=== PATIENT | male | born 1940 | race Caucasian/White ===

== ENCOUNTER 2022-03-22 07:47 | Emergency (ER) | payer OTHER ==
--- OUTSIDE RECORDS SUMMARY | 2022-03-22 07:51 | XMS REPORT | Continuity of Care Document ---
:1940 Author Organization [facility] t Address [address] [place] [address] Care Team Providers Name Role Phone Sandra Tiwari Attending Clinician Unavailable Payers Payer Name Policy Type Policy Number Effective Date Expiration Date Brice stahl [employer] MEDICARE 53 [id number] 2021 Common S pirit 00:00:00 - [facility] Problems Condition Condition Condition Status Onset Resolution Last Treating Co mments Source Name Details Category Date Date Treatment Clinician Date [id number] Gastroesop Problem Active Co mmon hageal Spirit reflux - [facility] disease without 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 2 [facility] [place] [id number] Mixed Problem Active Common hyperlipid Spirit emia - [facility] [id number] Essential Problem Active Comm on (primary) Spirit hypertensi - [facility] on [facility] [id number] [place] [id number] prostatic Spirit hyperplasi - [facility] a with lower [facility] urinary Medical tract Center symptoms Hyperglyce Type 2 Problem Active Commo n be due to diabetes Spir it type 2 mellitus - [facility] diabetes with mellitus hyperglyce [facility], Medical without Center long-term current use of insulin Allergies, Adverse Reactions, Alerts This patient has no known allergies or adverse reactions. Social History Social Habit Start Date Stop Date Quantity Comments Source History of Tobacco Use Co mmon Spirit - [facility] Sex Assigned At Com mon [facility] Smoking Status Start Date Stop Date Source Never Smoker Common [facility] Medications Ordered Filled Start Stop Current Ordering Indication Dosage Frequency Signature Comments Components Source Medication Medication Date Date Medication? Clinician (SIG) Name Name Blood Blood No QD Blood Glucose Glucose 7-22 Glucose Test - Test - 00:00: Test - Blood Blood No QD Blood Glucose Glucose 7-22 Glucose Test - Test - 00:00: Test - Blood Blood No QD Blood Glucose Glucose 7-22 Glucose Test - Test - 00:00: Test - Blood Blood No QD Blood Glucose Glucose 7-22 Glucose Test - Test - 00:00: Test Albuterol Albuterol No 1{puff_ 6xD Albuterol Sulfate HFA Sulfate HFA 3-01 as_need Sulfate 108 (90 108 (90 00:00: ed} HFA 108 Base) Base) 00 (90 Base) MCG/ACT MCG/ACT MCG/ACT Albuterol Albuterol No 1{puff_ 6xD Albuterol Sulfate HFA Sulfate HFA as_need Sulfate 108 (90 108 (90 ed} HFA 108 Base) Base) (90 Base) MCG/ACT MCG/ACT MCG/ACT Fluorouraci Fluorouraci No 1{appli BID Fluorourac l 5 % l 5 % cation} il 5 % Simvastatin Simvastatin No Simvastati 40 MG 40 MG n 40 MG Metoprolol Metoprolol No Metoprolol Tartrate 50 Tartrate 50 Tartrate MG MG 50 MG Lisinopril Lisinopril No QD Lisinopril 5 MG 5 MG 5 MG Terazosin Terazosin No Terazosin HCl 10 MG HCl 10 MG HCl 10 MG Lisinopril Lisinopril No Lisinopril 5 MG 5 MG 5 MG Pantoprazol Pantoprazol No 1{table QD Pantoprazo e Sodium 40 e Sodium 40 t} le Sodium MG MG 40 MG metFORMIN metFORMIN No BID metFORMIN HCl 1000 MG HCl 1000 MG HCl 1000 MG glipiZIDE glipiZIDE No QD glipiZIDE 10 MG 10 MG 10 MG Albuterol Albuterol No 1{puff_ 6xD Albuterol Sulfate HFA Sulfate HFA as_need Sulfate 108 (90 108 (90 ed} HFA 108 Base) Base) (90 Base) MCG/ACT MCG/ACT MCG/ACT Fluorouraci Fluorouraci No 1{appli BID Fluorourac l 5 % l 5 % cation} il 5 % Simvastatin Simvastatin No Simvastati 40 MG 40 MG n 40 MG Metoprolol Metoprolol No Metoprolol Tartrate 50 Tartrate 50 Tartrate MG MG 50 MG Lisinopril Lisinopril No QD Lisinopril 5 MG 5 MG 5 MG Terazosin Terazosin No Terazosin HCl 10 MG HCl 10 MG HCl 10 MG Lisinopril Lisinopril No Lisinopril 5 MG 5 MG 5 MG Pantoprazol Pantoprazol No 1{table QD Pantoprazo e Sodium 40 e Sodium 40 t} le Sodium MG MG 40 MG glipiZIDE glipiZIDE No QD glipiZIDE 10 MG 10 MG 10 MG Fluorouraci Fluorouraci No 1{appli BID Fluorourac l 5 % l 5 % cation} il 5 % Terazosin Terazosin No Terazosin HCl 10 MG HCl 10 MG HCl 10 MG Albuterol Albuterol No 1{puff_ 6xD Albuterol Sulfate HFA Sulfate HFA as_need Sulfate 108 (90 108 (90 ed} HFA 108 Base) Base) (90 Base) MCG/ACT MCG/ACT MCG/ACT Lisinopril Lisinopril No QD Lisinopril 5 MG 5 MG 5 MG Metoprolol Metoprolol No Metoprolol Tartrate 50 Tartrate 50 Tartrate MG MG 50 MG metFORMIN metFORMIN No BID metFORMIN HCl 1000 MG HCl 1000 MG HCl 1000 MG Lisinopril Lisinopril No Lisinopril 5 MG 5 MG 5 MG Simvastatin Simvastatin No Simvastati 40 MG 40 MG n 40 MG Pantoprazol Pantoprazol No 1{table QD Pantoprazo e Sodium 40 e Sodium 40 t} le Sodium MG MG 40 MG glipiZIDE glipiZIDE No QD glipiZIDE 10 MG 10 MG 10 MG Fluorouraci Fluorouraci No 1{appli BID Fluorourac l 5 % l 5 % cation} il 5 % Terazosin Terazosin No Terazosin HCl 10 MG HCl 10 MG HCl 10 MG Albuterol Albuterol No 1{puff_ 6xD Albuterol Sulfate HFA Sulfate HFA as_need Sulfate 108 (90 108 (90 ed} HFA 108 Base) Base) (90 Base) MCG/ACT MCG/ACT MCG/ACT Lisinopril Lisinopril No QD Lisinopril 5 MG 5 MG 5 MG Metoprolol Metoprolol No Metoprolol Tartrate 50 Tartrate 50 Tartrate MG MG 50 MG metFORMIN metFORMIN No BID metFORMIN HCl 1000 MG HCl 1000 MG HCl 1000 MG Lisinopril Lisinopril No Lisinopril 5 MG 5 MG 5 MG Simvastatin Simvastatin No Simvastati 40 MG 40 MG n 40 MG Pantoprazol Pantoprazol No 1{table QD Pantoprazo e Sodium 40 e Sodium 40 t} le Sodium MG MG 40 MG Terazosin Terazosin No 1{capsu QD Terazosin HCl 10 MG HCl 10 MG le_at_b HCl 10 MG edtime} Simvastatin Simvastatin No 1{table QD Simvastati 40 MG 40 MG t_in_th n 40 MG e_eveni ng} Metoprolol Metoprolol No 1{table BID Metoprolol Tartrate 50 Tartrate 50 t_with_ Tartrate MG MG food} 50 MG glipiZIDE glipiZIDE No BID glipiZIDE 10 MG 10 MG 10 MG Lisinopril Lisinopril No Lisinopril 5 MG 5 MG 5 MG Pantoprazol Pantoprazol No 1{table QD Pantoprazo e Sodium 40 e Sodium 40 t} le Sodium MG MG 40 MG Metformin Metformin No 1{table BID Metformin HCl 1000 MG HCl 1000 MG t_with_ HCl 1000 meals} MG Metoprolol Metoprolol No Metoprolol Tartrate 50 Tartrate 50 Tartrate MG MG 50 MG Lisinopril Lisinopril No Lisinopril 5 MG 5 MG 5 MG Terazosin Terazosin No 1{capsu QD Terazosin HCl 10 MG HCl 10 MG le_at_b HCl 10 MG edtime} glipiZIDE glipiZIDE No glipiZIDE 10 MG 10 MG 10 MG Lisinopril Lisinopril No Lisinopril 5 MG 5 MG 5 MG Simvastatin Simvastatin No Simvastati 40 MG 40 MG n 40 MG metFORMIN metFORMIN No metFORMIN HCl 1000 MG HCl 1000 MG HCl 1000 MG Albuterol Albuterol No 1{puff_ 6xD Albuterol Sulfate HFA Sulfate HFA as_need Sulfate 108 (90 108 (90 ed} HFA 108 Base) Base) (90 Base) MCG/ACT MCG/ACT MCG/ACT Pantoprazol Pantoprazol No 1{table QD Pantoprazo e Sodium 40 e Sodium 40 t} le Sodium MG MG 40 MG Trulicity Trulicity No Trulicity 0.75 0.75 0.75 MG/0.5ML MG/0.5ML MG/0.5ML metFORMIN metFORMIN No BID metFORMIN HCl 1000 MG HCl 1000 MG HCl 1000 MG glipiZIDE glipiZIDE No QD glipiZIDE 10 MG 10 MG 10 MG Trulicity Trulicity 2021- No Trulicity 0.75 0.75 05-30 0.75 MG/0.5ML MG/0.5ML 00:00 MG/0.5ML :00 Vital Signs Vital Name Observation Time Observation Value Comments Source height 2021-11-23 14:30:00 70 [in_i] [facility] weight 2021-11-23 14:30:00 179.9 [lb_av] [facility] temperature 2021-11-23 14:30:00 97.1 [degF] [facility] bmi 2021-11-23 14:30:00 25.81 kg/m2 [facility] blood pressure 2021-11-23 14:30:00 138 mm[Hg] Common [facility] - systolic [facility] blood pressure 2021-11-23 14:30:00 76 mm[Hg] Common [facility] - diastolic [facility] height 2021-11-19 15:20:00 70 [in_i] [facility] weight 2021-11-19 15:20:00 178 [lb_av] [facility] temperature 2021-11-19 15:20:00 97.8 [degF] [facility] bmi 2021-11-19 15:20:00 25.54 kg/m2 [facility] oximetry 2021-11-19 15:20:00 96 % [facility] respiratory rate 2021-11-19 15:20:00 16 /min Comm on [facility] blood pressure 2021-11-19 15:20:00 128 mm[Hg] Common [facility] - systolic [facility] blood pressure 2021-11-19 15:20:00 72 mm[Hg] Common [facility] - diastolic [facility] height 2021-11-19 15:40:00 70 [in_i] [facility] weight 2021-11-19 15:40:00 178 [lb_av] Common S [facility] temperature 2021-11-19 15:40:00 97.8 [degF] Common [facility] bmi 2021-11-19 15:40:00 25.54 kg/m2 [facility] oximetry 2021-11-19 15:40:00 96 % [facility] respiratory rate 2021-11-19 15:40:00 16 /min Comm on [facility] blood pressure 2021-11-19 15:40:00 128 mm[Hg] Common [facility] - systolic [facility] blood pressure 2021-11-19 15:40:00 72 mm[Hg] Common [facility] - diastolic [facility] height 2021-06-29 14:40:00 70 [in_i] Common [facility] weight 2021-06-29 14:40:00 180.2 [lb_av] Common [facility] temperature 2021-06-29 14:40:00 98.2 [degF] Common S [facility] bmi 2021-06-29 14:40:00 25.85 kg/m2 Common S [facility] oximetry 2021-06-29 14:40:00 98 % Common [facility] respiratory rate 2021-06-29 14:40:00 16 /min Comm on [facility] blood pressure 2021-06-29 14:40:00 139 mm[Hg] Common [facility] - systolic [facility] blood pressure 2021-06-29 14:40:00 64 mm[Hg] Common [facility] - diastolic [facility] Procedures This patient has no known procedures. Encounters Start End Encounter Admission Attending Care Care Encounter Source Date/Time Date/Time Type Type Clinicians Facility Department ID 2022-01-13 Outpatient Tiwari, STABRANLC STLMLC [id number] Common 08:03:01 Sandra [facility] 2021-11-17 Outpatient Tiwari, STLMLC STLMLC [id number] Common 10:30:02 Sandra [facility] 2021-10-20 Outpatient Tiwari, STABRANLC STLMLC [id number] Common 13:40:02 Sandra [facility] 2021-10-15 Outpatient Tiwari, STABRANLC STLMLC [id number] Common 14:04:03 Sandra [facility] 2021-10-14 Outpatient Tiwari, STLMLC STLMLC [id number] Common 10:30:01 Sandra [facility] 2021-10-06 Outpatient Tiwari, STABRANLC STLMLC [id number] Common 09:59:03 Sandra [facility] 2021-07-01 Outpatient Tiwari, STABRANLC STLMLC [id number] Common 08:41:04 Sandra [facility] 2021-06-29 Outpatient Tiwari, STABRANLC STLMLC [id number] Common 14:19:02 Sandra [facility] 2021-12-22 2021-12-22 (TEL) STLMLC STLMLC [id number] Co mmon 00:00:00 00:00:00 [facility] 2021-11-23 2021-11-23 OFFICE STLMLC STLMLC [id number] Co mmon 00:00:00 00:00:00 VISIT [facility] PT LEVEL 3 [facility] 2021-11-19 2021-11-19 (MCR WELL) STLMLC STLMLC [id number] Common 00:00:00 00:00:00 Medicare [facility]iri t [facility] - [facility] 2021-11-19 2021-11-19 OFFICE STLMLC STLMLC [id number] Co mmon 00:00:00 00:00:00 VISIT Bobo PUENTE PT - CHI LEVEL 4 [facility] 2021-10-18 2021-10-18 (TEL) STLMLC STLMLC [id number] Co mmon 00:00:00 00:00:00 Spirit - [facility] 2021-06-29 2021-06-29 OFFICE STLC STLMLC [id number] Co mmon 00:00:00 00:00:00 VISIT Bobo PUENTE PT - CHI LEVEL 4 [facility] Results Test Description Test Time Test Comments Results Result Comments Source HEMOGLOBIN A1C 2021-06-29 00:00:00 Test Item Value Reference Range Interpretation Comme nts A1C (test code = 4548-4) 7.8
[2022-03-22 08:25] LABS: Absolute Lymphocytes (CBC) 1.2 K/uL (0.7-4.9); Hematocrit 37.1 % (39.6-49.0); Lymphocytes % 13.9 % (15.3-44.8); MCV 91.4 fL (80-100); MPV 7.7 fL (7.6-11.3); RBC Red Blood Cell Count 4.06 M/uL (4.33-5.43)
[2022-03-22 08:46] LABS: Potassium 4.1 mmol/L (3.5-5.1); Troponin High Sensitivity 18.9 pg/mL (<58.9)
[2022-03-22] MEDS ORDERED: TETANUS & DIPHTHERIA TOX,ADULT 0.5 ML VIAL ONE (08:49)
--- NOTE | 2022-03-22 09:11 | RAD REPORT ---
EXAM DESCRIPTION: RAD - Knee Left 3 View - 03/22/2022 8:38 am CLINICAL HISTORY: Left knee pain FINDINGS: No acute fracture or dislocation is seen. Oval bony/ calcific density posterior knee may represent a loose body
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
[2022-03-22 10:30] VITALS: TEMP 97.5; O2SAT 100
[2022-03-22 10:33] VITALS: BP 174/64
--- NOTE | 2022-03-23 11:37 | EKG ---
Test Date: 2022-03-22 Test Time: 08:27:19 Fire Protection Specialist: JOSÉ MEASUREMENT RESULTS: Intervals: Rate: 72 KS: 136 QRSD: 98 QT: 388 QTc: 424 [place]: P: 257 KS: 136 QRS: 16 T: -42 INTERPRETIVE STATEMENTS: Unusual P axis and short KS, probable junctional rhythm Cannot rule out Inferior infarct, age undetermined Abnormal ECG Compared to ECG 03/10/2015 07:42:24 Sinus bradycardia no longer present Myocardial infarct finding still present Electronically Signed On 03-23-22 11:34:43 DRAIN TILER by Woody Judd
== END 2022-03-22 10:21 | disposition home or self-care (01) ==
LOC: ER 07:47
DX: S00.511A Abrasion of lip, initial encounter (principal); M25.562 Pain in left knee; V49.9XXA Car occupant (driver) (passenger) injured in unspecified traffic accident, initial encounter; Z23 Encounter for immunization; I10 Essential (primary) hypertension; E11.9 Type 2 diabetes mellitus without complications
CPT/HCPCS: 85025; 80048; 36415; 86900; 86850; 86901; 84484; 70450; 72125; 71260; 74177; 73562; 90714; Q9967; 93005

== ENCOUNTER 2023-02-02 05:32 | Emergency (ER) | payer OTHER ==
--- OUTSIDE RECORDS SUMMARY | 2023-02-02 05:35 | XMS REPORT | Continuity of Care Document ---
:1940 Author Organization [facility] t Address [address] [place] [address] Care Team Providers Name Role Phone Sandra Tiwari Attending Clinician Unavailable Payers Payer Name Policy Type Policy Number Effective Date Expiration Date Brice stahl [employer] MEDICARE 53 [id number] 2021 Common S pirit 00:00:00 - [facility] Problems Condition Condition Condition Status Onset Resolution Last Treating Co mments Source Name Details Category Date Date Treatment Clinician Date [id number] Gastroesop Problem Active Co mmon hageal Spirit reflux - [facility] disease without [facility] [id number] Stage 3a Problem Active Comm on chronic Spirit kidney - [facility] disease [facility] [id number] Diabetic Problem Active 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 Spirit y - [facility] associated St with type [facility] 2 diabetes [facility] mellitus [place] [id number] Mixed Problem Active Common hyperlipid Spirit emia - [facility] [id number] Essential Problem Active Comm on (primary) Spirit hypertensi - [facility] on [facility] [id number] [place] [id number] prostatic Spirit hyperplasi - [facility] a with lower [facility] urinary Medical tract Center symptoms Hyperglyce Type 2 Problem Active Commo n be due to diabetes Spir it type 2 mellitus - [facility] diabetes with mellitus hyperglyce [place] s [facility], Medical without Center long-term current use of insulin Allergies, Adverse Reactions, Alerts This patient has no known allergies or adverse reactions. Social History Social Habit Start Date Stop Date Quantity Comments Source History of Tobacco Use Co mmon [facility] - [facility] Sex Assigned At Com [facility] Smoking Status Start Date Stop Date Source Never Smoker Common [facility] Medications Ordered Filled Start Stop Current [...] Base) 00 (90 Base) MCG/ACT MCG/ACT MCG/ACT metFORMIN metFORMIN No BID metFORMIN HCl 1000 [...] Tartrate 50 Tartrate MG MG 50 [facility]opril No QD Lisinopril 5 MG 5 [...] Trulicity 0.75 0.75 0.75 MG/0.5ML MG/0.5ML MG/0.5ML Trulicity Trulicity 2021- No Trulicity 0.75 0.75 05-30 0.75 MG/0.5ML MG/0.5ML 00:00 MG/0.5ML :00 Vital Signs Vital Name Observation Time Observation Value Comments Source height 2021-11-23 14:30:00 70 [in_i] [facility] weight 2021-11-23 14:30:00 179.9 [lb_av] [facility] temperature 2021-11-23 14:30:00 97.1 [degF] [facility] bmi 2021-11-23 14:30:00 25.81 kg/m2 [facility] blood pressure 2021-11-23 14:30:00 138 mm[Hg] Common [facility] - systolic [facility] blood pressure 2021-11-23 14:30:00 76 mm[Hg] Common Spirit - diastolic [facility] height 2021-11-19 15:20:00 70 [in_i] [facility] weight 2021-11-19 15:20:00 178 [lb_av] [facility] temperature 2021-11-19 15:20:00 97.8 [degF] [facility] bmi 2021-11-19 15:20:00 25.54 kg/m2 [facility] oximetry 2021-11-19 15:20:00 96 % [facility] respiratory rate 2021-11-19 15:20:00 16 /min Comm [facility] blood pressure 2021-11-19 15:20:00 128 mm[Hg] Common [facility] - systolic [facility] blood pressure 2021-11-19 15:20:00 72 mm[Hg] Common [facility] - diastolic [facility] height 2021-11-19 15:40:00 70 [in_i] [facility] weight 2021-11-19 15:40:00 178 [lb_av] Common S [facility] temperature 2021-11-19 15:40:00 97.8 [degF] Common [facility] bmi 2021-11-19 15:40:00 25.54 kg/m2 [facility] oximetry 2021-11-19 15:40:00 96 % [facility] respiratory rate 2021-11-19 15:40:00 16 /min Comm on [facility] blood pressure 2021-11-19 15:40:00 128 mm[Hg] Common [facility] - systolic [facility] blood pressure 2021-11-19 15:40:00 72 mm[Hg] Common [facility] - diastolic [facility] height 2021-06-29 14:40:00 70 [in_i] Common [facility] weight 2021-06-29 14:40:00 180.2 [lb_av] Common [facility] temperature 2021-06-29 14:40:00 98.2 [degF] Common S [facility] bmi 2021-06-29 14:40:00 25.85 kg/m2 Common S [facility] oximetry 2021-06-29 14:40:00 98 % Common [facility] respiratory rate 2021-06-29 14:40:00 16 /min Comm on [facility] blood pressure 2021-06-29 14:40:00 139 mm[Hg] Common [facility] - systolic [facility] blood pressure 2021-06-29 14:40:00 64 mm[Hg] Common [facility] - diastolic [facility] Procedures This patient has no known procedures. Encounters Start End Encounter Admission Attending Care Care Encounter Source Date/Time Date/Time Type Type Clinicians Facility Department ID 2022-09-09 Outpatient Tiwari, STABRANLC STLMLC [id number] Common 10:34:01 [facility] 2022-06-06 Outpatient Tiwari, STABRANLC STLMLC [id number] Common 08:22:01 [facility] 2022-01-13 Outpatient Tiwari, STABRANLC STLMLC [id number] Common 08:03:01 [facility] 2021-11-17 Outpatient Tiwari, STABRANLC STLC [id number] Common 10:30:02 [facility] 2021-10-20 Outpatient Tiwari, STLMLC STLC [id number] Common 13:40:02 [facility] 2021-10-15 Outpatient Tiwari, STABRANLC STLMLC [id number] Common 14:04:03 [facility] 2021-10-14 Outpatient Tiwari, STABRANLC STLMLC [id number] Common 10:30:01 [facility] 2021-10-06 Outpatient Tiwari, STLMLC STLMLC [id number] Common 09:59:03 [facility] 2021-07-01 Outpatient Tiwari, STLMLC STLMLC [id number] Common 08:41:04 [facility] 2021-06-29 Outpatient Tiwari, STABRANLC STLMLC [id number] Common 14:19:02 [facility] 2021-12-22 2021-12-22 (TEL) STLC STLMLC [id number] Co mmon 00:00:00 00:00:00 Spirit - [facility] 2021-11-23 2021-11-23 OFFICE STLMLC STLMLC [id number] Co mmon 00:00:00 00:00:00 VISIT NEW Spir it PT LEVEL 3 - [facility] 2021-11-19 2021-11-19 (MCR WELL) STLMLC STLMLC [id number] Common 00:00:00 00:00:00 Medicare Spiri t Wellness - [facility] 2021-11-19 2021-11-19 OFFICE STLMLC STLMLC [id number] Co mmon 00:00:00 00:00:00 VISIT [facility] PT - CHI LEVEL 4 [facility] 2021-10-18 2021-10-18 (TEL) STLMLC STLMLC [id number] Co mmon 00:00:00 00:00:00 Spirit [facility] 2021-06-29 2021-06-29 OFFICE STLMLC STLMLC [id number] Co mmon 00:00:00 00:00:00 VISIT [facility] PT - CHI LEVEL 4 [facility] Results Test Description Test Time Test Comments Results Result Comments Source HEMOGLOBIN A1C 2021-06-29 00:00:00 Test Item Value Reference Range Interpretation Comme nts A1C (test code = 4548-4) 7.8
[2023-02-02] MEDS ORDERED: CODEINE 30MG/APAP 300MG TAB ONE (06:34)
[2023-02-02] MEDS ORDERED: IBUPROFEN 400 MG TAB ONE (06:35)
[2023-02-02] MEDS ORDERED: CEFTRIAXONE 1000 MG/VIAL ONE (06:35)
--- NOTE | 2023-02-02 07:57 | ER ---
Nurse's Notes [facility] Name: Bon Das Age: 82 yrs Sex: Male : 1940 Arrival Date: 02/02/2023 Time: 05:32 Bed 8 Private MD: Diagnosis: Other specified viral diseases;Acute COVID-19, acute pharyngitis Presentation: 02/02 05:47 Chief complaint: Patient states: SORE THROAT x2 DAYS. Coronavirus screen: headache, bp sore throat. Ebola Screen: No symptoms or risks identified at this time. Initial Sepsis Screen: Does the patient meet any 2 criteria? No. Patient's initial sepsis screen is negative. Does the patient have a suspected source of infection? No. Patient's initial sepsis screen is negative. Risk Assessment: Do you want to hurt yourself or someone else? Patient reports no desire to harm self or others. Onset of symptoms is unknown. 05:47 Method Of Arrival: Ambulatory bp 05:47 Acuity: JOSE CRUZ 3 bp Triage Assessment: 05:48 General: Appears in no apparent distress. Behavior is calm, cooperative, appropriate bp for age. Pain: Complains of pain in neck. Respiratory: Reports shortness of breath CHRONIC Onset: The symptoms/episode began/occurred yesterday, the patient reports symptoms have resolved. Historical: - Allergies: 05:48 No Known Allergies; bp - Home Meds: 05:48 glipizide 10 mg Oral tab [Active]; hydrochlorothiazide 25 mg Oral tab [Active]; bp lisinopril 5 mg Oral tab [Active]; metformin 1 Oral tab 1 tab 2 times per day [Active]; metoprolol tartrate 50 mg Oral tab [Active]; simvastatin 40 mg Oral tab [Active]; - PMHx: 05:48 diabetes mellitus; Hypertensive disorder; bp - PSHx: 05:48 Bipass; bp - Immunization history:: Adult Immunizations up to date. - Social history:: Smoking status: Patient denies any tobacco usage or history of. - Family history:: not pertinent. Screenin:[facility] ED Fall Risk Assessment (Adult) History of falling in the last 3 months, ph including since admission No falls in past 3 months (0 pts) Score/Fall Risk Level 0 - 2 = Low Risk Oriented to surroundings, Maintained a safe environment, Provided non-skid footwear. Abuse screen: Denies threats or abuse. Denies injuries from another. Nutritional screening: No deficits noted. Tuberculosis screening: No symptoms or risk factors identified. Assessment: 08:35 Reassessment: Patient appears in no apparent distress at this time. Patient and/or ph family updated on plan of care and expected duration. Pain level reassessed. Patient is alert, oriented x 3, equal unlabored respirations, skin warm/dry/pink. Vital Signs: 05:47 BP 181 / 80; Pulse 112; Resp 20; Temp 97.8; Pulse Ox 100% ; Weight 72.57 kg; bp 08:31 BP 155 / 70; Pulse 95; Resp 18; Pulse Ox 98% on R/A; ph ED Course: 05:36 Patient arrived in ED. ag3 05:45 Gerry Bundy MD is Attending Physician. sp4 05:47 Hardeep Torres, RN is Primary Nurse. bp 05:48 Triage completed. bp 05:48 Arm band placed on. bp 08:31 Patient has correct armband on for positive identification. Pulse ox on. NIBP on. ph 08:36 No provider procedures requiring assistance completed. Patient did not have IV access ph during this emergency room visit. Administered Medications: 05:46 CANCELLED (Duplicate Order): influenza virus vaccine ped0.25 ml IM once; Provide the sp4 Vaccine Information Statement (VIS). 06:10 Drug: Rocephin (cefTRIAXone) IM 1 grams IM once Route: IM; Site: right gluteus; bp 06:15 Drug: Acetaminophen-Codeine PO (300 mg-30 mg) 2 tabs PO once; RASS on ADMIN: Combtv4, bp Very Agttd3, Agttd2, Rstlss1, AlertClm0, Drwsy-1, Lt Sdtn-2, Mod Sdtn-3, Dp Sdtn-4, UnArsble-5 Route: PO; 06:15 Drug: Ibuprofen PO 400 mg PO once Route: PO; bp Medication: 08:31 VIS not applicable for this client. ph Outcome: 07:56 Discharge ordered by . sp4 08:36 Discharged to home ambulatory, with significant other, ph 08:36 Condition: good 08:36 Discharge instructions given to patient, significant other, Instructed on discharge instructions, follow up and referral plans. medication usage, Demonstrated understanding of instructions, follow-up care, medications, Prescriptions given X 3, 08:36 Patient left the ED. ph Signatures: Adeola Davis RN RN ph Hardeep Torres RN RN bp Vandana Cortez ag3 Gerry Bundy MD MD sp4 Corrections: (The following items were deleted from the chart) 05:59 05:47 BP 181 / 80; Pulse 112bpm; Resp 20bpm; Pulse Ox 100%; Temp 97.8F; bp bp
--- NOTE | 2023-02-02 07:57 | EDPHYS ---
Physician Documentation [facility] Name: Bon Das Age: 82 yrs Sex: Male : 1940 Arrival Date: 02/02/2023 Time: 05:32 Bed 8 Private MD: ED Physician Gerry Bundy HPI: 02/02 05:46 This 82 yrs old Male presents to ER via Unassigned with complaints of Cold sp4 Symptoms, Breathing Difficulty. 05:47 PMH - Allergies: 08:04 No Known Allergies Home Meds: 08:04 metoprolol tartrate 50 mg sp4 oral tab; glipizide 10 mg oral tab; metformin 1,000 mg oral tab; hydrochlorothiazide 25 mg oral tab; simvastatin 40 mg oral tab; lisinopril 5 mg oral PMHx: 08:04 Hypertensive disorder; Diabetes mellitus; PSHx: CABG . 05:57 82-year-old male with history diabetes hypertensive disorder and prostate hypertrophy sp4 presents with acute onset off sore throat cough and runny nose starting on Monday 2 days ago. Patient reports pain with swallowing denied any fever chills or body aches. . Historical: - Allergies: 05:48 No Known Allergies; bp - Home Meds: 05:48 glipizide 10 mg Oral tab [Active]; hydrochlorothiazide 25 mg Oral tab [Active]; bp lisinopril 5 mg Oral tab [Active]; metformin 1 Oral tab 1 tab 2 times per day [Active]; metoprolol tartrate 50 mg Oral tab [Active]; simvastatin 40 mg Oral tab [Active]; - PMHx: 05:48 diabetes mellitus; Hypertensive disorder; bp - PSHx: 05:48 [place]; bp - Immunization history:: Adult Immunizations up to date. - Social history:: Smoking status: Patient denies any tobacco usage or history of. - Family history:: not pertinent. ROS: 05:57 Constitutional: Negative for fever, chills, and weight loss, ENT: Positive sore throat, sp4 pain on swallowing, runny nose 05:57 All other systems are negative, Exam: 05:57 Constitutional: This is a well developed, well nourished patient who is awake, alert, sp4 and in no acute distress. Head/Face: Normocephalic, atraumatic. Eyes: Pupils equal round and reactive to light, extra-ocular motions intact. Lids and lashes normal. Conjunctiva and sclera are not injected. Cornea within normal limits. Periorbital areas with no swelling, redness, or edema. ENT: Nares patent. No nasal discharge, no septal abnormalities noted. Tympanic membranes are normal and external auditory canals are clear. Oropharynx with bilateral redness and irritation without exudates, no tonsillar enlargement. Neck: Trachea midline, no thyromegaly or masses palpated, and no cervical lymphadenopathy. Supple, full range of motion without nuchal rigidity, or vertebral point tenderness. Chest/axilla: Normal chest wall appearance and motion. Nontender with no deformity. No lesions are appreciated. Cardiovascular: Regular rate and rhythm with a normal S1 and S2. No gallops, murmurs, or rubs. Normal PMI, no JVD. No pulse deficits. Respiratory: Lungs have equal breath sounds bilaterally, clear to auscultation and percussion. No rales, rhonchi or wheezes noted. No increased work of breathing, no retractions or nasal flaring. Abdomen/GI: Soft, non-tender, with normal bowel sounds. No distension or tympany. No guarding or rebound. No evidence of tenderness throughout. Back: No spinal tenderness. No costovertebral tenderness. Skin: Warm, dry with normal turgor. Normal color with no rashes, no lesions, and no evidence of cellulitis. MS/ Extremity: Pulses equal, no cyanosis. Neurovascular intact. Full, normal range of motion. Neuro: Awake and alert, GCS 15, oriented to person, place, time, and situation. Cranial nerves II-XII grossly intact. Motor strength 5/5 in all extremities. Sensory grossly intact. Psych: Awake, alert, with orientation to person, place and time. Behavior, mood, and affect are within normal limits Vital Signs: 05:47 BP 181 / 80; Pulse 112; Resp 20; Temp 97.8; Pulse Ox 100% ; Weight 72.57 kg; bp 08:31 BP 155 / 70; Pulse 95; Resp 18; Pulse Ox 98% on R/A; ph MDM: 05:49 Patient medically screened. sp4 06:39 Differential diagnosis: Anxiety Reaction Bronchitis reactive airway disease. Antibiotic sp4 administration: Administered Rocephin IM. Data reviewed: vital signs, nurses notes, old medical records, lab test result(s), Flu: negative. ED course: Influenza is negative. Will treat bacterial pharyngitis. Patient stable for discharge home.. 07:54 ED course: Patient positive for COVID-19. Will prescribe p.o. Paxlovid also as needed sp4 Tylenol 3 and Zithromax for the next 5 days. 02/02 05:51 Order name: Strep bp 02/02 05:45 Order name: COVID-19 SARS RT PCR; Complete Time: 07:58 sp4 02/02 05:46 Order name: Influenza Screen (a \T\ B); Complete Time: 06:37 sp4 02/02 06:20 Order name: Throat Culture EDMS Administered Medications: 05:46 CANCELLED (Duplicate Order): influenza virus vaccine ped0.25 ml IM once; Provide the sp4 Vaccine Information Statement (VIS). 06:10 Drug: Rocephin (cefTRIAXone) IM 1 grams IM once Route: IM; Site: right gluteus; bp 06:15 Drug: Acetaminophen-Codeine PO (300 mg-30 mg) 2 tabs PO once; RASS on ADMIN: Combtv4, bp Very Agttd3, Agttd2, Rstlss1, AlertClm0, Drwsy-1, Lt Sdtn-2, Mod Sdtn-3, Dp Sdtn-4, UnArsble-5 Route: PO; 06:15 Drug: Ibuprofen PO 400 mg PO once Route: PO; bp Disposition Summary: 02/02/23 07:56 Discharge Ordered Notes: Location: Home sp4 Problem: new sp4 Symptoms: have improved sp4 Condition: Stable sp4 Diagnosis - Other specified viral diseases sp4 - Acute COVID-19, acute pharyngitis sp4 Followup: sp4 - With: Private Physician - When: 5 - 6 days - Reason: Recheck today's complaints Discharge Instructions: - Discharge Summary Sheet sp4 - Pharyngitis, [id number] sp4 Forms: - Medication Reconciliation Form sp4 - Thank You Letter sp4 - Antibiotic Education sp4 - Prescription Opioid Use sp4 - Patient Portal Instructions sp4 - Leadership Thank You Letter sp4 Prescriptions: - acetaminophen-codeine 300-30 mg Oral tablet - take 1 tablet ORAL route every 8 hours PRN pain or sore throat; 20 tablet; sp4 Refills: 0, Product Selection Permitted - Paxlovid 300 mg (150 mg x 2)-100 mg Oral Tablet, Dose Pack - take 1 dose pack ORAL route as directed on dose pack take TWO 150 mg tablets of sp4 nirmatrelvir with ONE 100 mg tablet of ritonavir twice daily for 5 days; 1 Pack; Refills: 0, Product Selection Permitted - Zithromax Z-Scott 250 mg Oral Tablet - take 1 tablet ORAL route as directed for 5 days Day 1 - take two (2) tablets sp4 one time. Day 2, 3, 4 , 5 take one (1) tablet once daily.; 6 tablet; Refills: 0, Product Selection Permitted Signatures: Dispatcher [employer] Hardeep Madrigal, RN Gerry Locke MD MD sp4 Corrections: (The following items were deleted from the chart) 05:46 05:45 Influenza Virus Vaccine Ped IM 0.25 ml IM once; Provide the Vaccine Information sp4 Statement (VIS). ordered. sp4
[2023-02-02 09:07] VITALS: TEMP 97.8
[2023-02-02 09:09] VITALS: BP 155/70; O2SAT 98
== END 2023-02-02 08:36 | disposition home or self-care (01) ==
LOC: ER 05:32
DX: U07.1 COVID-19 (principal); E11.9 Type 2 diabetes mellitus without complications; I10 Essential (primary) hypertension
CPT/HCPCS: 87070; 87081; 87635; 87804 ×2; 96372; 99284; J0696

== ENCOUNTER 2023-02-02 22:24 | Inpatient (IN) | payer OTHER ==
--- OUTSIDE RECORDS SUMMARY | 2023-02-02 22:27 | XMS REPORT | Continuity of Care Document ---
:1940 Author Organization [facility] t Address [address] [place] [address] Care Team Providers Name Role Phone TiwariSandra griffith Attending Clinician Unavailable Payers Payer Name Policy Type Policy Number Effective Date Expiration Date Brice stahl [employer] 53 [id number] 2021 Common S pirit 00:00:[address] [facility] Problems Condition Condition Condition Status Onset Resolution Last Treating Co mments Source Name Details Category Date Date Treatment Clinician Date [id number] Gastroesop Problem Active Co mmon hageal [facility] reflux - [facility] disease without [facility] [id number] Stage 3a Problem Active Comm on chronic Spirit kidney - [facility] disease 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 2 [facility] [place] [id number] Mixed Problem Active Common hyperlipid Spirit emia - [facility] [id number] Essential Problem Active Comm on (primary) Spirit hypertensi - [facility] on 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 Social History Social Habit Start Date Stop Date Quantity Comments Source History of Tobacco Use Co mmon [facility] Sex Assigned At Com silvia [facility] Smoking Status Start Date Stop Date Source Never Smoker Common [facility] Medications Ordered Filled Start Stop Current Ordering [...] Test - Test - 00:00: Test - 00 Blood Blood No QD Blood Glucose Glucose 7-22 Glucose Test - Test - 00:00: Test - 00 Albuterol Albuterol No 1{puff_ 6xD Albuterol Sulfate [...] 0.75 0.75 MG/0.5ML MG/0.5ML MG/0.5ML Trulicity Trulicity No Trulicity 0.75 0.75 05-30 0.75 MG/0.5ML MG/0.5ML 00:00 MG/0.5ML :00 Vital Signs Vital Name Observation Time Observation Value Comments Source height 2021-11-23 14:30:00 70 [in_i] [facility] weight 2021-11-23 14:30:00 179.9 [lb_av] [facility] [place] temperature 2021-11-23 14:30:00 97.1 [degF] [facility] bmi 2021-11-23 14:30:00 25.81 kg/m2 [facility] blood pressure 2021-11-23 14:30:00 138 mm[Hg] [facility] - systolic [facility] blood pressure 2021-11-23 14:30:00 76 mm[Hg] [facility] - diastolic [facility] height 2021-11-19 15:20:00 70 [in_i] [facility] weight 2021-11-19 15:20:00 178 [lb_av] [facility] temperature 2021-11-19 15:20:00 97.8 [degF] [facility] bmi 2021-11-19 15:20:00 25.54 kg/m2 [facility] oximetry 2021-11-19 15:20:00 96 % Common [facility] respiratory rate 2021-11-19 15:20:00 16 /min Comm on [facility] blood pressure 2021-11-19 15:20:00 128 mm[Hg] Common [facility] - systolic [facility] blood pressure 2021-11-19 15:20:00 72 mm[Hg] Common [facility] - diastolic [facility] height 2021-11-19 15:40:00 70 [in_i] Common [facility] weight 2021-11-19 15:40:00 178 [lb_av] Common [facility] temperature 2021-11-19 15:40:00 97.8 [degF] Common [facility] bmi 2021-11-19 15:40:00 25.54 kg/m2 [facility] oximetry 2021-11-19 15:40:00 96 % Common [facility] respiratory rate 2021-11-19 15:40:00 16 /min Comm on [facility] blood pressure 2021-11-19 15:40:00 128 mm[Hg] Common [facility] - systolic [facility] blood pressure 2021-11-19 15:40:00 72 mm[Hg] Common [facility] - diastolic [facility] height 2021-06-29 14:40:00 70 [in_i] Common [facility] weight 2021-06-29 14:40:00 180.2 [lb_av] Common [facility] temperature 2021-06-29 14:40:00 98.2 [degF] Common [facility] bmi 2021-06-29 14:40:00 25.85 kg/m2 Common [facility] oximetry 2021-06-29 14:40:00 98 % [facility] respiratory rate 2021-06-29 14:40:00 16 /min Comm on [facility] blood pressure 2021-06-29 14:40:00 139 mm[Hg] Common [facility] - systolic [facility] blood pressure 2021-06-29 14:40:00 64 mm[Hg] Common [facility] - diastolic [facility] Procedures This patient has no known procedures. Encounters Start End Encounter Admission Attending Care Care Encounter Source Date/Time Date/Time Type Type Clinicians Facility Department ID 2022-09-09 Outpatient Tiwari, STLMLC STLMLC [id number] Common 10:34:01 Sandra [facility] 2022-06-06 Outpatient Tiwari, STLMLC STLMLC [id number] Common 08:22:01 Sandra [facility] 2022-01-13 Outpatient Tiwari, STLMLC STLMLC [id number] Common 08:03:01 Sandra [facility] 2021-11-17 Outpatient Tiwari, STLMLC STLMLC [id number] Common 10:30:02 Sandra [facility] 2021-10-20 Outpatient Tiwari, STLMLC STLMLC [id number] Common 13:40:02 Sandra [facility] 2021-10-15 Outpatient Tiwari, STLMLC STLMLC [id number] Common 14:04:03 Sandra [facility] 2021-10-14 Outpatient Tiwari, STLMLC STLMLC [id number] Common 10:30:01 Sandra [facility] 2021-10-06 Outpatient Tiwari, STLMLC STLMLC [id number] Common 09:59:03 Sandra [facility] 2021-07-01 Outpatient Tiwari, STLMLC STLMLC [id number] Common 08:41:04 Sandra [facility] 2021-06-29 Outpatient Tiwari, STLMLC STLMLC [id number] Common 14:19:02 Sandra [facility] 2021-12-22 2021-12-22 (TEL) STLMLC STLMLC [id number] Co mmon 00:00:00 00:00:00 Spirit - [facility] 2021-11-23 2021-11-23 OFFICE STLMLC STLMLC [id number] Co mmon 00:00:00 00:00:00 VISIT NEW Spir it PT LEVEL 3 - [facility] 2021-11-19 2021-11-19 (MCR WELL) STLMLC STLMLC [id number] Common 00:00:00 00:00:00 Medicare Spiri t Wellness - [facility] 2021-11-19 2021-11-19 OFFICE STLMLC STLMLC [id number] Co mmon 00:00:00 00:00:00 VISIT Spirit ESTAB PT - [facility] LEVEL [facility] 2021-10-18 2021-10-18 (TEL) STLMLC STLMLC [id number] Co mmon 00:00:00 00:00:00 Spirit - [facility] 2021-06-29 2021-06-29 OFFICE STLMLC STLMLC [id number] Co mmon 00:00:00 00:00:00 VISIT Spirit [facility] PT - [facility] L[facility] Results Test Description Test Time Test Comments Results Result Comments Source HEMOGLOBIN A1C 2021-06-29 00:00:00 Test Item Value Reference Range Interpretation Comme nts A1C (test code = 4548-4) 7.8
[2023-02-02 23:04] LABS: Absolute Lymphocytes (CBC) 0.3 K/uL (0.7-4.9); Lymphocytes % 3.9 % (15.3-44.8); MCV 91.4 fL (80-100); MPV 8.1 fL (7.6-11.3); Platelets 166 thou/uL (152-406); RBC Red Blood Cell Count 4.04 M/uL (4.33-5.43)
[2023-02-02 23:12] LABS: Protime INR 1.21
[2023-02-02] MEDS ORDERED: CODEINE 30MG/APAP 300MG TAB ONE (23:14)
[2023-02-02] MEDS ORDERED: METOCLOPRAMIDE 5 MG TAB ONE (23:14)
[2023-02-02] MEDS ORDERED: IBUPROFEN 400 MG TAB ONE (23:14)
[2023-02-02] MEDS ORDERED: NA CHLORIDE 0.9% 1,000 ML ONE (23:15)
[2023-02-02 23:29] LABS: Bilirubin Direct 0.2 mg/dL (0-0.2); Bilirubin Indirect, Calculated 0.4 mg/dL (0.2-0.8); Bilirubin Total 0.6 mg/dL (0.2-1.0); Potassium 4.3 mEq/L (3.5-5.1); Protein, Total 6.7 g/dL (6.4-8.2); Troponin High Sensitivity 56.2 pg/mL (<58.9)
[2023-02-02 23:32] LABS: Magnesium 0.8 mg/dL (1.6-2.4)
[2023-02-02] MEDS ORDERED: dexAMETHasone 10 MG/ML VIAL ONE (23:43)
[2023-02-02] MEDS ORDERED: MORPHINE 4 MG/ML SYR ONE (23:43)
[2023-02-02] MEDS ORDERED: ONDANSETRON 4 MG/2 ML VIAL ONE (23:44)
[2023-02-03] MEDS ORDERED: Magnesium Sulfate 2gm IVPB 2 G/50 ML BAG IV ONE (00:23)
--- NOTE | 2023-02-03 01:29 | EDPHYS ---
Physician Documentation [facility] Name: Bon Das Age: 82 yrs Sex: Male : 1940 Arrival Date: 02/02/2023 Time: 22:24 Bed 13 Private MD: ED Physician Gerry Bundy HPI: 02/02 22:30 This 82 yrs old Male presents to ER via Unassigned with complaints of COVID+, sp4 Difficulty Swallowing, Fever. 02/03 01:17 82-year-old male presents to the emergency department with complaint of difficulty sp4 swallowing, fever, feeling badly and also having COVID-positive status. Patient was diagnosed with COVID yesterday in the emergency department when he presented with a sore throat. Patient was managed and felt improved and was released home with Paxlovid p.o., Tylenol with codeine and some ibuprofen. Patient has returned now complaining of worsening throat pain pain difficulty swallowing and also fever. Patient was tachycardic on arrival at 130 bpm.. Historical: - Allergies: 02/02 22:40 No Known Allergies; cm10 - PMHx: 22:40 diabetes mellitus; Hypertensive disorder; cm10 - PSHx: 22:40 Bipass; cm10 - Immunization history:: Adult Immunizations up to date. - Social history:: Smoking status: Patient denies any tobacco usage or history of. - Family history:: not pertinent. ROS: 02/03 01:17 Constitutional: Positive fever, chills, generalized weakness, body aches pain on sp4 swallowing, cough and overall feeling unwell All other systems are negative, Exam: 01:17 Constitutional: This is a well developed, well nourished patient who is awake, alert, sp4 uncomfortable appearing elderly male who is tachycardic, nontoxic-appearing Head/Face: Normocephalic, atraumatic. Eyes: Pupils equal round and reactive to light, extra-ocular motions intact. Lids and lashes normal. Conjunctiva and sclera are not injected. Cornea within normal limits. Periorbital areas with no swelling, redness, or edema. ENT: Nares patent. No nasal discharge, no septal abnormalities noted. Tympanic membranes are normal and external auditory canals are clear. Bilateral posterior pharyngeal erythema, no significant swelling, no tonsillar enlargement, no exudates, significant pharyngitis without exudative tonsillitis Neck: Trachea midline, no thyromegaly or masses palpated, and no cervical lymphadenopathy. Supple, full range of motion without nuchal rigidity, or vertebral point tenderness. Chest/axilla: Normal chest wall appearance and motion. Nontender with no deformity. No lesions are appreciated. Cardiovascular: Regular tachycardia. no gallops, murmurs, or rubs. Normal PMI, no JVD. No pulse deficits. Respiratory: Lungs have equal breath sounds bilaterally, clear to auscultation and percussion. No rales, rhonchi or wheezes noted. No increased work of breathing, no retractions or nasal flaring. Abdomen/GI: Soft, non-tender, with normal bowel sounds. No distension or tympany. No guarding or rebound. No evidence of tenderness throughout. Back: No spinal tenderness. No costovertebral tenderness. Skin: Warm, dry with normal turgor. Normal color with no rashes, no lesions, and no evidence of cellulitis. MS/ Extremity: Pulses equal, no cyanosis. Neurovascular intact. Full, normal range of motion. Neuro: Awake and alert, GCS 15, oriented to person, place, time, and situation. Cranial nerves II-XII grossly intact. Motor strength 5/5 in all extremities. Sensory grossly intact. Psych: Awake, alert, with orientation to person, place and time. Behavior, mood, and affect are within normal limits 01:17 ECG was reviewed by the Attending Physician. EKG time 2241, there is sinus tachycardia sp4 at a rate of 130. There are ED is for no ST elevation or depression, no ectopy, there is signs of left ventricular hypertrophy Vital Signs: 02/02 22:37 BP 150 / 68; Pulse 141; Resp 28 S; Temp 99.6; Pulse Ox 98% on R/A; Weight 80.74 kg (R); cm10 Height 5 ft. 9 in. (R); 23:21 BP 136 / 62; Pulse 120; Resp 19 S; Pulse Ox 97% on R/A; ha1 23:35 BP 132 / 58; Pulse 118; Resp 17 S; Temp 98.9(O); Pulse Ox 96% on R/A; ha1 02/03 00:00 BP 115 / 54; Pulse 119; Resp 16 S; Pulse Ox 96% on R/A; ha1 00:30 BP 108 / 55; Pulse 109; Resp 16 S; Pulse Ox 98% on 2 lpm NC; ha1 01:00 BP 121 / 63; Pulse 110; Resp 16 S; Pulse Ox 98% on 2 lpm NC; ha1 01:30 BP 111 / 62; Pulse 100; Resp 16; Pulse Ox 98% on 2 lpm NC; ha1 02/02 22:37 Body Mass Index 26.29 (80.74 kg, 175.26 cm) cm10 MDM: 02/02 22:31 Patient medically screened. sp4 02/03 01:17 ED course: chest X ray - COMPARISON: Prior radiographs are not available for comparison sp4 FINDINGS: CHEST: Cardiac silhouette at the upper limits of normal. Status post median sternotomy. Pleural plaques bilaterally, larger on the right. Decreased lung volumes. No evidence of airspace consolidation or pleural effusions. Limited evaluation with patient in apical lordotic positioning. Follow-up PA and lateral radiographs would be helpful when clinically feasible. IMPRESSION: 1. Pleural plaques bilaterally, larger on the right. 2. Decreased lung volumes. No evidence of airspace consolidation or pleural effusions. 3. Limited evaluation with patient in apical lordotic positioning. Follow-up PA and lateral radiographs would be helpful when clinically feasible. . 01:26 Differential diagnosis: Allergic rhinitis, apthous stomatitis, bronchitis, influenza, sp4 joe's angina, retropharyngeal abcess. Data reviewed: vital signs, nurses notes, old medical records, lab test result(s), EKG, radiologic studies, plain films. Consideration of Admission/Observation Patient was admitted/placed on observation. Escalation of care including admission/observation considered. Management of patient was discussed with the following: Primary Care Provider: Dr. Saldivar. ED course: Patient presents for the second time in 2 days secondary to worsening sore throat, fever, generalized weakness, feeling unwell, COVID-positive status. Patient warrants admission at this time for pain control, IV dexamethasone was given for presumed moderate to severe pharyngitis, will also cover with Rocephin and Zithromax IV, will order Paxlovid for inpatient administration also hydrocodone as needed every 4 hours for sore throat fever and discomfort. Patient additionally may benefit from low-dose ibuprofen 200 mg every 6 hours for sore throat and fever. Patient will benefit from sliding scale insulin for diabetes management. At this time patient is hemodynamically stable for admission to regular floor without telemetry . . 02/02 22:30 Order name: Basic Metabolic Panel; Complete Time: 00:02 sp4 02/02 22:30 Order name: CBC with Diff; Complete Time: 23:21 sp4 02/02 22:30 Order name: LFT's; Complete Time: 00:02 sp4 02/02 22:30 Order name: Magnesium; Complete Time: 00:02 sp4 02/02 22:30 Order name: NT PRO-BNP; Complete Time: 00:02 sp4 02/02 22:30 Order name: PT-INR; Complete Time: 23:21 sp4 02/02 22:30 Order name: Troponin HS; Complete Time: 00:02 4 02/02 22:31 Order name: CRP; Complete Time: 00:02 4 02/03 01:25 Order name: Blood Culture Adult (2) 4 02/02 22:30 Order name: XRAY Chest (1 view) 4 02/03 01:24 Order name: CT Chest Wo Con sp4 02/02 22:30 Order name: EKG; Complete Time: 22:31 4 02/02 22:30 Order name: Cardiac monitoring; Complete Time: 22:45 4 02/02 22:30 Order name: EKG - Nurse/Tech; Complete Time: 22:44 4 02/02 22:30 Order name: IV Saline Lock; Complete Time: 22:57 4 02/02 22:30 Order name: Labs collected and sent; Complete Time: 22:57 4 02/02 22:30 Order name: O2 Per Protocol; Complete Time: 22:57 4 02/02 22:30 Order name: O2 Sat Monitoring; Complete Time: 22:57 4 EC:17 Rate is 130 beats/min. Rhythm is regular, Sinus tachycardia. MN interval is normal. QRS sp4 interval is normal. QT interval is normal. No ST changes noted. Clinical impression: Sinus tachycardia. Interpreted by me. Administered Medications: 02/02 23:00 Drug: Acetaminophen-Codeine PO (300 mg-30 mg) 2 tabs PO once; RASS on ADMIN: Combtv4, ha1 Very Agttd3, Agttd2, Rstlss1, AlertClm0, Drwsy-1, Lt Sdtn-2, Mod Sdtn-3, Dp Sdtn-4, UnArsble-5 Route: PO; 23:30 Follow up: Response: No adverse reaction; Pain is decreased; RASS: Alert and Calm (0) 1 23:00 Drug: MetoCLOPramide PO 10 mg PO once Route: PO; ha1 23:42 Follow up: Response: No adverse reaction 23:00 Drug: NS 0.9% IV 1000 ml IV at 125 ml/hr continuous Route: IV; Rate: 125 ml/hr; Site: [facility] right antecubital; 23:41 Follow up: Response: No adverse reaction; IV Status: Infusion continued 23:00 Drug: Ibuprofen PO 400 mg PO once Route: PO; ha 23:41 Follow up: Response: No adverse reaction; Temperature is decreased 23:30 Drug: Ondansetron IVP 4 mg IVP once; over 2 minutes Route: IVP; Site: right antecubital;[facility] 02/03 00:00 Follow up: Response: No adverse reaction [facility] 02/02 23:32 Drug: morphine IVP or IV 4 mg IVP once over 4 mins Route: IVP; Infused Over: 4 mins; [facility] Site: right antecubital; 02/03 00:00 Follow up: Response: No adverse reaction; Pain is decreased; RASS: Alert and Calm (0) [facility] 02/02 23:36 Drug: Dexamethasone IVP 10 mg IVP once; (not to exceed 40 mg) Route: IVP; Site: right [facility] antecubital; 02/03 00:00 Follow up: Response: No adverse reaction 1 00:14 Drug: Magnesium Sulfate IVPB 2 grams IVPB once over 2 hrs Route: IVPB; Infused Over: 2 ha1 hrs; Site: right antecubital; 02:00 Follow up: Response: No adverse reaction; IV Status: Completed infusion; IV Intake: [id number] 02:27 Drug: Rocephin - Rocephin (cefTRIAXone) IVPB 1 grams IVPB once over 30 mins; (mix in 50 ha1 mL NS) Route: IVPB; Infused Over: 30 mins; Site: right antecubital; 02:39 Follow up: Response: No adverse reaction; IV Status: Completed infusion; IV Intake: [id number] 02:27 Drug: Zithromax IVPB 500 mg IVPB once over 1 hrs; mix in 250 mL NS Route: IVPB; Infused ha1 Over: 1 hrs; Site: left antecubital; 02:50 Follow up: Response: No adverse reaction; IV Status: Infusion continued ha1 Disposition Summary: 02/03/23 01:29 Hospitalization Ordered Notes: Hospitalization Status: Inpatient Admission sp4 Provider: Ajay Saldivar sp4 Condition: Stable sp4 Problem: new sp4 Symptoms: have improved sp4 Bed/Room Type: Standard sp4 Location: Intensive Care Unit(02/03/23 01:54) bp Room Assignment: -(02/03/23 01:54) bp Diagnosis - Viral infection, unspecified sp4 - Acute COVID-19, throat pain, dyne aphasia, hyponatremia, hyperglycemia, sp4 hypomagnesemia, generalized weakness, sinus tachycardia , and volume depletion Forms: - Medication Reconciliation Form sp4 - SBAR form sp4 - Leadership Thank You Letter sp4 Signatures: Dispatcher [employer] EDHardeep Francisco RN RN bp Hanna Elliott RN RN ha1 Gerry Bundy MD MD sp4 Padmini Ring RN RN cm10 Corrections: (The following items were deleted from the chart) 01:54 01:29 Telemetry/MedSurg (Inpatient) sp4 bp 01:54 01:29 sp4 bp
--- NOTE | 2023-02-03 01:29 | ER ---
Nurse's Notes [facility] Name: Bno Das Age: 82 yrs Sex: Male : 1940 Arrival Date: 02/02/2023 Time: 22:24 Bed 13 Private MD: Diagnosis: Viral infection, unspecified;Acute COVID-19, throat pain, dyne aphasia, hyponatremia, hyperglycemia, hypomagnesemia, generalized weakness, sinus tachycardia , and volume depletion Presentation: 02/02 22:37 Chief complaint: Patient states: unable to swallow onset today. Pt was diagnosed with cm10 COVID today and was given paxlovid and z-pack. Pt also reports shortness of breath. Coronavirus screen: Vaccine status: Patient reports receiving the 2nd dose of the covid vaccine. Patient reports having had a previously documented Covid positive illness. February 02, 2023 Client denies travel out of the [place] in the last 14 days. Ebola Screen: Patient denies travel to an Ebola-affected area in the 21 days before illness onset. No symptoms or risks identified at this time. Initial Sepsis Screen: Does the patient meet any 2 criteria? RR > 20 per min. HR > 90 bpm. Does the patient have a suspected source of infection?. Risk Assessment: Do you want to hurt yourself or someone else? Patient reports no desire to harm self or others. Onset of symptoms was February 02, 2023. 22:37 Method Of Arrival: Wheelchair cm10 22:37 Acuity: JOSE CRUZ 2 cm10 Historical: - Allergies: 22:40 No Known Allergies; cm10 - PMHx: 22:40 diabetes mellitus; Hypertensive disorder; cm10 - PSHx: 22:40 Bipass; cm10 - Immunization history:: Adult Immunizations up to date. - Social history:: Smoking status: Patient denies any tobacco usage or history of. - Family history:: not pertinent. Screenin:30 [facility] ED Fall Risk Assessment (Adult) History of falling in the last 3 months, ha1 including since admission No falls in past 3 months (0 pts) Confusion or Disorientation No (0 pts) Intoxicated or Sedated No (0 pts) Impaired Gait No (0 pts) Mobility Assist Device Used Yes (1 pt) Altered Elimination No (0 pt) Score/Fall Risk Level 0 - 2 = Low Risk Oriented to surroundings, Maintained a safe environment, Educated pt \T\ family on fall prevention, incl call for assistance when getting out of bed, Hourly rounding (assess needs \T\ fall precautionary measures) done. 23:21 Abuse screen: Denies threats or abuse. Denies injuries from another. Nutritional ha1 screening: No deficits noted. Tuberculosis screening: No symptoms or risk factors identified. Assessment: 22:30 General: Appears uncomfortable, Behavior is calm, cooperative. Pain: Complains of pain ha1 in throat Pain does not radiate. Pain currently is 10 out of 10 on a pain scale. Quality of pain is described as burning, sharp. Neuro: Level of Consciousness is awake, alert, obeys commands, Oriented to person, place, time, situation. Cardiovascular: Patient's skin is warm and dry. Respiratory: Airway is patent Respiratory effort is even, unlabored, Respiratory pattern is regular, symmetrical. GI: Abdomen is round non-distended, Reports nausea. Musculoskeletal: Circulation, motion, and sensation intact. Range of motion: intact in all extremities. 23:26 Reassessment: CELL# [phone]. ha1 23:30 Reassessment: Patient and/or family updated on plan of care and expected duration. Pain ha1 level reassessed. Patient is alert, oriented x 3, equal unlabored respirations, skin warm/dry/pink. PAIN 5/10 Patient states symptoms have improved. 02/03 00:30 Reassessment: EYES CLOSED. Respiratory: Airway is patent Respiratory effort is even, ha1 unlabored, Respiratory pattern is regular, symmetrical. Vital Signs: 02/02 22:37 BP 150 / 68; Pulse 141; Resp 28 S; Temp 99.6; Pulse Ox 98% on R/A; Weight 80.74 kg (R); cm10 Height 5 ft. 9 in. (R); 23:21 BP 136 / 62; Pulse 120; Resp 19 S; Pulse Ox 97% on R/A; ha1 23:35 BP 132 / 58; Pulse 118; Resp 17 S; Temp 98.9(O); Pulse Ox 96% on R/A; ha1 02/03 00:00 BP 115 / 54; Pulse 119; Resp 16 S; Pulse Ox 96% on R/A; ha1 00:30 BP 108 / 55; Pulse 109; Resp 16 S; Pulse Ox 98% on 2 lpm NC; ha1 01:00 BP 121 / 63; Pulse 110; Resp 16 S; Pulse Ox 98% on 2 lpm NC; ha1 01:30 BP 111 / 62; Pulse 100; Resp 16; Pulse Ox 98% on 2 lpm NC; ha1 02/02 22:37 Body Mass Index 26.29 (80.74 kg, 175.26 cm) cm10 ED Course: 02/02 22:28 Patient arrived in ED. [id number] 22:30 Gerry Bundy MD is Attending Physician. sp4 22:30 Patient has correct armband on for positive identification. Bed in low position. Call ha1 light in reach. Side rails up X 1. Adult w/ patient. 22:39 Triage completed. cm10 22:40 Arm band placed on Patient placed in an exam room, on a stretcher, on youth nutritional monitor, cm10 on pulse oximetry. EKG completed in triage. Results shown to MD. 22:43 Hanna Elliott RN is Primary Nurse. ha1 22:50 Inserted saline lock: 22 gauge in right antecubital area, using aseptic technique. ha1 Blood collected. 02/03 00:32 XRAY Chest (1 view) In Process Unspecified. EDMS 01:28 Ajay Saldivar MD is Hospitalizing Provider. sp4 01:53 CT Chest Wo Con In Process Unspecified. EDMS 02:25 Inserted saline lock: 22 gauge in left antecubital area, using aseptic technique. Blood ha1 collected. 02:27 Blood Culture Adult (2) Sent. ha1 02:35 Provided Education on: NEED FOR ADMIT. ha1 02:50 No provider procedures requiring assistance completed. ha1 02:50 Patient admitted, IV remains in place. ha1 Administered Medications: 02/02 23:00 Drug: Acetaminophen-Codeine PO (300 mg-30 mg) 2 tabs PO once; RASS on ADMIN: Combtv4, ha1 Very Agttd3, Agttd2, Rstlss1, AlertClm0, Drwsy-1, Lt Sdtn-2, Mod Sdtn-3, Dp Sdtn-4, UnArsble-5 Route: PO; 23:30 Follow up: Response: No adverse reaction; Pain is decreased; RASS: Alert and Calm (0) ha1 23:00 Drug: MetoCLOPramide PO 10 mg PO once Route: PO; 1 23:42 Follow up: Response: No adverse reaction ha 23:00 Drug: NS 0.9% IV 1000 ml IV at 125 ml/hr continuous Route: IV; Rate: 125 ml/hr; Site: [facility] right antecubital; 23:41 Follow up: Response: No adverse reaction; IV Status: Infusion continued 23:00 Drug: Ibuprofen PO 400 mg PO once Route: PO; ha1 23:41 Follow up: Response: No adverse reaction; Temperature is decreased 1 23:30 Drug: Ondansetron IVP 4 mg IVP once; over 2 minutes Route: IVP; Site: right antecubital;[facility] 02/03 00:00 Follow up: Response: No adverse reaction [facility] 02/02 23:32 Drug: morphine IVP or IV 4 mg IVP once over 4 mins Route: IVP; Infused Over: 4 mins; [facility] Site: right antecubital; 02/03 00:00 Follow up: Response: No adverse reaction; Pain is decreased; RASS: Alert and Calm (0) [facility] 02/02 23:36 Drug: Dexamethasone IVP 10 mg IVP once; (not to exceed 40 mg) Route: IVP; Site: right [facility] antecubital; 02/03 00:00 Follow up: Response: No adverse reaction 1 00:14 Drug: Magnesium Sulfate IVPB 2 grams IVPB once over 2 hrs Route: IVPB; Infused Over: 2 ha1 hrs; Site: right antecubital; 02:00 Follow up: Response: No adverse reaction; IV Status: Completed infusion; IV Intake: [id number] 02:27 Drug: Rocephin - Rocephin (cefTRIAXone) IVPB 1 grams IVPB once over 30 mins; (mix in 50 ha1 mL NS) Route: IVPB; Infused Over: 30 mins; Site: right antecubital; 02:39 Follow up: Response: No adverse reaction; IV Status: Completed infusion; IV Intake: [id number] 02:27 Drug: Zithromax IVPB 500 mg IVPB once over 1 hrs; mix in 250 mL NS Route: IVPB; Infused ha1 Over: 1 hrs; Site: left antecubital; 02:50 Follow up: Response: No adverse reaction; IV Status: Infusion continued ha1 Medication: 02/02 23:24 VIS not applicable for this client. ha1 Intake: 02/03 02:00 IV: 50ml; Total: 50ml. ha1 02:39 IV: 50ml; Total: 100ml. ha1 Outcome: 01:29 Decision to Hospitalize by Provider. sp4 02:50 Admitted to ICU accompanied by tech, via wheelchair, room 8, with chart, Other PT. ha1 GOING TO ICU OVERFLOW. Report called to SARIKA CASTILLO 02:50 Condition: stable 02:50 Discharge instructions given to patient, Instructed on the need for admit, Demonstrated understanding of instructions, 02:54 Patient left the ED. ha1 Signatures: Dispatcher [employer] EDMS Colleen [id number] Hanna Elliott, RN RN ha1 Gerry Bundy MD MD sp4 Padmini Ring RN RN cm10 Corrections: (The following items were deleted from the chart) 02/02 22:40 22:37 Chief complaint: Patient states: unable to swallow onset today. Pt was diagnosed cm10 with COVID today and was given paxlovid. Pt also reports shortness of breath. cm10
[2023-02-03] MEDS ORDERED: HYDROCODONE/APAP 10/325 TAB PO PRN (01:37)
[2023-02-03] MEDS ORDERED: MORPHINE 2 MG/ML SYR IV PRN (01:37)
[2023-02-03] MEDS ORDERED: CEFTRIAXONE 1000 MG/VIAL ONE (02:23)
[2023-02-03] MEDS ORDERED: NA CHLORIDE 0.9% 250 ML ONE (02:24)
[2023-02-03] MEDS ORDERED: AZITHROMYCIN 500 MG INJ IVPB ONE (02:24)
[2023-02-03] MEDS ORDERED: NA CHLORIDE 0.9% 50 ML ONE (02:24)
[2023-02-03 03:22] VITALS: BMI 23.2
[2023-02-03] MEDS ORDERED: ACETAMINOPHEN 325 MG TABLET PO PRN (05:46)
[2023-02-03] MEDS ORDERED: NA CHLORIDE 0.9% 1,000 ML IV SCH ×2 (05:46→08:06)
[2023-02-03] MEDS ORDERED: ALBUTEROL 2.5 MG/3 ML NEB SOL NEB PRN (05:46)
[2023-02-03] MEDS ORDERED: ZOLPIDEM TARTRATE 5 MG TABLET PO PRN (05:46)
[2023-02-03] MEDS ORDERED: ONDANSETRON 4 MG/2 ML VIAL IV PRN (05:46)
[2023-02-03] MEDS ORDERED: INFLUENZA VACCINE (for 6+ mo) 0.5 ML DOSE IMVAC ONE (08:00)
[2023-02-03 08:09] LABS: Albumin 2.8 g/dL (3.4-5.0); Bilirubin Total 0.3 mg/dL (0.2-1.0); Magnesium 1.8 mg/dL (1.6-2.4); Potassium 4.9 mEq/L (3.5-5.1); Protein, Total 6.4 g/dL (6.4-8.2)
[2023-02-03] MEDS: INSULIN REGULAR (HUMAN) 100 UNIT/ML SQ SCH ×4 (08:29→21:44)
[2023-02-03] MEDS: BUDESONIDE 0.5 MG/2 ML NEB NEB SCH ×3 (09:08→20:00)
[2023-02-03] MEDS: dexAMETHasone 4 MG TAB PO SCH ×2 (09:24→21:19)
[2023-02-03] MEDS: NIRMATRELVIR/RITONAVIR TABLET PO SCH ×2 (09:24→21:21)
--- NOTE | 2023-02-03 12:21 | EKG ---
Test Date: 2023-02-02 Test Time: 22:41:37 Residential Installer: MEHDI MEASUREMENT RESULTS: Intervals: Rate: 130 WA: 192 QRSD: 88 QT: 290 QTc: 426 [place]: P: WA: 192 QRS: 42 T: 40 INTERPRETIVE STATEMENTS: Sinus tachycardia Cannot rule out Anterior infarct, age undetermined T wave abnormality, consider inferior ischemia Abnormal ECG Compared to ECG 03/22/2022 08:27:19 T-wave abnormality now present Possible ischemia now present Myocardial infarct finding still present Electronically Signed On 02-03-23 12:20:04 CDT by Danny Knowles
[2023-02-03] MEDS ORDERED: PHENOL 1.4% ORAL SPRAY 180ML MM PRN (13:22)
--- NOTE | 2023-02-03 14:45 | RAD REPORT ---
EXAM DESCRIPTION: CT - Thorax Wo Kali - 02/03/2023 6:03 am CLINICAL HISTORY: COVID pneumonia TECHNIQUE: Axial computed tomography images of the chest without intravenous contrast. Sagittal an d coronal reformatted images were created and reviewed. This CT exam was performed using one or mor e of the following dose reduction techniques: automated exposure control, adjustment of the mA and/ or kV according to patient size, and/or use of iterative reconstruction technique. COMPARISON: CT Chest dated 03/22/2022 FINDINGS: Lungs: Layering debris within the right mainstem bronchus. Right middle lobe mucus plu gging. Right lower lobe peribronchial thickening. Patchy right middle lobe opacities. Right low er lobe patchy and tree-in-bud opacities and consolidative changes. Pleural space: Bilateral calcified pleural plaques. Trace bilateral pleural effusions. No pneum othorax. Heart: The heart is mildly to moderately enlarged. Coronary artery calcification. No significan t pericardial effusion. Mediastinum: Small hiatal hernia. Bones/joints: Prior median sternotomy. Multilevel spondylosis. Remote left anterolateral 7th ri b fracture. No dislocation. Soft tissues: Unremarkable. Vasculature: Moderate atherosclerotic disease. Lymph nodes: Unremarkable. No enlarged lymph nodes. Liver: Hepatic parenchymal calcifications compatible with remote granulomatous organism exposure. Pancreas: Punctate pancreatic parenchymal calcifications compatible with chronic pancreatitis. IMPRESSION: 1. Right lower lobe and to a lesser extent right middle lobe infiltrates with endobron chial involvement. Right sided mucus plugging most pronounced in the right middle lobe. Aspiratio n not excluded. 2. Other findings as above. Electronically signed by: Pearl Avila MD 02/03/2023 2:36 AM CDT Due to temporary technical issues with the PACS/Fluency reporting system, reports are being signed by the in house radiologists without review as a courtesy to insure prompt reporting. The interpreting radiologist is fully responsible for the content of the report.
--- NOTE | 2023-02-03 14:55 | RAD REPORT ---
EXAM DESCRIPTION: RAD - Chest Single View - 02/03/2023 12:30 am CLINICAL HISTORY: CHEST PAIN TECHNIQUE: AP chest COMPARISON: Prior radiographs are not available for comparison FINDINGS: CHEST: Cardiac silhouette at the upper limits of normal. Status post median sternotomy. Pleural plaques bilaterally, larger on the right. Decreased lung volumes. No evidence of airspace consolidation or pleural effusions. Limited evaluation with patient in apical lordotic positioning. Follow-up PA and lateral radiographs would be helpful when clinically feasible. IMPRESSION: 1. Pleural plaques bilaterally, larger on the right. 2. Decreased lung volumes. No evidence of airspace consolidation or pleural effusions. 3. Limited evaluation with patient in apical lordotic positioning. Follow-up PA and lateral radiogr aphs would be helpful when clinically feasible. Electronically signed by: Gee Whittington MD 02/03/2023 1:07 AM CDT Due to temporary technical issues with the PACS/Fluency reporting system, reports are being signed by the in house radiologists without review as a courtesy to insure prompt reporting. The interpreting radiologist is fully responsible for the content of the report.
[2023-02-03] MEDS: METFORMIN HCL 500 MG TAB PO SCH (16:44)
[2023-02-03] MEDS ORDERED: GLIPIZIDE S.A. 5 MG TAB PO SCH (17:00)
--- NOTE | 2023-02-03 17:02 | P.HP ---
Certification for Inpatient Patient admitted to: Inpatient With expected LOS: >2 Midnights Practitioner: I am a practitioner with admitting privileges, knowledge of patient current condition, hospital course, and medical plan of care. Services: Services provided to patient in accordance with Admission requirements found in Title 42 Section 412.3 of the Code of Federal Regulations Patient History Date of Service: 02/03/23 Reason for admission: FEELS POORLY WITH COVID History of Present Illness: MR. MENDOSA WAS DIAGNOSED WITH COVID A DAY AGO, SENT HOME WITH PAXLOVID AND CAME BACK HE COULD NOT SWALLOW ANYTHING AND HAS A VERY PAINFUL THROAT. HE HAS COVID PNEUMONIA BUT NO SHORTNESS OF BREATH. Allergies No Known Allergies Allergy (Verified 02/03/23 03:17) Home medications list reviewed: Yes Home Medications: Losartan Potassium 50 mg PO DAILY 03/10/15 Metformin HCl [Glucophage] 1,000 mg PO BID 03/10/15 Metoprolol Succinate [Toprol Xl] 50 mg PO DAILY 03/10/15 Simvastatin 40 mg PO DAILY 03/10/15 Terazosin HCl [Hytrin*] 10 mg PO BEDTIME 03/10/15 Glimepiride 4 mg PO DAILY 02/03/23 - Past Medical/Surgical History Has patient received pneumonia vaccine in the past: Yes Diabetic: No -: htn -: niddm -: bph -: high cholesterol -: chest pain -: heart blockage -: right kidney surg - repair - Family History Father -: Cancer Mother -: Diabetes, Stroke - Social History Smoking Status: Never smoker Alcohol use: Yes CD- Drugs: No Caffeine use: Yes Place of Residence: Home Review of Systems 10-point ROS is otherwise unremarkable General: Weakness, Malaise Physical Examination - Vital Signs Temperature: 97.6 F Blood Pressure: 150/74 Pulse: 102 Respirations: 22 Pulse Ox (%): 94 - Physical Exam General: Mild distress HEENT: Atraumatic, PERRLA, Mucous membr. moist/pink, EOMI, Sclerae nonicteric Neck: Supple, 2+ carotid pulse no bruit, No LAD, Without JVD or thyroid abnormality Respiratory: Diminished, Crackles/rales (BASAL.) Cardiovascular: Regular rate/rhythm, Normal S1 S2 Gastrointestinal: Normal bowel sounds, No tenderness Musculoskeletal: No tenderness Integumentary: No rashes Neurological: Normal gait, Normal speech, Normal strength at 5/5 x4 extr, Normal tone, Normal affect Lymphatics: No axilla or inguinal lymphadenopathy - Studies Laboratory Data (last 24 hrs) 02/02/23 02/02/23 02/02/23 22:52 22:52 22:50 WBC 8.30 Hgb 13.1 L Hct 37.0 L Plt Count 166 PT 13.3 H INR 1.21 Sodium 128 L Potassium 4.3 BUN 19 H Creatinine 1.41 H Glucose 247 H Magnesium 0.8 L* Total Bilirubin 0.6 AST 11 L ALT 16 Alkaline Phosphatase 76 Assessment and Plan - Problems (Diagnosis) (1) Pneumonia due to COVID-19 virus Current Visit: Yes Status: Acute Plan: PAXLOIVID RESUMED ORAL STEROIDS BY DR. KAL CAZARES BUDESONIDE. PROGNOSIS GUARDED MAY GO HOME IN AM IF HE IS STRONG ENOUGH. (2) Diabetes Current Visit: Yes Status: Chronic Plan: ADD LANTUS FOR NOW GLUCOSE IS HIGH BEC OF STEROIDS. - Advance Directives Does patient have a Living Will: Yes Does patient have a Durable POA for Healthcare: Yes
[2023-02-03] MEDS ORDERED: FUROSEMIDE 20 MG/ 2ML VIAL IV ONE (17:44)
[2023-02-03] MEDS: ENOXAPARIN 40 MG/0.4 ML SQ SCH (18:07)
[2023-02-03] MEDS: TERAZOSIN HCL 5 MG CAP PO SCH (21:19)
[2023-02-03] MEDS: ATORVASTATIN 20 MG TAB PO SCH (21:19)
[2023-02-04 03:36] LABS: Magnesium 1.7 mg/dL (1.6-2.4); Potassium 4.8 mEq/L (3.5-5.1)
[2023-02-04] MEDS ORDERED: MAGNESIUM SULFATE 1 gm IVPB 1 GM/100 ML BAG IV ONE (05:03)
[2023-02-04] MEDS: BUDESONIDE 0.5 MG/2 ML NEB NEB SCH ×2 (08:50→20:00)
[2023-02-04] MEDS ORDERED: ISOSORBIDE MONO SR 60 MG TAB PO SCH (09:00)
[2023-02-04] MEDS ORDERED: HOME MED 1 EA UNK (Simvastatin [Simvastatin] 40 MG Tablet) PO SCH (09:00)
[2023-02-04] MEDS ORDERED: METOPROLOL SUCCINATE 200 MG PO SCH (09:00)
[2023-02-04] MEDS ORDERED: HOME MED 1 EA UNK (Glimepiride [Glimepiride] 4 MG Tablet) PO SCH (09:00)
[2023-02-04] MEDS: NIRMATRELVIR/RITONAVIR TABLET PO SCH ×2 (09:08→20:32)
[2023-02-04] MEDS: dexAMETHasone 4 MG TAB PO SCH (09:09)
[2023-02-04] MEDS: LOSARTAN POTASSIUM 50 MG TABLET PO SCH (09:09)
[2023-02-04] MEDS: METOPROLOL XL 50 MG TAB PO SCH (09:10)
[2023-02-04] MEDS: METFORMIN HCL 500 MG TAB PO SCH ×2 (09:10→16:56)
[2023-02-04] MEDS: GLIMEPIRIDE 2 MG TABLET PO SCH (09:10)
[2023-02-04] MEDS: INSULIN REGULAR (HUMAN) 100 UNIT/ML SQ SCH ×4 (09:11→20:33)
[2023-02-04] MEDS: INSULIN GLARGINE 100 UNIT/ML SQ SCH (09:11)
--- NOTE | 2023-02-04 10:00 | P.CNS ---
Date of Consult: 02/03/23 Reason for Consult: Coronavirus infection Chief Complaint: FEELS POORLY WITH COVID History of Present Illness: Patient is 82 years of age mated to the hospital complaining of difficulty swallowing and a fever this started on Monday just feeling bad and was di scharged home on Paxlovid Tylenol codeine came back again ending of throat pain and fever Allergies No Known Allergies Allergy (Verified 02/03/23 03:17) Home Medications: Losartan Potassium 50 mg PO DAILY 03/10/15 Metformin HCl [Glucophage] 1,000 mg PO BID 03/10/15 Metoprolol Succinate [Toprol Xl] 50 mg PO DAILY 03/10/15 Simvastatin 40 mg PO DAILY 03/10/15 Terazosin HCl [Hytrin*] 10 mg PO BEDTIME 03/10/15 Glimepiride 4 mg PO DAILY 02/03/23 - Past Medical/Surgical History Diabetic: No -: htn -: niddm -: bph -: high cholesterol -: chest pain -: heart blockage -: right kidney surg - repair - Family History Father Medical History: Cancer Mother Medical History: Diabetes, Stroke - Social History Smoking Status: Unknown if ever smoked Alcohol use: Yes CD- Drugs: No Caffeine use: Yes Place of Residence: Home Review of Systems General: Fever, Weakness Respiratory: Cough Physical Examination Temp Pulse Resp BP Pulse Ox 97.8 F 100 H 18 108/58 L 95 02/04/23 05:26 02/04/23 05:26 02/04/23 05:26 02/04/23 05:26 02/04/23 05:26 General: Alert, Oriented x3 Respiratory: Clear to auscultation bilaterally Cardiovascular: No edema, Normal S1 S2 Gastrointestinal: Normal bowel sounds, Soft and benign - Problems (1) Right lower lobe pneumonia Current Visit: Yes Status: Acute Plan: Patient is 82 years of age tested positive for coronavirus admitted with a sore throat difficulty swallowing presumed right lower lobe pneumonia positive for coronavirus infection 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 Ct RLL Pneumonia Qualifiers: Aspiration pneumonia type: unspecified (2) Renal failure Current Visit: Yes Status: Acute Plan: possible acute. IV fluids/ UA
[2023-02-04] MEDS ORDERED: CEFTRIAXONE 1,000 MG in NA CHLORIDE 0.9% 50 ML IVPB SCH (11:00)
[2023-02-04] MEDS ORDERED: NACHLORIDE 0.45% 1,000 ML IV SCH (11:00)
[2023-02-04] MEDS ORDERED: ALBUTEROL 2.5 MG/3 ML NEB SOL NEB PRN (12:00)
[2023-02-04] MEDS: MAGIC MOUTHWASH 180 ML BTL PO PRN ×2 (12:04→18:27)
--- NOTE | 2023-02-04 14:50 | P.PN ---
Subjective Date of Service: 02/04/23 Chief Complaint: SORE THROAT Subjective: Improving NAVJOT HAS ODYNOPHAGIA. HE HAS NO CHEST PAIN OR DYSPNEA. HE IS COVID POS AND HAS LOBAR PNEUMONIA ALSO Review of Systems 10-point ROS is otherwise unremarkable Physical Examination - Vital Signs Temperature: 97.5 F Blood Pressure: 118/77 Pulse: 88 Respirations: 22 Pulse Ox (%): 99 - Physical Exam General: Oriented x3, Mild distress HEENT: Atraumatic, PERRLA, EOMI Neck: Supple, JVD not distended Respiratory: Clear to auscultation bilaterally, Normal air movement Cardiovascular: Regular rate/rhythm, Normal S1 S2 Gastrointestinal: Normal bowel sounds, No tenderness Musculoskeletal: No tenderness Integumentary: No rashes Neurological: Normal speech, Normal tone, Normal affect Lymphatics: No axilla or inguinal lymphadenopathy - Studies Medications List Reviewed: Yes Assessment And Plan - Current Problems (Diagnosis) (1) Pneumonia due to COVID-19 virus Current Visit: Yes Status: Acute Plan: PAXLOIVID RESUMED ORAL STEROIDS BY DR. BOWDEN NEBS BUDESONIDE. PROGNOSIS GUARDED MAY GO HOME IN AM IF HE IS STRONG ENOUGH. (2) Diabetes Current Visit: Yes Status: Chronic Plan: ADD LANTUS FOR NOW GLUCOSE IS HIGH BEC OF STEROIDS. (3) Bacterial pneumonia Current Visit: Yes Status: Acute Plan: HE MAY HAVE SUPERADDED INFECTION. ADD LEVAQUIN CHECK PROCALCITONIN
[2023-02-04] MEDS: NACHLORIDE 0.45% 1,000 ML IV SCH (14:59)
[2023-02-04] MEDS: ENOXAPARIN 40 MG/0.4 ML SQ SCH (16:55)
[2023-02-04] MEDS: Levofloxacin500mg IV 500 MG/100 ML BAG IV SCH (16:55)
[2023-02-04] MEDS: ATORVASTATIN 20 MG TAB PO SCH (20:33)
[2023-02-04] MEDS: TERAZOSIN HCL 5 MG CAP PO SCH (20:33)
[2023-02-05 03:09] LABS: Absolute Lymphocytes (CBC) 0.5 K/uL (0.7-4.9); Hematocrit 32.4 % (39.6-49.0); Lymphocytes % 6.7 % (15.3-44.8); MCV 90.9 fL (80-100); MPV 8.3 fL (7.6-11.3); Platelets 176 thou/uL (152-406); RBC Red Blood Cell Count 3.56 M/uL (4.33-5.43)
[2023-02-05 03:22] LABS: Potassium 4.8 mEq/L (3.5-5.1)
[2023-02-05] MEDS: INSULIN REGULAR (HUMAN) 100 UNIT/ML SQ SCH ×3 (07:30→16:30)
[2023-02-05] MEDS: GLIMEPIRIDE 2 MG TABLET PO SCH (07:54)
[2023-02-05] MEDS: LOSARTAN POTASSIUM 50 MG TABLET PO SCH (07:54)
[2023-02-05] MEDS: INSULIN GLARGINE 100 UNIT/ML SQ SCH (07:54)
[2023-02-05] MEDS: METOPROLOL XL 50 MG TAB PO SCH (07:54)
[2023-02-05] MEDS: METFORMIN HCL 500 MG TAB PO SCH ×2 (07:54→16:47)
[2023-02-05] MEDS: BUDESONIDE 0.5 MG/2 ML NEB NEB SCH (08:50)
[2023-02-05] MEDS: NACHLORIDE 0.45% 1,000 ML IV SCH (08:58)
[2023-02-05] MEDS: NIRMATRELVIR/RITONAVIR TABLET PO SCH (08:58)
[2023-02-05 09:45] VITALS: O2SAT 92
[2023-02-05] MEDS: Levofloxacin500mg IV 500 MG/100 ML BAG IV SCH (13:57)
[2023-02-05 16:20] VITALS: BP 117/61; TEMP 97.2
[2023-02-05] MEDS: ENOXAPARIN 40 MG/0.4 ML SQ SCH (16:48)
--- NOTE | 2023-02-05 21:18 | P.PN ---
Subjective Date of Service: 02/05/23 Chief Complaint: SORE THROAT Subjective: Improving NAVJOT HAS ODYNOPHAGIA. HE HAS NO CHEST PAIN OR DYSPNEA. HE IS COVID POS AND HAS LOBAR PNEUMONIA ALSO NAVJOT HAS DONE VERY WELL WITH MMW, ORAL LEVAQUIN AND HE IS ABLE TO GO HOME. HE HAS COURSE OF PAXLOVID AT HOME. Physical Examination - Vital Signs Temperature: 97.2 F Blood Pressure: 117/61 Pulse: 85 Respirations: 16 Pulse Ox (%): 92 - Studies Medications List Reviewed: Yes Assessment And Plan - Current Problems (Diagnosis) (1) Pneumonia due to COVID-19 virus Status: Acute Plan: PAXLOIVID RESUMED ORAL STEROIDS BY DR. KAL CAZARES BUDESONIDE. PROGNOSIS GUARDED MAY GO HOME IN AM IF HE IS STRONG ENOUGH. (2) Diabetes Status: Chronic Plan: ADD LANTUS FOR NOW GLUCOSE IS HIGH BEC OF STEROIDS. (3) Bacterial pneumonia Status: Acute Plan: HE MAY HAVE SUPERADDED INFECTION. ADD LEVAQUIN CHECK PROCALCITONIN
== END 2023-02-05 18:01 | disposition home or self-care (01) | DRG 177 ==
LOC: ER 22:24 → 3RD-ICU 02-03 02:16 → 2ND 02-03 21:52
PROVIDERS: ADMIT Internal Medicine; ATTEND Internal Medicine
DX: U07.1 COVID-19 (principal); J12.82 Pneumonia due to coronavirus disease 2019; J15.9 Unspecified bacterial pneumonia; E87.1 Hypo-osmolality and hyponatremia; N17.9 Acute kidney failure, unspecified; E83.42 Hypomagnesemia; E86.9 Volume depletion, unspecified; I10 Essential (primary) hypertension; E11.9 Type 2 diabetes mellitus without complications; E78.00 Pure hypercholesterolemia, unspecified; N40.0 Benign prostatic hyperplasia without lower urinary tract symptoms; R13.10 Dysphagia, unspecified; Z23 Encounter for immunization; Z95.1 Presence of aortocoronary bypass graft; Z79.84 Long term (current) use of oral hypoglycemic drugs; Z79.899 Other long term (current) drug therapy
CPT/HCPCS: 36415; 71045; 71250; 80048; 80053; 80076; 82947; 83735; 83880; 84145; 84484; 85025; 85610; 86140; 87040; 87070; 87081; 87635; 87804; 90471; 93005; 96372; 99284; 99285; J0696; J1100; J1650; J1815; J1940; J2405; J3475; J7030; J7050; J7626; J8540; Q2035

== ENCOUNTER 2023-07-28 21:27 | Emergency (ER) | payer OTHER ==
--- OUTSIDE RECORDS SUMMARY | 2023-07-28 21:30 | XMS REPORT | Continuity of Care Document ---
Author Name Unknown Address [address] [place] [address] [facility] thconnect Address 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 Phone Ajay Saldivar Attending Clinician Unavailable Sandra Tiwari Attending Clinician Unavailable Payers Payer Name Policy Type Policy Number Effective Date Expirati on Date Source [employer] MEDICARE 53 [id number] 2021 00:00:00 [facility] Problems Condition Name Condition Details Condition Category Status Onset Date Resolution Date Last Treatment Date Treating Clinician Comments Source [id number] Gastroesop hageal reflux disease without esophagiti s Problem Active [facility] [id number] Stage 3a chronic kidney disease Problem Active [facility] [id number] 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 Problem Active [facility] [id number] Mixed hyperlipid emia Problem Active [facility] [id number] Essential (primary) hypertensi on Problem Active [facility] [id number] Benign prostatic hyperplasi a with lower urinary tract symptoms Problem Active [facility] Hyperglyce be due to type 2 diabetes mellitus Type 2 diabetes mellitus with hyperglyce be, without long-term current use of insulin Problem Active [facility] Social History Social Habit Start Date Stop Date Quantity Comments Source History of Tobacco Use [facility] Sex Assigned At [facility] Smoking Status Start Date Stop Date Source Never Smoker [facility] Medications Ordered Medication Name Filled Medication Name Start Date Stop Date Current Medication? Ordering Clinician Indication Dosage Frequency Signature (SIG) Comments Components Source Bupivicaine [place] Bupivicaine [place] 5- 00:00: 00 No 5mL [facility] Kenalog (Triamcinol one) Kenalog (Triamcinol one) 5- 00:00: 00 No 1mL [facility] Blood Glucose Test - Blood Glucose Test - - 00:00: 00 No QD Blood Glucose Test - Blood Glucose Test - Blood Glucose Test - 0 - 00:00: 00 No QD Blood Glucose Test - Blood Glucose Test - Blood Glucose Test - 11-19 00:00: 00 No QD Blood Glucose Test - Blood Glucose Test - Blood Glucose Test - 11-19 00:00: 00 No QD Blood Glucose Test - Albuterol Sulfate HFA 108 (90 Base) MCG/ACT Albuterol Sulfate HFA 108 (90 Base) MCG/ACT 3- 00:00: 00 No 1{puff_ as_need ed} 6xD Albuterol Sulfate HFA 108 (90 Base) MCG/ACT metFORMIN HCl 1000 MG metFORMIN HCl 1000 MG No BID metFORMIN HCl 1000 MG Terazosin HCl 10 MG Terazosin HCl 10 MG No Terazosin HCl 10 MG Albuterol Sulfate HFA 108 (90 Base) MCG/ACT Albuterol Sulfate HFA 108 (90 Base) MCG/ACT No 1{puff_ as_need ed} 6xD Albuterol Sulfate HFA 108 (90 Base) MCG/ACT Simvastatin 40 MG Simvastatin 40 MG No Simvastati n 40 MG Losartan Potassium 50 MG Losartan Potassium 50 MG No 1{table t} QD Losartan Potassium 50 MG Lisinopril 5 MG Lisinopril 5 MG No Lisinopril 5 MG Terazosin HCl 10 MG Terazosin HCl 10 MG No 1{capsu le_at_b edtime} QD Terazosin HCl 10 MG Simvastatin 40 MG Simvastatin 40 MG No 1{table t_in_th e_eveni ng} QD Simvastati n 40 MG Metoprolol Tartrate 50 MG Metoprolol Tartrate 50 MG No 1{table t_with_ food} BID Metoprolol Tartrate 50 MG glipiZIDE 10 MG glipiZIDE 10 MG No BID glipiZIDE 10 MG Lisinopril 5 MG Lisinopril 5 MG No Lisinopril 5 MG Pantoprazol e Sodium 40 MG Pantoprazol e Sodium 40 MG No 1{table t} QD Pantoprazo le Sodium 40 MG Metformin HCl 1000 MG Metformin HCl 1000 MG No 1{table t_with_ meals} BID Metformin HCl 1000 MG Metoprolol Tartrate 50 MG Metoprolol Tartrate 50 MG No Metoprolol Tartrate 50 MG Lisinopril 5 MG Lisinopril 5 MG No Lisinopril 5 MG Terazosin HCl 10 MG Terazosin HCl 10 MG No 1{capsu le_at_b edtime} QD Terazosin HCl 10 MG glipiZIDE 10 MG glipiZIDE 10 MG No glipiZIDE 10 MG Lisinopril 5 MG Lisinopril 5 MG No Lisinopril 5 MG Simvastatin 40 MG Simvastatin 40 MG No Simvastati n 40 MG metFORMIN HCl 1000 MG metFORMIN HCl 1000 MG No metFORMIN HCl 1000 MG Albuterol Sulfate HFA 108 (90 Base) MCG/ACT Albuterol Sulfate HFA 108 (90 Base) MCG/ACT No 1{puff_ as_need ed} 6xD Albuterol Sulfate HFA 108 (90 Base) MCG/ACT Pantoprazol e Sodium 40 MG Pantoprazol e Sodium 40 MG No 1{table t} QD Pantoprazo le Sodium 40 MG Trulicity 0.75 MG/0.5ML Trulicity 0.75 MG/0.5ML No Trulicity 0.75 MG/0.5ML metFORMIN HCl 1000 MG metFORMIN HCl 1000 MG No BID metFORMIN HCl 1000 MG glipiZIDE 10 MG glipiZIDE 10 MG No QD glipiZIDE 10 MG Albuterol Sulfate HFA 108 (90 Base) MCG/ACT Albuterol Sulfate HFA 108 (90 Base) MCG/ACT No 1{puff_ as_need ed} 6xD Albuterol Sulfate HFA 108 (90 Base) MCG/ACT Fluorouraci l 5 % Fluorouraci l 5 % No 1{appli cation} BID Fluorourac il 5 % Simvastatin 40 MG Simvastatin 40 MG No Simvastati n 40 MG Metoprolol Tartrate 50 MG Metoprolol Tartrate 50 MG No Metoprolol Tartrate 50 MG Lisinopril 5 MG Lisinopril 5 MG No QD Lisinopril 5 MG Terazosin HCl 10 MG Terazosin HCl 10 MG No Terazosin HCl 10 MG Lisinopril 5 MG Lisinopril 5 MG No Lisinopril 5 MG Pantoprazol e Sodium 40 MG Pantoprazol e Sodium 40 MG No 1{table t} QD Pantoprazo le Sodium 40 MG metFORMIN HCl 1000 MG metFORMIN HCl 1000 MG No BID metFORMIN HCl 1000 MG glipiZIDE 10 MG glipiZIDE 10 MG No QD glipiZIDE 10 MG Albuterol Sulfate HFA 108 (90 Base) MCG/ACT Albuterol Sulfate HFA 108 (90 Base) MCG/ACT No 1{puff_ as_need ed} 6xD Albuterol Sulfate HFA 108 (90 Base) MCG/ACT Fluorouraci l 5 % Fluorouraci l 5 % No 1{appli cation} BID Fluorourac il 5 % Simvastatin 40 MG Simvastatin 40 MG No Simvastati n 40 MG Metoprolol Tartrate 50 MG Metoprolol Tartrate 50 MG No Metoprolol Tartrate 50 MG Lisinopril 5 MG Lisinopril 5 MG No QD Lisinopril 5 MG Terazosin HCl 10 MG Terazosin HCl 10 MG No Terazosin HCl 10 MG Lisinopril 5 MG Lisinopril 5 MG No Lisinopril 5 MG Pantoprazol e Sodium 40 MG Pantoprazol e Sodium 40 MG No 1{table t} QD Pantoprazo le Sodium 40 MG glipiZIDE 10 MG glipiZIDE 10 MG No QD glipiZIDE 10 MG Fluorouraci l 5 % Fluorouraci l 5 % No 1{appli cation} BID Fluorourac il 5 % Terazosin HCl 10 MG Terazosin HCl 10 MG No Terazosin HCl 10 MG Albuterol Sulfate HFA 108 (90 Base) MCG/ACT Albuterol Sulfate HFA 108 (90 Base) MCG/ACT No 1{puff_ as_need ed} 6xD Albuterol Sulfate HFA 108 (90 Base) MCG/ACT Lisinopril 5 MG Lisinopril 5 MG No QD Lisinopril 5 MG Metoprolol Tartrate 50 MG Metoprolol Tartrate 50 MG No Metoprolol Tartrate 50 MG metFORMIN HCl 1000 MG metFORMIN HCl 1000 MG No BID metFORMIN HCl 1000 MG Lisinopril 5 MG Lisinopril 5 MG No Lisinopril 5 MG Simvastatin 40 MG Simvastatin 40 MG No Simvastati n 40 MG Pantoprazol e Sodium 40 MG Pantoprazol e Sodium 40 MG No 1{table t} QD Pantoprazo le Sodium 40 MG glipiZIDE 10 MG glipiZIDE 10 MG No QD glipiZIDE 10 MG Fluorouraci l 5 % Fluorouraci l 5 % No 1{appli cation} BID Fluorourac il 5 % Terazosin HCl 10 MG Terazosin HCl 10 MG No Terazosin HCl 10 MG Albuterol Sulfate HFA 108 (90 Base) MCG/ACT Albuterol Sulfate HFA 108 (90 Base) MCG/ACT No 1{puff_ as_need ed} 6xD Albuterol Sulfate HFA 108 (90 Base) MCG/ACT Lisinopril 5 MG Lisinopril 5 MG No QD Lisinopril 5 MG Metoprolol Tartrate 50 MG Metoprolol Tartrate 50 MG No Metoprolol Tartrate 50 MG metFORMIN HCl 1000 MG metFORMIN HCl 1000 MG No BID metFORMIN HCl 1000 MG Lisinopril 5 MG Lisinopril 5 MG No Lisinopril 5 MG Simvastatin 40 MG Simvastatin 40 MG No Simvastati n 40 MG Pantoprazol e Sodium 40 MG Pantoprazol e Sodium 40 MG No 1{table t} QD Pantoprazo le Sodium 40 MG Pantoprazol e Sodium 40 MG Pantoprazol e Sodium 40 MG No 1{table t} QD Pantoprazo le Sodium 40 MG Metoprolol Succinate Metoprolol Succinate No Metoprolol Succinate Simvastatin 40 MG Simvastatin 40 MG No Simvastati n 40 MG Lisinopril 5 MG Lisinopril 5 MG No QD Lisinopril 5 MG Metoprolol Tartrate 50 MG Metoprolol Tartrate 50 MG No Metoprolol Tartrate 50 MG Celecoxib Celecoxib No Celecoxib Fluorouraci l 5 % Fluorouraci l 5 % No 1{appli cation} BID Fluorourac il 5 % Metoprolol Tartrate 50 MG Metoprolol Tartrate 50 MG No Metoprolol Tartrate 50 MG Glimepiride 4 MG Glimepiride 4 MG No 1{table t_with_ breakfa st_or_t he_firs t_main_ meal_of _the_da y} QD Glimepirid e 4 MG glipiZIDE 10 MG glipiZIDE 10 MG No QD glipiZIDE 10 MG Terazosin HCl 10 MG Terazosin HCl 10 MG No Terazosin HCl 10 MG Blood Glucose Test - Blood Glucose Test - No QD Blood Glucose Test - Trulicity 0.75 MG/0.5ML Trulicity 0.75 MG/0.5ML 09-27 00:00 :00 No Trulicity 0.75 MG/0.5ML Vital Signs Vital Name Observation Time Observation Value Comments S ource height 2021-11-23 14:30:00 70 [in_i] Commo n [facility] weight 2021-11-23 14:30:00 179.9 [lb_av] Co mmon [facility] temperature 2021-11-23 14:30:00 97.1 [degF] Com [facility] bmi 2021-11-23 14:30:00 25.81 kg/m2 Comm on [facility] blood pressure systolic 2021-11-23 14:30:00 138 mm[Hg] Common [facility] blood pressure diastolic 2021-11-23 14:30:00 76 mm[Hg] Common [facility] height 2021-11-19 15:20:00 70 [in_i] Commo n [facility] weight 2021-11-19 15:20:00 178 [lb_av] Comm on [facility] temperature 2021-11-19 15:20:00 97.8 [degF] Com [facility] bmi 2021-11-19 15:20:00 25.54 kg/m2 Comm on [facility] oximetry 2021-11-19 15:20:00 96 % Commo n [facility] respiratory rate 2021-11-19 15:20:00 16 /min Common [facility] blood pressure systolic 2021-11-19 15:20:00 128 mm[Hg] [facility] blood pressure diastolic 2021-11-19 15:20:00 72 mm[facility]Hg[facility] height 2021-11-19 15:40:00 70 [in_i] Commo n [facility] weight 2021-11-19 15:40:00 178 [lb_av] Comm on [facility] temperature 2021-11-19 15:40:00 97.8 [degF] Com mon [facility] bmi 2021-11-19 15:40:00 25.54 kg/m2 Comm on [facility] oximetry 2021-11-19 15:40:00 96 % Commo n [facility] respiratory rate 2021-11-19 15:40:00 16 /min [facility] blood pressure systolic 2021-11-19 15:40:00 128 mm[Hg] [facility] blood pressure diastolic 2021-11-19 15:40:00 72 mm[Hg] [facility] height 2021-06-29 14:40:00 70 [in_i] Commo n [facility] weight 2021-06-29 14:40:00 180.2 [lb_av] Co mmon [facility] temperature 2021-06-29 14:40:00 98.2 [degF] Com mon [facility] bmi 2021-06-29 14:40:00 25.85 kg/m2 Comm on [facility] oximetry 2021-06-29 14:40:00 98 % Commo n [facility] respiratory rate 2021-06-29 14:40:00 16 /min [facility] blood pressure systolic 2021-06-29 14:40:00 139 mm[Hg] [facility] blood pressure diastolic 2021-06-29 14:40:00 64 mm[Hg] [facility] Encounters Start Date/Time End Date/Time Encounter Type Admission Type Attending [facility] Facility Care Department Encounter ID Source 2023-02-22 09:25:00 Outpatient Ajay Saldivar [facility] [id number] [facility] 2022-09-09 10:34:01 Outpatient Sandra Tiwari [facility] [id number] [facility] 2022-06-06 08:22:01 Outpatient Sandra Tiwari [facility] [id number] [facility] 2022-01-13 08:03:01 Outpatient TiwariMarco A josephi [facility] [id number] [facility] 2021-11-17 10:30:02 Outpatient Sandra Tiwari [facility] [id number] [facility] 2021-10-20 13:40:02 Outpatient Marco A Tiwarii [facility] [id number] [facility] 2021-10-15 14:04:03 Outpatient TiwariMarco A griffithi [facility] [id number] [facility] 2021-10-14 10:30:01 Outpatient Sandra Tiwari [facility] [id number] [facility] 2021-10-06 09:59:03 Outpatient TiwariMarco Ai [facility] [id number] [facility] 2021-07-01 08:41:04 Outpatient TiwariMarco Ai [facility] [id number] [facility] 2021-06-29 14:19:02 Outpatient TiwariSandra [facility] [id number] [facility] 2022-08-26 00:00:00 2022-08-26 00:00:00 (TEL) [facility] [id number] [facility] 2021-12-22 00:00:00 2021-12-22 00:00:00 (TEL) [facility] [id number] [facility] 2021-11-23 00:00:00 2021-11-23 00:00:00 OFFICE VISIT NEW PT LEVEL 3 [facility] [id number] [facility] 2021-11-19 00:00:00 2021-11-19 00:00:00 (YAN ENG) Medicare Wellness [facility] [id number] [facility] 2021-11-19 00:00:00 2021-11-19 00:00:00 OFFICE VISIT ESTAB PT LEVEL 4 [facility] [id number] [facility] 2021-10-18 00:00:00 2021-10-18 00:00:00 (TEL) [facility] [id number] [facility] 2021-06-29 00:00:00 2021-06-29 00:00:00 OFFICE VISIT ESTAB PT LEVEL 4 [facility] [id number] [facility] Results Test Description Test Time Test Comments Results Result Co mments Source
[2023-07-28] MEDS ORDERED: ONDANSETRON 4 MG/2 ML VIAL ONE (21:44)
[2023-07-28] MEDS ORDERED: MORPHINE 4 MG/ML SYR ONE (21:45)
[2023-07-28] MEDS ORDERED: TENECTEPLASE 50 MG/10 ML VIAL IV ONE (21:45)
--- NOTE | 2023-07-28 21:51 | ER ---
Nurse's Notes [facility] Name: Bon Das Age: 82 yrs Sex: Male : 1940 Arrival Date: 07/28/2023 Time: 21:27 Bed 5 Private MD: Diagnosis: ST elevation (STEMI) myocardial infarction involving other sites Presentation: 07/27 21:35 Chief complaint: Patient states: substernal burning chest pain of 9,onset 1 hour BRIM ROUNDER pf1 while sitting in a chair. 21:35 Coronavirus screen: Vaccine status: Client denies travel out of the [place] in the last 14 pf1 days. At this time, the client does not indicate any symptoms associated with coronavirus-19. Ebola Screen: Patient negative for fever greater than or equal to 101.5 degrees Fahrenheit, and additional compatible Ebola Virus Disease symptoms. Initial Sepsis Screen: Does the patient meet any 2 criteria? HR > 90 bpm. No. Patient's initial sepsis screen is negative. Does the patient have a suspected source of infection? No. Patient's initial sepsis screen is negative. Risk Assessment: Do you want to hurt yourself or someone else? Patient reports no desire to harm self or others. Onset of symptoms was July 28, 2023. 21:35 Method Of Arrival: Wheelchair pf1 21:35 Acuity: JOSE CRUZ 2 pf1 Triage Assessment: 21:35 General: Appears uncomfortable, Behavior is calm, cooperative. Pain: Complains of pain rv in chest. Neuro: Level of Consciousness is awake, alert, obeys commands, Oriented to person, place, time, situation. Cardiovascular: Capillary refill < 3 seconds Patient's skin is warm and dry. Chest pain radiates neck. Respiratory: Airway is patent Respiratory effort is even, unlabored. GI: No signs and/or symptoms were reported involving the gastrointestinal system. : No signs and/or symptoms were reported regarding the genitourinary system. Derm: Skin is intact. 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 - Social history:: Smoking status: Patient denies any tobacco usage or history of. Screenin:35 [facility] ED Fall Risk Assessment (Adult) History of falling in the last 3 months, rv including since admission No falls in past 3 months (0 pts) Score/Fall Risk Level 0 - 2 = Low Risk Oriented to surroundings, Maintained a safe environment, Educated pt \T\ family on fall prevention, incl call for assistance when getting out of bed, Assessed \T\ reinforced patient's understanding of fall precautions. 21:35 Abuse screen: Denies threats or abuse. Denies injuries from another. Nutritional rv screening: No deficits noted. Tuberculosis screening: No symptoms or risk factors identified. Assessment: 22:30 Reassessment: [facility]. rv Vital Signs: 21:35 BP 157 / 76; Pulse 105; Resp 19; Temp 98.8; Pulse Ox 99% on R/A; Weight 79.38 kg; pf1 Height 5 ft. 9 in. ; Pain 9/10; 21:43 Weight 79.83 kg; rv 21:35 Body Mass Index 25.84 (79.83 kg, 175.26 cm) pf1 21:35 Pain Scale: Adult pf1 ED Course: 21:35 Patient arrived in ED. pf1 21:35 Jose Sena MD is Attending Physician. rt 21:35 No provider procedures requiring assistance completed. rv 21:35 Arm band placed on right wrist. rv 21:35 Patient has correct armband on for positive identification. Client placed on continuous rv cardiac and pulse oximetry monitoring. NIBP monitoring applied. shelter monitor on. 21:41 Contacted [facility] [place] to initiate transfer. ty 21:48 Basic Metabolic Panel Sent. cm10 21:48 CBC with Diff Sent. cm10 21:48 LFT's Sent. cm10 21:48 Magnesium Sent. cm10 21:48 PT-INR Sent. cm10 21:48 Troponin HS Sent. cm10 21:49 Initial lab(s) drawn, by la, sent to lab. Inserted saline lock: 18 gauge in right cm10 forearm, using aseptic technique. Blood collected. 21:49 Inserted saline lock: 20 gauge in left forearm, using aseptic technique. cm10 21:51 Triage completed. pf1 21:55 Init[address] Transfer with [facility] for patient transfer. ty 21:58 XRAY Chest (1 view) In Process Unspecified. EDMS 22:12 Patient acceptance to [facility]. ty 22:34 Patient transferred, IV remains in place. rv Administered Medications: 21:50 Drug: morphine IVP or IV 4 mg IVP once over 4 mins Route: IVP; Infused Over: 4 mins; rv Site: right forearm; 22:37 Follow up: Response: No adverse reaction; Marked relief of symptoms cm10 21:50 Drug: Ondansetron IVP 4 mg IVP once; over 2 minutes Route: IVP; Site: right forearm; rv 22:37 Follow up: Response: No adverse reaction; Marked relief of symptoms cm10 21:50 Drug: Tenecteplase IV 45 mg IV at calculated rate once {Co-Signature: cm10 (ke Ring RN).} Route: IV; Rate: calculated rate; Site: right forearm; 22:36 Follow up: Response: No adverse reaction; IV Status: Completed infusion cm10 22:12 Drug: Heparin ([place]-Bolus No thrombolytic) - HEParin IVP 60 units/kg IVP once; Max 5000 cm10 units {Co-Signature: ke (Babatunde Jones RN).} Route: IVP; Site: right femoral; 22:36 Follow up: Response: Medication administered at discharge. cm10 22:13 Drug: Clopidogrel PO 75 mg PO once Route: PO; rv 22:36 Follow up: Response: Medication administered at discharge. cm10 22:13 Drug: Heparin ([place] Drip) 12 units/kg/[place] - ([place] [address] units, D5W IV 500 ml) IV at cm10 calculated rate Per protocol; Max initial rate 1000 units/hr {Co-Signature: ke (Babatunde Jones RN).} Route: IV; Rate: calculated rate; Site: right forearm; 22:36 Follow up: IV Status: Infusion continued upon transfer cm10 22:25 Drug: Magnesium Sulfate IVPB 2 grams IVPB once over 2 hrs Route: IVPB; Infused Over: 2 cm10 hrs; Site: right forearm; 22:34 Follow up: IV Status: Infusion continued upon transfer rv Medication: 22:34 VIS not applicable for this client. rv Outcome: 21:51 ER care complete, transfer ordered by . rt 22:34 Transferred by helicopter to [facility], Transfer form completed. rv X-rays sent w/ patient. 22:34 Condition: stable 22:34 Instructed on the need for transfer, 22:37 Patient left the ED. rv Signatures: Dispatcher [employer] Babatunde Cedeno, SARIKA RN rv Jose Sena MD MD rt Bailey De La Garza RN RN pf1 Padmini Ring RN RN cm10 Saad Cardoso Clarissa RN cm10 Babatunde Jones RN rv Corrections: (The following items were deleted from the chart) :33 21:35 PSHx: Bipass; rv rv
--- NOTE | 2023-07-28 21:51 | EDPHYS ---
Physician Documentation [facility] Name: Bon Das Age: 82 yrs Sex: Male : 1940 Arrival Date: 07/28/2023 Time: 21:27 Bed 5 Private MD: ED Physician Jose Sena HPI: 07/27 21:47 This 82 yrs old Male presents to ER via Unassigned with complaints of chest pain. rt 21:47 Patient presents to the ED with a sudden onset of chest pain at rest for about 1 hour rt prior to arrival. Radiates to the jaw, left arm. Similar in character to when he had a triple bypass surgery was 10 years ago. Denies other acute complaints this time, symptoms are severe in severity, no other aggravating relieving factors.. 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 - Social history:: Smoking status: Patient denies any tobacco usage or history of. ROS: 21:47 Constitutional: Negative for fever, chills, and weight loss, Respiratory: Negative for rt shortness of breath, cough, wheezing, and pleuritic chest pain, Abdomen/GI: Negative for abdominal pain, nausea, vomiting, diarrhea, and constipation, MS/Extremity: Negative for injury and deformity, Skin: Negative for injury, rash, and discoloration, Neuro: Negative for headache, weakness, numbness, tingling, and seizure, Psych: Negative for depression, anxiety, suicide ideation, homicidal ideation, and hallucinations, 21:47 Cardiovascular: Positive for chest pain, Negative for edema, Exam: 21:47 Constitutional: This is a well developed, well nourished patient who is awake, alert, rt and in no acute distress. Head/Face: Normocephalic, atraumatic. Chest/axilla: Normal chest wall appearance and motion. Nontender with no deformity. No lesions are appreciated. Respiratory: Lungs have equal breath sounds bilaterally, clear to auscultation and percussion. No rales, rhonchi or wheezes noted. No increased work of breathing, no retractions or nasal flaring. Abdomen/GI: Soft, non-tender, with normal bowel sounds. No distension or tympany. No guarding or rebound. No evidence of tenderness throughout. Skin: Warm, dry with normal turgor. Normal color with no rashes, no lesions, and no evidence of cellulitis. MS/ Extremity: Pulses equal, no cyanosis. Neurovascular intact. Full, normal range of motion. Neuro: Awake and alert, GCS 15, oriented to person, place, time, and situation. Cranial nerves II-XII grossly intact. Motor strength 5/5 in all extremities. Sensory grossly intact. Cerebellar exam normal. Normal gait. 21:47 Constitutional: The patient appears alert, in obvious distress, 21:49 ECG was reviewed by the Attending Physician. rt 21:49 ECG was reviewed by the Attending Physician. rt Vital Signs: 21:35 BP 157 / 76; Pulse 105; Resp 19; Temp 98.8; Pulse Ox 99% on R/A; Weight 79.38 kg; pf1 Height 5 ft. 9 in. ; Pain 9/10; 21:43 Weight 79.83 kg; rv 21:35 Body Mass Index 25.84 (79.83 kg, 175.26 cm) pf1 21:35 Pain Scale: Adult pf1 MDM: 21:35 Patient medically screened. rt 07/28 03:32 Differential Diagnosis STEMI. Data reviewed: vital signs, nurses notes, lab test rt result(s), EKG, radiologic studies. Consideration of Admission/Observation Patient requires transfer for cardiac catheterization. Management of patient was discussed with the following: Media Relations Associate: Discussed with accepting warehouse engineer. I considered the following discharge prescriptions or medication management in the emergency department Medications were administered in the Emergency Department. See MAR. Independent interpretation of the following test(s) in the Emergency Department X-Ray: My interpretation is No consolidation seen on interpretation of x-ray images. Care significantly affected by the following chronic conditions: Coronary artery disease. Counseling: I had a detailed discussion with the patient and/or guardian regarding the historical points, exam findings, and any diagnostic results supporting the discharge/admit diagnosis, lab results, radiology results, the need to transfer to another facility. Response to treatment: the patient's symptoms have mildly improved after treatment. 07/27 21:42 Order name: Basic Metabolic Panel; Complete Time: 22:33 rt 07/27 21:42 Order name: CBC with Diff; Complete Time: 22:06 rt 07/27 21:42 Order name: LFT's; Complete Time: :33 rt 07/27 21:42 Order name: Magnesium; Complete Time: : rt 07/27 21:42 Order name: PT-INR; Complete Time: 22: rt 07/27 21:42 Order name: Troponin HS; Complete Time: 22:33 rt 07/27 21:42 Order name: XRAY Chest (1 view); Complete Time: : rt 07/27 21:42 Order name: EKG; Complete Time: 21:43 rt 07/27 21:42 Order name: Cardiac monitoring; Complete Time: :48 rt 07/27 21:42 Order name: EKG - Nurse/Tech; Complete Time: :48 rt 07/27 21:42 Order name: IV Saline Lock; Complete Time: :48 rt 07/27 21:42 Order name: Labs collected and sent; Complete Time: :48 rt 07/27 21:42 Order name: O2 Per Protocol; Complete Time: :48 rt 07/27 21:42 Order name: O2 Sat Monitoring; Complete Time: 21:48 rt EC/29 21:49 Rate is 101 beats/min. Rhythm is regular, Sinus tachycardia with No ectopy. QRS [place] is rt Normal. [place] interval is normal. QRS interval is normal. QT interval is normal. No Q waves. ST Segment is elevated in leads III, aVF. Clinical impression: Inferior [place] - acute. 21:49 Rate is 104 beats/min. Rhythm is regular, Sinus tachycardia with No ectopy. QRS [place] is rt Normal. [place] interval is normal. QRS interval is normal. QT interval is normal. No Q waves. ST Segment is elevated in leads III, aVF. Administered Medications: 21:50 Drug: morphine IVP or IV 4 mg IVP once over 4 mins Route: IVP; Infused Over: 4 mins; rv Site: right forearm; 22:37 Follow up: Response: No adverse reaction; Marked relief of symptoms cm10 21:50 Drug: Ondansetron IVP 4 mg IVP once; over 2 minutes Route: IVP; Site: right forearm; rv 22:37 Follow up: Response: No adverse reaction; Marked relief of symptoms cm10 21:50 Drug: Tenecteplase IV 45 mg IV at calculated rate once {Co-Signature: cm10 (ke Ring RN).} Route: IV; Rate: calculated rate; Site: right forearm; 22:36 Follow up: Response: No adverse reaction; IV Status: Completed infusion cm10 22:12 Drug: Heparin ([place]-Bolus No thrombolytic) - HEParin IVP 60 units/kg IVP once; Max 5000 cm10 units {Co-Signature: rv (Babatunde Jones RN).} Route: IVP; Site: right femoral; 22:36 Follow up: Response: Medication administered at discharge. cm10 22:13 Drug: Clopidogrel PO 75 mg PO once Route: PO; rv 22:36 Follow up: Response: Medication administered at discharge. cm10 22:13 Drug: Heparin ([place] Drip) 12 units/kg/[place] - ([place] [address] units, D5W IV 500 ml) IV at cm10 calculated rate Per protocol; Max initial rate 1000 units/hr {Co-Signature: rv (Babatunde Jones RN).} Route: IV; Rate: calculated rate; Site: right forearm; 22:36 Follow up: IV Status: Infusion continued upon transfer cm10 22:25 Drug: Magnesium Sulfate IVPB 2 grams IVPB once over 2 hrs Route: IVPB; Infused Over: 2 cm10 hrs; Site: right forearm; 22:34 Follow up: IV Status: Infusion continued upon transfer rv Disposition Summary: 07/28/23 21:51 Transfer Ordered Notes: Transfer Location: [facility] rt Reason: Higher level of care rt Condition: Critical rt Problem: new rt Symptoms: are unchanged rt Accepting Physician: (07/28/23 22:37) rv Diagnosis - ST elevation (STEMI) myocardial infarction involving other sites rt Forms: - Medication Reconciliation Form rt - SBAR form rt Critical care time excluding procedures: 07/28 03:32 Critical care time: Bedside Care: 30 minutes, Consultation: 10 minutes. Total time: 40 rt minutes Signatures: Dispatcher [employer] Shantelle Azul, JONAS-C PRODUCE TEAM LEAD-Babatunde Almaguer, RN RN rv Jose Sena MD MD rt Padmini Ring RN RN cm10 Padmini Ring RN 10 Babatunde Jones RN rv Corrections: (The following items were deleted from the chart) 07/27 21:43 21:43 BASIC METABOLIC PANEL+C.LAB.BRZ ordered. EDMS EDMS 21:43 21:43 CBC+H.LAB.BRZ ordered. EDMS EDMS : 21:43 HEPATIC FUNCTION+C.LAB.BRZ ordered. EDMS EDMS :43 21:43 MAGNESIUM+C.LAB.BRZ ordered. EDMS EDMS :43 21:43 PROTIME (+INR)+COAG.LAB.BRZ ordered. EDMS EDMS :43 21:43 Troponin High Sensitivity+C.LAB.BRZ ordered. EDMS EDMS 22:33 21:35 PSHx: Bipass; rv rv 22:37 21:51 rt rv
[2023-07-28 21:52] LABS: Absolute Basophils 0.1 K/uL (0-0.5); Absolute Eosinophils 0.2 K/uL (0-0.5); Absolute Lymphocytes (CBC) 1.1 K/uL (0.7-4.9); Absolute Monocytes 0.6 K/uL (0.1-1.3); Absolute Neutrophil 6.9 K/uL (1.8-8.0); Basophils % 0.7 % (0-1.3); Eosinophils % 2.6 % (0-4.4); Hematocrit 34.7 % (39.6-49.0); Lymphocytes % 12.2 % (15.3-44.8); MCH 31.6 pg (27.0-35.0); MCHC 34.7 g/dL (32.0-36.0); MCV 91.1 fL (80-100); MPV 7.6 fL (7.6-11.3); Monocytes % 6.6 % (3.3-12.3); Neutrophils % 77.9 % (41.7-73.7); Nucleated Red Blood Cells % 0.1 % (0-0); Platelets 193 thou/uL (152-406); Red Cell Distribution Width 14.5 % (12.1-15.2)
[2023-07-28 22:02] LABS: PT Prothrombin Time 11.9 SECONDS (9.5-12.5); Protime INR 1.08
--- NOTE | 2023-07-28 22:04 | RAD REPORT ---
EXAM DESCRIPTION: RAD - Chest Single View - 07/28/2023 9:57 pm CLINICAL HISTORY: CHEST PAIN Chest pain. COMPARISON: <Comparisons> FINDINGS: Portable technique limits examination quality. Mild bilateral pulmonary opacities are present, superimposed on chronic changes. This suggests mild p ulmonary edema. The heart is moderately enlarged. Sternotomy wires are present. IMPRESSION: Mild CHF suspected superimposed on chronic changes.
[2023-07-28] MEDS ORDERED: CLOPIDOGREL 75 MG TABLET ONE (22:09)
[2023-07-28] MEDS ORDERED: HEPARIN/D5W 25,000 UNIT/500 ML BAG IV ONE (22:09)
[2023-07-28] MEDS ORDERED: HEPARIN 5000 UNIT/ML 1 ML VIAL ONE (22:10)
[2023-07-28 22:21] LABS: Albumin 3.6 g/dL (3.4-5.0); Albumin/Globulin Ratio 1.2 (1.1-1.8); Anion Gap 14.4 mEq/L (5.0-15.0); Bilirubin Direct 0.1 mg/dL (0-0.2); Bilirubin Indirect, Calculated 0.3 mg/dL (0.2-0.8); Bilirubin Total 0.4 mg/dL (0.2-1.0); Potassium 4.4 mEq/L (3.5-5.1); Protein, Total 6.6 g/dL (6.4-8.2); Troponin High Sensitivity 44.5 pg/mL (<58.9)
[2023-07-28] MEDS ORDERED: Magnesium Sulfate 2gm IVPB 2 G/50 ML BAG IV ONE (22:23)
[2023-07-28 22:46] VITALS: BP 157/76; TEMP 98.8; O2SAT 99
--- NOTE | 2023-07-31 13:46 | EKG ---
Test Date: 2023-07-28 Test Time: 20:37:35 Keg Inspector: PERLA MEASUREMENT RESULTS: Intervals: Rate: 104 WA: 202 QRSD: 108 QT: 344 QTc: 452 [place]: P: 67 WA: 202 QRS: 43 T: 61 INTERPRETIVE STATEMENTS: Sinus tachycardia Inferior injury pattern ACUTE AL Consider right ventricular involvement in acute inferior infarct Abnormal ECG Compared to ECG 07/28/2023 20:32:46 Accelerated junctional rhythm no longer present Myocardial infarct finding still present Electronically Signed On 07-31-23 13:38:14 CDT by Danny Knowles
--- NOTE | 2023-07-31 13:46 | EKG ---
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
== END 2023-07-28 22:37 | disposition short-term general hospital (02) ==
LOC: ER 21:27
DX: I21.29 ST elevation (STEMI) myocardial infarction involving other sites (principal); I10 Essential (primary) hypertension; Z95.1 Presence of aortocoronary bypass graft
CPT/HCPCS: 92977; 85025; 80048; 36415; 83735; 85610; 80076; 84484; 71045; 99285; J1644 ×2; J3101; J3475; J2405; 93005

== ENCOUNTER 2023-12-18 00:36 | Emergency (ER) | payer OTHER ==
[2023-12-18 01:43] LABS: Specific Gravity 1.013 (1.005-1.030); Sqamous Epithelial None Seen /HPF (None Seen); Urine Bacteria None Seen /HPF (<20); Urine Bilirubin NEGATIVE (Negative); Urine Blood 2+ (Negative); Urine Clarity Extremely Turbid (Clear); Urine Color Light-Orange (Yellow); Urine Culture Reflex Order REFLEXED; Urine Glucose 4+ (Over) (Negative); Urine Ketones NEGATIVE (Negative); Urine Microscopic Reflex YN ORDER UMIC; Urine Nitrite NEGATIVE (Negative); Urine Protein 2+ (Negative); Urine Urobilinogen Normal (Normal); Urine WBC >50 /HPF (<5)
[2023-12-18 01:44] LABS: Urine WBC Clump Moderate /HPF (None Seen)
--- NOTE | 2023-12-18 01:54 | ER ---
Nurse's Notes [facility] Name: Bon Das Age: 83 yrs Sex: Male : 1940 Arrival Date: 12/18/2023 Time: 00:36 Bed 19 Private MD: Diagnosis: Mechanical complication of urinary (indwelling) catheter;UTI/ Urinary tract infection, site not specified Presentation: 12/17 01:00 Chief complaint: Patient states: I have not urinated since 6 pm. Coronavirus screen: At jb4 this time, the client does not indicate any symptoms associated with coronavirus-19. Ebola Screen: No symptoms or risks identified at this time. Initial Sepsis Screen: Does the patient meet any 2 criteria? No. Patient's initial sepsis screen is negative. Does the patient have a suspected source of infection? No. Patient's initial sepsis screen is negative. Risk Assessment: Do you want to hurt yourself or someone else? Patient reports no desire to harm self or others. Onset of symptoms was December 18, 2023. Transition of care: patient was not received from another setting of care. 01:00 Method Of Arrival: Ambulatory jb4 01:00 Acuity: JOSE CRUZ 3 jb4 Historical: - Allergies: 01:02 No Known Allergies; jb4 - PMHx: 01:02 diabetes mellitus; Hypertensive disorder; Myocardial infarction; june 2023; jb4 - PSHx: 01:02 cardiac stents; Coronary artery bypass graft; jb4 - Immunization history:: Adult Immunizations up to date. - Infectious Disease History:: Denies. - Social history:: Smoking status: Patient denies any tobacco usage or history of. Screenin:[address] [facility] ED Fall Risk Assessment (Adult) History of falling in the last 3 months, pc2 including since admission No falls in past 3 months (0 pts) Confusion or Disorientation No (0 pts) Intoxicated or Sedated No (0 pts) Impaired Gait No (0 pts) Mobility Assist Device Used No (0 pt) Altered Elimination Yes (1 pt) Score/Fall Risk Level 0 - 2 = Low Risk Oriented to surroundings, Maintained a safe environment, Hourly rounding (assess needs \T\ fall precautionary measures) done. Abuse screen: Denies threats or abuse. Denies injuries from another. Nutritional screening: No deficits noted. Tuberculosis screening: No symptoms or risk factors identified. Assessment: 01:20 General: Appears in no apparent distress. uncomfortable, well groomed, Behavior is pc2 calm, cooperative, appropriate for age. Pain: Complains of pain in suprapubic Pain currently is 10 out of 10 on a pain scale. Neuro: Louis Agitation-Sedation Scale (RASS): 0 - Alert and Calm Level of Consciousness is awake, alert, obeys commands, Oriented to person, place, time, situation. Cardiovascular: Patient's skin is warm and dry. Respiratory: Airway is patent Respiratory effort is even, unlabored, Respiratory pattern is regular, symmetrical. GI: Abdomen is flat, non-distended. : Schreiber in place small amount of urine noted to leg bag. pt reports he hasn't emptied it in a few hours because it's not draining much. Bladder is distended Reports inability to void, since yesterday evening. 01:20 EENT: No signs and/or symptoms were reported regarding the EENT system. Derm: No signs pc2 and/or symptoms reported regarding the dermatologic system. Musculoskeletal: No signs and/or symptoms reported regarding the musculoskeletal system. 02:00 Reassessment: Patient appears in no apparent distress at this time. Patient is alert, pc2 oriented x 3, equal unlabored respirations, skin warm/dry/pink. Patient states feeling better. Patient states symptoms have improved. Vital Signs: 01:00 BP 163 / 79; Pulse 90; Resp 16; Temp 98.7(O); Pulse Ox 100% on R/A; Weight 69.85 kg jb4 (R); Height 5 ft. 9 in. ; Pain 8/10; 02:05 BP 132 / 76; Pulse 83; Resp 18; Pulse Ox 100% on R/A; pc2 01:00 Body Mass Index 22.74 (69.85 kg, 175.26 cm) jb4 01:00 Pain Scale: Adult jb4 ED Course: 00:37 Patient arrived in ED. jj6 00:39 Alberto Garcia MD is Attending Physician. rn 01:02 Triage completed. jb4 01:02 Arm band placed on right wrist. jb4 01:11 Julia Mcmahon, RN is Primary Nurse. pc2 01:18 Schreiber cath removed intact, balloon deflated. pc2 01:20 Bed in low position. Call light in reach. Side rails up X2. pc2 01:20 Schreiber cath inserted, using sterile technique, 16 Fr., by fl, balloon inflated, to pc2 gravity drainage, urine specimen collected. 01:25 Urinalysis w/ reflexes Sent. pc2 01:56 Urine Culture Sent. pc2 02:11 No provider procedures requiring assistance completed. pc2 02:16 Provided Education on: Catheter care, medication usage. pc2 02:17 Patient did not have IV access during this emergency room visit. pc2 Administered Medications: No medications were administered Medication: 02:12 VIS not applicable for this client. pc2 Output: 01:30 Urine: 800ml (Schreiber); Total: 800ml. pc2 Outcome: 01:54 Discharge ordered by . rn 02:17 Discharged to home ambulatory, pc2 02:17 Condition: stable 02:17 Discharge instructions given to patient, Instructed on discharge instructions, follow up and referral plans. medication usage, Demonstrated understanding of instructions, follow-up care, medications, Prescriptions given X 1, 02:18 Patient left the ED. pc2 Signatures: Alberto Garcia MD MD rn Bryson, James RN RN jb4 Colleen Connell6 Julia Mcmahon, RN RN pc2
--- NOTE | 2023-12-18 01:54 | EDPHYS ---
Physician Documentation [facility] Name: Bon Das Age: 83 yrs Sex: Male : 1940 Arrival Date: 12/18/2023 Time: 00:36 Bed 19 Private MD: ED Physician Alberto Garcia HPI: 12/17 00:49 This 83 yrs old Male presents to ER via Ambulatory with complaints of Problem rn With Urinary Catheter, Urinary Retention. 00:49 83-year-old male with past medical history of BPH, PR presents to the emergency rn department complaining of Schreiber catheter problem with urinary retention. The patient states that he has an indwelling Schreiber catheter originally placed in July due to prostate problems causing urinary retention but has not had any urine output through the catheter for the past 4 to 5 hours and is now experiencing 8/10 suprapubic pain. He denies passage of any blood or clots through the catheter. Patient reports the catheter was last changed 2 weeks ago in this emergency department due to fecal impaction he had at that time that is since resolved. Patient also states that he has been experiencing mild upper respiratory symptoms since yesterday but denies taking any [id number] medications for these symptoms... Historical: - Allergies: 01:02 No Known Allergies; jb4 - PMHx: 01:02 diabetes mellitus; Hypertensive disorder; Myocardial infarction; june 2023; jb4 - PSHx: 01:02 cardiac stents; Coronary artery bypass graft; jb4 - Immunization history:: Adult Immunizations up to date. - Infectious Disease History:: Denies. - Social history:: Smoking status: Patient denies any tobacco usage or history of. ROS: 01:05 Constitutional: Negative for fever, chills, and weight loss, Cardiovascular: Negative rn for chest pain, palpitations, and edema, Respiratory: Negative for shortness of breath, cough, wheezing, and pleuritic chest pain, Abdomen/GI: Negative for nausea, vomiting, diarrhea, and constipation, 01:05 Abdomen/GI: Negative for abdominal pain, nausea, vomiting, diarrhea, and constipation, 01:05 ENT: Positive for rhinorrhea, sore throat, 01:05 : Positive for difficulty urinating, 01:05 : Positive for pelvic pain, 01:05 : Negative for hematuria, burning with urination, bladder incontinence, 01:05 All other systems are negative, Exam: 01:21 Constitutional: This is a well developed, well nourished patient who is awake, alert, rn appears uncomfortable Cardiovascular: Regular rate and rhythm. No pulse deficits. Abdomen/GI: soft, ,mild suprapubic tenderness Neuro: Awake and alert, GCS 15 Vital Signs: 01:00 BP 163 / 79; Pulse 90; Resp 16; Temp 98.7(O); Pulse Ox 100% on R/A; Weight 69.85 kg jb4 (R); Height 5 ft. 9 in. ; Pain 8/10; 02:05 BP 132 / 76; Pulse 83; Resp 18; Pulse Ox 100% on R/A; pc2 01:00 Body Mass Index 22.74 (69.85 kg, 175.26 cm) jb4 01:00 Pain Scale: Adult jb4 MDM: 00:39 Patient medically screened. rn 01:54 Differential diagnosis: UTI, urinary retention, Schreiber catheter problem. Data reviewed: rn vital signs, nurses notes, lab test result(s), and as a result, I will discharge patient. Counseling: I had a detailed discussion with the patient and/or guardian regarding the historical points, exam findings, and any diagnostic results supporting the discharge/admit diagnosis, lab results, the need for outpatient follow up, to return to the emergency department if symptoms worsen or persist or if there are any questions or concerns that arise at home. Special discussion: I discussed with the patient/guardian in detail that at this point there is no indication for admission to the hospital. It is understood, however, that if the symptoms persist or worsen the patient needs to return immediately for re-evaluation. 12/17 01:00 Order name: Urinalysis w/ reflexes; Complete Time: 01:45 rn 12/17 01:47 Order name: Urine Culture EDMS 12/17 02:17 Order name: Schreiber Leg Bag; Complete Time: 02:18 pc2 12/17 02:18 Order name: Schreiber; Complete Time: 02:18 pc2 Administered Medications: No medications were administered Disposition Summary: 12/18/23 01:54 Discharge Ordered Notes: Location: Home rn Problem: new rn Symptoms: have improved rn Condition: Stable rn Diagnosis - Mechanical complication of urinary (indwelling) catheter rn - UTI/ Urinary tract infection, site not specified rn Followup: rn - With: Private Physician - When: As needed - Reason: Recheck today's complaints, Re-evaluation by your physician Discharge Instructions: - Discharge Summary Sheet rn - Indwelling Urinary Catheter Care, Adult rn - Urinary Tract Infection, Adult rn Forms: - Medication Reconciliation Form rn - Antibiotic government instructor - Prescription Opioid Use rn - Patient Portal Instructions rn - Leadership Thank You Letter rn Prescriptions: - Cipro 500 mg Oral Tablet - take 1 tablet ORAL route every 12 hours for 7 days; 14 tablet; Refills: 0, rn Product Selection Permitted Signatures: Dispatcher [employer] EDNV Alberto Garcia MD MD rn Bryson, James RN RN jb4 Julia Mcmahon, RN RN pc2 Corrections: (The following items were deleted from the chart) 01:01 01:01 Urinalysis+U.LAB.BRZ ordered. [facility] EDMS 01:56 00:57 Bladder Scanner ordered. rn pc2
[2023-12-18 02:39] VITALS: TEMP 98.7; O2SAT 100
[2023-12-18 02:41] VITALS: BP 132/76
== END 2023-12-18 02:18 | disposition home or self-care (01) ==
LOC: ER 00:36
PROC: 0T2BX0Z Change Drainage Device in Bladder, External Approach (ICD-10-PCS; principal; 2023-12-18)
DX: T83.098A Other mechanical complication of other urinary catheter, initial encounter (principal); N39.0 Urinary tract infection, site not specified
CPT/HCPCS: 81001; 87086; 87088

== ENCOUNTER 2024-01-03 07:19 | Emergency (ER) | payer OTHER ==
[2024-01-03 08:17] LABS: Specific Gravity 1.009 (1.005-1.030); Sqamous Epithelial None Seen /HPF (None Seen); Urine Bacteria None Seen /HPF (<20); Urine Bilirubin NEGATIVE (Negative); Urine Blood 2+ (Negative); Urine Clarity Extremely Turbid (Clear); Urine Color Light-Orange (Yellow); Urine Culture Reflex Order REFLEXED; Urine Glucose 4+ (Negative); Urine Ketones NEGATIVE (Negative); Urine Microscopic Reflex YN ORDER UMIC; Urine Mucus Slight /HPF (None Seen); Urine Nitrite NEGATIVE (Negative); Urine Protein 2+ (Negative); Urine RBC >50 /HPF (None Seen); Urine Urobilinogen Normal (Normal); Urine WBC >50 /HPF (<5); Urine WBC Clump Many /HPF (None Seen); Urine pH 6.5 (5.0-7.0)
--- NOTE | 2024-01-03 09:23 | ER ---
Nurse's Notes [facility] Name: Bon Das Age: 83 yrs Sex: Male : 1940 Arrival Date: 01/03/2024 Time: 07:19 Bed 4 Private MD: Diagnosis: Urinary Retention;Other mechanical complication of other urinary catheter, initial encounter;UTI/ Urinary tract infection, site not specified Presentation: 01/02 07:32 Chief complaint: Patient states: Pt states catheter stopped draining last night and is dd2 painful now. Coronavirus screen: At this time, the client does not indicate any symptoms associated with coronavirus-19. Ebola Screen: No symptoms or risks identified at this time. Initial Sepsis Screen: Does the patient meet any 2 criteria? No. Patient's initial sepsis screen is negative. Does the patient have a suspected source of infection? No. Patient's initial sepsis screen is negative. Risk Assessment: Do you want to hurt yourself or someone else? Patient reports no desire to harm self or others. Onset of symptoms was January 02, 2024. 07:32 Method Of Arrival: Ambulatory dd2 07:32 Acuity: JOSE CRUZ 3 dd2 Triage Assessment: 07:32 General: Appears uncomfortable, Behavior is calm, cooperative, appropriate for age. dd2 Pain: Complains of pain in groin and suprapubic area Pain currently is 7 out of 10 on a pain scale. EENT: No deficits noted. No signs and/or symptoms were reported regarding the EENT system. Neuro: Level of Consciousness is awake, alert, obeys commands, Oriented to person, place, time, situation, Appropriate for age. Cardiovascular: Denies chest pain, Patient's skin is warm and dry. Respiratory: No deficits noted. Airway is patent. GI: No deficits noted. No signs and/or symptoms were reported involving the gastrointestinal system. : Floyd in place Reports inability to void, pain in suprapubic area. Derm: Wound noted left ear Wound is scabbed wound to lt ear. Musculoskeletal: No deficits noted. No signs and/or symptoms reported regarding the musculoskeletal system. Historical: - Allergies: 07:25 No Known Allergies; ll1 - PMHx: 07:25 diabetes mellitus; Hypertensive disorder; Myocardial infarction; june 2023; ll1 - PSHx: 07:25 cardiac stents; Coronary artery bypass graft; ll1 - Immunization history:: Adult Immunizations up to date. - Infectious Disease History:: Denies. - Social history:: Smoking status: Patient denies any tobacco usage or history of. Screenin:38 [facility] ED Fall Risk Assessment (Adult) History of falling in the last 3 months, dd2 including since admission No falls in past 3 months (0 pts) Confusion or Disorientation No (0 pts) Intoxicated or Sedated No (0 pts) Impaired Gait No (0 pts) Mobility Assist Device Used No (0 pt) Altered Elimination No (0 pt) Score/Fall Risk Level 0 - 2 = Low Risk Oriented to surroundings, Maintained a safe environment, Hourly rounding (assess needs \T\ fall precautionary measures) done. Abuse screen: Denies threats or abuse. Nutritional screening: No deficits noted. Tuberculosis screening: No symptoms or risk factors identified. Assessment: 07:38 Reassessment: Jenn triage for full assessment. dd2 09:40 Reassessment: 950 cc urine drained from floyd leg bag. Patient states feeling better. dd2 Vital Signs: 07:32 BP 159 / 100; Pulse 96; Resp 16; Temp 97.7; Pulse Ox 99% ; Weight 71.67 kg; Height 5 dd2 ft. 9 in. ; 08:03 BP 122 / 72; Pulse 85; Resp 16; Pulse Ox 100% ; dd2 09:40 BP 125 / 60; Pulse 74; Resp 15; Pulse Ox 99% ; dd2 07:32 Body Mass Index 23.33 (71.67 kg, 175.26 cm) dd2 ED Course: 07:22 Patient arrived in ED. im 07:25 Arm band placed on Patient placed in an exam room, on a stretcher. ll1 07:26 KAYE ENGLISH, RN is Primary Nurse. dd2 07:28 Britton Hemphill DO is Attending Physician. ms3 07:33 Triage completed. dd2 07:38 Patient has correct armband on for positive identification. Bed in low position. Call dd2 light in reach. Side rails up X 1. Provided Education on: Call light, procedures, labs. Client placed on continuous cardiac and pulse oximetry monitoring. NIBP monitoring applied. Door closed. Warm blanket given. 07:38 No provider procedures requiring assistance completed. dd2 08:02 Urinalysis w/ reflexes Sent. dd2 08:02 Urine collected: Floyd catheter specimen, cloudy. Floyd cath inserted, using sterile dd2 technique, 16 Fr., by me, balloon inflated, to gravity drainage, urine specimen collected. 09:40 Patient did not have IV access during this emergency room visit. dd2 Administered Medications: No medications were administered Medication: 07:38 VIS not applicable for this client. dd2 Outcome: :23 Discharge ordered by . ms3 09:40 Discharged to home ambulatory, dd2 :40 Condition: stable :40 Discharge instructions given to patient, Instructed on discharge instructions, follow up and referral plans. medication usage, Demonstrated understanding of instructions, follow-up care, medications, Prescriptions given X 1, :42 Patient left the ED. dd2 Signatures: Abeba Leigh, RN RN ll1 Britton Hemphill DO DO ms3 Dominique Elam DIANA, RN RN dd2 Corrections: (The following items were deleted from the chart) :40 08:02 Flyod cath inserted, using sterile technique, 16 Fr., by me, balloon inflated, to dd2 gravity drainage, urine specimen collected. dd2
--- NOTE | 2024-01-03 09:23 | EDPHYS ---
Physician Documentation [facility] Name: Bon Das Age: 83 yrs Sex: Male : 1940 Arrival Date: 01/03/2024 Time: 07:19 Bed 4 Private MD: ED Physician Britton Hemphill HPI: 01/02 09:37 This 83 yrs old Male presents to ER via Ambulatory with complaints of Problem With ms3 Urinary Catheter. 09:37 83-year-old male with past medical history of diabetes, hypertension, myocardial ms3 infarction presents to the emergency department for urinary retention after Schreiber catheter stopped draining last night. Patient denies fevers, chills. Patient endorses suprapubic pressure.. Historical: - Allergies: 07:25 No Known Allergies; ll1 - PMHx: 07:25 diabetes mellitus; Hypertensive disorder; Myocardial infarction; june 2023; ll1 - PSHx: 07:25 cardiac stents; Coronary artery bypass graft; ll1 - Immunization history:: Adult Immunizations up to date. - Infectious Disease History:: Denies. - Social history:: Smoking status: Patient denies any tobacco usage or history of. ROS: 09:37 Constitutional: Negative for fever, and chills. Cardiovascular: Negative for chest ms3 pain, and palpitations. Respiratory: Negative for shortness of breath, cough, wheezing, and pleuritic chest pain, 09:37 Abdomen/GI: Negative for abdominal pain, nausea, vomiting, diarrhea, and constipation, 09:37 : Positive for Urinary retention, Exam: 09:37 Constitutional: This is a well developed, well nourished patient who is awake, alert, ms3 and in no acute distress. Cardiovascular: Regular rate and rhythm with a normal S1 and S2. No gallops, murmurs, or rubs. Normal PMI, no JVD. No pulse deficits. Respiratory: Lungs have equal breath sounds bilaterally, clear to auscultation and percussion. No rales, rhonchi or wheezes noted. No increased work of breathing, no retractions or nasal flaring. MS/ Extremity: Pulses equal, no cyanosis. Neurovascular intact. Full, normal range of motion. 09:37 Abdomen/GI: Inspection: abdomen appears normal, Bowel sounds: normal, Palpation: mild abdominal tenderness, in the suprapubic area, Vital Signs: 07:32 BP 159 / 100; Pulse 96; Resp 16; Temp 97.7; Pulse Ox 99% ; Weight 71.67 kg; Height 5 dd2 ft. 9 in. ; 08:03 BP 122 / 72; Pulse 85; Resp 16; Pulse Ox 100% ; dd2 09:40 BP 125 / 60; Pulse 74; Resp 15; Pulse Ox 99% ; dd2 07:32 Body Mass Index 23.33 (71.67 kg, 175.26 cm) dd2 MDM: 07:39 Patient medically screened. ms3 09:37 Differential diagnosis: UTI, urinary retention, Schreiber catheter problem. Data reviewed: ms3 vital signs, nurses notes, lab test result(s), and as a result, I will discharge patient. I considered the following discharge prescriptions or medication management in the emergency department Antibiotics prescribed. Care significantly affected by the following chronic conditions: Diabetes, Hypertension. Counseling: I had a detailed discussion with the patient and/or guardian regarding the historical points, exam findings, and any diagnostic results supporting the discharge/admit diagnosis, lab results, the need for outpatient follow up, to return to the emergency department if symptoms worsen or persist or if there are any questions or concerns that arise at home. Special discussion: I discussed with the patient/guardian in detail that at this point there is no indication for admission to the hospital. It is understood, however, that if the symptoms persist or worsen the patient needs to return immediately for re-evaluation. ED course: Patient urinary catheter exchanged with relief of patient's symptoms. Patient given Vantin 200 mg p.o. twice daily x 10 days prescription. Patient follow-up with primary care physician in 2 to 3 days. Patient understands and agrees with plan. All questions were answered. Return precautions discussed include worsening symptoms, or any other concerns. 01/02 07:40 Order name: Urinalysis w/ reflexes; Complete Time: 08:34 ms3 01/02 08:33 Order name: Urine Culture EDMS 01/02 07:40 Order name: Schreiber Leg Bag; Complete Time: 08:02 ms3 01/02 07:40 Order name: Schreiber; Complete Time: 08:02 ms3 Administered Medications: No medications were administered Disposition Summary: 01/03/24 09:23 Discharge Ordered Notes: Location: Home ms3 Condition: Stable ms3 Diagnosis - Urinary Retention ms3 - Other mechanical complication of other urinary catheter, initial encounter ms3 - UTI/ Urinary tract infection, site not specified ms3 Followup: ms3 - With: Private Physician - When: 2 - 3 days - Reason: Recheck today's complaints Discharge Instructions: - Discharge Summary Sheet ms3 - Urinary Tract Infection, Adult, [id number] ms3 Forms: - Medication Reconciliation Form ms3 - Antibiotic Education ms3 - Prescription Opioid Use ms3 - Patient Portal Instructions ms3 - Leadership Thank You Letter ms3 Prescriptions: - cefpodoxime 200 mg Oral tablet - take 1 tablet ORAL route every 12 hours with food; 20 tablet; Refills: 0, ms3 Product Selection Permitted Signatures: Dispatcher [employer] EDAbeba Kaur, RN RN ll1 Britton Hemphill DO DO ms3 KAYE ENGLISH RN RN dd2
[2024-01-03 09:54] VITALS: TEMP 97.7
[2024-01-03 09:58] VITALS: BP 125/60; O2SAT 99
== END 2024-01-03 09:42 | disposition home or self-care (01) ==
LOC: ER 07:19
DX: R33.9 Retention of urine, unspecified (principal); T83.098A Other mechanical complication of other urinary catheter, initial encounter; N39.0 Urinary tract infection, site not specified
CPT/HCPCS: 51702; 81001; 87086; 87088; 99284

== ENCOUNTER 2024-01-14 13:17 | Emergency (ER) | payer OTHER ==
--- NOTE | 2024-01-14 14:00 | EDPHYS ---
Physician Documentation [facility] Name: Bon Das Age: 83 yrs Sex: Male : 1940 Arrival Date: 01/14/2024 Time: 13:17 Bed 5 Private MD: ED Physician Alberto Garcia HPI: 01/13 13:38 This 83 yrs old Male presents to ER via Ambulatory with complaints of Urinary Problem. rn 13:38 The patient presents with a Schreiber catheter problem, is not draining. Onset: The rn symptoms/episode began/occurred today. Modifying factors: The symptoms are alleviated by nothing, the symptoms are aggravated by nothing. Severity of symptoms: At their worst the symptoms were moderate, in the emergency department the symptoms are unchanged. The patient has experienced similar episodes in the past. Patient reports thinks his Schreiber catheter is clogged again. Took his last dose of antibiotics today. Denies fever or chills. Does not feel sick. Denies bleeding. States this has happened multiple times and feels he needs his Schreiber catheter changed. No drainage of urine since the last few hours.. Historical: - Allergies: 13:26 No Known Allergies; hb - PMHx: 13:26 diabetes mellitus; Hypertensive disorder; Myocardial infarction; june 2023; hb - PSHx: 13:26 cardiac stents; Coronary artery bypass graft; hb - Immunization history:: Adult Immunizations up to date. - Infectious Disease History:: Denies. - Family history:: not pertinent. - Social history:: Smoking status: Patient denies any tobacco usage or history of. - Hospitalizations: : No recent hospitalization is reported. ROS: 13:38 Constitutional: Negative for fever, chills, and weight loss, Abdomen/GI: Positive for rn suprapubic pressure : Negative for injury, bleeding, discharge, and swelling, Exam: 13:38 Constitutional: This is a well developed, well nourished patient who is awake, alert, rn and in no acute distress. Abdomen/GI: Soft, no peritoneal signs, mild tenderness suprapubic region Male : Small amount of urine in leg bag with sediment. No hematuria. No purulence. Vital Signs: 13:24 BP 136 / 76; Pulse 66; Resp 16; Temp 97.4(TE); Pulse Ox 100% on R/A; Pain 6/10; hb 14:15 BP 109 / 55; Pulse 87; Resp 15; Pulse Ox 100% ; bp 13:24 Pain Scale: Adult hb MDM: 13:26 Patient medically screened. rn 13:58 Differential diagnosis: Schreiber catheter problem. Data reviewed: vital signs, nurses rn notes, and as a result, I will discharge patient. Counseling: I had a detailed discussion with the patient and/or guardian regarding the historical points, exam findings, and any diagnostic results supporting the discharge/admit diagnosis, the need for outpatient follow up, to return to the emergency department if symptoms worsen or persist or if there are any questions or concerns that arise at home. Response to treatment: the patient's symptoms have resolved after treatment, the patient's condition has returned to base line, the patient is now symptom free, and as a result, I will discharge patient. Special discussion: I discussed with the patient/guardian in detail that at this point there is no indication for admission to the hospital. It is understood, however, that if the symptoms persist or worsen the patient needs to return immediately for re-evaluation. Based on the history and exam findings, there is no indication for further emergent testing or inpatient evaluation. I discussed with the patient/guardian the need to see the urologist for further evaluation of the symptoms. ED course: Pain resolved after replacement of Schreiber catheter. Clear nonbloody urine obtained. Patient denies any pain and feels much better. Will discharge home with follow-up with his urologist Dr. Galan. Patient just finished last dose of antibiotics today and is afebrile without signs of infection so urine not repeated.. 01/13 13:30 Order name: Abdoul; Complete Time: 13:37 rn Administered Medications: No medications were administered Disposition Summary: 01/14/24 13:59 Discharge Ordered Notes: Location: Home rn Problem: new rn Symptoms: have improved rn Condition: Stable rn Diagnosis - Mechanical complication of urinary (indwelling) catheter rn Followup: rn - With: Akin Galan MD - When: As needed - Reason: Recheck today's complaints, Re-evaluation by your physician Discharge Instructions: - Discharge Summary Sheet rn - Indwelling Urinary Catheter Care, Adult rn Forms: - Medication Reconciliation Form rn - Antibiotic emergency department rn - Prescription Opioid Use rn - Patient Portal Instructions rn - Leadership Thank You Letter rn Signatures: Alberto Garcia MD MD rn Baxter, Heather, SARIKA RN hb Hardeep Torres, SARIKA RN bp
--- NOTE | 2024-01-14 14:00 | ER ---
Nurse's Notes [facility] Name: Bon Das Age: 83 yrs Sex: Male : 1940 Arrival Date: 01/14/2024 Time: 13:17 Bed 5 Private MD: Diagnosis: Mechanical complication of urinary (indwelling) catheter Presentation: 01/13 13:24 Chief complaint: Catheter not draining urine since 1000 today. Coronavirus screen: At hb this time, the client does not indicate any symptoms associated with coronavirus-19. Ebola Screen: No symptoms or risks identified at this time. Initial Sepsis Screen: Does the patient meet any 2 criteria? No. Patient's initial sepsis screen is negative. Does the patient have a suspected source of infection? No. Patient's initial sepsis screen is negative. Risk Assessment: Do you want to hurt yourself or someone else? Patient reports no desire to harm self or others. Onset of symptoms was January 14, 2024. 13:24 Method Of Arrival: Ambulatory hb 13:24 Acuity: JOSE CRUZ 4 hb Triage Assessment: 13:28 General: Appears uncomfortable, Behavior is calm, cooperative, appropriate for age. bp Pain: Complains of pain in pelvis. : Perry in place Reports inability to void. Historical: - Allergies: 13:26 No Known Allergies; hb - PMHx: 13:26 diabetes mellitus; Hypertensive disorder; Myocardial infarction; june 2023; hb - PSHx: 13:26 cardiac stents; Coronary artery bypass graft; hb - Immunization history:: Adult Immunizations up to date. - Infectious Disease History:: Denies. - Family history:: not pertinent. - Social history:: Smoking status: Patient denies any tobacco usage or history of. - Hospitalizations: : No recent hospitalization is reported. Screenin:29 [facility] ED Fall Risk Assessment (Adult) History of falling in the last 3 months, bp including since admission No falls in past 3 months (0 pts) Confusion or Disorientation No (0 pts) Intoxicated or Sedated No (0 pts) Impaired Gait No (0 pts) Mobility Assist Device Used No (0 pt) Altered Elimination No (0 pt) Score/Fall Risk Level 0 - 2 = Low Risk. Abuse screen: Denies threats or abuse. Denies injuries from another. Nutritional screening: No deficits noted. Tuberculosis screening: No symptoms or risk factors identified. Assessment: 13:29 General: Appears uncomfortable, Behavior is calm, cooperative, appropriate for age. bp Pain: Complains of pain in pelvis. Neuro: No deficits noted. Cardiovascular: No deficits noted. Respiratory: No deficits noted. GI: No signs and/or symptoms were reported involving the gastrointestinal system. : Perry in place Reports inability to void. EENT: No deficits noted. Vital Signs: 13:24 BP 136 / 76; Pulse 66; Resp 16; Temp 97.4(TE); Pulse Ox 100% on R/A; Pain 6/10; hb 14:15 BP 109 / 55; Pulse 87; Resp 15; Pulse Ox 100% ; bp 13:24 Pain Scale: Adult hb ED Course: 13:19 Patient arrived in ED. im 13:26 Alberto Garcia MD is Attending Physician. rn 13:26 Triage completed. hb 13:27 Arm band placed on. hb 13:28 Hardeep Torres, RN is Primary Nurse. bp 13:29 Patient has correct armband on for positive identification. bp 13:37 Perry cath inserted, using sterile technique, 16 Fr., by or, balloon inflated, to bp gravity drainage, other REPLACED OLD 16FR PERRY. 13:59 Akin Galan MD is Referral Physician. rn 14:15 No provider procedures requiring assistance completed. Patient did not have IV access bp during this emergency room visit. 14:16 Provided Education on: N/A. bp Administered Medications: No medications were administered Medication: 13:29 VIS not applicable for this client. bp Outcome: 13:59 Discharge ordered by . rn 14:15 Discharged to home ambulatory, bp 14:15 Condition: stable 14:15 Discharge instructions given to patient, Instructed on discharge instructions, follow up and referral plans. Demonstrated understanding of instructions, follow-up care, 14:16 Patient left the ED. bp Signatures: Alberto Garcia MD MD rn Baxter, Heather, RN RN Hardeep Torres, SARIKA RN Dominique Dale im
[2024-01-14 14:22] VITALS: TEMP 97.4; O2SAT 100
[2024-01-14 14:23] VITALS: BP 109/55
== END 2024-01-14 14:16 | disposition home or self-care (01) ==
LOC: ER 13:17
DX: T83.098A Other mechanical complication of other urinary catheter, initial encounter (principal)
CPT/HCPCS: 51702; 99284

== ENCOUNTER 2024-06-22 11:07 | Emergency (ER) | payer OTHER ==
[2024-06-22] MEDS ORDERED: HYDROCODONE/APAP 7.5/325 MG TAB ONE (12:11)
--- NOTE | 2024-06-22 13:33 | RAD REPORT ---
EXAMINATION:Lower Extremity Artery Uni Ltd CLINICAL INDICATION: Male, 83 years old. [facility] MAIN right PAIN Bed Name: 17 TECHNIQUE: Arterial duplex ultrasound was performed of the Right lower extremity with real-time, colo r-flow, and spectral wave Doppler evaluation. COMPARISON: No prior exam. FINDINGS: Moderate calcified plaque throughout the evaluated arterial system. Biphasic waveforms are seen thro ughout the evaluated Right lower extremity arterial system, to the level of the popliteal artery. Monophasic waveforms seen along the posterior tibial and dorsalis pedis artery. No other suspicious f indings. IMPRESSION: Moderate peripheral vascular disease as above.
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
--- NOTE | 2024-06-22 13:40 | RAD REPORT ---
EXAMINATION: US RIGHT LOWER EXTREMITY VENOUS DOPPLER CLINICAL INDICATION: [facility] MAIN right lower leg PAIN Bed Name: 17 Y TECHNIQUE: Complete bilateral duplex sonography of the RIGHT lower extremity veins was performed. The examination included compression for vein patency, color Doppler imaging and flow augmentation in response to distal compression of the distal external iliac, common femoral, femoral, popliteal, tibi al, and great and small saphenous veins. COMPARISON: No prior exam. FINDINGS: Duplex sonography testing of the veins of the RIGHT lower extremity was performed. Color flow imaging shows all veins to be compressible with [id number] color filling. Pulsatile and phasic flow is present within all lower extremity deep and superficial veins examined. IMPRESSION: No evidence of deep venous thrombosis.
--- NOTE | 2024-06-22 13:52 | EDPHYS ---
Physician Documentation [facility] Name: Bon Das Age: 83 yrs Sex: Male : 1940 Arrival Date: 06/22/2024 Time: 11:07 Bed 17 Private MD: ED Physician Terry Wells HPI: 06/22 14:18 This 83 yrs old Male presents to ER via Wheelchair with complaints of Foot Pain. kb 14:18 Pt is an 83 year old male who presents for pain to right foot. States he has had pain kb for a couple of weeks. Home health nurse came to do a dressing change today and pt complained of pain so she called Dr Vera who recommended coming to the ER for evaluation. states "Dr Taylor is going to meet us here." Pt was seen by Dr Vera on Monday for this foot and has a follow up on Monday this week. . Historical: - Allergies: 11: No Known Allergies; ap3 - PMHx: 11: diabetes mellitus; Hypertensive disorder; Myocardial infarction; june 2023; ap3 - PSHx: 11: cardiac stents; Coronary artery bypass graft; ap3 - Immunization history:: Client reports receiving the 2nd dose of the Covid vaccine, Flu vaccine is not up to date. - Infectious Disease History:: Denies. - Social history:: Smoking status: Patient denies any tobacco usage or history of. ROS: 12:20 Constitutional: As per HPI kb Exam: 14:17 Constitutional: This is a well developed, well nourished patient who is awake, alert, kb and in no acute distress. Head/Face: Normocephalic, atraumatic. ENT: Moist Mucous membranes Cardiovascular: Regular rate Respiratory: Respirations even and unlabored. No increased work of breathing. Talking in full sentences Abdomen/GI: Soft, non-tender. No distention MS/ Extremity: Pulses equal, no cyanosis. Neurovascular intact. Full, normal range of motion. Neuro: Awake and alert, GCS 15, oriented to person, place, time, and situation. 14:17 Skin: wound between forth and fifth digits on right foot with mild erythema to midfoot. No swelling, warmth, drainage. Vital Signs: 11:20 BP 115 / 94; Pulse 103; Resp 18; Temp 98.3; Pulse Ox 100% ; Weight 64.86 kg; Height 5 ap3 ft. 9 in. ; Pain 8/10; 12:18 BP 128 / 85; Pulse 59; Resp 20; Pulse Ox 99% on R/A; kj2 13:00 BP 120 / 59; Pulse 75; Resp 18; Pulse Ox 100% on R/A; kj2 13:57 BP 117 / 53; Pulse 79; Resp 18; Pulse Ox 100% on R/A; kj2 11:20 Body Mass Index 21.12 (64.86 kg, 175.26 cm) ap3 11:20 Pain Scale: Adult ap3 MDM: 11:10 Medical Screening Exam initiated kb 12:19 Data reviewed: vital signs, nurses notes. Management of patient was discussed with the kb following: Jd Edwards: Dr Vera consulted. wants US arterial and venous completed if possible. Pictures of foot sent to Dr Vera for comparison from his office. . Historians other than the Patient: Spouse/Significant Other: . 14:23 Differential diagnosis: wound infection, celluliitis neuropathy. Consideration of kb Admission/Observation Escalation of care including admission/observation considered. admission considered but pt reports erythema to foot is the same as it has been since October, is afebrile, vitals wnl. . Test considered but Not performed: Labs: cbc, cmp, blood cultures, lactate considered but pt is afebrile, no changes in pain, erythema or wound recently, VSS. . Counseling: I had a detailed discussion with the patient and/or guardian regarding the historical points, exam findings, and any diagnostic results supporting the discharge/admit diagnosis, radiology results, the need for outpatient follow up, a general surgeon, to return to the emergency department if symptoms worsen or persist or if there are any questions or concerns that arise at home. ED course: Pt is already on antibiotics and will keep follow up appt with Dr Vera for this week. 06/22 12:12 Order name: Foot Right 3 View XRAY; Complete Time: 13:42 kb 06/22 12:17 Order name: US LE Artery Uni Ltd; Complete Time: 13:37 kb 06/22 12:17 Order name: Extremity Venous Unilateral Ltd; Complete Time: 13:42 kb Administered Medications: 12:18 Drug: Hydrocodone-Acetaminophen PO (7.5 mg-325 mg) 1 tabs PO once Route: PO; kj2 14:00 Follow up: Response: No adverse reaction kj2 Disposition Summary: 06/22/24 13:51 Discharge Ordered Notes: Location: Home kb Condition: Stable kb Diagnosis - Pain in right foot - diabetic wound kb - Peripheral vascular disease, unspecified kb Followup: kb - With: Emergency Department - When: As needed - Reason: Worsening of condition Followup: kb - With: Private Physician - When: 2 - 3 days - Reason: Recheck today's complaints, Continuance of care, Re-evaluation by your physician Discharge Instructions: - Discharge Summary Sheet kb - Peripheral Vascular Disease, [id number] kb - Wound Care, Adult kb Forms: - Medication Reconciliation Form kb - Antibiotic Education kb - Prescription Opioid Use kb - Patient Portal Instructions kb - Leadership Thank You Letter kb Addendum: 06/24/2024 12:41 Co-signature as Attending Physician, Terry Wells MD I agree with the assessment and c cason plan of care. Signatures: Dispatcher [employer] EDMO Shantelle Araujo, CEMENT HANDLER-C CEMENT HANDLER-Ckb Terry Wells MD MD cha Prokisch, Amanda, RN RN ap3 Jammie Ledbetter, RN RN kj2 Corrections: (The following items were deleted from the chart) 06/22 12:17 12:17 Extremity Venous Uni Ltd+[email or web address] ordered. [facility] 14:26 12:19 Management of patient was discussed with the following: Jd Edwards: Dr Chuy matthews consulted. wants US arterial and venous completed. kb
--- NOTE | 2024-06-22 13:52 | ER ---
Nurse's Notes [facility] Name: Bon Das Age: 83 yrs Sex: Male : 1940 Arrival Date: 06/22/2024 Time: 11:07 Bed 17 Private MD: Diagnosis: Pain in right foot-diabetic wound;Peripheral vascular disease, unspecified Presentation: 06/22 11:20 Chief complaint: Patient states: he was sent by his home health nurse to "meet Dr. Taylor ap3 to have his right foot looked at because it's painful. Every time they treat it, it hurts." reports the patient isn't sleeping well due to the pain. Coronavirus screen: At this time, the client does not indicate any symptoms associated with coronavirus-19. Ebola Screen: No symptoms or risks identified at this time. Initial Sepsis Screen: Does the patient meet any 2 criteria? HR > 90 bpm. Does the patient have a suspected source of infection? No. Patient's initial sepsis screen is negative. Risk Assessment: Do you want to hurt yourself or someone else? Patient reports no desire to harm self or others. Onset of symptoms is unknown. 11:20 Method Of Arrival: Wheelchair ap3 11:20 Acuity: JOSE CRUZ 3 ap3 Triage Assessment: 11:23 General: Appears in no apparent distress. Behavior is calm, cooperative, appropriate ap3 for age. Pain: Complains of pain in right foot Pain currently is 8 out of 10 on a pain scale. Pain began gradually. Neuro: Level of Consciousness is awake, alert, obeys commands, Oriented to person, place, time, situation, Speech is normal. Cardiovascular: Patient's skin is warm and dry. Respiratory: Airway is patent Respiratory effort is even, unlabored, Respiratory pattern is regular, symmetrical. Derm: Wound noted right foot Other: dressed wound. Historical: - Allergies: 11: No Known Allergies; ap3 - PMHx: 11: diabetes mellitus; Hypertensive disorder; Myocardial infarction; june 2023; ap3 - PSHx: : cardiac stents; Coronary artery bypass graft; ap3 - Immunization history:: Client reports receiving the 2nd dose of the Covid vaccine, Flu vaccine is not up to date. - Infectious Disease History:: Denies. - Social history:: Smoking status: Patient denies any tobacco usage or history of. Screenin:24 Abuse screen: Denies threats or abuse. Nutritional screening: No deficits noted. ap3 Tuberculosis screening: No symptoms or risk factors identified. 12:12 [facility] ED Fall Risk Assessment (Adult) History of falling in the last 3 months, kj2 including since admission No falls in past 3 months (0 pts) Confusion or Disorientation No (0 pts) Intoxicated or Sedated No (0 pts) Impaired Gait No (0 pts) Mobility Assist Device Used Altered Elimination No (0 pt) Score/Fall Risk Level 0 - 2 = Low Risk Oriented to surroundings. Assessment: 12:00 General: Appears in no apparent distress. Behavior is calm, cooperative. Pain: kj2 Complains of pain in right foot Pain currently is 8 out of 10 on a pain scale. Neuro: Level of Consciousness is awake, alert, obeys commands, Oriented to person, place, time, situation. Cardiovascular: Patient's skin is warm and dry. Respiratory: Airway is patent Respiratory effort is even, unlabored. GI: Abdomen is flat. : No signs and/or symptoms were reported regarding the genitourinary system. 13:00 Reassessment: Patient appears in no apparent distress at this time. Patient and/or kj2 family updated on plan of care and expected duration. Pain level reassessed. Patient is alert, oriented x 3, equal unlabored respirations, skin warm/dry/pink. 13:56 Reassessment: Patient appears in no apparent distress at this time. Patient and/or kj2 family updated on plan of care and expected duration. Pain level reassessed. Patient is alert, oriented x 3, equal unlabored respirations, skin warm/dry/pink. Vital Signs: 11:20 BP 115 / 94; Pulse 103; Resp 18; Temp 98.3; Pulse Ox 100% ; Weight 64.86 kg; Height 5 ap3 ft. 9 in. ; Pain 8/10; 12:18 BP 128 / 85; Pulse 59; Resp 20; Pulse Ox 99% on R/A; kj2 13:00 BP 120 / 59; Pulse 75; Resp 18; Pulse Ox 100% on R/A; kj2 13:57 BP 117 / 53; Pulse 79; Resp 18; Pulse Ox 100% on R/A; kj2 11:20 Body Mass Index 21.12 (64.86 kg, 175.26 cm) ap3 11:20 Pain Scale: Adult ap3 ED Course: 11:10 Patient arrived in ED. mr 11:10 Shantelle Araujo FNP-C [facility]. kb 11:10 Terry Wells MD is Attending Physician. kb 11:22 Triage completed. ap3 11:24 Arm band placed on left wrist. ap3 12:10 Jammie Ledbetter, RN is Primary Nurse. kj2 12:13 Patient has correct armband on for positive identification. Bed in low position. Call kj2 light in reach. Side rails up X 1. Provided Education on: call light. 12:13 No provider procedures requiring assistance completed. kj2 13:02 US LE Artery Uni Ltd In Process Unspecified. EDMS 13:02 US Extremity Venous Unilateral Ltd In Process Unspecified. EDMS 13:20 Foot Right 3 View XRAY In Process Unspecified. EDMS 14:00 Patient did not have IV access during this emergency room visit. kj2 Administered Medications: 12:18 Drug: Hydrocodone-Acetaminophen PO (7.5 mg-325 mg) 1 tabs PO once Route: PO; kj2 14:00 Follow up: Response: No adverse reaction kj2 Medication: 12:13 VIS not applicable for this client. kj2 Outcome: 13:51 Discharge ordered by . kb 14:00 Discharged to home with family, kj2 14:00 Condition: stable 14:00 Discharge instructions given to patient, Instructed on discharge instructions, follow up and referral plans. Demonstrated understanding of 14:12 Patient left the ED. kj2 Signatures: Dispatcher [employer] EDMS Shantelle Araujo FNP-C FNP-Ambreen Billings, Reg Reg mr Justine Ferguson, RN RN ap3 Jammie Ledbetter, SARIKA RN kj2
[2024-06-22 17:15] VITALS: TEMP 98.3
[2024-06-22 17:18] VITALS: O2SAT 100
[2024-06-22 17:20] VITALS: BP 117/53
== END 2024-06-22 14:12 | disposition home or self-care (01) ==
LOC: ER 11:07
DX: E11.51 Type 2 diabetes mellitus with diabetic peripheral angiopathy without gangrene (principal); E11.621 Type 2 diabetes mellitus with foot ulcer; Z95.1 Presence of aortocoronary bypass graft; Z95.818 Presence of other cardiac implants and grafts
CPT/HCPCS: 93926; 93971; 99283

== ENCOUNTER 2024-07-26 10:35 | Inpatient (IN) | payer OTHER ==
[2024-07-26 11:40] LABS: Absolute Eosinophils 0.2 K/uL (0-0.5); Absolute Lymphocytes (CBC) 2.1 K/uL (0.7-4.9); Absolute Monocytes 0.8 K/uL (0.1-1.3); Absolute Neutrophil 10.9 K/uL (1.8-8.0); Basophils % 0.3 % (0-1.3); Eosinophils % 1.2 % (0-4.4); Hematocrit 31.1 % (39.6-49.0); Hemoglobin 10.4 g/dL (13.6-17.9); Lymphocytes % 14.7 % (15.3-44.8); MCH 32.5 pg (27.0-35.0); MCHC 33.3 g/dL (32.0-36.0); MCV 97.5 fL (80-100); MPV 6.8 fL (7.6-11.3); Monocytes % 5.8 % (3.3-12.3); Nucleated Red Blood Cells % 0.1 % (0-0); Platelets 444 thou/uL (152-406); RBC Red Blood Cell Count 3.19 M/uL (4.33-5.43); Red Cell Distribution Width 14.9 % (12.1-15.2)
[2024-07-26 11:59] LABS: PTT, Activated Partial Thromb 31.1 SECONDS (27.2-37.4); Protime INR 1.15
[2024-07-26] MEDS ORDERED: NA CHLORIDE 0.9% 1,000 ML ONE (12:50)
[2024-07-26] MEDS ORDERED: NA CHLORIDE 0.9% 100 ML ONE (12:50)
[2024-07-26] MEDS ORDERED: PIPERACIL/TAZO 3.375 GM VIAL IV ONE (12:50)
[2024-07-26 13:04] LABS: Albumin 3.1 g/dL (3.4-5.0); Albumin/Globulin Ratio 0.7 (1.1-1.8); Bilirubin Total 0.3 mg/dL (0.2-1.0); Globulin 4.4 g/dL (2.3-3.5); Protein, Total 7.5 g/dL (6.4-8.2)
[2024-07-26] MEDS ORDERED: MORPHINE 2 MG/ML SYR ONE (14:02)
--- NOTE | 2024-07-26 14:06 | ER ---
Nurse's Notes [facility] Name: Bon Das Age: 83 yrs Sex: Male : 1940 Arrival Date: 07/26/2024 Time: 10:35 Bed 7 Private MD: Diagnosis: Gangrene of the foot, UTI, early sepsis, hypoglycemia Presentation: 07/26 11:17 Chief complaint: PCP Dr Mcdowell sent reporting low BP 100/54, episodes of low blood jl7 sugar, being treated for UTI, will send urine culture results. Scheduled for right toe amputation on Monday. Coronavirus screen: At this time, the client does not indicate any symptoms associated with coronavirus-19. Ebola Screen: No symptoms or risks identified at this time. Risk Assessment: Do you want to hurt yourself or someone else? Patient reports no desire to harm self or others. Onset of symptoms is unknown. 11:17 Method Of Arrival: Wheelchair jl7 11:17 Acuity: JOSE CRUZ 2 jl7 Triage Assessment: 11:20 General: Appears in no apparent distress. uncomfortable, Behavior is calm, cooperative, jl7 appropriate for age. Pain: Complains of pain in right foot Pain currently is 5 out of 10 on a pain scale. Neuro: Level of Consciousness is awake, alert, obeys commands, Oriented to person, place, time, situation. Historical: - Allergies: 11:20 No Known Allergies; jl7 - PMHx: 11:20 diabetes mellitus; Hypertensive disorder; Myocardial infarction; june 2023; jl7 - PSHx: 11:20 cardiac stents; Coronary artery bypass graft; jl7 - Immunization history:: Adult Immunizations unknown. - Social history:: Smoking status: Patient denies any tobacco usage or history of. Screenin:16 [facility] ED Fall Risk Assessment (Adult) History of falling in the last 3 months, jb4 including since admission No falls in past 3 months (0 pts) Confusion or Disorientation No (0 pts) Intoxicated or Sedated No (0 pts) Impaired Gait Yes (1 pt) Mobility Assist Device Used Yes (1 pt) Altered Elimination Yes (1 pt) Score/Fall Risk Level 3 or more points = High Risk Oriented to surroundings, Maintained a safe environment. Abuse screen: Denies threats or abuse. Nutritional screening: No deficits noted. Tuberculosis screening: No symptoms or risk factors identified. Assessment: 12:00 Reassessment: Patient appears in no apparent distress at this time. Patient and/or jb4 family updated on plan of care and expected duration. Pain level reassessed. Patient is alert, oriented x 3, equal unlabored respirations, skin warm/dry/pink. 13:01 Reassessment: Patient appears in no apparent distress at this time. Patient and/or hb family updated on plan of care and expected duration. Pain level reassessed. Patient is alert, oriented x 3, equal unlabored respirations, skin warm/dry/pink. 14:00 Reassessment: Patient appears in no apparent distress at this time. Patient and/or jb4 family updated on plan of care and expected duration. Pain level reassessed. Patient is alert, oriented x 3, equal unlabored respirations, skin warm/dry/pink. 15:00 Reassessment: Patient appears in no apparent distress at this time. Patient and/or jb4 family updated on plan of care and expected duration. Pain level reassessed. Patient is alert, oriented x 3, equal unlabored respirations, skin warm/dry/pink. 16:00 Reassessment: Patient appears in no apparent distress at this time. Patient and/or jb4 family updated on plan of care and expected duration. Pain level reassessed. Patient is alert, oriented x 3, equal unlabored respirations, skin warm/dry/pink. 17:00 Reassessment: Patient appears in no apparent distress at this time. Patient and/or jb4 family updated on plan of care and expected duration. Pain level reassessed. Patient is alert, oriented x 3, equal unlabored respirations, skin warm/dry/pink. 18:00 Reassessment: Patient appears in no apparent distress at this time. Patient and/or jb4 family updated on plan of care and expected duration. Pain level reassessed. Patient is alert, oriented x 3, equal unlabored respirations, skin warm/dry/pink. Vital Signs: 11:17 BP 128 / 68; Pulse 99; Resp 18; Pulse Ox 100% ; Weight 64 kg; Height 5 ft. 9 in. ; Pain jl7 5/10; 13:00 BP 131 / 59; Pulse 104; Resp 21; Pulse Ox 98% on R/A; hb 14:15 BP 98 / 64; Pulse 105; Resp 19; Pulse Ox 99% on R/A; jb4 15:45 BP 127 / 53; Pulse 98; Resp 22; Pulse Ox 95% on R/A; jb4 17:45 BP 114 / 57; Pulse 90; Resp 20; Pulse Ox 97% on R/A; jb4 18:30 BP 120 / 50; Pulse 100; Resp 20; Pulse Ox 99% on R/A; jb4 11:17 Body Mass Index 20.84 (64.00 kg, 175.26 cm) jl7 11:17 Pain Scale: Adult jl7 ED Course: 10:37 Patient arrived in ED. cj3 10:38 Miranda Peralta MD is Attending Physician. sp3 11:20 Triage completed. jl7 11:20 Arm band placed on right wrist. jl7 11:21 Initial lab(s) drawn, by me, sent to lab. Inserted saline lock: 20 gauge in right ap3 antecubital area, using aseptic technique. Blood collected. Flushed with 10 mL NS. 12:03 EKG done, by ED staff, reviewed by Miranda Peralta MD. ap3 14:04 Emily Knutson MD is Hospitalizing Provider. sp3 16:14 Bon Ruiz RN is Primary Nurse. jb4 19:16 Patient has correct armband on for positive identification. Bed in low position. Call jb4 light in reach. Side rails up X 1. Provided Education on: need for admit. 19:16 No provider procedures requiring assistance completed. Patient admitted, IV remains in jb4 place. Administered Medications: 13:00 Drug: NS 0.9% IV 1000 ml IV at 1 bolus Per protocol; to be given as a bolus over 60 hb minutes Route: IV; Rate: 1 bolus; Site: right forearm; 13:00 Drug: Piperacillin-Tazobactam IVPB 3.375 grams IVPB once over 60 mins; (mix in NS 100 hb mL) Route: IVPB; Infused Over: 60 mins; Site: right forearm; 14:00 Follow up: Response: No adverse reaction; IV Status: Completed infusion; IV Intake: jb4 100ml 14:07 Drug: morphine IVP or IV 2 mg IVP once over 4 mins Route: IVP; Infused Over: 4 mins; jb4 Site: right antecubital; 14:30 Follow up: Response: No adverse reaction; Marked relief of symptoms; Pain is decreased jb4 Point of Care Testing: Blood Glucose: 12:54 Blood Glucose: 98 mg/dL; hb Ranges: Intake: 14:00 IV: 100ml; Total: 100ml. jb4 Outcome: 14:05 Decision to Hospitalize by Provider. sp3 19:16 Discharged to home ambulatory, jb4 19:16 Condition: stable 19:16 Discharge instructions given to patient, Instructed on the need for admit, Demonstrated understanding of instructions, 19:18 Patient left the ED. jb4 Signatures: Nancy Cline RN RN Bon Ruiz RN RN jb4 Ashley Jennings RN RN jl7 Justine Ferguson RN RN ap3 Miranda Peralta MD MD sp3 Purnima Estrada 3
--- NOTE | 2024-07-26 14:06 | EDPHYS ---
Physician Documentation [facility] Name: Bon Das Age: 83 yrs Sex: Male : 1940 Arrival Date: 07/26/2024 Time: 10:35 Bed 7 Private MD: ED Physician Miranda Peralta HPI: 07/26 12:24 This 83 yrs old Male presents to ER via Wheelchair with complaints of Low Blood Sugar, sp3 High Heart Rate, Low Blood Pressure. 12:24 83-year-old male history of diabetes and hypertension and prior [place] presents from Dr. junior [facility]'s office PCP for hypoglycemia, hypotension and ongoing UTI as well as gangrene of the right foot from peripheral vascular disease slated for amputation next week. Due to patient having resistant hypoglycemia for several days with no changes in medications and hypotension/tachycardia in the office today along with generalized weakness, patient is sent here for IV antibiotics and admission. Patient denies fever, headache, neck pain, chest pain, shortness of breath, syncope, vomiting or diarrhea, rash, bleeding or any other signs or symptoms on ROS at this time.. Historical: - Allergies: 11:20 No Known Allergies; jl7 - PMHx: 11:20 diabetes mellitus; Hypertensive disorder; Myocardial infarction; june 2023; jl7 - PSHx: 11:20 cardiac stents; Coronary artery bypass graft; jl7 - Immunization history:: Adult Immunizations unknown. - Social history:: Smoking status: Patient denies any tobacco usage or history of. ROS: 12:26 Eyes: Negative for injury, pain, redness, and discharge, Neck: Negative for injury, sp3 pain, and swelling, Respiratory: Negative for shortness of breath, cough, wheezing, and pleuritic chest pain, Abdomen/GI: Negative for abdominal pain, nausea, vomiting, diarrhea, and constipation, Back: Negative for injury and pain, Neuro: Negative for headache, weakness, numbness, tingling, and seizure, Allergy/Immunology: Negative for hives, rash, and allergies, Hematologic/Lymphatic: Negative for swollen nodes, abnormal bleeding, and unusual bruising, 12:26 All other systems are negative, Exam: 12:28 Constitutional: This is a well developed, well nourished patient who is awake, alert, sp3 and in no acute distress. Head/Face: Normocephalic, atraumatic. Eyes: Pupils equal round and reactive to light, extra-ocular motions intact. Lids and lashes normal. Conjunctiva and sclera are non-icteric and not injected. Cornea within normal limits. Periorbital areas with no swelling, redness, or edema. Neck: Trachea midline, no thyromegaly or masses palpated, and no cervical lymphadenopathy. Supple, full range of motion without nuchal rigidity, or vertebral point tenderness. No Meningismus. Chest/axilla: Normal chest wall appearance and motion. Nontender with no deformity. No lesions are appreciated. Cardiovascular: Regular rate and rhythm with a normal S1 and S2. No gallops, murmurs, or rubs. Normal PMI, no JVD. No pulse deficits. Respiratory: Lungs have equal breath sounds bilaterally, clear to auscultation and percussion. No rales, rhonchi or wheezes noted. No increased work of breathing, no retractions or nasal flaring. Abdomen/GI: Soft, non-tender, with normal bowel sounds. No distension or tympany. No guarding or rebound. No evidence of tenderness throughout. Back: No spinal tenderness. No costovertebral tenderness. Full range of motion. Neuro: Awake and alert, GCS 15, oriented to person, place, time, and situation. Cranial nerves II-XII grossly intact. Motor strength 5/5 in all extremities. Sensory grossly intact. Cerebellar exam normal. Normal gait. Psych: Awake, alert, with orientation to person, place and time. Behavior, mood, and affect are within normal limits. 12:28 ECG was reviewed by the Attending Physician. EKG demonstrates normal sinus rhythm at 97 bpm with normal intervals, normal QRS, normal axis, normal ST/T-segment's without evidence of acute ischemia. Vital Signs: 11:17 BP 128 / 68; Pulse 99; Resp 18; Pulse Ox 100% ; Weight 64 kg; Height 5 ft. 9 in. ; Pain jl7 5/10; 13:00 BP 131 / 59; Pulse 104; Resp 21; Pulse Ox 98% on R/A; hb 14:15 BP 98 / 64; Pulse 105; Resp 19; Pulse Ox 99% on R/A; jb4 15:45 BP 127 / 53; Pulse 98; Resp 22; Pulse Ox 95% on R/A; jb4 17:45 BP 114 / 57; Pulse 90; Resp 20; Pulse Ox 97% on R/A; jb4 18:30 BP 120 / 50; Pulse 100; Resp 20; Pulse Ox 99% on R/A; jb4 11:17 Body Mass Index 20.84 (64.00 kg, 175.26 cm) 7 11:17 Pain Scale: Adult jl7 MDM: 11:06 Medical Screening Exam initiated sp3 12:31 Data reviewed: vital signs, nurses notes, lab test result(s), EKG, radiologic studies. sp3 ED course: 83-year-old male PMH above now with hyperglycemia 48 in the ER and was immediately given orange juice. Vital signs here are normal however patient was tachycardic at 118 at PCP office. Right foot not undressed which is area of gangrene which is known. Will go ahead and change out Schreiber indwelling secondary to it being and since March. Antibiotics also started. Patient will be admitted for observation and continue antibiotics with further intervention as indicated.. 07/26 11:15 Order name: Blood Culture Adult (2) sp3 07/26 11:15 Order name: CBC with Diff; Complete Time: 13:47 sp3 07/26 11:15 Order name: CMP; Complete Time: 13:47 sp3 07/26 11:15 Order name: Lactate w/ 2H reflex if indic.; Complete Time: 13:47 sp3 07/26 11:15 Order name: Protime (+inr); Complete Time: 13:47 sp3 07/26 11:15 Order name: Ptt, Activated; Complete Time: 13:47 sp3 07/26 11:15 Order name: Urinalysis w/ reflexes sp3 07/26 11:15 Order name: Troponin High Sensitivity; Complete Time: 13:47 sp3 07/26 11:23 Order name: Glucose, Ancillary Testing; Complete Time: 13:47 EDMS 07/26 12:54 Order name: Glucose, Ancillary Testing; Complete Time: 13:47 EDMS 07/26 16:14 Order name: Urinalysis w/ reflexes EDMS 07/26 16:14 Order name: CBC with Automated Diff EDMS 07/26 16:14 Order name: CBC with Automated Diff EDMS 07/26 16:14 Order name: Comprehensive Metabolic Panel EDMS 07/26 16:14 Order name: Comprehensive Metabolic Panel EDMS 07/26 16:14 Order name: Blood Culture [facility] 07/26 17:14 Order name: Glucose, Ancillary Testing [facility] 07/26 16:14 Order name: CONS Physician Consult [facility] 07/26 11:15 Order name: Accucheck; Complete Time: 11:21 sp3 07/26 11:15 Order name: Cardiac monitoring; Complete Time: 11: sp3 07/26 11:15 Order name: EKG - Nurse/Tech; Complete Time: 12: 3 07/26 11:15 Order name: IV Saline Lock - Large Bore; Complete Time: 11: sp3 07/26 11:15 Order name: Labs collected and sent; Complete Time: 11:38 3 07/26 11:15 Order name: O2 Per Protocol; Complete Time: : sp3 07/26 11:15 Order name: O2 Sat Monitoring; Complete Time: 11: sp3 07/26 11:15 Order name: Vital Signs; Complete Time: : 3 07/26 11:15 Order name: Abdoul: Change current to new; Complete Time: : 3 07/26 11:15 Order name: PO challenge; Complete Time: 12:02 sp3 Administered Medications: 13:00 Drug: NS 0.9% IV 1000 ml IV at 1 bolus Per protocol; to be given as a bolus over 60 hb minutes Route: IV; Rate: 1 bolus; Site: right forearm; 13:00 Drug: Piperacillin-Tazobactam IVPB 3.375 grams IVPB once over 60 mins; (mix in NS 100 hb mL) Route: IVPB; Infused Over: 60 mins; Site: right forearm; 14:00 Follow up: Response: No adverse reaction; IV Status: Completed infusion; IV Intake: jb4 100ml 14:07 Drug: morphine IVP or IV 2 mg IVP once over 4 mins Route: IVP; Infused Over: 4 mins; jb4 Site: right antecubital; 14:30 Follow up: Response: No adverse reaction; Marked relief of symptoms; Pain is decreased jb4 Point of Care Testing: Blood Glucose: 12:54 Blood Glucose: 98 mg/dL; hb Ranges: Critical Glucose Levels:Adult <50 mg/dl or >400 mg/dl <40 mg/dl or >180 mg/dl Disposition Summary: 07/26/24 14:05 Hospitalization Ordered Notes: Hospitalization Status: Inpatient Admission sp3 Provider: Emily Knutson sp3 Location: Telemetry/MedSurg (observation) sp3 Condition: Stable sp3 Problem: an acute exacerbation sp3 Symptoms: have worsened sp3 Bed/Room Type: Standard sp3 Room Assignment: 231(07/26/24 17:46) ty Diagnosis - Gangrene of the foot, UTI, early sepsis, hypoglycemia sp3 Forms: - Medication Reconciliation Form sp3 - SBAR form sp3 - Leadership Thank You Letter sp3 Signatures: Dispatcher [employer] EDMS Nancy Cline, RN RN hb Bon Ruiz, RN RN jb4 Ashley Jennings RN RN jl7 Miranda Peralta MD MD sp3 Saad Cardoso ty Corrections: (The following items were deleted from the chart) 11:16 11:16 BLOOD CULTURE*+BA.LAB.BRZ ordered. EDMS EDMS 11:16 11:16 CBC+H.LAB.BRZ ordered. EDMS EDMS 11:16 11:16 COMPREHENSIVE METABOLIC PANEL+C.LAB.BRZ ordered. EDMS EDMS 11:16 11:16 LACTATE+C.LAB.BRZ ordered. EDMS EDMS 11:16 11:16 PROTIME (+INR)+COAG.LAB.BRZ ordered. EDMS EDMS 11:16 11:16 PTT, ACTIVATED+COAG.LAB.BRZ ordered. EDMS EDMS 11:16 11:16 Urinalysis+U.LAB.BRZ ordered. EDMS EDMS 11:16 11:16 Troponin High Sensitivity+C.LAB.BRZ ordered. EDMS EDMS 17:46 14:05 sp3 ty
--- NOTE | 2024-07-26 16:00 | P.HP ---
Certification for Inpatient Patient admitted to: Inpatient With expected LOS: >2 Midnights Practitioner: I am a practitioner with admitting privileges, knowledge of patient current condition, hospital course, and medical plan of care. Services: Services provided to patient in accordance with Admission requirements found in Title 42 Section 412.3 of the Code of Federal Regulations Patient History Date of Service: 07/26/24 Reason for admission: sepsis, diabetic foot infection History of Present Illness: 83-year-old male with history of diabetes, diabetic foot infection gangrene of right foot, peripheral vascular disease scheduled for amputation of toe next week. Presented to ER from PCP office for hypoglycemia hypotension and concern for UTI. On arrival patient was noted to be tachycardic. Also hypoglycemia. He reports not feeling well. He states he had generalized weakness. He denies any recent fevers, chest pain, cough or shortness of breath. Allergies No Known Allergies Allergy (Verified 02/03/23 03:17) Home Medications: Losartan Potassium 50 mg PO DAILY 03/10/15 Metformin HCl [Glucophage] 1,000 mg PO BID 03/10/15 Metoprolol Succinate [Toprol Xl] 50 mg PO DAILY 03/10/15 Simvastatin 40 mg PO DAILY 03/10/15 Terazosin HCl [Hytrin*] 10 mg PO BEDTIME 03/10/15 Glimepiride 4 mg PO DAILY 02/03/23 Magic Mouthwash [Magic Mouthwash*] 15 ml PO QIDP PRN #120 ml 02/05/23 levoFLOXacin [Levaquin] 500 mg PO DAILY #10 tab 02/05/23 - Past Medical/Surgical History Diabetic: No -: htn -: niddm -: bph -: high cholesterol -: chest pain -: heart blockage -: right kidney surg - repair - Family History Father -: Cancer Mother -: Diabetes, Stroke - Social History Alcohol use: Yes CD- Drugs: No Caffeine use: Yes Review of Systems 10-point ROS is otherwise unremarkable General: Weakness, Malaise Physical Examination - Physical Exam General: Disheveled HEENT: Other (left ear previous resection) Respiratory: Clear to auscultation bilaterally, Normal air movement Cardiovascular: Other (tachycardic) Gastrointestinal: Soft and benign, Non-distended Musculoskeletal: Other (right foot covered ) Neurological: Normal speech - Studies Laboratory Data (last 24 hrs) 07/26/24 07/26/24 07/26/24 11:29 11:29 11:29 WBC 14.00 H Hgb 10.4 L Hct 31.1 L Plt Count 444 H PT 13.0 INR 1.15 APTT 31.1 Sodium 132 L Potassium 5.0 BUN 60 H Creatinine 2.36 H Glucose 50 L* Total Bilirubin 0.3 AST 16 ALT 23 Alkaline Phosphatase 147 H Assessment and Plan - Problems (Diagnosis) (1) Foot infection Current Visit: Yes Status: Acute (2) Hypoglycemia Current Visit: Yes Status: Acute (3) Renal failure Current Visit: No Status: Acute (4) Diabetes Current Visit: No Status: Chronic - Plan 83-year-old male presents from PCP office for complaint of not feeling well tachycardia hypotension and low blood sugar. Sepsis Right foot infection/gangrene NIDDM reported UTI PVD Plan: 1. admit to med surg with telemetry 2. IVF, Ceftiaxone 3. surgery consult 4. Hold oral hypoglycemics 5. followup cultures 6. lssi, fsbs - Advance Directives Does patient have a Living Will: No Does patient have a Durable POA for Healthcare: No
[2024-07-26] MEDS ORDERED: GLUCAGON 1 MG/VIAL IM PRN (16:13)
[2024-07-26] MEDS: INSULIN REGULAR (HUMAN) 100 UNIT/ML SQ SCH (16:30)
[2024-07-26] MEDS: NA CHLORIDE 0.9% 1,000 ML IV SCH (17:00)
[2024-07-26] MEDS ORDERED: D5 0.45 NS 1,000 ML IV ONE (17:14)
[2024-07-26 17:25] LABS: Specific Gravity 1.014 (1.005-1.030); Sqamous Epithelial None Seen /HPF (None Seen); Urine Bacteria None Seen /HPF (<20); Urine Bilirubin NEGATIVE (Negative); Urine Blood 3+ (OVER) (Negative); Urine Clarity Extremely Turbid (Clear); Urine Color Light-Orange (Yellow); Urine Crystals Unidentified Few /HPF (None Seen); Urine Culture Reflex Order REFLEXED; Urine Glucose 4+ (Negative); Urine Ketones NEGATIVE (Negative); Urine Microscopic Reflex YN ORDER UMIC; Urine Nitrite NEGATIVE (Negative); Urine Protein 1+ (Negative); Urine RBC >50 /HPF (None Seen); Urine Urobilinogen Normal (Normal); Urine WBC >50 /HPF (<5); Urine WBC Clump Moderate /HPF (None Seen); Urine Yeast (Budding) Moderate /HPF (None Seen); Urine pH 5.5 (5.0-7.0)
[2024-07-26] MEDS: D5 0.45 NS 1,000 ML IV SCH (17:37)
[2024-07-26] MEDS: HYDROMORPHONE HCL 1 MG/ML INJ IV ONE (21:15)
[2024-07-26 22:55] VITALS: BMI 20.8
[2024-07-27] MEDS: HYDROMORPHONE HCL 1 MG/ML INJ IV ONE (04:50)
[2024-07-27 07:25] LABS: Absolute Basophils 0.1 K/uL (0-0.5); Absolute Eosinophils 0.2 K/uL (0-0.5); Absolute Lymphocytes (CBC) 1.6 K/uL (0.7-4.9); Absolute Monocytes 0.6 K/uL (0.1-1.3); Absolute Neutrophil 7.1 K/uL (1.8-8.0); Basophils % 0.8 % (0-1.3); Eosinophils % 1.9 % (0-4.4); Hematocrit 26.6 % (39.6-49.0); Hemoglobin 8.9 g/dL (13.6-17.9); Lymphocytes % 16.4 % (15.3-44.8); MCH 32.7 pg (27.0-35.0); MCHC 33.3 g/dL (32.0-36.0); MCV 98.1 fL (80-100); MPV 6.4 fL (7.6-11.3); Monocytes % 6.2 % (3.3-12.3); Neutrophils % 74.7 % (41.7-73.7); Platelets 324 thou/uL (152-406); RBC Red Blood Cell Count 2.71 M/uL (4.33-5.43); Red Cell Distribution Width 14.7 % (12.1-15.2)
[2024-07-27] MEDS: D10W 125 ML IV PRN (07:39)
[2024-07-27 07:41] LABS: Albumin 2.7 g/dL (3.4-5.0); Albumin/Globulin Ratio 0.8 (1.1-1.8); Anion Gap 9.8 mEq/L (5.0-15.0); Bilirubin Total 0.3 mg/dL (0.2-1.0); Globulin 3.6 g/dL (2.3-3.5); Potassium 4.8 mEq/L (3.5-5.1); Protein, Total 6.3 g/dL (6.4-8.2)
[2024-07-27] MEDS: CEFTRIAXONE 1,000 MG in NA CHLORIDE 0.9% 50 ML IVPB SCH (08:10)
[2024-07-27] MEDS: ENOXAPARIN 30 MG/0.3 ML SQ SCH (08:11)
[2024-07-27] MEDS: CEFEPIME 1 GM in NA CHLORIDE 0.9% 100 ML IV SCH (09:09)
[2024-07-27] MEDS: D5 0.45 NS 1,000 ML IV SCH (09:10)
[2024-07-27] MEDS: VANCOMYCIN 1 GM in NA CHLORIDE 0.9% 250 ML IVPB SCH (10:33)
--- NOTE | 2024-07-27 13:11 | CON ---
Date of Consultation: 07/27/2024 Brief History Of Present Illness: The patient is an 83-year-old man, known to me from an outpatient scenario whereby he has had a chronic wound of his right foot with dry gangrenous changes to the four th toe and infection of the webspace, which was treated as an outpatient; however, he had significant peripheral arterial disease and as such, he was sent to an endovascular specialist to attempt revasc ularization of this prior to any surgical intervention. He had unsuccessful ability to re-perfuse th is area and as such, the gangrenous changes continued to progress and get worse in that toe area. As such, I deemed him appropriate for operative intervention. He was scheduled for surgery for amputat ion of this toe and debridement of the area this week. However, he noted that he started developing hypoglycemia and felt weak and tired. As such, there was some concern for urinary tract infection an d hypotension was noted as well. He came to the emergency room with the above-stated issues. He had some tachycardia and hypoglycemia, which was noted in his primary medical doctor's office, which was the nidus for sending him to the emergency room for formal evaluation. He responded well to treatme nt in the emergency room with normalization of his blood pressure, resolution of his tachycardia with IV hydration, and he was noted to have a significant urinary tract infection. He has improved at th is point and is ready to discuss surgical intervention after his medical comorbid conditions are ruma ged and optimized in preparation for surgery. Past Medical History: Diabetes, diabetic foot infection, gangrenous changes to the right foot, perip heral vascular disease/peripheral arterial disease, BPH, high cholesterol, history of chest pain, cor onary artery disease. Past Surgical History: Includes kidney surgery of uncertain etiology. Allergies: NO KNOWN DRUG ALLERGIES. Home Medications: Include losartan, metformin, Toprol, simvastatin, Hytrin, , Magic Mouthw khadijah, Levaquin on several occasions. Family History: Significant for cancer in his father. Diabetes and stroke in his mother. Social History: He drinks alcohol only socially. Denies recreational drug use. Review of Systems: Ten-point review of systems other than above, denies. Physical Examination: General: At the time of my examination, he is awake, alert, and oriented. Psychiatric: He is appropriate, conversive. HEENT: He is normocephalic. Sclerae icteric. Mucous moist. Oropharynx clear. Neck: Supple without JVD. Chest: Normal to expansion and excursion. Cardiovascular: Regular rate and rhythm. Pulmonary: Clear to auscultation bilaterally. Abdomen: Soft. Extremities: Focused examination of the extremities shows a right fourth toe dry gangrene. There is no cellulitis or other changes in the area. There is a small wound in the area, which is open and d ry as well in the webspace. No other acute skin changes are appreciated. Laboratory Data: He had a laboratory exam, which revealed a white blood cell count of 14.0, hemoglob in 10.4, hematocrit of 31.1, platelet count was 444 on admission. PT 13.0, INR 1.15, PTT is 31.1. S odium 132, potassium 5.0, chloride 105, carbon dioxide 19, BUN 60, creatinine was 2.3, glucose was 50 on admission. Lactic acid was 1.0. Total bilirubin 0.3. AST 16, ALT 23, alkaline phosphatase 147. Urinalysis showed approximately 500 leukocyte esterase, greater than 50 red blood cells, white bloo d cells greater than 50, moderate white blood cell clumps, 3+ blood, 4+ glucose. The clarity was ext remely turbid with a light orange appearance. Yeast was moderate with budding noted as well in the u rinalysis. Assessment And Plan: This is an 83-year-old male who comes in with multiple medical issues, includin g a significant urinary tract infection, hypoglycemia, dehydration, and a dry gangrene of the right f ourth toe. 1. Continue medical management. 2. IV fluid hydration and medical management as above, medical comorbid conditions with antibiotics, resolution/management of hypoglycemia. 3. I have explained the risks, benefits, and alternatives of amputation of the fourth toe and debride ment of this foot wound including, but not limited to, bleeding, infection, damage to surrounding tis sues, need for further operation and procedures. The patient displayed understanding of the above stated plan and agreed to proceed as indicated. JAS/JAMIEL Voice ID: [id number] Report ID: [id number]
--- NOTE | 2024-07-27 13:12 | P.PN ---
Subjective Date of Service: 07/27/24 Chief Complaint: sepsis, diabetic foot infection Subjective: No chest pain or shortness of breath. No nausea or vomiting. No abdominal pain. No obvious bleeding. Looks comfortable in the bed. Complaining of mild foot pain. Objective: General appearance: Alert and comfortable CVS: Normal S1 and S2 Lungs: Clear to auscultation bilaterally Abdomen: Soft, bowel sounds present, no tenderness Extremities: No lower extremity edema. Right foot has dressing. Physical Examination - Vital Signs Temperature: 97.8 F Blood Pressure: 114/58 Pulse: 93 Respirations: 16 Pulse Ox (%): 98 - Studies Laboratory Data (last 24 hrs) 07/26/24 11:29 Sodium 132 L Potassium 5.0 BUN 60 H Creatinine 2.36 H Glucose 50 L* Total Bilirubin 0.3 AST 16 ALT 23 Alkaline Phosphatase 147 H Assessment And Plan - Plan 83-year-old male presents from PCP office for complaint of not feeling well tachycardia hypotension and low blood sugar. 1. Sepsis with Right foot infection/gangrene: Broad-spectrum antibiotics, blood pressure is still soft, will give a liter bolus, continue maintenance fluids. -Discussed with surgical team, plan for intervention next week. 2. DM 2: Monitor sugars closely, continue D5 fluids due to hypoglycemia. 3. UTI: Continue antibiotics, follow-up on cultures. 4. PVD: Continue Plavix and statin 5. Chronic anemia: Monitor closely. 6. CHANELLE on CKD 3B: Monitor closely with hydration. Plan discussed with the patient and surgical attending.
[2024-07-27] MEDS: CLOPIDOGREL 75 MG TABLET PO SCH (13:43)
[2024-07-27] MEDS: NA CHLORIDE 0.9% 1,000 ML IV ONE (13:44)
[2024-07-27] MEDS: ATORVASTATIN 40 MG TAB PO SCH (20:45)
[2024-07-28 07:22] LABS: Absolute Eosinophils 0.2 K/uL (0-0.5); Absolute Lymphocytes (CBC) 1.3 K/uL (0.7-4.9); Absolute Monocytes 0.6 K/uL (0.1-1.3); Absolute Neutrophil 6.3 K/uL (1.8-8.0); Basophils % 0.6 % (0-1.3); Eosinophils % 2.8 % (0-4.4); Hematocrit 26.4 % (39.6-49.0); Lymphocytes % 15.5 % (15.3-44.8); MCH 32.8 pg (27.0-35.0); MCHC 33.9 g/dL (32.0-36.0); MCV 96.9 fL (80-100); MPV 6.7 fL (7.6-11.3); Monocytes % 7.3 % (3.3-12.3); Neutrophils % 73.8 % (41.7-73.7); Platelets 255 thou/uL (152-406); RBC Red Blood Cell Count 2.73 M/uL (4.33-5.43); Red Cell Distribution Width 14.6 % (12.1-15.2)
[2024-07-28 07:30] LABS: Anion Gap 8.9 mEq/L (5.0-15.0); Potassium 4.9 mEq/L (3.5-5.1)
--- NOTE | 2024-07-28 12:13 | P.PN ---
Subjective Date of Service: 07/28/24 Chief Complaint: sepsis, diabetic foot infection Subjective: No chest pain or shortness of breath. No nausea or vomiting. No abdominal pain. No obvious bleeding. Looks comfortable in the bed. Complaining of mild foot pain. Objective: General appearance: Alert and comfortable CVS: Normal S1 and S2 Lungs: Clear to auscultation bilaterally Abdomen: Soft, bowel sounds present, no tenderness Extremities: No lower extremity edema. Right foot has dressing. Physical Examination - Vital Signs Temperature: 97.4 F Blood Pressure: 127/63 Pulse: 99 Respirations: 18 Pulse Ox (%): 99 Assessment And Plan - Plan 83-year-old male presents from PCP office for complaint of not feeling well tachycardia hypotension and low blood sugar. Found to have foot infection, started on antibiotics, surgery was consulted, plan for intervention tomorrow or day after tomorrow. 1. Sepsis with Right foot infection/gangrene: on Broad-spectrum antibiotics, vitals better today, continue fluids and antibiotics -Discussed with surgical team, plan for intervention next week. 2. DM 2: Monitor sugars closely, continue D5 fluids due to hypoglycemia. 3. UTI: Continue antibiotics, follow-up on cultures. 4. PVD: Continue Plavix and statin 5. Chronic anemia: Monitor closely. 6. CHANELLE on CKD 3B: improing, monitor closely with hydration. Plan discussed with the patient and answered all questions
[2024-07-28] MEDS: METOPROLOL XL 25 MG TAB PO SCH (12:48)
[2024-07-28] MEDS: SACUBITRIL/VALSARTAN 24/26 MG TAB PO SCH (20:47)
[2024-07-29] MEDS: ACETAMINOPHEN 500 MG TAB PO PRN (02:05)
[2024-07-29 04:50] LABS: Absolute Basophils 0.1 K/uL (0-0.5); Absolute Eosinophils 0.3 K/uL (0-0.5); Absolute Lymphocytes (CBC) 1.6 K/uL (0.7-4.9); Absolute Monocytes 0.7 K/uL (0.1-1.3); Absolute Neutrophil 6.9 K/uL (1.8-8.0); Hemoglobin 9.2 g/dL (13.6-17.9); Lymphocytes % 16.4 % (15.3-44.8); MCH 32.2 pg (27.0-35.0); MCHC 32.9 g/dL (32.0-36.0); MCV 97.7 fL (80-100); MPV 6.5 fL (7.6-11.3); Neutrophils % 72.6 % (41.7-73.7); Platelets 244 thou/uL (152-406); RBC Red Blood Cell Count 2.87 M/uL (4.33-5.43); Red Cell Distribution Width 14.5 % (12.1-15.2)
[2024-07-29 05:04] LABS: Anion Gap 9.5 mEq/L (5.0-15.0); Potassium 5.5 mEq/L (3.5-5.1)
--- NOTE | 2024-07-29 11:29 | EKG ---
Test Date: 2024-07-26 Test Time: 11:57:07 Foaming Machine Operator: ALP MEASUREMENT RESULTS: Intervals: Rate: 97 CA: 194 QRSD: 88 QT: 338 QTc: 429 Mclean: P: 83 CA: 194 QRS: 26 T: 63 INTERPRETIVE STATEMENTS: Normal sinus rhythm Normal ECG Compared to ECG 11/16/2023 12:20:14 No significant changes Electronically Signed On 07-29-24 11:22:14 CDT by Jewel Barnes
[2024-07-29] MEDS: NA CHLORIDE 0.9% 1,000 ML ONE (13:53)
[2024-07-29] MEDS: LIDOCAINE HCL/EPINEPHRINE 20 ML MDV ONE (15:02)
--- NOTE | 2024-07-29 15:07 | CON ---
History Of Present Illness: This is an 83-year-old male. I was consulted to evaluate the patient fo r right foot infection and gangrene, urinary tract infection. The patient is admitted for evaluation of gangrenous changes to his right fourth toe. Has significant past medical history of diabetes hank litus. Currently on IV antibiotics, vancomycin and cefepime. The patient denies any headache, nause a, vomiting, chest pain, abdominal pain, constipation, or diarrhea. Past Medical History: As per HPI. Social History: Nonsmoker, nondrinker. Family History: Noncontributory. Medications: Vancomycin and cefepime. See MARs for other medications. Allergies: NO KNOWN DRUG ALLERGIES. Review of Systems: A 10-point review was performed. Physical Examination: General: This is an 83-year-old male, lying in bed, not in any acute cardiopulmonary distress. Vital Signs: Temperature 97, pulse 93, respirations 16, blood pressure 103/90. HEENT: Unremarkable. Neck: Supple. Lungs: Basal crackles. Heart: S1, S2. Regular. Abdomen: Soft, nontender. Bowel sounds present. Extremities: Right foot with fourth toe gangrenous changes. Laboratory Data: Shows WBC 9.5, down from 14; hemoglobin 9.2; platelets 244. Chemistry shows BUN of 32, creatinine 1.2. Blood sugar is 173. Assessment And Plan: This is an 83-year-old male with a significant history of diabetes mellitus, co leandra in with right foot fourth toe gangrenous changes and urosepsis. The patient is currently on van comycin and cefepime, doing well. We will continue current treatment. He is going to get surgical a mputation of fourth toe. Wound care per surgical team. Continue antibiotics for 7 days. Can be swi tched to oral on discharge. Manage sugar to keep fasting blood sugar between 100 to 150 and A1c between 6 and 7. Continue wound care and supportive care and monitor signs of infection with WBC and fever trends. Thank you Dr. Wilkinson for consult. NF/MODL Voice ID: [id number] Report ID: [id number]
[2024-07-29] MEDS ORDERED: ONDANSETRON 4 MG/2 ML VIAL ONE (15:15)
[2024-07-29] MEDS ORDERED: FENTANYL CITR 100 MCG/2 ML ONE (15:16)
[2024-07-29] MEDS ORDERED: propofoL 200 MG/20 ML VIAL IV ONE (15:16)
--- NOTE | 2024-07-29 16:03 | P.OP ---
Preoperative diagnosis: Dry Gangrene of 4th Toe of RIGHT Foot Postoperative diagnosis: Dry Gangrene of 4th Toe of RIGHT Foot Primary procedure: Amputation of 4th Toe of RIGHT Foot Anesthesia: GETA + Local Estimated blood loss: <1cc Specimen: 4th toe of LEFT foot to MT joint Findings: Dry Gangrene of 4th Toe of RIGHT Foot Complications: None Transferred to: Recovery Room Condition: Good
[2024-07-29] MEDS: D5W 1,000 ML with NA BICARB 8.4% 100 MEQ IV SCH (17:30)
[2024-07-29] MEDS: CEFEPIME 1 GM in NA CHLORIDE 0.9% 100 ML IV SCH (20:25)
[2024-07-29] MEDS: HYDROCODONE/APAP 5/325 MG TAB PO PRN (20:40)
--- NOTE | 2024-07-29 20:57 | OP ---
Date of Procedure: 07/29/2024 Surgeon: Brandon Vera MD, Preoperative Diagnosis: Dry gangrene of the fourth toe of the right foot. Postoperative Diagnosis: Dry gangrene of the fourth toe of the right foot. Procedure Performed: Amputation of the fourth toe of the right foot to the metatarsophalangeal joint . Anesthesia: General endotracheal plus local with 1% lidocaine. Estimated Blood Loss: Less than 1 cc. Specimens: Fourth toe of the foot to the metatarsophalangeal joint. Findings: Dry gangrene of fourth toe of the right foot. Complications: None. Disposition: The patient transferred to recovery room in good condition. Procedure In Detail: After informed consent was obtained, patient was brought to the operating room, prepped and draped in the usual sterile fashion. After adequate anesthesia was achieved, I anesthe tized an area around the fourth toe of the right foot down to subcutaneous tissues using a 15 blade d own to circumferentially dissecting out an area of abnormal tissue with the ischemic changes includin g dry gangrenous changes to the fourth toe. This was taken down into the subcutaneous tissue plane. There was minimal bleeding from the area. Electrocautery was used to dissect down to the plane to t he metatarsophalangeal joint. This was removed with combination of electrocautery and sharp dissecti on ultimately sending the specimen off for pathologic examination. At this point, the area was copio usly irrigated, partially reapproximated using 2-0 nylon suture and I packed the medial aspect near t he fifth digit where there was an opening with iodoform packing of 0.25 inch size. A sterile dressin g was placed over top. The patient tolerated the procedure without incident or complication and titus sferred to PACU in good condition. All counts were correct at the end of the case. TK/MODL Voice ID: [id number] Report ID: [id number]
[2024-07-30 05:36] LABS: Absolute Basophils 0.1 K/uL (0-0.5); Absolute Eosinophils 0.3 K/uL (0-0.5); Absolute Lymphocytes (CBC) 1.4 K/uL (0.7-4.9); Absolute Monocytes 0.8 K/uL (0.1-1.3); Absolute Neutrophil 5.1 K/uL (1.8-8.0); Basophils % 0.7 % (0-1.3); Eosinophils % 4.5 % (0-4.4); Hemoglobin 8.5 g/dL (13.6-17.9); Lymphocytes % 18.5 % (15.3-44.8); MCH 32.9 pg (27.0-35.0); MCHC 34.2 g/dL (32.0-36.0); MCV 96.1 fL (80-100); Monocytes % 10.3 % (3.3-12.3); Platelets 218 thou/uL (152-406); Red Cell Distribution Width 14.1 % (12.1-15.2)
[2024-07-30 05:45] LABS: Anion Gap 7.5 mEq/L (5.0-15.0); Potassium 4.5 mEq/L (3.5-5.1)
[2024-07-30] MEDS: ENOXAPARIN 40 MG/0.4 ML SQ SCH (09:18)
--- NOTE | 2024-07-30 12:28 | PN ---
Subjective: The patient lying in bed. No new acute event. Chart reviewed. Objective: Vital Signs: Reviewed. Lungs: Basal crackles. Heart: S1, S2. Regular. Abdomen: Soft, nontender. Bowel sounds present. Extremities: No edema. Status post surgical amputation of fourth toe. The patient is doing well. Assessment And Plan: Diabetes mellitus. Urosepsis. Consider stopping vancomycin and cefepime and switching patient to p.o. Levaquin for 5 more days. Wo und care per surgical team. We will follow the patient as needed. NF/MODL Voice ID: [id number] Report ID: [id number]
[2024-07-30] MEDS: levoFLOXacin 750 MG TAB PO SCH (17:05)
[2024-07-31 04:54] LABS: Absolute Basophils 0.1 K/uL (0-0.5); Absolute Eosinophils 0.3 K/uL (0-0.5); Absolute Lymphocytes (CBC) 1.3 K/uL (0.7-4.9); Absolute Monocytes 0.7 K/uL (0.1-1.3); Absolute Neutrophil 6.4 K/uL (1.8-8.0); Basophils % 0.6 % (0-1.3); Eosinophils % 3.9 % (0-4.4); Hematocrit 26.1 % (39.6-49.0); Hemoglobin 8.9 g/dL (13.6-17.9); Lymphocytes % 15.2 % (15.3-44.8); MCH 32.9 pg (27.0-35.0); MCV 96.6 fL (80-100); MPV 7.1 fL (7.6-11.3); Monocytes % 7.6 % (3.3-12.3); Neutrophils % 72.7 % (41.7-73.7); Platelets 228 thou/uL (152-406); Red Cell Distribution Width 14.1 % (12.1-15.2)
[2024-07-31 05:01] LABS: Anion Gap 11.6 mEq/L (5.0-15.0); Potassium 4.6 mEq/L (3.5-5.1)
[2024-07-31 12:15] VITALS: O2SAT 100
[2024-07-31 12:49] VITALS: BP 126/57; TEMP 98.1
--- NOTE | 2024-07-31 19:29 | P.PN ---
Date of Service: 07/31/24 Subjective: The patient lying in bed. No new acute event. denied any concern. Chart reviewed. Objective: Vital Signs: Reviewed. Temp Pulse Resp BP Pulse Ox 98.1 F 88 20 126/57 L 100 07/31/24 12:00 07/31/24 12:00 07/31/24 12:00 07/31/24 12:00 07/31/24 12:00 Neuro: aox 3 Lungs: Basal crackles. Heart: S1, S2. Regular. Abdomen: Soft, nontender. Bowel sounds present. Extremities: No edema. Status post surgical amputation of fourth toe. labs: wbc 8.7,platelet 228, bun 30, creatinine 1.42 07/27/24 blood culture negative Assessment And Plan: . Urosepsis. Consider stopping vancomycin and cefepime and switching patient to p.o. Levaquin for 5 more days. Wound care per surgical team. We will follow the patient as needed. Diabetes mellitus case round and in agreement with Dr ferrara
--- NOTE | 2024-08-08 13:01 | P.PN ---
Date of Service: 07/29/24 Subjective patient with what appears to be osteomyelitis; continue with IV antibiotics and pain control. Surgical debridement. Physical Examination - Physical Exam Vitals: Reviewed General: Disheveled HEENT: Other (left ear previous resection) Respiratory: Clear to auscultation bilaterally, Normal air movement Cardiovascular: Other (tachycardic) Gastrointestinal: Soft and benign, Non-distended Musculoskeletal: Other (right foot covered ) Neurological: Normal speech Assessment and Plan - Problems (Diagnosis) (1) Foot infection Current Visit: Yes Status: Acute (2) Hypoglycemia Current Visit: Yes Status: Acute (3) Renal failure Current Visit: No Status: Acute (4) Diabetes Current Visit: No Status: Chronic - Plan 1. Right foot infection; diabetic foot ulcer with possible osteomyelitis 2. Type 2 diabetes 3. Diabetic nephropathy 4. Chronic kidney disease 5. Hypoglycemia Plan: 1. admit to med surg with telemetry 2. IVF, Ceftiaxone 3. surgery consult appreciated 4. Hold oral hypoglycemics 5. followup cultures 6. SSI, fsbs - Advance Directives Does patient have a Living Will: No Does patient have a Durable POA for Healthcare: No
--- NOTE | 2024-08-08 13:04 | P.PN ---
Date of Service: 07/30/24 Subjective Patient no evidence for infection on imaging for surgery. Will recommend oral antibiotics. Patient to be followed by General surgery as an outpatient or home health helping. Physical Examination - Physical Exam Vitals: Reviewed General: Disheveled HEENT: Other (left ear previous resection) Respiratory: Clear to auscultation bilaterally, Normal air movement Cardiovascular: regular rate and rhythm with no murmurs Gastrointestinal: Soft and benign, Non-distended Musculoskeletal: diabetic foot wound with dressing intact Neurological: No focal deficits Assessment and Plan - Problems (Diagnosis) (1) Foot infection Current Visit: Yes Status: Acute (2) Hypoglycemia Current Visit: Yes Status: Acute (3) Renal failure Current Visit: No Status: Acute (4) Diabetes Current Visit: No Status: Chronic - Plan 1. Right foot infection; diabetic foot ulcer 2. Type 2 diabetes 3. Diabetic nephropathy 4. Chronic kidney disease 5. Hypoglycemia Plan: 1. needed IV antibiotics 2. continue with wound care 3. surgery consult appreciated 4. Hold oral hypoglycemics 5. followup cultures 6. SSI, fsbs - Advance Directives Does patient have a Living Will: No Does patient have a Durable POA for Healthcare: No
--- NOTE | 2024-08-08 13:05 | P.DS ---
Discharge Date: 07/31/24 Disposition: ROUTINE DISCHARGE Discharge Condition: GOOD Reason for Admission: sepsis, diabetic foot infection Brief History of Present Illness: 83-year-old male with history of diabetes, diabetic foot infection gangrene of right foot, peripheral vascular disease scheduled for amputation of toe next week. Presented to ER from PCP office for hypoglycemia hypotension and concern for UTI. On arrival patient was noted to be tachycardic. Also hypoglycemia. He reports not feeling well. He states he had generalized weakness. He denies any recent fevers, chest pain, cough or shortness of breath. Hospital Course: patient was treated with antibiotics and clinically doing well. Patient was treated surgical debridement and amputation. At this time, patient is stable for discharge with outpatient follow-up. Vital Signs/Physical Exam: Temp Pulse Resp BP Pulse Ox 98.1 F 88 20 126/57 L 100 07/31/24 12:00 07/31/24 12:00 07/31/24 12:00 07/31/24 12:00 07/31/24 12:00 General: Alert, In no apparent distress, Oriented x3 Laboratory Data at Discharge: WBC 8.70 thou/uL (4.3-10.9) 07/31/24 04:20 Hgb 8.9 g/dL (13.6-17.9) L 07/31/24 04:20 Hct 26.1 % (39.6-49.0) L 07/31/24 04:20 Plt Count 228 thou/uL (152-406) 07/31/24 04:20 PT 13.0 SECONDS (10-13.0) 07/26/24 11:29 INR 1.15 07/26/24 11:29 APTT 31.1 SECONDS (27.2-37.4) 07/26/24 11:29 Sodium 135 mEq/L (136-145) L 07/31/24 04:20 Potassium 4.6 mEq/L (3.5-5.1) 07/31/24 04:20 BUN 30 mg/dL (7-18) H 07/31/24 04:20 Creatinine 1.42 mg/dL (0.70-1.30) H 07/31/24 04:20 Glucose 124 mg/dL (74-106) H 07/31/24 04:20 Total Bilirubin 0.3 mg/dL (0.2-1.0) 07/27/24 07:05 AST 17 U/L (15-37) 07/27/24 07:05 ALT 18 U/L (16-61) 07/27/24 07:05 Alkaline Phosphatase 116 U/L (45-117) D 07/27/24 07:05 Home Medications: Glimepiride 4 mg PO DAILY 02/03/23 Ascorbic Acid [Vitamin C] 100 mg PO SEECOM 07/27/24 Atorvastatin Calcium [Lipitor] 80 mg PO BEDTIME 07/27/24 Clopidogrel Bisulfate [Plavix] 75 mg PO DAILY 07/27/24 Empagliflozin [Jardiance] 25 mg PO DAILY 07/27/24 Evolocumab [Repatha Sureclick] 140 mg SQ SEECOM 07/27/24 Ferrous Sulfate [Ferrous Sulfate*] 325 mg PO SEECOM 07/27/24 Finasteride 5 mg PO DAILY 07/27/24 Furosemide 20 mg PO DAILY 07/27/24 Insulin Aspart [Novolog Flexpen] 20 unit SQ BEDTIME 07/27/24 Insulin Degludec [Tresiba Flextouch U-200] 0 units SQ SEECOM 07/27/24 Insulin Glargine,Hum.rec.anlog [Toujeo Max Solostar] 0 units SQ SEECOM 07/27/24 Ipratropium Freedom 2 spray NS BID 07/27/24 Metoprolol Succinate [Toprol Xl] 25 mg PO DAILY 07/27/24 Nitroglycerin 0.4 mg SL 1X 07/27/24 Ondansetron [Ondansetron Odt] 8 mg PO Q8HP PRN 07/27/24 Sacubitril/Valsartan [Entresto 24 mg-26 mg Tablet] 1 each PO BID 07/27/24 Spironolactone [Aldactone*] 1 tab PO DAILY 07/27/24 Torsemide 5 mg PO DAILY 07/27/24 Hydrocodone 5/APAP 325 [[place] 5/325*] 1 tab PO Q6H PRN #30 tab 07/31/24 levoFLOXacin [Levaquin*] 750 mg PO Q48H #14 tab 07/31/24 New Medications: levoFLOXacin [Levaquin*] 750 mg PO Q48H #14 tab Hydrocodone 5/APAP 325 [[place] 5/325*] 1 tab PO Q6H PRN #30 tab PRN Reason: Pain Scale 5-7 (Moderate) Physician Discharge Instructions: -DC IV and DC home -Follow-up with PCP in 1 to 2 weeks -Please call Dr. Wilkinson at [phone] if any questions regarding hospital stay -Please call nursing station at [phone] if any nursing or medication questions -Return to the emergency room if symptoms worsen Diet: AHA Activity: Non-weight bearing (right foot) Followup: Leatha Mcdowell MD [Primary Care Provider] - 1-2 Weeks Brandon Vera MD [ACTIVE - CAN ADMIT] - 1-2 Weeks Time spent managing pt's care (in minutes): 35
== END 2024-07-31 15:00 | disposition home or self-care (01) | DRG 854 ==
LOC: ER 10:35 → ERHOLD 16:08 → 2ND 18:54
PROVIDERS: ADMIT Hospitalist; ATTEND Hospitalist
PROC: 0T9B70Z Drainage of Bladder with Drainage Device, Via Natural or Artificial Opening (ICD-10-PCS; 2024-07-29)
PROC: 0Y6X0Z0 Detachment at Right 5th Toe, Complete, Open Approach (ICD-10-PCS; principal; 2024-07-29 16:15)
DX: A41.9 Sepsis, unspecified organism (principal); E11.52 Type 2 diabetes mellitus with diabetic peripheral angiopathy with gangrene; N39.0 Urinary tract infection, site not specified; N17.9 Acute kidney failure, unspecified; M86.171 Other acute osteomyelitis, right ankle and foot; I12.9 Hypertensive chronic kidney disease with stage 1 through stage 4 chronic kidney disease, or unspecified chronic kidney disease; N18.32 Chronic kidney disease, stage 3b; E11.22 Type 2 diabetes mellitus with diabetic chronic kidney disease; E11.69 Type 2 diabetes mellitus with other specified complication; E11.65 Type 2 diabetes mellitus with hyperglycemia; E11.649 Type 2 diabetes mellitus with hypoglycemia without coma; E11.621 Type 2 diabetes mellitus with foot ulcer; L97.519 Non-pressure chronic ulcer of other part of right foot with unspecified severity; E86.0 Dehydration; I25.2 Old myocardial infarction; Z95.1 Presence of aortocoronary bypass graft; Z95.5 Presence of coronary angioplasty implant and graft; Z79.84 Long term (current) use of oral hypoglycemic drugs; Z79.899 Other long term (current) drug therapy
CPT/HCPCS: 36415; 80048; 80053; 80202; 81001; 82947; 83605; 84484; 85025; 85610; 85730; 87040; 87086; 87088; 88305; 93005; 96365; 96375; 99284; J0692; J0696; J1171; J1650; J1815; J2270; J2405; J2543; J2704; J3010; J3370; J7030; J7050; J7799

== ENCOUNTER 2024-09-03 10:03 | Day surgery (SDC) | payer OTHER ==
[2024-09-02 09:13] LABS: Absolute Basophils 0.1 K/uL (0-0.5); Absolute Eosinophils 0.3 K/uL (0-0.5); Absolute Lymphocytes (CBC) 1.6 K/uL (0.7-4.9); Absolute Monocytes 0.8 K/uL (0.1-1.3); Absolute Neutrophil 10.9 K/uL (1.8-8.0); Basophils % 0.4 % (0-1.3); Hematocrit 32.1 % (39.6-49.0); Hemoglobin 10.6 g/dL (13.6-17.9); Lymphocytes % 11.7 % (15.3-44.8); MCH 31.2 pg (27.0-35.0); MCV 94.5 fL (80-100); MPV 6.7 fL (7.6-11.3); Monocytes % 5.6 % (3.3-12.3); Neutrophils % 80.3 % (41.7-73.7); Platelets 344 thou/uL (152-406); RBC Red Blood Cell Count 3.39 M/uL (4.33-5.43)
[2024-09-02 09:31] LABS: PTT, Activated Partial Thromb 29.7 SECONDS (27.2-37.4); Protime INR 1.15
[2024-09-02 09:55] LABS: Anion Gap 12.7 mEq/L (5.0-15.0); Potassium 5.7 mEq/L (3.5-5.1)
[2024-09-03 10:32] LABS: Absolute Basophils 0.1 K/uL (0-0.5); Absolute Eosinophils 0.2 K/uL (0-0.5); Absolute Lymphocytes (CBC) 1.4 K/uL (0.7-4.9); Absolute Monocytes 0.8 K/uL (0.1-1.3); Absolute Neutrophil 12.7 K/uL (1.8-8.0); Basophils % 0.4 % (0-1.3); Hemoglobin 10.6 g/dL (13.6-17.9); Lymphocytes % 9.4 % (15.3-44.8); MCH 31.4 pg (27.0-35.0); MCHC 33.2 g/dL (32.0-36.0); MCV 94.5 fL (80-100); MPV 6.8 fL (7.6-11.3); Monocytes % 5.5 % (3.3-12.3); Neutrophils % 83.7 % (41.7-73.7); Platelets 319 thou/uL (152-406); RBC Red Blood Cell Count 3.38 M/uL (4.33-5.43); Red Cell Distribution Width 13.9 % (12.1-15.2)
[2024-09-03] MEDS ORDERED: DEXTROSE 10%-WATER 500 ML IV ONE (10:43)
[2024-09-03] MEDS ORDERED: CEFAZOLIN SODIUM 2 GM/VIAL ONE (11:19)
[2024-09-03 11:36] LABS: Potassium 5.4 mEq/L (3.5-5.1)
[2024-09-03 11:40] LABS: Anion Gap 12.4 mEq/L (5.0-15.0)
[2024-09-03] MEDS: NA CHLORIDE 0.9% 1,000 ML ONE (11:59)
[2024-09-03] MEDS ORDERED: ONDANSETRON 4 MG/2 ML VIAL ONE (12:00)
[2024-09-03] MEDS ORDERED: FENTANYL CITR 100 MCG/2 ML ONE (12:00)
[2024-09-03] MEDS ORDERED: propofoL 200 MG/20 ML VIAL IV ONE (12:00)
[2024-09-03] MEDS ORDERED: LIDOCAINE 2% MPF 5 ML VIAL ONE (12:00)
[2024-09-03] MEDS ORDERED: EPHEDRINE SULF 50 MG/ML VIAL ONE (12:08)
[2024-09-03] MEDS: LIDOCAINE HCL/EPINEPHRINE 20 ML MDV ONE (12:33)
--- NOTE | 2024-09-03 13:08 | P.OP ---
Preoperative diagnosis: RIGHT Foot Osteomyelitis Postoperative diagnosis: RIGHT Foot Osteomyelitis Primary procedure: Ray amputation /partial ray of RIGHT 3rd-5th rays Anesthesia: GETA + Local Estimated blood loss: <2cc Specimen: Rays 3-5 Findings: Ischemia and gangrene to 3rd-5th toes of RIGHT Foot Complications: None Transferred to: Recovery Room Condition: Good
[2024-09-03] MEDS: HYDROCODONE/APAP 10/325 TAB ONE (14:32)
--- NOTE | 2024-09-03 14:48 | OP ---
Date of Procedure: 09/03/2024 Surgeon: Brandon Vera MD, Postoperative Diagnosis: Right foot osteomyelitis. Postoperative Diagnosis: Right foot osteomyelitis. Procedure Performed: Ray amputation/partial ray amputation of the rays 3rd through 5 of the right fo ot. Anesthesia: General endotracheal plus local with 1% lidocaine with epinephrine. Estimated Blood Loss: 2 cc. Specimens: Rays 3 through 5. Findings: Ischemic changes and gangrenous changes of the 3rd and 5th toes of the right foot. Complications: None. Disposition: The patient was transferred to recovery room in good condition. Procedure In Detail: After informed consent was obtained, patient was brought to the operating room, prepped and draped in the usual sterile fashion after adequate anesthesia was achieved. I demarcate d an area following the better vascularized area of the foot circumferentially around the rays 3 thro ugh 5 including all ischemic tissue using a marking pen. I then followed this demarcation area using a 15 blade circumferentially around and used the electrocautery to dissect down to the rays of the d igits 3 through 5. I then proceeded to separate these tissues using combination of blunt dissection and electrocautery. The bones were ultimately exposed at the metatarsals, at this point. I ultimate ly swept back all periosteal tissue using a periosteal elevator circumferentially around the bones us ing a bone saw and then I these in orientation consistent with a step-down approach from me dial to lateral. I then beveled the edges of the bony structures after the tissue using e lectrocautery. All tendinous connections were cleared back proximally. All nonviable tissue was jordin rided using a combination of sharp dissection and electrocautery. After the beveled edges were appre ciated, they were irrigated copiously. Minimal hemostasis was required throughout the procedure. I then proceeded to irrigate the area once again and all nonviable tissue was resected clean, at this p oint, and left with good viable appearing tissue. I then proceeded to close the defect using 2-0 nyl on in an interrupted fashion, leaving the most medial aspect open to allow for drainage and that ther e would be too much tension on this area, and as such, I left it partially open. I packed with a kian rile dressing and additional sterile gauze and dressings were applied. The patient tolerated the pro cedure well without incident or complication, transferred to PACU in good condition. All counts were correct at the end of the case. JAS/RADHA Voice ID: [id number] Report ID: [id number]
[2024-09-03] MEDS ORDERED: HYDROMORPHONE HCL 0.5 MG/0.5 ML INJ ONE (15:24)
[2024-09-03 16:24] VITALS: BP 110/49; TEMP 97; O2SAT 97
== END 2024-09-03 16:05 | disposition home or self-care (01) ==
LOC: OR 10:03
PROVIDERS: ATTEND Surgery
PROC: 0Y6M0ZC Detachment at Right Foot, Partial 3rd Ray, Open Approach (ICD-10-PCS; 2024-09-03)
PROC: 0Y6M0ZD Detachment at Right Foot, Partial 4th Ray, Open Approach (ICD-10-PCS; 2024-09-03)
PROC: 0Y6M0ZB Detachment at Right Foot, Partial 2nd Ray, Open Approach (ICD-10-PCS; principal; 2024-09-03 12:00)
DX: M86.8X7 Other osteomyelitis, ankle and foot (principal); I73.9 Peripheral vascular disease, unspecified
CPT/HCPCS: 85025 ×2; 80048 ×2; 36415 ×2; 85610; 82947 ×3; 88305; 88311; 85730; 28805; J2704; J2003; J3010; J1171; J2405; J7030

== ENCOUNTER 2024-12-05 14:52 | Inpatient (IN) | payer OTHER ==
--- OUTSIDE RECORDS SUMMARY | 2024-12-05 15:15 | XMS REPORT | Continuity of Care Document ---
Author Name Unknown Address [address] [facility] [place] [address] [facility] Address [address] [facility] [place] [address] Care Team Providers Care Application Assistant Name Role Phone MICHAEL MCKEON Primary Care Physician Abigail Leatha Buckley Attending Clinician Unavailable KAYLA MORFIN Attending Clinician Ajay Hawkins Attending Clinician Unavailable Sandra Tiwari Attending Clinician Unavailable BERONICA BUENO Attending Clinician Unavailable Yuko Beauchamp Attending Clinician Unavailable Al-Saadi, Mahmoud Attending Clinician Unavailabl e Chileeanndouglas MACHOCHARU Beronica Attending Clinician Doctor Unassigned, [place] Attending Clinician U xochitlailAUDRA Ceballos Attending Clinician Unavailable AUDRA GOLDSTEIN Attending Clinician Unavailable Fabian Debby Rodriguez Attending Clinician Unavail able Joaquin BAUM, Dannielle Morocho Attending Clinician Unavailabl JOSEFA Roberson Attending Clinician Unavailable Gavino GERBER, Josefa Attending Clinician Unavailab Catherine Winchester MD Attending Clinician [phone] Payam GERBER, Antonio Kapoor Attending Clinician + Te GERBER, Luisa Sandoval Attending Clinician [phone] Giselle Morrison MD Attending Clinician [phone] GISELLE MORRISON Attending Clinician Unavailabl e FROME_AI Attending Clinician Unavailable NARAYAЮЛИЯ_A Attending Clinician Unavailable INDU DORMAN Attending Clinician Unavailable MOHSEN ALARCON Attending Clinician Unavailable CATHERINE MADRIGAL Admitting Clinician Unavailable JOSEFA MANCIA Admitting Clinician Unavailable Yuko Beauchamp Admitting Clinician Unavailable UNDEFINED Admitting Clinician Unavailable Eduardo Mishra Admitting Clinician Unavailabl Leatha Biswas Admitting Clinician Unavailable FROME_AI Admitting Clinician Unavailable NARAYANAN_A Admitting Clinician Unavailable Payers Payer Name Policy Type Policy Number Effective Date Expirati on Date Source [employer] MEDICARE ADV [id number] 2023 00:00:00 [employer] GOLD PLS O [id number] 2023 00:00:00 [facility] O 15 [id number] 2023 00:00:00 [employer] - GOLD PLUS (MEDICARE REPLACEMENT HMO) [id number] [employer]ARE 53 [id number] 2021 00:00:00 [facility] Problems Condition Name Condition Details Condition Category Status Onset Date Resolution Date Last Treatment Date Treating Clinician Comments Source Mild dehydratio n Mild Dehydratio n Problem Active 11-18 00:00: 00 [facility] Urinary tract infectious disease Urinary Tract Infectious Disease Problem Active 11-18 00:00: 00 [facility] Anemia of chronic disease Anemia of Chronic Disease Problem Active 11-14 00:00: 00 [facility] Senile purpura Senile Purpura Problem Active 11-14 00:00: 00 [facility] Hypertensi ve heart and chronic kidney disease Hypertensi ve Heart and Chronic Kidney Disease Problem Active 11-14 00:00: 00 [facility] Coronary atheroscle rosis Coronary Atheroscle rosis Problem Active 11-14 00:00: 00 [facility] Pyuria Pyuria Problem Active 11-14 00:00: 00 [facility] Chronic kidney disease stage 3A Chronic Kidney Disease Stage 3a Problem Active 11-14 00:00: 00 [facility] Surgical wound finding Surgical Wound Finding Problem Active 11-14 00:00: 00 [facility] 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 Polyneurop athy Due to Type 2 Diabetes Mellitus Problem Active 11-14 00:00: 00 [facility] 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 Problem Active 11-14 00:00: 00 [facility] Acute posthemorr hagic anemia Acute Posthemorr hagic Anemia Problem Active 11-06 00:00: 00 [facility] Hypercoagu lability state Hypercoagu lability State Problem Active 11-06 00:00: 00 [facility] Gastroesop hageal reflux disease without esophagiti s Gastroesop hageal Reflux Disease without Esophagiti s Problem Active 11-06 00:00: 00 [facility] Benign prostatic hyperplasi a with outflow obstructio n Benign Prostatic Hyperplasi a with Outflow Obstructio n Problem Active 11-06 00:00: 00 [facility] Type 2 diabetes mellitus with peripheral angiopathy Type 2 Diabetes Mellitus with Peripheral Angiopathy Problem Active 11-06 00:00: 00 [facility] Hyperlipid emia Hyperlipid emia Problem Active 11-06 00:00: 00 [facility] 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 Problem Active 11-06 00:00: 00 [facility] BPH (benign prostatic hyperplasi a) BPH (benign prostatic hyperplasi a) Disease Active 2023-05 00:00: 00 [facility] Gastroesop hageal reflux disease without esophagiti s Gastroesop hageal reflux disease without esophagiti s Disease Active 2023-05 00:00: 00 [facility] 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 Disease Active 2023-05 00:00: 00 [facility] 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 Disease Active 2023-05 00:00: 00 [facility] Osteoarthr itis of hip, unspecifie d laterality , unspecifie d osteoarthr itis type Osteoarthr itis of hip, unspecifie d laterality , unspecifie d osteoarthr itis type Disease Active 2023-05 00:00: 00 [facility] Paroxysmal atrial fibrillati on Paroxysmal atrial fibrillati on Disease Active 2023-05 00:00: 00 [facility] CAD, multiple vessel CAD, multiple vessel Disease Active 2023-05 00:00: 00 [facility] Stage 3a chronic kidney disease Stage 3a chronic kidney disease Disease Active 2023-05 00:00: 00 [facility] Dyslipidem ia Dyslipidem ia Disease Active 2023-05 00:00: 00 [facility] 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 Disease Active 11-09 00:00: 00 [facility] Type 2 diabetes mellitus, with long-term current use of insulin Type 2 diabetes mellitus, with long-term current use of insulin Disease Active 11-09 00:00: [address] [facility] [address] elevation myocardial infarction (STEMI), unspecifie d artery ST elevation myocardial infarction (STEMI), unspecifie d artery Disease Recurre nce 3-29 00:00: 00 [facility] 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 Entered By: Brittnee Malone PA-C;Sign ed By: Brittnee Malone PA-C [facility] Primary hypertensi on Primary hypertensi on Disease Active 05-01 00:00: 00 [facility] Cast removal Cast removal Problem [facility] Encounter for Schreiber catheter replacemen t Encounter for Schreiber catheter replacemen t Problem [facility] [id number] Acute urinary retention Problem [facility] [id number] Other obstructiv e and reflux uropathy Problem [facility] [id number] Chronic cystitis Problem [facility] Detrusor instabilit y Detrusor instabilit y Problem [facility] [id number] 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 Problem Active [facility] [id number] Mixed hyperlipid emia Problem Active [facility] [id number] Benign prostatic hyperplasi a with lower urinary tract symptoms Problem Active [facility] Hyperglyce be due to type 2 diabetes mellitus Type 2 diabetes mellitus with hyperglyce be, without long-term current use of insulin Problem Active [facility] Allergies, Adverse Reactions, Alerts Allergy Name Allergy Type Status Severity Reaction(s) Onset Date Inactive Date Treating Clinician Comments Source codeine DA Active ND ITCHING 10 00:00: 00 [facility] codeine DA Active U ITCHING 3-04 00:00: 00 [facility] NO KNOWN ALLERGIE S Allergy Active [facility] NO KNOWN ALLERGIE S Drug Class Active [facility] Social History Social Habit Start Date Stop Date Quantity Comments Source Sexual orientation C [facility] History of Tobacco Use [facility] Tobacco use and exposure 2023-11-10 00:00:00 2023-11-10 00:00:00 Smokeless tobacco non-user [facility] Alcohol Comment 2023-11-10 00:00:00 2023-11-10 00:00:00 every now and than [facility] Alcoholic beverage intake 2023-07-31 00:00:00 2023-07-31 00:00:00 Ex-drinker (finding) [facility] History of Social function 2023-07-28 00:00:00 2023-07-28 00:00:00 [facility] Sex 2015-03-11 15:59:41 2015-03-11 15:59:41 Male (finding) [facility] Sex assigned at 1940 00:00:00 1940 00:00:00 [facility] Smoking Status Start Date Stop Date Source Never Smoker [facility] Tobacco smoking consumption unknown [facility] Medications Ordered Medication Name Filled Medication Name Start Date Stop Date Current Medication? Ordering Clinician Indication Dosage Frequency Signature (SIG) Comments Components Source Cephalexin 500 MG Cephalexin 500 MG 06-17 00:00: 00 No 1{capsu le} TID Cephalexin 500 MG Fluconazole 100 MG Fluconazole 100 MG 06-17 00:00: 00 No Fluconazol e 100 MG semaglutide (OZEMPIC) 0.25 mg or 0.5 mg (2 mg/3 mL) PnIj 2023-05 00:00: 00 08-07 04:59 :00 No [id number] inject 0.25 mg under the skin weekly for 4 weeks, THEN 0.5 mg weekly for the remainder. [facility] blood sugar diagnostic strip 2023-05 00:00: 00 Yes [id number] Use as directed. Check blood sugar three to four times daily for diagnosis E11.65. [facility] Lancets (ACCU-CHEK SOFTCLIX LANCETS) Misc 2023-05 00:00: 00 Yes [id number] Use as directed. Check blood sugar three to four times daily for diagnosis E11.65. [facility] insulin degludec (TRESIBA FLEXTOUCH U-200) 200 unit/mL (3 mL) In 2023-05 00:00: 00 Yes [id number] 20U inject 20 Units under the skin at bedtime. For Tresiba: take HALF dose if blood glucose 80 - 120 mg/dL, HOLD if less than 80. [facility] spironolact one 25 mg tablet 11-09 14:52: 39 Yes 25mg Take 1 tablet by mouth in the morning. [facility] aspirin 81 mg chewable tablet 11-09 14:50: 41 Yes 81mg Take 1 tablet by mouth in the morning. [facility] glimepiride 4 mg tablet 11-09 14:50: 41 Yes 4mg Take 1 tablet by mouth daily with breakfast. [facility] sacubitriL- valsartan (ENTRESTO) 49-51 mg tablet 11-09 00:00: 00 Yes Take by mouth. [facility] blood sugar diagnostic strip 11-09 00:00: 00 04-19 00:00 :00 No [id number] Use as directed. Check blood sugar three to four times daily for diagnosis E11.65. [facility] Lancets (ACCU-CHEK SOFTCLIX LANCETS) [facility] 11-09 00:00: 00 04-19 00:00 :00 No [id number] Use as directed. Check blood sugar three to four times daily for diagnosis E11.65. [facility] semaglutide (OZEMPIC) 0.25 mg or 0.5 mg (2 mg/3 mL) PnIj 11-09 00:00: 00 02-16 04:59 :00 No [id number] inject 0.25 mg under the skin weekly for 28 days, THEN 0.5 mg weekly thereafter [facility] FIASP FLEXTOUCH U-100 INSULIN 100 unit/mL (3 mL) InPn 08-23 00:00: 00 04-19 00:00 :00 No 20U inject 20 Units under the skin in the morning. [facility] Finasteride 5 MG Finasteride 5 MG 08-22 00:00: 00 No 1{table t} QD Finasterid e 5 MG empaglifloz in (JARDIANCE) 10 mg tablet 08-04 00:00: 00 09-03 23:59 :00 No 10mg QD Take 1 tablet (10 mg total) by mouth daily for 30 days. [facility] eplerenone (INSPRA) 25 MG tablet 08-04 00:00: 00 08-03 00:00 :00 No 25mg QD Take 1 tablet (25 mg total) by mouth daily for 30 days Bedside delivery. Patient is going home today.. [facility] glipiZIDE (GLUCOTROL) 10 MG tablet 08-03 15:43: 41 Yes type 2 diabetes mellitus 10mg Take 1 tablet (10 mg total) by mouth 2 (two) times daily before meals. [facility] nitroglycer in (NITROSTAT) 0.4 MG SL tablet 08-03 15:43: [address] 1 tablet (0.4 mg total) under the tongue every 5 (five) minutes as needed for Chest pain Put 1 pill under tongue every 5min as needed for chest pain.No more than 3 doses in 15min.Call 911 if pain is unrelieved 5min after 1st dose . [facility] aspirin 81 MG EC tablet 08-03 15:43: 41 Yes 81mg QD Take 1 tablet (81 mg total) by mouth daily. [facility] glimepiride (AMARYL) 4 MG tablet 08-03 15:43: 41 Yes 4mg Take 1 tablet (4 mg total) by mouth every morning before breakfast. [facility] losartan (COZAAR) 100 MG tablet 08-03 11:54: 53 08-03 00:00 :00 No hypertensio n 50mg QD Take 0.5 tablets (50 mg total) by mouth daily. [facility] metFORMIN (GLUCOPHAGE ) 1000 MG tablet 08-03 11:54: 53 08-03 00:00 :00 No type 2 diabetes mellitus 1000mg Take 1 tablet (1,000 mg total) by mouth 2 (two) times daily with breakfast and dinner. [facility] simvastatin (ZOCOR) 40 MG tablet 08-03 11:54: 53 08-03 00:00 :00 No hypercholes terolemia 40mg QD Take 1 tablet (40 mg total) by mouth nightly. [facility] terazosin (HYTRIN) 5 MG capsule 08-03 11:54: 53 08-03 00:00 :00 No hypertensio n 10mg QD Take 2 capsules (10 mg total) by mouth nightly. [facility] celecoxib (CeleBREX) 200 MG capsule 08-03 11:54: 53 08-03 00:00 :00 No 200mg QD Take 1 capsule (200 mg total) by mouth daily Look-ali ke/Sound-a like medication With food. [facility] metoprolol tartrate (LOPRESSOR) 50 MG tablet 08-03 11:54: 53 08-03 00:00 :00 No 50mg QD Take 1 tablet (50 mg total) by mouth daily. [facility] spironolact one (ALDACTONE) 25 MG tablet 08-03 00:00: 00 08-03 23:59 :00 No 25mg QD Take 1 tablet (25 mg total) by mouth daily. [facility] torsemide (DEMADEX) 5 MG tablet 08-03 00:00: 00 08-03 23:59 :00 No 5mg Take 1 tablet (5 mg total) by mouth daily as needed. [facility] sacubitriL- valsartan (ENTRESTO) 24-26 mg tablet 08-03 00:00: 00 09-02 23:59 :00 No 1{tbl} Q.5D Take 1 tablet by mouth 2 (two) times daily for 30 days. [facility] Bupivicaine Clutier Bupivicaine Clutier 09-08 00:00: 00 No 5mL [facility] Kenalog (Triamcinol one) Kenalog (Triamcinol one) 09-08 00:00: 00 No 1mL [facility] acetaminoph en-codeine (TYLENOL #3) 300-30 mg per tablet 2014-05 00:00: 00 08-03 00:00 :00 No 1{tbl} Take 1-2 tablets by mouth every 4 (four) hours as needed. [facility] Jardiance 25 mg tablet Jardiance 25 mg tablet No Jardiance 25 mg tablet [facility] metoprolol succinate ER 25 mg tablet,exte nded release 24 hr TAKE ONE (1) TABLET(S) BY MOUTH DAILY. metoprolol succinate ER 25 mg tablet,exte nded release 24 hr TAKE ONE (1) TABLET(S) BY MOUTH DAILY. No metoprolol succinate ER 25 mg tablet,ext ended release 24 hr TAKE ONE (1) TABLET(S) BY MOUTH DAILY. [facility] Novolin N NPH U-100 Insulin per sliding scale. Novolin N NPH U-100 Insulin per sliding scale. No Novolin N NPH U-100 Insulin per sliding scale. [facility] pantoprazol e 40 mg tablet,renetta yed release Take 1 tablet twice a day by oral route. pantoprazol e 40 mg tablet,renetta yed release Take 1 tablet twice a day by oral route. No 1 BID pantoprazo le 40 mg tablet,del ayed release Take 1 tablet twice a day by oral route. [facility] tramadol 50 mg tablet Take 1 tablet every 6 hours by oral route as needed for 14 days. tramadol 50 mg tablet Take 1 tablet every 6 hours by oral route as needed for 14 days. No 1 Q6H tramadol 50 mg tablet Take 1 tablet every 6 hours by oral route as needed for 14 days. [facility] Terazosin HCl 10 MG Terazosin HCl 10 MG No Terazosin HCl 10 MG Aspir-81 Aspir-81 No 1{caps u le} QD Aspir-81 Glimepiride 4 MG Glimepiride 4 MG No 1{table t_with_ breakfa st_or_t he_firs t_main_ meal_of _the_da y} QD Glimepirid e 4 MG Torsemide 5 MG Torsemide 5 MG No 1{table t} QD Torsemide 5 MG Jardiance 10 MG Jardiance 10 MG No 1{table t} QD Jardiance 10 MG Atorvastati n Calcium 80 MG Atorvastati n Calcium 80 MG No 1{table t} QD Atorvastat in Calcium 80 MG Entresto 24-26 MG Entresto 24-26 MG No 1{table t} BID Entresto 24-26 MG Spironolact one 25 MG Spironolact one 25 MG No 1{table t} Spironolac tone 25 MG Clopidogrel Bisulfate 75 MG Clopidogrel Bisulfate 75 MG No 1{table t} QD Clopidogre l Bisulfate 75 MG atorvastati n 80 mg tablet TAKE ONE (1) TABLET(S) BY MOUTH ONCE A DAY AT BEDTIME. atorvastati n 80 mg tablet TAKE ONE (1) TABLET(S) BY MOUTH ONCE A DAY AT BEDTIME. No atorvastat in 80 mg tablet TAKE ONE (1) TABLET(S) BY MOUTH ONCE A DAY AT BEDTIME. [facility] clopidogrel 75 mg tablet TAKE ONE (1) TABLET(S) BY MOUTH DAILY. clopidogrel 75 mg tablet TAKE ONE (1) TABLET(S) BY MOUTH DAILY. No clopidogre l 75 mg tablet TAKE ONE (1) TABLET(S) BY MOUTH DAILY. [facility] finasteride 5 mg tablet TAKE ONE (1) TABLET(S) BY MOUTH ONCE A DAY. finasteride 5 mg tablet TAKE ONE (1) TABLET(S) BY MOUTH ONCE A DAY. No finasterid e 5 mg tablet TAKE ONE (1) TABLET(S) BY MOUTH ONCE A DAY. [facility] gabapentin 100 mg capsule Take 2 capsules every day by oral route at bedtime. gabapentin 100 mg capsule Take 2 capsules every day by oral route at bedtime. No 2capsul e(s) Q1D gabapentin 100 mg capsule Take 2 capsules every day by oral route at bedtime. [facility] insulin glargine (U-100) 100 unit/mL (3 mL) subcutaneou s pen Inject 20 units every 12 hours by subcutaneou s route. insulin glargine (U-100) 100 unit/mL (3 mL) subcutaneou s pen Inject 20 units every 12 hours by subcutaneou s route. No 20unit( s) Q12H insulin glargine (U-100) 100 unit/mL (3 mL) subcutaneo us pen Inject 20 units every 12 hours by subcutaneo us route. [facility] Immunizations Ordered Immunization Name Filled Immunization Name Date Status Comments Source Influenza, High-Dose, Trivalent, PF (FLUZONE) 2021-02-01 00:00:00 Completed Influenza, High-Dose, Trivalent, PF (FLUZONE) 2018-02-26 00:00:00 Completed Influenza, High-Dose, Trivalent, PF (FLUZONE) 2016-03-10 00:00:00 Completed Pneumococcal 13 Conjugate, PCV13 (Prevnar 13) 2016-03-10 00:00:00 Completed Influenza, High-Dose, Trivalent, PF (FLUZONE) 2014-03-24 00:00:00 Completed Zoster(Zostavax)(Shingl es) 2012-07-10 00:00:00 Completed Pneumococcal Unspecified 2002-03-13 00:00:00 Completed TD, NOS 1997-05-20 00:00:00 Completed TD, NOS 1997-05-01 00:00:00 Completed Pneumococcal Unspecified 1996-05-01 00:00:00 Completed Vital Signs Vital Name Observation Time Observation Value Comments S ource BP Systolic 2024-11-15 00:00:00 108 mm[Hg] [facility] BP Diastolic 2024-11-15 00:00:00 76 mm[Hg] [facility] Height 2024-11-15 00:00:00 67.5 [in_i] [facility] Body Weight 2024-11-15 00:00:00 2020 [oz_av] [facility] BMI (Body Mass Index) 2024-11-15 00:00:00 19.5 kg/m2 [facility] Body Weight 2024-11-14 00:00:00 2022.4 [oz_av] [facility] BP Systolic 2024-11-14 00:00:00 121 mm[Hg] [facility] BP Diastolic 2024-11-14 00:00:00 74 mm[Hg] [facility] BP Systolic 2024-11-11 00:00:00 128 mm[Hg] [facility] BP Diastolic 2024-11-11 00:00:00 78 mm[Hg] [facility] Height 2024-11-11 00:00:00 67.5 [in_i] [facility] Body Weight 2024-11-11 00:00:00 2020 [oz_av] [facility] BMI (Body Mass Index) 2024-11-11 00:00:00 19.5 kg/m2 [facility] BMI (Body Mass Index) 2024-11-06 00:00:00 19.5 kg/m2 [facility] BP Diastolic 2024-11-06 00:00:00 65 mm[Hg] [facility] BP Systolic 2024-11-06 00:00:00 103 mm[Hg] [facility] Body Weight 2024-11-06 00:00:00 2020 [oz_av] [facility] Height 2024-11-06 00:00:00 67.5 [in_i] [facility] Systolic blood pressure 2024-04-19 20:06:00 136 mm[Hg] [facility] Diastolic blood pressure 2024-04-19 20:06:00 69 mm[Hg] [facility] Heart rate 2024-04-19 20:06:00 79 /min [facility] Body height 2024-04-19 20:06:00 175.3 cm [facility] Body weight 2024-04-19 20:06:00 66.497 kg [facility] BMI 2024-04-19 20:06:00 21.65 kg/m2 [facility] Oxygen saturation in Arterial blood by Pulse oximetry 2024-04-19 20:06:00 100 /min [facility] height 2024-03-20 11:15:00 70 [in_i] [facility] [place] 2024-03-20 11:15:00 146 [lb_av] [facility] temperature 2024-03-20 11:15:00 98.6 [degF] Com [facility] bmi 2024-03-20 11:15:00 20.95 kg/m2 [facility] height 2024-02-14 10:30:00 70 [in_i] [facility] weight 2024-02-14 10:30:00 146 [lb_av] [facility] temperature 2024-02-14 10:30:00 97.4 [degF] Com [facility] bmi 2024-02-14 10:30:00 20.95 kg/m2 [facility] oximetry 2024-02-14 10:30:00 96 % [facility] respiratory rate 2024-02-14 10:30:00 18 /min [facility] blood pressure systolic 2024-02-14 10:30:00 140 mm[Hg] [facility] blood pressure diastolic 2024-02-14 10:30:00 68 mm[Hg] [facility] Systolic blood pressure 2023-11-10 19:22:00 137 mm[Hg] [facility] Diastolic blood pressure 2023-11-10 19:22:00 70 mm[Hg] [facility] Heart rate 2023-11-10 19:22:00 90 /min [facility] 2023-11-10 19:22:00 175.3 cm [facility] Body weight 2023-11-10 19:22:00 69.536 kg [facility] BMI 2023-11-10 19:22:00 22.64 kg/m2 [facility] Oxygen saturation in Arterial blood by Pulse oximetry 2023-11-10 19:22:00 98 /min [facility] height 2023-08-23 10:30:00 70 [in_i] [facility] [place] 2023-08-23 10:30:00 160.4 [lb_av] Co [facility] temperature 2023-08-23 10:30:00 97.2 [degF] Com [facility] bmi 2023-08-23 10:30:00 23.01 kg/m2 Comm [facility] oximetry 2023-08-23 10:30:00 96 % Commo [facility] respiratory rate 2023-08-23 10:30:00 18 /min [facility] blood pressure systolic 2023-08-23 10:30:00 130 mm[Hg] [facility] blood pressure diastolic 2023-08-23 10:30:00 60 mm[Hg] [facility] WEIGHT 2023-08-04 05:07:00 74.072 kg WEIGHT 2023-08-03 04:58:00 73.165 kg WEIGHT 2023-08-02 04:00:00 73.483 kg WEIGHT 2023-08-01 23:03:00 73.8 kg WEIGHT 2023-08-01 06:00:00 75.66 kg WEIGHT 2023-07-31 05:00:00 82.781 kg WEIGHT 2023-07-30 06:00:00 79.652 kg WEIGHT 2023-07-29 06:00:00 80.423 kg HEIGHT 2023-07-28 23:00:00 175.3 cm WEIGHT 2023-07-28 23:00:00 75.479 kg WEIGHT 2023-08-04 05:07:00 74.072 kg WEIGHT 2023-08-03 04:58:00 73.165 kg WEIGHT 2023-08-02 04:00:00 73.483 kg WEIGHT 2023-08-01 23:03:00 73.8 kg WEIGHT 2023-08-01 06:00:00 75.66 kg WEIGHT 2023-07-31 05:00:00 82.781 kg WEIGHT 2023-07-30 06:00:00 79.652 kg WEIGHT 2023-07-29 06:00:00 80.423 kg HEIGHT 2023-07-28 23:00:00 175.3 cm WEIGHT 2023-07-28 23:00:00 75.479 kg height 2021-11-23 14:30:00 70 [in_i] Commo [facility] [place] 2021-11-23 14:30:00 179.9 [lb_av] [facility] [facility]mon [facility] temperature 2021-11-23 14:30:00 97.1 [degF] Com [facility] bmi 2021-11-23 14:30:00 25.81 kg/m2 Comm on [facility] blood pressure systolic 2021-11-23 14:30:00 138 mm[Hg] [facility] blood pressure diastolic 2021-11-23 14:30:00 76 mm[Hg] [facility] height 2021-11-19 15:20:00 70 [in_i] Commo n [facility] weight 2021-11-19 15:20:00 178 [lb_av] Comm on [facility] temperature 2021-11-19 15:20:00 97.8 [degF] Com [facility] bmi 2021-11-19 15:20:00 25.54 kg/m2 Comm on [facility] oximetry 2021-11-19 15:20:00 96 % Commo n [facility] respiratory rate 2021-11-19 15:20:00 16 /min Common [facility] blood pressure systolic 2021-11-19 15:20:00 128 mm[Hg] [facility] blood pressure diastolic 2021-11-19 15:20:00 72 mm[Hg] Common [facility] height 2021-11-19 15:40:00 70 [in_i] Commo n [facility] weight 2021-11-19 15:40:00 178 [lb_av] Comm on [facility] temperature 2021-11-19 15:40:00 97.8 [degF] Com [facility] bmi 2021-11-19 15:40:00 25.54 kg/m2 Comm on [facility] oximetry 2021-11-19 15:40:00 96 % Commo n [facility] respiratory rate 2021-11-19 15:40:00 16 /min [facility] blood pressure systolic 2021-11-19 15:40:00 128 mm[Hg] [facility] blood pressure diastolic 2021-11-19 15:40:00 72 mm[Hg] [facility] height 2021-06-29 14:40:00 70 [in_i] Commo n [facility] weight 2021-06-29 14:40:00 180.2 [lb_av] Co [facility] temperature 2021-06-29 14:40:00 98.2 [degF] Com mon [facility] bmi 2021-06-29 14:40:00 25.85 kg/m2 Comm on [facility] oximetry 2021-06-29 14:40:00 98 % Commo n [facility] respiratory rate 2021-06-29 14:40:00 16 /min [facility] blood pressure systolic 2021-06-29 14:40:00 139 mm[Hg] [facility] blood pressure diastolic 2021-06-29 14:40:00 64 mm[Hg] [facility] Systolic blood pressure 2023-08-04 11:10:00 138 mm[Hg] [facility] Diastolic blood pressure 2023-08-04 11:10:00 63 mm[Hg] [facility] Heart rate 2023-08-04 11:10:00 90 /min [facility] Body temperature 2023-08-04 11:10:00 36.39 Noemi [facility] Respiratory rate 2023-08-04 11:10:00 18 /min [facility] Oxygen saturation in Arterial blood by Pulse oximetry 2023-08-04 11:10:00 96 /min [facility] Body weight 2023-08-04 05:07:00 74.072 kg [facility] BMI 2023-08-04 05:07:00 24.12 kg/m2 [facility] Body height 2023-07-28 23:00:00 175.3 cm [facility] Procedures Procedure Date / Time Performed Performing Clinician Source FLUOROSCOPY OF R LOW EXTREM ART USING L OSM CONTRA 2024-07-10 00:00:00 ROCAEL [facility] FLUOROSCOPY OF AORTA, BI LE ART USING L OSM CONTRA 2024-07-10 [facility], BI LE ART USING L OSM CONTRA 2024-07-05 00:00:[id number] [place] [address] FLUOROSCOPY OF R LOW EXTREM ART USING L OSM CONTRA 2024-07-05 00:00:[id number] [place] [address] FLUOROSCOPY OF L LOW EXTREM ART USING L OSM CONTRA 2024-07-05 00:00:[id number] [place] [address] FLUOROSCOPY OF BILATERAL RENAL ARTERIES USING L OS 2024-07-05 00:00:[id number] [place] [address] DIABETES TESTING REPORTS 2024-04-29 17:12:48 Doc codey Unassigned, [place] [facility] DIABETES TESTING REPORTS 2024-04-29 17:12:48 Doc codey Unassigned, [place] [facility] DIABETES TESTING REPORTS 2024-04-29 17:12:47 Tonny alegre Unassigned, [place] [facility] POCT HEMOGLOBIN A1C TEST 2024-04-19 20:07:00 Winsome Bueno [facility] REFERRAL- REQUEST/RESPONSE 2023-09-01 16:17:40 Sylvie valdovinos Unassigned, [place] [facility] POCT-GLUCOSE METER 2023-08-04 11:14:00 Giselle Morrison Sy ed [facility] POCT-GLUCOSE METER 2023-08-04 07:25:00 Giselle Morrison ed [facility] CBC W/PLT COUNT & AUTO DIFFERENTIAL 2023-08-04 04:23:00 Amber Odonnell [facility] MAGNESIUM 2023-08-04 04:23:00 Blas, [facility] BASIC METABOLIC PANEL 2023-08-04 04:23:00 [facility] W/[facility]T COUNT & AUTO DIFFERENTIAL 2023-08-04 04:23:00 Blas, [facility] POCT-GLUCOSE METER 2023-08-03 20:42:00 [facility]SE METER 2023-08-03 17:18:[address] [facility] POCT-GLUCOSE METER 2023-08-03 11:44:[address] [facility] POCT-GLUCOSE METER 2023-08-03 07:58:00 Prince, [facility] CBC W/PLT COUNT & AUTO DIFFERENTIAL 2023-08-03 04:52:00 Blas [facility] MAGNESIUM 2023-08-03 04:52:00 Blas, [facility] B-TYPE NATRIURETIC FACTOR (BNP) 2023-08-03 04:52:00 Catherine Madrigal [facility] BASIC METABOLIC PANEL 2023-08-03 04:52:00 Prince [facility] CBC W/PLT COUNT & AUTO DIFFERENTIAL 2023-08-03 04:52:00 [facility] POCT-GLUCOSE METER 2023-08-02 20:44:00 [facility] POCT-GLUCOSE METER 2023-08-02 17:17:[address] [facility] POCT-GLUCOSE METER 2023-08-02 08:01:00 Paola Tiwari [facility] XR CHEST 1 VIEW PORTABLE / BEDSIDE 2023-08-02 05:12:00 Kayla Morfin [facility] CBC W/PLT COUNT & AUTO DIFFERENTIAL 2023-08-02 04:19:00 Blas, [facility] HEPATIC FUNCTION PANEL 2023-08-02 04:19:00 Blas, [facility] sylvie [facility] MAGNESIUM 2023-08-02 04:19:00 [facility] BASIC METABOLIC PANEL 2023-08-02 04:19:00 NavjotKayla [facility] OXYGEN SATURATION, MEASURED 2023-08-02 04:19:00 Navjot Kaylarosario Shelton [facility] CALCIUM, IONIZED 2023-08-02 04:19:00 NavjotMarkus [facility] LACTIC ACID, VENOUS 2023-08-02 04:19:00 Luisa Tiwari [facility] CBC W/PLT COUNT & AUTO DIFFERENTIAL 2023-08-02 04:19[facility]00 [facility] PO[facility]SE METER 2023-08-01 20:24:00 Paola Tiwari Jaime [facility] BASIC METABOLIC PANEL 2023-08-01 17:38:00 Ney Melo [facility] BASIC METABOLIC PANEL 2023-08-01 16:36:00 NavjotKayla [facility] POCT-GLUCOSE METER 2023-08-01 16:34:00 Paola Tiwari Jaime [facility] LACTIC ACID, VENOUS 2023-08-01 12:02:00 Mikael [facility] POCT-GLUCOSE METER 2023-08-01 11:27:00 Antonio [facility] OXYGEN SATURATION, MEASURED 2023-08-01 07:55:00 Mercedez Scanlon [facility] POCT-GLUCOSE METER 2023-08-01 07:12:00 Antonio H[facility] LACTIC ACID, VENOUS 2023-08-01 06:40:[address] [facility] W/[facility] COUNT & AUTO DIFFERENTIAL 2023-08-01 02:18:00 [facility] HE[facility] FUNCTION PANEL 2023-08-01 02:18:00 Shikha Odonnell [facility] MAGNESIUM 2023-08-01 02:18:00 [facility] BASIC METABOLIC PANEL 2023-08-01 02:18:00 Kayla [facility] OXYGEN SATURATION, MEASURED 2023-08-01 02:18:00 Jeannine [facility] CALCIUM, IONIZED 2023-08-01 02:18:00 Markus [facility] CBC W/PLT COUNT & AUTO DIFFERENTIAL 2023-08-01 02:18:00 [facility] XR CHEST 1 VIEW PORTABLE / BEDSIDE 2023-08-01 01:59:00 Navjot Kayla [facility] LACTIC ACID, VENOUS 2023-08-01 00:06:00 Mikael [facility] POCT-GLUCOSE METER 2023-07-31 20:23:00 [facility], VENOUS 2023-07-31 17:51:00 [facility] OXYGEN SATURATION, MEASURED 2023-07-31 17:51:[facility] PO[facility]SE METER 2023-07-31 16:25:00 Antonio H[facility] BASIC METABOLIC PANEL 2023-07-31 16:22:00 Kayla [facility] OXYGEN SATURATION, MEASURED 2023-07-31 13:36:00 Ghislaine [facility] LACTIC ACID, VENOUS 2023-07-31 12:05:00 Mikael [facility] POCT-GLUCOSE METER 2023-07-31 11:05:00 SenAntonio tran [facility] LACTATE DEHYDROGENASE (LDH) 2023-07-31 09:37:00 Ney Avendano [facility] HAPTOGLOBIN 2023-07-31 09:37:00 Annetta Avendano [facility] PLASMA FREE HEMOGLOBIN 2023-07-31 09:37:00 Ney Dawn [facility] POCT-GLUCOSE METER 2023-07-31 07:00:00 Catherine Madrigal [facility] LACTIC ACID, VENOUS 2023-07-31 06:36:00 Darrick Youssef [facility] XR CHEST 1 VIEW PORTABLE / BEDSIDE 2023-07-31 04:02:00 Kayla Morfin [facility] LACTIC ACID, VENOUS 2023-07-31 02:54:00 Darrick Youssef [facility] CBC W/PLT COUNT & AUTO DIFFERENTIAL 2023-07-31 02:54:00 [facility] PANEL 2023-07-31 02:54:00 Blas [facility] sylvie [facility] MAGNESIUM 2023-07-31 02:54[facility]00 [facility] 2023-07-31 02:54:00 Kayla [facility] OXYGEN SATURATION, MEASURED 2023-07-31 02:54:00 Kayla [facility] CALCIUM, IONIZED 2023-07-31 02:54:00 Markus [facility] CBC W/PLT COUNT & AUTO DIFFERENTIAL 2023-07-31 02:54:00 [facility] BLOOD GAS, VENOUS 2023-07-30 23:23:00 Darrick Youssef [facility] POCT-GLUCOSE METER 2023-07-30 20:35:00 Catherine Madrigal [facility] POCT-GLUCOSE METER 2023-07-30 16:17:00 Catherine Madrigal [facility] BASIC METABOLIC PANEL 2023-07-30 15:14:00 Kayla [facility] CBC (HEMOGRAM ONLY) 2023-07-30 15:14:00 Glo Morfin [facility] LACTIC ACID, ARTERIAL 2023-07-30 15:14:00 Kayla [facility] OXYGEN SATURATION, MEASURED 2023-07-30 15:14:00 Kayla Morfin [facility] US RENAL COMPLETE 2023-07-30 14:36:00 Jeannine Morfin [facility] POCT-GLUCOSE METER 2023-07-30 11:10:00 Catherine Madrigal [facility] LACTATE DEHYDROGENASE (LDH) 2023-07-30 08:55:00 Kayla [facility] PLASMA FREE HEMOGLOBIN 2023-07-30 08:55:00 Kayla [facility] HAPTOGLOBIN 2023-07-30 08:55:00 Enrique [facility] APTT 2023-07-30 08:55:00 Enrique [facility] XR CHEST 1 VIEW PORTABLE / BEDSIDE 2023-07-30 08:52:17 Indu Dorman [facility] POCT-GLUCOSE METER 2023-07-30 07:36:00 Catherine Madrigal [facility] URINALYSIS W/ MICROSCOPIC 2023-07-30 02:10:00 Kayla Goins [facility] OXYGEN SATURATION, MEASURED 2023-07-30 02:10:00 Kayla [facility] CALCIUM, IONIZED 2023-07-30 02:10:00 Markus [facility] BLOOD GAS, ARTERIAL 2023-07-30 02:10:00 Catherine Madrigal [facility] CBC W/PLT COUNT & AUTO DIFFERENTIAL 2023-07-30 02:04:00 Blas [facility] HEPATIC FUNCTION PANEL 2023-07-30 02:04:00 Shikha Odonnell [facility] MAGNESIUM 2023-07-30 02:04:00 Blas [facility] HIGH SENSITIVITY TROPONIN I 2023-07-30 02:04:00 Kayla Morfin [facility] BASIC METABOLIC PANEL 2023-07-30 02:04:00 Kayla [facility] LACTATE DEHYDROGENASE (LDH) 2023-07-30 02:04:00 Kayla Morfin [facility] PLASMA FREE HEMOGLOBIN 2023-07-30 02:04:00 Kayla [facility] HAPTOGLOBIN 2023-07-30 02:04:00 Enrique [facility] APTT 2023-07-30 02:04:00 Enrique [facility] LACTIC ACID, ARTERIAL 2023-07-30 02:04:00 Jeannine [facility] CBC W/PLT COUNT & AUTO DIFFERENTIAL 2023-07-30 02:04:00 Amber Odonnell [facility] LACTIC ACID, ARTERIAL 2023-07-29 21:43:00 Kayla [facility] HIGH SENSITIVITY TROPONIN I 2023-07-29 21:43:00 NavjotJeannineKayla [facility] LACTATE DEHYDROGENASE (LDH) 2023-07-29 21:43:00 Kayla [facility] PLASMA FREE HEMOGLOBIN 2023-07-29 21:43:00 Navjot Kayla [facility] HAPTOGLOBIN 2023-07-29 21:43:00 Enrique [facility] APTT 2023-07-29 21:43:00 Enrique [facility] ECG 12-LEAD 2023-07-29 18:05:31 Enrique Morfin [facility] ECG 12-LEAD 2023-07-29 18:05:31 Unknown, Hl7 Doctor Nazario [facility] POCT-GLUCOSE METER 2023-07-29 17:53:00 Josefa Mancia [facility] XR CHEST 1 VIEW PORTABLE / BEDSIDE 2023-07-29 17:46:00 Kayla [facility] LACTIC ACID, ARTERIAL 2023-07-29 17:45:00 Kayla [facility] OXYGEN SATURATION, MEASURED 2023-07-29 17:45:00 Kayla [facility] CBC (HEMOGRAM ONLY) 2023-07-29 17:45:00 Glo [facility] PROTHROMBIN TIME/INR 2023-07-29 17:45:00 Kayla [facility] APTT 2023-07-29 17:45:00 Enrique [facility] BLOOD GAS, ARTERIAL 2023-07-29 16:41:00 Catherine Madrigal [facility] HIGH SENSITIVITY TROPONIN I 2023-07-29 15:47:00 Kayla [facility] HEMOGLOBIN A1C 2023-07-29 15:47:00 Enrique [facility] BASIC METABOLIC PANEL 2023-07-29 15:47:00 Kayla [facility] LACTATE DEHYDROGENASE (LDH) 2023-07-29 15:47:00 Jeannine [facility] PLASMA FREE HEMOGLOBIN 2023-07-29 15:47:00 Kayla [facility] HAPTOGLOBIN 2023-07-29 15:47:00 Enrique [facility] URINALYSIS W/ MICROSCOPIC 2023-07-29 15:47:00 Kayla Goins [facility] MAGNESIUM 2023-07-29 15:47:00 Rimma [facility] SODIUM, RANDOM URINE 2023-07-29 12:56:00 Kam Dupont [facility] UREA NITROGEN, RANDOM URINE 2023-07-29 12:56:00 [facility] CREATININE, RANDOM URINE 2023-07-29 12:56:00 [facility] ECHO W CONTRAST & DOPPLER 2023-07-29 12:20:00 Blas, Moh memo [facility] POCT-GLUCOSE METER 2023-07-29 12:15:00 MassumiJosefa [facility] APTT 2023-07-29 12:07:00 Aníbal Shanks [facility] BASIC METABOLIC PANEL 2023-07-29 08:43:00 Kayla [facility] URINALYSIS WITHOUT MICROSCOPIC 2023-07-29 08:22:00 [facility] LACTATE DEHYDROGENASE (LDH) 2023-07-29 08:22:00 Rimma [facility] HAPTOGLOBIN 2023-07-29 08:22:00 Rimma [facility] PLASMA FREE HEMOGLOBIN 2023-07-29 08:22:00 ManianKathy hansa [facility] ECG 12-LEAD 2023-07-29 08:19:30 Unknown, Hl7 Doctor C [facility] ECG 12-LEAD 2023-07-29 08:19:30 Unknown, Hl7 Doctor C [facility] ECG 12-LEAD 2023-07-29 08:17:41 Unknown, Hl7 Doctor C [facility] ECG 12-LEAD 2023-07-29 08:13:58 Unknown, Hl7 Doctor C [facility] XR CHEST 1 VIEW PORTABLE / BEDSIDE 2023-07-29 07:39:00 Mohsen Alarcon [facility] HIGH SENSITIVITY TROPONIN I 2023-07-29 07:33:00 Gavino [facility] APTT 2023-07-29 06:57:00 [facility] POCT-GLUCOSE METER 2023-07-29 06:11:00 Gavino [facility] PLASMA FREE HEMOGLOBIN 2023-07-29 05:22:00 Haloot, [facility] HAPTOGLOBIN 2023-07-29 05:22:00 Haloot, [facility] LACTATE DEHYDROGENASE (LDH) 2023-07-29 05:22:00 Haloot, [facility] CBC W/PLT COUNT & AUTO DIFFERENTIAL 2023-07-29 05:22:00 [facility] PT[facility] 2023-07-29 05:22:00 Blas, [facility] PROTHROMBIN TIME/INR 2023-07-29 05:22:00 Blas, [facility] CBC W/PLT COUNT & AUTO DIFFERENTIAL 2023-07-29 05:22:00 [facility]IN[facility] W/ MICROSCOPIC 2023-07-29 02:36:00 Blas, [facility] BASIC METABOLIC PANEL 2023-07-29 02:20:00 Blas, [facility] CBC W/PLT COUNT & AUTO DIFFERENTIAL 2023-07-29 02:20:00 Blas, [facility] HEPATIC FUNCTION PANEL 2023-07-29 02:20:00 Blas, [facility] MAGNESIUM 2023-07-29 02:20:00 Blas, [facility] LACTATE DEHYDROGENASE (LDH) 2023-07-29 02:20:00 Haloot, [facility] CBC W/PLT COUNT & AUTO DIFFERENTIAL 2023-07-29 02:20:00 Blas, [facility] HEMOGLOBIN A1C 2023-07-29 02:19:00 Blas, [facility] HIGH SENSITIVITY TROPONIN I 2023-07-29 02:19:00 Blas, [facility] B-TYPE NATRIURETIC FACTOR (BNP) 2023-07-29 02:19:00 [facility], [facility] POCT-GLUCOSE METER 2023-07-29 02:18:00 [facility] ECG 12-LEAD 2023-07-29 02:05:41 Haloot, [facility] ECG 12-LEAD 2023-07-29 02:05:41 Unknown, Hl7 Doctor Nazario [facility] POCT-ACT 2023-07-29 01:00:00 Massumi, [facility] POCT-ACT 2023-07-29 00:47:00 [facility] POCT-ACT 2023-07-29 00:35:00 [facility], [facility] POCT-ACT 2023-07-29 00:05:00 [facility], [facility] POCT-ACT 2023-07-28 23:53:00 [facility], [facility] ANGIOGRAM, CORONARY, WITH LEFT HEART CATHETERIZATION 2023-07-28 23:26:00 [facility], [facility] ECG 12-LEAD 2023-07-28 23:09:22 Unknown, Hl7 Doctor Nazario [facility] ECG 12-LEAD 2023-07-28 23:09:22 Unknown, Hl7 Doctor Nazario [facility] ECG 12-LEAD 2023-07-28 23:08:23 Unknown, Hl7 Doctor C [facility] ECG 12-LEAD 2023-07-28 23:06:22 Unknown, Hl7 Doctor C [facility] ECG 12-LEAD 2023-07-28 23:05:51 BlasAmber [facility] ECG 12-LEAD 2023-07-28 23:05:51 Unknown, Hl7 Doctor C [facility] VASCULAR DIAGRAM -SCAN 2023-07-28 00:00:00 Provi steve, Default Scanning [facility] CARDIAC CATH REPORT - SCAN 2023-07-28 00:00:00 P rovider, Default Scanning [facility] Amputation of Right Leg through Tibia and Fibula [facility] Coronary Artery Bypass [facility] Medical Encounters Start Date/Time End Date/Time Encounter Type Admission Type Attending [facility] Care Facility Care Department Encounter ID Source 2023-08-14 09:27:01 Outpatient July, Leatha [facility] [id number] [facility] 2023-07-30 13:55:17 Inpatient KAYLA ACEVEDO [facility] [id number] [facility] 2023-07-29 06:57:51 Inpatient [facility] [id number] [facility] 2023-02-22 09:25:00 Outpatient Ajay Saldivar [facility] [id number] [facility] 2022-09-09 10:34:01 Outpatient Yessy Tiwarihani [facility] [id number] [facility] 2022-06-06 08:22:01 Outpatient Te Sandra [facility] [id number] [facility] 2022-01-13 08:03:01 Outpatient Sandra Tiwari [facility] [id number] [facility] 2021-11-17 10:30:02 Outpatient Sandra Tiwari [facility] [id number] [facility] 2021-10-20 13:40:02 Outpatient TiwariSandra [facility] [id number] [facility] 2021-10-15 14:04:03 Outpatient TiwariSandra joseph [facility] [id number] [facility] 2021-10-14 10:30:01 Outpatient TiwariSandra STTRUPTI [facility] [id number] [facility] 2021-10-06 09:59:03 Outpatient TiwariSandra STABRANLC [facility] [id number] [facility] 2021-07-01 08:41:04 Outpatient TiwariSandra STTRUPTI [facility] [id number] [facility] 2021-06-29 14:19:02 Outpatient TiwariSandra joseph STLC [facility] [id number] [facility] 2024-11-15 00:00:00 2024-11-15 00:00:00 TORO Mario: [address] [place] [phone] , Ph. [facility]_BAHC_Lak [facility] [id number] [facility] 2024-11-14 00:00:00 2024-11-14 00:00:00 Kale Meyer MD: [address] [place] [phone] , Ph. [facility] GC_BAHC_Lak [facility] [id number] [facility] 2024-11-11 00:00:00 2024-11-11 00:00:00 TORO Mario: [address] [place] [phone] , Ph. [facility] GC_BAHC_Lak [facility] [id number] [facility] 2024-11-06 00:00:00 2024-11-06 00:00:00 TORO Mario: [address] [place] [id number] , Ph. [facility] - GC_BAHC_Lak e [facility] [id number] [facility] 2024-10-16 00:00:00 2024-10-16 00:00:00 (TEL) STLMLC [facility] [id number] [facility] 2024-07-23 00:00:00 2024-07-23 00:00:00 (TEL) STLMLC [facility] [id number] [facility] 2024-07-08 14:33:00 2024-07-11 15:58:00 Inpatient Ashlyn Richmond [facility] ADMI [id number] [facility] 2024-07-10 12:50:00 2024-07-10 12:50:00 Outpatient Ashlyn Beauchamp HCANW REF [id number] [facility] are [facility] 2024-07-02 16:00:00 2024-07-08 15:37:00 Inpatient Eduardo Gale [facility] MEDI.[id number] [facility] [place] 2024-07-05 10:30:00 2024-07-05 10:30:00 Outpatient R BERONICA BUENO [facility] [id number] [facility] 2024-06-28 00:00:00 2024-06-28 10:39:23 Refill Archana [facility] [id number] [facility] 2024-06-14 00:00:00 2024-06-17 09:54:35 Telephone Archana [facility] [id number] [facility] 2024-04-29 00:00:00 2024-06-15 06:24:51 Orders Only Doctor Unassigned, [place] Doctor Unassigned, [place] [facility] (AMANDA) [id number] [facility] 2024-04-29 00:00:00 2024-06-15 06:24:42 Orders Only Doctor Unassigned, [place] Doctor Unassigned, [place] [facility] (AMANDA) [id number] [facility] 2024-04-29 00:00:00 2024-06-15 06:24:35 Orders Only Doctor Unassigned, [place] Doctor Unassigned, [place] [facility] (AMANDA) [id number] [id number] [facility] 2023-09-01 00:00:00 2024-06-15 02:04:11 Orders Only Doctor Unassigned, [place] Doctor Unassigned, [place] [facility] ([place]) 1.2.840.114 350.1.13.10 4.2.7.2.686 [id number] [id number] [facility] 2024-06-12 00:00:00 2024-06-12 00:00:00 OFFICE VISIT ESTAB PT LEVEL 1 STLMLC STLMLC [id number] [facility] 2024-06-10 14:15:00 2024-06-10 14:15:00 Outpatient AUDRA HAYES MITCHE[facility] [id number] [facility] 2024-04-29 00:00:00 2024-04-29 11:31:45 Letter (Out) [facility] ([place]) 1.2.840.114 350.1.13.10 4.2.7.2.686 [id number] [facility] 2024-04-19 14:00:00 2024-04-19 14:34:52 Outpatient R BERONICA BUENO [facility] [id number] [facility] 2024-04-19 14:00:00 2024-04-19 14:34:52 Office [facility] [id number] [id number] [id number] [facility] 2024-04-05 00:00:00 2024-04-05 00:00:00 (TEL) STLMLC STLMLC [id number] [facility] 2024-03-20 00:00:00 2024-03-20 00:00:00 (NV) Nurse Visit STLMLC STLMLC [id number] [facility] 2024-03-15 00:00:00 2024-03-15 00:00:00 (NV) Nurse Visit STLMLC STLMLC [id number] [facility] 2024-03-14 00:00:00 2024-03-14 00:00:00 (TEL) STLMLC STLMLC [id number] [facility] 2024-02-14 00:00:00 2024-02-14 00:00:00 OFFICE VISIT ESTAB PT LEVEL 4 STLMLC STLMLC [id number] [facility] 2024-01-24 00:00:00 2024-01-24 00:00:00 (NV) Nurse Visit STLMLC STLMLC [id number] [facility] 2024-01-08 00:00:00 2024-01-09 16:20:36 Telephone Debby Peralta Khushbu [facility] 1..840.114 350.1.13.10 4.2.7.2.686 [id number] [facility] 2024-01-05 14:00:00 2024-01-05 14:00:00 Outpatient [facility] [id number] [facility] 2024-01-03 00:00:00 2024-01-03 13:55:20 Telephone Fabian Debby [facility] 1.2.840.114 350.1.13.10 4.2.7.2.686 [id number] [facility] 2023-11-17 00:00:00 2023-11-17 00:00:00 (NV) Nurse Visit STLMLC STLMLC [id number] [facility] 2023-11-10 14:00:00 2023-11-10 15:38:44 [facility] [id number] [facility] 2023-11-10 14:00:00 2023-11-10 15:38:44 Office Visit Beronica Bueno [facility] [id number] [id number] [id number] [id number] [facility] 2023-10-20 00:00:00 2023-10-20 00:00:00 (NV) Nurse Visit STLMLC STLMLC [id number] [facility] 2023-09-18 00:00:00 2023-09-18 00:00:00 (NV) Nurse Visit STLMLC STLMLC [id number] [facility] 2023-08-23 00:00:00 2023-08-23 00:00:00 OFFICE VISIT NEW PT LEVEL 3 STLMLC STLMLC [id number] [facility] 2023-08-08 00:00:00 2023-08-08 20:14:14 Documentat Dannielle Davis [facility] [id number] [facility] 2023-08-07 00:00:00 2023-08-07 00:00:00 Outpatient JOSEFA MANCIA KATINA KATINA [id number] Katina Bourne 2023-07-28 22:56:00 2023-08-04 15:43:00 Hospital Encounter ER LvJosefa valle, Catherine Hare, Antonio Tiwari, Giselle Orozco [facility] [id number] [facility] 2023-07-28 22:56:00 2023-08-04 15:43:00 Inpatient ER [facility] [id number] [facility] 2023-08-02 01:07:51 2023-08-02 01:07:51 Outpatient [facility] [id number] [facility] 2023-08-01 00:03:46 2023-08-01 00:03:46 Outpatient JEANNINE ACEVEDOGHAN [facility] SLE [id number] [facility] 2023-08-01 00:00:00 2023-08-01 00:00:00 Outpatient FROMEJoeyAI [facility] [id number]23-08-01 00:00:00 2023-08-01 00:00:00 Outpatient ELINA_A PANRSOH PANRSOH [id number] PANRSOH 2023-07-31 00:09:55 2023-07-31 00:09:55 Outpatient KAYLA ACEVEDO [facility] [id number] [facility] 2023-07-30 07:13:33 2023-07-30 07:13:33 Outpatient INDU MATHEW [facility] [id number] [facility] 2023-07-29 17:15:22 2023-07-29 17:15:22 [facility] [id number] [facility] 2023-07-29 06:40:41 2023-07-29 06:40:41 Outpatient SERJIO MOHSEN [facility] [id number] [facility] 2023-07-28 00:00:00 2023-07-29 02:06:26 Orders Only [facility] [id number] [facility] 2023-07-28 23:20:00 2023-07-29 01:27:00 Surgery Josefa Mancia [facility] [id number] [facility] 2023-07-29 00:00:00 2023-07-29 00:00:[address] [facility] [id number] [facility] 2022-08-26 00:00:00 2022-08-26 00:00:00 (TEL) STLMLC STLC [id number] [facility] 2021-12-22 00:00:00 2021-12-22 00:00:00 (TEL) STLMLC STLC [id number] [facility] 2021-11-23 00:00:00 2021-11-23 00:00:00 OFFICE VISIT NEW PT LEVEL 3 STLMLC STLMLC [id number] [facility] 2021-11-19 00:00:00 2021-11-19 00:00:00 ([facility] Medicare Wellness STLMLC STLC [id number] [facility] 2021-11-19 00:00:00 2021-11-19 00:00:00 OFFICE VISIT ESTAB PT LEVEL 4 STLMLC STLMLC [id number] [facility] 2021-10-18 00:00:00 2021-10-18 00:00:00 (TEL) STLMLC STLMLC [id number] [facility] 2021-06-29 00:00:00 2021-06-29 00:00:00 OFFICE VISIT ESTAB PT LEVEL 4 STLMLC STLC [id number] [facility] Results Test Description Test Time Test Comments Results Result Co mments Source [id number] 12:00:00* Test Item Value Reference Range Interpretation Comme nts GLUBED (test code = GLUBED) 255 MG/DL 70-105 H [id number] 07:43:00* Test Item Value Reference Range Interpretation Comme nts GLUBED (test code = GLUBED) 123 MG/DL 70-105 H LIPID PROFILE (CORONARY RISK)2024-07-11 06:13:00* Test Item Value Reference Range Interpretation Comme nts TRIGLYCERIDES (test code = TRIG) 73 mg/dL <150 N CHOLESTEROL (test code = CHOL) 94 mg/dL <200 N HDL CHOLESTEROL (test code = HDL) 21 mg/dL >60 L Please note New Reference Interval Dec 2022 REFERENCE INTERVALLow (undesirable, high risk): < 40 mg/dLHigh (desirable, low risk): >/= 60 mg/dL LIPOPROTEIN LDL (test code = LDLC) 58 mg/dL <100 N INTERPRETATIVE D KATHY:LDL Cholesterol: Reference RangesOptimal: <100 mg/dLNear Optimal: 100 -129 mg/dLBorderline High: 130 - 159 mg/dLHigh: 160 - 189 mg/dLVery High: = or > 190 mg/dL CORONARY RISK FACTOR (test code = RISK) 4.48 CHOL/HDL RISK MALE: 1/2 AVG 3.43 FEMALE: 1/2 AVG 3.27 AVG 4.97 AVG 4.44 2X AVG 9.55 2X AVG 7.05 3X AVG 23.39 3X AVG 11.04~~~~~~~~~~~~~~~~~~ ~~~~~~~~~~~~~~~~~~~~~~~ ~~~~~~~~~~~~~~~~~~~Dolores onal Cholesterol Education (NCEP) Guidelines:~~~~~~~~~~~~ ~~~~~~~~~~~~~~~~~~~~~~~ ~~~~~~~~~~~~~~~~~~~~~~~ ~~ HDL Cholesterol<40mg/dL: HDL Cholesterol (Major risk factor for CHD)>60mg/dL: HDL Cholesterol (Negative risk factor for CHD)40-59mg/dL: Borderline Risk LDL Cholesterol<100mg/dL: Desirable LDL-C rimzlpemxrshd294-170oi/ dL: Borderline High Risk LDL-C lomrevodhfoak474-777om/ dL: High risk LDL-C concentration HDL-LDL Cholesterol is affected by a number of factors suchas smoking, age and sex.~~~~~~~~~~~~~~~~~~~ ~~~~~~~~~~~~~~~~~~~~~~~ ~~~~~~~~~~~~~~~~~~ HGBA1C - GLYCOSYLATED [id number] 06:08:00* Test Item Value Reference Range Interpretation Comme nts GLYCOSYLATED HEMOGLOBIN (HA1C) (test code = GLYHGB) 7.6 % <5.7 H Diabetic >/= 6.5%Prediabetes 5.7-6.4%Normal < 5.7% [id number] 21:14:00* Test Item Value Reference Range Interpretation Comme nts GLUBED (test code = GLUBED) 202 MG/DL 70-105 H - XR CHEST 1 [id number] 20:05:00 [facility] 1940 Sex: MPatient Name: NAVJOT DAS Unit No: [id number] EXAMS: CPT CODE: [id number] XR CHEST 1 V [id number] EXAM: AP chest LOCATION: H 12 HISTORY: Pre-op COMPARISON: None. FINDINGS: The lungs are clear.No infiltrate or effusion is seen. Calcified pleural plaque are noted. The pulmonary vasculature is normal. The heart size is enlarged. 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 The mediastinal silhouette is unremarkable. The bony thorax is intact with degenerative changes noted. IMPRESSION: No acute disease. at 2004 Reported and signed by: DAT SOL M.D. CC: Karma CF1 Yesenia CEBALLOS; Yuko Henson MD Technologist: Blanca Chand Time: DAP (Gy m2): Air Kerma(mGy): Trscr Dt/Tm: 07/10/2024 (2004) by:AngelFC Printed Date/Time: 07/10/2024 (2007) Name: DASNAVJOT [facility] Phys: Karma Fournier DO [address] : 1940 Age: 83 Sex: [place] [address] Loc: P.0905 1 Exam Date: 07/10/2024 Status: ADM IN PH: FAX: PAGE 1 Signed [id number] 17:36:00* Test Item Value Reference Range Interpretation Comme nts GLUBED (test code = GLUBED) 162 MG/DL 70-105 H UA RFLX MICR CULT IF [id number] 14:01:00* Test Item Value Reference Range Interpretation Comme nts UA COLOR (test code = COLU) COLORLESS DISCRIPT YELLOW UA APPEARANCE (test code = APPU) CLOUDY DISCRIPT CLEAR A UA GLUCOSE DIPSTICK (test code = DGLUU) NEGATIVE mg/dL NEGATIVE UA BILIRUBIN DIPSTICK (test code = BILU) NEGATIVE NEGATIVE UA KETONE DIPSTICK (test code = KETU) NEGATIVE mg/dL NEGATIVE UA SPECIFIC GRAVITY (test code = SGU) 1.015 1.005-1.030 UA BLOOD DIPSTICK (test code = MARCELO) SMALL NEGATIVE A UA PH DIPSTICK (test code = ASHLEIGH) 6.0 5.0-9.0 UA PROTEIN DIPSTICK (test code = PROU) 30 mg/dL NEGATIVE A UA UROBILINOGEN DIPSTICK (test code = URO) NORMAL mg/dL 0.2-1.0 UA NITRITE DIPSTICK (test code = LOGAN) NEGATIVE NEGATIVE UA LEUKOCYTE ESTERASE DIPSTICK (test code = LEUU) LARGE NEGATIVE A UA WBC (test code = WBCU) 6-10 #WBC/HPF 0-2 A UA RBC (test code = RBCU) 0-2 #RBC/HPF 0-2 UA BACTERIA (test code = BACU) 1+ /HPF NONE-TRACE A UA SQUAMOUS CELLS (test code = SQU) NONE SEEN /LPF NONE-TRACE UA YEAST (test code = YEASTU) 1+ /HPF NONE SEEN A Cath type: Temporary/indwellingIN date: 07/08/24IN time: 1433Elapse time: 46 Hrs 40 MinsIndication for culture: Dysuria/FrequencySpecimen Description: SCHREIBER CATHETERIZED URINECath Status: 7 days or [id number] 07:53:00* Test Item Value Reference Range Interpretation Comme nts GLUBED (test code = GLUBED) 133 MG/DL 70-105 H COMPREHENSIVE METABOLIC [id number] 04:36:00* Test Item Value Reference Range Interpretation Comme nts SODIUM (test code = NA) 132 mmol/L 136-145 L POTASSIUM (test code = K) 4.4 mmol/L 3.5-5.1 N CHLORIDE (test code = CL) 99 mmol/l 98-107 N CARBON DIOXIDE (test code = CO2) 24 mmol/L 20-31 N GLUCOSE (test code = GLU) 104 mg/dL 74-106 N BLOOD UREA NITROGEN (test code = BUN) 33 mg/dL 9-23 H GLOMERULAR FILTRATION RATE (test code = GFR) 49 mL/min >60 L The Glomerular Filtration Rate is a calculated parameterbased on serum Creatinine, patient age and sex. GFR valuesless than 60 mL/min/1.73 square meters are indicative ofChronic Kidney Disease. Values less than 15 mL/min/1.73square meters indicate Kidney failure. The calculation forGFR is based on the CKD-EPI (202) calculation. This formulais race indifferent and is the recommended formula for GFRby the National Kidney Foundation for Adults.The GFR will not calculate if the sex is unknown or if thepatient's age is <18 years. CREATININE (test code = CREAT) 1.40 mg/dL 0.70-1.30 H TOTAL PROTEIN (test code = PROT) 5.6 g/dL 5.7-8.2 L ALBUMIN (test code = ALB) 3.2 g/dL 3.2-4.8 N CALCIUM (test code = CA) 8.1 mg/dL 8.7-10.4 L BILIRUBIN TOTAL (test code = BILT) 0.3 mg/dL 0.3-1.2 N SGOT/AST (test code = AST) 18 U/L <34 N SGPT/ALT (test code = ALT) 17 U/L 10-49 N ALKALINE PHOSPHATASE (test code = ALKP) 97.0 U/L 46-116 N [id number] 04:36:00* Test Item Value Reference Range Interpretation Comme nts MAGNESIUM (test code = MAG) 2.6 mg/dL 1.6-2.6 N CBC W/AUTO [id number] 04:16:00* Test Item Value Reference Range Interpretation Comme nts WHITE BLOOD CELL (test code = WBC) 9.0 x10 3/uL 4.8-10.8 N RED BLOOD CELL (test code = RBC) 2.87 x10 6/uL 4.70-6.10 L HEMOGLOBIN (test code = HGB) 9.0 g/dL 14.0-18.0 L HEMATOCRIT (test code = HCT) 27.1 % 42.0-52.0 L MEAN CELL VOLUME (test code = MCV) 94.4 fL 80.0-94.0 H MEAN CELL HGB (test code = MCH) 31.4 pg 27-31 H MEAN CELL HGB CONCENTRATION (test code = MCHC) 33.2 G/DL 33-36.5 N RED CELL DISTRIBUTION WIDTH (test code = RDW) 13.4 % 12.9-16.9 N PLATELET COUNT (test code = PLT) 221 x10 3/uL 150-440 N MEAN PLATELET VOLUME (test c ode = MPV) 9.6 fL 8.9-12.4 N NEUTROPHIL % (test code = NT%) 70.0 % 42.2-75.2 N LYMPHOCYTE % (test code = LY%) 16.4 % 20.5-51.1 L MONOCYTE % (test code = MO%) 7.3 % 1.7-9.3 N EOSINOPHIL % (test code = EO%) 5.6 % 0.0-7.0 N BASOPHIL % (test code = BA%) 0.4 % 0-2.5 N NEUTROPHIL # (test code = NT#) 6.28 x10 3/uL 1.80-7.70 N LYMPHOCYTE # (test code = LY#) 1.47 x10 3/uL 1.00-4.80 N MONOCYTE # (test code = MO#) 0.66 x10 3/uL 0.00-0.80 N EOSINOPHIL # (test code = EO#) 0.50 x10 3/uL 0.00-0.45 H BASOPHIL # (test code = BA#) 0.04 x10 3/uL 0.0-0.20 N - DUP VEIN [id number] 20:57:00 [facility] 1940 Sex: MPatient Name: NAVJOT DAS Unit No: [id number] EXAMS: CPT CODE: [id number] [facility] VEIN [place] [id number] EXAM: Bilateral lower extremity venous Doppler. LOCATION: H 12 HISTORY: vein mapping IMPRESSION: RIGHT: Right greater saphenous vein Proximal thigh: 0.59 Mid thigh: 0.31 Distal thigh: 0.35 Knee:0.39 Proximal calf: Mid calf:0.33 Distal calf: 0.32 Femoral vein upper thigh: 0.94 cm Femoral veinmid thigh: 0.82 cm Femoral vein lower thigh: 0.87 cm SSV prox: 0.36 cm SSV mid calf: 0.37 cm SSV distal: 0.36 LEFT: Left greater saphenous vein Proximal thigh: 0.48 Mid thigh: 0.19 Distal thigh: 0.22 Knee:0.16 Proximal calf: 0.16 Mid calf:0.10 Distal calf: 0.12 Femoral vein upper thigh: 0.58 cm Femoral vein mid thigh: 0.65 cm Femoral vein lower thigh: 0.82 cm SSV prox: 0.17 cm SSV mid calf: 0.30cm SSV distal: 0.35 cm at 2056 Reported and signed by: DTA SOL M.D. Name: NAVJOT DAS [facility] Phys: Heather Molina MD R3 [address] : 1940 Age: 83 Sex: M [place] [address] Loc: P.0905 1 Exam Date: 07/09/2024 Status: ADM IN PH: FAX: PAGE 1 Signed Report(CONTINUED) Patient Name: NAVJTO DAS Unit No: [id number] EXAMS: CPT CODE: [id number] DUP VEIN [place] [id number] (Continued) CC: Yuko Henson MD; Heather Granados MD Technologist: YASMINE TURNER RDMS, AB Probe: Trscr Dt/Tm: 07/09/2024 (2056) by:Alex Printed Date/Time: 07/09/2024 (2099) Name: NAVJOT DAS [facility] Phys: Heather Molina MD R3 [address] : 1940 Age: 83 Sex: M [place] [address] Loc: P.0905 1 Exam Date: 07/09/2024 Status: ADM IN PH: FAX: PAGE 2 Signed [id number] 20:37:00* Test Item Value Reference Range Interpretation Comme nts GLUBED (test code = GLUBED) 165 MG/DL 70-105 H [id number] 16:43:00* Test Item Value Reference Range Interpretation Comme nts GLUBED (test code = GLUBED) 137 MG/DL 70-105 H [id number] 12:08:00* Test Item Value Reference Range Interpretation Comme nts GLUBED (test code = GLUBED) 256 MG/DL 70-105 H [id number] 08:22:00* Test Item Value Reference Range Interpretation Comme nts GLUBED (test code = GLUBED) 195 MG/DL 70-105 H [id number] 21:07:00* Test Item Value Reference Range Interpretation Comme nts GLUBED (test code = GLUBED) 284 MG/DL 70-105 H - DUP LE ART [id number] 20:23:00 [facility] 1940 Sex: MPatient Name: NAVJOT DAS Unit No: [id number] EXAMS: CPT CODE: [id number] DUP LE ART [place] [id number] Exam: Bilateral lower extremity radiculopathy. HISTORY: BLE PAD TECHNIQUE: Grayscale, color flow and spectral analysis of the atrial system of both lower extremities was performed. FINDINGS: Diffuse atherosclerotic plaque is present bilaterally. The right common femoral artery is triphasic. The right superficial femoral and popliteal arteries are biphasic. No occlusion is seen. The right anterior and posterior tibial arteries are monophasic. The right parenchymal artery was not visualized. The right dorsalis pedis artery is monophasic. The left common femoral and left superficial femoral arteries are triphasic. The left popliteal artery is biphasic. No occlusion is seen. The left anterior and posterior tibial, peroneal and dorsalis pedis arteries are monophasic. IMPRESSION: Atherosclerotic disease without evidence of occlusion. at 2022 Reported and signed by: DAT SOL M.D. CC: Yuko Henson MD Technologist: YASMINE TURNER RDMS, AB Probe: Trscr Dt/Tm: 07/08/2024 (2022) by:Alex Printed Date/Time: 07/08/2024 (2025) Name: NAVJOT DAS [facility] Phys: Norris Saini [address] : 1940 Age: 83 Sex: [place] [address] Loc: P.0905 1 Exam Date: 07/08/2024 Status: ADM IN PH: FAX: PAGE 1 Signed Report COMPREHENSIVE METABOLIC [id number] 18:22:00* Test Item Value Reference Range Interpretation Comme nts SODIUM (test code = NA) 133 mmol/L 136-145 L POTASSIUM (test code = K) 4.0 mmol/L 3.5-5.1 N CHLORIDE (test code = CL) 99 mmol/l 98-107 N CARBON DIOXIDE (test code = CO2) 26 mmol/L 20-31 N GLUCOSE (test code = GLU) 181 mg/dL 74-106 H BLOOD UREA NITROGEN (test code = BUN) 25 mg/dL 9-23 H GLOMERULAR FILTRATION RATE (test code = GFR) 54 mL/min >60 L The Glomerular Filtration Rate is a calculated parameterbased on serum Creatinine, patient age and sex. GFR valuesless than 60 mL/min/1.73 square meters are indicative ofChronic Kidney Disease. Values less than 15 mL/min/1.73square meters indicate Kidney failure. The calculation forGFR is based on the CKD-EPI (2020) calculation. This formulais race indifferent and is the recommended formula for GFRby the National Kidney Foundation for Adults.The GFR will not calculate if the sex is unknown or if thepatient's age is <18 years. CREATININE (test code = CREAT) 1.30 mg/dL 0.70-1.30 N TOTAL PROTEIN (test code = PROT) 5.7 g/dL 5.7-8.2 N ALBUMIN (test code = ALB) 3.3 g/dL 3.2-4.8 N CALCIUM (test code = CA) 7.9 mg/dL 8.7-10.4 L BILIRUBIN TOTAL (test code = BILT) 0.2 mg/dL 0.3-1.2 L SGOT/AST (test code = AST) 15 U/L <34 N SGPT/ALT (test code = ALT) 14 U/L 10-49 N ALKALINE PHOSPHATASE (test code = ALKP) 104.0 U/L 46-116 N CREATINE KINASE (CK)2024-07-08 18:22:00* Test Item Value Reference Range Interpretation Comme nts CREATINE KINASE (CK) (test code = CK) 33 U/L 34-171 L [id number] 18:22:00* Test Item Value Reference Range Interpretation Comme nts MAGNESIUM (test code = MAG) 1.1 mg/dL 1.6-2.6 L CBC W/AUTO [id number] 18:05:00* Test Item Value Reference Range Interpretation Comme nts WHITE BLOOD CELL (test code = WBC) 6.6 x10 3/uL 4.8-10.8 N RED BLOOD CELL (test code = RBC) 2.85 x10 6/uL 4.70-6.10 L HEMOGLOBIN (test code = HGB) 8.9 g/dL 14.0-18.0 L HEMATOCRIT (test code = HCT) 27.3 % 42.0-52.0 L MEAN CELL VOLUME (test code = MCV) 95.8 fL 80.0-94.0 H MEAN CELL HGB (test code = MCH) 31.2 pg 27-31 H MEAN CELL HGB CONCENTRATION (test code = MCHC) 32.6 G/DL 33-36.5 L RED CELL DISTRIBUTION WIDTH (test code = RDW) 13.4 % 12.9-16.9 N PLATELET COUNT (test code = PLT) 193 x10 3/uL 150-440 N MEAN PLATELET VOLUME (test c ode = MPV) 9.5 fL 8.9-12.4 N NEUTROPHIL % (test code = NT%) 67.2 % 42.2-75.2 N LYMPHOCYTE % (test code = LY%) 19.4 % 20.5-51.1 L MONOCYTE % (test code = MO%) 8.2 % 1.7-9.3 N EOSINOPHIL % (test code = EO%) 4.4 % 0.0-7.0 N BASOPHIL % (test code = BA%) 0.3 % 0-2.5 N NEUTROPHIL # (test code = NT#) 4.40 x10 3/uL 1.80-7.70 N LYMPHOCYTE # (test code = LY#) 1.27 x10 3/uL 1.00-4.80 N MONOCYTE # (test code = MO#) 0.54 x10 3/uL 0.00-0.80 N EOSINOPHIL # (test code = EO#) 0.29 x10 3/uL 0.00-0.45 N BASOPHIL # (test code = BA#) 0.02 x10 3/uL 0.0-0.20 N [id number] 16:43:00* Test Item Value Reference Range Interpretation Comme nts GLUBED (test code = GLUBED) 182 MG/DL 70-105 H GLUCOSE BEDSIDE [id number] 12:56:00* Test Item Value Reference Range Interpretation Comme nts GLUCOSE BEDSIDE TESTING (sugey t code = GLUBED) 211 mg/dL 70-110 H GLUCOSE BEDSIDE [id number] 11:36:00* Test Item Value Reference Range Interpretation Comme nts GLUCOSE BEDSIDE TESTING (sugey t code = GLUBED) 133 mg/dL 70-110 H BASIC METABOLIC [id number] 04:26:00* Test Item Value Reference Range Interpretation Comme nts SODIUM (test code = NA) 133 mmol/L 136-145 L POTASSIUM (test code = K) 4.1 mmol/L 3.4-5.0 N CHLORIDE (test code = CL) 100 mmol/L 98-107 N CARBON DIOXIDE (test code = CO2) 25 mmol/L 21-32 N ANION GAP (test code = GAP) 8 GAP calc 4-15 N GLUCOSE (test code = GLU) 138 MG/DL 70-110 H BLOOD UREA NITROGEN (test code = BUN) 27 MG/DL 7-18 H GLOMERULAR FILTRATION RATE (test code = GFR) 49 estGFR >60 L The Glomerular Filtration Rate is a calculated parameterbased on serum Creatinine, patient age and sex. GFR valuesless than 60 mL/min/1.73 square meters are indicative ofChronic Kidney Disease. Values less than 15 mL/min/1.73square meters indicate Kidney failure. The calculation forGFR is based on the CKD-EPI (2020) calculation. This formulais race indifferent and is the recommended formula for GFRby the National Kidney Foundation for Adults.The GFR will not calculate if the sex is unknown or if thepatient's age is <18 years. CREATININE (test code = CREAT) 1.4 MG/DL 0.6-1.0 H CALCIUM (test code = CA) 8.7 MG/DL 8.5-10.1 N CBC W/AUTO [id number] 04:05:00* Test Item Value Reference Range Interpretation Comme nts WHITE BLOOD CELL (test code = WBC) 7.6 K/mm3 3.5-11.0 N RED BLOOD CELL (test code = RBC) 2.74 M/mm3 4.70-6.10 L HEMOGLOBIN (test code = HGB) 8.6 G/DL 12.3-15.9 L HEMATOCRIT (test code = HCT) 26.5 % 35.8-46.7 L MEAN CELL VOLUME (test code = MCV) 96.7 Fl 86.3-98.9 N MEAN CELL HGB (test code = MCH) 31.4 pg 28.9-34.4 N MEAN CELL HGB CONCETRATION (test code = MCHC) 32.5 G/DL 32.1-34.5 N RED CELL DISTRIBUTION WIDTH (test code = RDW) 13.5 SD 11.5-14.5 N PLATELET COUNT (test code = PLT) 168 K/mm3 150-450 N MEAN PLATELET VOLUME (test c ode = MPV) 9.20 fL 7.0-9.6 N NEUTROPHIL % (test code = NT%) 67.9 % 40-76 N IMMATURE GRANULOCYTE % (test code = IG%) 0.4 % 0.0-5.0 N LYMPHOCYTE % (test code = LY%) 17.3 % 20.5-51.1 L MONOCYTE % (test code = MO%) 8.5 % 1.7-9.3 N EOSINOPHIL % (test code = EO%) 5.5 % 0.0-6.0 N BASOPHIL % (test code = BA%) 0.4 % 0.0-2.0 N NUCLEATED RBC % (test code = NRBC%) 0.0 /100WBC% 0.0-1.0 N NEUTROPHIL # (test code = NT#) 5.2 K/mm3 1.8-7.6 N IMMATURE GRANULOCYTE # (test code = IG#) 0.03 x10 3/uL 0.00-0.03 N LYMPHOCYTE # (test code = LY#) 1.3 K/mm3 0.6-3.0 N MONOCYTE # (test code = MO#) 0.7 K/mm3 0.2-1.5 N EOSINOPHIL # (test code = EO#) 0.4 K/mm3 0.0-0.4 N BASOPHIL # (test code = BA#) 0.0 K/mm3 0.0-0.2 N NUCLEATED RBC # (test code = NRBC#) 0.0 K/mm3 0.00-0.01 N GLUCOSE BEDSIDE [id number] 17:23:00* Test Item Value Reference Range Interpretation Comme nts GLUCOSE BEDSIDE TESTING (sugey t code = GLUBED) 170 mg/dL 70-110 H GLUCOSE BEDSIDE [id number] 12:22:00* Test Item Value Reference Range Interpretation Comme nts GLUCOSE BEDSIDE TESTING (sugey t code = GLUBED) 202 mg/dL 70-110 H GLUCOSE BEDSIDE [id number] 08:28:00* Test Item Value Reference Range Interpretation Comme nts GLUCOSE BEDSIDE TESTING (sugey t code = GLUBED) 165 mg/dL 70-110 H BASIC METABOLIC [id number] 04:32:00* Test Item Value Reference Range Interpretation Comme nts SODIUM (test code = NA) 132 mmol/L 136-145 L POTASSIUM (test code = K) 4.3 mmol/L 3.4-5.0 N CHLORIDE (test code = CL) 100 mmol/L 98-107 N CARBON DIOXIDE (test code = CO2) 24 mmol/L 21-32 N ANION GAP (test code = GAP) 8 GAP calc 4-15 N GLUCOSE (test code = GLU) 185 MG/DL 70-110 H BLOOD UREA NITROGEN (test code = BUN) 30 MG/DL 7-18 H GLOMERULAR FILTRATION RATE (test code = GFR) 45 estGFR >60 L The Glomerular Filtration Rate is a calculated parameterbased on serum Creatinine, patient age and sex. GFR valuesless than 60 mL/min/1.73 square meters are indicative ofChronic Kidney Disease. Values less than 15 mL/min/1.73square meters indicate Kidney failure. The calculation forGFR is based on the CKD-EPI (2020) calculation. This formulais race indifferent and is the recommended formula for GFRby the National Kidney Foundation for Adults.The GFR will not calculate if the sex is unknown or if thepatient's age is <18 years. CREATININE (test code = CREAT) 1.5 MG/DL 0.6-1.0 H CALCIUM (test code = CA) 8.3 MG/DL 8.5-10.1 L THROMBOPLASTIN TIME [id number] 04:20:00* Test Item Value Reference Range Interpretation Comme nts THROMBOPLASTIN TIME PARTIAL (test code = PTT) 70.3 SECONDS 26-35 H CBC W/AUTO [id number] 04:14:00* Test Item Value Reference Range Interpretation Comme nts WHITE BLOOD CELL (test code = WBC) 7.3 K/mm3 3.5-11.0 N RED BLOOD CELL (test code = RBC) 2.88 M/mm3 4.70-6.10 L HEMOGLOBIN (test code = HGB) 9.0 G/DL 12.3-15.9 L HEMATOCRIT (test code = HCT) 28.4 % 35.8-46.7 L MEAN CELL VOLUME (test code = MCV) 98.6 Fl 86.3-98.9 N MEAN CELL HGB (test code = MCH) 31.3 pg 28.9-34.4 N MEAN CELL HGB CONCETRATION (test code = MCHC) 31.7 G/DL 32.1-34.5 L RED CELL DISTRIBUTION WIDTH (test code = RDW) 13.5 SD 11.5-14.5 N PLATELET COUNT (test code = PLT) 176 K/mm3 150-450 N MEAN PLATELET VOLUME (test c ode = MPV) 9.10 fL 7.0-9.6 N NEUTROPHIL % (test code = NT%) 66.7 % 40-76 N IMMATURE GRANULOCYTE % (test code = IG%) 0.3 % 0.0-5.0 N LYMPHOCYTE % (test code = LY%) 20.1 % 20.5-51.1 L MONOCYTE % (test code = MO%) 6.9 % 1.7-9.3 N EOSINOPHIL % (test code = EO%) 5.5 % 0.0-6.0 N BASOPHIL % (test code = BA%) 0.5 % 0.0-2.0 N NUCLEATED RBC % (test code = NRBC%) 0.0 /100WBC% 0.0-1.0 N NEUTROPHIL # (test code = NT#) 4.9 K/mm3 1.8-7.6 N IMMATURE GRANULOCYTE # (test code = IG#) 0.02 x10 3/uL 0.00-0.03 N LYMPHOCYTE # (test code = LY#) 1.5 K/mm3 0.6-3.0 N MONOCYTE # (test code = MO#) 0.5 K/mm3 0.2-1.5 N EOSINOPHIL # (test code = EO#) 0.4 K/mm3 0.0-0.4 N BASOPHIL # (test code = BA#) 0.0 K/mm3 0.0-0.2 N NUCLEATED RBC # (test code = NRBC#) 0.0 K/mm3 0.00-0.01 N GLUCOSE BEDSIDE [id number] 21:56:00* Test Item Value Reference Range Interpretation Comme nts GLUCOSE BEDSIDE TESTING (sugey t code = GLUBED) 194 mg/dL 70-110 H GLUCOSE BEDSIDE [id number] 16:56:00* Test Item Value Reference Range Interpretation Comme nts GLUCOSE BEDSIDE TESTING (sugey t code = GLUBED) 209 mg/dL 70-110 H GLUCOSE BEDSIDE [id number] 12:52:00* Test Item Value Reference Range Interpretation Comme nts GLUCOSE BEDSIDE TESTING (sugey t code = GLUBED) 201 mg/dL 70-110 H GLUCOSE BEDSIDE [id number] 08:22:00* Test Item Value Reference Range Interpretation Comme nts GLUCOSE BEDSIDE TESTING (sugey t code = GLUBED) 132 mg/dL 70-110 H CBC W/AUTO [id number] 05:56:00* Test Item Value Reference Range Interpretation Comme nts WHITE BLOOD CELL (test code = WBC) 5.6 K/mm3 3.5-11.0 N RED BLOOD CELL (test code = RBC) 2.71 M/mm3 4.70-6.10 L HEMOGLOBIN (test code = HGB) 8.5 G/DL 12.3-15.9 L HEMATOCRIT (test code = HCT) 26.2 % 35.8-46.7 L MEAN CELL VOLUME (test code = MCV) 96.7 Fl 86.3-98.9 N MEAN CELL HGB (test code = MCH) 31.4 pg 28.9-34.4 N MEAN CELL HGB CONCETRATION (test code = MCHC) 32.4 G/DL 32.1-34.5 N RED CELL DISTRIBUTION WIDTH (test code = RDW) 13.8 SD 11.5-14.5 N PLATELET COUNT (test code = PLT) 184 K/mm3 150-450 N MEAN PLATELET VOLUME (test c ode = MPV) 9.40 fL 7.0-9.6 N NEUTROPHIL % (test code = NT%) 64.2 % 40-76 N IMMATURE GRANULOCYTE % (test code = IG%) 0.2 % 0.0-5.0 N LYMPHOCYTE % (test code = LY%) 22.2 % 20.5-51.1 N MONOCYTE % (test code = MO%) 7.5 % 1.7-9.3 N EOSINOPHIL % (test code = EO%) 5.5 % 0.0-6.0 N BASOPHIL % (test code = BA%) 0.4 % 0.0-2.0 N NUCLEATED RBC % (test code = NRBC%) 0.0 /100WBC% 0.0-1.0 N NEUTROPHIL # (test code = NT#) 3.6 K/mm3 1.8-7.6 N IMMATURE GRANULOCYTE # (test code = IG#) 0.01 x10 3/uL 0.00-0.03 N LYMPHOCYTE # (test code = LY#) 1.2 K/mm3 0.6-3.0 N MONOCYTE # (test code = MO#) 0.4 K/mm3 0.2-1.5 N EOSINOPHIL # (test code = EO#) 0.3 K/mm3 0.0-0.4 N BASOPHIL # (test code = BA#) 0.0 K/mm3 0.0-0.2 N NUCLEATED RBC # (test code = NRBC#) 0.0 K/mm3 0.00-0.01 N BASIC METABOLIC [id number] 05:37:00* Test Item Value Reference Range Interpretation Comme nts SODIUM (test code = NA) 134 mmol/L 136-145 L POTASSIUM (test code = K) 4.3 mmol/L 3.4-5.0 N CHLORIDE (test code = CL) 102 mmol/L 98-107 N CARBON DIOXIDE (test code = CO2) 25 mmol/L 21-32 N ANION GAP (test code = GAP) 7 GAP calc 4-15 N GLUCOSE (test code = GLU) 131 MG/DL 70-110 H BLOOD UREA NITROGEN (test code = BUN) 36 MG/DL 7-18 H GLOMERULAR FILTRATION RATE (test code = GFR) 54 estGFR >60 L The Glomerular Filtration Rate is a calculated parameterbased on serum Creatinine, patient age and sex. GFR valuesless than 60 mL/min/1.73 square meters are indicative ofChronic Kidney Disease. Values less than 15 mL/min/1.73square meters indicate Kidney failure. The calculation forGFR is based on the CKD-EPI (2020) calculation. This formulais race indifferent and is the recommended formula for GFRby the National Kidney Foundation for Adults.The GFR will not calculate if the sex is unknown or if thepatient's age is <18 years. CREATININE (test code = CREAT) 1.3 MG/DL 0.6-1.0 H CALCIUM (test code = CA) 8.4 MG/DL 8.5-10.1 L THROMBOPLASTIN TIME [id number] 05:30:00* Test Item Value Reference Range Interpretation Comme nts THROMBOPLASTIN TIME PARTIAL (test code = PTT) 46.9 SECONDS 26-35 H GLUCOSE BEDSIDE [id number] 22:10:00* Test Item Value Reference Range Interpretation Comme nts GLUCOSE BEDSIDE TESTING (sugey t code = GLUBED) 126 mg/dL 70-110 H GLUCOSE BEDSIDE [id number] 17:29:00* Test Item Value Reference Range Interpretation Comme nts GLUCOSE BEDSIDE TESTING (sugey t code = GLUBED) 165 mg/dL 70-110 H GLUCOSE BEDSIDE [id number] 12:30:00* Test Item Value Reference Range Interpretation Comme nts GLUCOSE BEDSIDE TESTING (sugey t code = GLUBED) 92 mg/dL 70-110 N CORTISOL [id number] 10:12:00* Test Item Value Reference Range Interpretation Comme nts CORTISOL AM (test code = CORTAM) 18.1 ug/dL 6.2-19.4 Performed At: [facility] [id number] Kyle L MD Ph:[phone] GLUCOSE BEDSIDE [id number] 09:57:00* Test Item Value Reference Range Interpretation Comme nts GLUCOSE BEDSIDE TESTING (sugey t code = GLUBED) 153 mg/dL 70-110 H GLUCOSE BEDSIDE [id number] 08:23:00* Test Item Value Reference Range Interpretation Comme nts GLUCOSE BEDSIDE TESTING (sugey t code = GLUBED) 69 mg/dL 70-110 L THROMBOPLASTIN TIME [id number] 04:01:00* Test Item Value Reference Range Interpretation Comme nts THROMBOPLASTIN TIME PARTIAL (test code = PTT) 57.7 SECONDS 26-35 H CBC W/AUTO [id number] 03:56:00* Test Item Value Reference Range Interpretation Comme nts WHITE BLOOD CELL (test code = WBC) 6.7 K/mm3 3.5-11.0 N RED BLOOD CELL (test code = RBC) 2.90 M/mm3 4.70-6.10 L HEMOGLOBIN (test code = HGB) 8.9 G/DL 12.3-15.9 L HEMATOCRIT (test code = HCT) 27.8 % 35.8-46.7 L MEAN CELL VOLUME (test code = MCV) 95.9 Fl 86.3-98.9 N MEAN CELL HGB (test code = MCH) 30.7 pg 28.9-34.4 N MEAN CELL HGB CONCETRATION (test code = MCHC) 32.0 G/DL 32.1-34.5 L RED CELL DISTRIBUTION WIDTH (test code = RDW) 13.7 SD 11.5-14.5 N PLATELET COUNT (test code = PLT) 201 K/mm3 150-450 N MEAN PLATELET VOLUME (test c ode = MPV) 8.90 fL 7.0-9.6 N NEUTROPHIL % (test code = NT%) 62.5 % 40-76 N IMMATURE GRANULOCYTE % (test code = IG%) 0.3 % 0.0-5.0 N LYMPHOCYTE % (test code = LY%) 23.7 % 20.5-51.1 N MONOCYTE % (test code = MO%) 7.7 % 1.7-9.3 N EOSINOPHIL % (test code = EO%) 5.4 % 0.0-6.0 N BASOPHIL % (test code = BA%) 0.4 % 0.0-2.0 N NUCLEATED RBC % (test code = NRBC%) 0.0 /100WBC% 0.0-1.0 N NEUTROPHIL # (test code = NT#) 4.2 K/mm3 1.8-7.6 N IMMATURE GRANULOCYTE # (test code = IG#) 0.02 x10 3/uL 0.00-0.03 N LYMPHOCYTE # (test code = LY#) 1.6 K/mm3 0.6-3.0 N MONOCYTE # (test code = MO#) 0.5 K/mm3 0.2-1.5 N EOSINOPHIL # (test code = EO#) 0.4 K/mm3 0.0-0.4 N BASOPHIL # (test code = BA#) 0.0 K/mm3 0.0-0.2 N NUCLEATED RBC # (test code = NRBC#) 0.0 K/mm3 0.00-0.01 N THROMBOPLASTIN TIME [id number] 20:39:00* Test Item Value Reference Range Interpretation Comme [facility] THROMBOPLASTIN TIME PARTIAL (test code = PTT) 47.4 SECONDS 26-35 H GLUCOSE BEDSIDE [id number] 20:23:00* Test Item Value Reference Range Interpretation Comme [facility] GLUCOSE BEDSIDE TESTING (sugey t code = GLUBED) 121 mg/dL 70-110 H GLUCOSE BEDSIDE [id number] 20:23:00* Test Item Value Reference Range Interpretation Comme [facility] GLUCOSE BEDSIDE TESTING (sugey t code = GLUBED) 127 mg/dL 70-110 H UR SODIUM [id number] 19:09:00* Test Item Value Reference Range Interpretation Comme [facility] UR SODIUM RANDOM (test code = LUZ) 81 MEQ/L See_Comment The Reference Range and Method Performance specificationshave not been established for this fluid. The test resultshould be correlated into the clinical context forinterpretation. [Automated message] The system which generated this result transmitted reference range: (). The reference range was not used to interpret this result as normal/abnormal. UR POTASSIUM [id number] 19:09:00* Test Item Value Reference Range Interpretation Comme [facility] UR POTASSIUM RANDOM (test code = KU) 19.7 MEQ/L See_Comment The Reference Ra nge and Method Performance specificationshave not been established for this fluid. The test resultshould be correlated into the clinical context forinterpretation. [Automated message] The system which generated this result transmitted reference range: (). The reference range was not used to interpret this result as normal/abnormal. UR CHLORIDE [id number] 19:09:00* Test Item Value Reference Range Interpretation Comme nts UR CHLORIDE RANDOM (test code = CLU) 74 mmol/L Not Estab. Performed At: [facility] [id number] Lamar MD Ph:[phone] UR PROTEIN [id number] 19:09:00* Test Item Value Reference Range Interpretation Comme nts UR PROTEIN TOTAL (test code = PROTU) 49 MG/DL The Reference Ra nge and Method Performance specificationshave not been established for this fluid. The test resultshould be correlated into the clinical context forinterpretation. UR CREATININE [id number] 19:09:00* Test Item Value Reference Range Interpretation Comme [facility] UR CREATININE RANDOM (test code = CREATU) 27.1 MG/DL The Reference Ra nge and Method Performance specificationshave not been established for this fluid. The test resultshould be correlated into the clinical context forinterpretation. UR OSMOLALITY [id number] 19:09:00* Test Item Value Reference Range Interpretation Comme nts UR OSMOLALITY RANDOM (test code = OSMOU) 426 mOsm/KG See_Comment INFCE Result Units: mOsmol/kg 24 hr : 300 - 900 Random: 50 - 1400 After 12hr fluid restriction: >850Performed At: [facility] [address] [id number] Lamar MD Ph:[phone] [Automated message] The system which generated this result transmitted reference range: (). The reference range was not used to interpret this result as normal/abnormal. GLUCOSE BEDSIDE [id number] 18:06:00* Test Item Value Reference Range Interpretation Comme nts GLUCOSE BEDSIDE TESTING (sugey t code = GLUBED) 206 mg/dL 70-110 H GLUCOSE BEDSIDE [id number] 14:45:00* Test Item Value Reference Range Interpretation Comme nts GLUCOSE BEDSIDE TESTING (sugey t code = GLUBED) 105 mg/dL 70-110 N THROMBOPLASTIN TIME [id number] 14:26:00* Test Item Value Reference Range Interpretation Comme nts THROMBOPLASTIN TIME PARTIAL (test code = PTT) 51.8 SECONDS 26-35 H OSMOLALITY [id number] 14:11:00* Test Item Value Reference Range Interpretation Comme nts OSMOLALITY SERUM (test code = OSMO) 312 280-301 H INFCE Result Uni ts: mOsmol/kgPerformed At: [facility] [address] [id number] Sergey Lamar MD Ph:[phone] GLUCOSE BEDSIDE [id number] 08:15:00* Test Item Value Reference Range Interpretation Comme nts GLUCOSE BEDSIDE TESTING (sugey t code = GLUBED) 71 mg/dL 70-110 N BASIC METABOLIC [id number] 06:54:00* Test Item Value Reference Range Interpretation Comme nts SODIUM (test code = NA) 135 mmol/L 136-145 L POTASSIUM (test code = K) 3.7 mmol/L 3.4-5.0 N CHLORIDE (test code = CL) 100 mmol/L 98-107 N CARBON DIOXIDE (test code = CO2) 28 mmol/L 21-32 N ANION GAP (test code = GAP) 7 GAP calc 4-15 N GLUCOSE (test code = GLU) 55 MG/DL 70-110 L BLOOD UREA NITROGEN (test code = BUN) 72 MG/DL 7-18 H GLOMERULAR FILTRATION RATE (test code = GFR) 32 estGFR >60 L The Glomerular Filtration Rate is a calculated parameterbased on serum Creatinine, patient age and sex. GFR valuesless than 60 mL/min/1.73 square meters are indicative ofChronic Kidney Disease. Values less than 15 mL/min/1.73square meters indicate Kidney failure. The calculation forGFR is based on the CKD-EPI (202) calculation. This formulais race indifferent and is the recommended formula for GFRby the National Kidney Foundation for Adults.The GFR will not calculate if the sex is unknown or if thepatient's age is <18 years. CREATININE (test code = CREAT) 2.0 MG/DL 0.6-1.0 H CALCIUM (test code = CA) 8.8 MG/DL 8.5-10.1 N THROMBOPLASTIN TIME [id number] 06:52:00* Test Item Value Reference Range Interpretation Comme nts THROMBOPLASTIN TIME PARTIAL (test code = PTT) 71.3 SECONDS 26-35 H CBC W/AUTO [id number] 05:23:00* Test Item Value Reference Range Interpretation Comme nts WHITE BLOOD CELL (test code = WBC) 8.4 K/mm3 3.5-11.0 N RED BLOOD CELL (test code = RBC) 3.02 M/mm3 4.70-6.10 L HEMOGLOBIN (test code = HGB) 9.5 G/DL 12.3-15.9 L HEMATOCRIT (test code = HCT) 29.4 % 35.8-46.7 L MEAN CELL VOLUME (test code = MCV) 97.4 Fl 86.3-98.9 N MEAN CELL HGB (test code = MCH) 31.5 pg 28.9-34.4 N MEAN CELL HGB CONCETRATION (test code = MCHC) 32.3 G/DL 32.1-34.5 N RED CELL DISTRIBUTION WIDTH (test code = RDW) 15.2 SD 11.5-14.5 H PLATELET COUNT (test code = PLT) 236 K/mm3 150-450 N MEAN PLATELET VOLUME (test c ode = MPV) 9.20 fL 7.0-9.6 N NEUTROPHIL % (test code = NT%) 68.6 % 40-76 IMMATURE GRANULOCYTE % (test code = IG%) 0.2 % 0.0-5.0 N LYMPHOCYTE % (test code = LY%) 19.8 % 20.5-51.1 L MONOCYTE % (test code = MO%) 7.5 % 1.7-9.3 N EOSINOPHIL % (test code = EO%) 3.3 % 0.0-6.0 N BASOPHIL % (test code = BA%) 0.6 % 0.0-2.0 N NUCLEATED RBC % (test code = NRBC%) 0.0 /100WBC% 0.0-1.0 N NEUTROPHIL # (test code = NT#) 5.7 K/mm3 1.8-7.6 N IMMATURE GRANULOCYTE # (test code = IG#) 0.02 x10 3/uL 0.00-0.03 N LYMPHOCYTE # (test code = LY#) 1.7 K/mm3 0.6-3.0 N MONOCYTE # (test code = MO#) 0.6 K/mm3 0.2-1.5 N EOSINOPHIL # (test code = EO#) 0.3 K/mm3 0.0-0.4 N BASOPHIL # (test code = BA#) 0.1 K/mm3 0.0-0.2 N NUCLEATED RBC # (test code = NRBC#) 0.0 K/mm3 0.00-0.01 N GLUCOSE BEDSIDE [id number] 20:54:00* Test Item Value Reference Range Interpretation Comme nts GLUCOSE BEDSIDE TESTING (sugey t code = GLUBED) 158 mg/dL 70-110 H GLUCOSE BEDSIDE [id number] 17:56:00* Test Item Value Reference Range Interpretation Comme nts GLUCOSE BEDSIDE TESTING (sugey t code = GLUBED) 133 mg/dL 70-110 H THROMBOPLASTIN TIME [id number] 13:50:00* Test Item Value Reference Range Interpretation Comme nts THROMBOPLASTIN TIME PARTIAL (test code = PTT) 55.1 SECONDS 26-35 H TROP-I HIGH [id number] 13:25:00* Test Item Value Reference Range Interpretation Comme nts TROP-I HIGH SENSITIVITY (test code = TROPIHS) 38.0 ng/L 0-78 N CAUTION: Units o f the current test methodology (ng/L) differfrom the prior test methodology (ng/mL) by a factor of 1000. 99th Percentile Upper Reference Limit (URL):Females: 54 ng/LMales: 79 ng/L In order to distinguish acute elevations of high sensitivitytroponin from other clinical conditions, the FourthUniversal Definition of Myocardial Infarction stressesclinical assessment and the demonstration of a rise and/orfall in serial troponin results above the URL. Results from different methodologies should not be comparedto one another as quantitative results and URLs may varyby method. BASIC METABOLIC [id number] 13:15:00* Test Item Value Reference Range Interpretation Comme nts SODIUM (test code = NA) 137 mmol/L 136-145 N POTASSIUM (test code = K) 3.9 mmol/L 3.4-5.0 N CHLORIDE (test code = CL) 99 mmol/L 98-107 N CARBON DIOXIDE (test code = CO2) 26 mmol/L 21-32 N ANION GAP (test code = GAP) 12 GAP calc 4-15 N GLUCOSE (test code = GLU) 92 MG/DL 70-110 N BLOOD UREA NITROGEN (test code = BUN) 78 MG/DL 7-18 H GLOMERULAR FILTRATION RATE (test code = GFR) 30 estGFR >60 L The Glomerular Filtration Rate is a calculated parameterbased on serum Creatinine, patient age and sex. GFR valuesless than 60 mL/min/1.73 square meters are indicative ofChronic Kidney Disease. Values less than 15 mL/min/1.73square meters indicate Kidney failure. The calculation forGFR is based on the CKD-EPI (2020) calculation. This formulais race indifferent and is the recommended formula for GFRby the National Kidney Foundation for Adults.The GFR will not calculate if the sex is unknown or if thepatient's age is <18 years. CREATININE (test code = CREAT) 2.1 MG/DL 0.6-1.0 H CALCIUM (test code = CA) 9.1 MG/DL 8.5-10.1 N GLUCOSE BEDSIDE [id number] 12:41:00* Test Item Value Reference Range Interpretation Comme nts GLUCOSE BEDSIDE TESTING (sugey t code = GLUBED) 106 mg/dL 70-110 N UR SODIUM [id number] 10:33:00* Test Item Value Reference Range Interpretation Comme nts UR SODIUM RANDOM (test code = LUZ) 81 MEQ/L The Reference Range and Method Performance specificationshave not been established for this fluid. The test resultshould be correlated into the clinical context forinterpretation. UR POTASSIUM [id number] 10:33:00* Test Item Value Reference Range Interpretation Comme nts UR POTASSIUM RANDOM (test code = KU) 19.7 MEQ/L The Reference Ra nge and Method Performance specificationshave not been established for this fluid. The test resultshould be correlated into the clinical context forinterpretation. GLUCOSE BEDSIDE [id number] 08:32:00* Test Item Value Reference Range Interpretation Comme nts GLUCOSE BEDSIDE TESTING (sugey t code = GLUBED) 237 mg/dL 70-110 H THROMBOPLASTIN TIME [id number] 05:38:00* Test Item Value Reference Range Interpretation Comme nts THROMBOPLASTIN TIME PARTIAL (test code = PTT) 51.8 SECONDS 26-35 H TROP-I HIGH [id number] 05:33:00* Test Item Value Reference Range Interpretation Comme nts TROP-I HIGH SENSITIVITY (test code = TROPIHS) 38.3 ng/L 0-78 N CAUTION: Units o f the current test methodology (ng/L) differfrom the prior test methodology (ng/mL) by a factor of 1000. 99th Percentile Upper Reference Limit (URL):Females: 54 ng/LMales: 79 ng/L In order to distinguish acute elevations of high sensitivitytroponin from other clinical conditions, the FourthUniversal Definition of Myocardial Infarction stressesclinical assessment and the demonstration of a rise and/orfall in serial troponin results above the URL. Results from different methodologies should not be comparedto one another as quantitative results and URLs may varyby method. COMPREHENSIVE METABOLIC [id number] 05:18:00* Test Item Value Reference Range Interpretation Comme nts SODIUM (test code = NA) 131 mmol/L 136-145 L POTASSIUM (test code = K) 5.9 mmol/L 3.4-5.0 HH RESULTS CALLED Charisma PERERA RNREAD BACK & CONFIRMED? YESBY [id number] 07/03/24 0516 CHLORIDE (test code = CL) 98 mmol/L 98-107 N CARBON DIOXIDE (test code = CO2) 23 mmol/L 21-32 N ANION GAP (test code = GAP) 10 GAP calc 4-15 N GLUCOSE (test code = GLU) 284 MG/DL 70-110 H BLOOD UREA NITROGEN (test code = BUN) 85 MG/DL 7-18 H GLOMERULAR FILTRATION RATE (test code = GFR) 30 estGFR >60 L The Glomerular Filtration Rate is a calculated parameterbased on serum Creatinine, patient age and sex. GFR valuesless than 60 mL/min/1.73 square meters are indicative ofChronic Kidney Disease. Values less than 15 mL/min/1.73square meters indicate Kidney failure. The calculation forGFR is based on the CKD-EPI (2020) calculation. This formulais race indifferent and is the recommended formula for GFRby the National Kidney Foundation for Adults.The GFR will not calculate if the sex is unknown or if thepatient's age is <18 years. CREATININE (test code = CREAT) 2.1 MG/DL 0.6-1.0 H TOTAL PROTEIN (test code = PROT) 6.9 G/DL 6.4-8.2 N ALBUMIN (test code = ALB) 2.8 G/DL 3.4-5.0 L GLOBULIN (test code = GLOB) 4.1 GM/dL ALBUMIN/GLOBULIN RATIO (test code = A/G) 0.7 RATIO 1.2-2.2 L CALCIUM (test code = CA) 8.8 MG/DL 8.5-10.1 N BILIRUBIN TOTAL (test code = BILT) 0.4 MG/DL 0.0-1.0 N SGOT/AST (test code = AST) 29 Unit/L 15-37 N SGPT/ALT (test code = ALT) 22 Unit/L 30-65 L ALKALINE PHOSPHATASE TOTAL (test code = ALKP) 133 Unit/L 50-136 N LIPID PROFILE (CORONARY RISK)2024-07-03 05:18:00* Test Item Value Reference Range Interpretation Comme nts TRIGLYCERIDES (test code = TRIG) 64 MG/DL 0-150 N CHOLESTEROL (test code = CHOL) 110 MG/DL 133-200 L CHOLESTEROL/HDL RATIO (test code = CHOLHDL) 2.75 RATIO See_Comment RISK ASSOC IATED WITH CHOL/HDL RATIOS: RISK MALE FEMALE1/2 AVERAGE 3.43 3.27AVERAGE 4.97 4.442X AVERAGE 9.55 7.053X AVERAGE 23.39 11.04 NOTE THAT THE REFERENCE VALUE IS RELATED TO RISK LEVELS ASRECOMMENDED BY THE [facility]. [Automated message] The system which generated this result transmitted reference range: 0-. The reference range was not used to interpret this result as normal/abnormal. HDL CHOLESTEROL (test code = HDL) 40 MG/DL See_Comment L [Automated messa ge] The system which generated this result transmitted reference range: 60-. The reference range was not used to interpret this result as normal/abnormal. NON-HDL CHOLESTEROL (test code = NHDL) 70 mg/dL <130 LIPOPROTEIN LDL (test code = LDL) 63 MG/DL 0-129 N LDL/HDL (test code = LDL/HDL) 1.57 Ratio See_Comment N [Automated [employer]] The system which generated this result transmitted reference range: 1.48-3.22 Avg. The reference range was not used to interpret this result as normal/abnormal. CREATINE KINASE (CK)2024-07-03 05:18:00* Test Item Value Reference Range Interpretation Comme nts CREATINE KINASE (CK) (test c ode = CK) 182 Unit/L 21-215 N THYROID STIMULATING [id number] 05:18:00* Test Item Value Reference Range Interpretation Comme nts THYROID STIMULATING HORMONE (test code = TSH) 1.59 mcIU/ML 0.34-4.82 N [id number] 05:06:00* Test Item Value Reference Range Interpretation Comme nts GLYCOSYLATED HEMOGLOBIN (HA1 C) (test code = GLYHGB) 8.2 % A1C 4.8-6.0 H ESTIMATED AVERAGE GLUCOSE (t est code = EAG) 189 MG/DLest URIC [id number] 05:01:00* Test Item Value Reference Range Interpretation Comme nts URIC ACID (test code = URIC) 6.1 MG/DL 3.5-7.2 N CORTISOL [id number] 05:01:00* Test Item Value Reference Range Interpretation Comme nts CORTISOL AM (test code = CORTAM) CBC W/AUTO [id number] 04:39:00* Test Item Value Reference Range Interpretation Comme nts WHITE BLOOD CELL (test code = WBC) 8.1 K/mm3 3.5-11.0 N RED BLOOD CELL (test code = RBC) 3.19 M/mm3 4.70-6.10 L HEMOGLOBIN (test code = HGB) 9.9 G/DL 12.3-15.9 L HEMATOCRIT (test code = HCT) 29.9 % 35.8-46.7 L MEAN CELL VOLUME (test code = MCV) 93.7 Fl 86.3-98.9 N MEAN CELL HGB (test code = MCH) 31.0 pg 28.9-34.4 N MEAN CELL HGB CONCETRATION (test code = MCHC) 33.1 G/DL 32.1-34.5 N RED CELL DISTRIBUTION WIDTH (test code = RDW) 14.3 SD 11.5-14.5 N PLATELET COUNT (test code = PLT) 255 K/mm3 150-450 N MEAN PLATELET VOLUME (test c ode = MPV) 9.40 fL 7.0-9.6 N NEUTROPHIL % (test code = NT%) 78.0 % 40-76 H IMMATURE GRANULOCYTE % (test code = IG%) 0.4 % 0.0-5.0 N LYMPHOCYTE % (test code = LY%) 14.4 % 20.5-51.1 L MONOCYTE % (test code = MO%) 6.8 % 1.7-9.3 N EOSINOPHIL % (test code = EO%) 0.2 % 0.0-6.0 N BASOPHIL % (test code = BA%) 0.2 % 0.0-2.0 N NUCLEATED RBC % (test code = NRBC%) 0.0 /100WBC% 0.0-1.0 N NEUTROPHIL # (test code = NT#) 6.3 K/mm3 1.8-7.6 N IMMATURE GRANULOCYTE # (test code = IG#) 0.03 x10 3/uL 0.00-0.03 N LYMPHOCYTE # (test code = LY#) 1.2 K/mm3 0.6-3.0 N MONOCYTE # (test code = MO#) 0.6 K/mm3 0.2-1.5 N EOSINOPHIL # (test code = EO#) 0.0 K/mm3 0.0-0.4 N BASOPHIL # (test code = BA#) 0.0 K/mm3 0.0-0.2 N NUCLEATED RBC # (test code = NRBC#) 0.0 K/mm3 0.00-0.01 N GLUCOSE BEDSIDE [id number] 02:40:00* Test Item Value Reference Range Interpretation Comme nts GLUCOSE BEDSIDE TESTING (sugey t code = GLUBED) 280 mg/dL 70-110 H CBC W/AUTO [id number] 00:31:00* Test Item Value Reference Range Interpretation Comme nts WHITE BLOOD CELL (test code = WBC) 8.8 K/mm3 3.5-11.0 N RED BLOOD CELL (test code = RBC) 3.14 M/mm3 4.70-6.10 L HEMOGLOBIN (test code = HGB) 9.8 G/DL 12.3-15.9 L HEMATOCRIT (test code = HCT) 30.0 % 35.8-46.7 L MEAN CELL VOLUME (test code = MCV) 95.5 Fl 86.3-98.9 N MEAN CELL HGB (test code = MCH) 31.2 pg 28.9-34.4 N MEAN CELL HGB CONCETRATION (test code = MCHC) 32.7 G/DL 32.1-34.5 N RED CELL DISTRIBUTION WIDTH (test code = RDW) 14.2 SD 11.5-14.5 N PLATELET COUNT (test code = PLT) 230 K/mm3 150-450 N MEAN PLATELET VOLUME (test code = MPV) 9.00 fL 7.0-9.6 N NEUTROPHIL % (test code = NT%) 75.6 % 40-76 N IMMATURE GRANULOCYTE % (test code = IG%) 0.2 % 0.0-5.0 N LYMPHOCYTE % (test code = LY%) 15.0 % 20.5-51.1 L MONOCYTE % (test code = MO%) 8.4 % 1.7-9.3 N EOSINOPHIL % (test code = EO%) 0.5 % 0.0-6.0 N BASOPHIL % (test code = BA%) 0.3 % 0.0-2.0 N NUCLEATED RBC % (test code = NRBC%) 0.0 /100WBC% 0.0-1.0 N NEUTROPHIL # (test code = NT#) 6.7 K/mm3 1.8-7.6 N IMMATURE GRANULOCYTE # (test code = IG#) 0.02 x10 3/uL 0.00-0.03 N LYMPHOCYTE # (test code = LY#) 1.3 K/mm3 0.6-3.0 N MONOCYTE # (test code = MO#) 0.7 K/mm3 0.2-1.5 N EOSINOPHIL # (test code = EO#) 0.0 K/mm3 0.0-0.4 N BASOPHIL # (test code = BA#) 0.0 K/mm3 0.0-0.2 N NUCLEATED RBC # (test code = NRBC#) 0.0 K/mm3 0.00-0.01 N MANUAL DIFF REQUIRED (test code = MDIFF) NO DIFF/SCN CRITERIA SLIDE REVIEW CONSISTANT WITH AUTO DIFFERENTIAL. Comment: IF NOT ALREADY DONE WITHIN THE LAST 24 [id number] 20:50:00* Test Item Value Reference Range Interpretation Comme nts POTASSIUM (test code = K) 5.6 mmol/L 3.4-5.0 H NO VISIBLE HEMOL YSIS TROP-I HIGH [id number] 20:47:00* Test Item Value Reference Range Interpretation Comme nts TROP-I HIGH SENSITIVITY (test code = TROPIHS) 24.1 ng/L 0-78 N CAUTION: Units o f the current test methodology (ng/L) differfrom the prior test methodology (ng/mL) by a factor of 1000. 99th Percentile Upper Reference Limit (URL):Females: 54 ng/LMales: 79 ng/L In order to distinguish acute elevations of high sensitivitytroponin from other clinical conditions, the FourthUniversal Definition of Myocardial Infarction stressesclinical assessment and the demonstration of a rise and/orfall in serial troponin results above the URL. Results from different methodologies should not be comparedto one another as quantitative results and URLs may varyby method. LACTIC [id number] 20:46:00* Test Item Value Reference Range Interpretation Comme nts LACTIC ACID (test code = LACT) 1.9 mmol/L 0.4-1.9 N PROTHROMBIN [id number] 20:38:00* Test Item Value Reference Range Interpretation Comme nts PT PATIENT (test code = PTP) 11.6 SECONDS 9.3-12.9 N INTERNATIONAL NORMAL RATIO (test code = INR) 1.04 INR Unit 0.8-1.2 N TARGET INR BY INDICATION Indication INR1. Prophylaxis of venous thrombosis 2.0 - 3.0 (orthopedic surgery), Prophylaxis of venous thrombosis (other than high-risk surgery), Treatment of Deep Vein Thrombosis/Pulmonary Embolism, Prevention of systemic embolism - Tissue heart valves, Acute Myocardial Infarction (to prevent systemic embolism), Valvular heart disease, Acute Myocardial Infarction (to prevent systemic embolism), Valvular heart disease, Atrial Fibrillation, Bileaflet mechanical valve in aortic position.2. Mechanical prosthetic valves (high risk), 2.5 - 3.5 Presence of Lupus Anticoagulant or Antiphospholipid Antibodies, Prevention of systemic embolism - Acute Myocardial Infarction (to prevent recurrent infarct). THROMBOPLASTIN TIME [id number] 20:38:00* Test Item Value Reference Range Interpretation Comme nts THROMBOPLASTIN TIME PARTIAL (test code = PTT) 24.0 SECONDS 26-35 L BASIC METABOLIC [id number] 20:37:00* Test Item Value Reference Range Interpretation Comme nts SODIUM (test code = NA) 133 mmol/L 136-145 L POTASSIUM (test code = K) 5.4 mmol/L 3.4-5.0 H CHLORIDE (test code = CL) 101 mmol/L 98-107 N CARBON DIOXIDE (test code = CO2) 19 mmol/L 21-32 L ANION GAP (test code = GAP) 13 GAP calc 4-15 N GLUCOSE (test code = GLU) 144 MG/DL 70-110 H BLOOD UREA NITROGEN (test code = BUN) 88 MG/DL 7-18 H GLOMERULAR FILTRATION RATE (test code = GFR) 29 estGFR >60 L The Glomerular Filtration Rate is a calculated parameterbased on serum Creatinine, patient age and sex. GFR valuesless than 60 mL/min/1.73 square meters are indicative ofChronic Kidney Disease. Values less than 15 mL/min/1.73square meters indicate Kidney failure. The calculation forGFR is based on the CKD-EPI (2020) calculation. This formulais race indifferent and is the recommended formula for GFRby the National Kidney Foundation for Adults.The GFR will not calculate if the sex is unknown or if thepatient's age is <18 years. CREATININE (test code = CREAT) 2.2 MG/DL 0.6-1.0 H CALCIUM (test code = CA) 9.2 MG/DL 8.5-10.1 N [id number] 16:41:00* Test Item Value Reference Range Interpretation Comme nts POTASSIUM (test code = K) 6.7 mmol/L 3.4-5.0 HH RESULTS CALLED Charisma PALACIOS BACK & CONFIRMED? YBY [id number] 07/02/24 1640NO VISIBLE HEMOLYSIS ACETONE QUAL [id number] 16:41:00* Test Item Value Reference Range Interpretation Comme nts ACETONE QUAL SERUM (test cod e = ACETNQL) NEGATIVE SCREEN NEG LACTIC [id number] 16:25:00* Test Item Value Reference Range Interpretation Comme nts LACTIC ACID (test code = LACT) 1.3 mmol/L 0.4-1.9 N VENOUS BLOOD [id number] 15:58:00* Test Item Value Reference Range Interpretation Comme nts VENOUS BLOOD GAS PH (test co de = PHV) 7.24 pH units 7.26-7.43 L VENOUS BLOOD GAS PCO2 (test code = PCO2V) 26 mmHg 33-58 L VENOUS BLOOD GAS PO2 (test c ode = PO2V) 32 mmHg 80-100 L VBG HCO3 (test code = HCO3V) 11.1 mmol/L 22.0-26.0 L VBG BASE EXCESS (test code = RITU) -14.5 mmol/L -2.0-2.0 L VENOUS BLOOD GAS O2 SAT. (te st code = O2SATV) 52 % (calc) 72-77 L VENOUS BLOOD GAS FIO2 (test code = FIO2V) 21 % 21-100 N VENOUS BLOOD GAS DELIVERY (t est code = DELV) RA Descript VENOUS BLOOD GAS SITE (test code = SITEV) Other Site DESCRIPTION COVID 19 INHOUSE [id number] 14:36:00* Test Item Value Reference Range Interpretation Comme nts COVID 19 INHOUSE AG (test code = QAQTU43VSHL) NEGATIVE Negative Per injection mold tooling technician , negative results should be treated aspresumptive and, if inconsistent with clinical signs andsymptoms or necessary for patient management, should betested with an alternative molecular assay. Negative resultsdo not preclude SARS-CoV-2 infection and should not be usedas the sole basis for patient management decisions. Negative results should be considered in the context of apatient's recent exposures, history, presence of clinicalsigns and symptoms consistent with COVID-19. BASIC METABOLIC [id number] 14:29:00* Test Item Value Reference Range Interpretation Comme nts SODIUM (test code = NA) 128 mmol/L 136-145 L POTASSIUM (test code = K) TEST NOT PERFORMED mmol/L 3.4-5.0 UNABLE TO RESULT DUE HEMOLYSIS CALLED TO Terry cesar BACK & CONFIRMED? JUSTO ReynoldsLAB.[facility] 07/02/24 1428 CHLORIDE (test code = CL) 99 mmol/L 98-107 N CARBON DIOXIDE (test code = CO2) 15 mmol/L 21-32 L ANION GAP (test code = GAP) 14 GAP calc 4-15 N GLUCOSE (test code = GLU) 173 MG/DL 70-110 H BLOOD UREA NITROGEN (test code = BUN) 89 MG/DL 7-18 H GLOMERULAR FILTRATION RATE (test code = GFR) 29 estGFR >60 L The Glomerular Filtration Rate is a calculated parameterbased on serum Creatinine, patient age and sex. GFR valuesless than 60 mL/min/1.73 square meters are indicative ofChronic Kidney Disease. Values less than 15 mL/min/1.73square meters indicate Kidney failure. The calculation forGFR is based on the CKD-EPI (2020) calculation. This formulais race indifferent and is the recommended formula for GFRby the National Kidney Foundation for Adults.The GFR will not calculate if the sex is unknown or if thepatient's age is <18 years. CREATININE (test code = CREAT) 2.2 MG/DL 0.6-1.0 H CALCIUM (test code = CA) 9.4 MG/DL 8.5-10.1 N TROP-I HIGH [id number] 14:29:00* Test Item Value Reference Range Interpretation Comme nts TROP-I HIGH SENSITIVITY (test code = TROPIHS) 20.5 ng/L 0-78 N CAUTION: Units o f the current test methodology (ng/L) differfrom the prior test methodology (ng/mL) by a factor of 1000. 99th Percentile Upper Reference Limit (URL):Females: 54 ng/LMales: 79 ng/L In order to distinguish acute elevations of high sensitivitytroponin from other clinical conditions, the FourthUniversal Definition of Myocardial Infarction stressesclinical assessment and the demonstration of a rise and/orfall in serial troponin results above the URL. Results from different methodologies should not be comparedto one another as quantitative results and URLs may varyby method. DIABETES TESTING [id number] 17:12:48Ordered by an unspecified provider. [facility] [id number] 17:12:48 Ordered by an unspecified provider.[facility]DI[facility] TESTING [id number] 17:12:47Ordered by an unspecified provider.[facility]PO[facility] Hemoglobin A1C [id number] 20:08:00* Test Item Value Reference Range Interpretation Comme [facility] POCT HBA1C (test code = 4548-4) 9.0 % 4-6 A Lab Interpretation (test cod e = 61027-0) Abnormal [facility] HospitalC[facility], [id number] 00:00:00* Test Item Value Reference Range Interpretation Comme [facility] CULTURE, URINE (test code = 630-4) SPECIMEN NUMBER: [id number] REFERRAL- REQUEST/[id number] 16:17:40Ordered by an unspecified provider. [facility] CATH REPORT - [id number] 10:55:33 Ordered by an unspecified provider.[facility] 2023-08-04 11:25:59* Test Item Value Reference Range Interpretation Comme [facility] POC-Glucose Meter (test code = 1538) 195 mg/dL 70-110 H : TESTED AT [facility] [address] [facility], [address]: Creping Machine Operator/Train Caller ID = [id number] for LAUREL SHARONA Lab Interpretation (test code = 39349-5) Abnormal [facility] [id number] 11:25:59* Test Item Value Reference Range Interpretation Comme nts POC-GLUCOSE METER (BEAKER) (test code = 1538) 195 mg/dL 70-110 H : TESTED AT [facility] [address] [facility], [address]: Creping Machine Operator/Train Caller ID = [id number] for BARRAGANHYUNSHARONA VASCULAR DIAGRAM -[id number] 11:08:45Ordered by an unspecified provider.[facility] [id number] 07:48:04* Test Item Value Reference Range Interpretation Comme nts POC-GLUCOSE METER (BEAKER) (test code = 1538) 145 mg/dL 70-110 H : TESTED AT [facility] [address] [place], [address]: Creping Machine Operator/Train Caller ID = [id number] for SHARONA BARRAGAN BASIC METABOLIC [id number] 05:26:51* Test Item Value Reference Range Interpretation Comme nts SODIUM (BEAKER) (test code = 381) 135 meq/L 136-145 L POTASSIUM (BEAKER) (test code = 379) 4.3 meq/L 3.5-5.1 CHLORIDE (BEAKER) (test code = 382) 101 meq/L 98-107 CO2 (BEAKER) (test code = 355) 25 meq/L 22-29 BLOOD UREA NITROGEN (BEAKER) (test code = 354) 27 mg/dL 7-21 H CREATININE (BEAKER) (test code = 358) 1.43 mg/dL 0.57-1.25 H GLUCOSE RANDOM (BEAKER) (test code = 652) 120 mg/dL 70-105 H CALCIUM (BEAKER) (test code = 697) 8.9 mg/dL 8.4-10.2 EGFR (BEAKER) (test code = 1092) 49 mL/min/1.73 sq m Interpretation of eG FR values Stage Description Result G1 Normal or high >=90 G2 Mildly decreased 60-89 G3a Mildly to moderately 45-59 G3b Moderately to severely 30-44 G4 Severly decreased 15-29 G5 Kidney failure <15Reported eGFR is based on the CKD-EPI 2020 equation that does not use a race coefficientEstimated GFR is not as accurate as Creatinine Clearance in predicting glomerular filtration rate. Estimated GFR is not applicable for dialysis patients Creping Machine Operator ID - [id number] 05:26:51* Test Item Value Reference Range Interpretation Comme nts MAGNESIUM (BEAKER) (test cod e = 627) 1.8 mg/dL 1.6-2.6 Creping Machine Operator ID - ADMINCBC W/PLT COUNT & AUTO [id number] 04:50:57* Test Item Value Reference Range Interpretation Comme nts WHITE BLOOD CELL COUNT (BEAK ER) (test code = 775) 8.5 K/ L 3.5-10.5 RED BLOOD CELL COUNT (BEAKER ) (test code = 761) 3.25 M/ L 4.63-6.08 L HEMOGLOBIN (BEAKER) (test co de = 410) 9.8 GM/DL 13.7-17.5 L HEMATOCRIT (BEAKER) (test co de = 411) 29.1 % 40.1-51.0 L MEAN CORPUSCULAR VOLUME (AURA KER) (test code = 753) 90 fL 79-92 MEAN CORPUSCULAR HEMOGLOBIN (BEAKER) (test code = 751) 30.2 pg 25.7-32.2 MEAN CORPUSCULAR HEMOGLOBIN CONC (BEAKER) (test code = 752) 33.7 GM/DL 32.3-36.5 RED CELL DISTRIBUTION WIDTH (BEAKER) (test code = 412) 13.6 % 11.6-14.4 PLATELET COUNT (BEAKER) (sugey t code = 756) 222 K/CU MM 150-450 MEAN PLATELET VOLUME (BEAKER ) (test code = 754) 9.4 fL 9.4-12.4 NUCLEATED RED BLOOD CELLS (BEAKER) (test code = 413) 0 /100 WBC 0-0 NEUTROPHILS RELATIVE PERCENT (BEAKER) (test code = 429) 67 % LYMPHOCYTES RELATIVE PERCENT (BEAKER) (test code = 430) 16 % MONOCYTES RELATIVE PERCENT (BEAKER) (test code = 431) 11 % EOSINOPHILS RELATIVE PERCENT (BEAKER) (test code = 432) 6 % BASOPHILS RELATIVE PERCENT (BEAKER) (test code = 437) 1 % NEUTROPHILS ABSOLUTE COUNT (BEAKER) (test code = 670) 5.70 K/ L 1.78-5.38 H LYMPHOCYTES ABSOLUTE COUNT (BEAKER) (test code = 414) 1.32 K/ L 1.32-3.57 MONOCYTES ABSOLUTE COUNT (BE SARAHI) (test code = 415) 0.90 K/ L 0.30-0.82 H EOSINOPHILS ABSOLUTE COUNT (BEAKER) (test code = 416) 0.47 K/ L 0.04-0.54 BASOPHILS ABSOLUTE COUNT (BE SARAHI) (test code = 417) 0.08 K/ L 0.01-0.08 IMMATURE GRANULOCYTES-RELATI VE PERCENT (BEAKER) (test code = 2801) 0.70 % 0.00-1.00 POCT-GLUCOSE [id number] 20:54:53* Test Item Value Reference Range Interpretation Comme nts POC-GLUCOSE METER (BEAKER) (test code = 1538) 184 mg/dL 70-110 H : TESTED AT [place] [id number] [facility], [address]: Creping Machine Operator/Train Caller ID = [id number] for BERHANE MARTE POCT-GLUCOSE [id number] 17:30:33* Test Item Value Reference Range Interpretation Comme nts POC-GLUCOSE METER (BEAKER) (test code = 1538) 182 mg/dL 70-110 H : TESTED AT [address], [address]: Creping Machine Operator/Train Caller ID = [id number] for BARBARAMATHIEUANDREE POCT-GLUCOSE [id number] 12:22:50* Test Item Value Reference Range Interpretation Comme nts POC-GLUCOSE METER (BEAKER) (test code = 1538) 199 mg/dL 70-110 H : TESTED AT [place] [id number] [facility], [address]: Creping Machine Operator/Train Caller ID = [id number] for ANDREE MONSIVAIS POCT-GLUCOSE [id number] 08:16:34* Test Item Value Reference Range Interpretation Comme nts POC-GLUCOSE METER (BEAKER) (test code = 1538) 152 mg/dL 70-110 H : TESTED AT [address], [address]: Creping Machine Operator/Train Caller ID = [id number] for BARBARAMATHIEUANDREE BASIC METABOLIC [id number] 07:18:43* Test Item Value Reference Range Interpretation Comme nts SODIUM (BEAKER) (test code = 381) 134 meq/L 136-145 L POTASSIUM (BEAKER) (test code = 379) 3.7 meq/L 3.5-5.1 CHLORIDE (BEAKER) (test code = 382) 97 meq/L 98-107 L CO2 (BEAKER) (test code = 355) 28 meq/L 22-29 BLOOD UREA NITROGEN (BEAKER) (test code = 354) 26 mg/dL 7-21 H CREATININE (BEAKER) (test code = 358) 1.47 mg/dL 0.57-1.25 H GLUCOSE RANDOM (BEAKER) (test code = 652) 143 mg/dL 70-105 H CALCIUM (BEAKER) (test code = 697) 9.3 mg/dL 8.4-10.2 EGFR (BEAKER) (test code = 1092) 47 mL/min/1.73 sq m Interpretation of eG FR values Stage Description Result G1 Normal or high >=90 G2 Mildly decreased 60-89 G3a Mildly to moderately 45-59 G3b Moderately to severely 30-44 G4 Severly decreased 15-29 G5 Kidney failure <15Reported eGFR is based on the CKD-EPI 2020 equation that does not use a race coefficientEstimated GFR is not as accurate as Creatinine Clearance in predicting glomerular filtration rate. Estimated GFR is not applicable for dialysis patients Creping Machine Operator ID - [id number] 07:18:43* Test Item Value Reference Range Interpretation Comme nts MAGNESIUM (BEAKER) (test cod e = 627) 1.5 mg/dL 1.6-2.6 L Creping Machine Operator ID - ADMINB-TYPE NATRIURETIC FACTOR (BNP)2023-08-03 05:45:39* Test Item Value Reference Range Interpretation Comme nts B-TYPE NATRIURETIC PEPTIDE ( BEAKER) (test code = 700) 379 pg/mL 0-100 H Creping Machine Operator ID - ADMINCBC W/PLT COUNT & AUTO [id number] 05:25:58* Test Item Value Reference Range Interpretation Comme nts WHITE BLOOD CELL COUNT (BEAK ER) (test code = 775) 7.5 K/ L 3.5-10.5 RED BLOOD CELL COUNT (BEAKER ) (test code = 761) 3.33 M/ L 4.63-6.08 L HEMOGLOBIN (BEAKER) (test co de = 410) 10.1 GM/DL 13.7-17.5 L HEMATOCRIT (BEAKER) (test co de = 411) 30.0 % 40.1-51.0 L MEAN CORPUSCULAR VOLUME (AURA KER) (test code = 753) 90 fL 79-92 MEAN CORPUSCULAR HEMOGLOBIN (BEAKER) (test code = 751) 30.3 pg 25.7-32.2 MEAN CORPUSCULAR HEMOGLOBIN CONC (BEAKER) (test code = 752) 33.7 GM/DL 32.3-36.5 RED CELL DISTRIBUTION WIDTH (BEAKER) (test code = 412) 13.5 % 11.6-14.4 PLATELET COUNT (BEAKER) (sugey t code = 756) 211 K/CU MM 150-450 MEAN PLATELET VOLUME (BEAKER ) (test code = 754) 9.8 fL 9.4-12.4 NUCLEATED RED BLOOD CELLS (BEAKER) (test code = 413) 0 /100 WBC 0-0 NEUTROPHILS RELATIVE PERCENT (BEAKER) (test code = 429) 70 % LYMPHOCYTES RELATIVE PERCENT (BEAKER) (test code = 430) 13 % MONOCYTES RELATIVE PERCENT (BEAKER) (test code = 431) 11 % EOSINOPHILS RELATIVE PERCENT (BEAKER) (test code = 432) 5 % BASOPHILS RELATIVE PERCENT (BEAKER) (test code = 437) 1 % NEUTROPHILS ABSOLUTE COUNT (BEAKER) (test code = 670) 5.24 K/ L 1.78-5.38 LYMPHOCYTES ABSOLUTE COUNT (BEAKER) (test code = 414) 1.00 K/ L 1.32-3.57 L MONOCYTES ABSOLUTE COUNT (BE SARAHI) (test code = 415) 0.79 K/ L 0.30-0.82 EOSINOPHILS ABSOLUTE COUNT (BEAKER) (test code = 416) 0.38 K/ L 0.04-0.54 BASOPHILS ABSOLUTE COUNT (BE SARAHI) (test code = 417) 0.07 K/ L 0.01-0.08 IMMATURE GRANULOCYTES-RELATI VE PERCENT (BEAKER) (test code = 2801) 0.70 % 0.00-1.00 POCT-GLUCOSE [id number] 22:10:11* Test Item Value Reference Range Interpretation Comme nts POC-GLUCOSE METER (BEAKER) (test code = 1538) 175 mg/dL 70-110 H : TESTED AT [facility] [address] [facility], [address]: Creping Machine Operator/Train Caller ID = [id number] for BERHANE MARTE POCT-GLUCOSE [id number] 17:28:46* Test Item Value Reference Range Interpretation Comme nts POC-GLUCOSE METER (BEAKER) (test code = 1538) 219 mg/dL 70-110 H : TESTED AT [facility] [address] [facility], [address]: Creping Machine Operator/Train Caller ID = [id number] for ANDREE MONSIVAIS XR chest 1 view portable / [id number] 08:28:13XR CHEST 1 VIEW PORTABLE / BEDSIDE INDICATION: pulmonary edema COMPARISON: Prior day's exam TECHNIQUE: Portable frontal view(s) of the chest. FINDINGS: Support Lines and Devices: A right IJ catheter was removed. Lungs and pleura: Unchanged airspace and pleural opacities. Nopneumothorax identified. Heart and mediastinum: Stable contours. Stable surgical changes. Additional findings: None.[facility] PORT[facility] / [id number] 08:28:13 [facility] D[facility] : 1940 Sex: MXR CHEST 1 VIEW PORTABLE / BEDSIDEINDICATION: pulmonary edemaCOMPARISON: Prior day's examTECHNIQUE: Portable frontal view(s) of the chest. FINDINGS: Support Lines and Devices: A right IJ catheter was removed. Lungs and pleura: Unchanged airspace and pleural opacities. Nopneumothorax identified.Heart andmediastinum: Stable contours. Stable surgical changes.Additional findings: None.IMPRESSION:1. A right IJ catheter was removed.2. Scattered pleural/ parenchymal calcifications are present.Electronically Signed By: Rivera Venegas08/02/2023 08:30 CDTWorkstation Name: [id number] 08:21:59* Test Item Value Reference Range Interpretation Comme [facility] POC-GLUCOSE METER (BEAKER) (test code = 1538) 143 mg/dL 70-110 H : TESTED AT [facility] [address] [facility], [address]: Creping Machine Operator/Train Caller ID = [id number] for ANDREE MONSIVAIS BASIC METABOLIC [id number] 05:35:09* Test Item Value Reference Range Interpretation Comme nts SODIUM (BEAKER) (test code = 381) 137 meq/L 136-145 POTASSIUM (BEAKER) (test code = 379) 3.8 meq/L 3.5-5.1 CHLORIDE (BEAKER) (test code = 382) 98 meq/L 98-107 CO2 (BEAKER) (test code = 355) 28 meq/L 22-29 BLOOD UREA NITROGEN (BEAKER) (test code = 354) 21 mg/dL 7-21 CREATININE (BEAKER) (test code = 358) 1.25 mg/dL 0.57-1.25 GLUCOSE RANDOM (BEAKER) (test code = 652) 108 mg/dL 70-105 H CALCIUM (BEAKER) (test code = 697) 9.4 mg/dL 8.4-10.2 EGFR (BEAKER) (test code = 1092) 57 mL/min/1.73 sq m Interpretation of eG FR values Stage Description Result G1 Normal or high >=90 G2 Mildly decreased 60-89 G3a Mildly to moderately 45-59 G3b Moderately to severely 30-44 G4 Severly decreased 15-29 G5 Kidney failure <15Reported eGFR is based on the CKD-EPI 2020 equation that does not use a race coefficientEstimated GFR is not as accurate as Creatinine Clearance in predicting glomerular filtration rate. Estimated GFR is not applicable for dialysis patients Creping Machine Operator ID - [id number] 05:35:09* Test Item Value Reference Range Interpretation Comme nts MAGNESIUM (BEAKER) (test cod e = 627) 1.6 mg/dL 1.6-2.6 Creping Machine Operator ID - ADMINHEPATIC FUNCTION [id number] 05:35:09* Test Item Value Reference Range Interpretation Comme nts TOTAL PROTEIN (BEAKER) (test code = 770) 5.7 gm/dL 6.0-8.3 L ALBUMIN (BEAKER) (test code = 1145) 3.4 g/dL 3.5-5.0 L BILIRUBIN TOTAL (BEAKER) (te st code = 377) 0.8 mg/dL 0.2-1.2 BILIRUBIN DIRECT (BEAKER) (t est code = 706) 0.4 mg/dL 0.1-0.5 ALKALINE PHOSPHATASE (BEAKER ) (test code = 346) 66 U/L 40-150 AST (SGOT) (BEAKER) (test co de = 353) 17 U/L 5-34 ALT (SGPT) (BEAKER) (test co de = 347) 14 U/L 6-55 Creping Machine Operator ID - ADMINLACTIC ACID, [id number] 05:09:55* Test Item Value Reference Range Interpretation Comme nts LACTATE BLOOD VENOUS (2) (BE SARAHI) (test code = 2872) 0.68 mmol/L 0.50-2.00 Creping Machine Operator ID - ADMINCBC W/PLT COUNT & AUTO [id number] 04:47:24* Test Item Value Reference Range Interpretation Comme nts WHITE BLOOD CELL COUNT (BEAK ER) (test code = 775) 7.2 K/ L 3.5-10.5 RED BLOOD CELL COUNT (BEAKER ) (test code = 761) 3.26 M/ L 4.63-6.08 L HEMOGLOBIN (BEAKER) (test co de = 410) 10.2 GM/DL 13.7-17.5 L HEMATOCRIT (BEAKER) (test co de = 411) 29.6 % 40.1-51.0 L MEAN CORPUSCULAR VOLUME (AURA KER) (test code = 753) 91 fL 79-92 MEAN CORPUSCULAR HEMOGLOBIN (BEAKER) (test code = 751) 31.3 pg 25.7-32.2 MEAN CORPUSCULAR HEMOGLOBIN CONC (BEAKER) (test code = 752) 34.5 GM/DL 32.3-36.5 RED CELL DISTRIBUTION WIDTH (BEAKER) (test code = 412) 13.5 % 11.6-14.4 PLATELET COUNT (BEAKER) (sugey t code = 756) 193 K/CU MM 150-450 MEAN PLATELET VOLUME (BEAKER ) (test code = 754) 9.6 fL 9.4-12.4 NUCLEATED RED BLOOD CELLS (BEAKER) (test code = 413) 0 /100 WBC 0-0 NEUTROPHILS RELATIVE PERCENT (BEAKER) (test code = 429) 71 % LYMPHOCYTES RELATIVE PERCENT (BEAKER) (test code = 430) 13 % MONOCYTES RELATIVE PERCENT (BEAKER) (test code = 431) 11 % EOSINOPHILS RELATIVE PERCENT (BEAKER) (test code = 432) 4 % BASOPHILS RELATIVE PERCENT (BEAKER) (test code = 437) 1 % NEUTROPHILS ABSOLUTE COUNT (BEAKER) (test code = 670) 5.08 K/ L 1.78-5.38 LYMPHOCYTES ABSOLUTE COUNT (BEAKER) (test code = 414) 0.95 K/ L 1.32-3.57 L MONOCYTES ABSOLUTE COUNT (BE SARAHI) (test code = 415) 0.82 K/ L 0.30-0.82 EOSINOPHILS ABSOLUTE COUNT (BEAKER) (test code = 416) 0.25 K/ L 0.04-0.54 BASOPHILS ABSOLUTE COUNT (BE SARAHI) (test code = 417) 0.04 K/ L 0.01-0.08 IMMATURE GRANULOCYTES-RELATI VE PERCENT (BEAKER) (test code = 2801) 0.40 % 0.00-1.00 CALCIUM, [id number] 04:38:18* Test Item Value Reference Range Interpretation Comme nts CALCIUM IONIZED (BEAKER) (te st code = 698) 1.12 mmol/L 1.12-1.27 PH, BLOOD (BEAKER) (test cod e = 1810) 7.49 OXYGEN SATURATION, [id number] 04:37:48* Test Item Value Reference Range Interpretation Comme nts O2 SATURATION (MEASURED) (BE SARAHI) (test code = 1455) 74.5 % POCT-GLUCOSE [id number] 20:35:54* Test Item Value Reference Range Interpretation Comme nts POC-GLUCOSE METER (BEAKER) (test code = 1538) 171 mg/dL 70-110 H : TESTED AT [facility] [address] [place], [address]: Creping Machine Operator/Train Caller ID = [id number] for Ericka Martinez BASIC METABOLIC [id number] 18:19:32* Test Item Value Reference Range Interpretation Comme nts SODIUM (BEAKER) (test code = 381) 136 meq/L 136-145 POTASSIUM (BEAKER) (test code = 379) 3.8 meq/L 3.5-5.1 CHLORIDE (BEAKER) (test code = 382) 96 meq/L 98-107 L CO2 (BEAKER) (test code = 355) 28 meq/L 22-29 BLOOD UREA NITROGEN (BEAKER) (test code = 354) 22 mg/dL 7-21 H CREATININE (BEAKER) (test code = 358) 1.29 mg/dL 0.57-1.25 H GLUCOSE RANDOM (BEAKER) (test code = 652) 182 mg/dL 70-105 H CALCIUM (BEAKER) (test code = 697) 9.6 mg/dL 8.4-10.2 EGFR (BEAKER) (test code = 1092) 55 mL/min/1.73 sq m Interpretation of eG FR values Stage Description Result G1 Normal or high >=90 G2 Mildly decreased 60-89 G3a Mildly to moderately 45-59 G3b Moderately to severely 30-44 G4 Severly decreased 15-29 G5 Kidney failure <15Reported eGFR is based on the CKD-EPI 2021 equation that does not use a race coefficientEstimated GFR is not as accurate as Creatinine Clearance in predicting glomerular filtration rate. Estimated GFR is not applicable for dialysis patients Creping Machine Operator ID - TEO WBASIC METABOLIC [id number] 17:14:15* Test Item Value Reference Range Interpretation Comme nts SODIUM (BEAKER) (test code = 381) 137 meq/L 136-145 POTASSIUM (BEAKER) (test code = 379) 4.2 meq/L 3.5-5.1 Specimen moderat howard hemolyzed CHLORIDE (BEAKER) (test code = 382) 97 meq/L 98-107 L CO2 (BEAKER) (test code = 355) 27 meq/L 22-29 BLOOD UREA NITROGEN (BEAKER) (test code = 354) 22 mg/dL 7-21 H CREATININE (BEAKER) (test code = 358) 1.30 mg/dL 0.57-1.25 H Specimen moderat howard hemolyzed GLUCOSE RANDOM (BEAKER) (test code = 652) 152 mg/dL 70-105 H CALCIUM (BEAKER) (test code = 697) 9.6 mg/dL 8.4-10.2 EGFR (BEAKER) (test code = 1092) 55 mL/min/1.73 sq m Interpretation of eG FR values Stage Description Result G1 Normal or high >=90 G2 Mildly decreased 60-89 G3a Mildly to moderately 45-59 G3b Moderately to severely 30-44 G4 Severly decreased 15-29 G5 Kidney failure <15Reported eGFR is based on the CKD-EPI 2021 equation that does not use a race coefficientEstimated GFR is not as accurate as Creatinine Clearance in predicting glomerular filtration rate. Estimated GFR is not applicable for dialysis patients Creping Machine Operator ID Adrian BRUCE WPOCT-GLUCOSE [id number] 16:48:59* Test Item Value Reference Range Interpretation Comme nts POC-GLUCOSE METER (BEAKER) (test code = 1538) 168 mg/dL 70-110 H : TESTED AT [facility] [address] [facility], [address]: Creping Machine Operator/Train Caller ID = [id number] for Arthur (contract)Meredith LACTIC ACID, [id number] 12:20:58* Test Item Value Reference Range Interpretation Comme [facility] LACTATE BLOOD VENOUS (2) (BE SARAHI) (test code = 2872) 0.96 mmol/L 0.50-2.00 Creping Machine Operator ID - TEO WPOCT-GLUCOSE [id number] 11:40:24* Test Item Value Reference Range Interpretation Comme [facility] POC-GLUCOSE METER (BEAKER) (test code = 1538) 148 mg/dL 70-110 H : TESTED AT [facility] [address] [facility], [address]: Creping Machine Operator/Train Caller ID = [id number] for Arthur (contract)Meredith OXYGEN SATURATION, [id number] 08:00:31* Test Item Value Reference Range Interpretation Comme [facility] O2 SATURATION (MEASURED) (TRACE MCCLAIN) (test code = 1455) 57.1 % LACTIC ACID, [id number] 07:38:09* Test Item Value Reference Range Interpretation Comme [facility] LACTATE BLOOD VENOUS (2) (BE SARAHI) (test code = 2872) 0.99 mmol/L 0.50-2.00 Creping Machine Operator ID - ADMINXR CHEST 1 VIEW PORTABLE / [id number] 07:32:03 [facility] : 1940 Sex: MXR CHEST 1 VIEW PORTABLE / BEDSIDEINDICATION: pulmonary edemaCOMPARISON: Prior day's examTECHNIQUE: Portable frontal view(s) of the chest. FINDINGS: Support Lines and Devices: Stable. Lungs and pleura: Unchanged airspace and pleural opacities. Nopneumothorax identified.Heart and mediastinum: Stable contours. Stable surgical changes.Additional findings: Mild to moderate spondylosis and facet arthropathyare present within the spine.IMPRESSION:1. No significant change from prior exam.2. Scattered pleural/parenchymal calcifications.Electronically Signed By: Rivera Venegas08/01/2023 07:35 CDTWorkstation Name: [id number] 07:25:40* Test Item Value Reference Range Interpretation Comme nts POC-GLUCOSE METER (BEAKER) (test code = 1538) 130 mg/dL 70-110 H : TESTED AT [facility] [address] [place], [address]: Creping Machine Operator/Train Caller ID = [id number] for ONI MOY CALCIUM, [id number] 04:14:24* Test Item Value Reference Range Interpretation Comme nts CALCIUM IONIZED (BEAKER) (te st code = 698) 1.15 mmol/L 1.12-1.27 PH, BLOOD (BEAKER) (test cod e = 1810) 7.45 OXYGEN SATURATION, [id number] 04:14:03* Test Item Value Reference Range Interpretation Comme nts O2 SATURATION (MEASURED) (BE SARAHI) (test code = 1455) 57.8 % BASIC METABOLIC [id number] 03:19:07* Test Item Value Reference Range Interpretation Comme nts SODIUM (BEAKER) (test code = 381) 137 meq/L 136-145 POTASSIUM (BEAKER) (test code = 379) 3.5 meq/L 3.5-5.1 CHLORIDE (BEAKER) (test code = 382) 99 meq/L 98-107 CO2 (BEAKER) (test code = 355) 28 meq/L 22-29 BLOOD UREA NITROGEN (BEAKER) (test code = 354) 28 mg/dL 7-21 H CREATININE (BEAKER) (test code = 358) 1.35 mg/dL 0.57-1.25 H GLUCOSE RANDOM (BEAKER) (test code = 652) 118 mg/dL 70-105 H CALCIUM (BEAKER) (test code = 697) 9.1 mg/dL 8.4-10.2 EGFR (BEAKER) (test code = 1092) 52 mL/min/1.73 sq m Interpretation of eG FR values Stage Description Result G1 Normal or high >=90 G2 Mildly decreased 60-89 G3a Mildly to moderately 45-59 G3b Moderately to severely 30-44 G4 Severly decreased 15-29 G5 Kidney failure <15Reported eGFR is based on the CKD-EPI 2020 equation that does not use a race coefficientEstimated GFR is not as accurate as Creatinine Clearance in predicting glomerular filtration rate. Estimated GFR is not applicable for dialysis patients Creping Machine Operator ID - [id number] 03:19:07* Test Item Value Reference Range Interpretation Comme nts MAGNESIUM (BEAKER) (test cod e = 627) 1.7 mg/dL 1.6-2.6 Creping Machine Operator ID - ADMINHEPATIC FUNCTION [id number] 03:19:07* Test Item Value Reference Range Interpretation Comme nts TOTAL PROTEIN (BEAKER) (test code = 770) 5.6 gm/dL 6.0-8.3 L ALBUMIN (BEAKER) (test code = 1145) 3.3 g/dL 3.5-5.0 L BILIRUBIN TOTAL (BEAKER) (te st code = 377) 0.7 mg/dL 0.2-1.2 BILIRUBIN DIRECT (BEAKER) (t est code = 706) 0.3 mg/dL 0.1-0.5 ALKALINE PHOSPHATASE (BEAKER ) (test code = 346) 58 U/L 40-150 AST (SGOT) (BEAKER) (test co de = 353) 22 U/L 5-34 ALT (SGPT) (BEAKER) (test co de = 347) 16 U/L 6-55 Creping Machine Operator ID - ADMINCBC W/PLT COUNT & AUTO [id number] 02:49:35* Test Item Value Reference Range Interpretation Comme nts WHITE BLOOD CELL COUNT (BEAK ER) (test code = 775) 6.9 K/ L 3.5-10.5 RED BLOOD CELL COUNT (BEAKER ) (test code = 761) 3.00 M/ L 4.63-6.08 L HEMOGLOBIN (BEAKER) (test co de = 410) 9.2 GM/DL 13.7-17.5 L HEMATOCRIT (BEAKER) (test co de = 411) 26.8 % 40.1-51.0 L MEAN CORPUSCULAR VOLUME (AURA KER) (test code = 753) 89 fL 79-92 MEAN CORPUSCULAR HEMOGLOBIN (BEAKER) (test code = 751) 30.7 pg 25.7-32.2 MEAN CORPUSCULAR HEMOGLOBIN CONC (BEAKER) (test code = 752) 34.3 GM/DL 32.3-36.5 RED CELL DISTRIBUTION WIDTH (BEAKER) (test code = 412) 13.6 % 11.6-14.4 PLATELET COUNT (BEAKER) (sugey t code = 756) 155 K/CU MM 150-450 MEAN PLATELET VOLUME (BEAKER ) (test code = 754) 10.3 fL 9.4-12.4 NUCLEATED RED BLOOD CELLS (BEAKER) (test code = 413) 0 /100 WBC 0-0 NEUTROPHILS RELATIVE PERCENT (BEAKER) (test code = 429) 77 % LYMPHOCYTES RELATIVE PERCENT (BEAKER) (test code = 430) 10 % MONOCYTES RELATIVE PERCENT (BEAKER) (test code = 431) 8 % EOSINOPHILS RELATIVE PERCENT (BEAKER) (test code = 432) 4 % BASOPHILS RELATIVE PERCENT (BEAKER) (test code = 437) 0 % NEUTROPHILS ABSOLUTE COUNT (BEAKER) (test code = 670) 5.29 K/ L 1.78-5.38 LYMPHOCYTES ABSOLUTE COUNT (BEAKER) (test code = 414) 0.70 K/ L 1.32-3.57 L MONOCYTES ABSOLUTE COUNT (BE SARAHI) (test code = 415) 0.57 K/ L 0.30-0.82 EOSINOPHILS ABSOLUTE COUNT (BEAKER) (test code = 416) 0.27 K/ L 0.04-0.54 BASOPHILS ABSOLUTE COUNT (BE SARAHI) (test code = 417) 0.03 K/ L 0.01-0.08 IMMATURE GRANULOCYTES-RELATI VE PERCENT (BEAKER) (test code = 2801) 0.60 % 0.00-1.00 LACTIC ACID, [id number] 00:52:54* Test Item Value Reference Range Interpretation Comme [facility] LACTATE BLOOD VENOUS (2) (BEAKER) (test code = 2872) 0.62 mmol/L 0.50-2.00 Specimen slightl y hemolyzed Creping Machine Operator ID - ADMINPOCT-GLUCOSE [id number] 20:41:52* Test Item Value Reference Range Interpretation Comme [facility] POC-GLUCOSE METER (BEAKER) (test code = 1538) 193 mg/dL 70-110 H : TESTED AT [facility] [address] [place], [address]: Creping Machine Operator/Train Caller ID = [id number] for Mandy Turcios LACTIC ACID, [id number] 18:29:40* Test Item Value Reference Range Interpretation Comme nts LACTATE BLOOD VENOUS (2) (BE SARAHI) (test code = 2872) 1.46 mmol/L 0.50-2.00 Creping Machine Operator ID - ADMINOXYGEN SATURATION, [id number] 18:04:16* Test Item Value Reference Range Interpretation Comme nts O2 SATURATION (MEASURED) (BE SARAHI) (test code = 1455) 83.0 % BASIC METABOLIC [id number] 16:51:41* Test Item Value Reference Range Interpretation Comme nts SODIUM (BEAKER) (test code = 381) 136 meq/L 136-145 POTASSIUM (BEAKER) (test code = 379) 3.6 meq/L 3.5-5.1 Specimen slightl y hemolyzed CHLORIDE (BEAKER) (test code = 382) 101 meq/L 98-107 CO2 (BEAKER) (test code = 355) 23 meq/L 22-29 BLOOD UREA NITROGEN (BEAKER) (test code = 354) 31 mg/dL 7-21 H CREATININE (BEAKER) (test code = 358) 1.23 mg/dL 0.57-1.25 Specimen slightl y hemolyzed GLUCOSE RANDOM (BEAKER) (test code = 652) 141 mg/dL 70-105 H CALCIUM (BEAKER) (test code = 697) 9.1 mg/dL 8.4-10.2 EGFR (BEAKER) (test code = 1092) 59 mL/min/1.73 sq m Interpretation of eG FR values Stage Description Result G1 Normal or high >=90 G2 Mildly decreased 60-89 G3a Mildly to moderately 45-59 G3b Moderately to severely 30-44 G4 Severly decreased 15-29 G5 Kidney failure <15Reported eGFR is based on the CKD-EPI 2020 equation that does not use a race coefficientEstimated GFR is not as accurate as Creatinine Clearance in predicting glomerular filtration rate. Estimated GFR is not applicable for dialysis patients Creping Machine Operator ID - ADMINPOCT-GLUCOSE [id number] 16:37:42* Test Item Value Reference Range Interpretation Comme nts POC-GLUCOSE METER (BEAKER) (test code = 1538) 150 mg/dL 70-110 H : TESTED AT [facility] [address] [facility], [address]: Creping Machine Operator/Train Caller ID = [id number] for Arthur (contract)Meredith PLASMA FREE [id number] 14:53:02* Test Item Value Reference Range Interpretation Comme nts HEMOGLOBIN PLASMA (BEAKER) ( test code = 1054) < mg/dl <=30.0 OXYGEN SATURATION, [id number] 13:41:36* Test Item Value Reference Range Interpretation Comme nts O2 SATURATION (MEASURED) (BE SARAHI) (test code = 1455) 60.6 % LACTIC ACID, [id number] 12:36:50* Test Item Value Reference Range Interpretation Comme nts LACTATE BLOOD VENOUS (2) (BE SARAHI) (test code = 2872) 1.51 mmol/L 0.50-2.00 Creping Machine Operator ID - ADMINPOCT-GLUCOSE [id number] 11:18:00* Test Item Value Reference Range Interpretation Comme nts POC-GLUCOSE METER (KYUNG) (test code = 1538) 179 mg/dL 70-110 H : TESTED AT [facility] [address] [facility], [address]: Creping Machine Operator/Train Caller ID = [id number] for ONI MOY [id number] 11:06:02* Test Item Value Reference Range Interpretation Comme nts HAPTOGLOBIN (TRACEAKER) (test c ode = 366) 68 mg/dL 14-258 Creping Machine Operator ID - ADMINLACTATE DEHYDROGENASE (LDH)2023-07-31 10:02:17* Test Item Value Reference Range Interpretation Comme nts LACTATE DEHYDROGENASE (BEAKE R) (test code = 635) 381 U/L 125-220 H Creping Machine Operator ID - ADMINXR CHEST 1 VIEW PORTABLE / [id number] 07:41:26 [facility] : 1940 Sex: MXR CHEST 1 VIEW PORTABLE / BEDSIDEINDICATION: pulmonary edemaCOMPARISON: Prior day's examTECHNIQUE: Portable frontal view(s) of the chest. FINDINGS: Support Lines and Devices: An impella device was removed. Otherwise, thelife support lines and tubes appear unchanged. Lungs and pleura: Unchanged airspaceand pleural opacities. Nopneumothorax identified.Heart and mediastinum: Stable contours. Stable surgical changes.Additional findings: None.IMPRESSION:The impella device was removed.Electronically Signed By: Rivera Venegas07/31/2023 07:43 CDTWorkstation Name: [id number] 07:12:23* Test Item Value Reference Range Interpretation Comme [facility] POC-GLUCOSE METER (TRACEAKER) (test code = 1538) 149 mg/dL 70-110 H : TESTED AT [facility] [address] [place] [address], [address]: Creping Machine Operator/Train Caller ID = [id number] for VITALY MYOMI LACTIC ACID, [id number] 07:01:36* Test Item Value Reference Range Interpretation Comme [facility] LACTATE BLOOD VENOUS (2) (BE SARAHI) (test code = 2872) 0.68 mmol/L 0.50-2.00 Creping Machine Operator ID - ADMINECG 12 [id number] 06:21:36Ventricular Rate 92 BPMAtrial Rate 92 BPMQRS Duration 92 msQ-T Interval 364 msQTC Calculation(Bazett) 450 msR [place] -11 degreesT [place] 123 degrees Normal sinus rhythmInferior infarct , age undeterminedAbnormal ECGWhen compared with ECG of 29-JUL-2023 02:05,Sinus rhythm has replaced Ectopic atrial rhythmQRS duration has decreasedST no longer elevated in Inferior leadsST now depressed in Anterior leadsNonspecific T wave abnormality has replaced inverted T waves in Inferior leadsNonspecific T wave ab normality, worse in Anterolateral leadsConfirmed by MD RHIANNON, SUDHAKAR Guevara ([id number]) on 07/31/2023 6:21:32 [facility] 2023-07-31 04:27:02* Test Item Value Reference Range Interpretation Comme nts LACTATE BLOOD VENOUS (2) (BE SARAHI) (test code = 2872) 0.60 mmol/L 0.50-2.00 Creping Machine Operator ID - ADMINOperator ID - ADMINHEPATIC FUNCTION [id number] 03:58:22 * Test Item Value Reference Range Interpretation Comme nts TOTAL PROTEIN (BEAKER) (test code = 770) 5.0 gm/dL 6.0-8.3 L Specimen sligh tly hemolyzed ALBUMIN (BEAKER) (test code = 1145) 3.0 g/dL 3.5-5.0 L Specimen slightl y hemolyzed BILIRUBIN TOTAL (BEAKER) (test code = 377) 0.6 mg/dL 0.2-1.2 Specimen slightl y hemolyzed BILIRUBIN DIRECT (BEAKER) (test code = 706) 0.2 mg/dL 0.1-0.5 Specimen slightl y hemolyzed ALKALINE PHOSPHATASE (BEAKER) (test code = 346) 49 U/L 40-150 AST (SGOT) (BEAKER) (test code = 353) 39 U/L 5-34 H Specimen sligh tly hemolyzed ALT (SGPT) (BEAKER) (test code = 347) 22 U/L 6-55 Specimen sligh tly hemolyzed Creping Machine Operator ID - [id number] 03:58:17* Test Item Value Reference Range Interpretation Comme nts MAGNESIUM (BEAKER) (test code = 627) 1.9 mg/dL 1.6-2.6 Specimen sligh tly hemolyzed Creping Machine Operator ID - ADMINBASIC METABOLIC [id number] 03:58:17* Test Item Value Reference Range Interpretation Comme nts SODIUM (BEAKER) (test code = 381) 133 meq/L 136-145 L POTASSIUM (BEAKER) (test code = 379) 3.8 meq/L 3.5-5.1 Specimen slightl y hemolyzed CHLORIDE (BEAKER) (test code = 382) 101 meq/L 98-107 CO2 (BEAKER) (test code = 355) 25 meq/L 22-29 BLOOD UREA NITROGEN (BEAKER) (test code = 354) 38 mg/dL 7-21 H CREATININE (BEAKER) (test code = 358) 1.26 mg/dL 0.57-1.25 H Specimen slightl y hemolyzed GLUCOSE RANDOM (BEAKER) (test code = 652) 134 mg/dL 70-105 H CALCIUM (BEAKER) (test code = 697) 8.4 mg/dL 8.4-10.2 EGFR (BEAKER) (test code = 1092) 57 mL/min/1.73 sq m Interpretation of eG FR values Stage Description Result G1 Normal or high >=90 G2 Mildly decreased 60-89 G3a Mildly to moderately 45-59 G3b Moderately to severely 30-44 G4 Severly decreased 15-29 G5 Kidney failure <15Reported eGFR is based on the CKD-EPI 2020 equation that does not use a race coefficientEstimated GFR is not as accurate as Creatinine Clearance in predicting glomerular filtration rate. Estimated GFR is not applicable for dialysis patients Creping Machine Operator ID - ADMINCALCIUM, [id number] 03:47:17* Test Item Value Reference Range Interpretation Comme nts CALCIUM IONIZED (BEAKER) (te st code = 698) 1.12 mmol/L 1.12-1.27 PH, BLOOD (BEAKER) (test cod e = 1810) 7.46 OXYGEN SATURATION, [id number] 03:43:14* Test Item Value Reference Range Interpretation Comme nts O2 SATURATION (MEASURED) (BE SARAHI) (test code = 1455) 94.1 % CBC W/PLT COUNT & AUTO [id number] 03:23:38* Test Item Value Reference Range Interpretation Comme nts WHITE BLOOD CELL COUNT (BEAK ER) (test code = 775) 7.0 K/ L 3.5-10.5 RED BLOOD CELL COUNT (BEAKER ) (test code = 761) 2.70 M/ L 4.63-6.08 L HEMOGLOBIN (BEAKER) (test co de = 410) 8.3 GM/DL 13.7-17.5 L HEMATOCRIT (BEAKER) (test co de = 411) 24.9 % 40.1-51.0 L MEAN CORPUSCULAR VOLUME (AURA KER) (test code = 753) 92 fL 79-92 MEAN CORPUSCULAR HEMOGLOBIN (BEAKER) (test code = 751) 30.7 pg 25.7-32.2 MEAN CORPUSCULAR HEMOGLOBIN CONC (BEAKER) (test code = 752) 33.3 GM/DL 32.3-36.5 RED CELL DISTRIBUTION WIDTH (BEAKER) (test code = 412) 14.1 % 11.6-14.4 PLATELET COUNT (BEAKER) (sugey t code = 756) 121 K/CU MM 150-450 L MEAN PLATELET VOLUME (BEAKER ) (test code = 754) 10.0 fL 9.4-12.4 NUCLEATED RED BLOOD CELLS (BEAKER) (test code = 413) 0 /100 WBC 0-0 NEUTROPHILS RELATIVE PERCENT (BEAKER) (test code = 429) 77 % LYMPHOCYTES RELATIVE PERCENT (BEAKER) (test code = 430) 9 % MONOCYTES RELATIVE PERCENT (BEAKER) (test code = 431) 9 % EOSINOPHILS RELATIVE PERCENT (BEAKER) (test code = 432) 4 % BASOPHILS RELATIVE PERCENT (BEAKER) (test code = 437) 0 % NEUTROPHILS ABSOLUTE COUNT (BEAKER) (test code = 670) 5.36 K/ L 1.78-5.38 LYMPHOCYTES ABSOLUTE COUNT (BEAKER) (test code = 414) 0.64 K/ L 1.32-3.57 L MONOCYTES ABSOLUTE COUNT (BE SARAHI) (test code = 415) 0.63 K/ L 0.30-0.82 EOSINOPHILS ABSOLUTE COUNT (BEAKER) (test code = 416) 0.25 K/ L 0.04-0.54 BASOPHILS ABSOLUTE COUNT (BE SARAHI) (test code = 417) 0.03 K/ L 0.01-0.08 IMMATURE GRANULOCYTES-RELATI VE PERCENT (BEAKER) (test code = 2801) 0.60 % 0.00-1.00 BLOOD GAS, [id number] 23:43:56* Test Item Value Reference Range Interpretation Comme nts PH VENOUS (BEAKER) (test cod e = 701) 7.51 7.32-7.42 H PCO2 VENOUS (BEAKER) (test c ode = 755) 36 mm Hg 41-51 L PO2 VENOUS (BEAKER) (test co de = 702) 157 mm Hg 25-40 H O2 SATURATION VENOUS (BEAKER ) (test code = 703) 99.2 % 40.0-70.0 H HCO3 VENOUS (BEAKER) (test c ode = 705) 28 mmol/L 21-29 BASE EXCESS VENOUS (BEAKER) (test code = 704) 4.3 mmol/L -2.0-3.0 H PATIENT TEMPERATURE (BEAKER) (test code = 1818) 37.0 FIO2 (BEAKER) (test code = 1819) 40.0 POCT-GLUCOSE [id number] 20:47:01* Test Item Value Reference Range Interpretation Comme nts POC-GLUCOSE METER (BEAKER) (test code = 1538) 192 mg/dL 70-110 H : TESTED AT [facility] [address] [facility], [address]: Creping Machine Operator/Train Caller ID = [id number] for Mandy Turcios POCT-GLUCOSE [id number] 16:29:15* Test Item Value Reference Range Interpretation Comme nts POC-GLUCOSE METER (BEAKER) (test code = 1538) 170 mg/dL 70-110 H : TESTED AT [facility] [address] [facility], [address]: Creping Machine Operator/Train Caller ID = [id number] for Kaylee Osborne BASIC METABOLIC [id number] 15:43:11* Test Item Value Reference Range Interpretation Comme nts SODIUM (BEAKER) (test code = 381) 133 meq/L 136-145 L POTASSIUM (BEAKER) (test code = 379) 3.8 meq/L 3.5-5.1 CHLORIDE (BEAKER) (test code = 382) 99 meq/L 98-107 CO2 (BEAKER) (test code = 355) 25 meq/L 22-29 BLOOD UREA NITROGEN (BEAKER) (test code = 354) 42 mg/dL 7-21 H CREATININE (BEAKER) (test code = 358) 1.57 mg/dL 0.57-1.25 H GLUCOSE RANDOM (BEAKER) (test code = 652) 185 mg/dL 70-105 H CALCIUM (BEAKER) (test code = 697) 8.4 mg/dL 8.4-10.2 EGFR (BEAKER) (test code = 1092) 44 mL/min/1.73 sq m Interpretation of eG FR values Stage Description Result G1 Normal or high >=90 G2 Mildly decreased 60-89 G3a Mildly to moderately 45-59 G3b Moderately to severely 30-44 G4 Severly decreased 15-29 G5 Kidney failure <15Reported eGFR is based on the CKD-EPI 2020 equation that does not use a race coefficientEstimated GFR is not as accurate as Creatinine Clearance in predicting glomerular filtration rate. Estimated GFR is not applicable for dialysis patients Creping Machine Operator ID - ADMINLactic Acid, [id number] 15:37:53* Test Item Value Reference Range Interpretation Comme nts Lactate, Art (test code = 2874) 1 mmol/L 0.5-2.0 GABBI (test code = GABBI) Creping Machine Operator ID - ADMIN Lab Interpretation (test code = 76281-3) [facility] [id number] 15:37:53* Test Item Value Reference Range Interpretation Comme nts LACTATE BLOOD ARTERIAL (2) (BEAKER) (test code = 2874) 1.0 mmol/L 0.5-2.0 Creping Machine Operator ID - ADMINOXYGEN SATURATION, [id number] 15:32:50* Test Item Value Reference Range Interpretation Comme nts O2 SATURATION (MEASURED) (BE SARAHI) (test code = 1455) 91.2 % US renal [id number] 15:31:50EXAM: Renal UltrasoundINDICATION: Rule out obstruction cori COMPARISON: None TECHNIQUE: Transverse and longitudinal images of the kidneys and bladderwere obtained. FINDINGS: Right Kidney: Length: 9.9 x 6.7 x 6.3 cmAppearance: Normal echogenicity. Collecting system: No hydronephrosisStones: NoneCyst/Mass: None Left Kidney: Length: 11.1 x 4.2 x 3 point cmAppearance: Normal echogenicity. Collecting system: No hydronephrosisStones: NoneCyst/Mass: Simple appearing cysts noted. No follow-up required Bladder: Decompressed, limiting evaluation.[facility] US RENAL [id number] 15:31:50 [facility] NAVJOT DAS : 1940 Sex: MEXAM: Renal UltrasoundINDICATION: Rule out obstruction cori COMPARISON: None TECHNIQUE: Transverse and longitudinal images of the kidneys and bladderwere obtained. FINDINGS: Right Kidney: Length: 9.9 x 6.7 x 6.3 cmAppearance: Normal echogenicity. Collecting system: No hydronephrosisStones: NoneCyst/Mass: NoneLeft Kidney: Length: 11.1 x 4.2 x 3 point cmAppearance: Normal echogenicity. Collecting system: No hydronephrosisStones: NoneCyst/Mass: Simple appearing cysts noted. No follow-up requiredBladder: Decompressed, limiting evaluation.IMPRESSION:No hydronephrosis.Electronically Signed By: Castillo Diaz 07/30/2023 15:33 CDTWorkstation Name: [id number] (HEMOGRAM ONLY)2023-07-30 15:29:47* Test Item Value Reference Range Interpretation Comme nts WHITE BLOOD CELL COUNT (BEAK ER) (test code = 775) 6.5 K/ L 3.5-10.5 RED BLOOD CELL COUNT (BEAKER ) (test code = 761) 2.88 M/ L 4.63-6.08 L HEMOGLOBIN (BEAKER) (test co de = 410) 8.8 GM/DL 13.7-17.5 L HEMATOCRIT (BEAKER) (test co de = 411) 26.3 % 40.1-51.0 L MEAN CORPUSCULAR VOLUME (AURA KER) (test code = 753) 91 fL 79-92 MEAN CORPUSCULAR HEMOGLOBIN (BEAKER) (test code = 751) 30.6 pg 25.7-32.2 MEAN CORPUSCULAR HEMOGLOBIN CONC (BEAKER) (test code = 752) 33.5 GM/DL 32.3-36.5 RED CELL DISTRIBUTION WIDTH (BEAKER) (test code = 412) 14.2 % 11.6-14.4 PLATELET COUNT (BEAKER) (sugey t code = 756) 125 K/CU MM 150-450 L MEAN PLATELET VOLUME (BEAKER ) (test code = 754) 9.9 fL 9.4-12.4 NUCLEATED RED BLOOD CELLS (BEAKER) (test code = 413) 0 /100 WBC 0-0 [id number] 11:52:26* Test Item Value Reference Range Interpretation Comme nts HAPTOGLOBIN (BEAKER) (test c ode = 366) < mg/dL 14-258 L [employer] ID - ADMINPOCT-GLUCOSE [id number] 11:23:05* Test Item Value Reference Range Interpretation Comme nts POC-GLUCOSE METER (KYUNG) (test code = 1538) 198 mg/dL 70-110 H : TESTED AT [facility] [address] [facility], [address]: [employer] Machine Operator/Train Caller ID = [id number] for Kaylee Osborne HEMOGLOBIN [id number] 09:53:15* Test Item Value Reference Range Interpretation Comme nts HEMOGLOBIN A1C ELECTROPHORESIS (KYUNG) (test code = 3811) 7.0 % See_Comment H [Automated me ssage] The system which generated this result transmitted reference range: <=5.6%. The reference range was not used to interpret this result as normal/abnormal. "The A1c is measured using a [facility]-certified method. HbA1c value equal to or greater than 6.5% as the diagnosis cutoff for diabetes. An HbA1c value of 5.7- 6.4% indicates increased risk for diabetes (prediabetes)."Creping Machine Operator ID - ADM PLASMA FREE [id number] 09:33:12* Test Item Value Reference Range Interpretation Comme nts HEMOGLOBIN PLASMA (KYUNG) ( test code = 1054) 40.0 mg/dl <=30.0 H LACTATE DEHYDROGENASE (LDH)2023-07-30 09:31:30* Test Item Value Reference Range Interpretation Comme nts LACTATE DEHYDROGENASE (BEAKE R) (test code = 635) 420 U/L 125-220 H Creping Machine Operator ID - [id number] 09:14:33* Test Item Value Reference Range Interpretation Comme nts PARTIAL THROMBOPLASTIN TIME (TRACEAKER) (test code = 760) 34.0 seconds 22.5-36.0 XR CHEST 1 VIEW PORTABLE / [id number] 08:59:34 [facility] 1940 Sex: MChest, one view.HISTORY: impella COMPARISON: Radiograph from yesterdayIMPRESSION:The support lines and tubes are unchanged in position. Specifically, thepatella device overlies the descending thoracic aorta.The pulmonary edema has decreased with some residual interstitialpulmonary edema. The right pleural plaques are unchanged. No pleuraleffusion or pneumothorax. The cardiac silhouette is unchanged insize.No acute bone abnormality.Electronically Signed By: Kale Ferris07/30/2023 09:01 CDTWorkstation Name: [id number] 07:47:33* Test Item Value Reference Range Interpretation Comme nts POC-GLUCOSE METER (DLC) (test code = 1538) 177 mg/dL 70-110 H : TESTED AT [facility] [address] [place], [address]: Creping Machine Operator/Train Caller ID = [id number] for Kaylee Osborne PLASMA FREE [id number] 06:46:59* Test Item Value Reference Range Interpretation Comme nts HEMOGLOBIN PLASMA (BEAKER) ( test code = 1054) 30.0 mg/dl <=30.0 HIGH SENSITIVITY TROPONIN [id number] 03:39:24* Test Item Value Reference Range Interpretation Comme nts HIGH SENSITIVITY TROPONIN I (test code = 3639427) 45815 pg/ml <=35 HH Creping Machine Operator ID - ADMINThe AGENT PRODUCER STAT High Sensitivity Troponin-I results should be used in conjunction with other diagnostic information such as ECG, clinical observations and information, and patient symptoms to aid in the diagnosis of ND.Creping Machine Operator ID - [id number] 03:36:55* Test Item Value Reference Range Interpretation Comme nts HAPTOGLOBIN (BEAKER) (test c ode = 366) < mg/dL 14-258 L Creping Machine Operator ID - ADMINUrinalysis w/Cdptnuhdkwt4636-16-74 03:35:28* Test Item Value Reference Range Interpretation Comme nts Color, UA (test code = 5778-6) Brown Clarity, UA (test code = 5767-9) Cloudy Specific Sod, UA (test code = 5811-5) 1.042 1.001-1.035 H pH, UA (test code = 5803-2) 6 5.0-8.0 Protein, UA (test code = 11042-7) 300 mg/dL Negative A Glucose, UA (test code = 365) 30 mg/dL Negative A Ketones, UA (test code = 2514-8) Negative Negative Bilirubin, UA (test code = 37927-8) Negative Negative Blood, UA (test code = 44657-1) Large Negative A Nitrite, UA (test code = 5802-4) Negative Negative Leukocytes, UA (test code = 5799-2) Small Negative A Urobilinogen, UA (test code = 52695-4) 0.2 0.2-1.0 RBC, UA (test code = 09291-6) See_Comment [Automated message] The system which generated this result transmitted reference range: /HPF. The reference range was not used to interpret this result as normal/abnormal. WBC, UA (test code = 5821-4) See_Comment [Automated message] The system which generated this result transmitted reference range: /HPF. The reference range was not used to interpret this result as normal/abnormal. Mucus (test code = 8247-9) Rare Squam Epithel, UA (test code = 27872-7) 2 See_Comment [Automated message] The system which generated this result transmitted reference range: /HPF. The reference range was not used to interpret this result as normal/abnormal. Yeast (test code = 40167-0) Few Specimen Source (test code = 2795) Urine, Schreiber GABBI (test code = GABBI) Creping Machine Operator ID - tech Lab Interpretation (test code = 65094-2) [facility]normal [facility]/ [id number] 03:35:28* Test Item Value Reference Range Interpretation Comme nts COLOR (BEAKER) (test code = 470) Brown CLARITY (BEAKER) (test code = 469) Cloudy SPECIFIC GRAVITY UA (BEAKER) (test code = 468) 1.042 1.001-1.035 H PH UA (BEAKER) (test code = 467) 6.0 5.0-8.0 PROTEIN UA (BEAKER) (test co de = 464) 300 mg/dL Negative A GLUCOSE UA (BEAKER) (test co de = 365) 30 mg/dL Negative A KETONES UA (BEAKER) (test co de = 371) Negative Negative BILIRUBIN UA (BEAKER) (test code = 462) Negative Negative BLOOD UA (BEAKER) (test code = 461) Large Negative A NITRITE UA (BEAKER) (test co de = 465) Negative Negative LEUKOCYTE ESTERASE UA (BEAKE R) (test code = 466) Small Negative A UROBILINOGEN UA (BEAKER) (te st code = 463) 0.2 0.2-1.0 RBC UA (BEAKER) (test code = 519) > /HPF WBC UA (BEAKER) (test code = 520) > /HPF MUCUS (BEAKER) (test code = 1574) Rare SQUAMOUS EPITHELIAL (BEAKER) (test code = 516) 2 /HPF YEAST (BEAKER) (test code = 1585) Few SOURCE(BEAKER) (test code = 2791) Urine, Schreiber Creping Machine Operator ID - techBASIC METABOLIC [id number] 03:09:18* Test Item Value Reference Range Interpretation Comme nts SODIUM (BEAKER) (test code = 381) 132 meq/L 136-145 L POTASSIUM (BEAKER) (test code = 379) 3.7 meq/L 3.5-5.1 CHLORIDE (BEAKER) (test code = 382) 100 meq/L 98-107 CO2 (BEAKER) (test code = 355) 23 meq/L 22-29 BLOOD UREA NITROGEN (BEAKER) (test code = 354) 43 mg/dL 7-21 H CREATININE (BEAKER) (test code = 358) 1.70 mg/dL 0.57-1.25 H GLUCOSE RANDOM (BEAKER) (test code = 652) 184 mg/dL 70-105 H CALCIUM (BEAKER) (test code = 697) 8.2 mg/dL 8.4-10.2 L EGFR (BEAKER) (test code = 1092) 40 mL/min/1.73 sq m Interpretation of eG FR values Stage Description Result G1 Normal or high >=90 G2 Mildly decreased 60-89 G3a Mildly to moderately 45-59 G3b Moderately to severely 30-44 G4 Severly decreased 15-29 G5 Kidney failure <15Reported eGFR is based on the CKD-EPI 2020 equation that does not use a race coefficientEstimated GFR is not as accurate as Creatinine Clearance in predicting glomerular filtration rate. Estimated GFR is not applicable for dialysis patients Creping Machine Operator ID - [id number] 03:09:18* Test Item Value Reference Range Interpretation Comme nts MAGNESIUM (BEAKER) (test cod e = 627) 2.2 mg/dL 1.6-2.6 Creping Machine Operator ID - ADMINHEPATIC FUNCTION [id number] 03:09:18* Test Item Value Reference Range Interpretation Comme nts TOTAL PROTEIN (BEAKER) (test code = 770) 5.0 gm/dL 6.0-8.3 L ALBUMIN (BEAKER) (test code = 1145) 3.1 g/dL 3.5-5.0 L BILIRUBIN TOTAL (BEAKER) (te st code = 377) 0.7 mg/dL 0.2-1.2 BILIRUBIN DIRECT (BEAKER) (t est code = 706) 0.3 mg/dL 0.1-0.5 ALKALINE PHOSPHATASE (BEAKER ) (test code = 346) 49 U/L 40-150 AST (SGOT) (BEAKER) (test co de = 353) 64 U/L 5-34 H ALT (SGPT) (BEAKER) (test co de = 347) 22 U/L 6-55 Creping Machine Operator ID - ADMINLACTATE DEHYDROGENASE (LDH)2023-07-30 03:09:18* Test Item Value Reference Range Interpretation Comme nts LACTATE DEHYDROGENASE (BEAKE R) (test code = 635) 366 U/L 125-220 H Creping Machine Operator ID - [id number] 02:58:31* Test Item Value Reference Range Interpretation Comme nts PARTIAL THROMBOPLASTIN TIME (BEAKER) (test code = 760) 38.1 seconds 22.5-36.0 H OXYGEN SATURATION, [id number] 02:44:28* Test Item Value Reference Range Interpretation Comme nts O2 SATURATION (MEASURED) (BE SARAHI) (test code = 1455) 86.5 % LACTIC ACID, [id number] 02:43:12* Test Item Value Reference Range Interpretation Comme nts LACTATE BLOOD ARTERIAL (2) (BEAKER) (test code = 2874) 0.8 mmol/L 0.5-2.0 Creping Machine Operator ID - ADMINCALCIUM, [id number] 02:32:55* Test Item Value Reference Range Interpretation Comme nts CALCIUM IONIZED (BEAKER) (te st code = 698) 1.04 mmol/L 1.12-1.27 L PH, BLOOD (BEAKER) (test cod e = 1810) 7.46 CBC W/PLT COUNT & AUTO [id number] 02:32:10* Test Item Value Reference Range Interpretation Comme nts WHITE BLOOD CELL COUNT (BEAK ER) (test code = 775) 6.4 K/ L 3.5-10.5 RED BLOOD CELL COUNT (BEAKER ) (test code = 761) 2.90 M/ L 4.63-6.08 L HEMOGLOBIN (BEAKER) (test co de = 410) 9.0 GM/DL 13.7-17.5 L HEMATOCRIT (BEAKER) (test co de = 411) 26.2 % 40.1-51.0 L MEAN CORPUSCULAR VOLUME (AURA KER) (test code = 753) 90 fL 79-92 MEAN CORPUSCULAR HEMOGLOBIN (BEAKER) (test code = 751) 31.0 pg 25.7-32.2 MEAN CORPUSCULAR HEMOGLOBIN CONC (BEAKER) (test code = 752) 34.4 GM/DL 32.3-36.5 RED CELL DISTRIBUTION WIDTH (BEAKER) (test code = 412) 14.2 % 11.6-14.4 PLATELET COUNT (BEAKER) (sugey t code = 756) 146 K/CU MM 150-450 L MEAN PLATELET VOLUME (BEAKER ) (test code = 754) 9.8 fL 9.4-12.4 NUCLEATED RED BLOOD CELLS (BEAKER) (test code = 413) 0 /100 WBC 0-0 NEUTROPHILS RELATIVE PERCENT (BEAKER) (test code = 429) 73 % LYMPHOCYTES RELATIVE PERCENT (BEAKER) (test code = 430) 12 % MONOCYTES RELATIVE PERCENT (BEAKER) (test code = 431) 13 % EOSINOPHILS RELATIVE PERCENT (BEAKER) (test code = 432) 1 % BASOPHILS RELATIVE PERCENT (BEAKER) (test code = 437) 1 % NEUTROPHILS ABSOLUTE COUNT (BEAKER) (test code = 670) 4.69 K/ L 1.78-5.38 LYMPHOCYTES ABSOLUTE COUNT (BEAKER) (test code = 414) 0.79 K/ L 1.32-3.57 L MONOCYTES ABSOLUTE COUNT (BE SARAHI) (test code = 415) 0.81 K/ L 0.30-0.82 EOSINOPHILS ABSOLUTE COUNT (BEAKER) (test code = 416) 0.07 K/ L 0.04-0.54 BASOPHILS ABSOLUTE COUNT (BE SARAHI) (test code = 417) 0.03 K/ L 0.01-0.08 IMMATURE GRANULOCYTES-RELATI VE PERCENT (BEAKER) (test code = 2801) 0.20 % 0.00-1.00 Blood gas, [id number] 02:29:37* Test Item Value Reference Range Interpretation Comme nts pH, Arterial (test code = 2744-1) 7.45 7.35-7.45 pCO2, Arterial (test code = 2019-8) 35 35-45 pO2, Arterial (test code = 2703-7) 88 80-90 O2 Sat, Arterial (test code = 2708-6) 97.1 % 96.0-97.0 H HCO3, Arterial (test code = 1960-4) 24 mmol/L 21-29 Base Excess, Arterial (test code = 1925-7) -0.1 mmol/L -2.0-3.0 Patient Temperature (test co de = 8310-5) 37.2 FIO2 (test code = 1819) 28.0 Lab Interpretation (test cod e = 44800-4) Abnormal [facility], [id number] 02:29:37* Test Item Value Reference Range Interpretation Comme nts PH ARTERIAL (BEAKER) (test c ode = 383) 7.45 7.35-7.45 PCO2 ARTERIAL (BEAKER) (test code = 384) 35 mm Hg 35-45 PO2 ARTERIAL (BEAKER) (test code = 385) 88 mm Hg 80-90 O2 SATURATION ARTERIAL (BEAK ER) (test code = 386) 97.1 % 96.0-97.0 H HCO3 ARTERIAL (BEAKER) (test code = 388) 24 mmol/L 21-29 BASE EXCESS ARTERIAL (BEAKER ) (test code = 387) -0.1 mmol/L -2.0-3.0 PATIENT TEMPERATURE (BEAKER) (test code = 1818) 37.2 FIO2 (BEAKER) (test code = 1819) 28.0 HIGH SENSITIVITY TROPONIN [id number] 22:45:35* Test Item Value Reference Range Interpretation Comme nts HIGH SENSITIVITY TROPONIN I (test code = 6781231) 25549 pg/ml <=35 HH Creping Machine Operator ID - ADMINThe AGENT PRODUCER STAT High Sensitivity Troponin-I results should be used in conjunction with other diagnostic information such as ECG, clinical observations and information, and patient symptoms to aid in the diagnosis of ND.Creping Machine Operator ID - [id number] 22:24:04* Test Item Value Reference Range Interpretation Comme nts HAPTOGLOBIN (BEAKER) (test c ode = 366) < mg/dL 14-258 L Creping Machine Operator ID - ADMINLACTATE DEHYDROGENASE (LDH)2023-07-29 22:21:17* Test Item Value Reference Range Interpretation Comme nts LACTATE DEHYDROGENASE (BEAKE R) (test code = 635) 380 U/L 125-220 H Creping Machine Operator ID - [id number] 22:15:37* Test Item Value Reference Range Interpretation Comme nts PARTIAL THROMBOPLASTIN TIME (BEAKER) (test code = 760) 30.9 seconds 22.5-36.0 PLASMA FREE [id number] 22:12:21* Test Item Value Reference Range Interpretation Comme nts HEMOGLOBIN PLASMA (BEAKER) ( test code = 1054) 40.0 mg/dl <=30.0 H LACTIC ACID, [id number] 22:11:36* Test Item Value Reference Range Interpretation Comme nts LACTATE BLOOD ARTERIAL (2) (BEAKER) (test code = 2874) 1.4 mmol/L 0.5-2.0 Creping Machine Operator ID - ADMINPOCT-GLUCOSE [id number] 18:12:58* Test Item Value Reference Range Interpretation Comme nts POC-GLUCOSE METER (BEAKER) (test code = 1538) 309 mg/dL 70-110 H : TESTED AT [facility] [address] [facility], [address]: Creping Machine Operator/Train Caller ID = [id number] for Khadar Lashawn [id number] 18:08:00* Test Item Value Reference Range Interpretation Comme nts MAGNESIUM (BEAKER) (test cod e = 627) 1.6 mg/dL 1.6-2.6 Creping Machine Operator ID - [id number] 18:04:22* Test Item Value Reference Range Interpretation Comme nts PARTIAL THROMBOPLASTIN TIME (BEAKER) (test code = 760) 32.0 seconds 22.5-36.0 XR CHEST 1 VIEW PORTABLE / [id number] 18:04:09 [facility] : 1940 Sex: MEXAM: XR CHEST 1 VIEWDATE: 07/29/2023 5:44 PM INDICATION: s/p RIJ CVCCOMPARISON: Chest x-ray 07/29/2023 [id number] hoursTECHNIQUE: AP chest.FINDINGS/IMPRESSION:Lines, tubes and hardware: Right IJ central venous catheter with tipoverlying the cavoatrial junction. The inferior approach Impella devicehas been retracted with the tip overlying the aortic arch apex.Lungs and pleura: No significant interval change with persistentbilateral pleural-parenchymal opacities. No pneumothorax.Heart and mediastinum: Theheart size is normal. The mediastinalcontours are normal. Bones and soft tissues: No acute abnormality.Electronically Signed By: Markus Moss07/29/2023 18:06 CDTWorkstation Name: [id number] ACID, ARTERIAL 2023-07-29 18:03:41* Test Item Value Reference Range Interpretation Comme nts LACTATE BLOOD ARTERIAL (2) (BEAKER) (test code = 2874) 2.3 mmol/L 0.5-2.0 H Specimen mode rately hemolyzed Creping Machine Operator ID - ADMINPROTHROMBIN TIME/[id number] 18:03:21* Test Item Value Reference Range Interpretation Comme nts PROTIME (BEAKER) (test code = 759) 14.1 seconds 11.9-14.2 INR (BEAKER) (test code = 370) 1.09 <=5.90 RECOMMENDED COUMADIN/WARFARIN INR THERAPY RANGESSTANDARD DOSE: 2.0 - 3.0 Includes: PROPHYLAXIS for venous thrombosis, systemic embolization; TREATMENT for venous thrombosis and/or pulmonary embolus.HIGH RISK: Target INR is 2.5-3.5 for patients with mechanical heart valves.OXYGEN SATURATION, [id number] 17:59:40* Test Item Value Reference Range Interpretation Comme nts O2 SATURATION (MEASURED) (BE SARAHI) (test code = 1455) 76.2 % CBC (HEMOGRAM ONLY)2023-07-29 17:52:59* Test Item Value Reference Range Interpretation Comme nts WHITE BLOOD CELL COUNT (BEAK ER) (test code = 775) 10.5 K/ L 3.5-10.5 RED BLOOD CELL COUNT (BEAKER ) (test code = 761) 3.37 M/ L 4.63-6.08 L HEMOGLOBIN (BEAKER) (test co de = 410) 10.2 GM/DL 13.7-17.5 L HEMATOCRIT (BEAKER) (test co de = 411) 29.9 % 40.1-51.0 L MEAN CORPUSCULAR VOLUME (AURA KER) (test code = 753) 89 fL 79-92 MEAN CORPUSCULAR HEMOGLOBIN (BEAKER) (test code = 751) 30.3 pg 25.7-32.2 MEAN CORPUSCULAR HEMOGLOBIN CONC (BEAKER) (test code = 752) 34.1 GM/DL 32.3-36.5 RED CELL DISTRIBUTION WIDTH (BEAKER) (test code = 412) 14.0 % 11.6-14.4 PLATELET COUNT (BEAKER) (sugey t code = 756) 204 K/CU MM 150-450 MEAN PLATELET VOLUME (BEAKER ) (test code = 754) 9.9 fL 9.4-12.4 NUCLEATED RED BLOOD CELLS (BEAKER) (test code = 413) 0 /100 WBC 0-0 BLOOD GAS, [id number] 16:49:30* Test Item Value Reference Range Interpretation Comme nts PH ARTERIAL (BEAKER) (test c ode = 383) 7.42 7.35-7.45 PCO2 ARTERIAL (BEAKER) (test code = 384) 33 mm Hg 35-45 L PO2 ARTERIAL (BEAKER) (test code = 385) 184 mm Hg 80-90 H O2 SATURATION ARTERIAL (BEAK ER) (test code = 386) 99.3 % 96.0-97.0 H HCO3 ARTERIAL (BEAKER) (test code = 388) 21 mmol/L 21-29 BASE EXCESS ARTERIAL (BEAKER ) (test code = 387) -3.1 mmol/L -2.0-3.0 L PATIENT TEMPERATURE (BEAKER) (test code = 1818) 37.0 FIO2 (BEAKER) (test code = 1819) 28.0 HIGH SENSITIVITY TROPONIN [id number] 16:43:10* Test Item Value Reference Range Interpretation Comme nts HIGH SENSITIVITY TROPONIN I (test code = 8106620) 97612 pg/ml <=35 HH Creping Machine Operator ID - ADMINThe AGENT PRODUCER STAT High Sensitivity Troponin-I results should be used in conjunction with other diagnostic information such as ECG, clinical observations and information, and patient symptoms to aid in the diagnosis of ND.Creping Machine Operator ID - ADMINURINALYSIS W/ SHWWKUVSRZY2396-87-34 16:37:50* Test Item Value Reference Range Interpretation Comme nts COLOR (BEAKER) (test code = 470) Red CLARITY (BEAKER) (test code = 469) Cloudy SPECIFIC GRAVITY UA (BEAKER) (test code = 468) > 1.001-1.035 H PH UA (BEAKER) (test code = 467) 5.5 5.0-8.0 PROTEIN UA (BEAKER) (test code = 464) 100 mg/dL Negative A GLUCOSE UA (BEAKER) (test code = 365) 200 mg/dL Negative A KETONES UA (BEAKER) (test code = 371) Negative Negative BILIRUBIN UA (BEAKER) (test code = 462) Negative Negative BLOOD UA (BEAKER) (test code = 461) Large Negative A NITRITE UA (BEAKER) (test code = 465) Negative Negative LEUKOCYTE ESTERASE UA (BEAKER) (test code = 466) Trace Negative A UROBILINOGEN UA (BEAKER) (test code = 463) 0.2 0.2-1.0 RBC UA (BEAKER) (test code = 519) > /HPF This is a correc aaron result. Previous result was 0 /HPF on 07/29/2023 at 1632 CDT WBC UA (BEAKER) (test code = 520) > /HPF This is a correc aaron result. Previous result was 0 /HPF on 07/29/2023 at 1632 CDT YEAST (BEAKER) (test code = 1585) Many SOURCE(BEAKER) (test code = 2795) Urine, Schreiber Creping Machine Operator ID - techOperator ID - mfxfSBTNVXZWWGS5035-93-95 16:23:32* Test Item Value Reference Range Interpretation Comme nts HAPTOGLOBIN (BEAKER) (test c ode = 366) < mg/dL 14-258 L Creping Machine Operator ID - ADMINBASIC METABOLIC [id number] 16:18:03* Test Item Value Reference Range Interpretation Comme nts SODIUM (BEAKER) (test code = 381) 132 meq/L 136-145 L POTASSIUM (BEAKER) (test code = 379) 4.5 meq/L 3.5-5.1 CHLORIDE (BEAKER) (test code = 382) 102 meq/L 98-107 CO2 (BEAKER) (test code = 355) 19 meq/L 22-29 L BLOOD UREA NITROGEN (BEAKER) (test code = 354) 38 mg/dL 7-21 H CREATININE (BEAKER) (test code = 358) 1.52 mg/dL 0.57-1.25 H GLUCOSE RANDOM (BEAKER) (test code = 652) 330 mg/dL 70-105 H CALCIUM (BEAKER) (test code = 697) 8.3 mg/dL 8.4-10.2 L EGFR (BEAKER) (test code = 1092) 45 mL/min/1.73 sq m Interpretation of eG FR values Stage Description Result G1 Normal or high >=90 G2 Mildly decreased 60-89 G3a Mildly to moderately 45-59 G3b Moderately to severely 30-44 G4 Severly decreased 15-29 G5 Kidney failure <15Reported eGFR is based on the CKD-EPI 2020 equation that does not use a race coefficientEstimated GFR is not as accurate as Creatinine Clearance in predicting glomerular filtration rate. Estimated GFR is not applicable for dialysis patients Creping Machine Operator ID - ADMINLACTATE DEHYDROGENASE (LDH)2023-07-29 16:18:03* Test Item Value Reference Range Interpretation Comme nts LACTATE DEHYDROGENASE (BEAKE R) (test code = 635) 357 U/L 125-220 H Creping Machine Operator ID - ADMINPLASMA FREE [id number] 16:11:01* Test Item Value Reference Range Interpretation Comme nts HEMOGLOBIN PLASMA (BEAKER) ( test code = 1054) < mg/dl <=30.0 ECHO W CONTRAST & [id number] 15:20:10Transthoracic Echocardiography Report (TTE) Demographics Patient Name AMAURY Date of Study 07/29/2023 NAVJOT Gender Male Visit Number [id number] Race Unknown Room Number 6101 Number Date of 1940 Referring Physician Josefa Mancia Age 82 year(s) Care Trainer Katya Benites [facility] Elevator Technician Domo An Interpreting Sudhakar Matos Physician MDProcedure Type of Study TTE procedure:2DECHO W DOPPLER(CW/PW/COLOR) (STAT)Indications:Acute Chest Pain/ Susp ected CAD.Clinical HistoryHGB 10.2HCT 30.6 %DMHTNBYPASS AORTO CORONARY 03/12/2015NGIOGRAM/CORONARY/ LEFT CATH 07/28/2023IMPELLA CPContrast Medium: Definity.Height: 69 inches Weight: 80.29 kg (177 lbs) BSA: 1.96 m^2 BMI: 26.14 kg/m^2HR: 110 bpm BP: 123/83 mmHg Summary The left ventricle chamber size (by vol index) is normal (male - LVED vol - 34-74ml/m2). Mild concentric LV hypertrophy. All of the LV segments are dcpvqftm-lk-qagawa hypokinetic . Estimated LVEF by qualitative assessment is moderately reduced (30-34%) . Estimation of LV systolic function may be unreliable in the setting of mecha nical circulatory support. The Impella LVAD inflow zone position is suboptimal, too far into the LV. Estimated peak systolic PA pressure is 35-40 mmHg (borderline criteria for pulmonary hypertension) . The estimated RA pressure by IVC dynamics 16-20mmHg . Signature Findings Technical Quality: Technically adequate exam. Left Ventricle The left ventricle chamber size (by vol index) is normal (male - LVED vol - 34-74ml/m2). Mild concentric LV hypertrophy. All of the LV segments are gxikqark-ax-jcaqay hypokinetic . Estimated LVEF by qualitative assessment is moderately reduced (30-34%) . Estimation of LV systolic function may be unreliable in the setting of mechanical circulatory support. LV endocardium is adequately visualized with IV ultrasound enhancing agent. LeftAtrium LA size is moderately enlarged . Right Ventricle RV chamber size appears mildly enlarged by limited views . Global RV systolic function is depressed . Right Atrium Right atrium dilated. AorticValve Moderate AoV cusp thickening. Prko-bn-lucmhgdr AoV cusp calcification. Mitral Valve Mild MV leaflet thickening. Mild mitral annular calcification. Severe mitral regurgitation. Tricuspid Valve Mild tricuspid regurgitation. Estimated peak systolic PA pressure is 35-40 mmHg (borderline criteria for pulmonary hypertension) . Pulmonic Valve Normal PV structure and function by limited views and Doppler. Aorta Aortic root size (SInus of Valsalva diameter) is normal . Pericardium No evidence of pericardial effusion. IVC/SVC/PA/PV/Pleural The estimated RA pressure by IVC dynamics 16-20mmHg . [facility] Circ Support An Impella CP percutaneous LVAD is present.The Impella LVAD inflow zone position is a pproximately 5.3 cm from aortic annulus . The Impella LVAD inflow zone position is suboptimal, too far into the LV .Chambers/Structures Left Atrium LA Volume: 86.13 ml LA Area: 25.8 cm^2 LA Vol. Index: 44 ml/m^2 Left Ventricle LVIDd: 4.4 cm LVEDV:87.9 ml LV Septum Diastolic: 1.34 cm LV Septum Systolic: 1.37 cm LV PW Diastolic: 1.14 cm LV PW Systolic: 1.25 cm LVEDV Saxena's:96.4 ml LVEDVI: 49 ml /m^2 LVESV Saxena's:63.23 ml LVESVI: 32 ml/m^2 LVEF Saxena's: 34.4 % LVOT Diameter: 2.15 cm RightVentricle RVOT VTI: 11.73 cmDoppler/Quantitative Measurements LVOT Peak Velocity: 0.56 m/s Peak Gradient: 1.26 mmHg Mean Velocity: 0.35 m/s Mean Gradient: 0.6 mmHg LVOT Diameter: 2.15 cm LVOT VTI: 7.6 cm LVOT Area: 3.63 cm^2 LVOT SV:27.58 ml LVOT CO: 3.03 l/min LVOT CI: 1.55 l/min/m^2 Tricuspid Valve TR Velocity: 2.2 m/s TR Gradient: 19.3 mmHgSan [facility] HospitalCreatinine, random [id number] 13:34:03* Test Item Value Reference Range Interpretation Comme nts Creatinine, Ur (test code = 2161-8) 28.2 mg/dL GABBI (test code = GABBI) Reference Range: No NormalsOperator ID - ADMIN [facility]odium, random [id number] 13:34:03* Test Item Value Reference Range Interpretation Comme nts Sodium Urine (test code = 2955-3) 82 meq/L GABBI (test code = GABBI) Reference Range: No NormalsOperator ID - ADMIN [facility] HospitalUrea Nitrogen, random [id number] 13:34:03* Test Item Value Reference Range Interpretation Comme nts Urea Nitrogen, Ur (test code = 3095-7) 360 mg/dL GABBI (test code = GABBI) Reference Range: No NormalsOperator ID - ADMIN [facility] HospitalCREATININE, RANDOM [id number] 13:34:03* Test Item Value Reference Range Interpretation Comme nts CREATININE URINE (BEAKER) (t est code = 375) 28.2 mg/dL Reference Range: No NormalsOperator ID - ADMINSODIUM, RANDOM [id number] 13:34:03* Test Item Value Reference Range Interpretation Comme nts SODIUM URINE (BEAKER) (test code = 243) 82 meq/L Reference Range: No NormalsOperator ID - ADMINUREA NITROGEN, RANDOM URINE 2023-07-29 13:34:03* Test Item Value Reference Range Interpretation Comme nts UREA NITROGEN URINE (BEAKER) (test code = 538) 360 mg/dL Reference Range: No NormalsOperator ID - [id number] 12:33:16* Test Item Value Reference Range Interpretation Comme nts PARTIAL THROMBOPLASTIN TIME (BEAKER) (test code = 760) 45.4 seconds 22.5-36.0 H POCT-GLUCOSE [id number] 12:26:49* Test Item Value Reference Range Interpretation Comme nts POC-GLUCOSE METER (BEAKER) (test code = 1538) 344 mg/dL 70-110 H : TESTED AT [facility] [address] [facility], [address]: Creping Machine Operator/Train Caller ID = [id number] for Lashawn Rubalcava HEMOGLOBIN [id number] 12:18:47* Test Item Value Reference Range Interpretation Comme nts HEMOGLOBIN A1C ELECTROPHORESIS (BEAKER) (test code = 3811) 6.8 % See_Comment H [Automated me ssage] The system which generated this result transmitted reference range: <=5.6%. The reference range was not used to interpret this result as normal/abnormal. "The A1c is measured using a [facility]-certified method. HbA1c value equal to or greater than 6.5% as the diagnosis cutoff for diabetes. An HbA1c value of 5.7- 6.4% indicates increased risk for diabetes (prediabetes)."Creping Machine Operator ID - ADM PLASMA FREE [id number] 11:38:50* Test Item Value Reference Range Interpretation Comme nts HEMOGLOBIN PLASMA (BEAKER) ( test code = 1054) 40.0 mg/dl <=30.0 H LACTATE DEHYDROGENASE (LDH)2023-07-29 11:07:29* Test Item Value Reference Range Interpretation Comme nts LACTATE DEHYDROGENASE (BEAKE R) (test code = 635) 354 U/L 125-220 H Creping Machine Operator ID - ADMINOperator ID - [id number] 09:59:02* Test Item Value Reference Range Interpretation Comme nts HAPTOGLOBIN (BEAKER) (test c ode = 366) 63 mg/dL 14-258 Creping Machine Operator ID - ADMINXR CHEST 1 VIEW PORTABLE / [id number] 09:34:27 [facility] 1940 Sex: MEXAM: XR CHEST 1 VIEWDATE: 07/29/2023 7:15 AM INDICATION: hypoxiaCOMPARISON: Chest x-ray 03/16/2015TECHNIQUE: AP chest.FINDINGS:Lines, tubes and hardware: Intact median sternotomy wires. Inferiorapproach Impella device.Lungs and pleura: Patchy bilateral interstitial opacities. Nopneumothorax. The costophrenic sulci are sharp without effusion.Heart and mediastinum: The heart size is enlarged but unchanged. Themediastinal contours are normal. Bones and soft tissues: No acute abnormality.IMPRESSION:1. Patchy bilateral interstitial opacities may represent edema and/ormultifocal infection.2. Stable cardiomegaly3. Inferior approach Impella deviceElectronically Signed By: Markus Moss07/29/2023 09:36 CDTWorkstation Name: [id number] without [id number] 09:22:23 * Test Item Value Reference Range Interpretation Comme nts Color, UA (test code = 5778-6) Brown Clarity, UA (test code = 5767-9) Cloudy Specific Sod, UA (test code = 5811-5) 1.047 1.001-1.035 H pH, UA (test code = 5803-2) 6 5.0-8.0 Protein, UA (test code = 06284-6) 100 mg/dL Negative A Glucose, UA (test code = 365) >1000 mg/dL Negative A Ketones, UA (test code = 2514-8) Negative Negative Bilirubin, UA (test code = 52230-8) Negative Negative Blood, UA (test code = 66771-3) Large Negative A Nitrite, UA (test code = 5802-4) Negative Negative Leukocytes, UA (test code = 5799-2) Small Negative A Urobilinogen, UA (test code = 69989-6) 0.2 0.2-1.0 Specimen Source (test code = 2795) GABBI (test code = GABBI) Creping Machine Operator ID - tech Lab Interpretation (test code = 41593-2) Abnormal [facility] [id number] 09:22:23* Test Item Value Reference Range Interpretation Comme nts COLOR (BEAKER) (test code = 470) Brown CLARITY (BEAKER) (test code = 469) Cloudy SPECIFIC GRAVITY UA (BEAKER) (test code = 468) 1.047 1.001-1.035 H PH UA (BEAKER) (test code = 467) 6.0 5.0-8.0 PROTEIN UA (BEAKER) (test co de = 464) 100 mg/dL Negative A GLUCOSE UA (BEAKER) (test co de = 365) >1000 mg/dL Negative A KETONES UA (BEAKER) (test co de = 371) Negative Negative BILIRUBIN UA (BEAKER) (test code = 462) Negative Negative BLOOD UA (BEAKER) (test code = 461) Large Negative A NITRITE UA (BEAKER) (test co de = 465) Negative Negative LEUKOCYTE ESTERASE UA (BEAKE R) (test code = 466) Small Negative A UROBILINOGEN UA (BEAKER) (te st code = 463) 0.2 0.2-1.0 SOURCE(BEAKER) (test code = 2795) Creping Machine Operator ID - techBASIC METABOLIC [id number] 09:16:17* Test Item Value Reference Range Interpretation Comme nts SODIUM (BEAKER) (test code = 381) 135 meq/L 136-145 L POTASSIUM (BEAKER) (test code = 379) 4.7 meq/L 3.5-5.1 CHLORIDE (BEAKER) (test code = 382) 103 meq/L 98-107 CO2 (BEAKER) (test code = 355) 20 meq/L 22-29 L BLOOD UREA NITROGEN (BEAKER) (test code = 354) 31 mg/dL 7-21 H CREATININE (BEAKER) (test code = 358) 1.31 mg/dL 0.57-1.25 H GLUCOSE RANDOM (BEAKER) (test code = 652) 375 mg/dL 70-105 H CALCIUM (BEAKER) (test code = 697) 8.6 mg/dL 8.4-10.2 EGFR (BEAKER) (test code = 1092) 54 mL/min/1.73 sq m Interpretation of eG FR values Stage Description Result G1 Normal or high >=90 G2 Mildly decreased 60-89 G3a Mildly to moderately 45-59 G3b Moderately to severely 30-44 G4 Severly decreased 15-29 G5 Kidney failure <15Reported eGFR is based on the CKD-EPI 2020 equation that does not use a race coefficientEstimated GFR is not as accurate as Creatinine Clearance in predicting glomerular filtration rate. Estimated GFR is not applicable for dialysis patients Creping Machine Operator ID - ADMINHIGH SENSITIVITY TROPONIN [id number] 08:21:51* Test Item Value Reference Range Interpretation Comme [facility] HIGH SENSITIVITY TROPONIN I (test code = 4167060) 81453 pg/ml <=35 HH Creping Machine Operator ID - ADMINThe AGENT PRODUCER STAT High Sensitivity Troponin-I results should be used in conjunction with other diagnostic information such as ECG, clinical observations and information, and patient symptoms to aid in the diagnosis of ND.Creping Machine Operator ID - [id number] 07:25:21* Test Item Value Reference Range Interpretation Comme nts PARTIAL THROMBOPLASTIN TIME (BEAKER) (test code = 760) > seconds 22.5-36.0 PLASMA FREE [id number] 06:49:33* Test Item Value Reference Range Interpretation Comme nts HEMOGLOBIN PLASMA (BEAKER) ( test code = 1054) 30.0 mg/dl <=30.0 POCT-GLUCOSE [id number] 06:23:16* Test Item Value Reference Range Interpretation Comme nts POC-GLUCOSE METER (BEAKER) (test code = 1538) 349 mg/dL 70-110 H : TESTED AT [facility] [address] [place], [address]: Creping Machine Operator/Train Caller ID = [id number] for Sachin Conde LACTATE DEHYDROGENASE (LDH)2023-07-29 06:07:35* Test Item Value Reference Range Interpretation Comme nts LACTATE DEHYDROGENASE (BEAKE R) (test code = 635) 290 U/L 125-220 H Creping Machine Operator ID - ADMINPT/[id number] 06:00:39* Test Item Value Reference Range Interpretation Comme nts PROTIME (BEAKER) (test code = 759) 16.4 seconds 11.9-14.2 H INR (BEAKER) (test code = 370) 1.33 <=5.90 PARTIAL THROMBOPLASTIN TIME (BEAKER) (test code = 760) > seconds 22.5-36.0 HH RECOMMENDED COUMADIN/WARFARIN INR THERAPY RANGESSTANDARD DOSE: 2.0 - 3.0 Includes: PROPHYLAXIS for venous thrombosis, systemic embolization; TREATMENT for venous thrombosis and/or pulmonary embolus.HIGH RISK: Target INR is 2.5-3.5 for patients with mechanical heart valves.[id number] 05:50:23* Test Item Value Reference Range Interpretation Comme nts HAPTOGLOBIN (BEAKER) (test c ode = 366) 112 mg/dL 14-258 Creping Machine Operator ID - ADMINLACTATE DEHYDROGENASE (LDH)2023-07-29 05:49:46* Test Item Value Reference Range Interpretation Comme nts LACTATE DEHYDROGENASE (BEAKE R) (test code = 635) 216 U/L 125-220 Creping Machine Operator ID - ADMINPROTHROMBIN TIME/[id number] 05:42:23* Test Item Value Reference Range Interpretation Comme nts PROTIME (BEAKER) (test code = 759) 16.4 seconds 11.9-14.2 H INR (BEAKER) (test code = 370) 1.33 <=5.90 RECOMMENDED COUMADIN/WARFARIN INR THERAPY RANGESSTANDARD DOSE: 2.0 - 3.0 Includes: PROPHYLAXIS for venous thrombosis, systemic embolization; TREATMENT for venous thrombosis and/or pulmonary embolus.HIGH RISK: Target INR is 2.5-3.5 for patients with mechanical heart valves.CBC W/PLT COUNT & AUTO DIFFERENTIAL 2023-07-29 05:40:42* Test Item Value Reference Range Interpretation Comme nts WHITE BLOOD CELL COUNT (BEAK ER) (test code = 775) 9.1 K/ L 3.5-10.5 RED BLOOD CELL COUNT (BEAKER ) (test code = 761) 3.38 M/ L 4.63-6.08 L HEMOGLOBIN (BEAKER) (test co de = 410) 10.2 GM/DL 13.7-17.5 L HEMATOCRIT (BEAKER) (test co de = 411) 30.6 % 40.1-51.0 L MEAN CORPUSCULAR VOLUME (AURA KER) (test code = 753) 91 fL 79-92 MEAN CORPUSCULAR HEMOGLOBIN (BEAKER) (test code = 751) 30.2 pg 25.7-32.2 MEAN CORPUSCULAR HEMOGLOBIN CONC (BEAKER) (test code = 752) 33.3 GM/DL 32.3-36.5 RED CELL DISTRIBUTION WIDTH (BEAKER) (test code = 412) 13.9 % 11.6-14.4 PLATELET COUNT (BEAKER) (sugey t code = 756) 173 K/CU MM 150-450 MEAN PLATELET VOLUME (BEAKER ) (test code = 754) 9.8 fL 9.4-12.4 NUCLEATED RED BLOOD CELLS (BEAKER) (test code = 413) 0 /100 WBC 0-0 NEUTROPHILS RELATIVE PERCENT (BEAKER) (test code = 429) 89 % LYMPHOCYTES RELATIVE PERCENT (BEAKER) (test code = 430) 6 % MONOCYTES RELATIVE PERCENT (BEAKER) (test code = 431) 5 % EOSINOPHILS RELATIVE PERCENT (BEAKER) (test code = 432) 0 % BASOPHILS RELATIVE PERCENT (BEAKER) (test code = 437) 0 % NEUTROPHILS ABSOLUTE COUNT (BEAKER) (test code = 670) 8.05 K/ L 1.78-5.38 H LYMPHOCYTES ABSOLUTE COUNT (BEAKER) (test code = 414) 0.51 K/ L 1.32-3.57 L MONOCYTES ABSOLUTE COUNT (BE SARAHI) (test code = 415) 0.42 K/ L 0.30-0.82 EOSINOPHILS ABSOLUTE COUNT (BEAKER) (test code = 416) 0.02 K/ L 0.04-0.54 L BASOPHILS ABSOLUTE COUNT (BE SARAHI) (test code = 417) 0.02 K/ L 0.01-0.08 IMMATURE GRANULOCYTES-RELATI VE PERCENT (BEAKER) (test code = 2801) 0.40 % 0.00-1.00 URINALYSIS W/ [id number] 03:58:48* Test Item Value Reference Range Interpretation Comme nts COLOR (BEAKER) (test code = 470) Light Yellow CLARITY (BEAKER) (test code = 469) Clear SPECIFIC GRAVITY UA (BEAKER) (test code = 468) 1.019 1.001-1.035 PH UA (BEAKER) (test code = 467) 6.0 5.0-8.0 PROTEIN UA (BEAKER) (test co de = 464) 70 mg/dL Negative A GLUCOSE UA (BEAKER) (test co de = 365) >1000 mg/dL Negative A KETONES UA (BEAKER) (test co de = 371) Negative Negative BILIRUBIN UA (BEAKER) (test code = 462) Negative Negative BLOOD UA (BEAKER) (test code = 461) Negative Negative NITRITE UA (BEAKER) (test co de = 465) Negative Negative LEUKOCYTE ESTERASE UA (BEAKE R) (test code = 466) Negative Negative UROBILINOGEN UA (BEAKER) (te st code = 463) 0.2 0.2-1.0 RBC UA (BEAKER) (test code = 519) 2 /HPF WBC UA (BEAKER) (test code = 520) 1 /HPF SOURCE(BEAKER) (test code = 2795) Urine, Schreiber Creping Machine Operator ID - techHIGH SENSITIVITY TROPONIN [id number] 03:13:59* Test Item Value Reference Range Interpretation Comme nts HIGH SENSITIVITY TROPONIN I (test code = 0891559) 2027 pg/ml <=35 HH Creping Machine Operator ID - ADMINThe AGENT PRODUCER STAT High Sensitivity Troponin-I results should be used in conjunction with other diagnostic information such as ECG, clinical observations and information, and patient symptoms to aid in the diagnosis of ND.CBC W/PLT COUNT & AUTO [id number] 02:53:26* Test Item Value Reference Range Interpretation Comme nts WHITE BLOOD CELL COUNT (BEAK ER) (test code = 775) 11.8 K/ L 3.5-10.5 H RED BLOOD CELL COUNT (BEAKER ) (test code = 761) 3.37 M/ L 4.63-6.08 L HEMOGLOBIN (BEAKER) (test co de = 410) 10.4 GM/DL 13.7-17.5 L HEMATOCRIT (BEAKER) (test co de = 411) 31.3 % 40.1-51.0 L MEAN CORPUSCULAR VOLUME (AURA KER) (test code = 753) 93 fL 79-92 H MEAN CORPUSCULAR HEMOGLOBIN (BEAKER) (test code = 751) 30.9 pg 25.7-32.2 MEAN CORPUSCULAR HEMOGLOBIN CONC (BEAKER) (test code = 752) 33.2 GM/DL 32.3-36.5 RED CELL DISTRIBUTION WIDTH (BEAKER) (test code = 412) 13.9 % 11.6-14.4 PLATELET COUNT (BEAKER) (sugey t code = 756) 167 K/CU MM 150-450 MEAN PLATELET VOLUME (BEAKER ) (test code = 754) 10.1 fL 9.4-12.4 NUCLEATED RED BLOOD CELLS (BEAKER) (test code = 413) 0 /100 WBC 0-0 NEUTROPHILS RELATIVE PERCENT (BEAKER) (test code = 429) 89 % LYMPHOCYTES RELATIVE PERCENT (BEAKER) (test code = 430) 5 % MONOCYTES RELATIVE PERCENT (BEAKER) (test code = 431) 5 % EOSINOPHILS RELATIVE PERCENT (BEAKER) (test code = 432) 0 % BASOPHILS RELATIVE PERCENT (BEAKER) (test code = 437) 0 % NEUTROPHILS ABSOLUTE COUNT (BEAKER) (test code = 670) 10.50 K/ L 1.78-5.38 H LYMPHOCYTES ABSOLUTE COUNT (BEAKER) (test code = 414) 0.58 K/ L 1.32-3.57 L MONOCYTES ABSOLUTE COUNT (BE SARAHI) (test code = 415) 0.53 K/ L 0.30-0.82 EOSINOPHILS ABSOLUTE COUNT (BEAKER) (test code = 416) 0.02 K/ L 0.04-0.54 L BASOPHILS ABSOLUTE COUNT (BE SARAHI) (test code = 417) 0.04 K/ L 0.01-0.08 IMMATURE GRANULOCYTES-RELATI VE PERCENT (BEAKER) (test code = 2801) 0.70 % 0.00-1.00 B-TYPE NATRIURETIC FACTOR (BNP)2023-07-29 02:53:26* Test Item Value Reference Range Interpretation Comme nts B-TYPE NATRIURETIC PEPTIDE ( BEAKER) (test code = 700) 582 pg/mL 0-100 H Creping Machine Operator ID - ADMINBASIC METABOLIC [id number] 02:47:32* Test Item Value Reference Range Interpretation Comme nts SODIUM (BEAKER) (test code = 381) 132 meq/L 136-145 L POTASSIUM (BEAKER) (test code = 379) 4.8 meq/L 3.5-5.1 CHLORIDE (BEAKER) (test code = 382) 100 meq/L 98-107 CO2 (BEAKER) (test code = 355) 18 meq/L 22-29 L BLOOD UREA NITROGEN (BEAKER) (test code = 354) 30 mg/dL 7-21 H CREATININE (BEAKER) (test code = 358) 1.40 mg/dL 0.57-1.25 H GLUCOSE RANDOM (BEAKER) (test code = 652) 388 mg/dL 70-105 H CALCIUM (BEAKER) (test code = 697) 8.3 mg/dL 8.4-10.2 L EGFR (BEAKER) (test code = 1092) 50 mL/min/1.73 sq m Interpretation of eG FR values Stage Description Result G1 Normal or high >=90 G2 Mildly decreased 60-89 G3a Mildly to moderately 45-59 G3b Moderately to severely 30-44 G4 Severly decreased 15-29 G5 Kidney failure <15Reported eGFR is based on the CKD-EPI 2020 equation that does not use a race coefficientEstimated GFR is not as accurate as Creatinine Clearance in predicting glomerular filtration rate. Estimated GFR is not applicable for dialysis patients Creping Machine Operator ID - [id number] 02:47:32* Test Item Value Reference Range Interpretation Comme nts MAGNESIUM (BEAKER) (test cod e = 627) 1.4 mg/dL 1.6-2.6 L Creping Machine Operator ID - ADMINHEPATIC FUNCTION [id number] 02:47:32* Test Item Value Reference Range Interpretation Comme nts TOTAL PROTEIN (BEAKER) (test code = 770) 5.4 gm/dL 6.0-8.3 L ALBUMIN (BEAKER) (test code = 1145) 3.4 g/dL 3.5-5.0 L BILIRUBIN TOTAL (BEAKER) (te st code = 377) 0.5 mg/dL 0.2-1.2 BILIRUBIN DIRECT (BEAKER) (t est code = 706) 0.3 mg/dL 0.1-0.5 ALKALINE PHOSPHATASE (BEAKER ) (test code = 346) 80 U/L 40-150 AST (SGOT) (BEAKER) (test co de = 353) 33 U/L 5-34 ALT (SGPT) (BEAKER) (test co de = 347) 19 U/L 6-55 Creping Machine Operator ID - ADMINPOCT-GLUCOSE [id number] 02:29:55* Test Item Value Reference Range Interpretation Comme nts POC-GLUCOSE METER (BEAKER) (test code = 1538) 390 mg/dL 70-110 H : TESTED AT [address], [address]: Creping Machine Operator/Train Caller ID = [id number] for Sachin Conde POC ACTIVATED CLOTTING [id number] 01:43:04* Test Item Value Reference Range Interpretation Comme nts Activated Clotting Time (test code = 3184-9) 304 sec : 74-137 se conds, Baseline: TESTED AT [address], [address]: Creping Machine Operator/Train Caller ID = [id number] for Batista (contract), Leyla [id number] 01:43:04* Test Item Value Reference Range Interpretation Comme nts ACTIVATED CLOTTING TIME (BEAKER) (test code = 441) 233 sec : 74-137 seconds , Baseline: TESTED AT [address], [address]: Creping Machine Operator/Train Caller ID = [id number] for Batista (contract), Leyla [id number] 01:42:19* Test Item Value Reference Range Interpretation Comme nts ACTIVATED CLOTTING TIME (BEAKER) (test code = 441) 250 sec : 74-137 seconds , Baseline: TESTED AT [address], [address]: Creping Machine Operator/Train Caller ID = [id number] for Batista (contract), Leyla HEMOGLOBIN [id number] 00:00:00* Test Item Value Reference Range Interpretation Comme nts A1C (test code = 4548-4) 7.8 Notes Date/Time Note Provider Source 2024-07-17 14:49:00 [id number] [address] PATIENT NAME: NAVJOT DAS ADMIT DATE: 07/08/24 ACCOUNT NO: [id number] ROOM [facility]: [facility] AGE: 83 REPORT TYPE: eECHOCARDIOGRAM REPORT SEX: M ADMITTING PHYSICIAN: Yuko Henson MD ATTENDING PHYSICIAN: Yuko Henson MD *[facility]* [address] [place] [address] Transthoracic Echocardiogram Patient: Navjot Das Study Date: 07/11/2024 BP: URN: [id number] Location: : 1940 Age: 83 Gender: M Height: 69 in / 175.3 cm Weight: 142 lb / 64.4 kg BMI/BSA: 21 kg/m 2 / 1.77 m 2 *Ordering Physician: * Yesenia Parada *Fellow: * Florentino Collazo MD *Interpreting Physician: * Hakeem Rowland MD *Care Trainer: * Neri Crawford Indications: PRE-OP. Study data: Transthoracic echocardiogram. Procedure: A transthoracic echocardiogram was performed. Images were obtained using a [employer] E Portable cardiac ultrasound machine. Image quality was adequate. Complete 2D, complete spectral Doppler, and color Doppler. Location: Bedside. Patient status: Inpatient. Patient room number: 905. Study status: Routine. Heart rate: 73 bpm. Findings Left ventricle: The cavity size is normal. Wall thickness is normal. Systolic function is normal. The estimated ejection fraction is 55-60%. Wall motion is normal; there are no regional wall motion abnormalities. Grade I diastolic dysfunction. PATIENT NAME: NAVJOT DAS Right ventricle: The cavity size is normal. Systolic function is normal. Ventricular septum: The outflow septum has a sigmoid appearance. Left atrium: The atrium is mildly dilated. Right atrium: The atrium is normal in size. Atrial septum: The septum bows from right to left, consistent with increased right atrial pressure. Aorta: Aortic root: The root is normal-sized and calcified. Aortic valve: The valve is trileaflet. The leaflets are moderately calcified. The findings are consistent with mild stenosis. There is mild regurgitation. Mitral valve: The leaflets are mildly thickened. There is no evidence of stenosis. There is moderate regurgitation. Tricuspid valve: The valve is structurally normal. There is no regurgitation. Pulmonic valve: The valve is structurally normal. There is no regurgitation. Pericardium: There is no pericardial effusion. Pulmonary arteries: The main pulmonary artery is normal-sized. Systemic veins: Inferior vena cava: The IVC is normal-sized. Measurements Left ventricle Value Ref RUPA, LAX 5.0 cm 4.2 - 5.8 ESD, LAX 3.5 cm 2.5 - 4.0 FS, LAX 31 % 25 - 43 RUPA major ax, A2C 8.7 cm --------- ESD major ax, A2C 6.7 cm --------- IVS, ED 1.0 cm 0.6 - 1.0 ESD 3.5 cm 2.5 - 4.0 FS 31 % 25 - 43 PW, ED 1.0 cm 0.6 - 1.0 IVS/PW, ED 1.03 --------- EF 58 % 52 - 72 EF, MM on 2D Teich. 58 % >=55 E', lat alyssia, TDI 9.7 cm/sec >=10.0 E/e', lat alyssia, TDI 6 <=13 E', med alyssia, TDI 5.0 cm/sec >=7.0 E/e', med alyssia, TDI 12 --------- E', avg, TDI 7.4 cm/sec --------- E/e', avg, TDI 8 <=14 LVOT Value Ref Diam, S 2.21 cm --------- Area 3.8 cm 2 --------- Peak mickey, S 0.8 m/sec --------- Mean mickey, S 0.57 m/sec --------- VTI, S 18.5 cm --------- Peak grad, S 3 mm Hg --------- Mean grad, S 1 mm Hg --------- SV 71 ml --------- PATIENT NAME: NAVJOT DAS SV/bsa 40 ml/m 2 --------- Right ventricle Value Ref TAPSE, 2D 1.4 cm >=1.7 TAPSE, MM 1.4 cm >=1.7 S' lateral 5.7 cm/sec >=9.5 RVOT Value Ref Peak v, S 0.58 m/sec --------- Peak grad, S 1 mm Hg --------- Left atrium Value Ref LA ID 4.5 cm --------- AP dim, ES 4.5 cm 3.0 - 4.0 AP dim ES, LAX 4.5 cm 3.0 - 4.0 SI dim ES, LAX 4.5 cm --------- Vol/bsa, S 24 ml/m 2 16 - 34 Vol, ES, 2-p 45 ml --------- Vol/bsa, ES, 2-p 26 ml/m 2 16 - 34 LA/Ao root ratio 1.26 --------- AP dim, ES MM 4.5 cm 3.0 - 4.0 LA/Ao root ratio, MM 1 --------- Right atrium Value Ref Area, ES 9 cm 2 10 - 18 Area, ES, A4C 9 cm 2 10 - 18 Aortic valve Value Ref Peak v, S 2 m/sec --------- Mean v, S 1.44 m/sec --------- VTI, S 42.4 cm --------- Mean grad, S 9 mm Hg --------- Peak grad, S 15.2 mm Hg --------- LVOT/AV, VTI ratio 0.44 --------- MICHAEL, VTI 1.76 cm 2 --------- LVOT/AV, Vpeak ratio 0.41 --------- MICHAEL, Vmax 1.59 cm 2 --------- AR peak v 3.2 m/sec --------- AR decel 266.97 cm/s 2 --------- AR decel time 1204 ms --------- AR PHT 349 ms --------- AR peak grad 41 mm Hg --------- Mitral valve Value Ref Mean v, D 0.53 m/sec --------- Peak E 0.08 m/sec --------- Peak A 1.14 m/sec --------- VTI leaflet coapt 27.7 cm --------- MiV/LVOT VTI 1.5 --------- Decel time 153 ms --------- PHT 76 ms --------- Mean grad, D 2 mm Hg --------- Peak grad, D 6.2 mm Hg --------- Peak E/A ratio 0.52 --------- PATIENT NAME: DASNAVJOT MVA, PHT 2.9 cm 2 --------- MR peak v 4.54 m/sec --------- Aortic root Value Ref Root diam 3.6 cm 2.5 - 4.0 Root diam, ED MM 4.5 cm --------- Ascending aorta Value Ref AAo AP diam, S 3.9 cm --------- Conclusions Summary: 1. Left ventricle: The cavity size is normal. Wall thickness is normal. Systolic function is normal. The estimated ejection fraction is 55-60%. Wall motion is normal; there are no regional wall motion abnormalities. Grade I diastolic dysfunction. 2. Left atrium: The atrium is mildly dilated. 3. Atrial septum: The septum bows from right to left, consistent with increased right atrial pressure. 4. Aortic valve: The findings are consistent with mild stenosis. 5. Mitral valve: There is moderate regurgitation. Electronically signed by Hakeem Rowland MD 07/17/2024 14:48 at 1449 PATIENT NAME: NAVJOT DAS [facility] 2024-07-11 13:22:00 [facility] ([facility]) Discharge Summary REPORT#:[id number] REPORT STATUS: Signed REPORT INITIALIZATION DATE:07/11/24 TIME: 1322 PATIENT: NAVJOT DAS UNIT #: [id number] ROOM: [facility] BED: 1 : 38 AGE: 83 SEX: M ATTEND: Yuko Beauchamp MD ADM AUTHOR: Yuko Beauchamp MD REPT SERVICE DT/TIME: 07/11/24 1322 * ALL edits or amendments must be made on the electronic/computer document * General Information Discharge date: 07/11/24 Discharge diagnosis: severe PAD c/b ulcerative wound Hospital course: 83yo M admitted for management of severe PAD c/b ulcerative wound. #PAD: revascularization to be scheduled as outpt -outpt vascular surgery clinic f/u scheduled #HTN: stable BP -continue home BP meds #CKD3: GFR @ baseline -renally dose Rx PRN, no nephrotoxics, strict I/Os #T2DM: stable FSG -continue current regimen #HLD: ASCVD > 7.5% -continue statin #BPH: c/b UTI -continue proscar + fosfomycin #Lytes: WNL -continue supportive care #Dispo: DC home Pt. condition on discharge: stable Med Rec Med Rec Discharge meds: Continue taking these medications: Metoprolol Succ Xl (Toprol Xl) 25 MG TAB.SR.24H 25 MILLIGRAM ORAL DAILY. Spironolactone (Aldactone) 25 MG TAB 25 MILLIGRAM ORAL DAILY. Sacubitril/Valsartan (Entresto 49 Mg-51 Mg Tablet) 1 TAB TAB 1 EACH ORAL TWICE DAILY. Apixaban (Eliquis) 5 MG TAB 5 MILLIGRAM ORAL TWICE DAILY. Atorvastatin (Lipitor) 80 MG TAB 80 MILLIGRAM ORAL BEDTIME. Finasteride (Proscar) 5 MG TAB Glimepiride (Glimepiride) 4 MG TAB 4 MILLIGRAM ORAL DAILY. Instructions: WITH BREAKFAST Empagliflozin (Jardiance) 25 MG TAB 25 MILLIGRAM ORAL DAILY. Start taking the following new medications: Fosfomycin Tromethamine (Fosfomycin Tromethamine) 3 GRAM PACKET 3 GRAM ORAL MONDAY, MONDAY, MONDAY. Qty = 3 No Refills Objective VS/I O Last Documented: Result Date Time Pulse Ox 100 07/11 1144 B/P 100/51 07/11 1144 B/P Mean 67.0 07/11 1144 O2 Delivery Room air 07/11 1144 Temp 36.6 07/11 1144 Pulse 72 07/11 1144 Resp 16 07/11 1144 24 hour I O ending at 0700: 07/10 1900 07/11 0700 Intake Total 500 Output Total 550 Balance -50 Intake, Oral 500 Output, Urine 550 PATIENT WEIGHT: Weight (lb): 142 Weight (oz): 13.75 Weight (kg): 64.800 Wound/incision: Location: R. foot Site Condition: dressing clean dry, dressing intact, ulcerative R. foot wound Free Text Obj Notes Free Text Obj Notes: General appearance: alert, awake, oriented, mental status normal, no respiratory distress Head/Eyes: atraumatic, EOMI, normocephalic, PERRLA Neck: full range of motion, non-tender, no JVD, no masses or swelling Cardiovascular: normal heart sounds, regular rate rhythm, no gallop, no murmur , no rub Respiratory: aerating well, clear to auscultation, symmetric expansion, no distress Abdomen: non-tender, normal bowel sounds, soft, no distention, no mass/ organomegaly Extremities: calf tenderness, decreased range of motion, femoral pulses, no clubbing, no cyanosis Neuro/PALEOLOGY PROFESSOR: alert, oriented X 3, CNII-XII intact, normal speech Skin: dry, intact, normal temperature, no rash Wound/incision: Location: R. foot Site Condition: dressing clean dry, dressing intact, ulcerative R. foot wound Psychiatry: normal mood, not homicidal, not suicidal, no hallucinations Discharge Instructions PCP PCP: PCP: Undefined Provider )( Discharge to: Home/Self Care Discharge Instructions Additional Discharge Routines: PCP Follow-Up, Angular Developer Follow-Up )( Diet: Diabetic )( Activity: As Tolerated Discharge management: greater than 30 mins Follow-up Appointments PCP follow up: PCP: Undefined Provider PCP follow up timeframe: In 1-2 weeks Consulting provider 1: Provider 1: Navjot Finn MD Specialty: Vascular Surgery Consult follow up timeframe: In 1-2 weeks at 1327 RPT #:[id number] END OF REPORT [facility] 2024-07-11 09:23:00 [facility] ([facility]) Vascular Surg. Progress Note REPORT #: [id number] REPORT STATUS: Signed DATE: 07/11/24 TIME: 922 PATIENT: NAVJOT DAS UNIT #: [id number] ROOM #: [facility] BED: 1 : 38 AGE: 83 SEX: M ATTEND: Yuko Beauchamp MD ADM AUTHOR: Maurice Salmeron MD R5 AT TENTION *EDITS and/or ADDENDA must be made in Patient Keeper for this note. * * Edits and ammendments created in [employer] are not visible * * in Patient Keeper or the legal medical record (HPF). * Attending: NAVJOT FINN MD 07/11/24 18:12 I saw and examined the patient. I agree with the history and exam in the note attached by Maurice Salmeron MD. Unable to get patient on schedule for OR tomorrow. Will allow patient to be discharged home. Will work on scheduling and have patient to come back for surgery as an outpatient. Author: Maurice Salmeron MD R5 07/11/24 09:36 No availability of the OR Plan for outpatient R fem peroneal bypass with Dr. Finn Note Date: 07/11/24 09:23 -- ASSESSMENT/PLAN -- GENERAL ASSESSMENT: 83 year-old male with PMH of DM, CKD, PAD CABG/ND years ago transferred from [facility] for PAD with associated right foot wound (webspace between 4th/5th digits) 07/05 OSH RLE angiogram showed bilateral infrapopliteal disease with single-vessel runoff. Details below: Right superficial femoral artery has 50 to 60% stenosis. Right popliteal artery is an 80% stenosis Right TP trunk has 70 to 80% stenosis Right anterior tibial artery is SAND MILL OPERATOR CORE SAND Right posterior tibial artery SAND MILL OPERATOR CORE SAND Right peroneal artery is the only single-vessel runoff. Has multiple lesions of 80 to 90% Arterial duplex 3/10 showed monophasic waveforms in all 3 run off vessels bilaterally. S/p RLE angiogram on 07/10 - AT and PT occlusion, peroneal runoff Plan: -Cardiac risk stratification -Right fem peroneal bypass with endoscopic saphenous vein harvest on 07/12 -NPO after midnight -Type and screen -Wound care of right foot wound -Podiatry consultation -Glucose control -Pain control -ASA/Statin -Further management per primary -- SUBJECTIVE -- PATIENT NARRATIVE: Denies groin pain this am REVIEW OF SYSTEMS: Comment Negative except as stated in HPI. -- EXAM -- VITALS (07/10 09:23 - 07/11 09:23): Blood pressure: 116/59 (90/48 - 132/66) Respiratory rate: 16 (16 - 18) Temperature C: 37.0 (36.8 - 37.1) Temperature source: Oral Pulse Rate: 80 (74 - 90) IOS (07/10 07:00-07/11 07:00): Net-50 [id number] Oral ml:500 Urinary catheter ml:550 EXAM: General Well developed, well nourished, in no apparent distress. Head Normocephalic, atraumatic. Neck No masses, no thyromegaly, no abnormal cervical nodes, trachea midline. Chest Grossly normal appearance. Abdomen Soft, non-tender, no organomegaly, no masses noted. Musculoskeletal No deformity. Extremities No clubbing, no cyanosis, no edema. Right foot with wound at webspace between 4th and 5th digit. Neurological No focal deficits. Pulses bilateral DP/PT signals Skin Intact without significant lesions, or rashes. -- DATA -- MEDICATIONS FINASTERIDE 5 MG PO DAILY 0800 DEXTROSE 50%-WATER 25 ML IV ASDIR (PRN) MELATONIN 6 MG PO BEDTIME PRN GLUCAGON 1 MG IM ASDIR (PRN) GLIMEPIRIDE 4 MG PO C BK FLU VACC [id number](65YR UP)/PF 180 MCG IM ASDIR INSULIN GLARGINE 5 UNITS SUBQ Q12HR INSULIN LISPRO INSULIN SLIDING SCALE SUBQ C MEALS HS hydrALAZINE HCL 10 MG IV Q6H PRN SACUBITRIL/VALSARTAN 1 TAB PO BID HYDROcodone BITARTRATE/APAP 1 TAB PO Q4H PRN PATIENT'S OWN MEDICATION EMPAGLIFLOZIN 25 MG PO DAILY@0800 METOPROLOL SUCCINATE 25 MG PO DAILY ATORVASTATIN CALCIUM 80 MG PO BEDTIME LAB RESULTS LIPID PROFILE (CORONARY RISK) (07/11/24 05:02) CORONARY RISK FACTOR 4.48 LIPOPROTEIN LDL 58 HDL CHOLESTEROL 21 L CHOLESTEROL 94 TRIGLYCERIDES 73 HGBA1C - GLYCOSYLATED HGB (07/11/24 05:03) GLYCOSYLATED HEMOGLOBIN (HA1C) 7.6 H GLU BED (07/11/24 07:32) GLUBED 123 H at 1812 at 1812 AT TENTION *EDITS and/or ADDENDA must be made in Patient Keeper for this note. * * Edits and ammendments created in [employer] are not visible * * in Patient Keeper or the legal medical record (HPF). * RPT #: [id number] END OF REPORT [facility] 2024-07-11 08:40:00 [facility] ([facility]) Cardiology Progress Notes REPORT #: [id number] REPORT STATUS: Signed DATE: 07/11/24 TIME: 839 PATIENT: NAVJOT DAS UNIT #: [id number] ROOM #: [id number] BED: 1 : 38 AGE: 83 SEX: M ATTEND: Yuko Beauchamp MD [facility] AUTHOR: Karma Patterson DO CF1 AT TENTION *EDITS and/or ADDENDA must be made in Patient Keeper for this note. * * Edits and ammendments created in [employer] are not visible * * in Patient Keeper or the legal medical record (HPF). * Attending: Mulugeta Calabrese MD 07/12/24 15:22 I have personally seen and examined the patient independently, and reviewed the patient's history, exam, and all cardiac and laboratory data. I agree with the history, physical, and the assessment and plan as outlined by cardiovascular fellow Dr. Karma Patterson DO. I was present and supervised. Note Date: 07/11/24 08:40 -- ASSESSMENT/PLAN -- ASSESSMENT / PLAN: 1: Pre-operative clearance A/P: - Vascular (Dr. Finn) initially planned for fem-peroneal bypass Monday or next week - However, no OR availability, vascular will plan for outpatient procedure - Check chest XR, 2D echo, A1c, lipid panel - Urinalysis showing urinary tract infection which should be treated - Renal function and electrolytes stable - Home GDMT should be continued - RCRI score of 2, equating to 10% risk of major adverse events perioperatively - Able to tolerate METS >4 at baseline - Given age, functionality, comorbidities, he is preliminarily moderate-high risk for surgery - Further risk stratification pending echo results 2: Severe Peripheral Arterial Disease A/P: - Severe popliteal (80%) and infrapopliteal (TP trunk 70-80%, KATHY and AGENTS' RECORDS CLERK both SAND MILL OPERATOR CORE SAND, 80-90% lesions in peroneal) disease with single vessel runoff - Complicated by non-healing right foot arterial ulcer - Vascular planning for possible revascularization inpatient vs. outpatient 3: Coronary Artery Disease S/p Prior Bypass Surgery A/P: - Follows with [employer] Machine Tender at [place] - Triple vessel CABG in 2014 - Per daughter, had PCI (x3 DAVID) in June 2023 - LDL 58 (Target <70). Continue home high-intensity statin baby aspirin indefinitely 4: Ischemic Cardiomyopathy A/P: - NYHA II, reportedly has recovered EF - Currently in a compensated state - Continue Aldactone 25 daily, Entresto 49/51 BID, Toprol 25 daily, Jardiance for heart failure - Echo pending 5: Urinary Tract Infection A/P: - Noted on urinalysis. Management per primary 6: Type II Diabetes Mellitus A/P: - A1c 7.6%. Glucose control per primary 7: Stage 2 chronic kidney disease A/P: - Renal function stable, GFR 50 - Monitor for contrast induced nephropathy s/p angiograms ADDITIONAL COMMENTS: Spoke to daughter over phone today. She reports pt follows with a field marketing manager at [place]. Underwent PCI (x3 DAVID) last June 2023 and reportedly had ejection fraction of 30% that recently recovered to 50%. Reportedly was told by his field marketing manager he is high risk for any kind of surgery. Patient is aware. 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 Finn). Angiography of the limb at [place] reportedly showed severe popliteal (80%) and infrapopliteal (TP trunk 70-80%, KATHY and AGENTS' RECORDS CLERK both SAND MILL OPERATOR CORE SAND, 80-90% lesions in peroneal) disease with single vessel runoff. He has right foot arterial ulcer between fourth and fifth toes for a month now and is not healing and causing severe foot pain. He underwent angiogram this morning as well. Per discussion with vascular resident, plan is for possible fem-peroneal bypass either Monday or early next week (week of July 15). Mr. Das is on Aldactone 25 daily, Entresto 49/51 BID, Toprol 25 daily, Jardiance at home and admits to having a weak heart. However, he has always been fairly active. 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 At baseline, he claims he can go up a flight of stairs with no issues. His labwork here is showing a urinary tract infection. Remaining labs unremarkable. Cardiology has been consulted for pre-operative clearance. PATIENT NARRATIVE: - No acute events overnight - Vascular with plans to do surgery as outpatient given lack of OR availability -- EXAM -- VITALS (07/10 08:40 - 07/11 08:40): Blood pressure: 116/59 (90/48 - 132/66) Respiratory rate: 16 (16 - 18) Temperature C: 37 (36.8 - 37.1) Temperature source: Oral Pulse Rate: 80 (74 - 90) IOS (07/10 07:00-07/11 07:00): Net-50 [id number] Oral ml:500 Urinary catheter ml:550 EXAM: General Well developed, well nourished, in no apparent distress. Head Normocephalic, atraumatic. Neck No masses, no JVD Chest Grossly normal appearance. Abdomen Soft, non-tender, no organomegaly, no masses noted. Musculoskeletal No deformity. Extremities No clubbing, no cyanosis, no edema. Right foot with at webspace between 4th and 5th digit. Neurological No focal deficits. Pulses Pulses normal in all extremities. Skin Intact without significant lesions, or rashes. -- DATA -- MEDICATIONS FINASTERIDE 5 MG PO DAILY 0800 DEXTROSE 50%-WATER 25 ML IV ASDIR (PRN) MELATONIN 6 MG PO BEDTIME PRN GLUCAGON 1 MG IM ASDIR (PRN) GLIMEPIRIDE 4 MG PO C BK FLU VACC [id number](65YR UP)/PF 180 MCG IM ASDIR INSULIN GLARGINE 5 UNITS SUBQ Q12HR INSULIN LISPRO INSULIN SLIDING SCALE SUBQ C MEALS HS hydrALAZINE HCL 10 MG IV Q6H PRN SACUBITRIL/VALSARTAN 1 TAB PO BID HYDROcodone BITARTRATE/APAP 1 TAB PO Q4H PRN PATIENT'S OWN MEDICATION EMPAGLIFLOZIN 25 MG PO DAILY@0800 METOPROLOL SUCCINATE 25 MG PO DAILY ATORVASTATIN CALCIUM 80 MG PO BEDTIME LAB RESULTS LIPID PROFILE (CORONARY RISK) (07/11/24 05:02) CORONARY RISK FACTOR 4.48 LIPOPROTEIN LDL 58 HDL CHOLESTEROL 21 L CHOLESTEROL 94 TRIGLYCERIDES 73 HGBA1C - GLYCOSYLATED HGB (07/11/24 05:03) GLYCOSYLATED HEMOGLOBIN (HA1C) 7.6 H GLU BED (07/11/24 07:32) GLUBED 123 H -- ATTESTATION -- Care Activities / Care Coordination I have reviewed the history and repeated the mclain elements I have seen and examined this patient I have reviewed the progress in the clinical course since the last examination I have discussed the patient's condition with other members of the care team at 1522 at 1522 AT TENTION *EDITS and/or ADDENDA must be made in Patient Keeper for this note. * * Edits and ammendments created in [facility] are not visible * * in Patient Keeper or the legal medical record (HPF). * RPT #: [id number] END OF REPORT [facility] 2024-07-10 21:00:00 [facility] ([facility]) Operative Report REPORT #: [id number] REPORT STATUS: Signed DATE: 07/10/24 TIME: 2099 PATIENT: NAVJOT DAS UNIT #: [id number] ROOM #: P.[id number] BED: 1 : 38 AGE: 83 SEX: M ATTEND: Yuko Beauchamp MD ADM AUTHOR: Navjot Finn MD AT TENTION *EDITS and/or ADDENDA must be made in Patient Keeper for this note. * * Edits and ammendments created in [employer] are not visible * * in Patient Keeper or the legal medical record (HPF). * Note Date: 07/10/24 21:00 -- OPERATION -- SURGERY START DATE/TIME 07/10/2024 21:00 PRE-OPERATIVE DIAGNOSIS: peripheral arterial disease POST-OPERATIVE DIAGNOSIS: peripheral arterial disease INDICATION(S): non-healing right foot wounds NAME OF PROCEDURE: right lower extremity angiography Surgeon:NAVJOT FINN MD [employer] ROOM WORKER(S): None ANESTHESIA: moderate sedation ESTIMATED BLOOD LOSS 5 mls FINDINGS: scattered femoral-popliteal disease with single vessel run-off via the peroneal artery. SPECIMENS(S) REMOVED AND/OR ALTERED: None COMPLICATION(S): None -- DESCRIPTION -- DESCRIPTION OF TECHNIQUE/PROCEDURE: Patient was identified in the preprocedural holding area and brought into the operating room where bilateral groins were prepped and draped in the usual sterile fashion. IV antibiotics were given. Moderate sedation was induced by anesthesiology. A timeout was performed. A mixture of 1% lidocaine and 0.5% ropivacaine was infused into the left groin. A micropuncture needle was used to cannulate the left common femoral artery in a retrograde fashion under ultrasound guidance. A 5 Eritrean sheath was placed. A sheath angiogram was performed which revealed arteriotomy site that would be appropriate for closure device. A 0.035 cross lead wire was navigated into the abdominal aorta under fluoroscopy followed by an Omni Flush catheter. An aortogram was performed at this time which showed patent aortoiliac system. The Crosslead wire was replaced and the contralateral right iliac system was selected using the Omni Flush catheter. The wire and catheter were advanced into the right distal external iliac artery. The wire was removed and right lower extremity angiogram was performed. Angiogram revealed a patent common, deep, and superficial femoral artery with scattered disease throughout the femoral-popliteal segment. I selected the superficial femoral artery and advance the catheter for more selective angiogram. The popliteal artery and TP trunk have significant disease. The anterior tibial artery and posterior tibial artery are both occluded. The peroneal artery is the single vessel run off to the foot but it has a stenosis at the ostia. Given the single vessel run off and scattered disease I did not believe an endovascular approach would benefit the patient. He would benefit more from a bypass if good vein was available. I decided to complete the procedure at this time. Both the cross lead wire and Omni Flush catheter were removed from the body. I inserted a J-wire into the 5 Eritrean sheath prior to removal and deployment of a Angio-Seal with good hemostasis. A sterile dressing was applied. Lap, needle, and instrument count was correct. I was present and scrubbed for the entire case. Patent without any significant disease. There was brisk flow through the the posterior tibial and peroneal artery. at 2114 AT TENTION *EDITS and/or ADDENDA must be made in Patient Keeper for this note. * * Edits and ammendments created in [employer] are not visible * * in Patient Keeper or the legal medical record (HPF). * RPT #: [id number] END OF REPORT [facility] 2024-07-10 16:58:00 [facility] ([facility]) Cardiology Consultation REPORT #: [id number] REPORT STATUS: Signed DATE: 07/10/24 TIME: 1657 PATIENT: NAVJOT DAS UNIT #: [id number] ROOM #: P.[id number] BED: 1 : 38 AGE: 83 SEX: M ATTEND: Yuko Beauchamp MD [facility] AUTHOR: Karma Patterson DO CF1 AT TENTION *EDITS and/or ADDENDA must be made in Patient Keeper for this note. * * Edits and ammendments created in [employer] are not visible * * in Patient Keeper or the legal medical record (HPF). * Attending: Hakeem Rowland MD 09/05/24 18:20 I have personally seen and examined the patient independently, and reviewed the patient's history, exam, and all cardiac and laboratory data on 07/10/2024. I agree with the history, physical, and the assessment and plan as outlined by Dr. Patterson, Cardiovascular Fellow. Note Date: 07/10/24 16:58 -- ASSESSMENT/PLAN -- ASSESSMENT PLAN: 1: Pre-operative clearance A/P: - Vascular (Dr. Finn) planning for possible fem-peroneal bypass Monday or early next week (week of July 15) - Check chest XR, 2D echo, A1c, lipid panel - Urinalysis showing urinary tract infection which should be treated - Renal function and electrolytes stable - Home GDMT should be continued - RCRI score of 2, equating to 10% risk of major adverse events perioperatively - Able to tolerate METS >4 at baseline - Given age, functionality, comorbidities, he is moderate-high risk for surgery 2: Severe Peripheral Arterial Disease A/P: - Severe popliteal (80%) and infrapopliteal (TP trunk 70-80%, KATHY and AGENTS' RECORDS CLERK 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 early next week - Agree with podiatry consult 3: Coronary Artery Disease S/p Prior Bypass Surgery A/P: - Triple vessel CABG in 2014 - Resume home high-intensity statin - Should be on baby aspirin at least 4: Ischemic Cardiomyopathy A/P: - NYHA II, unknown ejection fraction - Currently in a compensated state - Continue Aldactone 25 daily, Entresto 49/51 BID, Toprol 25 daily, Jardiance for heart failure - Echo pending 5: Urinary Tract Infection A/P: - Noted on urinalysis. Management per primary 6: Type II Diabetes Mellitus A/P: - Will check A1c. Glucose control per primary 7: Stage 2 chronic kidney disease A/P: - Renal function stable, GFR 50 - Monitor for contrast induced nephropathy s/p angiograms -- HISTORY -- REASON FOR CONSULT: Pre-op clearance and optimization CHIEF COMPLAINT: Leg pain HPI: Navjot Das is a pleasant 83 year old gentleman with multivessel coronary artery disease status post triple vessel CABG (2014), chronic systolic HFrEF, severe peripheral arterial disease, type II diabetes mellitus, stage II CKD, who was transferred from [facility] on 07/09/24 for evaluation for right lower extremity revascularization by vascular surgery team (Dr. Finn). Angiography of the limb at [place] reportedly showed severe popliteal (80%) and infrapopliteal (TP trunk 70-80%, KATHY and AGENTS' RECORDS CLERK both SAND MILL OPERATOR CORE SAND, 80-90% lesions in peroneal) disease with single vessel runoff. He has right foot arterial ulcer between fourth and fifth toes for a month now and is not healing and causing severe foot pain. He underwent angiogram this morning as well. Per discussion with vascular resident, plan is for possible fem-peroneal bypass either Monday or early next week (week of July 15). Mr. Das is on Aldactone 25 daily, Entresto 49/51 BID, Toprol 25 daily, Jardiance at home and admits to having a weak heart. However, he has always been fairly active. 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 At baseline, he claims he can go up a flight of stairs with no issues. His labwork here is showing a urinary tract infection. Remaining labs unremarkable. Cardiology has been consulted for pre-operative clearance. PAST MEDICAL HISTORY: DM CKD PAD CAD PAST SURGICAL HISTORY: CABG -- ALLERGIES/HOME MEDS -- Modifications made in this section do not update Allergy and Home Medication List ALLERGIES - codeine ( Mild - Allergy ) HOME MEDICATIONS - Apixaban Tab (Eliquis Tab) (PO - BID - 5 MG) - Atorvastatin Tab (Lipitor Tab) (PO - BEDTIME - 80 MG) - Finasteride Tab (Proscar Tab) (Oral) - Glimepiride Tab (Amaryl Tab) (PO - DAILY - 4 MG) - Jardiance tablet (empagliflozin) (PO - DAILY - 25 MG) - Metoprolol Succinate XL Tab (Toprol XL Tab) (PO - DAILY - 25 MG) - Sacubitril/Valsartan 49/51 Tab (Entresto 49mg/51mg Tab) (PO - BID - 1 EACH) - Spironolactone Tab (Aldactone Tab) (PO - DAILY - 25 MG) -- EXAM -- VITALS (07/09 16:58 - 07/10 16:58): Respiratory rate: 18 (16 - 18) Blood pressure: 117/62 (108/47 - 132/66) Temperature source: Oral Pulse Rate: 83 (74 - 90) Temperature C: 36.8 (36.5 - 37) IOS (07/09 07:00-07/10 07:00): Net-1,075.00 Intake1,075.00 Output2,150 Continent stool count:1 IV fluid 1 volume ml:175 Oral ml:900 Urinary catheter ml:1,550 Void ml:600 EXAM: General: Well developed, well nourished, in no apparent distress. Head: Normocephalic, atraumatic. Neck: No masses, no JVD Chest: Grossly normal appearance. Abdomen: Soft, non-tender, no organomegaly, no masses noted. Musculoskeletal: No deformity. Extremities: No clubbing, no cyanosis, no edema. Right foot with at webspace between 4th and 5th digit. Neurological: No focal deficits. Pulses: Pulses normal in all extremities. Skin: Intact without significant lesions, or rashes. -- DATA -- ALLERGIES MEDICATIONS FINASTERIDE 5 MG PO DAILY 0800 diphenhydrAMINE HCL 12.5 MG IV PACU ONCE PRN DEXTROSE 50%-WATER 25 ML IV ASDIR (PRN) ACETAMINOPHEN 1000 MG IV PACU INSULIN GLARGINE 5 UNITS SUBQ Q12HR hydrALAZINE HCL 10 MG IV Q6H PRN HYDROmorphone HCL 0.5 MG IV PACU Q10MIN PRN morphine SULFATE 2 MG IV PACU Q5MIN PRN PATIENT'S OWN MEDICATION EMPAGLIFLOZIN 25 MG PO DAILY@0800 flumazeniL 0.2 MG IV PACU ASDIR PRN MELATONIN 6 MG PO BEDTIME PRN GLUCAGON 1 MG IM ASDIR (PRN) GLIMEPIRIDE 4 MG PO C BK FLU VACC [id number](65YR UP)/PF 180 MCG IM ASDIR hydrALAZINE HCL 10 MG IV PACU Q10MIN PRN ATROPINE SULFATE 0.5 MG IV PACU Q5MIN PRN INSULIN LISPRO INSULIN SLIDING SCALE SUBQ C MEALS HS PREGABALIN 75 MG PO PACU CELECOXIB 200 MG PO PACU SACUBITRIL/VALSARTAN 1 TAB PO BID nalOXone HCL 0.04 MG IV PACU Q2MIN PRN EPINEPHrine 2.25% 0.5 ML NEB PACU ASDIR PRN PROCHLORPERAZINE EDISYLATE 5 MG IV PACU ONCE PRN MEPERIDINE HCL 12.5 MG IV PACU ONCE PRN HYDROcodone BITARTRATE/APAP 1 TAB PO Q4H PRN oxyCODONE HCL 5 MG PO PACU Q4H PRN LABETALOL HCL 10 MG IV PACU Q5MIN PRN METOPROLOL SUCCINATE 25 MG PO DAILY ATORVASTATIN CALCIUM 80 MG PO BEDTIME LAB RESULTS MAG (07/10/24 04:07) MAGNESIUM 2.6 COMPREHENSIVE METABOLIC PANEL (07/10/24 04:07) ALBUMIN 3.2 TOTAL PROTEIN 5.6 L SGOT/AST 18 BILIRUBIN TOTAL 0.3 ALKALINE PHOSPHATASE 97 SGPT/ALT 17 CALCIUM 8.1 L BLOOD UREA NITROGEN 33 H GLUCOSE 104 CREATININE 1.4 H GLOMERULAR FILTRATION RATE 49 L POTASSIUM 4.4 SODIUM 132 L CARBON DIOXIDE 24 CHLORIDE 99 CBC W/AUTO DIFF (07/10/24 04:07) MEAN PLATELET VOLUME 9.6 BASOPHIL # 0.04 LYMPHOCYTE % 16.4 L NEUTROPHIL % 70 MONOCYTE # 0.66 LYMPHOCYTE # 1.47 WHITE BLOOD CELL 9 EOSINOPHIL # 0.5 H EOSINOPHIL % 5.6 MONOCYTE % 7.3 NEUTROPHIL # 6.28 BASOPHIL % 0.4 MEAN CELL HGB CONCENTRATION 33.2 MEAN CELL HGB 31.4 H PLATELET COUNT 221 RED CELL DISTRIBUTION WIDTH 13.4 HEMOGLOBIN 9.0L L RED BLOOD CELL 2.87 L MEAN CELL VOLUME 94.4 H HEMATOCRIT 27.1L L GLU BED (07/10/24 07:43) GLUBED 133 H UA RFLX MICR amp;CULT IF INDICATED (07/10/24 13:17) UA PH DIPSTICK 6 UA PROTEIN DIPSTICK 30 A UA UROBILINOGEN DIPSTICK NORMAL UA YEAST 1+ A UA COLOR COLORLESS UA APPEARANCE CLOUDY H UA GLUCOSE DIPSTICK NEGATIVE UA BILIRUBIN DIPSTICK NEGATIVE UA KETONE DIPSTICK NEGATIVE UA SPECIFIC GRAVITY 1.015 UA BLOOD DIPSTICK SMALL A UA NITRITE DIPSTICK NEGATIVE UA LEUKOCYTE ESTERASE DIPSTICK LARGE A UA WBC 6-10 A UA RBC 0-2 UA BACTERIA 1+ A UA SQUAMOUS CELLS NONE SEEN -- ATTESTATION -- Care Activities / Care Coordination I have reviewed the history and repeated the mclain elements I have seen and examined this patient I have reviewed the progress in the clinical course since the last examination I have discussed the patient's condition with other members of the care team at 1820 at 1820 AT TENTION *EDITS and/or ADDENDA must be made in Patient Keeper for this note. * * Edits and ammendments created in [facility] are not visible * * in Patient Keeper or the legal medical record (HPF). * RPT #: [id number] END OF REPORT [facility] 2024-07-10 11:17:00 [facility] ([facility]) Hospitalist Progress Note REPORT#:[id number] REPORT STATUS: Signed REPORT INITIALIZATION DATE:07/10/24 TIME: 1116 PATIENT: NAVJOT DAS UNIT #: [id number] ROOM: [facility] BED: 1 : 38 AGE: 83 SEX: M ATTEND: Yuko Beauchamp MD ADM AUTHOR: Yuko Beauchamp MD REPT SERVICE DT/TIME: 07/10/24824 * ALL edits or amendments must be made on the electronic/computer document * Subjective Chief complaint: RLE pain Comments: INterval Hx: CHAZ overnight Objective General VS/I O: Vital Signs: Date Time Temp Pulse Resp B/P B/P Pulse O2 O2 Flow FiO2 Mean Ox Delivery Rate 07/10 808 37.0 82 108/47 67.0 97 07/10 356 36.5 83 18 116/54 74.9 97 Room air 03/11 2318 37.0 84 16 112/50 70.6 98 Room air 07/09 2024 37.0 74 16 116/52 73.6 99 Room air 07/09 1505 36.8 76 18 106/48 67.4 98 07/09 1133 36.9 86 18 115/56 75.5 99 24 hour I O ending at 0700: 07/09 1900 07/10 0700 Intake Total 1000.00 75.00 Output Total 600 1550 Balance 400.00 -1475.00 Intake, IV 100.00 75.00 Intake, Oral 900 Number 1 Bowel Movements Output, Urine 600 1550 Patient 64.8 kg Weight Weight Stated/Reported Measurement Method PATIENT WEIGHT: Weight (lb): 142 Weight (oz): 13.75 Weight (kg): 64.800 Medications: Active Meds + DC'd Last 24 Hrs Heparin Sodium (Porcine) (HEPARIN SODIUM) 0 .STK-MED ONE .ROUTE (DC) Fentanyl Citrate (fentaNYL CITRATE/PF) 0 .STK-MED ONE .ROUTE (DC) Propofol (DIPRIVAN) 0 .STK-MED ONE .ROUTE (DC) Iopamidol (ISOVUE-250) 0 .STK-MED ONE .ROUTE (DC) Lidocaine HCl (XYLOCAINE HCL 1%) 20 ML .STK-MED ONE IV (DC) Ropivacaine (NAROPIN 0.5%) 0 .STK-MED ONE .ROUTE (DC) Acetaminophen (Ofirmev) 100 ML PACU IV (CKD) Atropine Sulfate (ATROPINE 1MG/10ML) 0.5 MG PACU Q5MIN PRN PRN IV Celecoxib (CeleBREX) 200 MG PACU PO (CKD) Diphenhydramine HCl (BENADRYL INJ) 12.5 MG PACU ONCE PRN PRN IV Epinephrine (RACEPINEPHrine U/D) 0.5 ML PACU ASDIR PRN PRN NEB (CKD) Flumazenil (ROMAZICON,MAZICON) 0.2 MG PACU ASDIR PRN PRN IV Hydralazine HCl (APRESOLINE) 10 MG PACU Q10MIN PRN PRN IV Hydromorphone HCl (Dilaudid) 0.5 MG PACU Q10MIN PRN PRN IV Labetalol HCl (TRANDATE, NORMODYNE) 10 MG PACU Q5MIN PRN PRN IV Meperidine HCl (DEMEROL) 12.5 MG PACU ONCE PRN PRN IV Morphine Sulfate (morphine) 2 MG PACU Q5MIN PRN PRN IV Naloxone HCl (NARCAN) 0.04 MG PACU Q2MIN PRN PRN IV Oxycodone HCl (ROXICODONE,OXYIR) 5 MG PACU Q4H PRN PRN PO Pregabalin (LYRICA) 75 MG PACU PO (CKD) Prochlorperazine Edisylate (COMPAZINE ) 5 MG PACU ONCE PRN PRN IV Melatonin (Melatonin) 6 MG BEDTIME PRN PRN PO Magnesium Sulfate (MAGNESIUM SULFATE 2GM/50 ML) 50 ML Q2H IV (DC) Insulin Glargine (Lantus/Semglee Insulin) 5 UNITS Q12HR SUBQ Magnesium Sulfate (MAGNESIUM SULFATE 4GM/SWFI 100 ML) 100 ML ONCE ONE IV (DC) Hydrocodone Bitart/Acetaminophen (NORCO 5/325 TABLET) 1 TAB Q4H PRN PRN PO Influenza Virus Vacc Triv Types A B (Fluzone High-Dose Trivalent Syringe ) 180 MCG ASDIR IM Metoprolol Succinate (TOPROL XL) 25 MG DAILY PO Finasteride (PROSCAR) 5 MG DAILY 0800 PO Glimepiride (GLIMEPIRIDE (GENERIC AMARYL)) 4 MG C BK PO Patient Own Medication (PATIENT'S OWN MED--MUST SCAN) EMPAGLIFLOZIN 25 MG (JARDIANCE)- TAKE 1 TABLET ORALLY DAILY DAILY@0800 PO Atorvastatin Calcium (LIPITOR) 80 MG BEDTIME PO Insulin Human Lispro (AdmeLOG) INSULIN SLIDING SCALE C MEALS HS SUBQ Sacubitril/Valsartan (Entresto 49 MG-51 MG Tablet) 1 TAB BID PO Dextrose/Water (DEXTROSE 50% SYR) 25 ML ASDIR PRN IV (CKD) Glucagon (GLUCAGON) 1 MG ASDIR PRN IM Hydralazine HCl (APRESOLINE) 10 MG Q6H PRN PRN IV Physical Exam General appearance: alert, awake, oriented, mental status normal, no respiratory distress Head/Eyes: atraumatic, EOMI, normocephalic, PERRLA Neck: full range of motion, non-tender, no JVD, no masses or swelling Cardiovascular: normal heart sounds, regular rate rhythm, no gallop, no murmur , no rub Respiratory: aerating well, clear to auscultation, symmetric expansion, no distress Abdomen: non-tender, normal bowel sounds, soft, no distention, no mass/ organomegaly Extremities: calf tenderness, decreased range of motion, femoral pulses, no clubbing, no cyanosis Neuro/PALEOLOGY PROFESSOR: alert, oriented X 3, CNII-XII intact, normal speech Skin: dry, intact, normal temperature, no rash Wound/incision: Location: R. foot Site Condition: dressing clean dry, dressing intact, ulcerative R. foot wound Psychiatry: normal mood, not homicidal, not suicidal, no hallucinations Results Findings/Data: Laboratory Tests 07/09 07/09 07/09 07/10 07/10 1158 1633 2027 0407 0743 Chemistry Sodium (136 - 145 mmol/L) 132 L Potassium (3.5 - 5.1 mmol/L) 4.4 Chloride (98 - 107 mmol/l) 99 Carbon Dioxide (20 - 31 mmol/L) 24 BUN (9 - 23 mg/dL) 33 H Creatinine (0.70 - 1.30 mg/dL) 1.40 H Glomerular Filtr Rate (>60 mL/min) 49 L Glucose (74 - 106 mg/dL) 104 POC Glucose (70 - 105 MG/DL) 256 H 137 H 165 H 133 H Calcium (8.7 - 10.4 mg/dL) 8.1 L Magnesium (1.6 - 2.6 mg/dL) 2.6 Total Bilirubin (0.3 - 1.2 mg/dL) 0.3 AST (<34 U/L) 18 ALT (10 - 49 U/L) 17 Total Alk Phosphatase (46 - 116 U/L) 97.0 Total Protein (5.7 - 8.2 g/dL) 5.6 L Albumin (3.2 - 4.8 g/dL) 3.2 Laboratory Tests 07/10 0407 Hematology WBC (4.8 - 10.8 x10 3/uL) 9.0 RBC (4.70 - 6.10 x10 6/uL) 2.87 L Hgb (14.0 - 18.0 g/dL) 9.0 L Hct (42.0 - 52.0 %) 27.1 L MCV (80.0 - 94.0 fL) 94.4 H MCH (27 - 31 pg) 31.4 H MCHC (33 - 36.5 G/DL) 33.2 RDW (12.9 - 16.9 %) 13.4 Plt Count (150 - 440 x10 3/uL) 221 MPV (8.9 - 12.4 fL) 9.6 Neut % (Auto) (42.2 - 75.2 %) 70.0 Lymph % (Auto) (20.5 - 51.1 %) 16.4 L [place] % (Auto) (1.7 - 9.3 %) 7.3 Eos % (Auto) (0.0 - 7.0 %) 5.6 Baso % (Auto) (0 - 2.5 %) 0.4 Neut # (Auto) (1.80 - 7.70 x10 3/uL) 6.28 Lymph # (Auto) (1.00 - 4.80 x10 3/uL) 1.47 [place]yenne # (Auto) (0.00 - 0.80 x10 3/uL) 0.66 Eos # (Auto) (0.00 - 0.45 x10 3/uL) 0.50 H Baso # (Auto) (0.0 - 0.20 x10 3/uL) 0.04 Radiology data: Recent Impressions: ULTRASOUND - DUP VEIN BENJAMIN 07/10 1919 Report Impression - Status: SIGNED Entered: 07/09/2024 2100 IMPRESSION: RIGHT: Right greater saphenous vein Proximal thigh: 0.59 Mid thigh: 0.31 Distal thigh: 0.35 Knee:0.39 Proximal calf: Mid calf:0.33 Distal calf: 0.32 Femoral vein upper thigh: 0.94 cm Femoral vein mid thigh: 0.82 cm Femoral vein lower thigh: 0.87 cm SSV prox: 0.36 cm SSV mid calf: 0.37 cm SSV distal: 0.36 LEFT: Left greater saphenous vein Proximal thigh: 0.48 Mid thigh: 0.19 Distal thigh: 0.22 Knee:0.16 Proximal calf: 0.16 Mid calf:0.10 Distal calf: 0.12 Femoral vein upper thigh: 0.58 cm Femoral vein mid thigh: 0.65 cm Femoral vein lower thigh: 0.82 cm SSV prox: 0.17 cm SSV mid calf: 0.30 cm SSV distal: 0.35 cm Impression By: Alex SOL M.D. Diagnosis, Assessment Plan Plan discussed with: patient, consultants, nurse Free Text DxA P Notes Free text DxA P notes: 83yo M admitted for management of severe PAD c/b ulcerative wound. #PAD: NPO for agram today -continue management per vascular surgery consult service #HTN: stable BP -continue home BP meds #CKD3: GFR @ baseline -renally dose Rx PRN, no nephrotoxics, strict I/Os #T2DM: stable FSG -continue current regimen #HLD: ASCVD > 7.5% -continue statin #BPH: w/o dysuria -continue proscar #Lytes: WNL -continue supportive care #Dispo: pending clinical recovery -will continue to follow at 2044 RPT #:[id number] END OF REPORT [facility] 2024-07-09 14:15:00 [facility] ([facility]) Hospitalist Progress Note REPORT#:[id number] REPORT STATUS: Signed REPORT INITIALIZATION DATE:07/09/24 TIME: 1415 PATIENT: NAVJOT DAS UNIT #: [id number] ROOM: [facility] BED: 1 : 38 AGE: 83 SEX: M ATTEND: Yuko Beauchamp MD ADM AUTHOR: Yuko Beauchamp MD REPT SERVICE DT/TIME: 07/09/24 0845 * ALL edits or amendments must be made on the electronic/computer document * Subjective Chief complaint: RLE pain Comments: Interval Hx: CHAZ overnight Objective General VS/I O: Vital Signs: Date Time Temp Pulse Resp B/P B/P Pulse O2 O2 Flow FiO2 Mean Ox Delivery Rate 07/09 1133 36.9 86 18 115/56 75.5 99 07/09 0746 36.8 88 14 108/56 72.9 97 Room air 07/09 0405 36.9 90 18 109/61 77.3 97 07/08 2330 36.7 81 18 122/52 75.1 98 07/08 2055 37.2 89 18 131/57 82.0 99 07/08 1631 36.7 85 15 136/62 86.5 100 Room air 24 hour I O ending at 0700: 07/08 1900 07/09 0700 Intake Total 100 Output Total 675 Balance -575 Intake, Oral 100 Output, Urine 675 PATIENT WEIGHT: Weight (lb): Weight (oz): Weight (kg): Medications: Active Meds + DC'd Last 24 Hrs Hydrocodone Bitart/Acetaminophen (NORCO 5/325 TABLET) 1 TAB Q4H PRN PRN PO Influenza Virus Vacc Triv Types A B (Fluzone High-Dose Trivalent Syringe ) 180 MCG ASDIR IM Metoprolol Succinate (TOPROL XL) 25 MG DAILY PO Patient Own Medication (PATIENT'S OWN MED--MUST SCAN) EMPAGLIFLOZIN 25 MG (JARDIANCE)- TAKE 1 TABLET ORALLY DAILY DAILY PO (DC) Empagliflozin (Jardiance) 25 MG DAILY 0800 PO (CAN) Finasteride (PROSCAR) 5 MG DAILY 0800 PO Glimepiride (GLIMEPIRIDE (GENERIC AMARYL)) 4 MG C BK PO (DC) Glimepiride (GLIMEPIRIDE (GENERIC AMARYL)) 4 MG C BK PO Patient Own Medication (PATIENT'S OWN MED--MUST SCAN) EMPAGLIFLOZIN 25 MG (JARDIANCE)- TAKE 1 TABLET ORALLY DAILY DAILY@0800 PO Atorvastatin Calcium (LIPITOR) 80 MG BEDTIME PO Insulin Human Lispro (AdmeLOG) INSULIN SLIDING SCALE C MEALS HS SUBQ Sacubitril/Valsartan (Entresto 49 MG-51 MG Tablet) 1 TAB BID PO Dextrose/Water (DEXTROSE 50% SYR) 25 ML ASDIR PRN IV (CKD) Glucagon (GLUCAGON) 1 MG ASDIR PRN IM Hydralazine HCl (APRESOLINE) 10 MG Q6H PRN PRN IV Physical Exam General appearance: alert, awake, oriented, no acute distress, mental status normal, no respiratory distress Head/Eyes: atraumatic, EOMI, normocephalic, PERRLA Neck: full range of motion, non-tender, no JVD, no masses or swelling Cardiovascular: normal heart sounds, regular rate rhythm, no gallop, no murmur , no rub Respiratory: aerating well, clear to auscultation, symmetric expansion, no distress Abdomen: non-tender, normal bowel sounds, soft, no distention, no mass/ organomegaly Extremities: calf tenderness, decreased range of motion, femoral pulses, no clubbing, no cyanosis Neuro/PALEOLOGY PROFESSOR: alert, oriented X 3, CNII-XII intact, normal speech Skin: dry, intact, normal temperature, no rash Wound/incision: Location: R. foot Site Condition: dressing clean dry, dressing intact, ulcerative R. foot wound Psychiatry: normal mood, not homicidal, not suicidal, no hallucinations Results Findings/Data: Laboratory Tests 07/08 07/08 07/08 07/09 07/09 1633 1747 2056 0811 1158 Chemistry Sodium (136 - 145 mmol/L) 133 L Potassium (3.5 - 5.1 mmol/L) 4.0 Chloride (98 - 107 mmol/l) 99 Carbon Dioxide (20 - 31 mmol/L) 26 BUN (9 - 23 mg/dL) 25 H Creatinine (0.70 - 1.30 mg/dL) 1.30 Glomerular Filtr Rate (>60 mL/min) 54 L Glucose (74 - 106 mg/dL) 181 H POC Glucose (70 - 105 MG/DL) 182 H 284 H 195 H 256 H Calcium (8.7 - 10.4 mg/dL) 7.9 L Magnesium (1.6 - 2.6 mg/dL) 1.1 L Total Bilirubin (0.3 - 1.2 mg/dL) 0.2 L AST (<34 U/L) 15 ALT (10 - 49 U/L) 14 Total Alk Phosphatase (46 - 116 U/L) 104.0 Total Creatine Kinase (34 - 171 U/L) 33 L Total Protein (5.7 - 8.2 g/dL) 5.7 Albumin (3.2 - 4.8 g/dL) 3.3 Laboratory Tests 07/08 1747 Hematology WBC (4.8 - 10.8 x10 3/uL) 6.6 RBC (4.70 - 6.10 x10 6/uL) 2.85 L Hgb (14.0 - 18.0 g/dL) 8.9 L Hct (42.0 - 52.0 %) 27.3 L MCV (80.0 - 94.0 fL) 95.8 H MCH (27 - 31 pg) 31.2 H MCHC (33 - 36.5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 General appearance: awake Head/eyes: normocephalic ENT: normal nose Neck: no JVD (a) C-Spine clearance: no midline tenderness Cardiovascular: no murmur Respiratory: no distress Abdomen: non-tender, soft Genitourinary: no bladder distention Extremities: no edema Musculoskeletal: no tendereness Neuro/PALEOLOGY PROFESSOR: alert, oriented X 3 Results Findings/Data: Laboratory Tests 07/04 07/04 07/03 07/03 07/03 0802 0626 2025 1725 1234 Chemistry Sodium (136 - 145 mmol/L) 135 L Potassium (3.4 - 5.0 mmol/L) 3.7 Chloride (98 - 107 mmol/L) 100 Carbon Dioxide (21 - 32 mmol/L) 28 Anion Gap (4 - 15 GAP calc) 7 BUN (7 - 18 MG/DL) 72 H Creatinine (0.6 - 1.0 MG/DL) 2.0 H Glomerular Filtr Rate (>60 estGFR) 32 L Glucose (70 - 110 MG/DL) 55 L POC Glucose (70 - 110 mg/dL) 71 158 H 133 H Calcium (8.5 - 10.1 MG/DL) 8.8 Troponin I High Sens (0 - 78 ng/L) 38.0 07/03 07/03 1234 1214 Chemistry Sodium (136 - 145 mmol/L) 137 Potassium (3.4 - 5.0 mmol/L) 3.9 Chloride (98 - 107 mmol/L) 99 Carbon Dioxide (21 - 32 mmol/L) 26 Anion Gap (4 - 15 GAP calc) 12 BUN (7 - 18 MG/DL) 78 H Creatinine (0.6 - 1.0 MG/DL) 2.1 H Glomerular Filtr Rate (>60 estGFR) 30 L Glucose (70 - 110 MG/DL) 92 POC Glucose (70 - 110 mg/dL) 106 Calcium (8.5 - 10.1 MG/DL) 9.1 Laboratory Tests 07/04 07/03 0626 1233 Coagulation PTT ([place]) (26 - 35 SECONDS) 71.3 H 55.1 H Laboratory Tests 07/04 0503 Hematology WBC (3.5 - 11.0 K/mm3) 8.4 RBC (4.70 - 6.10 M/mm3) 3.02 L Hgb (12.3 - 15.9 G/DL) 9.5 L Hct (35.8 - 46.7 %) 29.4 L MCV (86.3 - 98.9 Fl) 97.4 MCH (28.9 - 34.4 pg) 31.5 MCHC (32.1 - 34.5 G/DL) 32.3 RDW (11.5 - 14.5 SD) 15.2 H Plt Count (150 - 450 K/mm3) 236 MPV (7.0 - 9.6 fL) 9.20 Neut % (Auto) (40 - 76 %) 68.6 Lymph % (Auto) (20.5 - 51.1 %) 19.8 L [place] % (Auto) (1.7 - 9.3 %) 7.5 Eos % (Auto) (0.0 - 6.0 %) 3.3 Baso % (Auto) (0.0 - 2.0 %) 0.6 Neut # (Auto) (1.8 - 7.6 K/mm3) 5.7 Lymph # (Auto) (0.6 - 3.0 K/mm3) 1.7 [place] # (Auto) (0.2 - 1.5 K/mm3) 0.6 Eos # (Auto) (0.0 - 0.4 K/mm3) 0.3 Baso # (Auto) (0.0 - 0.2 K/mm3) 0.1 Abs Immat Gran (auto) (0.00 - 0.03 x10 3/uL) 0.02 Immature Gran % (0.0 - 5.0 %) 0.2 Nucleated RBC % (0.0 - 1.0 /100WBC%) 0.0 Diagnosis, Assessment Plan Free Text A P: 1. CORI on CKD 3. Etiology likley ATn. Creatinine 2.0. 2. Hypovolemia. 3. Hyponatremia. 4. Hyperkalemia. Improved. 5. DM. 6. HTN. 7. CAD. Recommendations 07/04: Normal saline 75 mL/h. Monitor electrolyte, supplement as needed. 07/03: NS 75 ml/hour. Avoid NSAID. /: Received medical treatment for potassium. Repeat BMP. Sodium bicarbonate drip 100 ml/hour. Avoid NSAID. Urine studies Renal US Thank you for the consultation, any question please call [phone] at 1728 RPT #: [id number] END OF REPORT [facility] 2024-07-03 13:00:00 [facility] Hospitalist Progress Note REPORT#:[id number] REPORT STATUS: Signed REPORT INITIALIZATION DATE:07/03/24 TIME:1300 PATIENT: NAVJOT DAS UNIT #: [id number] ROOM/BED: [place] [address] : 38 AGE: 83 SEX: M ATTEND: Eduardo Mishra MD ADM AUTHOR: Myke Woods MD REPT SERVICE DT/TIME: 07/03/24 1300 * ALL edits or amendments must be made on the electronic/computer document * See Addendum Subjective Free Text Subj Notes Free Text Subj Notes: Patient seen at bedside Admitted overnight for sepsis Potassium is elevated Objective Results Findings/Data: Laboratory Tests 07/02 1554 Blood Gas Puncture Site (DESCRIPTION Site) Other VBG pH (7.26 - 7.43 pH units) 7.24 L VBG pCO2 (33 - 58 mmHg) 26 L VBG pO2 (80 - 100 mmHg) 32 L VBG HCO3 (22.0 - 26.0 mmol/L) 11.1 L VBG O2 Sat (Calc) (72 - 77 % (calc)) 52 L VBG Base Excess (-2.0 - 2.0 mmol/L) -14.5 L O2 Delivery Device (Descript) RA FiO2 (21 - 100 %) 21 Laboratory Tests 07/0305 1214 0808 0426 0426 0426 Chemistry Sodium (136 - 145 mmol/L) 131 L Potassium (3.4 - 5.0 mmol/L) 5.9 *H Chloride (98 - 107 mmol/L) 98 Carbon Dioxide (21 - 32 mmol/L) 23 Anion Gap (4 - 15 GAP calc) 10 BUN (7 - 18 MG/DL) 85 H Creatinine (0.6 - 1.0 MG/DL) 2.1 H Glomerular Filtr Rate (>60 estGFR) 30 L Glucose (70 - 110 MG/DL) 284 H POC Glucose (70 - 110 mg/dL) 106 237 H Hemoglobin A1c (4.8 - 6.0 % A1C) 8.2 H Estim Average Glucose (MG/DLest) 189 Calcium (8.5 - 10.1 MG/DL) 8.8 Total Bilirubin (0.0 - 1.0 MG/DL) 0.4 AST (15 - 37 Unit/L) 29 ALT (30 - 65 Unit/L) 22 L Total Alk Phosphatase (50 - 136 Unit/L) 133 Total Creatine Kinase (21 - 215 Unit/L) 182 Troponin I High Sens (0 - 78 ng/L) 38.3 Total Protein (6.4 - 8.2 G/DL) 6.9 Albumin (3.4 - 5.0 G/DL) 2.8 L Globulin (GM/dL) 4.1 Albumin/Globulin Ratio (1.2 - 2.2 RATIO) 0.7 L Triglycerides (0 - 150 MG/DL) 64 Cholesterol (133 - 200 MG/DL) 110 L LDL Cholesterol Measurd (0 - 129 MG/DL) 63 Non-HDL Cholesterol (<130 mg/dL) 70 HDL Cholesterol (60 MG/DL) 40 L LDL/HDL Ratio (1.48 - 3.22 Avg Ratio) 1.57 Cholesterol/HDL Ratio (0 RATIO) 2.75 TSH (0.34 - 4.82 mcIU/ML) 1.59 07/03 07/03 07/02 07/02 07/02 0403 0213 2013 2013 2013 Chemistry Potassium (3.4 - 5.0 mmol/L) 5.6 H POC Glucose (70 - 110 mg/dL) 280 H Lactic Acid (0.4 - 1.9 mmol/L) 1.9 Uric Acid (3.5 - 7.2 MG/DL) 6.1 Troponin I High Sens (0 - 78 ng/L) 24.1 07/02 1600 1557 1347 1347 Chemistry Sodium (136 - 145 mmol/L) 133 L 128 L Potassium (3.4 - 5.0 mmol/L) 5.4 H 6.7 *H TNP Chloride (98 - 107 mmol/L) 101 99 Carbon Dioxide (21 - 32 mmol/L) 19 L 15 L Anion Gap (4 - 15 GAP calc) 13 14 BUN (7 - 18 MG/DL) 88 H 89 H Creatinine (0.6 - 1.0 MG/DL) 2.2 H 2.2 H Glomerular Filtr Rate (>60 estGFR) 29 L 29 L Glucose (70 - 110 MG/DL) 144 H 173 H Lactic Acid (0.4 - 1.9 mmol/L) 1.3 Calcium (8.5 - 10.1 MG/DL) 9.2 9.4 Troponin I High Sens (0 - 78 ng/L) 20.5 NT-Pro-B Natriuret Pep (0 - 100 PG/ML) 854 H Laboratory Tests 07/03 1347 Coagulation INR (0.8 - 1.2 INR Unit) 1.04 PTT ([place]) (26 - 35 SECONDS) 51.8 H 24.0 L PT Patient/Control Mix (9.3 - 12.9 SECONDS) 11.6 D-Dimer (215 - 500 ng/mLFEU) 937 *H Laboratory Tests 07/03 1347 Hematology WBC (3.5 - 11.0 K/mm3) 8.1 8.8 12.8 H RBC (4.70 - 6.10 M/mm3) 3.19 L 3.14 L 3.79 L Hgb (12.3 - 15.9 G/DL) 9.9 L 9.8 L 12.0 L Hct (35.8 - 46.7 %) 29.9 L 30.0 L 36.8 MCV (86.3 - 98.9 Fl) 93.7 95.5 97.1 MCH (28.9 - 34.4 pg) 31.0 31.2 31.7 MCHC (32.1 - 34.5 G/DL) 33.1 32.7 32.6 RDW (11.5 - 14.5 SD) 14.3 14.2 14.3 Plt Count (150 - 450 K/mm3) 255 230 348 MPV (7.0 - 9.6 fL) 9.40 9.00 8.70 Neut % (Auto) (40 - 76 %) 78.0 H 75.6 Lymph % (Auto) (20.5 - 51.1 %) 14.4 L 15.0 L [place] % (Auto) (1.7 - 9.3 %) 6.8 8.4 Eos % (Auto) (0.0 - 6.0 %) 0.2 0.5 Baso % (Auto) (0.0 - 2.0 %) 0.2 0.3 Neut # (Auto) (1.8 - 7.6 K/mm3) 6.3 6.7 Lymph # (Auto) (0.6 - 3.0 K/mm3) 1.2 1.3 [place] # (Auto) (0.2 - 1.5 K/mm3) 0.6 0.7 Eos # (Auto) (0.0 - 0.4 K/mm3) 0.0 0.0 Baso # (Auto) (0.0 - 0.2 K/mm3) 0.0 0.0 Abs Immat Gran (auto) (0.00 - 0.03 x10 3/uL) 0.03 0.02 Add Manual Diff (CRITERIA DIFF/SCN) NO Immature Gran % (0.0 - 5.0 %) 0.4 0.2 Nucleated RBC % (0.0 - 1.0 /100WBC%) 0.0 0.0 Laboratory Tests 07/03 1347 Serology SARS-CoV-2 Ag (Rapid) (Negative) NEGATIVE Laboratory Tests 07/02 1557 Toxicology Acetone, Qual (NEG SCREEN) NEGATIVE Laboratory Tests 07/03 0426 Urines Ur Random Creatinine (MG/DL) 27.1 U Random Total Protein (MG/DL) 49 Ur Random Sodium (() MEQ/L) 81 Ur Random Potassium (() MEQ/L) 19.7 Microbiology Date/Time Procedure - Status Source Growth 07/02 2013 MRSA Screen - COMP NASAL 07/02 134 Influenza Virus Type B Antigen - COMP NASAL 07/02 1348 Influenza Virus Type A Antigen - COMP NASAL Radiology data: Recent Impressions: CAT SCAN - CT CHEST W/O CONTRAST 07/02 1406 Report Impression - Status: SIGNED Entered: 07/02/2024 1419 IMPRESSION: No acute intrathoracic abnormality. Impression By: Eva Crawford M.D. CAT SCAN - CT HEAD/BRAIN W/O CONT 07/02 1406 Report Impression - Status: SIGNED Entered: 07/02/2024 1415 IMPRESSION: No acute intracranial abnormality. Impression By: Eva Crawford M.D. CAT SCAN - CT C-SPINE W/O CONT 07/02 1406 Report Impression - Status: SIGNED Entered: 07/02/2024 1417 IMPRESSION: No acute bony abnormality of the cervical spine. Impression By: Eva Crawford M.D. RADIOLOGY - XR FOREARM 2 VIEWS LT 07/02 1422 Report Impression - Status: SIGNED Entered: 07/02/2024 1457 IMPRESSION: No acute bony abnormality of the left forearm. Impression By: Eva Crawford M.D. RADIOLOGY - XR HUMERUS 2+V LT 07/02 1422 Report Impression - Status: SIGNED Entered: 07/02/2024 1456 IMPRESSION: No acute bony abnormality of the left humerus. Impression By: Eva Crawford M.D. RADIOLOGY - XR CHEST 1 V 07/02 1422 Report Impression - Status: SIGNED Entered: 07/02/2024 1458 IMPRESSION: No acute cardiopulmonary disease. Impression By: Eva Crawford M.D. RADIOLOGY - XR FOOT 2 VIEWS RT 07/02 1615 Report Impression - Status: SIGNED Entered: 07/02/2024 1705 IMPRESSION: No acute bony abnormality of the right foot and no radiographic evidence of osteomyelitis. Impression By: Eva Crawford M.D. 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 Monophasic waveforms in the posterior tibial artery. Impression By: [email or web address] Adrian Cline M.D. NUCLEAR MEDICINE - PULM VENT PERF IMAG 07/02 1800 Report Impression - Status: SIGNED Entered: 07/02/20241914 IMPRESSION: Low probability of pulmonary embolism. Impression By: [email or web address] Adrian Bernard M.D. Free Text Obj Notes Free Text Obj Notes: General appearance: alert, awake, oriented Head/Eyes: atraumatic, clear cornea, EOMI, normocephalic, PERRLA ENT: normal ear left, normal ear right, normal nose Neck: full range of motion, non-tender, no JVD Cardiovascular: normal capillary refill, regular rate rhythm, normal heart sounds Respiratory: clear to auscultation, no distress, no tenderness Abdomen/GI: active bowel sounds, soft, non-tender Extremities: cool, RLE cold, erythema, nd gangrene Musculoskeletal: Moves all extremities Neuro/PALEOLOGY PROFESSOR: alert, oriented X 3, normal speech Skin: erythema, lesions Psychiatry: normal affect, normal mood Diagnosis, Assessment Plan Free Text DxA P Notes Free text DxA P notes: 83-year-old male patient with past medical history of diabetes mellitus, hypertension, dyslipidemia, PAD with chronic right foot ulcer, ND and status post CABG, admitted for # Ischemic limb, right lower extremity/severe PAD # Diabetic foot ulcer Ultrasound showed "Right lower extremity demonstrates occluded dorsalis pedis artery". Keep patient on tele- Patient is presently on heparin drip Patient is on statin and aspirin Edge Glue Machine Tender and gear tester consulted, appreciate input # Hyperkalemia Patient given cocktail including dextrose, insulin and calcium gluconate in ER on sodium polystyrene Patient is on sodium bicarbonate drip Nephrology input appreciated # Acute on chronic kidney disease Caution with nephrotoxic meds Nephrology is following Follow BMP in the a.m. # Diabetes mellitus Accu-Chek ACHS with sliding scale insulin Check hemoglobin A1c # Hypertension Continue necessary home medications # BNP elevation # Dyspnea with elevated D-dimer, rule out PE Chest x-ray without overt heart failure Continue heparin drip Pending VQ scan Echo and TSH pending # Atypical chest pain # History of ND status post CABG Trend troponin on pravastatin and aspirin and heparin drip. DVT prophylaxis with heparin Full code at 1304 Addendum 1: 03/05/25 1306 by Myke Woods MD Sepsis Patient is on antibiotic at 1306 RPT #: [id number] END OF REPORT [facility] 2024-07-03 12:44:00 [id number] [facility] [address] [place] [address] PATIENT NAME: NAVJOT DAS ADMIT DATE: 07/02/24 ACCOUNT NO: [id number] ROOM NO: [id number] AGE: 83 REPORT TYPE: eECHOCARDIOGRAM REPORT SEX: M ADMITTING PHYSICIAN: Eduardo Mishra MD ATTENDING PHYSICIAN: Eduadro Mishra MD *[facility]* [id number] [place] [id number] Transthoracic Echocardiogram Patient: Navjot Das Study Date: 07/03/2024 BP: 101 / 56 URN: [id number] Location: : 1940 Age: 83 Gender: M Height: 69 in / 175.3 cm Weight: 135.3 lb / 61.4 kg BMI/BSA: 20 kg/m 2 / 1.72 m 2 *Ordering Physician: * Susan Hernandez *Interpreting Physician: * Jabari Norman MD *Care Trainer: OLIVER Saunders Indications: CHF. Study data: Transthoracic echocardiogram. Procedure: A transthoracic echocardiogram was performed. Image quality was adequate. Intravenous contrast (agitated saline) was administered. Complete 2D, complete spectral Doppler, and color Doppler. Location: Bedside. Patient room number: OB-3. Heart rate: 95 bpm. Findings Left ventricle: The cavity size is normal. Wall thickness is normal. Systolic function is normal. The estimated ejection fraction is 55-60%. Wall motion is normal; there are no regional wall motion abnormalities. Grade III diastolic dysfunction. PATIENT NAME: NAVJOT DAS Right ventricle: The cavity size is normal. Systolic function is normal. Left atrium: The atrium is normal in size. Right atrium: The atrium is normal in size. Atrial septum: There is a possible patent foramen ovale versus atrial septal defect . Agitated saline contrast study shows a [id number] shunt. Aorta: Aortic root: The root is normal-sized. Aortic valve: The valve is trileaflet. The leaflets are moderately calcified. The findings are consistent with mild to moderate stenosis. There is moderate regurgitation. Mitral valve: The annulus is mildly calcified. The leaflets are mildly calcified. There is no evidence of stenosis. There is mild regurgitation. Tricuspid valve: The valve is structurally normal. There is trivial regurgitation. Pulmonic valve: Not well visualized. There is no regurgitation. Pericardium: There is no pericardial effusion. Systemic veins: Inferior vena cava: The IVC is not visualized. Measurements Left ventricle Value Ref RUPA, LAX 4.6 cm 4.2 - 5.8 ESD, LAX 3.1 cm 2.5 - 4.0 FS, LAX 32 % 25 - 43 IVS, ED 0.9 cm 0.6 - 1.0 PW, ED 0.9 cm 0.6 - 1.0 IVS/PW, ED 1.01 --------- EF 60 % 52 - 72 LVOT Value Ref Peak mickey, S 0.75 m/sec --------- Mean mickey, S 0.56 m/sec --------- VTI, S 14.0 cm --------- Peak grad, S 2 mm Hg --------- Mean grad, S 1 mm Hg --------- Aortic valve Value Ref Peak v, S 2.1 m/sec --------- Mean v, S 1.6 m/sec --------- VTI, S 32.7 cm --------- Mean grad, S 11 mm Hg --------- Peak grad, S 18.0 mm Hg --------- LVOT/AV, VTI ratio 0.43 --------- LVOT/AV, Vpeak ratio 0.35 --------- AR peak v 3.06 m/sec --------- AR decel 221.89 cm/s 2 --------- AR decel time 1378 ms --------- AR PHT 400 ms --------- AR peak grad 37 mm Hg --------- Mitral valve Value Ref Peak E 1.17 m/sec --------- PATIENT NAME: AMAURYNAVJOT Peak A 0.49 m/sec --------- Decel time 101 ms --------- PHT 23 ms --------- Peak grad, D 5.5 mm Hg --------- Peak E/A ratio 2.39 --------- MVA, PHT 9.7 cm 2 --------- Conclusions Summary: 1. Left ventricle: The cavity size is normal. Wall thickness is normal. Systolic function is normal. The estimated ejection fraction is 55-60%. Wall motion is normal; there are no regional wall motion abnormalities. Grade III diastolic dysfunction. 2. Atrial septum: There is a possible patent foramen ovale versus atrial septal defect . Agitated saline contrast study shows a [id number] shunt. 3. Aortic valve: The findings are consistent with mild to moderate stenosis. There is moderate regurgitation. 4. Mitral valve: The annulus is mildly calcified. The leaflets are mildly calcified. Electronically signed by Jabari Norman MD 07/03/2024 12:44 at 1244 PATIENT NAME: NAVJOT DAS [facility] 2024-07-03 11:51:00 [facility] Nephrology Progress Note REPORT#:[id number] REPORT STATUS: Signed REPORT INITIALIZATION DATE:07/03/24 TIME:1151 PATIENT: NAVJOT DAS UNIT #: [id number] ROOM/BED: [place] [address] : 38 AGE: 83 SEX: M ATTEND: Eduardo Mishra MD ADM AUTHOR: Gatito Avila MD REPT SERVICE DT/TIME: 07/03/24 1151 * ALL edits or amendments must be made on the electronic/computer document * Subjective HPI: 83 yo male with history of HTN, DM, CAD, s/p CABG, CKD, indwelling schreiber catheter, admitted with weakness. Patient found to have hyponatremia, hyperkalemia, cori. Labs reviewed. Renal is consulted for CORI, Comments: Denies sob. Review of Systems Free Text ROS Notes Free Text ROS Notes: 10 points ros performed and documented in subjective, otherwise negative Objective General VS/I O: Vital Signs: Date Time Temp Pulse Resp B/P B/P Pulse O2 O2 Flow FiO2 Mean Ox Delivery Rate 03 1215 36.4 115 15 89/60 69.8 95 Room air 07/03 0809 36.5 103 14 120/69 85.8 97 Room air 07/03 0323 36.9 112 18 101/56 71.2 97 Room air / 2253 36.7 108 18 137/70 92.1 98 Room air 03/ 2001 36.7 112 18 109/38 61.7 98 Room air 03/ 1521 36.7 99 18 110/80 99 Room air 24 hour I O ending at 0700: 07/03 0700 07/02 1900 Intake Total 1220.00 Output Total 1000 Balance 220.00 Intake, IV 1070.00 Intake, Oral 150 Number 2 Bowel Movements Number Voids 1 Output, Urine 1000 Patient 61.364 kg Weight Weight Stated/Reported Measurement Method Medications Active Meds + DC'd Last 24 Hrs Pravastatin Sodium (PRAVACHOL) 40 MG DAILY 1700 PO Insulin Glargine (Lantus/Semglee) 5 UNIT BID SUBQ Ceftriaxone Sodium (ROCEPHIN) 1,000 MG Q24H IV Sterile Water (WATER FOR INJECTION) 10 ML Aspirin (ECOTRIN) 81 MG DAILY PO Insulin Human Lispro (Admelog) ASDIRECTED AC HS SUBQ Sodium Polystyrene Sulfonate (KAYEXELATE) 15 GM ONCE PO (DC) Dextrose/Water (DEXTROSE 10% IN WATER 250 ML) 125 ML ASDIR PRN IV Dextrose/Water (DEXTROSE 10% IN WATER 250 ML) 250 ML ASDIR PRN IV Glucagon (GLUCAGON) 1 MG ASDIR PRN IM Melatonin (Melatonin) 5 MG BEDTIME PRN PRN PO Ondansetron HCl (ZOFRAN) 4 MG Q4H PRN PRN IV Furosemide (LASIX 20MG INJ) 20 MG Q12HR IV Sodium Polystyrene Sulfonate (KAYEXELATE) 30 GM NOW ONE PO (DC) Lactulose (LACTULOSE) 20 GM Sodium Bicarbonate (SODIUM BICARBONATE) 150 MEQ X1ED STA IV (DC) Dextrose/Water (Dextrose 5% Water) 1,000 ML Heparin Sodium (Porcine) (HEPARIN SODIUM) ENTER DOSE ASDIR PRN IV Heparin Sodium/Dextrose (HEPARIN 25,000 UNITS/250ML) 250 ML ASDIR IV ( CKD) Hydromorphone HCl (DILAUDID) 0.5 MG Q6H PRN PRN IV Perflutren Lipid Microsphere (DEFINITY) 2 ML ONCE PRN IV (CKD) Sodium Polystyrene Sulfonate (KAYEXELATE) 30 GM ONCE ONE PO (DC) Albuterol Sulfate (PROVENTIL) 7.5 MG RTONCE ONE NEB (DC) Calcium Gluconate/Sodium Chloride (Calcium Gluconate 1GM/100ML) 100 ML ONCE ONE IV (DC) Dextrose/Water (Dextrose 50% W SYRINGE) 50 ML ONCE ONE IV (DC) Furosemide (LASIX) 60 MG ONCE ONE IV (DC) Insulin Human Regular (HumuLIN R VIAL) 10 UNIT ONCE ONE IV (DC) Sodium Zirconium Cyclosilicate (Lokelma) 10 GM ONCE ONE PO (DC) Sodium Bicarbonate (SODIUM BICARBONATE) 100 MEQ X1ED STA IV (DC) Sodium Chloride (0.9% Sodium Chloride) 1,000 ML .[id number] IV Vancomycin HCl (Vancomycin HCl) 1,500 MG X1ED STA IV (DC) Sodium Chloride (0.9% Sodium Chloride) 250 ML Azithromycin (ZITHROMAX) 500 MG X1ED STA IV (DC) Sodium Chloride (0.9% Sodium Chloride) 250 ML Ceftriaxone Sodium (ROCEPHIN) 1,000 MG X1ED STA IV (DC) Sterile Water (WATER FOR INJECTION) 10 ML Sodium Chloride (0.9% Sodium Chloride) 250 ML X1ED STA IV (DC) Fentanyl Citrate (SUBLIMAZE) 50 MCG X1ED STA IV (DC) Ondansetron HCl (ZOFRAN) 4 MG X1ED STA IV (DC) Aspirin (ASPIRIN CHEWABLE) 324 MG X1ED STA PO (DC) Physical Exam General appearance: awake Head/eyes: normocephalic ENT: normal nose Neck: no JVD (a) C-Spine clearance: no midline tenderness Cardiovascular: no murmur Respiratory: no distress Abdomen: non-tender, soft Genitourinary: no bladder distention Extremities: no edema Musculoskeletal: no tendereness Neuro/PALEOLOGY PROFESSOR: alert, oriented X 3 Results Findings/Data: Laboratory Tests 07/02 1554 Blood Gas Puncture Site (DESCRIPTION Site) Other VBG pH (7.26 - 7.43 pH units) 7.24 L VBG pCO2 (33 - 58 mmHg) 26 L VBG pO2 (80 - 100 mmHg) 32 L VBG HCO3 (22.0 - 26.0 mmol/L) 11.1 L VBG O2 Sat (Calc) (72 - 77 % (calc)) 52 L VBG Base Excess (-2.0 - 2.0 mmol/L) -14.5 L O2 Delivery Device (Descript) RA FiO2 (21 - 100 %) 21 Laboratory Tests 07/03 07/03 07/03 07/03 07/03 0808 0426 0426 0426 0403 Chemistry Sodium (136 - 145 mmol/L) 131 L Potassium (3.4 - 5.0 mmol/L) 5.9 *H Chloride (98 - 107 mmol/L) 98 Carbon Dioxide (21 - 32 mmol/L) 23 Anion Gap (4 - 15 GAP calc) 10 BUN (7 - 18 MG/DL) 85 H Creatinine (0.6 - 1.0 MG/DL) 2.1 H Glomerular Filtr Rate (>60 estGFR) 30 L Glucose (70 - 110 MG/DL) 284 H POC Glucose (70 - 110 mg/dL) 237 H Hemoglobin A1c (4.8 - 6.0 % A1C) 8.2 H Estim Average Glucose (MG/DLest) 189 Uric Acid (3.5 - 7.2 MG/DL) 6.1 Calcium (8.5 - 10.1 MG/DL) 8.8 Total Bilirubin (0.0 - 1.0 MG/DL) 0.4 AST (15 - 37 Unit/L) 29 ALT (30 - 65 Unit/L) 22 L Total Alk Phosphatase (50 - 136 Unit/L) 133 Total Creatine Kinase (21 - 215 Unit/L) 182 Troponin I High Sens (0 - 78 ng/L) 38.3 Total Protein (6.4 - 8.2 G/DL) 6.9 Albumin (3.4 - 5.0 G/DL) 2.8 L Globulin (GM/dL) 4.1 Albumin/Globulin Ratio (1.2 - 2.2 RATIO) 0.7 L Triglycerides (0 - 150 MG/DL) 64 Cholesterol (133 - 200 MG/DL) 110 L LDL Cholesterol Measurd (0 - 129 MG/DL) 63 Non-HDL Cholesterol (<130 mg/dL) 70 HDL Cholesterol (60 MG/DL) 40 L LDL/HDL Ratio (1.48 - 3.22 Avg Ratio) 1.57 Cholesterol/HDL Ratio (0 RATIO) 2.75 TSH (0.34 - 4.82 mcIU/ML) 1.59 07/03 Chemistry Sodium (136 - 145 mmol/L) 133 L Potassium (3.4 - 5.0 mmol/L) 5.6 H 5.4 H Chloride (98 - 107 mmol/L) 101 Carbon Dioxide (21 - 32 mmol/L) 19 L Anion Gap (4 - 15 GAP calc) 13 BUN (7 - 18 MG/DL) 88 H Creatinine (0.6 - 1.0 MG/DL) 2.2 H Glomerular Filtr Rate (>60 estGFR) 29 L Glucose (70 - 110 MG/DL) 144 H POC Glucose (70 - 110 mg/dL) 280 H Lactic Acid (0.4 - 1.9 mmol/L) 1.9 Calcium (8.5 - 10.1 MG/DL) 9.2 Troponin I High Sens (0 - 78 ng/L) 24.1 07/02 07/02 07/02 07/02 1600 1557 1347 1347 Chemistry Sodium (136 - 145 mmol/L) 128 L Potassium (3.4 - 5.0 mmol/L) 6.7 *H TNP Chloride (98 - 107 mmol/L) 99 Carbon Dioxide (21 - 32 mmol/L) 15 L Anion Gap (4 - 15 GAP calc) 14 BUN (7 - 18 MG/DL) 89 H Creatinine (0.6 - 1.0 MG/DL) 2.2 H Glomerular Filtr Rate (>60 estGFR) 29 L Glucose (70 - 110 MG/DL) 173 H Lactic Acid (0.4 - 1.9 mmol/L) 1.3 Calcium (8.5 - 10.1 MG/DL) 9.4 Troponin I High Sens (0 - 78 ng/L) 20.5 NT-Pro-B Natriuret Pep (0 - 100 PG/ML) 854 H Laboratory Tests 07/03 134 Coagulation INR (0.8 - 1.2 INR Unit) 1.04 PTT ([place]) (26 - 35 SECONDS) 51.8 H 24.0 L PT Patient/Control Mix (9.3 - 12.9 SECONDS) 11.6 D-Dimer (215 - 500 ng/mLFEU) 937 *H Laboratory Tests 07/03 1347 Hematology WBC (3.5 - 11.0 K/mm3) 8.1 8.8 12.8 H RBC (4.70 - 6.10 M/mm3) 3.19 L 3.14 L 3.79 L Hgb (12.3 - 15.9 G/DL) 9.9 L 9.8 L 12.0 L Hct (35.8 - 46.7 %) 29.9 L 30.0 L 36.8 MCV (86.3 - 98.9 Fl) 93.7 95.5 97.1 MCH (28.9 - 34.4 pg) 31.0 31.2 31.7 MCHC (32.1 - 34.5 G/DL) 33.1 32.7 32.6 RDW (11.5 - 14.5 SD) 14.3 14.2 14.3 Plt Count (150 - 450 K/mm3) 255 230 348 MPV (7.0 - 9.6 fL) 9.40 9.00 8.70 Neut % (Auto) (40 - 76 %) 78.0 H 75.6 Lymph % (Auto) (20.5 - 51.1 %) 14.4 L 15.0 L [place] % (Auto) (1.7 - 9.3 %) 6.8 8.4 Eos % (Auto) (0.0 - 6.0 %) 0.2 0.5 Baso % (Auto) (0.0 - 2.0 %) 0.2 0.3 Neut # (Auto) (1.8 - 7.6 K/mm3) 6.3 6.7 Lymph # (Auto) (0.6 - 3.0 K/mm3) 1.2 1.3 [place] # (Auto) (0.2 - 1.5 K/mm3) 0.6 0.7 Eos # (Auto) (0.0 - 0.4 K/mm3) 0.0 0.0 Baso # (Auto) (0.0 - 0.2 K/mm3) 0.0 0.0 Abs Immat Gran (auto) (0.00 - 0.03 x10 3/uL) 0.03 0.02 Add Manual Diff (CRITERIA DIFF/SCN) NO Immature Gran % (0.0 - 5.0 %) 0.4 0.2 Nucleated RBC % (0.0 - 1.0 /100WBC%) 0.0 0.0 Laboratory Tests 07/02 1348 Serology SARS-CoV-2 Ag (Rapid) (Negative) NEGATIVE Laboratory Tests 07/02 1557 Toxicology Acetone, Qual (NEG SCREEN) NEGATIVE Laboratory Tests 07/03 0426 Urines Ur Random Creatinine (MG/DL) 27.1 U Random Total Protein (MG/DL) 49 Ur Random Sodium (() MEQ/L) 81 Ur Random Potassium (() MEQ/L) 19.7 Microbiology Date/Time Procedure - Status Source Growth 07/02 1348 Influenza Virus Type B Antigen - COMP NASAL 07/02 134 Influenza Virus Type A Antigen - COMP NASAL Radiology data: Recent Impressions: RADIOLOGY - XR FOOT 2 VIEWS RT 07/02 1615 Report Impression - Status: SIGNED Entered: 07/02/2024 1705 IMPRESSION: No acute bony abnormality of the right foot and no radiographic evidence of osteomyelitis. Impression By: Eva Crawford M.D. 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 Monophasic waveforms in the posterior tibial artery. Impression By: Tammie Cline M.D. NUCLEAR MEDICINE - PULM VENT PERF IMAG 07/02 1800 Report Impression - Status: SIGNED Entered: 07/02/2024 1915 IMPRESSION: Low probability of pulmonary embolism. Impression By: Huong Bernard M.D. ULTRASOUND - US RETROPERITONEAL COM 07/03 0955 Report Impression - Status: SIGNED Entered: 07/03/2024 1435 IMPRESSION: 1. Findings suggestive of medical renal disease. No hydronephrosis. 2. Nonspecific diffuse circumferential urinary bladder wall thickening may represent chronic bladder outlet obstruction or cystitis. Impression By: Tammie Cline M.D. Diagnosis, Assessment Plan Free Text A P: 1. CORI on CKD 3. Etiology likley ATn. 2. Hypovolemia. 3. Hyponatremia. 4. Hyperkalemia. 5. DM. 6. HTN. 7. CAD. Recommendations 5: NS 75 ml/hour. Avoid NSAID. 3/4: Received medical treatment for potassium. Repeat BMP. Sodium bicarbonate drip 100 ml/hour. Avoid NSAID. Urine studies Renal US Thank you for the consultation, any question please call [phone] at 1446 RPT #: [id number] END OF REPORT [facility] 2024-07-03 10:50:00 [facility] ([facility]) Cardiology Consultation REPORT#:[id number] REPORT STATUS: Signed REPORT INITIALIZATION DATE:07/03/24 TIME:105 PATIENT: NAVJOT DAS UNIT #: [id number] ROOM/BED: [place] [address] : 38 AGE: 83 SEX: M ATTEND: Eduardo Mishra MD ADM AUTHOR: Modesto Turner DIRECTOR HARDWARE REPT SERVICE DT/TIME: 07/03/24 1050 * ALL edits or amendments must be made on the electronic/computer document * Modesto Turner 07/03/24 1050: History of Present Illness HPI HPI: 83-year-old male history of diabetes, CKD, PAD with chronic right foot wound, CABG/ND years ago, hypertension presents to the emergency room for chest pain for the past 3 days. Patient having dyspnea on exertion and is unable to walk due to shortness of breath. States that he fell 3 days ago unsure of LOC/head strike; patient does not use ACs and was never evaluated in the hospital after the fall. Patient has abrasions to his left arm and is also endorsing left rib pain. Patient is following up with vascular surgeon about outpatient procedure for right foot PAD/ulcer (4/fifth webspace). At this time patient endorsing severe right foot pain. No numbness or weakness to the right foot upon examination. Unable to palpate DP will order arterial ultrasound at this time. Patient found to have a leukocytosis, elevated D-dimer, metabolic acidosis without a gap. VQ scan ordered at this time, secondary sepsis protocol initiated, acetone level and VBG ordered as well. Patient's potassium was hemolyzed therefore repeat ordered. Patient vbg with pH of 7.24 and a bicarb of 11 CO2 of 26. Sodium bicarb bolus ordered at this time while we wait for lactic acid level, acetone level, repeat BMP, and potassium level. cardiology consulted for PAD with active wound to right foot History - Adult longitudinal Past medical history: Reports: Diabetes mellitus, Hypertension. Past surgical history: Reports: CABG. Family history: Reports: Hypertension. Alcohol use: Denies EtOH use Drug use: Denies recreational drugs Smoking status for patients 13 years old or older: Never Smoker Allergies: Coded Allergies: codeine (ITCHING 07/02/24) Review of Systems Free Text ROS Notes Free Text ROS Notes: A 12 point review of system was conducted REVIEW OF SYSTEMS: CONST: Denies fever, body aches and chills. HENT: Denies neck pain/stiffness, headache, congestion, sore throat, swelling. EYES: Denies vision changes. RESP: Denies cough/hemoptysis and shortness of breath. CV: Denies chest pain reports having heart burn when eats or drinks. negative for palpitations. ABD: Denies abdominal pain, nausea, vomiting. MUSC: Denies muscle aches, edema. SKIN: Denies rash, lesions/sores. reports having right toes unhealed wound and right foot pain NEURO: Denies headache, dizziness, weakness. Objective General VS/I O: Vital Signs: Date Time Temp Pulse Resp B/P B/P Pulse O2 O2 Flow FiO2 Mean Ox Delivery Rate 07/03 0809 36.5 103 14 120/69 85.8 97 Room air 07/03 0323 36.9 112 18 101/56 71.2 97 Room air / 2253 36.7 108 18 137/70 92.1 98 Room air 07/02 2001 36.7 112 18 109/38 61.7 98 Room air / 1521 36.7 99 18 110/80 99 Room air / 1334 36.7 106 18 108/74 99 Room air 24 hour I O ending at 0700: 07/03 0700 07/02 1900 Intake Total 1220.00 Output Total 1000 Balance 220.00 Intake, IV 1070.00 Intake, Oral 150 Number 2 Bowel Movements Number Voids 1 Output, Urine 1000 Patient 61.364 kg Weight Weight Stated/Reported Measurement Method PATIENT WEIGHT: Weight (lb): Weight (oz): Weight (kg): 61.364 Physical Exam General appearance: awake Free Text Obj Notes Free Text Obj Notes: Physical Exam: Gen: alert and oriented, in no acute distress, underweight HEENT: Normocephalic, atraumatic. Neck: JVP not raised, no carotid bruit Chest: Normal shape and contour Lungs: Equal air entry bilaterally, normal vesicular breathing CV: regular rate, normal S1 and S2, no murmur Abdomen: Soft, nondistended, non tender Peripheral pulses: 2+ dorsalis pedis pulses Extremities: no edema to extremities muscle atrophy present to bilateral lower legs, unhealed wounds to right foot Neuro: no gross motor or sensory deficits, tender right foot Reviewed vital signs, labs, and testing Diagnosis, Assessment Plan Free Text DxA P Notes Free Text DxA P Notes: 83-year-old male patient with past medical history of diabetes mellitus, hypertension, dyslipidemia, PAD with chronic right foot ulcer, ND and status post CABG, admitted for # Ischemic limb, right lower extremity/severe PAD abnormal US arterial - occluded dorsalis pedis artery and monphasic posterior tibial artery # Diabetic foot ulcer Routine vital signs Strict I's and O's Started on heparin drip, statin and aspirin # Hyperkalemia Patient given cocktail including dextrose, insulin and calcium gluconate in ER on sodium polystyrene Monitor on telemetry Nephrology consulted, appreciate input # Acute on chronic kidney disease Caution with nephrotoxic meds Cr 2.1 # Diabetes mellitus Accu-Chek ACHS with sliding scale insulin Check hemoglobin A1c # Hypertension Blood pressure currently controlled Resume home medication and adjust as needed # BNP elevation # Dyspnea with elevated D-dimer, rule out PE Chest x-ray without overt heart failure CT of the chest without contrast did not show any appreciable abnormality VQ scan pending. Unable to do a CT with contrast due to renal failure Patient on heparin drip due to ischemic foot Echo and TSH pending # Atypical chest pain # History of ND status post CABG Trend troponin Review home medications and start the appropriate ones. Currently we do not have the list family to bring. Started on pravastatin and aspirin and heparin drip Dispo Cr and potassium elevated. will await electrolytes to improve and if favorable may offer peripheral angiogram on monday. the peripheral angiogram was discussed with the patient. risks and benefits were discussed. Benefits: Relief of symptoms, improved right limb perfusion, potential reduction in ischemic events. Risks: Potential for ND, stroke, bleeding, contrast nephropathy, arrhythmias, peripheral vessel perforation, and in rare cases, . Femoral artery will be the access. Discussed post cath medications are possible should he be indicated for a stent and the need for adherance to anticoagulants. Sould the patient be offered he states he would agree. case discussed with Jabari Rubin 07/07/24 1110: Diagnosis, Assessment Plan Free Text DxA P Notes Free Text DxA P Notes: Patient examined at bedside. Discussed with DIRECTOR HARDWARE. Agree with above assessment and plan. Patient with right lower leg discomfort and an active wound. Will need a peripheral angiogram. Currently his creatinine is elevated and he has also has hyperkalemia. I believe his creatinine is close to his baseline however due to his hyperkalemia will await before proceeding with angiogram. Discussed peripheral angiogram with the patient who is agreeable. Continue on heparin drip for now. Echo has been ordered. Further recommendation based on the results of the angiogram. at 1519 at 1111 RPT #: [id number] END OF REPORT [facility] 2024-07-02 20:30:00 [facility] ([facility]) Nephrology Consultation Note REPORT#:[id number] REPORT STATUS: Signed REPORT INITIALIZATION DATE:07/02/24 TIME:2029 PATIENT: NAVJOT DAS UNIT #: [id number] ROOM/BED: [facility] : 38 AGE: 83 SEX: M ATTEND: Eduardo Mishra MD ADM AUTHOR: Gatito Avila MD REPT SERVICE DT/TIME: 07/02/242029 * ALL edits or amendments must be made on the electronic/computer document * History of Present Illness Reason for consult: hyponatremia. HPI: 83 yo male with history of HTN, DM, CAD, s/p CABG, CKD, indwelling schreiber catheter, admitted with weakness. Patient found to have hyponatremia, hyperkalemia, cori. Labs reviewed. Renal is consulted for CORI, History - Adult longitudinal Past medical history: Reports: Diabetes mellitus, Hypertension. Past surgical history: Reports: CABG. Family history: Reports: Hypertension. Alcohol use: Denies EtOH use Drug use: Denies recreational drugs Smoking status for patients 13 years old or older: Never Smoker Medications: Current Hospital Medications: Anti-Infective Agents Sig/Krysten Start time Last Medication Dose Route Stop Time Status Admin Ceftriaxone Sodium 1,000 MG Q24H 07/03 1000 AC (ROCEPHIN) IV 07/17 0959 Sterile Water 10 ML (WATER FOR INJECTION) Vancomycin HCl 1,500 MG X1ED STA 07/02 1452 DC 07/02 (Vancomycin HCl) IV 07/02 1751 1610 Sodium Chloride 250 ML (0.9% Sodium Chloride) Azithromycin 500 MG X1ED STA 07/02 1412 DC 07/02 (ZITHROMAX) IV 07/02 1511 1610 Sodium Chloride 250 ML (0.9% Sodium Chloride) Ceftriaxone Sodium 1,000 MG X1ED STA 07/02 1412 AC 07/02 (ROCEPHIN) IV 07/03 0011 1609 Sterile Water 10 ML (WATER FOR INJECTION) Autonomic Drugs Sig/Krysten Start time Last Medication Dose Route Stop Time Status Admin Albuterol Sulfate 7.5 MG RTONCE ONE 07/02 1645 DC 07/02 (PROVENTIL) NEB 07/02 1646 1650 Blood Formation,Coagulation Sig/Krysten Start time Last Medication Dose Route Stop Time Status Admin Heparin Sodium See Dose ASDIR PRN 07/02 1945 AC (Porcine) Insts (1) IV 07/16 194 (HEPARIN SODIUM) Heparin Sodium/ 250 ML ASDIR 07/02 1845 CKD Dextrose IV 07/16 1844 (HEPARIN 25,000 UNITS/250ML) Cardiovascular Drugs Sig/Krysten Start time Last Medication Dose Route Stop Time Status Admin Pravastatin Sodium 40 MG DAILY 1700 07/03 1700 AC (PRAVACHOL) PO 08/02 1659 Central Nervous System Agents Sig/Krysten Start time Last Medication Dose Route Stop Time Status Admin Aspirin 81 MG DAILY 07/03 0900 AC (ECOTRIN) PO 08/02 0859 Hydromorphone HCl 0.5 MG Q6H PRN PRN 07/02 1815 AC (DILAUDID) IV 07/05 1814 Fentanyl Citrate 50 MCG X1ED STA 07/02 1346 AC 07/02 (SUBLIMAZE) IV 07/02 2359 1617 Aspirin 324 MG X1ED STA 07/02 1335 AC 07/02 (ASPIRIN CHEWABLE) PO 07/02 2359 1618 Diagnostic Agents Sig/Krysten Start time Last Medication Dose Route Stop Time Status Admin Perflutren Lipid 2 ML ONCE PRN 07/02 1815 CKD Microsphere IV (DEFINITY) Electrolytic, Caloric, And Isaias Sig/Krysten Start time Last Medication Dose Route Stop Time Status Admin Furosemide 20 MG Q12HR 07/02 2200 AC (LASIX 20MG INJ) IV 08/01 2159 Sodium Polystyrene 30 GM ONCE ONE 07/02 1815 DC Sulfonate PO 07/02 1816 (KAYEXELATE) Calcium Gluconate/ 100 ML ONCE ONE 07/02 1645 DC 07/02 Sodium Chloride IV 07/02 1714 1714 (Calcium Gluconate 1GM/100ML) Dextrose/Water 50 ML ONCE ONE 07/02 1645 DC 07/02 (Dextrose 50% W IV 07/02 1646 1713 SYRINGE) Furosemide 60 MG ONCE ONE 07/02 1645 DC 07/02 (LASIX) IV 07/02 1646 1712 Sodium Zirconium 10 GM ONCE ONE 07/02 1645 DC 07/02 Cyclosilicate PO 07/02 1646 1712 (Lokelma) Sodium Bicarbonate 100 MEQ X1ED STA 07/02 1601 AC 07/02 (SODIUM BICARBONATE) IV 07/02 2359 1618 Sodium Chloride 1,000 ML .[id number] 07/02 1600 AC (0.9% Sodium IV 07/03 1456 Chloride) Sodium Chloride 250 ML X1ED STA 07/02 1412 AC 07/02 (0.9% Sodium IV 07/02 2359 1610 Chloride) Gastrointestinal Drugs Sig/Krysten Start time Last Medication Dose Route Stop Time Status Admin Ondansetron HCl 4 MG X1ED STA 07/02 1346 AC 07/02 (ZOFRAN) IV 07/02 2359 1618 Hormones And Synthetic Substit Sig/Krysten Start time Last Medication Dose Route Stop Time Status Admin Insulin Human Regular 10 UNIT ONCE ONE 07/02 1645 DC 07/02 (HumuLIN R VIAL) IV 07/02 1646 1712 Dose Instructions: (1)Heparin Sodium (Porcine) (HEPARIN SODIUM): ENTER DOSE Allergies: Coded Allergies: codeine (ITCHING 07/02/24) Review of Systems Free Text ROS Notes Free Text ROS Notes: 10 points ros performed and documented in subjective, otherwise negative. Objective General VS/I O: Vital Signs: Date Time Temp Pulse Resp B/P B/P Pulse O2 O2 Flow FiO2 Mean Ox Delivery Rate 07/02 2000 36.7 112 18 109/38 61.7 98 Room air 07/02 1521 36.7 99 18 110/80 99 Room air 07/02 1334 36.7 106 18 108/74 99 Room air PATIENT WEIGHT: Weight (lb): Weight (oz): Weight (kg): 61.364 Medications: Active Meds + DC'd Last 24 Hrs Pravastatin Sodium (PRAVACHOL) 40 MG DAILY 1700 PO Ceftriaxone Sodium (ROCEPHIN) 1,000 MG Q24H IV Sterile Water (WATER FOR INJECTION) 10 ML Aspirin (ECOTRIN) 81 MG DAILY PO Furosemide (LASIX 20MG INJ) 20 MG Q12HR IV Heparin Sodium (Porcine) (HEPARIN SODIUM) ENTER DOSE ASDIR PRN IV Heparin Sodium/Dextrose (HEPARIN 25,000 UNITS/250ML) 250 ML ASDIR IV ( CKD) Hydromorphone HCl (DILAUDID) 0.5 MG Q6H PRN PRN IV Perflutren Lipid Microsphere (DEFINITY) 2 ML ONCE PRN IV (CKD) Sodium Polystyrene Sulfonate (KAYEXELATE) 30 GM ONCE ONE PO (DC) Albuterol Sulfate (PROVENTIL) 7.5 MG RTONCE ONE NEB (DC) Calcium Gluconate/Sodium Chloride (Calcium Gluconate 1GM/100ML) 100 ML ONCE ONE IV (DC) Dextrose/Water (Dextrose 50% W SYRINGE) 50 ML ONCE ONE IV (DC) Furosemide (LASIX) 60 MG ONCE ONE IV (DC) Insulin Human Regular (HumuLIN R VIAL) 10 UNIT ONCE ONE IV (DC) Sodium Zirconium Cyclosilicate (Lokelma) 10 GM ONCE ONE PO (DC) Sodium Bicarbonate (SODIUM BICARBONATE) 100 MEQ X1ED STA IV Sodium Chloride (0.9% Sodium Chloride) 1,000 ML .[id number] IV Vancomycin HCl (Vancomycin HCl) 1,500 MG X1ED STA IV (DC) Sodium Chloride (0.9% Sodium Chloride) 250 ML Azithromycin (ZITHROMAX) 500 MG X1ED STA IV (DC) Sodium Chloride (0.9% Sodium Chloride) 250 ML Ceftriaxone Sodium (ROCEPHIN) 1,000 MG X1ED STA IV Sterile Water (WATER FOR INJECTION) 10 ML Sodium Chloride (0.9% Sodium Chloride) 250 ML X1ED STA IV Fentanyl Citrate (SUBLIMAZE) 50 MCG X1ED STA IV Ondansetron HCl (ZOFRAN) 4 MG X1ED STA IV Aspirin (ASPIRIN CHEWABLE) 324 MG X1ED STA PO Physical Exam General appearance: awake Head/eyes: normocephalic ENT: normal nose Neck: no JVD (a) C-Spine clearance: no midline tenderness Cardiovascular: no murmur Respiratory: no distress Abdomen: non-tender, soft Genitourinary: no bladder distention Extremities: no edema Musculoskeletal: no tendereness Neuro/PALEOLOGY PROFESSOR: alert, oriented X 3 Results Findings/Data: Laboratory Tests 07/02 1554 Blood Gas Puncture Site (DESCRIPTION Site) Other VBG pH (7.26 - 7.43 pH units) 7.24 L VBG pCO2 (33 - 58 mmHg) 26 L VBG pO2 (80 - 100 mmHg) 32 L VBG HCO3 (22.0 - 26.0 mmol/L) 11.1 L VBG O2 Sat (Calc) (72 - 77 % (calc)) 52 L VBG Base Excess (-2.0 - 2.0 mmol/L) -14.5 L O2 Delivery Device (Descript) RA FiO2 (21 - 100 %) 21 Laboratory Tests 07/02 07/02 07/02 07/02 1600 1557 1347 1347 Chemistry Sodium (136 - 145 mmol/L) 128 L Potassium (3.4 - 5.0 mmol/L) 6.7 *H TNP Chloride (98 - 107 mmol/L) 99 Carbon Dioxide (21 - 32 mmol/L) 15 L Anion Gap (4 - 15 GAP calc) 14 BUN (7 - 18 MG/DL) 89 H Creatinine (0.6 - 1.0 MG/DL) 2.2 H Glomerular Filtr Rate (>60 estGFR) 29 L Glucose (70 - 110 MG/DL) 173 H Lactic Acid (0.4 - 1.9 mmol/L) 1.3 Calcium (8.5 - 10.1 MG/DL) 9.4 Troponin I High Sens (0 - 78 ng/L) 20.5 NT-Pro-B Natriuret Pep (0 - 100 PG/ML) 854 H Laboratory Tests 07/02 1347 Coagulation D-Dimer (215 - 500 ng/mLFEU) 937 *H Laboratory Tests 07/02 1347 Hematology WBC (3.5 - 11.0 K/mm3) 12.8 H RBC (4.70 - 6.10 M/mm3) 3.79 L Hgb (12.3 - 15.9 G/DL) 12.0 L Hct (35.8 - 46.7 %) 36.8 MCV (86.3 - 98.9 Fl) 97.1 MCH (28.9 - 34.4 pg) 31.7 MCHC (32.1 - 34.5 G/DL) 32.6 RDW (11.5 - 14.5 SD) 14.3 Plt Count (150 - 450 K/mm3) 348 MPV (7.0 - 9.6 fL) 8.70 Laboratory Tests 07/02 1348 Serology SARS-CoV-2 Ag (Rapid) (Negative) NEGATIVE Laboratory Tests 07/02 1557 Toxicology Acetone, Qual (NEG SCREEN) NEGATIVE Microbiology Date/Time Procedure - Status Source Growth 07/02 1348 Influenza Virus Type B Antigen - COMP NASAL 07/02 1348 Influenza Virus Type A Antigen - COMP NASAL Radiology data: Recent Impressions: CAT SCAN - CT CHEST W/O CONTRAST 07/02 140 Report Impression - Status: SIGNED Entered: 07/02/2024 1419 IMPRESSION: No acute intrathoracic abnormality. Impression By: Eva Crawford M.D. CAT SCAN - CT HEAD/BRAIN W/O CONT 07/02 1406 Report Impression - Status: SIGNED Entered: 07/02/2024 1415 IMPRESSION: No acute intracranial abnormality. Impression By: Eva Crawford M.D. CAT SCAN - CT C-SPINE W/O CONT 07/02 1406 Report Impression - Status: SIGNED Entered: 07/02/2024 1417 IMPRESSION: No acute bony abnormality of the cervical spine. Impression By: Eva Crawford M.D. RADIOLOGY - XR FOREARM 2 VIEWS LT 07/02 1422 Report Impression - Status: SIGNED Entered: 07/02/2024 1457 IMPRESSION: No acute bony abnormality of the left forearm. Impression By: Eva Crawford M.D. RADIOLOGY - XR HUMERUS 2+V LT 07/02 1422 Report Impression - Status: SIGNED Entered: 07/02/2024 1456 IMPRESSION: No acute bony abnormality of the left humerus. Impression By: Eva Crawford M.D. RADIOLOGY - XR CHEST 1 V 07/02 1422 Report Impression - Status: SIGNED Entered: 07/02/2024 1458 IMPRESSION: No acute cardiopulmonary disease. Impression By: Eva Crawford M.D. RADIOLOGY - XR FOOT 2 VIEWS RT 07/02 1615 Report Impression - Status: SIGNED Entered: 07/02/2024 1705 IMPRESSION: No acute bony abnormality of the right foot and no radiographic evidence of osteomyelitis. Impression By: Eva Crawford M.D. 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 Monophasic waveforms in the posterior tibial artery. Impression By: [email or web address] Adrian Cline M.D. NUCLEAR MEDICINE - PUL VENT PERF IMAG 07/02 1800 Report Impression - Status: SIGNED Entered: 07/02/2024 1915 IMPRESSION: Low probability of pulmonary embolism. Impression By: Huong Bernard M.D. Diagnosis, Assessment Plan Free Text DxA P Notes Free Text DxA P Notes: 1. CORI on CKD 3. Etiology likley ATn. 2. Hypovolemia. 3. Hyponatremia. 4. Hyperkalemia. 5. DM. 6. HTN. 7. CAD. Recommendations Received medical treatment for potassium. Repeat BMP. Sodium bicarbonate drip 100 ml/hour. Avoid NSAID. Urine studies Renal US Thank you for the consultation, any question please call [phone] at 2037 RPT #: [id number] END OF REPORT [facility] 2024-07-02 18:18:00 [facility] ([facility]) History Physical - Adult REPORT#:[id number] REPORT STATUS: Signed REPORT INITIALIZATION DATE:07/02/24 TIME:1817 PATIENT: NAVJOT DAS UNIT #: [id number] ROOM/BED: [place] [id number] : 38 AGE: 83 SEX: M ATTEND: Eduardo Mishra MD ADM AUTHOR: Susan Hernandez MSN REPT SERVICE DT/TIME: 07/02/241817 * ALL edits or amendments must be made on the electronic/computer document * History of Present Illness HPI Chief complaint: Chest pain PCP: PCP: Leatha Mcdowell DO HPI: 83-year-old male patient with past medical history of diabetes mellitus, hypertension, dyslipidemia, PAD with chronic right foot ulcer, ND and status post CABG, presents to the emergency room with a complaint of shortness of breath and right lower extremity pain. According to patient, this shortness of breath started a few days ago and progressively got worse. The [id number] at bedside said the home health care that takes care of the diabetic foot ulcer came today and sent him to ER due to shortness of breath and increased pain to the right lower extremity. Evaluation in ER showed a potassium of 6.7, elevated BNP and creatinine of 2.2. We are admitting him for further evaluation and management of the above problems. Per patient and family, patient is supposed to see a vascular surgeon and gear tester for possible surgical intervention next week but they would rather have it done here in [place] hence the drop from the [place] to [place]. Dr. Norman field marketing manager and Dr. Sujit conley gear tester both consulted History Past medical history: Reports: Diabetes mellitus, Hypertension. Past surgical history: Reports: CABG. Family history: Reports: Hypertension. Alcohol use: Denies EtOH use Drug use: Denies recreational drugs Smoking status for patients 13 years old or older: Never Smoker Medication/Allergy-Vaccine Hx Medications: Current Hospital Medications: Anti-Infective Agents Sig/Krysten Start time Last Medication Dose Route Stop Time Status Admin Vancomycin HCl 1,500 MG X1ED STA 03/04 1452 DC 03 (Vancomycin HCl) IV 07/02 1751 1610 Sodium Chloride 250 ML (0.9% Sodium Chloride) Azithromycin 500 MG X1ED STA 07/02 1412 DC 07/02 (ZITHROMAX) IV 07/02 1511 1610 Sodium Chloride 250 ML (0.9% Sodium Chloride) Ceftriaxone Sodium 1,000 MG X1ED STA 07/02 1412 AC 03 (ROCEPHIN) IV 07/03 0011 1609 Sterile Water 10 ML (WATER FOR INJECTION) Autonomic Drugs Sig/Krysten Start time Last Medication Dose Route Stop Time Status Admin Albuterol Sulfate 7.5 MG RTONCE ONE 07/02 1645 DC 07/02 (PROVENTIL) NEB 07/02 1646 1650 Central Nervous System Agents Sig/Krysten Start time Last Medication Dose Route Stop Time Status Admin Fentanyl Citrate 50 MCG X1ED STA 07/02 1346 AC 07/02 (SUBLIMAZE) IV 07/02 2359 1617 Aspirin 324 MG X1ED STA 07/02 1335 AC 07/02 (ASPIRIN CHEWABLE) PO 07/02 2359 1618 Electrolytic, Caloric, And Isaias Sig/Krysten Start time Last Medication Dose Route Stop Time Status Admin Calcium Gluconate/ 100 ML ONCE ONE 07/02 1645 DC 07/02 Sodium Chloride IV 07/02 1714 1714 (Calcium Gluconate 1GM/100ML) Dextrose/Water 50 ML ONCE ONE 07/02 1645 DC 07/02 (Dextrose 50% W IV 07/02 1646 1713 SYRINGE) Furosemide 60 MG ONCE ONE 07/02 1645 DC 07/02 (LASIX) IV 07/02 1646 1712 Sodium Zirconium 10 GM ONCE ONE 07/02 1645 DC 07/02 Cyclosilicate PO 07/02 1646 1712 (Lokelma) Sodium Bicarbonate 100 MEQ X1ED STA 07/02 1601 AC 03 (SODIUM BICARBONATE) IV 07/02 2359 1618 Sodium Chloride 1,000 ML .[id number] 03 1600 AC (0.9% Sodium IV 07/03 1456 Chloride) Sodium Chloride 250 ML X1ED STA 07/02 1412 AC 07/02 (0.9% Sodium IV 07/02 2359 1610 Chloride) Gastrointestinal Drugs Sig/Krysten Start time Last Medication Dose Route Stop Time Status Admin Ondansetron HCl 4 MG X1ED STA 07/02 1346 AC 07/02 (ZOFRAN) IV 07/02 3479 1618 Hormones And Synthetic Substit Sig/Krysten Start time Last Medication Dose Route Stop Time Status Admin Insulin Human Regular 10 UNIT ONCE ONE 07/02 1645 DC 07/02 (HumuLIN R VIAL) IV 07/02 1646 1712 Allergies: Coded Allergies: codeine (ITCHING 07/02/24) Review of Systems Skin: Reports: swelling. Respiratory: Reports: WEST (dyspnea on exertion), SOB. All systems rev neg: except as marked Physical Exam VS/I O Vital Signs: Date Time Temp Pulse Resp B/P B/P Pulse O2 O2 Flow FiO2 Mean Ox Delivery Rate 07/02 1334 98.0 106 18 108/74 99 Room air PATIENT WEIGHT: Weight (lb): Weight (oz): Weight (kg): 61.364 General appearance: alert, awake, oriented Head/Eyes: atraumatic, clear cornea, EOMI, normocephalic, PERRLA ENT: normal ear left, normal ear right, normal nose Neck: full range of motion, non-tender, no JVD Cardiovascular: normal capillary refill, regular rate rhythm, normal heart sounds Respiratory: clear to auscultation, no distress, no tenderness Abdomen/GI: active bowel sounds, soft, non-tender Extremities: cool, RLE cold, erythema, nd gangrene Musculoskeletal: Moves all extremities Neuro/PALEOLOGY PROFESSOR: alert, oriented X 3, normal speech Skin: erythema, lesions Psychiatry: normal affect, normal mood Results Findings/Data: Laboratory Tests: 07/02 07/02 07/02 07/02 1600 1557 1554 1348 Blood Gas Puncture Site (DESCRIPTION Site) Other VBG pH (7.26 - 7.43 pH units) 7.24 L VBG pCO2 (33 - 58 mmHg) 26 L VBG pO2 (80 - 100 mmHg) 32 L VBG HCO3 (22.0 - 26.0 mmol/L) 11.1 L VBG O2 Sat (Calc) (72 - 77 % (calc)) 52 L VBG Base Excess (-2.0 - 2.0 mmol/L) -14.5 L O2 Delivery Device (Descript) RA FiO2 (21 - 100 %) 21 Chemistry Potassium (3.4 - 5.0 mmol/L) 6.7 *H Lactic Acid (0.4 - 1.9 mmol/L) 1.3 Serology SARS-CoV-2 Ag (Rapid) (Negative) NEGATIVE Toxicology Acetone, Qual (NEG SCREEN) NEGATIVE 07/02 07/02 1347 1347 Chemistry Sodium (136 - 145 mmol/L) 128 L Potassium (3.4 - 5.0 mmol/L) TNP Chloride (98 - 107 mmol/L) 99 Carbon Dioxide (21 - 32 mmol/L) 15 L Anion Gap (4 - 15 GAP calc) 14 BUN (7 - 18 MG/DL) 89 H Creatinine (0.6 - 1.0 MG/DL) 2.2 H Glomerular Filtr Rate (>60 estGFR) 29 L Glucose (70 - 110 MG/DL) 173 H Calcium (8.5 - 10.1 MG/DL) 9.4 Troponin I High Sens (0 - 78 ng/L) 20.5 NT-Pro-B Natriuret Pep (0 - 100 PG/ML) 854 H Coagulation D-Dimer (215 - 500 ng/mLFEU) 937 *H Hematology WBC (3.5 - 11.0 K/mm3) 12.8 H RBC (4.70 - 6.10 M/mm3) 3.79 L Hgb (12.3 - 15.9 G/DL) 12.0 L Hct (35.8 - 46.7 %) 36.8 MCV (86.3 - 98.9 Fl) 97.1 MCH (28.9 - 34.4 pg) 31.7 MCHC (32.1 - 34.5 G/DL) 32.6 RDW (11.5 - 14.5 SD) 14.3 Plt Count (150 - 450 K/mm3) 348 MPV (7.0 - 9.6 fL) 8.70 Radiology data: Recent Impressions: CAT SCAN - CT CHEST W/O CONTRAST 07/02 1405 Report Impression - Status: SIGNED Entered: 07/02/2024 1419 IMPRESSION: No acute intrathoracic abnormality. Impression By: Eva Crawford M.D. CAT SCAN - CT HEAD/BRAIN W/O CONT 07/02 1405 Report Impression - Status: SIGNED Entered: 07/02/2024 1415 IMPRESSION: No acute intracranial abnormality. Impression By: [email or web address] - Fabricio B Ty M.D. CAT SCAN - CT C-SPINE W/O CONT 07/02 1406 Report Impression - Status: SIGNED Entered: 07/02/2024 1417 IMPRESSION: No acute bony abnormality of the cervical spine. Impression By: Eva Crawford M.D. RADIOLOGY - XR FOREARM 2 VIEWS LT 07/02 1422 Report Impression - Status: SIGNED Entered: 07/02/2024 1457 IMPRESSION: No acute bony abnormality of the left forearm. Impression By: Eva Crawford M.D. RADIOLOGY - XR HUMERUS 2+V LT 07/02 1422 Report Impression - Status: SIGNED Entered: 07/02/2024 1456 IMPRESSION: No acute bony abnormality of the left humerus. Impression By: Eva Crawford M.D. RADIOLOGY - XR CHEST 1 V 07/02 1422 Report Impression - Status: SIGNED Entered: 07/02/2024 1458 IMPRESSION: No acute cardiopulmonary disease. Impression By: Eva Crawford M.D. RADIOLOGY - XR FOOT 2 VIEWS RT 07/02 1615 Report Impression - Status: SIGNED Entered: 07/02/2024 1705 IMPRESSION: No acute bony abnormality of the right foot and no radiographic evidence of osteomyelitis. Impression By: Eva Crawford M.D. ULTRASOUND - [facility] UNI RT 07/02 1640 Report Impression - Status: SIGNED Entered: 07/02/2024 1735 IMPRESSION: Right lower extremity demonstrates occluded dorsalis pedis artery. Monophasic waveforms in the posterior tibial artery. Impression By: [email or web address] Adrian Cline M.D. Diagnosis, Assessment Plan Problem List/A P: 1. CORI (acute kidney injury) 2. Chronic ulcer of right foot 3. Hyperkalemia Free Text DxA P Notes Free Text DxA P Notes: 83-year-old male patient with past medical history of diabetes mellitus, hypertension, dyslipidemia, PAD with chronic right foot ulcer, ND and status post CABG, admitted for # Ischemic limb, right lower extremity/severe PAD # Diabetic foot ulcer Ultrasound showed "Right lower extremity demonstrates occluded dorsalis pedis artery". Admit to telemetry, inpatient Routine vital signs Strict I's and O's Started on heparin drip, statin and aspirin Edge Glue Machine Tender and gear tester consulted, appreciate input # Hyperkalemia Patient given cocktail including dextrose, insulin and calcium gluconate in ER Started on sodium polystyrene Repeat potassium in 2 hours Monitor on telemetry Nephrology consulted, appreciate input # Acute on chronic kidney disease Caution with nephrotoxic meds Nephrology is consulted in ER, appreciate input Repeat BMP in the a.m. # Diabetes mellitus Accu-Chek ACHS with sliding scale insulin Check hemoglobin A1c # Hypertension Blood pressure currently controlled Resume home medication and adjust as needed # BNP elevation # Dyspnea with elevated D-dimer, rule out PE Chest x-ray without overt heart failure CT of the chest without contrast did not show any appreciable abnormality VQ scan pending. Unable to do a CT with contrast due to renal failure Patient on heparin drip due to ischemic foot Echo and TSH pending # Atypical chest pain # History of ND status post CABG Trend troponin Review home medications and start the appropriate ones. Currently we do not have the list family to bring. Started on pravastatin and aspirin and heparin drip. DVT prophylaxis with heparin Full code Plan of care discussed with patient and family and all questions addressed Next of kin: Spouse at 1845 at 1221 RPT #: [id number] END OF REPORT [facility] 2024-07-02 13:53:00 [facility] ([facility]) EMERGENCY PROVIDER REPORT REPORT#:[id number] REPORT STATUS: Signed DATE:07/02/24 TIME:1353 PATIENT: NAVJOT DAS UNIT #: [id number] ROOM/BED: [place] [id number] : 38 AGE: 83 SEX: M PCP PHYS: Leatha Mcdowell DO SERVICE AUTHOR: Jasiel Sullivan MD REP SRV REP SRV TM: 1356 * ALL edits or amendments must be made on the electronic/computer document * HPI-Chest Pain 40 and Over Free Text HPI Notes Free Text HPI Notes 83-year-old male history of diabetes, CKD, PAD with chronic right foot wound, CABG/ND years ago, hypertension presents to the emergency room for chest pain for the past 3 days. Patient having dyspnea on exertion and is unable to walk due to shortness of breath. States that he fell 3 days ago unsure of LOC/head strike; patient does not use ACs and was never evaluated in the hospital after the fall. Patient has abrasions to his left arm and is also endorsing left rib pain. Patient is following up with vascular surgeon about outpatient procedure for right foot PAD/ulcer (4/fifth webspace). At this time patient endorsing severe right foot pain. No numbness or weakness to the right foot upon examination. Unable to palpate DP will order arterial ultrasound at this time. Patient found to have a leukocytosis, elevated D-dimer, metabolic acidosis without a gap. VQ scan ordered at this time, secondary sepsis protocol initiated, acetone level and VBG ordered as well. Patient's potassium was hemolyzed therefore repeat ordered. Patient vbg with pH of 7.24 and a bicarb of 11 CO2 of 26. Sodium bicarb bolus ordered at this time while we wait for lactic acid level, acetone level, repeat BMP, and potassium level. General Initial Greet Date/Time 07/02/24 1335 Presentation Chief Complaint Chest pain Sudden in Onset? Yes )( Migration/Movement None Risk-Chest Pain 40 and Over Risk Stratification )( Coronary Artery Disease Risk factors reviewed )( Thoracic Aortic Dissection Risk factors reviewed )( Pulmonary Embolism Risk factors reviewed )( AMI-Aspirin Aspirin Last 24 Hrs 325 mg )( HEART for MACE )( HEART for MACE Response Value History Low index of suspicion 0 ECG Interpretation Normal ECG 0 Age Age 65 or over 2 Risk Factors for CAD 3+ CAD risk factors 2 Troponin < or = to NL troponin 0 Total 4 Review of Systems ROS Statements All systems rev neg except as marked. Focused Review of Systems Respiratory Reports: Dyspnea on exertion, Shortness of breath. Cardiovascular Reports: Chest pain. Musculoskeletal Reports: Extremity pain. Skin Reports: Erythema, Ulceration. Past Medical History - Adult Stated Complaint SOB, CHEST PAINS, HARD TOWALK Allergies Coded Allergies: codeine (ITCHING 07/02/24) Smoking status for patients 13 years old or older: Never Smoker Physical Exam Vital Signs Vital Signs First Documented: Result Date Time Pulse Ox 99 07/02 1334 B/P 108/74 07/02 1334 O2 Delivery Room air 07/02 1334 Temp 36.7 07/02 1334 Pulse 106 07/02 1334 Resp 18 07/02 1334 Last Documented: Result Date Time Pulse Ox 99 07/02 1521 B/P 110/80 07/02 1521 O2 Delivery Room air 07/02 1521 Temp 36.7 07/02 1521 Pulse 99 / 1521 Resp 18 07/02 1521 Review of Vital Signs Reviewed Focused PE General/Const General/Const Awake, Alert, No acute distress Resp/Chest Respiratory/Chest Atraumatic, Breath sounds NL, Breath sounds = bilat, No respiratory distress Cardiovascular Cardiovascular Regular rhythm, Heart sounds NL Heart Rate/Rhythm Tachycardia. Abdomen/GI Abdomen/GI Soft, Non-tender, No guarding, No rebound MS Lower Extrem Text/Dict Notes Right foot tenderness to palpation. Notable ulcer to the fourth webspace with notable erythema and dry gangrene. Neurologic Neurologic Oriented X3, Speech NL, No motor deficits, No sensory deficits Interpretation Diagnostics Lab Results Interpretation Results Laboratory Tests 07/02/24 1600: [Embedded Image Not Available] 07/02/24 1347: [Embedded Image Not Available] Potassium TNP Laboratory Tests: 07/02 07/02 07/02 07/02 07/02 1600 1557 1554 1348 1347 Blood Gas Puncture Site (DESCRIPTION Site) Other VBG pH (7.26 - 7.43 pH units) 7.24 L VBG pCO2 (33 - 58 mmHg) 26 L VBG pO2 (80 - 100 mmHg) 32 L VBG HCO3 (22.0 - 26.0 mmol/L) 11.1 L VBG O2 Sat (Calc) (72 - 77 % 52 L (calc)) VBG Base Excess (-2.0 - 2.0 -14.5 L mmol/L) O2 Delivery Device (Descript) RA FiO2 (21 - 100 %) 21 Chemistry Potassium (3.4 - 5.0 mmol/L) 6.7 *H Lactic Acid (0.4 - 1.9 mmol/L) 1.3 NT-Pro-B Natriuret Pep (0 - 100 854 H PG/ML) Serology SARS-CoV-2 Ag (Rapid) (Negative) NEGATIVE Toxicology Acetone, Qual (NEG SCREEN) NEGATIVE 07/02 1347 Chemistry Sodium (136 - 145 mmol/L) 128 L Potassium (3.4 - 5.0 mmol/L) TNP Chloride (98 - 107 mmol/L) 99 Carbon Dioxide (21 - 32 mmol/L) 15 L Anion Gap (4 - 15 GAP calc) 14 BUN (7 - 18 MG/DL) 89 H Creatinine (0.6 - 1.0 MG/DL) 2.2 H Glomerular Filtr Rate (>60 estGFR) 29 L Glucose (70 - 110 MG/DL) 173 H Calcium (8.5 - 10.1 MG/DL) 9.4 Troponin I High Sens (0 - 78 ng/L) 20.5 Coagulation D-Dimer (215 - 500 ng/mLFEU) 937 *H Hematology WBC (3.5 - 11.0 K/mm3) 12.8 H RBC (4.70 - 6.10 M/mm3) 3.79 L Hgb (12.3 - 15.9 G/DL) 12.0 L Hct (35.8 - 46.7 %) 36.8 MCV (86.3 - 98.9 Fl) 97.1 MCH (28.9 - 34.4 pg) 31.7 MCHC (32.1 - 34.5 G/DL) 32.6 RDW (11.5 - 14.5 SD) 14.3 Plt Count (150 - 450 K/mm3) 348 MPV (7.0 - 9.6 fL) 8.70 Microbiology: Date/Time Procedure - Status Source Growth 07/02 1600 MRSA Screen - ORD NASAL 07/02 1557 Blood Culture - RECD BLOOD 07/02 1557 Blood Culture - RECD BLOOD 07/02 1348 Influenza Virus Type B Antigen - COMP NASAL 07/02 1348 Influenza Virus Type A Antigen - COMP NASAL Recent Impressions: CAT SCAN - CT CHEST W/O CONTRAST 07/02 1406 Report Impression - Status: SIGNED Entered: 07/02/2024 1419 IMPRESSION: No acute intrathoracic abnormality. Impression By: Eva Crawford M.D. CAT SCAN - CT HEAD/BRAIN W/O CONT 07/02 1406 Report Impression - Status: SIGNED Entered: 07/02/2024 1415 IMPRESSION: No acute intracranial abnormality. Impression By: Eva Crawford M.D. CAT SCAN - CT C-SPINE W/O CONT 07/02 1406 Report Impression - Status: SIGNED Entered: 07/02/2024 1417 IMPRESSION: No acute bony abnormality of the cervical spine. Impression By: Eva Crawford M.D. RADIOLOGY - XR FOREARM 2 VIEWS LT 07/02 1422 Report Impression - Status: SIGNED Entered: 07/02/2024 1457 IMPRESSION: No acute bony abnormality of the left forearm. Impression By: Eva Crawford M.D. RADIOLOGY - XR HUMERUS 2+V LT 07/02 1422 Report Impression - Status: SIGNED Entered: 07/02/2024 1456 IMPRESSION: No acute bony abnormality of the left humerus. Impression By: Eva Crawford M.D. RADIOLOGY - XR CHEST 1 V 07/02 1422 Report Impression - Status: SIGNED Entered: 07/02/2024 1458 IMPRESSION: No acute cardiopulmonary disease. Impression By: Eva Crawford M.D. Lab Imaging Statement Laboratory radiographic studies reviewed and considered in the medical decision-making. Point of Care Testing Pulse Oximetry Pulse Ox % 99 On: Room air Interpretation Interpreted by ca, Pulse oximetry normal Time 1356 ECG #1 Interpretation Text/Dict Note EKG interpreted by sinus tachycardia heart rate 112 QRS [address] changes , interval changes, or t wave inversions. 07/02/24 1336 Re-Evaluation MDM Free Text MDM Notes Free Text MDM Notes Medical Decision Making Medical Problems Complexity *Problems Addressed: Chest pain, right foot pain *Acuity: Moderate (2 of 3) 1: Tests, Documents, Independent Historians (3) *Review of prior external notes(non-EM): No prior nonemergency medicine notes to review in our system *Unique Tests Ordered(List): CBC, CMP, EKG, troponin, D-dimer, lactic acid, blood cultures, VQ scan, right foot x-ray, chest x-ray, right lower extremity arterial ultrasound *Independent Review of Test Performed (Y/N):yes, Patient found to have a leukocytosis, elevated D-dimer, metabolic acidosis without a gap. VQ scan ordered at this time, secondary sepsis protocol initiated, acetone level and VBG ordered as well. Patient's potassium was hemolyzed therefore repeat ordered. Patient vbg with pH of 7.24 and a bicarb of 11 CO2 of 26. Sodium bicarb bolus ordered at this time while we wait for lactic acid level, acetone level, repeat BMP, and potassium level. Patient potassium level is 6.7, creatinine 2.2(patient states he has a history of CKD however does not know what his baseline creatinine level is); calcium gluconate ordered as well as potassium shifting medications. Repeat BMP still pending. Patient's lactic acid is 1.3. *Independent Historian(s) why: Patient, daughter 2: Independent Interpretation of Tests *I personally, independently reviewed and provided interpretation of all clinical DATA in this patient care including all relevant labs, imaging and ECGs , as available: Yes as stated above 3. Consultants: Dr. Self; starch cooker recommends 75 cc/h of NS for hyponatremia. 4. Treatments: IV fluids, Lokelma, Lasix, bicarb, calcium gluconate, albuterol, bicarb, vancomycin, Rocephin Social determinants of health were considered and impacted medical decision making and as a result part of patient's plan of care Clinical Impression(s) : Sepsis, PAD right foot, hyponatremia, hyperkalemia, cori on ckd, metabolic acidosis Disposition (Admit, Obs, Discharge, AMA): Admit ED Course Medication(s) Ordered Medication(s) Ordered: Anti-Infective Agents Sig/Krysten Start time Last Medication Dose Route Stop Time Status Admin Vancomycin HCl 1,500 MG X1ED STA 07/02 1452 DC 03/ Sodium Chloride 250 ML IV / 1751 1610 Azithromycin 500 MG X1ED STA / 1412 DC 03/04 Sodium Chloride 250 ML IV 03/04 1511 1610 Ceftriaxone Sodium 1,000 MG X1ED STA / 1412 AC 03/04 Sterile Water 10 ML IV 07/03 0011 1609 Central Nervous System Agents Sig/Krysten Start time Last Medication Dose Route Stop Time Status Admin Fentanyl Citrate 50 MCG X1ED STA 07/02 1346 AC 03/04 IV /04 2359 1617 Aspirin 324 MG X1ED STA 07/02 1335 AC 03/04 PO / 2359 1618 Electrolytic, Caloric, And Isaias Sig/Krysten Start time Last Medication Dose Route Stop Time Status Admin Sodium Bicarbonate 100 MEQ X1ED STA 0304 1601 AC / IV 07/02 2359 1618 Sodium Chloride 1,000 ML .[id number] 07/02 1600 AC IV 07/03 1456 Sodium Chloride 250 ML X1ED STA 07/02 1412 AC / IV 07/02 2359 1610 Gastrointestinal Drugs Sig/Krysten Start time Last Medication Dose Route Stop Time Status Admin Ondansetron HCl 4 MG X1ED STA 07/02 1346 AC / IV 07/02 235 1618 Differential Diagnosis )( Differential Diagnosis Acute coronary syndrome, Acute myocardial infarct, Anxiety disorder, Aortic dissection, Aortic stenosis, Asthma exacerbation, Bronchitis, Chest pain, Chest pain, acute, Cholecystitis, Cholelithiasis, Congestive heart failure, Contusion, Costochondritis, Dysrhythmia, Esophageal rupture, Esophagitis, Gastritis, GERD, Gun shot wound chest, Hiatal hernia, Hypertroph cardiomyopathy, Shala-Varma syndrome, Mitral stenosis, Mitral valve prolapse, Musculoskeletal pain, Myocardial infarction, Myocarditis, Peptic ulcer disease, Pericarditis, Pleurisy, Pneumomediastinum, Pneumonia, Pneumothorax, Pulmonary edema, Pulmonary embolism, Rib fracture, Stab wound chest, Stable angina, Unstable angina Patient Discharge Departure Vital Signs/Condition Vital Signs First Documented: Result Date Time Pulse Ox 99 07/02 1334 B/P 108/74 / 1334 O2 Delivery Room air 07/02 1334 Temp 36.7 07/02 1334 Pulse 106 03/ 1334 Resp 18 07/02 1334 Last Documented: Result Date Time Pulse Ox 99 07/02 1521 B/P 110/80 07/02 1521 O2 Delivery Room air 07/02 1521 Temp 36.7 07/02 1521 Pulse 99 /04 1521 Resp 18 07/02 1521 All vital signs available at the time of this entry have been reviewed. Condition Stable Clinical Impression Clinical Impression Primary Impression: Hyperkalemia Secondary Impressions: Acute kidney injury superimposed on CKD, Chest pain, Chronic ulcer of right foot, Fall, Hx of peripheral vascular disease, Hyponatremia, Metabolic acidosis, Sepsis Disposition Decision Hospitalize )( Accepts Hospitalization Yes )( Reason for Hospitalization SEPSIS, METABOLIC ACIDOSIS, HYPONATREMIA )( Accepted Time 1533 )( Accepted Date 07/02/24 Critical Care Time Spent (minutes): 75 Services Performed Patient management by me, Time spent at bedside, Reviewing test results, Reviewing imaging, Discussing patient care, Documentation in record, Time with fam/surrogate Separately billable procedures excluded from time. Patient was critically ill due to: Sepsis, hyponatremia, hyperkalemia, pad/chronic rt foot wound, metabolic acidosis My treatment and management were: Blood work, imaging studies, IV fluids, IV antibiotics, calcium gluc, potassium shifting medication, nephrology consultation, admission CC Note 1 Total critical care time 75 minutes. Total critical care time documented does not include time spent on separately billed procedures or the services of residents, students, nurses or physician assistants. I personally saw and examined the patient. I have reviewed all diagnostic interpretations and treatment plans as written. I was present for the mclain portions of any procedures performed and the inclusive time noted in any critical care statement. Critical care time includes patient management by me, time spent at the patients bedside, time to review lab and imaging results, discussing patient care, documentation in the medical record, and time spent with the family or caregiver. at [address] [facility] #: [phone] END OF REPORT [facility] 2024-06-28 10:38:03 Available refill at pharmacy, no additional refills authorized at this time. Outpatient Medication Detail Disp Refills Start End ELIDIA insulin degludec (TRESIBA FLEXTOUCH U-200) 200 unit/mL (3 mL) InPn 9 mL 1 04/19/2024 -- No Sig: inject 20 Units under the skin at bedtime. For Tresiba: take HALF dose if blood glucose 80 - 120 mg/dL, HOLD if less than 80. Sent to pharmacy as: insulin degludec (U-200) 200 unit/mL (3 mL) subcutaneous pen (Tresiba FlexTouch U-200) Class: eRX Route: Subcutaneous Order: [id number] Date/Time Signed: 04/19/2024 14:24 E-Prescribing Status: Receipt confirmed by pharmacy (04/19/2024 2:24 PM RAILROAD SIGNAL TECHNICIAN) ROAD SIGNAL TECHNICIAN Justine Kee RN [facility] 2024-06-28 10:36:11 Navjot Das is a 83 year old male Pt called requesting refill on rx insulin degludec (TRESIBA FLEXTOUCH U-200) 200 unit/mL (3 mL) InPn please advise. [facility] [place] - [address] [place] [address] Drive AT [place] [address] [facility] 2024-06-17 10:10:46 Left voicemail for patient to call back and discuss scheduling with [place] EY Lamar [facility] 2024-06-17 09:54:30 At this time we do not have any OB available, the patient is welcome to make a sooner appt in [place] if he wishes. EY Kee RN [facility] 2024-06-17 09:49:17 [facility]24-[facility] 08:44:20 Navjot Das is a 83 year old male Pt called to reschedule appt cancelled in june next avail was not till 10/08/2024 pt states he can not wait that long asking for something sooner is there any way pt can be OB in to schedule pt is also on the wait list please advise [phone] (home). EY Cam [facility] 2024-02-06 13:26:38 CLINICAL PHARMACY ENDOCRINOLOGY VISIT DATE: 02/06/24 Navjot Das is a 83 year old male referred to PharmD by Beronica Bueno NP for medication management of diabetes type II. At last visit, patient was instructed to: Start Ozempic 0.25 mg weekly for 4 weeks, then 0.5 mg weekly dose Continue Fiasp 20 units daily Continue Jardiance 25 mg daily Continue glimepiride 4 mg daily with breakfast PharmD attempted to contact patient to inquire whether he is still on Fiasp. Patient is on monotherapy with a short acting insulin (and no basal insulin on board). Considering patient's age and risk for hypoglycemia, would recommend to stop Fiasp and switch to long-acting insulin. PharmD will sign off due to multiple unsuccessful attempts to reach patient. Please re-consult if PharmD services are required in the future. Thank you. Mani Major PharmD PGY2 Rooming House Operator Tenterer Mani Major [facility] 2024-01-09 16:20:04 I was present with the resident at the time of this encounter on 01/09/24. Patient missed appointment with EILEEN Alicea on 01/05/2024. CREDIT CARD CLERK requested PharmD to call patient to adjust insulin since he missed his appointment. I discussed the case with Josselin Castillo PharmD (PGY1 Tenterer) and agree to sign off due to multiple unsuccessful attempts to reach the patient. Debby Peralta PharmD, [facility] Pharm[facility] Clinical Integration Project Manager- Endocrinology Debby Peralta [facility] 2024-01-09 15:15:36 CLINICAL PHARMACY ENDOCRINOLOGY VISIT DATE: 01/09/24 Navjot Das is a 83 year old male referred to PharmD by Beronica Bueno NP for medication management of diabetes type II. At last visit, patient was instructed to: Start Ozempic 0.25 mg weekly for 4 weeks, then 0.5 mg weekly dose Continue Fiasp 20 units daily Continue Jardiance 25 mg daily Continue glimepiride 4 mg daily with breakfast Recent Labs 11/15/23 0910 CHOL 126 LDL 64 HDL 27* TRIG 174* Ozempic was shipped out on 12/06/23 after delay with insurance company Patient is on monotherapy with a short acting insulin (and no basal insulin on board) Would recommend to switch to long acting insulin to optimize diabetes regimen (Lantus $11 for a 30 day supply) According to recent lipid panel, LDL is above goal of <55 mg/dL Would recommend to add Zetia 10 mg daily and will notify Beronica Bueno NP. 01/09/24: 1:36 PM: Unable to reach patient. Left voicemail with callback number. Will try again this afternoon 3:15 PM: Attempt #3 to reach patient. Unable to reach patient. Left voicemail with callback number. Will sign off due to multiple unsuccessful attempts to reach patient. Please re-consult if PharmD services are required in the future. Thank you. Josselin Castillo, PharmD PGY1 Tenterer Electronically signed by Josselin Castillo [facility] at 01/09/2024 3:44 PM CDT Josselin Castillo [facility] 2024-01-09 09:15:44 CLINICAL PHARMACY ENDOCRINOLOGY VISIT Navjot Das is a 83 year old male referred to PharmD by Beronica Bueno NP for medication management of diabetes type II. At last visit, patient was instructed to: Start Ozempic 0.25 mg weekly for 4 weeks, then 0.5 mg weekly dose Continue Fiasp 20 units daily Continue Jardiance 25 mg daily Continue glimepiride 4 mg daily with breakfast Recent Labs 11/15/23 0910 CHOL 126 LDL 64 HDL 27* TRIG 174* Ozempic was shipped out on 12/06/23 after delay with insurance company Patient is on monotherapy with a short acting insulin (and no basal insulin on board) Would recommend to switch to long acting insulin to optimize diabetes regimen (Lantus $11 for a 30 day supply) According to recent lipid panel, LDL is above goal of <55 mg/dL Would recommend to add Zetia 10 mg daily and will notify Beronica uBeno NP. 01/08/24: Unable to reach patient. Left voicemail with callback number. Will try again tomorrow. Josselin Castillo PharmD PGY1 Tenterer Electronically signed by Josselin Castillo [facility] at 01/09/2024 3:43 PM CDT [facility] 2024-01-03 14:40:31 I was present with the resident at the time of this encounter on 01/03/24. I discussed the case with Josselin Castillo PharmD (PGY1 Tenterer) and agree with the recommendations provided. PharmD will follow up with patient after Endocrinology visit. Debby Peralta PharmD, [facility] Pharmacy Clinical Integration Project Manager- Endocrinology Debby Peralta [facility] 2024-01-03 07:03:24 CLINICAL PHARMACY ENDOCRINOLOGY VISIT DATE: 01/03/24 Navjot Das is a 83 year old male referred to PharmD by Beronica Bueno NP for medication management of diabetes type II. At last visit, patient was instructed to: Start Ozempic 0.25 mg weekly for 4 weeks, then 0.5 mg weekly dose Continue Fiasp 20 units daily Continue Jardiance 25 mg daily Continue glimepiride 4 mg daily with breakfast Recent Labs 11/15/23 0910 CHOL 126 LDL 64 HDL 27* TRIG 174* Ozempic was shipped out on 12/06/23 after delay with insurance company Patient is on monotherapy with a short acting insulin (and no basal insulin on board) Would recommend to switch to long acting insulin to optimize diabetes regimen (Lantus $11 for a 30 day supply) According to recent lipid panel, LDL is above goal of <55 mg/dL Would recommend to add Zetia 10 mg daily and will notify Beronica Bueno NP. Since patient has appointment with Beronica Bueno NP on 01/05/24, will follow up afterwards Future Appointments Provider Department Dept Phone 01/05/2024 2:00 PM Beronica Bueno AGPCNP [facility] Endocrinology, [place] [facility] [phone] Josselin Castillo, PharmD PGY1 Tenterer Electronically signed by Josselin Castillo [facility] at 01/03/2024 1:54 PM CDT Josselin Castillo [facility] 2023-11-10 14:00:00 Addended by: BERONICA ROLAND on: 11/19/2023 07:43 PM Modules accepted: Orders [facility]
[2024-12-05] MEDS ORDERED: CEFAZOLIN SODIUM 1 GM/VIAL ONE (16:02)
[2024-12-05] MEDS ORDERED: NA CHLORIDE 0.9% 50 ML ONE (16:02)
--- NOTE | 2024-12-05 16:08 | ER ---
Nurse's Notes [facility] Name: Bon Das Age: 84 yrs Sex: Male : 1940 Arrival Date: 12/05/2024 Time: 14:52 Bed 5 Private MD: Diagnosis: Wound dehiscence right BKA Presentation: 12/05 15:40 Chief complaint: Patient states: s/p slip and fall today causing surgical incision from me1 right BKA to reopen. Sent by Dr Vera. Coronavirus screen: Vaccine status: Patient reports receiving the 2nd dose of the covid vaccine. Ebola Screen: No symptoms or risks identified at this time. Initial Sepsis Screen: Does the patient meet any 2 criteria? No. Patient's initial sepsis screen is negative. Does the patient have a suspected source of infection? No. Patient's initial sepsis screen is negative. Risk Assessment: Do you want to hurt yourself or someone else? Patient reports no desire to harm self or others. Onset of symptoms was December 05, 2024 at 12:00. 15:40 Method Of Arrival: Wheelchair nd1 15:40 Acuity: JOSE CRUZ 3 me1 Historical: - Allergies: 15:44 No Known Allergies; me1 - PMHx: 15:44 diabetes mellitus; Hypertensive disorder; Myocardial infarction; june 2023; me1 - PSHx: 15:44 cardiac stents; Coronary artery bypass graft; me1 - Immunization history:: Adult Immunizations up to date. - Infectious Disease History:: Denies. - Social history:: Smoking status: Patient denies any tobacco usage or history of. Screenin:56 [facility] ED Fall Risk Assessment (Adult) History of falling in the last 3 months, ar8 including since admission Yes- single mechanical fall (1 pt) Confusion or Disorientation No (0 pts) Intoxicated or Sedated No (0 pts) Impaired Gait Yes (1 pt) Mobility Assist Device Used Yes (1 pt) Altered Elimination Yes (1 pt) Score/Fall Risk Level 3 or more points = High Risk Oriented to surroundings, Maintained a safe environment, Educated pt \T\ family on fall prevention, incl call for assistance when getting out of bed. Abuse screen: Denies threats or abuse. Nutritional screening: No deficits noted. Tuberculosis screening: No symptoms or risk factors identified. Assessment: 15:56 General: Appears in no apparent distress. Behavior is calm, cooperative. Neuro: No ar8 deficits noted. Level of Consciousness is awake, alert, obeys commands, Oriented to person, place, time, situation. Cardiovascular: No deficits noted. Respiratory: No deficits noted. Airway is patent Respiratory effort is even, unlabored, Respiratory pattern is regular, symmetrical. Musculoskeletal: Amputation of R BKA. Dressing intact to R BKA. Bright red blood noted through Kerlix. Per pt and family, dressing was placed by home health nurse SOCIALLY RESPONSIBLE INVESTMENT ADVISER. 17:35 Reassessment: Patient appears in no apparent distress at this time. Patient and/or ph family updated on plan of care and expected duration. Pain level reassessed. Patient is alert, oriented x 3, equal unlabored respirations, skin warm/dry/pink. 19:05 Reassessment: assuming care at this time. km10 19:05 Reassessment: Patient appears in no apparent distress at this time. Patient and/or km10 family updated on plan of care and expected duration. Pain level reassessed. Patient is alert, oriented x 3, equal unlabored respirations, skin warm/dry/pink. Vital Signs: 15:40 BP 120 / 51; Pulse 65; Resp 17; Temp 98.2; Pulse Ox 100% ; Weight 58.06 kg; Height 5 me1 ft. 10 in. ; Pain 7/10; 16:01 BP 115 / 79; Pulse 64; Resp 15 S; Pulse Ox 100% on R/A; ar8 17:00 BP 121 / 84; Pulse 67; Resp 18 S; Pulse Ox 99% on R/A; ar8 17:35 BP 131 / 49; Pulse 62; Resp 18; Pulse Ox 100% on R/A; ph 18:52 BP 122 / 57; Pulse 67; Resp 18; Pulse Ox 100% on R/A; ph 19:32 BP 114 / 46; Pulse 67; Resp 16; Pulse Ox 100% on R/A; km10 15:40 Body Mass Index 18.37 (58.06 kg, 177.8 cm) me1 15:40 Pain Scale: Adult me1 Donalds Coma Score: 19:31 Eye Response: spontaneous(4). Motor Response: obeys commands(6). Verbal Response: km10 oriented(5). Total: 15. ED Course: 14:54 Patient arrived in ED. im 15:00 Miranda Peralta MD is Attending Physician. sp3 15:33 Jaren Delarosa, RN is Primary Nurse. ar8 15:44 Triage completed. me1 15:44 Arm band placed on Patient placed in an exam room. me1 15:48 No provider procedures requiring assistance completed. Inserted saline lock: 22 gauge ar8 in left antecubital area, using aseptic technique. Blood collected. Flushed with 10 mL NS. 15:56 Bed in low position. Call light in reach. Side rails up X2. Provided Education on: plan ar8 of care, diagnostics, and estimated wait time. . 16:07 Ana Lilia Wilkinson MD is Hospitalizing Provider. sp3 19:03 Primary Nurse role handed off by Jaren Delarosa RN km10 19:03 Evi Singleton, RN is Primary Nurse. km10 19:30 Client placed on continuous cardiac and pulse oximetry monitoring. NIBP monitoring km10 applied. Administered Medications: 16:05 Drug: ceFAZolin IVPB 1 grams IVPB once Route: IVPB; Site: left antecubital; db 16:37 Follow up: Response: No adverse reaction; IV Status: Completed infusion; IV Intake: ar8 100ml Medication: 15:56 VIS not applicable for this client. ar8 Intake: 16:37 IV: 100ml; Total: 100ml. ar8 Outcome: 16:07 Decision to Hospitalize by Provider. sp3 20:24 Admitted to Med/surg accompanied by tech, via stretcher, km10 20:24 Condition: stable 20:24 Discharge instructions given to patient, family, Instructed on the need for admit, Demonstrated understanding of instructions, 20:25 Patient left the ED. km10 Signatures: Adeola Davis, RN RN Miranda Peralta MD MD sp3 Bri Morejon, RN RN db Dominique Elam Dyan Hill RN RN nd1 Evi Singleton RN RN 10 Jaren Delarosa RN RN ar8
--- NOTE | 2024-12-05 16:08 | EDPHYS ---
Physician Documentation [facility] Name: Bon Das Age: 84 yrs Sex: Male : 1940 Arrival Date: 12/05/2024 Time: 14:52 Bed 5 Private MD: ED Physician Miranda Peralta HPI: 12/05 15:47 This 84 yrs old Male presents to ER via Wheelchair with complaints of Fall Injury, post sp3 op 3 weeks. 15:47 84-year-old male with diabetes and hypertension status post right below the knee sp3 amputation by Dr. Vera approximately 3 weeks ago presents today for wound dehiscence after fall. I discussed case with Dr. Vera who wants patient admitted for operative repair tomorrow. Patient with no other symptoms and no other injuries. ROS otherwise negative.. Historical: - Allergies: 15:44 No Known Allergies; me1 - PMHx: 15:44 diabetes mellitus; Hypertensive disorder; Myocardial infarction; june 2023; me1 - PSHx: 15:44 cardiac stents; Coronary artery bypass graft; me1 - Immunization history:: Adult Immunizations up to date. - Infectious Disease History:: Denies. - Social history:: Smoking status: Patient denies any tobacco usage or history of. ROS: 15:47 Constitutional: Negative for fever, chills, and weight loss, Eyes: Negative for injury, sp3 pain, redness, and discharge, Neck: Negative for injury, pain, and swelling, Cardiovascular: Negative for chest pain, palpitations, and edema, Respiratory: Negative for shortness of breath, cough, wheezing, and pleuritic chest pain, Abdomen/GI: Negative for abdominal pain, nausea, vomiting, diarrhea, and constipation, Back: Negative for injury and pain, Skin: Negative for injury, rash, and discoloration, Neuro: Negative for headache, weakness, numbness, tingling, and seizure, 15:47 All other systems are negative, Exam: 15:47 Constitutional: This is a well developed, well nourished patient who is awake, alert, sp3 and in no acute distress. Head/Face: Normocephalic, atraumatic. Neck: Trachea midline, no thyromegaly or masses palpated, and no cervical lymphadenopathy. Supple, full range of motion without nuchal rigidity, or vertebral point tenderness. No Meningismus. Chest/axilla: Normal chest wall appearance and motion. Nontender with no deformity. No lesions are appreciated. Cardiovascular: Regular rate and rhythm with a normal S1 and S2. No gallops, murmurs, or rubs. Normal PMI, no JVD. No pulse deficits. Respiratory: Lungs have equal breath sounds bilaterally, clear to auscultation and percussion. No rales, rhonchi or wheezes noted. No increased work of breathing, no retractions or nasal flaring. Abdomen/GI: Soft, non-tender, with normal bowel sounds. No distension or tympany. No guarding or rebound. No evidence of tenderness throughout. Back: No spinal tenderness. No costovertebral tenderness. Full range of motion. Neuro: Awake and alert, GCS 15, oriented to person, place, time, and situation. Cranial nerves II-XII grossly intact. Motor strength 5/5 in all extremities. Sensory grossly intact. Cerebellar exam normal. Normal gait. Psych: Awake, alert, with orientation to person, place and time. Behavior, mood, and affect are within normal limits. 15:47 Musculoskeletal/extremity: Right BKA wound dehiscence noted with mild bleeding. Bleeding is currently controlled. Vital signs are normal.. Vital Signs: 15:40 BP 120 / 51; Pulse 65; Resp 17; Temp 98.2; Pulse Ox 100% ; Weight 58.06 kg; Height 5 me1 ft. 10 in. ; Pain 7/10; 16:01 BP 115 / 79; Pulse 64; Resp 15 S; Pulse Ox 100% on R/A; ar8 17:00 BP 121 / 84; Pulse 67; Resp 18 S; Pulse Ox 99% on R/A; ar8 17:35 BP 131 / 49; Pulse 62; Resp 18; Pulse Ox 100% on R/A; ph 18:52 BP 122 / 57; Pulse 67; Resp 18; Pulse Ox 100% on R/A; ph 19:32 BP 114 / 46; Pulse 67; Resp 16; Pulse Ox 100% on R/A; km10 15:40 Body Mass Index 18.37 (58.06 kg, 177.8 cm) pr1 15:40 Pain Scale: Adult me1 [place] Coma Score: 19:31 Eye Response: spontaneous(4). Motor Response: obeys commands(6). Verbal Response: km10 oriented(5). Total: 15. MDM: 15:32 Medical Screening Exam initiated sp3 15:48 Data reviewed: vital signs, nurses notes, old medical records, lab test result(s). ED sp3 course: 84-year-old male with right BKA wound dehiscence to be admitted to hospitalist service for operative treatment by Dr. Vera tomorrow. I am not highly suspicious of fracture or infection. Routine labs pending and patient will be n.p.o. after midnight. Will give 1 dose of IV Ancef.. 12/05 15:39 Order name: Basic Metabolic Panel; Complete Time: 16:54 sp3 12/05 15:39 Order name: CBC with Diff; Complete Time: 16:54 sp3 12/05 15:39 Order name: PT-INR; Complete Time: 16:54 sp3 12/05 17:18 Order name: CBC with Automated Diff EDMS 12/05 17:18 Order name: CBC with Automated Diff EDMS 12/05 17:18 Order name: Comprehensive Metabolic Panel EDMS 12/05 17:18 Order name: Comprehensive Metabolic Panel EDMS 12/05 15:39 Order name: IV Saline Lock; Complete Time: 15:53 sp3 12/05 15:39 Order name: Labs collected and sent; Complete Time: 15:53 sp3 12/05 15:39 Order name: NPO: after midnight; Complete Time: 15:53 sp3 Administered Medications: 16:05 Drug: ceFAZolin IVPB 1 grams IVPB once Route: IVPB; Site: left antecubital; db 16:37 Follow up: Response: No adverse reaction; IV Status: Completed infusion; IV Intake: ar8 100ml Disposition Summary: 12/05/24 16:07 Hospitalization Ordered Notes: Hospitalization Status: Observation sp3 Provider: Ana Lilia Wilkinson sp3 Location: Telemetry/MedSurg (observation) sp3 Condition: Stable sp3 Problem: an acute exacerbation sp3 Symptoms: have worsened sp3 Bed/Room Type: Standard sp3 Room Assignment: 210(12/05/24 19:27) kb3 Diagnosis - Wound dehiscence right BKA sp3 Forms: - Medication Reconciliation Form sp3 - SBAR form sp3 - Leadership Thank You Letter sp3 Signatures: Dispatcher [employer] EDMS Peralta, Setul, MD MD sp3 Kaylee Perez RN RN kb3 Bri Morejon RN RN db Dyan Hill RN RN me1 Jaren Delarosa RN ar8 Corrections: (The following items were deleted from the chart) 16:07 sp3 kb3
[2024-12-05 16:19] LABS: Absolute Lymphocytes (CBC) 1.9 K/uL (0.7-4.9); Hematocrit 28.0 % (39.6-49.0); Hemoglobin 9.0 g/dL (13.6-17.9); MCH 25.7 pg (27.0-35.0); MCHC 32.1 g/dL (32.0-36.0); MCV 80.1 fL (80-100); MPV 7.5 fL (7.6-11.3); Nucleated RBC Absolute Count 0.0 (0-0); Nucleated Red Blood Cells % 0.0 % (0-0); RBC Red Blood Cell Count 3.49 M/uL (4.33-5.43); White Blood Count 10.30 thou/uL (4.3-10.9)
[2024-12-05 16:25] LABS: PT Prothrombin Time 14.1 SECONDS (10-13.0); Protime INR 1.26
[2024-12-05 16:53] LABS: Anion Gap 11.6 mEq/L (5.0-15.0); BUN Blood Urea Nitrogen 36.0 mg/dL (7-18); Glucose Level 212.0 mg/dL (74-106); Potassium 4.6 mEq/L (3.5-5.1)
[2024-12-05] MEDS ORDERED: ONDANSETRON 4 MG/2 ML VIAL IV PRN (17:15)
[2024-12-05] MEDS ORDERED: ACETAMINOPHEN 500 MG TAB PO PRN (17:15)
[2024-12-05] MEDS: NA CHLORIDE 0.9% 1,000 ML IV SCH (18:00)
[2024-12-05] MEDS ORDERED: NA CHLORIDE 0.9% 1,000 ML ONE (19:51)
[2024-12-05] MEDS: INSULIN GLARGINE 100 UNIT/ML SQ SCH (21:00)
[2024-12-05] MEDS ORDERED: VANCOMYCIN 1.25 GM in NA CHLORIDE 0.9% 250 ML IVPB SCH (21:00)
[2024-12-05] MEDS: ATORVASTATIN 80 MG TAB PO SCH (21:10)
[2024-12-05] MEDS: GABAPENTIN 100 MG CAP PO SCH (21:10)
[2024-12-05] MEDS: VANCOMYCIN 1 GM in NA CHLORIDE 0.9% 250 ML IVPB SCH (21:11)
[2024-12-05] MEDS: MORPHINE 2 MG/ML SYR IV PRN (21:11)
[2024-12-06] MEDS: NA CHLORIDE 0.9% 1,000 ML IV SCH (05:46)
[2024-12-06 06:15] LABS: Absolute Lymphocytes (CBC) 1.3 K/uL (0.7-4.9); Hematocrit 25.7 % (39.6-49.0); Hemoglobin 8.2 g/dL (13.6-17.9); MCH 25.9 pg (27.0-35.0); MCHC 32.0 g/dL (32.0-36.0); MCV 81.0 fL (80-100); MPV 7.7 fL (7.6-11.3); Nucleated RBC Absolute Count 0.0 (0-0); Nucleated Red Blood Cells % 0.0 % (0-0); RBC Red Blood Cell Count 3.17 M/uL (4.33-5.43); White Blood Count 5.40 thou/uL (4.3-10.9)
[2024-12-06 06:31] LABS: PT Prothrombin Time 14.6 SECONDS (10-13.0); PTT, Activated Partial Thromb 27.7 SECONDS (27.2-37.4); Protime INR 1.3
[2024-12-06 06:39] LABS: AST/SGOT 12 U/L (15-37); Albumin 1.8 g/dL (3.4-5.0); Albumin/Globulin Ratio 0.5 (1.1-1.8); Alkaline Phosphatase 114 U/L (45-117); Anion Gap 6.7 mEq/L (5.0-15.0); BUN Blood Urea Nitrogen 35 mg/dL (7-18); Globulin 3.6 g/dL (2.3-3.5); Glucose Level 296 mg/dL (74-106); Potassium 4.7 mEq/L (3.5-5.1)
[2024-12-06 06:46] LABS: ALT/SGPT < 14 U/L (16-61)
[2024-12-06] MEDS: EMPAGLIFLOZIN 25 MG PO SCH (08:02)
[2024-12-06] MEDS: CLOPIDOGREL 75 MG TABLET PO SCH (08:03)
[2024-12-06] MEDS: METOPROLOL XL 25 MG TAB PO SCH (08:03)
[2024-12-06] MEDS: PANTOPRAZOLE 40MG TABLET PO SCH (08:03)
--- NOTE | 2024-12-06 09:19 | P.PN ---
Date of Service: 12/06/24 Patient is an 84-year-old man known to me from prior interactions who had a below the knee amputation. He did well initially but recently was discharged from a [facility] facility after receiving rehabilitation. While at home he fell and onto his BKA stump ultimately splitting of the bone through the stump site associated with bleeding and pain. As such he came to the emergency room with above-stated issues. -I have discussed the risks benefits and alternatives of revision of his below the knee amputation including but not limited bleeding infection damage to tissues , blood clots heart attack stroke other unforeseen complications of the perioperative period, need further operative persistent patient displayed understanding of the above-stated plan and agrees to proceed as indicated.
[2024-12-06] MEDS: LIDOCAINE HCL/EPINEPHRINE 20 ML MDV ONE (12:17)
--- NOTE | 2024-12-06 12:21 | P.HP ---
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 He had recent BKA by Dr. Vera. He at home while trying to transfer from wheelchair tangled in the rug and fell down. The wound is dehiscent and needs surgery again for closure. He is stable. He had gone to [place] but they were not happy. I knew that without much help at home he will not be able to make it at home. Allergies No Known Allergies Allergy (Verified 10/25/24 03:26) Home medications list reviewed: Yes Home Medications: Atorvastatin Calcium [Lipitor] 80 mg PO BEDTIME 07/27/24 Empagliflozin [Jardiance] 25 mg PO DAILY 07/27/24 Ferrous Sulfate [Ferrous Sulfate*] 325 mg PO SEECOM 07/27/24 Finasteride 5 mg PO DAILY 07/27/24 Metoprolol Succinate [Toprol Xl] 25 mg PO DAILY 07/27/24 Clopidogrel Bisulfate [Plavix*] 75 mg PO DAILY 10/26/24 Gabapentin [Neurontin*] 100 mg PO BEDTIME cap 11/05/24 Glucerna Shake [Glucerna*] 237 ml PO BID can 11/05/24 Insulin Glargine,Hum.rec.anlog [Semglee] 20 unit SQ BID ml 11/05/24 Insulin Regular, Human [Novolin R] See Protocol SQ ACHS ml 11/05/24 Pantoprazole [Protonix Tab*] 40 mg PO BIDAC tab 11/05/24 Polyethyl Gly 3350 [Glycolax*] 17 gm PO DAILY PRN udbot 11/05/24 traMADol HCL [Ultram*] 50 mg PO Q6H PRN tab 11/05/24 - Past Medical/Surgical History Diabetic: Yes -: htn -: niddm -: bph -: high cholesterol -: chest pain -: heart blockage -: right kidney surg - repair -: CABG - Family History Father -: Cancer Mother -: Hypertension, Diabetes - Social History Smoking Status: Never smoker Alcohol use: Yes CD- Drugs: Yes Caffeine use: Yes Review of Systems 10-point ROS is otherwise unremarkable General: As per HPI Physical Examination - Vital Signs Temperature: 97.4 F Blood Pressure: 109/54 Pulse: 75 Respirations: 12 Pulse Ox (%): 99 - Physical Exam General: Mild distress HEENT: Atraumatic, PERRLA, Mucous membr. moist/pink, EOMI, Sclerae nonicteric Neck: Supple, 2+ carotid pulse no bruit, No LAD, Without JVD or thyroid abnormality Respiratory: Clear to auscultation bilaterally, Normal air movement Cardiovascular: Regular rate/rhythm, Normal S1 S2 Gastrointestinal: Normal bowel sounds, No tenderness Musculoskeletal: No tenderness, Other (right bka. presurgical to close the incision. ) Integumentary: No rashes Neurological: Normal gait, Normal speech, Normal strength at 5/5 x4 extr, Normal tone, Normal affect Lymphatics: No axilla or inguinal lymphadenopathy - Studies Laboratory Data (last 24 hrs) 12/05/24 12/05/24 12/05/24 15:53 15:53 15:53 WBC 10.30 Hgb 9.0 L Hct 28.0 L Plt Count 381 PT 14.1 H INR 1.26 Sodium 135 L Potassium 4.6 BUN 36 H Creatinine 1.40 H Glucose 212 H Assessment and Plan - Problems (Diagnosis) (1) Below-knee amputation of right lower extremity Current Visit: No Status: Chronic Plan: surery to close the open wound. No signs of infection per Dr. fragoso. May go home after surgery. 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 check ua for protein loss. Qualifiers: - Advance Directives Does patient have a Living Will: No Does patient have a Durable POA for Healthcare: No
[2024-12-06] MEDS ORDERED: ONDANSETRON 4 MG/2 ML VIAL ONE (12:22)
[2024-12-06] MEDS ORDERED: FENTANYL CITR 100 MCG/2 ML ONE (12:22)
[2024-12-06] MEDS ORDERED: LIDOCAINE 2% MPF 5 ML VIAL ONE (12:22)
[2024-12-06] MEDS: NA CHLORIDE 0.9% 1,000 ML ONE (12:33)
[2024-12-06] MEDS ORDERED: EPHEDRINE SULF 50 MG/ML VIAL ONE (12:51)
--- NOTE | 2024-12-06 13:34 | P.OP ---
Preoperative diagnosis: RIGHT BKA Traumatic Dehiscence Postoperative diagnosis: RIGHT BKA Traumatic Dehiscence Primary procedure: Debridement / Revision of RIGHT BKA Anesthesia: GETA Estimated blood loss: <10cc Specimen: Debridement Tissue Findings: RIGHT BKA Traumatic Dehiscence Complications: None Transferred to: Recovery Room Condition: Good
[2024-12-06] MEDS: HYDROMORPHONE HCL 0.5 MG/0.5 ML INJ ONE (14:00)
[2024-12-06 14:13] VITALS: O2SAT 99
--- NOTE | 2024-12-06 14:13 | OP ---
Date of Procedure: 12/06/2024 Surgeon: Brandon Vera MD, Preoperative Diagnosis: Right qxuti-cbc-zydv amputation traumatic dehiscence. Postoperative Diagnosis: Right gjwww-vyb-fpnj amputation traumatic dehiscence. Procedure Performed: Debridement/revision of right xpjvc-gtv-iihj amputation. Anesthesia: General endotracheal. Estimated Blood Loss: Less than 10 cc. Specimens: Debridement of tissue. Findings: Right BKA traumatic dehiscence with necrosis. Complications: None. Implants: Surgicel. Disposition: The patient was transferred to the recovery room in good condition. Procedure In Detail: After informed consent was obtained, the patient was brought to the operating r oom, prepped and draped in the usual sterile fashion. After adequate anesthesia was achieved, I beg an by removing all nonviable tissue around this traumatic dehiscence of the right yperp-jko-xoux ampu tation site using predominantly combination of sharp dissection with electrocautery. After all nonvi able tissue was swept back, I brought the gastrocnemius tendon connection back over the anterior surf juanita of the tibia which had become exposed through this process, but did not have any obvious injury t o it and no obvious infection at this area. It was partially reapproximated to allow for open draina ge should this be necessary. I had completed a pulse lavage just prior to reapproximation of the gas trocnemius tendon. I then irrigated the area. Hemostasis was achieved with a combination of suture ligation of small bleeding vessels as well as electrocautery. The area was copiously irrigated once again, pulse lavaged once again. The area remained clean and dry at this point. I then placed Surgi юлия into the surgical wound, and the wound was then wrapped with a sterile dressing. The patient kristina erated the procedure well without incident or complication and transferred to PACU in good condition. All counts were correct at the end of the case. TK/MODL Voice ID: [id number] Report ID: [id number]
[2024-12-06 20:52] LABS: Sqamous Epithelial None Seen /HPF (None Seen); Urine Crystals Unidentified Few /HPF (None Seen); Urine Micro Reflex YN NO BILL MICROSCOPIC; Urine WBC Clump Many /HPF (None Seen); Urine Yeast (Budding) Moderate /HPF (None Seen)
[2024-12-07 06:44] VITALS: BMI 20.7
[2024-12-07 08:16] VITALS: BP 129/61; TEMP 97.7
[2024-12-07] MEDS: INSULIN REGULAR (HUMAN) 100 UNIT/ML SQ SCH (08:23)
--- NOTE | 2024-12-07 13:05 | P.DS ---
Admission Date: 12/05/24 Discharge Date: 12/07/24 Disposition: DC HOME/HOME HEALTH CARE Reason for Admission: fallen and the amputation site opened up - Problems (1) Below-knee amputation of right lower extremity Status: Chronic Qualifiers: (2) Diabetic vasculopathy Status: Chronic (3) Acute on chronic renal insufficiency Status: Chronic (4) Protein calorie malnutrition Status: Chronic Qualifiers: Brief History of Present Illness: Navjot is a diabetic with pvd. He had recent BKA by Dr. Cruz. He at home while trying to transfer from wheelchair tangled in the rug and fell down. The wound is dehiscent and needs surgery again for closure. He is stable. He had gone to [place] but they were not happy. I knew that without much help at home he will not be able to make it at home. Hospital Course: NAVJOT IS A DIABETIC WITH PVD, MALNURITION, SP RECENT BKA HE FELL AT HOME WHEN HE GOT TANGLED A RUG. HIS WOUND DEHISED, DR. CRUZ DID THE DEBRIDEMENT, CLEANED AND LEFT IT OPENED. HE WILL FU. PATIENT IS STABLE TO [facility]. HE IS TO REMOVE ALL THE OBJECTS THAT CAN MAKE HI FALL AT HOME. Vital Signs/Physical Exam: Temp Pulse Resp BP Pulse Ox 97.7 F 76 20 129/61 99 12/07/24 08:00 12/07/24 08:24 12/07/24 08:00 12/07/24 08:24 12/07/24 08:00 Laboratory Data at Discharge: WBC 5.40 thou/uL (4.3-10.9) 12/06/24 05:56 Hgb 8.2 g/dL (13.6-17.9) L D 12/06/24 05:56 Hct 25.7 % (39.6-49.0) L 12/06/24 05:56 Plt Count 323 thou/uL (152-406) 12/06/24 05:56 PT 14.6 SECONDS (10-13.0) H 12/06/24 05:56 INR 1.30 12/06/24 05:56 APTT 27.7 SECONDS (27.2-37.4) 12/06/24 05:56 Sodium 136 mEq/L (136-145) 12/06/24 05:56 Potassium 4.7 mEq/L (3.5-5.1) 12/06/24 05:56 BUN 35 mg/dL (7-18) H 12/06/24 05:56 Creatinine 1.53 mg/dL (0.70-1.30) H 12/06/24 05:56 Glucose 296 mg/dL (74-106) H 12/06/24 05:56 Total Bilirubin 0.2 mg/dL (0.2-1.0) 12/06/24 05:56 AST 12 U/L (15-37) L 12/06/24 05:56 ALT < 14 U/L (16-61) L 12/06/24 05:56 Alkaline Phosphatase 114 U/L (45-117) 12/06/24 05:56 Home Medications: Atorvastatin Calcium [Lipitor] 80 mg PO BEDTIME 07/27/24 Empagliflozin [Jardiance] 25 mg PO DAILY 07/27/24 Ferrous Sulfate [Ferrous Sulfate*] 325 mg PO SEECOM 07/27/24 Finasteride 5 mg PO DAILY 07/27/24 Metoprolol Succinate [Toprol Xl] 25 mg PO DAILY 07/27/24 Clopidogrel Bisulfate [Plavix*] 75 mg PO DAILY 10/26/24 Gabapentin [Neurontin*] 100 mg PO BEDTIME cap 11/05/24 Glucerna Shake [Glucerna*] 237 ml PO BID can 11/05/24 Insulin Glargine,Hum.rec.anlog [Semglee] 20 unit SQ BID ml 11/05/24 Insulin Regular, Human [Novolin R] See Protocol SQ ACHS ml 11/05/24 Pantoprazole [Protonix Tab*] 40 mg PO BIDAC tab 11/05/24 Polyethyl Gly 3350 [Glycolax*] 17 gm PO DAILY PRN udbot 11/05/24 traMADol HCL [Ultram*] 50 mg PO Q6H PRN tab 11/05/24 Cefuroxime [Ceftin*] 250 mg PO BID #14 tab 12/07/24 New Medications: Cefuroxime [Ceftin*] 250 mg PO BID #14 tab Followup: Ajay Saldivar MD [Primary Care Provider] -
== END 2024-12-07 10:48 | disposition home health service (06) | DRG 464 ==
LOC: ER 14:52 → ERHOLD 17:15 → 2ND 20:19
PROVIDERS: ADMIT Hospitalist; ATTEND Internal Medicine
PROC: 0JBN0ZZ Excision of Right Lower Leg Subcutaneous Tissue and Fascia, Open Approach (ICD-10-PCS; principal; 2024-12-06 13:45)
DX: T87.81 Dehiscence of amputation stump (principal); E11.52 Type 2 diabetes mellitus with diabetic peripheral angiopathy with gangrene; E46 Unspecified protein-calorie malnutrition; Z68.1 Body mass index [BMI] 19.9 or less, adult; M31.8 Other specified necrotizing vasculopathies; I10 Essential (primary) hypertension; N28.9 Disorder of kidney and ureter, unspecified; E11.622 Type 2 diabetes mellitus with other skin ulcer; J44.9 Chronic obstructive pulmonary disease, unspecified; I25.2 Old myocardial infarction; Z79.4 Long term (current) use of insulin; Z95.1 Presence of aortocoronary bypass graft; Z95.5 Presence of coronary angioplasty implant and graft; Z79.84 Long term (current) use of oral hypoglycemic drugs; Z79.02 Long term (current) use of antithrombotics/antiplatelets; Z89.511 Acquired absence of right leg below knee; Z79.899 Other long term (current) drug therapy; W18.30XA Fall on same level, unspecified, initial encounter; Y93.89 Activity, other specified; Y92.019 Unspecified place in single-family (private) house as the place of occurrence of the external cause; Y99.9 Unspecified external cause status
CPT/HCPCS: 36415; 80048; 80053; 80202; 81001; 82947; 83036; 84145; 85025; 85610; 85730; 88304; 96365; 99285; J0690; J1100; J1171; J1815; J2003; J2270; J2405; J2704; J3010; J3370; J7030; J7050

== ENCOUNTER 2024-12-20 09:57 | Day surgery (SDC) | payer OTHER ==
[2024-12-19 14:54] LABS: Absolute Lymphocytes (CBC) 1.6 K/uL (0.7-4.9); Hematocrit 32.0 % (39.6-49.0); Hemoglobin 10.0 g/dL (13.6-17.9); MCH 24.8 pg (27.0-35.0); MCHC 31.3 g/dL (32.0-36.0); MCV 79.2 fL (80-100); MPV 7.8 fL (7.6-11.3); Nucleated RBC Absolute Count 0.0 (0-0); Nucleated Red Blood Cells % 0.0 % (0-0); RBC Red Blood Cell Count 4.05 M/uL (4.33-5.43); White Blood Count 8.10 thou/uL (4.3-10.9)
[2024-12-19 14:58] LABS: PT Prothrombin Time 13.8 SECONDS (10-13.0); PTT, Activated Partial Thromb 29.8 SECONDS (27.2-37.4); Protime INR 1.23
[2024-12-19 15:04] LABS: Anion Gap 8.6 mEq/L (5.0-15.0); BUN Blood Urea Nitrogen 35.0 mg/dL (7-18); Glucose Level 362.0 mg/dL (74-106); Potassium 4.6 mEq/L (3.5-5.1)
[2024-12-20] MEDS ORDERED: LIDOCAINE 1% MPF 5 ML VIAL ONE (10:16)
[2024-12-20] MEDS ORDERED: FENTANYL CITR 100 MCG/2 ML ONE (10:16)
[2024-12-20] MEDS: NA CHLORIDE 0.9% 1,000 ML ONE (10:44)
[2024-12-20] MEDS ORDERED: EPHEDRINE SULF 50 MG/ML VIAL ONE (11:26)
[2024-12-20] MEDS: CEFAZOLIN SODIUM 2 GM/VIAL ONE (11:30)
[2024-12-20] MEDS: LIDOCAINE HCL/EPINEPHRINE 20 ML MDV ONE (11:42)
[2024-12-20] MEDS: INSULIN REGULAR (HUMAN) 100 UNIT/ML ONE (11:49)
--- NOTE | 2024-12-20 12:03 | P.OP ---
Preoperative diagnosis: RIGHT BKA Stump Chronic Wound Postoperative diagnosis: RIGHT BKA Stump Chronic Wound Primary procedure: Debridement of RIGHT BKA Stump Chronic Wound Anesthesia: GETA + Local Estimated blood loss: <2cc Specimen: Debridement Tissue Findings: necrosis to BKA site Grade II - III Complications: None Transferred to: Recovery Room Condition: Good
[2024-12-20] MEDS: MORPHINE 2 MG/ML SYR ONE (12:28)
[2024-12-20] MEDS: HYDROMORPHONE HCL 1 MG/ML INJ ONE ×2 (12:38→12:43)
[2024-12-20] MEDS ORDERED: HYDROCODONE/APAP 5/325 MG TAB ONE ×2 (13:07)
[2024-12-20] MEDS: HYDROCODONE/APAP 5/325 MG TAB PO ONE (13:13)
--- NOTE | 2024-12-20 13:37 | OP ---
Date of Procedure: 12/20/2024 Surgeon: Brandon Vera MD, Brief History Of Present Illness: The patient is an 84-year-old male known to me from previous inter actions who has a BKA which healed well initially and then he went to a nursing facility and had sign ificant decompensation of his wound without significant wound care performed at that location. He ul timately had injury to the area which led to a breakdown and dehiscence of the wound. He has been ge tting debridements in the clinic with improvement. However, the debridements are quite painful and fransisca araiza requested specifically operative intervention to do a significant debridement without having signif icant pain, and as such, he was deemed appropriate for operative intervention on that occasion. Preoperative Diagnosis: Right irhps-hpy-aezx amputation, chronic wound. Postoperative Diagnosis: Right taivh-xvr-ionr amputation, chronic wound. Procedure Performed: Debridement of right qbuuv-yzz-ukbd amputation, chronic wound. Anesthesia: General endotracheal plus local. Estimated Blood Loss: Less than 2 cc. Specimen: Debridement of tissue. Findings: Necrosis to BKA site, grade 1 and 2, extending to muscle. Complications: None. Disposition: The patient was transferred to recovery room in good condition. Procedure In Detail: After informed consent was obtained, the patient was brought to the operating r oom, prepped and draped in the usual sterile fashion. After adequate anesthesia was achieved, I debr ided out all nonviable tissue from the BKA site as described using combination of sharp dissection wi th blunt dissection. Some tendinous tissue was removed in addition to some ischemic muscle, but the majority of the ischemia was related to area around the bone directly as if it had crush injury in ad dition to the tendons. However, the other tendinous connections and muscular elements were all intac t. These nonviable and questionable tissues were removed leaving only good viable tissue behind. Th e area was copiously irrigated. In addition, I used a pulse lavage to cleanse out the area thoroughl y. I then partially reapproximated 2 areas at the mid portion and the right lateral portion with sta ples interrupted, leaving 3 large openings to allow for packing of the wound. The wound was then pac ked with Vashe soaked one-half inch plain packing and then a sterile dressing was placed over top. T he patient tolerated the procedure well without incident or complication and transferred to PACU in g ood condition. All counts were correct at the end of the case. JAS/RADHA Voice ID: [id number] Report ID: [id number]
[2024-12-20 14:09] VITALS: BP 114/62; TEMP 98.1; O2SAT 100
== END 2024-12-20 14:00 | disposition home or self-care (01) ==
LOC: OR 09:57
PROVIDERS: ATTEND Surgery
PROC: 0KBS0ZZ Excision of Right Lower Leg Muscle, Open Approach (ICD-10-PCS; principal; 2024-12-20 11:15)
DX: L97.813 Non-pressure chronic ulcer of other part of right lower leg with necrosis of muscle (principal); T87.89 Other complications of amputation stump; I96 Gangrene, not elsewhere classified; Z89.511 Acquired absence of right leg below knee
CPT/HCPCS: 85025; 80048; 36415; 86900; 86850; 85610; 86901; 82947 ×3; 88304; 85730; 11043; J2704; J2003; J3010; J2270; J1171 ×2; J1815; J7030

== ENCOUNTER 2025-01-24 10:04 | Emergency (ER) | payer OTHER ==
--- OUTSIDE RECORDS SUMMARY | 2025-01-24 10:17 | XMS REPORT | Continuity of Care Document ---
Author Name Unknown Address [address] [facility] [address] [place] [address] [facility] Address [address] [facility] [address] [place] [address] Care Team Providers Care Assembly Line Leader Name Role Phone MICHAEL MCKEON Primary Care Physician Abigail Leatha Buckley Attending Clinician Unavailable KAYLA MORFIN Attending Clinician Ajay Hawkins Attending Clinician Unavailable Sandra Tiwari Attending Clinician Unavailable BERONICA BUENO Attending Clinician Unavailable Yuko Beauchamp Attending Clinician Unavailable Eduardo Mishra Attending Clinician Unavailjacqui e Beronica Rodríguez Attending Clinician Doctor Unassigned, [place] Attending Clinician U navailable AUDRA GOLDSTEIN Attending Clinician Unavailable AUDRA GOLDSTEIN Attending Clinician Unavailable Debby Peralta RPH Attending Clinician Unavail able Joaquin BAUM, Dannielle Morocho Attending Clinician UnavailJOSEFA Pina Attending Clinician Unavailable GISELLE MORRISON Attending Clinician Unavailjacqui Mancia MD, Josefa Attending Clinician Unavailab Catherine Winchester MD Attending Clinician [phone] Payam GERBER, Antonio Kapoor Attending Clinician + Te GERBER, Luisa Sandoval Attending Clinician [phone] Giselle Morrison MD Attending Clinician [phone] FROME_ANDRES Attending Clinician Unavailable NARAYAЮЛИЯ_A Attending Clinician Unavailable INDU DORMAN Attending Clinician Unavailable MOHSEN ALARCON Attending Clinician Unavailable CATHERINE MADRIGAL Admitting Clinician Unavailable JOSEFA MANCIA Admitting Clinician Unavailable Yuko Beauchamp Admitting Clinician Unavailable UNDEFINED Admitting Clinician Unavailable Eduardo Mishra Admitting Clinician UnavailLeatha Corley Admitting Clinician Unavailable FROME_ANDRES Admitting Clinician Unavailable NARAYAЮЛИЯ_A Admitting Clinician Unavailable Payers Payer Name Policy Type Policy Number Effective Date Expirati on Date Source [employer] MEDICARE ADV [id number] 2023 00:00:00 [employer] GOLD PLS HMO [id number] 2023 00:00:00 [facility] [id number] 2023 00:00:00 [employer] - GOLD PLUS (MEDICARE REPLACEMENT HMO) [id number] [facility] [id number] 2021 00:00:00 Common [facility] Problems Condition Name Condition Details Condition Category Status Onset Date Resolution Date Last Treatment Date Treating Clinician Comments Source Mild dehydratio n Mild Dehydratio n Problem Active 11-18 00:00: 00 [facility] Urinary tract infectious disease Urinary Tract Infectious [...] Pyuria Pyuria Problem Active 11-14 00:00: 00 [facility] Chronic kidney disease stage 3A Chronic Kidney Disease Stage 3a Problem Active 11-14 00:00: 00 [facility] Surgical wound finding Surgical Wound Finding Problem Active 11-14 00:00: 00 [facility] 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 Polyneurop athy Due to Type 2 Diabetes Mellitus Problem Active 11-14 00:00: 00 [facility] 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 Problem Active 11-14 00:00: 00 [facility] Acute posthemorr hagic anemia Acute Posthemorr hagic Anemia Problem Active 11-06 00:00: 00 [facility] Hypercoagu lability state Hypercoagu lability State [...] Peripheral Angiopathy Problem Active 11-06 00:00: 00 [facility] Hyperlipid emia Hyperlipid emia Problem Active 11-06 00:00: 00 [facility] 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 Problem Active 11-06 00:00: 00 [facility] BPH (benign prostatic hyperplasi a) BPH (benign prostatic hyperplasi a) Disease Active 2023-05 2- 00:00: 00 [facility] Gastroesop hageal reflux disease without esophagiti s Gastroesop hageal reflux disease without esophagiti s Disease Active 2023-05 00:00: 00 [facility] 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 Disease Active 2023-05 00:00: 00 [facility] 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 Disease Active 2023-05 00:00: 00 [facility] Osteoarthr itis of hip, unspecifie d laterality , unspecifie d osteoarthr itis type Osteoarthr itis of hip, unspecifie d laterality , unspecifie d osteoarthr itis type Disease Active 2023-05 00:00: 00 [facility] Paroxysmal atrial fibrillati on Paroxysmal atrial fibrillati on Disease Active 2023-05 00:00: 00 [facility] CAD, multiple vessel CAD, multiple vessel Disease Active 2023-05 00:00: 00 [facility] Stage 3a chronic kidney disease Stage 3a chronic kidney disease Disease Active 2023-05 00:00: 00 [facility] Dyslipidem ia Dyslipidem ia Disease Active 2023-05 00:00: 00 [facility] 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 Disease Active 11-09 00:00: 00 [facility] Type 2 diabetes mellitus, with long-term current use of insulin Type 2 diabetes mellitus, with long-term current use of insulin Disease Active 11-09 00:00: [address] [facility] ST elevation myocardial infarction (STEMI), unspecifie d artery ST elevation myocardial infarction (STEMI), unspecifie d artery Disease Recurre nce 07-27 00:00: 00 [facility] 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 Entered By: Brittnee Malone PA-C;Sign ed By: Brittnee Malone PA-C [facility] Primary hypertensi on Primary hypertensi on Disease Active 05-01 00:00: 00 [facility] Cast removal Cast removal Problem [facility] Encounter for Schreiber catheter replacemen t Encounter for Schreiber catheter replacemen t Problem [facility] [id number] Acute urinary retention Problem [facility] [id number] Other obstructiv e and reflux uropathy Problem [facility] [id number] Chronic cystitis Problem [facility] Detrusor instabilit y Detrusor instabilit y Problem [facility] [id number] 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 Problem Active [facility] [id number] Mixed hyperlipid emia Problem Active [facility] [id number] Benign prostatic hyperplasi a with lower urinary tract symptoms Problem Active [facility] Hyperglyce be due to type 2 diabetes mellitus Type 2 diabetes mellitus with hyperglyce be, without long-term current use of insulin Problem Active [facility] Allergies, Adverse Reactions, Alerts Allergy Name Allergy Type Status Severity Reaction(s) Onset Date Inactive Date Treating Clinician Comments Source codeine DA Active OR ITCHING 07-08 00:00: 00 [facility] codeine DA Active U ITCHING 07-02 00:00: 00 [facility] NO KNOWN ALLERGIE S Allergy Active [facility] NO KNOWN ALLERGIE S Drug Class Active [facility] Social History Social Habit Start Date Stop Date Quantity Comments Source Sexual orientation [facility] History of Tobacco Use [facility] Tobacco use and exposure 2023-11-10 00:00:00 2023-11-10 00:00:00 Smokeless tobacco non-user [facility] Alcohol Comment 2023-11-10 00:00:00 2023-11-10 00:00:00 every now and than [facility] History of Social function 2023-08-08 00:00:00 2023-08-08 00:00:00 [facility] Alcoholic beverage intake 2023-07-31 00:00:00 2023-07-31 00:00:00 Ex-drinker (finding) [facility] Sex 2015-03-11 15:59:41 2015-03-11 15:59:41 Male (finding) [facility] Sex assigned at 1940 00:00:00 1940 00:00:00 [facility] Smoking Status Start Date Stop Date Source Never Smoker [facility] Tobacco smoking consumption unknown [facility] Medications Ordered Medication Name Filled Medication [...] 2023-05 00:00: 00 08-07 04:59 :00 No [id number] inject 0.25 mg under the skin weekly for 4 weeks, THEN 0.5 mg weekly for the remainder. [facility] blood sugar diagnostic strip 2023-05 00:00: 00 Yes [id number] Use as directed. Check blood sugar three to four times daily for diagnosis E11.65. [facility] Lancets (ACCU-CHEK SOFTCLIX LANCETS) Misc 2023-05 00:00: 00 Yes [id number] Use as directed. Check blood sugar three to four times daily for diagnosis E11.65. [facility] insulin degludec (TRESIBA FLEXTOUCH U-200) 200 unit/mL (3 mL) In 2023-05 00:00: 00 Yes [id number] 20U inject 20 Units under the skin at bedtime. For Tresiba: take HALF dose if blood glucose 80 - 120 mg/dL, HOLD if less than 80. [facility] spironolact one 25 mg tablet 11-09 14:52: 39 Yes 25mg Take 1 tablet by mouth in the morning. [facility] aspirin 81 mg chewable tablet 11-09 14:50: 41 Yes 81mg Take 1 tablet by mouth in the morning. [facility] glimepiride 4 mg tablet 11-09 14:50: 41 Yes 4mg Take 1 tablet by mouth daily with breakfast. [facility] sacubitriL- valsartan (ENTRESTO) 49-51 mg tablet 11-09 00:00: 00 Yes Take by mouth. [facility] blood sugar diagnostic strip 11-09 00:00: 00 04-19 00:00 :00 No [id number] Use as directed. Check blood sugar three to four times daily for diagnosis E11.65. [facility] Lancets (ACCU-CHEK SOFTCLIX LANCETS) Misc 11-09 00:00: 00 04-19 00:00 :00 No [id number] Use as directed. Check blood sugar three to four times daily for diagnosis E11.65. [facility] semaglutide (OZEMPIC) 0.25 mg or 0.5 mg (2 mg/3 mL) PnIj 11-09 00:00: 00 02-16 04:59 :00 No [id number] inject 0.25 mg under the skin weekly for 28 days, THEN 0.5 mg weekly thereafter [facility] FIASP FLEXTOUCH U-100 INSULIN 100 unit/mL (3 mL) In 08-23 00:00: 00 04-19 00:00 :00 No 20U inject 20 Units under the skin in the morning. [facility] Finasteride 5 MG Finasteride 5 MG 08-22 00:00: 00 No 1{table t} QD Finasterid e 5 MG empaglifloz in (JARDIANCE) 10 mg tablet 08-04 00:00: 00 09-03 23:59 :00 No 10mg QD Take 1 tablet (10 mg total) by mouth daily for 30 days. [facility] eplerenone (INSPRA) 25 MG tablet 08-04 00:00: 00 08-03 00:00 :00 No 25mg QD Take 1 tablet (25 mg total) by mouth daily for 30 days Bedside delivery. Patient is going home today.. [facility] glipiZIDE (GLUCOTROL) 10 MG tablet 08-03 15:43: 41 Yes type 2 diabetes mellitus 10mg Take 1 tablet (10 mg total) by mouth 2 (two) times daily before meals. [facility] nitroglycer in (NITROSTAT) 0.4 MG SL tablet 08-03 15:43: [address] 1 tablet (0.4 mg total) under the tongue every 5 (five) minutes as needed for Chest pain Put 1 pill under tongue every 5min as needed for chest pain.No more than 3 doses in 15min.Call 911 if pain is unrelieved 5min after 1st dose . [facility] aspirin 81 MG EC tablet 08-03 15:43: 41 Yes 81mg QD Take 1 tablet (81 mg total) by mouth daily. [facility] glimepiride (AMARYL) 4 MG tablet 08-03 15:43: 41 Yes 4mg Take 1 tablet (4 mg total) by mouth every morning before breakfast. [facility] losartan (COZAAR) 100 MG tablet 08-03 11:54: 53 08-03 00:00 :00 No hypertensio n 50mg QD Take 0.5 tablets (50 mg total) by mouth daily. [facility] metFORMIN (GLUCOPHAGE ) 1000 MG tablet 08-03 11:54: 53 08-03 00:00 :00 No type 2 diabetes mellitus 1000mg Take 1 tablet (1,000 mg total) by mouth 2 (two) times daily with breakfast and dinner. [facility] simvastatin (ZOCOR) 40 MG tablet 08-03 11:54: 53 08-03 00:00 :00 No hypercholes terolemia 40mg QD Take 1 tablet (40 mg total) by mouth nightly. [facility] terazosin (HYTRIN) 5 MG capsule 08-03 11:54: 53 08-03 00:00 :00 No hypertensio n 10mg QD Take 2 capsules (10 mg total) by mouth nightly. [facility] celecoxib (CeleBREX) 200 MG capsule 08-03 11:54: 53 08-03 00:00 :00 No 200mg QD Take 1 capsule (200 mg total) by mouth daily Look-ali ke/Sound-a like medication With food. [facility] metoprolol tartrate (LOPRESSOR) 50 MG tablet 08-03 11:54: 53 08-03 00:00 :00 No 50mg QD Take 1 tablet (50 mg total) by mouth daily. [facility] spironolact one (ALDACTONE) 25 MG tablet 08-03 00:00: 00 08-03 23:59 :00 No 25mg QD Take 1 tablet (25 mg total) by mouth daily. [facility] torsemide (DEMADEX) 5 MG tablet 08-03 00:00: 00 08-03 23:59 :00 No 5mg Take 1 tablet (5 mg total) by mouth daily as needed. [facility] sacubitriL- valsartan (ENTRESTO) 24-26 mg tablet 08-03 00:00: 00 09-02 23:59 :00 No 1{tbl} Q.5D Take 1 tablet by mouth 2 (two) times daily for 30 days. [facility] Bupivicaine Ackerman Bupivicaine Ackerman - 00:00: 00 No 5mL Common [facility] Kenalog (Triamcinol one) Kenalog (Triamcinol one) - 00:00: 00 No 1mL [facility] acetaminoph en-codeine (TYLENOL #3) 300-30 mg per tablet 2014-05 00:00: 00 08-03 00:00 :00 No 1{tbl} Take 1-2 tablets by mouth every 4 (four) hours as needed. [facility] atorvastati n 80 mg tablet TAKE ONE (1) TABLET(S) BY MOUTH ONCE A DAY AT BEDTIME. atorvastati n 80 mg tablet TAKE ONE (1) TABLET(S) BY MOUTH ONCE A DAY AT BEDTIME. No atorvastat in 80 mg tablet TAKE ONE (1) TABLET(S) BY MOUTH ONCE A DAY AT BEDTIME. [facility] clopidogrel 75 mg tablet TAKE ONE (1) TABLET(S) BY MOUTH DAILY. clopidogrel 75 mg tablet TAKE ONE (1) TABLET(S) BY MOUTH DAILY. No clopidogre l 75 mg tablet TAKE ONE (1) TABLET(S) BY MOUTH DAILY. [facility] finasteride 5 mg tablet TAKE ONE (1) TABLET(S) BY MOUTH ONCE A DAY. finasteride 5 mg tablet TAKE ONE (1) TABLET(S) BY MOUTH ONCE A DAY. No finasterid e 5 mg tablet TAKE ONE (1) TABLET(S) BY MOUTH ONCE A DAY. [facility] gabapentin 100 mg capsule Take 2 capsules every day by oral route at bedtime. gabapentin 100 mg capsule Take 2 capsules every day by oral route at bedtime. No 2capsul e(s) Q1D gabapentin 100 mg capsule Take 2 capsules every day by oral route at bedtime. [facility] insulin glargine (U-100) 100 unit/mL (3 mL) [...] hours by subcutaneo us route. [facility] Jardiance 25 mg tablet Jardiance 25 mg tablet No Jardiance 25 mg tablet [facility] metoprolol succinate ER 25 mg tablet,exte nded release 24 hr TAKE ONE (1) TABLET(S) BY MOUTH DAILY. metoprolol succinate ER 25 mg tablet,exte nded release 24 hr TAKE ONE (1) TABLET(S) BY MOUTH DAILY. No metoprolol succinate ER 25 mg tablet,ext ended release 24 hr TAKE ONE (1) TABLET(S) BY MOUTH DAILY. [facility] Novolin N NPH U-100 Insulin per sliding scale. Novolin N NPH U-100 Insulin per sliding scale. No Novolin N NPH U-100 Insulin per sliding scale. [facility] pantoprazol e 40 mg tablet,renetta yed release Take 1 tablet twice a day by oral route. pantoprazol e 40 mg tablet,renetta yed release Take 1 tablet twice a day by oral route. No 1 BID pantoprazo le 40 mg tablet,del ayed release Take 1 tablet twice a day by oral route. [facility] tramadol 50 mg tablet Take 1 tablet every 6 hours by oral route as needed for 14 days. tramadol 50 mg tablet Take 1 tablet every 6 hours by oral route as needed for 14 days. No 1 Q6H tramadol 50 mg tablet Take 1 tablet every 6 hours by oral route as needed for 14 days. [facility] Terazosin HCl 10 MG Terazosin HCl 10 [...] t} QD Clopidogre l Bisulfate 75 MG Immunizations Ordered Immunization Name Filled Immunization Name [...] Systolic blood pressure 2024-04-19 20:06:00 136 mm[Hg] [facility] Diastolic blood pressure 2024-04-19 20:06:00 69 mm[Hg] [facility] Heart rate 2024-04-19 20:06:00 79 /min [facility] Body height 2024-04-19 20:06:00 175.3 cm [facility] Body weight 2024-04-19 20:06:00 66.497 kg [facility] BMI 2024-04-19 20:06:00 21.65 kg/m2 [facility] Oxygen saturation in Arterial blood by Pulse oximetry 2024-04-19 20:06:00 100 /min [facility] height 2024-03-20 11:15:00 70 [in_i] Commo n [facility] weight 2024-03-20 11:15:00 146 [lb_av] Comm on [facility] temperature 2024-03-20 11:15:00 98.6 [degF] Com mon [facility] bmi 2024-03-20 11:15:00 20.95 kg/m2 Comm on [facility] height 2024-02-14 10:30:00 70 [in_i] Commo n [facility] weight 2024-02-14 10:30:00 146 [lb_av] Comm on [facility] temperature 2024-02-14 10:30:00 97.4 [degF] Com mon [facility] bmi 2024-02-14 10:30:00 20.95 kg/m2 Comm on [facility] oximetry 2024-02-14 10:30:00 96 % Commo n [facility] respiratory rate 2024-02-14 10:30:00 18 /min [facility] blood pressure systolic 2024-02-14 10:30:00 140 mm[Hg] [facility] blood pressure diastolic 2024-02-14 10:30:00 68 mm[Hg] [facility] Systolic blood pressure 2023-11-10 19:22:00 137 mm[Hg] [facility] Diastolic blood pressure 2023-11-10 19:22:00 70 mm[Hg] [facility] Heart rate 2023-11-10 19:22:00 90 /min [facility] Body height 2023-11-10 19:22:00 175.3 cm [facility] Body weight 2023-11-10 19:22:00 69.536 kg [facility] BMI 2023-11-10 19:22:00 22.64 kg/m2 [facility] Oxygen saturation in Arterial blood by Pulse oximetry 2023-11-10 19:22:00 98 /min [facility] height 2023-08-23 10:30:00 70 [in_i] Commo n [facility] weight 2023-08-23 10:30:00 160.4 [lb_av] Co mmon [facility] temperature 2023-08-23 10:30:00 97.2 [degF] Com mon [facility] bmi 2023-08-23 10:30:00 23.01 kg/m2 Comm on [facility] oximetry 2023-08-23 10:30:00 96 % Commo n [facility] respiratory rate 2023-08-23 10:30:00 18 /min [facility] blood pressure systolic 2023-08-23 10:30:00 130 mm[Hg] [facility] blood pressure diastolic 2023-08-23 10:30:00 60 mm[Hg] [facility] WEIGHT 2023-08-04 05:07:00 74.072 kg WEIGHT 2023-08-03 [...] height 2021-11-23 14:30:00 70 [in_i] Commo n [facility] weight 2021-11-23 14:30:00 179.9 [lb_av] Co mmon [facility] temperature 2021-11-23 14:30:00 97.1 [degF] Com [facility] bmi 2021-11-23 14:30:00 25.81 kg/m2 Comm on [facility] blood pressure systolic 2021-11-23 14:30:00 138 mm[Hg] Common [facility] blood pressure diastolic 2021-11-23 14:30:00 76 mm[Hg] Common [facility] height 2021-11-19 15:20:00 70 [in_i] Commo n [facility] weight 2021-11-19 15:20:00 178 [lb_av] Comm on [facility] temperature 2021-11-19 15:20:00 97.8 [degF] Com [facility] bmi 2021-11-19 15:20:00 25.54 kg/m2 Comm on [facility] oximetry 2021-11-19 15:20:00 96 % Commo n [facility] respiratory rate 2021-11-19 15:20:00 16 /min [facility] blood pressure systolic 2021-11-19 15:20:00 128 mm[Hg] [facility] blood pressure diastolic 2021-11-19 15:20:00 72 mm[Hg] [facility] height 2021-11-19 15:40:00 70 [in_i] Commo n [facility] weight 2021-11-19 15:40:00 178 [lb_av] Comm on [facility] temperature 2021-11-19 15:40:00 97.8 [degF] Com [facility] bmi 2021-11-19 15:40:00 25.54 kg/m2 Comm on [facility] oximetry 2021-11-19 15:40:00 96 % Commo n [facility] respiratory rate 2021-11-19 15:40:00 16 /min [facility] blood pressure systolic 2021-11-19 15:40:00 128 mm[Hg] [facility] blood pressure diastolic 2021-11-19 15:40:00 72 mm[Hg] [facility] height 2021-06-29 14:40:00 70 [in_i] Commo n [facility] weight 2021-06-29 14:40:00 180.2 [lb_av] Co mmon [facility] temperature 2021-06-29 14:40:00 98.2 [degF] Com mon [facility] bmi 2021-06-29 14:40:00 25.85 kg/m2 Comm on [facility] oximetry 2021-06-29 14:40:00 98 % Commo n [facility] respiratory rate 2021-06-29 14:40:00 16 /min [facility] blood pressure systolic 2021-06-29 14:40:00 139 mm[Hg] [facility] blood pressure diastolic 2021-06-29 14:40:00 64 mm[Hg] [facility] Systolic blood pressure 2023-08-04 11:10:00 138 mm[Hg] [facility] Diastolic blood pressure 2023-08-04 11:10:00 63 mm[Hg] [facility] Heart rate 2023-08-04 11:10:00 90 /min [facility] Body temperature 2023-08-04 11:10:00 36.39 Noemi [facility] Respiratory rate 2023-08-04 11:10:00 18 /min [facility] Oxygen saturation in Arterial blood by Pulse oximetry 2023-08-04 11:10:00 96 /min [facility] Body weight 2023-08-04 05:07:00 74.072 kg [facility] BMI 2023-08-04 05:07:00 24.12 kg/m2 [facility] Body height 2023-07-28 23:00:00 175.3 cm [facility] Procedures Procedure Date / Time Performed Performing Clinician Source FLUOROSCOPY OF R LOW EXTREM ART USING L OSM CONTRA 2024-07-10 00:00:00 ROCAEL [facility] FLUOROSCOPY OF AORTA, BI LE ART USING L OSM CONTRA 2024-07-10 00:00:00 ROCAEL [facility] FLUOROSCOPY OF AORTA, BI LE ART USING L OSM CONTRA 2024-07-05 00:00:00 [id number] [facility] FLUOROSCOPY OF R LOW EXTREM ART USING L OSM CONTRA 2024-07-05 00:00:[id number] [place] [address] FLUOROSCOPY OF L LOW EXTREM ART USING L OSM CONTRA 2024-07-05 00:00:00 [id number] [facility] FLUOROSCOPY OF BILATERAL RENAL ARTERIES USING L OS 2024-07-05 00:00:[id number] [place] [address] DIABETES TESTING REPORTS 2024-04-29 17:12:48 Doc tor Unassigned, [place] [facility] DIABETES TESTING REPORTS 2024-04-29 17:12:48 Doc tor Unassigned, [place] [facility] DIABETES TESTING REPORTS 2024-04-29 17:12:47 Doc tor Unassigned, [place] [facility] POCT HEMOGLOBIN A1C TEST 2024-04-19 20:07:00 Winsome Bueno [facility] REFERRAL- REQUEST/RESPONSE 2023-09-01 16:17:40 Sylvie valdovinos Unassigned, [facility] POCT-GLUCOSE METER 2023-08-04 11:14:00 Giselle Morrison Sy ed [facility] POCT-GLUCOSE METER 2023-08-04 07:25:00 Giselle Morrison Sy ed [facility] CBC W/PLT COUNT & AUTO DIFFERENTIAL 2023-08-04 04:23:00 Blas [facility] MAGNESIUM 2023-08-04 04:23:00 Blas [facility] BASIC METABOLIC PANEL 2023-08-04 04:23:00 Giselle Morrison [facility] CBC W/PLT COUNT & AUTO DIFFERENTIAL 2023-08-04 04:23:00 Blas [facility] POCT-GLUCOSE METER 2023-08-03 20:42:00 [facility] POCT-GLUCOSE METER 2023-08-03 17:18:00 [facility] POCT-GLUCOSE METER 2023-08-03 11:44:00 [facility] 2023-08-03 07:58:00 [facility] CBC W/PLT COUNT & AUTO DIFFERENTIAL 2023-08-03 04:52:00 Blas, [facility] MAGNESIUM 2023-08-03 04:52:00 [facility] B-TYPE NATRIURETIC FACTOR (BNP) 2023-08-03 04:52:00 Catherine Madrigal [facility] BASIC METABOLIC PANEL 2023-08-03 04:52:00 [facility] CBC W/PLT COUNT & AUTO DIFFERENTIAL 2023-08-03 04:52:00 Blas, [facility] POCT-GLUCOSE METER 2023-08-02 20:44:00 [facility] POCT-GLUCOSE METER 2023-08-02 17:17:00 [facility] POCT-GLUCOSE METER 2023-08-02 08:01:00 Paola Tiwari [facility] XR CHEST 1 VIEW PORTABLE / BEDSIDE 2023-08-02 05:12:00 Kayla Mofrin [facility] CBC W/PLT COUNT & AUTO DIFFERENTIAL 2023-08-02 04:19:00 [facility] HEPATIC FUNCTION PANEL 2023-08-02 04:19:00 BlasShikha [facility] MAGNESIUM 2023-08-02 04:19:[facility]EL 2023-08-02 04:19:00 Kayla Morfin [facility] OXYGEN SATURATION, MEASURED 2023-08-02 04:19:00 Kayla Morfin [facility] CALCIUM, IONIZED 2023-08-02 04:19:00 Jeannine Morfinholly norris Cat [facility] LACTIC ACID, VENOUS 2023-08-02 04:19:00 Luisa Tiwari [facility] CBC W/PLT COUNT & AUTO DIFFERENTIAL 2023-08-02 04:19:00 Blas [facility] POCT-GLUCOSE METER 2023-08-01 20:24:00 Paola Tiwari Jaime [facility] BASIC METABOLIC PANEL 2023-08-01 17:38:00 Ney Melo [facility] BASIC METABOLIC PANEL 2023-08-01 16:36:00 Kayla Morfin [facility] POCT-GLUCOSE METER 2023-08-01 16:34:00 Paola Tiwarisar [facility] LACTIC ACID, VENOUS 2023-08-01 12:02:00 Mikael [facility] POCT-GLUCOSE METER 2023-08-01 11:27:00 Antonio Hare [facility] OXYGEN SATURATION, MEASURED 2023-08-01 07:55:00 Mercedez Scanlon [facility] POCT-GLUCOSE METER 2023-08-01 07:12:00 Antonio Hare [facility] LACTIC ACID, VENOUS 2023-08-01 06:40:00 Darrick Youssef [facility] CBC W/PLT COUNT & AUTO DIFFERENTIAL 2023-08-01 02:18:00 Blas [facility] HEPATIC FUNCTION PANEL 2023-08-01 02:18:00 Shikha Odonnell [facility] MAGNESIUM 2023-08-01 02:18:00 Blas [facility] BASIC METABOLIC PANEL 2023-08-01 02:18:00 Kayla Morfin [facility] OXYGEN SATURATION, MEASURED 2023-08-01 02:18:00 Kayla Morfin [facility] CALCIUM, IONIZED 2023-08-01 02:18:00 Markus Morfin [facility] CBC W/PLT COUNT & AUTO DIFFERENTIAL 2023-08-01 02:18:00 [facility] 1 VIEW PORTABLE / BEDSIDE 2023-08-01 01:59:00 Kayla Morfin [facility] LACTIC ACID, VENOUS 2023-08-01 00:06:00 Mikael [facility] POCT-GLUCOSE METER 2023-07-31 20:23:00 Antonio Hare [facility] LACTIC ACID, VENOUS 2023-07-31 17:51:00 [facility] OXYGEN SATURATION, MEASURED 2023-07-31 17:51:00 Ghislaine [facility] POCT-GLUCOSE METER 2023-07-31 16:25:00 Antonio Hare [facility] BASIC METABOLIC PANEL 2023-07-31 16:22:00 Kayla Morfin [facility] OXYGEN SATURATION, MEASURED 2023-07-31 13:36:00 Ghislaine [facility] LACTIC ACID, VENOUS 2023-07-31 12:05:00 Mikael [facility] POCT-GLUCOSE METER 2023-07-31 11:05:00 Antonio Hare [facility] LACTATE DEHYDROGENASE (LDH) 2023-07-31 09:37:00 Ney Avendano [facility] HAPTOGLOBIN 2023-07-31 09:37:00 Annetta Avendano [facility] PLASMA FREE HEMOGLOBIN 2023-07-31 09:37:00 Ney Dawn [facility] POCT-GLUCOSE METER 2023-07-31 07:00:00 Catherine Madrigal [facility] LACTIC ACID, VENOUS 2023-07-31 06:36:00 Mikael [facility] XR CHEST 1 VIEW PORTABLE / BEDSIDE 2023-07-31 04:02:00 Kayla Morfin [facility] LACTIC ACID, VENOUS 2023-07-31 02:54:00 Mikael [facility] CBC W/PLT COUNT & AUTO DIFFERENTIAL 2023-07-31 02:54:00 [facility] HEPATIC FUNCTION PANEL 2023-07-31 02:54:00 [facility] MAGNESIUM 2023-07-31 02:54:00 [facility] BASIC METABOLIC PANEL 2023-07-31 02:54:00 Kayla Morfin [facility] OXYGEN SATURATION, MEASURED 2023-07-31 02:54:00 Kayla Morfin [facility] CALCIUM, IONIZED 2023-07-31 02:54:00 Markus Morfin [facility] CBC W/PLT COUNT & AUTO DIFFERENTIAL 2023-07-31 02:54:00 [facility] BLOOD GAS, VENOUS 2023-07-30 23:23:00 Darrick Youssef [facility] POCT-GLUCOSE METER 2023-07-30 20:35:00 Catherine Madrigal [facility] POCT-GLUCOSE METER 2023-07-30 16:17:00 Catherine Madrigal [facility] BASIC METABOLIC PANEL 2023-07-30 15:14:00 Kayla Morfin [facility] CBC (HEMOGRAM ONLY) 2023-07-30 15:14:00 Glo Morfin [facility] LACTIC ACID, ARTERIAL 2023-07-30 15:14:00 Kayla Morfin [facility] OXYGEN SATURATION, MEASURED 2023-07-30 15:14:00 Kayla Morfin [facility] US RENAL COMPLETE 2023-07-30 14:36:00 Jeannine Morfin [facility] POCT-GLUCOSE METER 2023-07-30 11:10:00 Catherine Madrigal [facility] LACTATE DEHYDROGENASE (LDH) 2023-07-30 08:55:00 Kayla Morfin [facility] PLASMA FREE HEMOGLOBIN 2023-07-30 08:55:00 Kayla Morfin [facility] HAPTOGLOBIN 2023-07-30 08:55:00 Jane Morfin [facility] APTT 2023-07-30 08:55:00 Jane Morfin [facility] XR CHEST 1 VIEW PORTABLE / BEDSIDE 2023-07-30 08:52:17 Indu Dorman [facility] POCT-GLUCOSE METER 2023-07-30 07:36:00 Catherine Madrigal [facility] URINALYSIS W/ MICROSCOPIC 2023-07-30 02:10:00 Kayla Goins [facility] OXYGEN SATURATION, MEASURED 2023-07-30 02:10:00 Kayla Morfin [facility] CALCIUM, IONIZED 2023-07-30 02:10:00 Markus Morfin [facility] BLOOD GAS, ARTERIAL 2023-07-30 02:10:00 Catherine Madrigal [facility] CBC W/PLT COUNT & AUTO DIFFERENTIAL 2023-07-30 02:04:00 [facility] HEPATIC FUNCTION PANEL 2023-07-30 02:04:00 Shikha Odonnell [facility] MAGNESIUM 2023-07-30 02:04:00 Blas [facility] HIGH SENSITIVITY TROPONIN I 2023-07-30 02:04:00 Kayla Morfin [facility] BASIC METABOLIC PANEL 2023-07-30 02:04:00 Kayla Morfin [facility] LACTATE DEHYDROGENASE (LDH) 2023-07-30 02:04:00 Kayla Morfin [facility] PLASMA FREE HEMOGLOBIN 2023-07-30 02:04:00 Kayla Morfin [facility] HAPTOGLOBIN 2023-07-30 02:04:00 Jane Morfin [facility] APTT 2023-07-30 02:04:00 Jane Morfin [facility] LACTIC ACID, ARTERIAL 2023-07-30 02:04:00 Kayla Morfin [facility] CBC W/PLT COUNT & AUTO DIFFERENTIAL 2023-07-30 02:04:00 Amber Odonnell [facility] APTT 2023-07-29 21:43:00 Jane Morfin [facility] LACTIC ACID, ARTERIAL 2023-07-29 21:43:00 Kayla Morfin [facility] HIGH SENSITIVITY TROPONIN I 2023-07-29 21:43:00 Kayla Morfin [facility] LACTATE DEHYDROGENASE (LDH) 2023-07-29 21:43:00 Kayla Morfin [facility] PLASMA FREE HEMOGLOBIN 2023-07-29 21:43:00 Kayla Morfin [facility] HAPTOGLOBIN 2023-07-29 21:43:00 Jane Morfin [facility] ECG 12-LEAD 2023-07-29 18:05:31 Jane Morfin [facility] ECG 12-LEAD 2023-07-29 18:05:31 Unknown, Hl7 [facility] POCT-GLUCOSE METER 2023-07-29 17:53:00 Josefa Mancia [facility] XR CHEST 1 VIEW PORTABLE / BEDSIDE 2023-07-29 17:46:00 Kayla Morfin [facility] LACTIC ACID, ARTERIAL 2023-07-29 17:45:00 Kayla Morfin [facility] OXYGEN SATURATION, MEASURED 2023-07-29 17:45:00 Kayla Morfin [facility] CBC (HEMOGRAM ONLY) 2023-07-29 17:45:00 Glo Morfin [facility] PROTHROMBIN TIME/INR 2023-07-29 17:45:00 Jeannine Morfinghan [facility] APTT 2023-07-29 17:45:00 Jane Morfin [facility] BLOOD GAS, ARTERIAL 2023-07-29 16:41:00 Catherine Madrigal [facility] HIGH SENSITIVITY TROPONIN I 2023-07-29 15:47:00 Kayla Morfin [facility] HEMOGLOBIN A1C 2023-07-29 15:47:00 Jane Morfin natalia [facility] BASIC METABOLIC PANEL 2023-07-29 15:47:00 Navjot Kayla [facility] LACTATE DEHYDROGENASE (LDH) 2023-07-29 15:47:00 Jeannine Morfinghan [facility] PLASMA FREE HEMOGLOBIN 2023-07-29 15:47:00 Navjot Kayla [facility] HAPTOGLOBIN 2023-07-29 15:47:00 Jane Morfin [facility] URINALYSIS W/ MICROSCOPIC 2023-07-29 15:47:00 Kayla Goins [facility] MAGNESIUM 2023-07-29 15:47:00 Rimma [facility] SODIUM, RANDOM URINE 2023-07-29 12:56:00 Kam Dupont [facility] UREA NITROGEN, RANDOM URINE 2023-07-29 12:56:[address] [facility] CREATININE, RANDOM URINE 2023-07-29 12:56:[address] [facility] ECHO W CONTRAST & DOPPLER 2023-07-29 12:20:00 Sheila Odonnell [facility] POCT-GLUCOSE METER 2023-07-29 12:15:00 Josefa Mancia [facility] APTT 2023-07-29 12:07:00 Rimma [facility] BASIC METABOLIC PANEL 2023-07-29 08:43:00 Kayla Morfin [facility] URINALYSIS WITHOUT MICROSCOPIC 2023-07-29 08:22:00 Rimma [facility] LACTATE DEHYDROGENASE (LDH) 2023-07-29 08:22:00 Rimma [facility] HAPTOGLOBIN 2023-07-29 08:22:00 Rimma [facility] PLASMA FREE HEMOGLOBIN 2023-07-29 08:22:00 Kathy Shanks [facility] ECG 12-LEAD 2023-07-29 08:19:30 Unknown, Hl7 [facility] ECG 12-LEAD 2023-07-29 08:19:30 Unknown, Hl7 [facility] ECG 12-LEAD 2023-07-29 08:17:41 Unknown, Hl7 [facility] ECG 12-LEAD 2023-07-29 08:13:58 Unknown, Hl7 [facility] XR CHEST 1 VIEW PORTABLE / BEDSIDE 2023-07-29 07:39:00 Mohsen Alarcon [facility] HIGH SENSITIVITY TROPONIN I 2023-07-29 07:33:00 Massumi, [facility] APTT 2023-07-29 06:57:00 Haloot, [facility] POCT-GLUCOSE METER 2023-07-29 06:11:00 Massumi, [facility] PLASMA FREE HEMOGLOBIN 2023-07-29 05:22:00 Haloot, [facility] HAPTOGLOBIN 2023-07-29 05:22:00 Haloot, [facility] LACTATE DEHYDROGENASE (LDH) 2023-07-29 05:22:00 Haloot, [facility] CBC W/PLT COUNT & AUTO DIFFERENTIAL 2023-07-29 05:22:00 Haloot, [facility] PT/APTT 2023-07-29 05:22:00 Blas, [facility] PROTHROMBIN TIME/INR 2023-07-29 05:22:00 Blas, [facility] CBC W/PLT COUNT & AUTO DIFFERENTIAL 2023-07-29 05:22:00 Haloot, [facility] URINALYSIS W/ MICROSCOPIC 2023-07-29 02:36:00 Blas, [facility] BASIC METABOLIC PANEL 2023-07-29 02:20:00 Blas, [facility] CBC W/PLT COUNT & AUTO DIFFERENTIAL 2023-07-29 02:20:00 Blas, [facility] HEPATIC FUNCTION PANEL 2023-07-29 02:20:00 Blas, Mohame d [facility] MAGNESIUM 2023-07-29 02:20:00 Blas, [facility] LACTATE DEHYDROGENASE (LDH) 2023-07-29 02:20:00 Haloot, [facility] CBC W/PLT COUNT & AUTO DIFFERENTIAL 2023-07-29 02:20:00 Blas, [facility] HEMOGLOBIN A1C 2023-07-29 02:19:00 Blas, [facility] HIGH SENSITIVITY TROPONIN I 2023-07-29 02:19:00 Blas, [facility] B-TYPE NATRIURETIC FACTOR (BNP) 2023-07-29 02:19:00 Blas, [facility] POCT-GLUCOSE METER 2023-07-29 02:18:00 [facility] ECG 12-LEAD 2023-07-29 02:05:41 Haloot, [facility] ECG 12-LEAD 2023-07-29 02:05:41 Unknown, Hl7 Doctor Lange [facility] POCT-ACT 2023-07-29 01:00:00 [facility] POCT-ACT 2023-07-29 00:47:00 [facility] POCT-ACT 2023-07-29 00:35:00 [facility], [facility] POCT-ACT 2023-07-29 00:05:00 [facility] POCT-ACT 2023-07-28 23:53:00 [facility], [facility] ANGIOGRAM, CORONARY, WITH LEFT HEART CATHETERIZATION 2023-07-28 23:26:00 Massleonard, [facility] ECG 12-LEAD 2023-07-28 23:09:22 Unknown, Hl7 Doctor Nazario [facility] ECG 12-LEAD 2023-07-28 23:09:22 Unknown, Hl7 Doctor Nazario [facility] ECG 12-LEAD 2023-07-28 23:08:23 Unknown, Hl7 Doctor Nazario [facility] ECG 12-LEAD 2023-07-28 23:06:22 Unknown, Hl7 [facility] ECG 12-LEAD 2023-07-28 23:05:51 Blas, [facility] ECG 12-LEAD 2023-07-28 23:05:51 Unknown, Hl7 [facility] VASCULAR DIAGRAM -SCAN 2023-07-28 00:00:00 Provi steve, Default Scanning [facility] CARDIAC CATH REPORT - SCAN 2023-07-28 00:00:00 P rovider, Default Scanning [facility] Amputation of Right Leg through Tibia and Fibula [facility] Medical Coronary Artery Bypass Graft [facility] Medical Encounters Start Date/Time End Date/Time Encounter Type Admission Type Attending Clinicians Care Facility Care Department Encounter ID Source 2023-08-14 09:27:01 Outpatient JulyLeatha cason [facility] [id number] [facility] 2023-07-30 13:55:17 Inpatient KAYLA ACEVEDO [facility] [id number] [facility] 2023-07-29 06:57:51 Inpatient [facility] [id number] [facility] 2023-02-22 09:25:00 Outpatient Ajay Saldivar [facility] [id number] [facility] 2022-09-09 10:34:01 Outpatient Sandra Tiwari [facility] [id number] [facility] 2022-06-06 08:22:01 Outpatient Sandra Tiwari [facility] [id number] [facility] 2022-01-13 08:03:01 Outpatient Sandra Tiwari [facility] [id number] [facility] 2021-11-17 10:30:02 Outpatient Sandra Tiwari [facility] [id number] [facility] 2021-10-20 13:40:02 Outpatient Sandra Tiwari [facility] [id number] [facility] 2021-10-15 14:04:03 Outpatient TiwariSandra [facility] [id number] [facility] 2021-10-14 10:30:01 Outpatient TiwariSandra joseph [facility]I [facility] [id number] [facility] 2021-10-06 09:59:03 Outpatient TiwariSandra ST[facility] [id number] [facility] 2021-07-01 08:41:04 Outpatient TiwariSandra STLC [facility] [id number] [facility] 2021-06-29 14:19:02 Outpatient TiwariSandra joseph STLC [facility] [id number] [facility] 2024-11-15 00:00:00 2024-11-15 00:00:00 TORO Mario: [address] [place], [place] [address] , Ph. Formerly [facility] [id number] [facility] 2024-11-14 00:00:00 2024-11-14 00:00:00 Kale Meyer MD: [address] [place], [place] [address] , Ph. Formerly [facility]_Lak [facility] [id number] [facility] 2024-11-11 00:00:00 2024-11-11 00:00:00 TORO Mario: [address] [place], [place] [address] , Ph. [facility]_Lak [facility] [id number] [facility] 2024-11-06 00:00:00 2024-11-06 00:00:00 TORO Mario: [address] [place] [id number] , Ph. [facility]_BAHC_Lak e [facility] [id number] [facility] 2024-10-16 00:00:00 2024-10-16 00:00:00 (TEL) [facility] [id number] [facility] 2024-07-23 00:00:00 2024-07-23 00:00:00 (TEL) [facility] [id number] [facility] 2024-07-08 14:33:00 2024-07-11 15:58:00 Inpatient [facility]lyn [facility] ADMI [id number] [facility] 2024-07-10 12:50:00 2024-07-10 12:50:00 Outpatient Ashlyn Beauchamp HCANW REF [id number] [facility] 2024-07-02 16:00:00 2024-07-08 15:37:00 Inpatient TR Eduardo Mishra [facility] MED[facility].[id number] [facility] 2024-07-05 10:30:00 2024-07-05 10:30:00 Outpatient R XIMENA [facility] [id number] [facility] 2024-06-28 00:00:00 2024-06-28 10:39:23 Refill Ximena On license of [facility] [id number] [facility] 2024-06-14 00:00:00 2024-06-17 09:54:35 Telephone Ximena On license of [facility] [id number] [id number] [id number] [id number] [facility] 2024-04-29 00:00:00 2024-06-15 06:24:51 Orders Only Doctor Unassigned, [place] Doctor Unassigned, [place] [facility] (AMANDA) [id number] 350.1.13.10 4.2.7.2.686 [id number] [facility] 2024-04-29 00:00:00 2024-06-15 06:24:42 Orders Only Doctor Unassigned, [place] Doctor Unassigned, [place] [facility] (AMANDA) [id number] 350.1.13.10 4.2.7.2.686 [id number] [facility] 2024-04-29 00:00:00 2024-06-15 06:24:35 Orders Only Doctor Unassigned, [place] Doctor Unassigned, [place] [facility] (AMANDA) [id number] 350.1.13.10 [id number] [id number] [facility] 2023-09-01 00:00:00 2024-06-15 02:04:11 Orders Only Doctor Unassigned, [place] Doctor Unassigned, [place] [facility] (AMANDA) [id number] 350.1.13.10 4.2.7.2.686 [id number] [facility] 2024-06-12 00:00:00 2024-06-12 00:00:00 OFFICE VISIT ESTAB PT LEVEL 1 STLMLC STLC [id number] [facility] 2024-06-10 14:15:00 2024-06-10 14:15:00 Outpatient AUDRA HAYES MITCHELL [facility] [id number] [facility] 2024-04-29 00:00:00 2024-04-29 11:31:45 Letter (Out) [facility] (AMANDA) [id number] 350.1.13.10 [id number] [id number] [facility] 2024-04-19 14:00:00 2024-04-19 14:34:52 Outpatient R BERONICA BUENO [facility] [id number] [facility] 2024-04-19 14:00:00 2024-04-19 14:34:52 Office Visit ChiBeronica lam [facility] [id number] 350.1.13.10 [id number] [id number] [facility] 2024-04-05 00:00:00 2024-04-05 00:00:00 (TEL) STLMLC STLMLC [id number] [facility] 2024-03-20 00:00:00 2024-03-20 00:00:00 (NV) Nurse Visit STLMLC STLMLC [id number] [facility] 2024-03-15 00:00:00 2024-03-15 00:00:00 (NV) Nurse Visit STLMLC STLMLC [id number] [facility] 2024-03-14 00:00:00 2024-03-14 00:00:00 (TEL) STLMLC STLMLC [id number] [facility] 2024-02-14 00:00:00 2024-02-14 00:00:00 OFFICE VISIT ESTAB PT LEVEL 4 STLMLC STLMLC [id number] [facility] 2024-01-24 00:00:00 2024-01-24 00:00:00 (NV) Nurse Visit STLC STLC [id number] [facility] 2024-01-08 00:00:00 2024-01-09 16:20:36 Telephone Debby Peralta Khushbu [facility] 1.840.114 350.1.13.10 [id number] [id number] [facility] 2024-01-05 14:00:00 2024-01-05 14:00:00 Outpatient R BERONICA BUENO [facility] [id number] [facility] 2024-01-03 00:00:00 2024-01-03 13:55:20 Telephone Debby Peralta Khushbu [facility] [id number] 350.1.13.10 4.2.7.2.686 [id number] [facility] 2023-11-17 00:00:00 2023-11-17 00:00:00 ([place]) Nurse Visit STLMLC STLMLC [id number] [facility] 2023-11-10 14:00:00 2023-11-10 15:38:44 Outpatient R CHITIRSO LAMA [facility] [id number] [facility] 2023-11-10 14:00:00 2023-11-10 15:38:44 [facility] [id number] 350.1.13.10 [id number] [id number] [facility] 2023-10-20 00:00:00 2023-10-20 00:00:00 ([place]) Nurse Visit STLMLC STLMLC [id number] [facility] 2023-09-18 00:00:00 2023-09-18 00:00:00 ([place]) Nurse Visit STLMLC STLMLC [id number] [facility] 2023-08-23 00:00:00 2023-08-23 00:00:00 OFFICE VISIT NEW PT LEVEL 3 STLMLC STLMLC [id number] [facility] 2023-08-08 00:00:00 2023-08-08 20:14:14 Mary NuñezDannielle Rashawn [facility] [id number] [facility] 2023-08-07 00:00:00 2023-08-07 00:00:00 Outpatient JOSEFA MANCIA [id number] Katina Bourne 2023-07-28 22:56:00 2023-08-04 15:43:00 Inpatient ER GISELLE MORRISON [facility] [id number] [facility] 2023-07-28 22:56:00 2023-08-04 15:43:00 Hospital Encounter ER Me Gavinokd Madrigal, Catherine Hare, Antonio Tiwari, Giselle Orozco [facility] [id number] [facility] 2023-08-02 01:07:51 2023-08-02 01:07:51 Outpatient KAYLA ACEVEDO [facility] [id number] [facility] 2023-08-01 00:03:46 2023-08-01 00:03:46 Outpatient KAYLA ACEVEDO [facility] [id number] [facility] 2023-08-01 00:00:00 2023-08-01 00:00:00 Outpatient FROME_AI [facility]IC [id number] [facility] 2023-08-01 00:00:00 2023-08-01 00:00:00 Outpatient ELINA_A PANRSOH PANRSOH [id number] [facility] 2023-07-31 00:09:55 2023-07-31 00:09:55 [facility] [id number] [facility] 2023-07-30 07:13:33 2023-07-30 07:13:33 Outpatient INDU MATHEW SLE SLE [id number] [facility] 2023-07-29 17:15:22 2023-07-29 17:15:22 Outpatient KAYLA ACEVEDO SLE SLE [id number] [facility] 2023-07-29 06:40:41 2023-07-29 06:40:41 Outpatient MOHSEN [facility] [id number] [facility] 2023-07-28 00:00:00 2023-07-29 02:06:26 Orders Only [facility] [id number] [facility] 2023-07-28 23:20:00 2023-07-29 01:27:00 Surgery Josefa Mancia [facility] [id number] [facility] 2023-07-29 00:00:00 2023-07-29 00:00:00 Travel [facility] [id number] [facility] 2022-08-26 00:00:00 2022-08-26 00:00:00 (TEL) STLMLC STLMLC [id number] [facility] 2021-12-22 00:00:00 2021-12-22 00:00:00 (TEL) STLMLC STLMLC [id number] [facility] 2021-11-23 00:00:00 2021-11-23 00:00:00 OFFICE VISIT NEW PT LEVEL 3 STLMLC STLMLC [id number] [facility] 2021-11-19 00:00:00 2021-11-19 00:00:00 ([facility]) Medicare Wellness STLMLC STLMLC [id number] [facility] 2021-11-19 00:00:00 2021-11-19 00:00:00 OFFICE VISIT ESTAB PT LEVEL 4 STLMLC STLMLC [id number] [facility] 2021-10-18 00:00:00 2021-10-18 00:00:00 (TEL) STLMLC STLMLC [id number] [facility] 2021-06-29 00:00:00 2021-06-29 00:00:00 OFFICE VISIT ESTAB PT LEVEL 4 STLMLC STLMLC [id number] [facility] Results Test Description Test Time Test Comments Results Result Co mments Source [id number] 12:00:00* Test Item Value Reference Range Interpretation Comme nts GLUBED (test code = GLUBED) 255 MG/DL 70-105 H [id number] 07:43:00* Test Item Value Reference Range Interpretation [...] CHD)40-59mg/dL: Borderline Risk LDL Cholesterol<100mg/dL: Desirable LDL-C bhnojopmharpw019-369ud/ dL: Borderline High Risk LDL-C debeiefwvdpvt921-677yp/ dL: High risk LDL-C concentration HDL-LDL Cholesterol is affected by a number of factors suchas smoking, age and sex.~~~~~~~~~~~~~~~~~~~ ~~~~~~~~~~~~~~~~~~~~~~~ ~~~~~~~~~~~~~~~~~~ HGBA1C - GLYCOSYLATED [id number] 06:08:00* Test Item Value Reference Range Interpretation Comme nts GLYCOSYLATED HEMOGLOBIN (HA1C) (test code = GLYHGB) 7.6 % <5.7 H Diabetic >/= 6.5%Prediabetes 5.7-6.4%Normal < 5.7% [id number] 21:14:00* Test Item Value Reference Range Interpretation Comme nts GLUBED (test code = GLUBED) 202 MG/DL 70-105 H - XR CHEST 1 [id number] 20:05:00 [facility] 1940 Sex: MPatient Name: NAVJOT DAS Unit No: [id number] EXAMS: CPT CODE: [id number] XR CHEST 1 V 61089 EXAM: AP chest LOCATION: H 12 HISTORY: Pre-op COMPARISON: None. FINDINGS: The lungs are clear.No infiltrate or effusion is seen. Calcified pleural plaque are noted. The pulmonary vasculature isnormal. The heart size is enlarged. 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 The mediastinal silhouette is unremarkable. The bony thorax is intact with degenerative changes noted. IMPRESSION: No acute disease. at 2004 Reported and signed by: DAT SOL M.D. CC: Karma CF1 Tee Henson MD Technologist: Blanca Chand Time: DAP (Gy m2): Air Kerma (mGy): Trscr Dt/Tm: 07/10/2024 (2004) by:AngelFC Printed Date/Time: 07/10/2024 (2007) Name: NAVJOT [facility] Phys: Karma Fournier DO [address] : 1940 Age: 83 Sex: [place] [address] Loc: P.0905 1 Exam Date: 07/10/2024 Status: ADM IN PH: FAX: PAGE 1 Signed [id number] 17:36:00* Test Item Value Reference Range Interpretation Comme nts GLUBED (test code = GLUBED) 162 MG/DL 70-105 H UA RFLX MICR CULT IF [id number] 14:01:00* Test Item Value Reference Range Interpretation [...] SCHREIBER CATHETERIZED URINECath Status: 7 days or [id number] 07:53:00* Test Item Value Reference Range Interpretation Comme nts GLUBED (test code = GLUBED) 133 MG/DL 70-105 H COMPREHENSIVE METABOLIC [id number] 04:36:00* Test Item Value Reference Range Interpretation [...] code = ALKP) 97.0 U/L 46-116 N [id number] 04:36:00* Test Item Value Reference Range Interpretation Comme nts MAGNESIUM (test code = MAG) 2.6 mg/dL 1.6-2.6 N CBC W/AUTO [id number] 04:16:00* Test Item Value Reference Range Interpretation [...] x10 3/uL 0.0-0.20 N - DUP VEIN [id number] 20:57:00 [facility] Naz[facility] : 1940 Sex: MPatient Name: NAVJOT DAS Nazario Unit No: [id number] EXAMS: CPT CODE: [id number] DUP VEIN BENJAMIN 54565 EXAM: Bilateral lower extremity venous Doppler. LOCATION: [...] calf: 0.30 cm SSV distal: 0.35 cm at 2056 Reported and signed by: DAT SOL M.D. Name: [facility] Phys: Heather Molina MD R3 [address] : 1940 Age: 83 Sex: M [place] [address] Loc: P.0905 1 Exam Date: 07/09/2024 Status: ADM IN PH: FAX: PAGE 1 Signed Report (CONTINUED) Patient Name: NAVJOT DAS Unit No: [id number] EXAMS: CPT CODE: [id number] DUP VEINBIL 53314 (Continued) CC: Yuko Henson MD; Heather Granados MD Technologist: YASMINE TURNER RDMS, AB Probe: Trscr Dt/Tm: 07/09/2024 (2056) by:Alex Printed Date/Time: 07/09/2024 (2099) Name: NAVJOT DAS [facility] Phys: Heather Molina MD R3 [address] : 1940 Age: 83 Sex: M [place] [address] Loc: P.0905 1 Exam Date: 07/09/2024 Status: ADM IN PH: FAX: PAGE 2 Signed [id number] 20:37:00* Test Item Value Reference Range Interpretation Comme nts GLUBED (test code = GLUBED) 165 MG/DL 70-105 H [id number] 16:43:00* Test Item Value Reference Range Interpretation Comme nts GLUBED (test code = GLUBED) 137 MG/DL 70-105 H [id number] 12:08:00* Test Item Value Reference Range Interpretation Comme nts GLUBED (test code = GLUBED) 256 MG/DL 70-105 H [id number] 08:22:00* Test Item Value Reference Range Interpretation Comme nts GLUBED (test code = GLUBED) 195 MG/DL 70-105 H [id number] 21:07:00* Test Item Value Reference Range Interpretation Comme nts GLUBED (test code = GLUBED) 284 MG/DL 70-105 H - DUP LE ART [id number] 20:23:00 [facility] 1940 Sex: MPatient Name: NAVJOT DAS Unit No: [id number] EXAMS: CPT CODE: [id number] DUP LE ART BENJAMIN [address] Exam: Bilateral lower extremity radiculopathy. HISTORY: BLE [...] Printed Date/Time: 07/08/2024 (2025) Name: [facility] Phys: Norris Saini [address] : 1940 Age: 83 Sex: [place] [address] Loc: P.0905 1 Exam Date: 07/08/2024 Status: ADM IN PH: FAX: PAGE 1 Signed ReportCOMPREHENSIVE METABOLIC [id number] 18:22:00* Test Item Value Reference Range Interpretation [...] code = CK) 33 U/L 34-171 L [id number] 18:22:00* Test Item Value Reference Range Interpretation Comme nts MAGNESIUM (test code = MAG) 1.1 mg/dL 1.6-2.6 L CBC W/AUTO [id number] 18:05:00* Test Item Value Reference Range Interpretation [...] = BA#) 0.02 x10 3/uL 0.0-0.20 N [id number] 16:43:00* Test Item Value Reference Range Interpretation Comme nts GLUBED (test code = GLUBED) 182 MG/DL 70-105 H GLUCOSE BEDSIDE [id number] 12:56:00* Test Item Value Reference Range Interpretation Comme nts GLUCOSE BEDSIDE TESTING (sugey t code = GLUBED) 211 mg/dL 70-110 H GLUCOSE BEDSIDE [id number] 11:36:00* Test Item Value Reference Range Interpretation Comme nts GLUCOSE BEDSIDE TESTING (sugey t code = GLUBED) 133 mg/dL 70-110 H BASIC METABOLIC [id number] 04:26:00* Test Item Value Reference Range Interpretation [...] CA) 8.7 MG/DL 8.5-10.1 N CBC W/AUTO [id number] 04:05:00* Test Item Value Reference Range Interpretation [...] NRBC#) 0.0 K/mm3 0.00-0.01 N GLUCOSE BEDSIDE [id number] 17:23:00* Test Item Value Reference Range Interpretation Comme nts GLUCOSE BEDSIDE TESTING (sugey t code = GLUBED) 170 mg/dL 70-110 H GLUCOSE BEDSIDE [id number] 12:22:00* Test Item Value Reference Range Interpretation Comme nts GLUCOSE BEDSIDE TESTING (sugey t code = GLUBED) 202 mg/dL 70-110 H GLUCOSE BEDSIDE [id number] 08:28:00* Test Item Value Reference Range Interpretation Comme nts GLUCOSE BEDSIDE TESTING (sugey t code = GLUBED) 165 mg/dL 70-110 H BASIC METABOLIC [id number] 04:32:00* Test Item Value Reference Range Interpretation [...] CA) 8.3 MG/DL 8.5-10.1 L THROMBOPLASTIN TIME [id number] 04:20:00* Test Item Value Reference Range Interpretation Comme nts THROMBOPLASTIN TIME PARTIAL (test code = PTT) 70.3 SECONDS 26-35 H CBC W/AUTO [id number] 04:14:00* Test Item Value Reference Range Interpretation [...] NRBC#) 0.0 K/mm3 0.00-0.01 N GLUCOSE BEDSIDE [id number] 21:56:00* Test Item Value Reference Range Interpretation Comme nts GLUCOSE BEDSIDE TESTING (sugey t code = GLUBED) 194 mg/dL 70-110 H GLUCOSE BEDSIDE [id number] 16:56:00* Test Item Value Reference Range Interpretation Comme nts GLUCOSE BEDSIDE TESTING (sugey t code = GLUBED) 209 mg/dL 70-110 H GLUCOSE BEDSIDE [id number] 12:52:00* Test Item Value Reference Range Interpretation Comme nts GLUCOSE BEDSIDE TESTING (sugey t code = GLUBED) 201 mg/dL 70-110 H GLUCOSE BEDSIDE [id number] 08:22:00* Test Item Value Reference Range Interpretation Comme nts GLUCOSE BEDSIDE TESTING (sugey t code = GLUBED) 132 mg/dL 70-110 H CBC W/AUTO [id number] 05:56:00* Test Item Value Reference Range Interpretation [...] NRBC#) 0.0 K/mm3 0.00-0.01 N BASIC METABOLIC [id number] 05:37:00* Test Item Value Reference Range Interpretation [...] CA) 8.4 MG/DL 8.5-10.1 L THROMBOPLASTIN TIME [id number] 05:30:00* Test Item Value Reference Range Interpretation Comme nts THROMBOPLASTIN TIME PARTIAL (test code = PTT) 46.9 SECONDS 26-35 H GLUCOSE BEDSIDE [id number] 22:10:00* Test Item Value Reference Range Interpretation Comme nts GLUCOSE BEDSIDE TESTING (sugey t code = GLUBED) 126 mg/dL 70-110 H GLUCOSE BEDSIDE [id number] 17:29:00* Test Item Value Reference Range Interpretation Comme nts GLUCOSE BEDSIDE TESTING (sugey t code = GLUBED) 165 mg/dL 70-110 H GLUCOSE BEDSIDE [id number] 12:30:00* Test Item Value Reference Range Interpretation Comme nts GLUCOSE BEDSIDE TESTING (sugey t code = GLUBED) 92 mg/dL 70-110 N CORTISOL [id number] 10:12:00* Test Item Value Reference Range Interpretation Comme nts CORTISOL AM (test code = CORTAM) 18.1 ug/dL 6.2-19.4 Performed At: [facility] [address] [id number] Sergey Lamar MD Ph:[phone] GLUCOSE BEDSIDE [id number] 09:57:00* Test Item Value Reference Range Interpretation Comme nts GLUCOSE BEDSIDE TESTING (sugey t code = GLUBED) 153 mg/dL 70-110 H GLUCOSE BEDSIDE [id number] 08:23:00* Test Item Value Reference Range Interpretation Comme nts GLUCOSE BEDSIDE TESTING (sugey t code = GLUBED) 69 mg/dL 70-110 L THROMBOPLASTIN TIME [id number] 04:01:00* Test Item Value Reference Range Interpretation Comme nts THROMBOPLASTIN TIME PARTIAL (test code = PTT) 57.7 SECONDS 26-35 H CBC W/AUTO [id number] 03:56:00* Test Item Value Reference Range Interpretation [...] NRBC#) 0.0 K/mm3 0.00-0.01 N THROMBOPLASTIN TIME [id number] 20:39:00* Test Item Value Reference Range Interpretation Comme nts THROMBOPLASTIN TIME PARTIAL (test code = PTT) 47.4 SECONDS 26-35 H GLUCOSE BEDSIDE [id number] 20:23:00* Test Item Value Reference Range Interpretation Comme nts GLUCOSE BEDSIDE TESTING (sugey t code = GLUBED) 121 mg/dL 70-110 H GLUCOSE BEDSIDE [id number] 20:23:00* Test Item Value Reference Range Interpretation Comme nts GLUCOSE BEDSIDE TESTING (sugey t code = GLUBED) 127 mg/dL 70-110 H UR SODIUM [id number] 19:09:00* Test Item Value Reference Range Interpretation [...] interpret this result as normal/abnormal. UR POTASSIUM [id number] 19:09:00* Test Item Value Reference Range Interpretation [...] interpret this result as normal/abnormal. UR CHLORIDE [id number] 19:09:00* Test Item Value Reference Range Interpretation Comme nts UR CHLORIDE RANDOM (test code = CLU) 74 mmol/L Not Estab. Performed At: [facility] [address] [id number] Lamar MD Ph:[phone] UR PROTEIN [id number] 19:09:00* Test Item Value Reference Range Interpretation Comme nts UR PROTEIN TOTAL (test code = PROTU) 49 MG/DL The Reference Ra nge and Method Performance specificationshave not been established for this fluid. The test resultshould be correlated into the clinical context forinterpretation. UR CREATININE [id number] 19:09:00* Test Item Value Reference Range Interpretation [facility] CREATININE RANDOM (test code = CREATU) 27.1 MG/DL The Reference Ra nge and Method Performance specificationshave not been established for this fluid. The test resultshould be correlated into the clinical context forinterpretation. UR OSMOLALITY [id number] 19:09:00* Test Item Value Reference Range Interpretation Comme [facility] UR OSMOLALITY RANDOM (test code = OSMOU) 426 mOsm/KG See_Comment INFCE Result Units: mOsmol/kg 24 hr : 300 - 900 Random: 50 - 1400 After 12hr fluid restriction: >850Performed At: [facility] [address] [id number] Lamar MD Ph:[phone] [Automated message] The system which generated this result transmitted reference range: (). The reference range was not used to interpret this result as normal/abnormal. GLUCOSE BEDSIDE [id number] 18:06:00* Test Item Value Reference Range Interpretation Comme [facility] GLUCOSE BEDSIDE TESTING (sugey t code = GLUBED) 206 mg/dL 70-110 H GLUCOSE BEDSIDE [id number] 14:45:00* Test Item Value Reference Range Interpretation Comme [facility] GLUCOSE BEDSIDE TESTING (sugey t code = GLUBED) 105 mg/dL 70-110 N THROMBOPLASTIN TIME [id number] 14:26:00* Test Item Value Reference Range Interpretation Comme nts THROMBOPLASTIN TIME PARTIAL (test code = PTT) 51.8 SECONDS 26-35 H OSMOLALITY [id number] 14:11:00* Test Item Value Reference Range Interpretation Comme nts OSMOLALITY SERUM (test code = OSMO) 312 280-301 H INFCE Result Uni ts: mOsmol/kgPerformed At: HD [facility] [address] [id number] Sergey Lamar MD Ph:[phone] GLUCOSE BEDSIDE [id number] 08:15:00* Test Item Value Reference Range Interpretation Comme nts GLUCOSE BEDSIDE TESTING (sugey t code = GLUBED) 71 mg/dL 70-110 N BASIC METABOLIC [id number] 06:54:00* Test Item Value Reference Range Interpretation [...] CA) 8.8 MG/DL 8.5-10.1 N THROMBOPLASTIN TIME [id number] 06:52:00* Test Item Value Reference Range Interpretation Comme nts THROMBOPLASTIN TIME PARTIAL (test code = PTT) 71.3 SECONDS 26-35 H CBC W/AUTO [id number] 05:23:00* Test Item Value Reference Range Interpretation [...] NRBC#) 0.0 K/mm3 0.00-0.01 N GLUCOSE BEDSIDE [id number] 20:54:00* Test Item Value Reference Range Interpretation Comme nts GLUCOSE BEDSIDE TESTING (sugey t code = GLUBED) 158 mg/dL 70-110 H GLUCOSE BEDSIDE [id number] 17:56:00* Test Item Value Reference Range Interpretation Comme nts GLUCOSE BEDSIDE TESTING (sugey t code = GLUBED) 133 mg/dL 70-110 H THROMBOPLASTIN TIME [id number] 13:50:00* Test Item Value Reference Range Interpretation Comme nts THROMBOPLASTIN TIME PARTIAL (test code = PTT) 55.1 SECONDS 26-35 H TROP-I HIGH [id number] 13:25:00* Test Item Value Reference Range Interpretation Comme [facility] TROP-I HIGH SENSITIVITY (test code = TROPIHS) [...] and URLs may varyby method. BASIC METABOLIC [id number] 13:15:00* Test Item Value Reference Range Interpretation [...] CA) 9.1 MG/DL 8.5-10.1 N GLUCOSE BEDSIDE [id number] 12:41:00* Test Item Value Reference Range Interpretation Comme [facility] GLUCOSE BEDSIDE TESTING (sugey t code = GLUBED) 106 mg/dL 70-110 N UR SODIUM [id number] 10:33:00* Test Item Value Reference Range Interpretation Comme nts UR SODIUM RANDOM (test code = LUZ) 81 MEQ/L The Reference Range and Method Performance specificationshave not been established for this fluid. The test resultshould be correlated into the clinical context forinterpretation. UR POTASSIUM [id number] 10:33:00* Test Item Value Reference Range Interpretation Comme nts UR POTASSIUM RANDOM (test code = KU) 19.7 MEQ/L The Reference Ra nge and Method Performance specificationshave not been established for this fluid. The test resultshould be correlated into the clinical context forinterpretation. GLUCOSE BEDSIDE [id number] 08:32:00* Test Item Value Reference Range Interpretation Comme nts GLUCOSE BEDSIDE TESTING (sugey t code = GLUBED) 237 mg/dL 70-110 H THROMBOPLASTIN TIME [id number] 05:38:00* Test Item Value Reference Range Interpretation Comme nts THROMBOPLASTIN TIME PARTIAL (test code = PTT) 51.8 SECONDS 26-35 H TROP-I HIGH [id number] 05:33:00* Test Item Value Reference Range Interpretation [...] and URLs may varyby method. COMPREHENSIVE METABOLIC [id number] 05:18:00* Test Item Value Reference Range Interpretation Comme nts SODIUM (test code = NA) 131 mmol/L 136-145 L POTASSIUM (test code = K) 5.9 mmol/L 3.4-5.0 RESULTS CALLED Charisma PERERA RNREAD BACK & CONFIRMED? YESBY [id number] 07/03/24 0516 CHLORIDE (test code = CL) [...] = LDL/HDL) 1.57 Ratio See_Comment N [Automated [employer] ge] The system which generated this result transmitted reference range: 1.48-3.22 Avg. The reference range was not used to interpret this result as normal/abnormal. CREATINE KINASE (CK)2024-07-03 05:18:00* Test Item Value Reference Range Interpretation Comme nts CREATINE KINASE (CK) (test c ode = CK) 182 Unit/L 21-215 N THYROID STIMULATING [id number] 05:18:00* Test Item Value Reference Range Interpretation Comme nts THYROID STIMULATING HORMONE (test code = TSH) 1.59 mcIU/ML 0.34-4.82 N [id number] 05:06:00* Test Item Value Reference Range Interpretation Comme nts GLYCOSYLATED HEMOGLOBIN (HA1 C) (test code = GLYHGB) 8.2 % A1C 4.8-6.0 H ESTIMATED AVERAGE GLUCOSE (t est code = EAG) 189 MG/DLest URIC [id number] 05:01:00* Test Item Value Reference Range Interpretation Comme nts URIC ACID (test code = URIC) 6.1 MG/DL 3.5-7.2 N CORTISOL [id number] 05:01:00* Test Item Value Reference Range Interpretation Comme nts CORTISOL AM (test code = CORTAM) CBC W/AUTO [id number] 04:39:00* Test Item Value Reference Range Interpretation [...] NRBC#) 0.0 K/mm3 0.00-0.01 N GLUCOSE BEDSIDE [id number] 02:40:00* Test Item Value Reference Range Interpretation Comme nts GLUCOSE BEDSIDE TESTING (sugey t code = GLUBED) 280 mg/dL 70-110 H CBC W/AUTO [id number] 00:31:00* Test Item Value Reference Range Interpretation [...] NOT ALREADY DONE WITHIN THE LAST 24 [id number] 20:50:00* Test Item Value Reference Range Interpretation Comme nts POTASSIUM (test code = K) 5.6 mmol/L 3.4-5.0 H NO VISIBLE HEMOL YSIS TROP-I HIGH [id number] 20:47:00* Test Item Value Reference Range Interpretation [...] results and URLs may varyby method. LACTIC [id number] 20:46:00* Test Item Value Reference Range Interpretation Comme nts LACTIC ACID (test code = LACT) 1.9 mmol/L 0.4-1.9 N PROTHROMBIN [id number] 20:38:00* Test Item Value Reference Range Interpretation [...] Infarction (to prevent recurrent infarct). THROMBOPLASTIN TIME [id number] 20:38:00* Test Item Value Reference Range Interpretation Comme nts THROMBOPLASTIN TIME PARTIAL (test code = PTT) 24.0 SECONDS 26-35 L BASIC METABOLIC [id number] 20:37:00* Test Item Value Reference Range Interpretation [...] code = CA) 9.2 MG/DL 8.5-10.1 N [id number] 16:41:00* Test Item Value Reference Range Interpretation Comme nts POTASSIUM (test code = K) 6.7 mmol/L 3.4-5.0 HH RESULTS CALLED Charisma PALACIOS BACK & CONFIRMED? YBY [id number] 07/02/24 1640NO VISIBLE HEMOLYSIS ACETONE QUAL [id number] 16:41:00* Test Item Value Reference Range Interpretation Comme nts ACETONE QUAL SERUM (test cod e = ACETNQL) NEGATIVE SCREEN NEG LACTIC [id number] 16:25:00* Test Item Value Reference Range Interpretation Comme nts LACTIC ACID (test code = LACT) 1.3 mmol/L 0.4-1.9 N VENOUS BLOOD [id number] 15:58:00* Test Item Value Reference Range Interpretation [...] SITEV) Other Site DESCRIPTION COVID 19 INHOUSE [id number] 14:36:00* Test Item Value Reference Range Interpretation Comme nts COVID 19 INHOUSE AG (test code = PQWBM24CQUD) NEGATIVE Negative 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 BASIC METABOLIC [id number] 14:29:00* Test Item Value Reference Range Interpretation Comme nts SODIUM (test code = NA) 128 mmol/L 136-145 L POTASSIUM (test code = K) TEST NOT PERFORMED mmol/L 3.4-5.0 UNABLE TO RESULT DUE HEMOLYSIS CALLED TO Terry cesar BACK & CONFIRMED? YESBY LPatLAB.B 07/02/24 1428 CHLORIDE (test code = CL) [...] CA) 9.4 MG/DL 8.5-10.1 N TROP-I HIGH [id number] 14:29:00* Test Item Value Reference Range Interpretation [...] and URLs may varyby method. DIABETES TESTING [id number] 17:12:48Ordered by an unspecified provider. [facility] [id number] 17:12:48 Ordered by an unspecified provider.[facility]DI[facility] [id number] 17:12:47Ordered by an unspecified provider.[facility] Hemoglobin A1C [id number] 20:08:00* Test Item Value Reference Range Interpretation Comme [facility] POCT HBA1C (test code = 4548-4) 9.0 % 4-6 A Lab Interpretation (test cod e = 53174-6) Abnormal [facility], [id number] 00:00:00* Test Item Value Reference Range Interpretation Comme nts CULTURE, URINE (test code = 630-4) SPECIMEN NUMBER: [id number] REFERRAL- REQUEST/[id number] 16:17:40Ordered by an unspecified provider. [facility] - [id number] 10:55:33 Ordered by an unspecified provider.[facility] 20[facility] 11:25:59* Test Item Value Reference Range Interpretation Comme [facility] POC-Glucose Meter (test code = 1538) 195 mg/dL 70-110 H : TESTED AT [facility] [address] [facility], [address]: Chief Of Production/Software Developer Consultant ID = [id number] for LAUREL SHARONA Lab Interpretation (test code = 84079-5) Abnormal [facility] [id number] 11:25:59* Test Item Value Reference Range Interpretation Comme nts POC-GLUCOSE METER (BEAKER) (test code = 1538) 195 mg/dL 70-110 H : TESTED AT [facility] [address] [facility], [address]: Chief Of Production/Software Developer Consultant ID = [id number] for BARRAGAN SHARONA VASCULAR DIAGRAM -[id number] 11:08:45Ordered by an unspecified provider.[facility] [id number] 07:48:04* Test Item Value Reference Range Interpretation Comme nts POC-GLUCOSE METER (BEAKER) (test code = 1538) 145 mg/dL 70-110 H : TESTED AT [facility] [address] [place], [address]: Chief Of Production/Software Developer Consultant ID = [id number] for SHARONA BARRAGAN BASIC METABOLIC [id number] 05:26:51* Test Item Value Reference Range Interpretation [...] GFR is not applicable for dialysis patients Chief Of Production ID - [id number] 05:26:51* Test Item Value Reference Range Interpretation Comme nts MAGNESIUM (BEAKER) (test cod e = 627) 1.8 mg/dL 1.6-2.6 Chief Of Production ID - ADMINCBC W/PLT COUNT & AUTO [id number] 04:50:57* Test Item Value Reference Range Interpretation [...] code = 2801) 0.70 % 0.00-1.00 POCT-GLUCOSE [id number] 20:54:53* Test Item Value Reference Range Interpretation Comme nts POC-GLUCOSE METER (BEAKER) (test code = 1538) 184 mg/dL 70-110 H : TESTED AT [address], [address]: Chief Of Production/Software Developer Consultant ID = [id number] for BERHANE MARTE POCT-GLUCOSE [id number] 17:30:33* Test Item Value Reference Range Interpretation Comme nts POC-GLUCOSE METER (BEAKER) (test code = 1538) 182 mg/dL 70-110 H : TESTED AT [address], [address]: Chief Of Production/Software Developer Consultant ID = [id number] for ANDREE MONSIVAIS POCT-GLUCOSE [id number] 12:22:50* Test Item Value Reference Range Interpretation Comme nts POC-GLUCOSE METER (BEAKER) (test code = 1538) 199 mg/dL 70-110 H : TESTED AT [address], [address]: Chief Of Production/Software Developer Consultant ID = [id number] for ANDREE MONSIVAIS POCT-GLUCOSE [id number] 08:16:34* Test Item Value Reference Range Interpretation Comme nts POC-GLUCOSE METER (BEAKER) (test code = 1538) 152 mg/dL 70-110 H : TESTED AT [address], [address]: Chief Of Production/Software Developer Consultant ID = [id number] for ANDREE MONSIVAIS BASIC METABOLIC [id number] 07:18:43* Test Item Value Reference Range Interpretation [...] GFR is not applicable for dialysis patients Chief Of Production ID - [id number] 07:18:43* Test Item Value Reference Range Interpretation Comme nts MAGNESIUM (BEAKER) (test cod e = 627) 1.5 mg/dL 1.6-2.6 L Chief Of Production ID - ADMINB-TYPE NATRIURETIC FACTOR (BNP)2023-08-03 05:45:39* Test Item Value Reference Range Interpretation Comme nts B-TYPE NATRIURETIC PEPTIDE ( BEAKER) (test code = 700) 379 pg/mL 0-100 H Chief Of Production ID - ADMINCBC W/PLT COUNT & AUTO [id number] 05:25:58* Test Item Value Reference Range Interpretation [...] code = 2801) 0.70 % 0.00-1.00 POCT-GLUCOSE [id number] 22:10:11* Test Item Value Reference Range Interpretation Comme nts POC-GLUCOSE METER (BEAKER) (test code = 1538) 175 mg/dL 70-110 H : TESTED AT [facility] [address] [facility], [address]: Chief Of Production/Software Developer Consultant ID = [id number] for ESTUARDO BERHANE POCT-GLUCOSE [id number] 17:28:46* Test Item Value Reference Range Interpretation Comme nts POC-GLUCOSE METER (BEAKER) (test code = 1538) 219 mg/dL 70-110 H : TESTED AT [facility] [address] [facility], [address]: Chief Of Production/Software Developer Consultant ID = [id number] for ANDREE MONSIVAIS XR chest 1 view portable / [id number] 08:28:13XR CHEST 1 VIEW PORTABLE / BEDSIDE INDICATION: pulmonary edema COMPARISON: Prior day's exam TECHNIQUE: Portable frontal view(s) of the chest. FINDINGS: Support Lines and Devices: A right IJ catheter was removed. Lungs and pleura: Unchanged airspace and pleural opacities. Nopneumothorax identified. Heart and mediastinum: Stable contours. Stable surgical changes. Additional findings: None.[facility] / [id number] 08:28:13 [facility] 1940 Sex: MXR CHEST [...] Signed By: Rivera Venegas08/02/2023 08:30 CDTWorkstation Name: [id number] 08:21:59* Test Item Value Reference Range Interpretation Comme [facility] POC-GLUCOSE METER (BEAKER) (test code = 1538) 143 mg/dL 70-110 H : TESTED AT [facility] [address] [place] [address], [address]: Chief Of Production/Software Developer Consultant ID = [id number] for ANDREE MONSIVAIS BASIC METABOLIC [id number] 05:35:09* Test Item Value Reference Range Interpretation [...] GFR is not applicable for dialysis patients Chief Of Production ID - [id number] 05:35:09* Test Item Value Reference Range Interpretation Comme nts MAGNESIUM (BEAKER) (test cod e = 627) 1.6 mg/dL 1.6-2.6 Chief Of Production ID - ADMINHEPATIC FUNCTION [id number] 05:35:09* Test Item Value Reference Range Interpretation [...] co de = 347) 14 U/L 6-55 Chief Of Production ID - ADMINLACTIC ACID, [id number] 05:09:55* Test Item Value Reference Range Interpretation Comme nts LACTATE BLOOD VENOUS (2) (BE SARAHI) (test code = 2872) 0.68 mmol/L 0.50-2.00 Chief Of Production ID - ADMINCBC W/PLT COUNT & AUTO [id number] 04:47:24* Test Item Value Reference Range Interpretation [...] code = 2801) 0.40 % 0.00-1.00 CALCIUM, [id number] 04:38:18* Test Item Value Reference Range Interpretation Comme nts CALCIUM IONIZED (BEAKER) (te st code = 698) 1.12 mmol/L 1.12-1.27 PH, BLOOD (BEAKER) (test cod e = 1810) 7.49 OXYGEN SATURATION, [id number] 04:37:48* Test Item Value Reference Range Interpretation Comme nts O2 SATURATION (MEASURED) (BE SARAHI) (test code = 1455) 74.5 % POCT-GLUCOSE [id number] 20:35:54* Test Item Value Reference Range Interpretation Comme nts POC-GLUCOSE METER (BEAKER) (test code = 1538) 171 mg/dL 70-110 H : TESTED AT [facility] [address] [place] [address], [address]: Chief Of Production/Software Developer Consultant ID = [id number] for Ericka Martinez BASIC METABOLIC [id number] 18:19:32* Test Item Value Reference Range Interpretation [...] GFR is not applicable for dialysis patients Chief Of Production ID Adrian BRUCE WBASIC METABOLIC [id number] 17:14:15* Test Item Value Reference Range Interpretation [...] GFR is not applicable for dialysis patients Chief Of Production JAGDISH BRUCE WPOCT-GLUCOSE [id number] 16:48:59* Test Item Value Reference Range Interpretation Comme nts POC-GLUCOSE METER (BEAKER) (test code = 1538) 168 mg/dL 70-110 H : TESTED AT [facility] [address] [facility], [address]: Chief Of Production/Software Developer Consultant ID = [id number] for Arthur (contract), Meredith LACTIC ACID, [id number] 12:20:58* Test Item Value Reference Range Interpretation Comme [facility] LACTATE BLOOD VENOUS (2) (BE SARAHI) (test code = 2872) 0.96 mmol/L 0.50-2.00 Chief Of Production ID - TEO WPOCT-GLUCOSE [id number] 11:40:24* Test Item Value Reference Range Interpretation Comme [facility] POC-GLUCOSE METER (BEAKER) (test code = 1538) 148 mg/dL 70-110 H : TESTED AT [address], [address]: Chief Of Production/Software Developer Consultant ID = [id number] for Arthur (contract)Meredith OXYGEN SATURATION, [id number] 08:00:31* Test Item Value Reference Range Interpretation Comme [facility] O2 SATURATION (MEASURED) (TRACE MCCLAIN) (test code = 1455) 57.1 % LACTIC ACID, [id number] 07:38:09* Test Item Value Reference Range Interpretation Comme [facility] LACTATE BLOOD VENOUS (2) (BE SARAHI) (test code = 2872) 0.99 mmol/L 0.50-2.00 Chief Of Production ID - ADMINXR CHEST 1 VIEW PORTABLE / [id number] 07:32:03 [facility] : 1940 Sex: MXR CHEST [...] Signed By: Rivera Venegas08/01/2023 07:35 CDTWorkstation Name: [id number] 07:25:40* Test Item Value Reference Range Interpretation Comme nts POC-GLUCOSE METER (BEAKER) (test code = 1538) 130 mg/dL 70-110 H : TESTED AT [facility] [address] [facility], [address]: Chief Of Production/Software Developer Consultant ID = [id number] for ONI MOY CALCIUM, [id number] 04:14:24* Test Item Value Reference Range Interpretation Comme nts CALCIUM IONIZED (BEAKER) (te st code = 698) 1.15 mmol/L 1.12-1.27 PH, BLOOD (BEAKER) (test cod e = 1810) 7.45 OXYGEN SATURATION, [id number] 04:14:03* Test Item Value Reference Range Interpretation Comme nts O2 SATURATION (MEASURED) (BE SARAHI) (test code = 1455) 57.8 % BASIC METABOLIC [id number] 03:19:07* Test Item Value Reference Range Interpretation [...] GFR is not applicable for dialysis patients Chief Of Production ID - [id number] 03:19:07* Test Item Value Reference Range Interpretation Comme nts MAGNESIUM (BEAKER) (test cod e = 627) 1.7 mg/dL 1.6-2.6 Chief Of Production ID - ADMINHEPATIC FUNCTION [id number] 03:19:07* Test Item Value Reference Range Interpretation [...] co de = 347) 16 U/L 6-55 Chief Of Production ID - ADMINCBC W/PLT COUNT & AUTO [id number] 02:49:35* Test Item Value Reference Range Interpretation [...] = 2801) 0.60 % 0.00-1.00 LACTIC ACID, [id number] 00:52:54* Test Item Value Reference Range Interpretation Comme [facility] LACTATE BLOOD VENOUS (2) (BEAKER) (test code = 2872) 0.62 mmol/L 0.50-2.00 Specimen slightl y hemolyzed Chief Of Production ID - ADMINPOCT-GLUCOSE [id number] 20:41:52* Test Item Value Reference Range Interpretation Comme [facility] POC-GLUCOSE METER (BEAKER) (test code = 1538) 193 mg/dL 70-110 H : TESTED AT [facility] [address] [facility], [address]: Chief Of Production/Software Developer Consultant ID = [id number] for Mandy Turcios LACTIC ACID, [id number] 18:29:40* Test Item Value Reference Range Interpretation Comme nts LACTATE BLOOD VENOUS (2) (BE SARAHI) (test code = 2872) 1.46 mmol/L 0.50-2.00 Chief Of Production ID - ADMINOXYGEN SATURATION, [id number] 18:04:16* Test Item Value Reference Range Interpretation Comme nts O2 SATURATION (MEASURED) (BE SARAHI) (test code = 1455) 83.0 % BASIC METABOLIC [id number] 16:51:41* Test Item Value Reference Range Interpretation [...] GFR is not applicable for dialysis patients Chief Of Production ID - ADMINPOCT-GLUCOSE [id number] 16:37:42* Test Item Value Reference Range Interpretation Comme nts POC-GLUCOSE METER (BEAKER) (test code = 1538) 150 mg/dL 70-110 H : TESTED AT [place] [id number] [facility], [address]: Chief Of Production/Software Developer Consultant ID = [id number] for Arthur (contract)Meredith PLASMA FREE [id number] 14:53:02* Test Item Value Reference Range Interpretation Comme nts HEMOGLOBIN PLASMA (BEAKER) ( test code = 1054) < mg/dl <=30.0 OXYGEN SATURATION, [id number] 13:41:36* Test Item Value Reference Range Interpretation Comme nts O2 SATURATION (MEASURED) (BE SARAHI) (test code = 1455) 60.6 % LACTIC ACID, [id number] 12:36:50* Test Item Value Reference Range Interpretation Comme nts LACTATE BLOOD VENOUS (2) (BE SARAHI) (test code = 2872) 1.51 mmol/L 0.50-2.00 Chief Of Production ID - ADMINPOCT-GLUCOSE [id number] 11:18:00* Test Item Value Reference Range Interpretation Comme nts POC-GLUCOSE METER (BEAKER) (test code = 1538) 179 mg/dL 70-110 H : TESTED AT [place] [id number] [facility], [address]: Chief Of Production/Software Developer Consultant ID = [id number] for ONI MOY [id number] 11:06:02* Test Item Value Reference Range Interpretation Comme nts HAPTOGLOBIN (BEAKER) (test c ode = 366) 68 mg/dL 14-258 Chief Of Production ID - ADMINLACTATE DEHYDROGENASE (LDH)2023-07-31 10:02:17* Test Item Value Reference Range Interpretation Comme nts LACTATE DEHYDROGENASE (BEAKE R) (test code = 635) 381 U/L 125-220 H Chief Of Production ID - ADMINXR CHEST 1 VIEW PORTABLE / [id number] 07:41:26 [facility] : 1940 Sex: MXR CHEST [...] Signed By: Rivera Venegas07/31/2023 07:43 CDTWorkstation Name: [id number] 07:12:23* Test Item Value Reference Range Interpretation Comme [facility] POC-GLUCOSE METER (KYUNG) (test code = 1538) 149 mg/dL 70-110 H : TESTED AT [facility] [address] [facility], [address]: Chief Of Production/Software Developer Consultant ID = [id number] for ONI MOY LACTIC ACID, [id number] 07:01:36* Test Item Value Reference Range Interpretation Comme nts LACTATE BLOOD VENOUS (2) (TRACE MCCLAIN) (test code = 2872) 0.68 mmol/L 0.50-2.00 Chief Of Production ID - ADMINECG 12 [id number] 06:21:36Ventricular Rate 92 BPMAtrial Rate 92 BPMQRS Duration 92 msQ-T Interval 364 msQTC Calculation(Bazett) 450 msR [place] -11 degreesT [place] 123 degrees Normal sinus rhythmInferior infarct , age undeterminedAbnormal ECGWhen compared with ECG of 29-JUL-2023 02:05,Sinus rhythm has replaced Ectopic atrial rhythmQRS duration has decreasedST no longer elevated in Inferior leadsST now depressed in Anterior leadsNonspecific T wave abnormality has replaced inverted T waves in Inferior leadsNonspecific T wave ab normality, worse in Anterolateral leadsConfirmed by MD RHIANNON, SUDHAKAR Guevara ([id number]) on 07/31/2023 6:21:32 [facility] 2023-07-31 04:27:02* Test Item Value Reference Range Interpretation Comme nts LACTATE BLOOD VENOUS (2) (TRACE MCCLAIN) (test code = 2872) 0.60 mmol/L 0.50-2.00 Chief Of Production ID - ADMINOperator ID - ADMINHEPATIC FUNCTION [id number] 03:58:22 * Test Item Value Reference Range [...] 22 U/L 6-55 Specimen sligh tly hemolyzed Chief Of Production ID - [id number] 03:58:17* Test Item Value Reference Range Interpretation Comme nts MAGNESIUM (BEAKER) (test code = 627) 1.9 mg/dL 1.6-2.6 Specimen sligh tly hemolyzed Chief Of Production ID - ADMINBASIC METABOLIC [id number] 03:58:17* Test Item Value Reference Range Interpretation [...] GFR is not applicable for dialysis patients Chief Of Production ID - ADMINCALCIUM, [id number] 03:47:17* Test Item Value Reference Range Interpretation Comme nts CALCIUM IONIZED (BEAKER) (te st code = 698) 1.12 mmol/L 1.12-1.27 PH, BLOOD (BEAKER) (test cod e = 1810) 7.46 OXYGEN SATURATION, [id number] 03:43:14* Test Item Value Reference Range Interpretation Comme nts O2 SATURATION (MEASURED) (BE SARAHI) (test code = 1455) 94.1 % CBC W/PLT COUNT & AUTO [id number] 03:23:38* Test Item Value Reference Range Interpretation [...] = 2801) 0.60 % 0.00-1.00 BLOOD GAS, [id number] 23:43:56* Test Item Value Reference Range Interpretation [...] (BEAKER) (test code = 1819) 40.0 POCT-GLUCOSE [id number] 20:47:01* Test Item Value Reference Range Interpretation Comme nts POC-GLUCOSE METER (BEAKER) (test code = 1538) 192 mg/dL 70-110 H : TESTED AT [facility] [address] [facility], [address]: Chief Of Production/Software Developer Consultant ID = [id number] for Mandy Turcios POCT-GLUCOSE [id number] 16:29:15* Test Item Value Reference Range Interpretation Comme nts POC-GLUCOSE METER (BEAKER) (test code = 1538) 170 mg/dL 70-110 H : TESTED AT [facility] [address] [facility], [address]: Chief Of Production/Software Developer Consultant ID = [id number] for Kaylee Osborne BASIC METABOLIC [id number] 15:43:11* Test Item Value Reference Range Interpretation [...] GFR is not applicable for dialysis patients Chief Of Production ID - ADMINLactic Acid, [id number] 15:37:53* Test Item Value Reference Range Interpretation Comme nts Lactate, Art (test code = 2874) 1 mmol/L 0.5-2.0 GABBI (test code = GABBI) Chief Of Production ID - ADMIN Lab Interpretation (test code = 55222-8) Normal [facility]LA[facility], [id number] 15:37:53* Test Item Value Reference Range Interpretation Comme nts LACTATE BLOOD ARTERIAL (2) (BEAKER) (test code = 2874) 1.0 mmol/L 0.5-2.0 Chief Of Production ID - ADMINOXYGEN SATURATION, [id number] 15:32:50* Test Item Value Reference Range Interpretation Comme nts O2 SATURATION (MEASURED) (BE SARAHI) (test code = 1455) 91.2 % US renal [id number] 15:31:50EXAM: Renal UltrasoundINDICATION: Rule out obstruction cori [...] noted. No follow-up required Bladder: Decompressed, limiting evaluation.[facility] US RENAL [id number] 15:31:50 [facility] : 1940 Sex: MEXAM: Renal [...] By: Castillo Diaz 07/30/2023 15:33 CDTWorkstation Name: [id number] (HEMOGRAM ONLY)2023-07-30 15:29:47* Test Item Value Reference [...] code = 413) 0 /100 WBC 0-0 [id number] 11:52:26* Test Item Value Reference Range Interpretation Comme nts HAPTOGLOBIN (BEAKER) (test c ode = 366) < mg/dL 14-258 L Chief Of Production ID - ADMINPOCT-GLUCOSE [id number] 11:23:05* Test Item Value Reference Range Interpretation Comme nts POC-GLUCOSE METER (BEAKER) (test code = 1538) 198 mg/dL 70-110 H : TESTED AT [facility] [address] [facility], [address]: Chief Of Production/Software Developer Consultant ID = [id number] for Kaylee Osborne HEMOGLOBIN [id number] 09:53:15* Test Item Value Reference Range Interpretation Comme nts HEMOGLOBIN A1C ELECTROPHORESIS (KYUNG) (test code = 3811) 7.0 % See_Comment H [Automated me ssage] The system which generated this result transmitted reference range: <=5.6%. The reference range was not used to interpret this result as normal/abnormal. "The A1c is measured using a NGSP-certified method. HbA1c value equal to or greater than 6.5% as the diagnosis cutoff for diabetes. An HbA1c value of 5.7- 6.4% indicates increased risk for diabetes (prediabetes)."Chief Of Production ID - ADM PLASMA FREE [id number] 09:33:12* Test Item Value Reference Range Interpretation Comme nts HEMOGLOBIN PLASMA (BEAKER) ( test code = 1054) 40.0 mg/dl <=30.0 H LACTATE DEHYDROGENASE (LDH)2023-07-30 09:31:30* Test Item Value Reference Range Interpretation Comme nts LACTATE DEHYDROGENASE (BEAKE R) (test code = 635) 420 U/L 125-220 H Chief Of Production ID - [id number] 09:14:33* Test Item Value Reference Range Interpretation Comme nts PARTIAL THROMBOPLASTIN TIME (BEAKER) (test code = 760) 34.0 seconds 22.5-36.0 XR CHEST 1 VIEW PORTABLE / [id number] 08:59:34 [facility] : 1940 Sex: MChest, one [...] Signed By: Kale Ferris07/30/2023 09:01 CDTWorkstation Name: [id number] 07:47:33* Test Item Value Reference Range Interpretation Comme nts POC-GLUCOSE METER (Best Five Reviewed) (test code = 1538) 177 mg/dL 70-110 H : TESTED AT [facility] [address] [place], [address]: Chief Of Production/Software Developer Consultant ID = [id number] for Kayele Osborne PLASMA FREE [id number] 06:46:59* Test Item Value Reference Range Interpretation Comme nts HEMOGLOBIN PLASMA (BEAKER) ( test code = 1054) 30.0 mg/dl <=30.0 HIGH SENSITIVITY TROPONIN [id number] 03:39:24* Test Item Value Reference Range Interpretation Comme nts HIGH SENSITIVITY TROPONIN I (test code = 0373945) 38371 pg/ml <=35 HH Chief Of Production ID - ADMINThe RECYCLING SORTER STAT High Sensitivity Troponin-I results should be used in conjunction with other diagnostic information such as ECG, clinical observations and information, and patient symptoms to aid in the diagnosis of OR.Chief Of Production ID - [id number] 03:36:55* Test Item Value Reference Range Interpretation Comme nts HAPTOGLOBIN (BEAKER) (test c ode = 366) < mg/dL 14-258 L Chief Of Production ID - ADMINUrinalysis w/Zpwtazcfgvn9796-94-38 03:35:28* Test Item Value Reference Range Interpretation Comme nts Color, UA (test code = 5778-6) Brown Clarity, UA (test code = 5767-9) Cloudy Specific [place], UA (test code = 5811-5) 1.042 1.001-1.035 H pH, UA (test code = 5803-2) 6 5.0-8.0 Protein, UA (test code = 91788-4) 300 mg/dL Negative A Glucose, UA (test code = 365) 30 mg/dL Negative A Ketones, UA (test code = 2514-8) Negative Negative Bilirubin, UA (test code = 74650-3) Negative Negative Blood, UA (test code = 08409-0) Large Negative A Nitrite, UA (test code = 5802-4) Negative Negative Leukocytes, UA (test code = 5799-2) Small Negative A Urobilinogen, UA (test code = 68012-3) 0.2 0.2-1.0 RBC, UA (test code = 32561-1) See_Comment [Automated message] The system which generated [...] Rare Squam Epithel, UA (test code = 06314-3) 2 See_Comment [Automated message] The system which generated this result transmitted reference range: /HPF. The reference range was not used to interpret this result as normal/abnormal. Yeast (test code = 77490-7) Few Specimen Source (test code = 2795) Urine, Schreiber GABBI (test code = GABBI) Chief Of Production ID - tech Lab Interpretation (test code = 97409-8) [facility]normal [facility]/ [id number] 03:35:28* Test Item Value Reference Range Interpretation [...] = 1585) Few SOURCE(BEAKER) (test code = 8395) Urine, Schreiber Chief Of Production ID - techBASIC METABOLIC [id number] 03:09:18* Test Item Value Reference Range Interpretation [...] GFR is not applicable for dialysis patients Chief Of Production ID - [id number] 03:09:18* Test Item Value Reference Range Interpretation Comme nts MAGNESIUM (BEAKER) (test cod e = 627) 2.2 mg/dL 1.6-2.6 Chief Of Production ID - ADMINHEPATIC FUNCTION [id number] 03:09:18* Test Item Value Reference Range Interpretation [...] co de = 347) 22 U/L 6-55 Chief Of Production ID - ADMINLACTATE DEHYDROGENASE (LDH)2023-07-30 03:09:18* Test Item Value Reference Range Interpretation Comme nts LACTATE DEHYDROGENASE (BEAKE R) (test code = 635) 366 U/L 125-220 H Chief Of Production ID - [id number] 02:58:31* Test Item Value Reference Range Interpretation Comme nts PARTIAL THROMBOPLASTIN TIME (BEAKER) (test code = 760) 38.1 seconds 22.5-36.0 H OXYGEN SATURATION, [id number] 02:44:28* Test Item Value Reference Range Interpretation Comme nts O2 SATURATION (MEASURED) (BE SARAHI) (test code = 1455) 86.5 % LACTIC ACID, [id number] 02:43:12* Test Item Value Reference Range Interpretation Comme nts LACTATE BLOOD ARTERIAL (2) (BEAKER) (test code = 2874) 0.8 mmol/L 0.5-2.0 Chief Of Production ID - ADMINCALCIUM, [id number] 02:32:55* Test Item Value Reference Range Interpretation Comme nts CALCIUM IONIZED (BEAKER) (te st code = 698) 1.04 mmol/L 1.12-1.27 L PH, BLOOD (BEAKER) (test cod e = 1810) 7.46 CBC W/PLT COUNT & AUTO [id number] 02:32:10* Test Item Value Reference Range Interpretation [...] = 2801) 0.20 % 0.00-1.00 Blood gas, [id number] 02:29:37* Test Item Value Reference Range Interpretation [...] 28.0 Lab Interpretation (test cod e = 38530-8) Abnormal [facility] HospitalBLO[facility], [id number] 02:29:37* Test Item Value Reference Range Interpretation [...] code = 1819) 28.0 HIGH SENSITIVITY TROPONIN [id number] 22:45:35* Test Item Value Reference Range Interpretation Comme nts HIGH SENSITIVITY TROPONIN I (test code = 6512758) 25049 pg/ml <=35 HH Chief Of Production ID - ADMINThe RECYCLING SORTER STAT High Sensitivity Troponin-I results should be used in conjunction with other diagnostic information such as ECG, clinical observations and information, and patient symptoms to aid in the diagnosis of OR.Chief Of Production ID - [id number] 22:24:04* Test Item Value Reference Range Interpretation Comme nts HAPTOGLOBIN (BEAKER) (test c ode = 366) < mg/dL 14-258 L Chief Of Production ID - ADMINLACTATE DEHYDROGENASE (LDH)2023-07-29 22:21:17* Test Item Value Reference Range Interpretation Comme nts LACTATE DEHYDROGENASE (BEAKE R) (test code = 635) 380 U/L 125-220 H Chief Of Production ID - [id number] 22:15:37* Test Item Value Reference Range Interpretation Comme nts PARTIAL THROMBOPLASTIN TIME (BEAKER) (test code = 760) 30.9 seconds 22.5-36.0 PLASMA FREE [id number] 22:12:21* Test Item Value Reference Range Interpretation Comme nts HEMOGLOBIN PLASMA (BEAKER) ( test code = 1054) 40.0 mg/dl <=30.0 H LACTIC ACID, [id number] 22:11:36* Test Item Value Reference Range Interpretation Comme nts LACTATE BLOOD ARTERIAL (2) (BEAKER) (test code = 2874) 1.4 mmol/L 0.5-2.0 Chief Of Production ID - ADMINPOCT-GLUCOSE [id number] 18:12:58* Test Item Value Reference Range Interpretation Comme nts POC-GLUCOSE METER (BEAKER) (test code = 1538) 309 mg/dL 70-110 H : TESTED AT [facility] [address] [facility], [address]: Chief Of Production/Software Developer Consultant ID = [id number] for Lashawn Rubalcava [id number] 18:08:00* Test Item Value Reference Range Interpretation Comme nts MAGNESIUM (BEAKER) (test cod e = 627) 1.6 mg/dL 1.6-2.6 Chief Of Production ID - [id number] 18:04:22* Test Item Value Reference Range Interpretation Comme nts PARTIAL THROMBOPLASTIN TIME (KYUNG) (test code = 760) 32.0 seconds 22.5-36.0 XR CHEST 1 VIEW PORTABLE / [id number] 18:04:09 [facility] : 1940 Sex: MEXAM: XR CHEST 1 VIEWDATE: 07/29/2023 5:44 PM INDICATION: s/p RIJ CVCCOMPARISON: Chest x-ray 07/29/2023 [id number] hoursTECHNIQUE: AP chest.FINDINGS/IMPRESSION:Lines, tubes and hardware: Right [...] Signed By: Markus Moss07/29/2023 18:06 CDTWorkstation Name: [id number] ACID, ARTERIAL 2023-07-29 18:03:41* Test Item Value Reference Range Interpretation Comme nts LACTATE BLOOD ARTERIAL (2) (KYUNG) (test code = 2874) 2.3 mmol/L 0.5-2.0 H Specimen mode rately hemolyzed Chief Of Production ID - [id number] TIME/[id number] 18:03:21* Test Item Value Reference Range Interpretation Comme nts PROTIME (BEAKER) (test code = 759) 14.1 seconds 11.9-14.2 INR (BEAKER) (test code = 370) 1.09 <=5.90 RECOMMENDED COUMADIN/WARFARIN INR THERAPY RANGESSTANDARD DOSE: 2.0 - 3.0 Includes: PROPHYLAXIS for venous thrombosis, systemic embolization; TREATMENT for venous thrombosis and/or pulmonary embolus.HIGH RISK: Target INR is 2.5-3.5 for patients with mechanical heart valves.OXYGEN SATURATION, [id number] 17:59:40* Test Item Value Reference Range Interpretation [...] 413) 0 /100 WBC 0-0 BLOOD GAS, [id number] 16:49:30* Test Item Value Reference Range Interpretation [...] code = 1819) 28.0 HIGH SENSITIVITY TROPONIN [id number] 16:43:10* Test Item Value Reference Range Interpretation Comme nts HIGH SENSITIVITY TROPONIN I (test code = 8038550) 83701 pg/ml <=35 HH Chief Of Production ID - ADMINThe RECYCLING SORTER STAT High Sensitivity Troponin-I results should be used in conjunction with other diagnostic information such as ECG, clinical observations and information, and patient symptoms to aid in the diagnosis of OR.Chief Of Production ID - ADMINURINALYSIS W/ [id number] 16:37:50* Test Item Value Reference Range Interpretation [...] SOURCE(BEAKER) (test code = 2795) Urine, Schreiber Chief Of Production ID - techOperator ID - [id number] 16:23:32* Test Item Value Reference Range Interpretation Comme nts HAPTOGLOBIN (BEAKER) (test c ode = 366) < mg/dL 14-258 L Chief Of Production ID - ADMINBASIC METABOLIC [id number] 16:18:03* Test Item Value Reference Range Interpretation [...] GFR is not applicable for dialysis patients Chief Of Production ID - ADMINLACTATE DEHYDROGENASE (LDH)2023-07-29 16:18:03* Test Item Value Reference Range Interpretation Comme nts LACTATE DEHYDROGENASE (BREN R) (test code = 635) 357 U/L 125-220 H Chief Of Production ID - ADMINPLASMA FREE [id number] 16:11:01* Test Item Value Reference Range Interpretation Comme nts HEMOGLOBIN PLASMA (KYUNG) ( test code = 1054) < mg/dl <=30.0 ECHO W CONTRAST & [id number] 15:20:10Transthoracic Echocardiography Report (TTE) Demographics Patient Name AMAURY Date of Study 07/29/2023 NAVJOT Gender Male Visit Number [id number] Race Unknown Room Number 6101 Number Date of 1940 Referring Physician Josefa Mancia Age 82 year(s) Senior Net Architect Katya Benites [facility] Director Diabetes Domo An Interpreting Sudhakar Matos Physician MDProcedure Type of Study TTE procedure:2DECHO W DOPPLER(CW/PW/COLOR) (STAT)Indications:Acute Chest Pain/ Suspected CAD.Clinical HistoryHGB 10.2HCT 30.6 %DMHTNBYPASS AORTO CORONARY 03/12/2015NGIOGRAM/CORONARY/LEFT CATH 07/28/2023IMPELLA CPContrast Medium: Definity.Height: 69 inches Weight: 80.29 kg (177 lbs) BSA: 1.96 m^2 BMI: 26.14 kg/m^2HR: 110 bpm BP: 123/83 mmHg Summary The left ventricle chamber size(by vol index) is normal (male - LVED vol - 34-74ml/m2). Mild concentric LV hypertrophy. All of theLV segments are aslidrho-uz-mnzoyc hypokinetic . Estimated LVEF by qualitative assessment is moderately reduced (30-34%) . Estimation of LV systolic function may be unreliable in the setting of mechanical circulatory support. The Impella LVAD inflow zone position is suboptimal, too far into the LV . Estimated peak systolic PA pressure is 35-40 mmHg (borderline criteria for pulmonary hypertension). The estimated RA pressure by IVC dynamics 16-20mmHg . Signature FindingsT echnical Quality: Technically adequate exam. Left Ventricle The left ventricle chamber size (by volindex) is normal (male - LVED vol - 34-74ml/m2). Mild concentric LV hypertrophy. All of the LV segments are tqoocfyr-zq-ruundv hypokinetic . Estimated LVEF by qualitative assessment [...] depressed . Right Atrium Right atrium dilated. Aortic Valve Moderate AoV cusp thickening. Zjbh-xg-uwdkrkvm AoV cusp calcification. Mitral Valve Mild MV leaflet thickening. Mild mitral annular calcification. Severe mitral regurgitation. Tricuspid Valve Mild tricuspid regurgitation. Estimated peak systolic PA pressure is 35-40 mmHg (borderline criteriafor pulmonary hypertension) . Pulmonic Valve Normal PV structure and function by limited views andDoppler. Aorta Aortic root size (SInus of Valsalva diameter) is normal . Pericardium No evidence ofpericardial effusion. IVC/SVC/PA/PV/Pleural The estimated RA pressure by IVC dynamics 16-20mmHg . [facility] Circ Support An Impella CP percutaneous LVAD is present.The Impella LVAD inflow zone position isapproximately 5.3 cm from aortic annulus . The Impella LVAD inflow zone position is suboptimal, toofar into the LV .Chambers/Structures Left Atrium LA Volume: 86.13 ml LA Area: 25.8 cm^2 LA Vol. Index: 44 ml/m^2 Left Ventricle LVIDd: 4.4 cm LVEDV:87.9 ml LV Septum Diastolic: 1.34 cm LV Septum Systolic: 1.37 cm LV PW Diastolic: 1.14 cm LV PW Systolic: 1.25 cm LVEDV Saxena's:96.4 ml LVEDVI: 49 ml/m^2 LVESV Saxena's:63.23 ml LVESVI: 32 ml/m^2 LVEF Saxena's: 34.4 % LVOT Diameter: 2.15 cm Right Ventricle RVOT VTI: 11.73 cmDoppler/Quantitative Measurements LVOT Peak Velocity: 0.56 m/s Peak Gradient: 1.26 mmHg Mean Velocity: 0.35 m/s Mean Gradient: 0.6 mmHg LVOT Diameter: 2.15 cm LVOT VTI: 7.6 cm LVOT Area: 3.63 cm^2 LVOT SV:27.58 ml LVOT CO: 3.03 l/min LVOT CI: 1.55 l/min/m^2 Tricuspid Valve TR Velocity: 2.2 m/s TR Gradient: 19.3 mmHg [facility] CenterCreatinine, random [id number] 13:34:03* Test Item Value Reference Range Interpretation Comme nts Creatinine, Ur (test code = 2161-8) 28.2 mg/dL GABBI (test code = GABBI) Reference Range: No NormalsOperator ID - ADMIN [facility] [id number] 13:34:03* Test Item Value Reference Range Interpretation Comme nts Sodium Urine (test code = 2955-3) 82 meq/L GABBI (test code = GABBI) Reference Range: No NormalsOperator ID - ADMIN [facility] CenterUrea Nitrogen, random [id number] 13:34:03* Test Item Value Reference Range Interpretation Comme nts Urea Nitrogen, Ur (test code = 3095-7) 360 mg/dL GABBI (test code = GABBI) Reference Range: No NormalsOperator ID - ADMIN [facility] CenterCREATININE, RANDOM [id number] 13:34:03* Test Item Value Reference Range Interpretation Comme nts CREATININE URINE (BEAKER) (t est code = 375) 28.2 mg/dL Reference Range: No NormalsOperator ID - ADMINSODIUM, RANDOM [id number] 13:34:03* Test Item Value Reference Range Interpretation Comme nts SODIUM URINE (BEAKER) (test code = 243) 82 meq/L Reference Range: No NormalsOperator ID - ADMINUREA NITROGEN, RANDOM URINE 2023-07-29 13:34:03* Test Item Value Reference Range Interpretation Comme nts UREA NITROGEN URINE (BEAKER) (test code = 538) 360 mg/dL Reference Range: No NormalsOperator ID - [id number] 12:33:16* Test Item Value Reference Range Interpretation Comme nts PARTIAL THROMBOPLASTIN TIME (BEAKER) (test code = 760) 45.4 seconds 22.5-36.0 H POCT-GLUCOSE [id number] 12:26:49* Test Item Value Reference Range Interpretation Comme nts POC-GLUCOSE METER (BEAKER) (test code = 1538) 344 mg/dL 70-110 H : TESTED AT [facility] [address], [address]: Chief Of Production/Software Developer Consultant ID = [id number] for Lashawn Rubalcava HEMOGLOBIN [id number] 12:18:47* Test Item Value Reference Range Interpretation Comme nts HEMOGLOBIN A1C ELECTROPHORESIS (TRACEAKER) (test code = 3811) 6.8 % See_Comment H [Automated me ssage] The system which generated this result transmitted reference range: <=5.6%. The reference range was not used to interpret this result as normal/abnormal. "The A1c is measured using a NGSP-certified method. HbA1c value equal to or greater than 6.5% as the diagnosis cutoff for diabetes. An HbA1c value of 5.7- 6.4% indicates increased risk for diabetes (prediabetes)."Chief Of Production ID - ADM PLASMA FREE [id number] 11:38:50* Test Item Value Reference Range Interpretation Comme nts HEMOGLOBIN PLASMA (BEAKER) ( test code = 1054) 40.0 mg/dl <=30.0 H LACTATE DEHYDROGENASE (LDH)2023-07-29 11:07:29* Test Item Value Reference Range Interpretation Comme nts LACTATE DEHYDROGENASE (BEAKE R) (test code = 635) 354 U/L 125-220 H Chief Of Production ID - ADMINOperator ID - [id number] 09:59:02* Test Item Value Reference Range Interpretation Comme nts HAPTOGLOBIN (BEAKER) (test c ode = 366) 63 mg/dL 14-258 Chief Of Production ID - ADMINXR CHEST 1 VIEW PORTABLE / [id number] 09:34:27 [facility] : 1940 Sex: MEXAM: XR [...] Signed By: Markus Moss07/29/2023 09:36 CDTWorkstation Name: [id number] without [id number] 09:22:23 * Test Item Value Reference Range Interpretation Comme nts Color, UA (test code = 5778-6) Brown Clarity, UA (test code = 5767-9) Cloudy Specific [place], UA (test code = 5811-5) 1.047 1.001-1.035 H pH, UA (test code = 5803-2) 6 5.0-8.0 Protein, UA (test code = 95720-3) 100 mg/dL Negative A Glucose, UA (test code = 365) >1000 mg/dL Negative A Ketones, UA (test code = 2514-8) Negative Negative Bilirubin, UA (test code = 97522-7) Negative Negative Blood, UA (test code = 43381-9) Large Negative A Nitrite, UA (test code = 5802-4) Negative Negative Leukocytes, UA (test code = 5799-2) Small Negative A Urobilinogen, UA (test code = 36966-5) 0.2 0.2-1.0 Specimen Source (test code = 2795) GABBI (test code = GABBI) Chief Of Production ID - tech Lab Interpretation (test code = 97593-0) Abnormal [facility] WITHOUT [id number] 09:22:23* Test Item Value Reference Range Interpretation [...] 0.2 0.2-1.0 SOURCE(BEAKER) (test code = 2795) Chief Of Production ID - techBASIC METABOLIC [id number] 09:16:17* Test Item Value Reference Range Interpretation [...] GFR is not applicable for dialysis patients Chief Of Production ID - ADMINHIGH SENSITIVITY TROPONIN [id number] 08:21:51* Test Item Value Reference Range Interpretation Comme [facility] HIGH SENSITIVITY TROPONIN I (test code = 7105379) 10393 pg/ml <=35 HH Chief Of Production ID - ADMINThe RECYCLING SORTER STAT High Sensitivity Troponin-I results should be used in conjunction with other diagnostic information such as ECG, clinical observations and information, and patient symptoms to aid in the diagnosis of OR.Chief Of Production ID - [id number] 07:25:21* Test Item Value Reference Range Interpretation Comme nts PARTIAL THROMBOPLASTIN TIME (KYUNG) (test code = 760) > seconds 22.5-36.0 PLASMA FREE [id number] 06:49:33* Test Item Value Reference Range Interpretation Comme nts HEMOGLOBIN PLASMA (KYUNG) ( test code = 1054) 30.0 mg/dl <=30.0 POCT-GLUCOSE [id number] 06:23:16* Test Item Value Reference Range Interpretation Comme nts POC-GLUCOSE METER (TRACEAKER) (test code = 1538) 349 mg/dL 70-110 H : TESTED AT [facility] [address], [address]: Chief Of Production/Software Developer Consultant ID = [id number] for Sachin Conde LACTATE DEHYDROGENASE (LDH)2023-07-29 06:07:35* Test Item Value Reference Range Interpretation Comme nts LACTATE DEHYDROGENASE (BEAKE R) (test code = 635) 290 U/L 125-220 H Chief Of Production ID - ADMINPT/[id number] 06:00:39* Test Item Value Reference Range Interpretation [...] is 2.5-3.5 for patients with mechanical heart valves.[id number] 05:50:23* Test Item Value Reference Range Interpretation Comme nts HAPTOGLOBIN (BEAKER) (test c ode = 366) 112 mg/dL 14-258 Chief Of Production ID - ADMINLACTATE DEHYDROGENASE (LDH)2023-07-29 05:49:46* Test Item Value Reference Range Interpretation Comme nts LACTATE DEHYDROGENASE (BEAKE R) (test code = 635) 216 U/L 125-220 Chief Of Production ID - ADMINPROTHROMBIN TIME/[id number] 05:42:23* Test Item Value Reference Range Interpretation [...] = 2801) 0.40 % 0.00-1.00 URINALYSIS W/ [id number] 03:58:48* Test Item Value Reference Range Interpretation [...] SOURCE(BEAKER) (test code = 2795) Urine, Schreiber Chief Of Production ID - techHIGH SENSITIVITY TROPONIN [id number] 03:13:59* Test Item Value Reference Range Interpretation Comme nts HIGH SENSITIVITY TROPONIN I (test code = 1527434) 2027 pg/ml <=35 HH Chief Of Production ID - ADMINThe RECYCLING SORTER STAT High Sensitivity Troponin-I results should be used in conjunction with other diagnostic information such as ECG, clinical observations and information, and patient symptoms to aid in the diagnosis of OR.CBC W/PLT COUNT & AUTO [id number] 02:53:26* Test Item Value Reference Range Interpretation [...] code = 700) 582 pg/mL 0-100 H Chief Of Production ID - ADMINBASIC METABOLIC [id number] 02:47:32* Test Item Value Reference Range Interpretation [...] GFR is not applicable for dialysis patients Chief Of Production ID - [id number] 02:47:32* Test Item Value Reference Range Interpretation Comme nts MAGNESIUM (BEAKER) (test cod e = 627) 1.4 mg/dL 1.6-2.6 L Chief Of Production ID - ADMINHEPATIC FUNCTION [id number] 02:47:32* Test Item Value Reference Range Interpretation [...] co de = 347) 19 U/L 6-55 Chief Of Production ID - ADMINPOCT-GLUCOSE [id number] 02:29:55* Test Item Value Reference Range Interpretation Comme nts POC-GLUCOSE METER (BEAKER) (test code = 1538) 390 mg/dL 70-110 H : TESTED AT [address], [address]: Chief Of Production/Software Developer Consultant ID = [id number] for Sachin Conde POC ACTIVATED CLOTTING [id number] 01:43:04* Test Item Value Reference Range Interpretation Comme nts Activated Clotting Time (test code = 3184-9) 304 sec : 74-137 se conds, Baseline: TESTED AT [address], [address]: Chief Of Production/Software Developer Consultant ID = [id number] for Batista (contract), Leyla [facility] HospitalPOCT-[id number] 01:43:04* Test Item Value Reference Range Interpretation Comme nts ACTIVATED CLOTTING TIME (BEAKER) (test code = 441) 233 sec : 74-137 seconds , Baseline: TESTED AT [address], [address]: Chief Of Production/Software Developer Consultant ID = [id number] for Batista (contract), Leyla AYHC-[id number] 01:42:19* Test Item Value Reference Range Interpretation Comme nts ACTIVATED CLOTTING TIME (BEAKER) (test code = 441) 250 sec : 74-137 seconds , Baseline: TESTED AT [address], [address]: Chief Of Production/Software Developer Consultant ID = [id number] for Batista (contract), Leyla HEMOGLOBIN [id number] 00:00:00* Test Item Value Reference Range Interpretation Comme nts A1C (test code = 4548-4) 7.8 Notes Date/Time Note Provider Source 2024-07-17 14:49:00 [id number] [address] PATIENT NAME: NAVJOT DAS ADMIT DATE: 07/08/24 ACCOUNT NO: [id number] ROOM NO: P.0905 AGE: 83 REPORT TYPE: eECHOCARDIOGRAM REPORT SEX: M ADMITTING PHYSICIAN: Yuko Henson MD ATTENDING PHYSICIAN: Olnaveed Henson MD *[facility]* [address] [place] [address] Transthoracic Echocardiogram Patient: Navjot Das Study Date: 07/11/2024 BP: URN: [id number] Location: : 1940 Age: 83 Gender: M Height: 69 in / 175.3 cm Weight: 142 lb / 64.4 kg BMI/BSA: 21 kg/m 2 / 1.77 m 2 *Ordering Physician: * Yesenia Parada *Fellow: * Florentino Collazo MD *Interpreting Physician: * Hakeem Rowland MD *Senior Net Architect: * Neri Crawford Indications: PRE-OP. Study data: Transthoracic echocardiogram. Procedure: A transthoracic echocardiogram was performed. Images were obtained using a [employer] E Portable cardiac ultrasound machine. Image quality [...] --------- SV 71 ml --------- PATIENT NAME: AMAURYNAVJOT Lange SV/bsa 40 ml/m 2 --------- Right ventricle [...] Peak E/A ratio 0.52 --------- PATIENT NAME: NAVJOT DAS Nazario MVA, PHT 2.9 cm 2 --------- MR [...] 14:48 at 1449 PATIENT NAME: NAVJOT DAS [facility] 2024-07-11 13:22:00 [facility] ([facility]) Discharge Summary REPORT#:[id number] REPORT STATUS: Signed REPORT INITIALIZATION DATE:07/11/24 TIME: 1321 PATIENT: NAVJOT DAS UNIT #: [id number] ROOM: [facility] BED: 1 : 38 AGE: 83 [...] motion, femoral pulses, no clubbing, no cyanosis Neuro/MATCHBOOK ASSEMBLER: alert, oriented X 3, CNII-XII intact, normal speech Skin: dry, intact, normal temperature, no rash Wound/incision: Location: R. foot Site Condition: dressing clean dry, dressing intact, ulcerative R. foot wound Psychiatry: normal mood, not homicidal, not suicidal, no hallucinations Discharge Instructions PCP PCP: PCP: Undefined Provider )( Discharge to: Home/Self Care Discharge Instructions Additional Discharge Routines: PCP Follow-Up, Foxing Painter Follow-Up )( Diet: Diabetic )( Activity: As Tolerated Discharge management: greater than 30 mins Follow-up Appointments PCP follow up: PCP: Undefined Provider PCP follow up timeframe: In 1-2 weeks Consulting provider 1: Provider 1: Navjot Finn MD Specialty: Vascular Surgery Consult follow up timeframe: In 1-2 weeks at 1327 RPT #:[id number] END OF REPORT [facility] 2024-07-11 09:23:00 [facility] ([facility]) Vascular Surg. Progress Note REPORT #: [id number] REPORT STATUS: Signed DATE: 07/11/24 TIME: 922 PATIENT: NAVJOT DAS UNIT #: [id number] ROOM #: [facility] BED: 1 : 38 AGE: 83 SEX: M ATTEND: Yuko Beauchamp MD ADM AUTHOR: Maurice Salmeron MD R5 AT TENTION *EDITS and/or ADDENDA must be made in Patient Keeper for this note. * * Edits and ammendments created in [employer] are not visible * * in Patient [...] male with PMH of DM, CKD, PAD CABG/OR years ago transferred from [facility] for PAD with associated right foot wound (webspace between 4th/5th digits) 07/05 OSH RLE angiogram showed bilateral infrapopliteal disease with single-vessel runoff. Details below: Right superficial femoral artery has 50 to 60% stenosis. Right popliteal artery is an 80% stenosis Right TP trunk has 70 to 80% stenosis Right anterior tibial artery is CHILDREN'S AUTHOR Right posterior tibial artery CHILDREN'S AUTHOR Right peroneal artery is the only single-vessel runoff. Has multiple lesions of 80 to 90% Arterial duplex 07/08 showed monophasic waveforms in all 3 run off vessels bilaterally. S/p RLE angiogram on 3/12 - AT and PT occlusion, peroneal runoff [...] - 90) IOS (07/10 07:00-07/11 07:00): Net-50 [id number] Jdszml507 Oral ml:500 Urinary catheter ml:550 EXAM: General [...] 4 MG PO C BK FLU VACC [id number](65YR UP)/PF 180 MCG IM ASDIR INSULIN GLARGINE [...] * * Edits and ammendments created in [facility] are not visible * * in Patient Keeper or the legal medical record (HPF). * RPT #: [id number] END OF REPORT [facility] 2024-07-11 08:40:00 [facility] ([facility]) Cardiology Progress Notes REPORT #: [id number] REPORT STATUS: Signed DATE: 07/11/24 TIME: 839 PATIENT: NAVJOT DAS UNIT #: [id number] ROOM #: P.0905 BED: 1 : 38 AGE: 83 SEX: M ATTEND: Yuko Beauchamp MD ADM AUTHOR: Karma Patterson DO CF1 AT [facility]ENT[facility] *EDITS and/or ADDENDA must be made in Patient Keeper for this note. * * Edits and ammendments created in [employer] are not visible * * in Patient [...] and infrapopliteal (TP trunk 70-80%, KATHY and MECHANICAL STRIPER both CHILDREN'S AUTHOR, 80-90% lesions in peroneal) disease with single vessel runoff - Complicated by non-healing right foot arterial ulcer - Vascular planning for possible revascularization inpatient vs. outpatient 3: Coronary Artery Disease S/p Prior Bypass Surgery A/P: - Follows with Polymer Scientist at [place] - Triple vessel CABG in 2014 - [...] today. She reports pt follows with a nail tech at [place]. Underwent PCI (x3 DAVID) last June 2023 and reportedly had ejection fraction of 30% that recently recovered to 50%. Reportedly was told by his nail tech he is high risk for any kind [...] stage II CKD, who was transferred from [facility] on 07/09/24 for evaluation for right lower extremity revascularization by vascular surgery team (Dr. Finn). Angiography of the limb at [place] reportedly showed severe popliteal (80%) and infrapopliteal (TP trunk 70-80%, KATHY and MECHANICAL STRIPER both CHILDREN'S AUTHOR, 80-90% lesions in peroneal) disease with single [...] been fairly active. 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 [...] - 90) IOS (07/10 07:00-07/11 07:00): Net-50 Ijjyyv319 Qcqyar345 Oral ml:500 Urinary catheter ml:550 EXAM: General [...] 4 MG PO C BK FLU VACC [id number](65YR UP)/PF 180 MCG IM ASDIR INSULIN GLARGINE [...] * * Edits and ammendments created in [facility] are not visible * * in Patient Keeper or the legal medical record (HPF). * RPT #: [id number] END OF REPORT [facility] 2024-07-10 21:00:00 [facility] ([facility]) Operative Report REPORT #: [id number] REPORT STATUS: Signed DATE: 07/10/24 TIME: 2099 PATIENT: NAVJOT DAS UNIT #: [id number] ROOM #: [facility] BED: 1 : 38 AGE: 83 SEX: M ATTEND: Yuko Beauchamp MD [facility] AUTHOR: Navjot Finn MD AT TENTION *EDITS and/or ADDENDA must be made in Patient Keeper for this note. * * Edits and ammendments created in [employer] are not visible * * in Patient Keeper or the legal medical record (HPF). * Note Date: 07/10/24 21:00 -- OPERATION -- SURGERY START DATE/TIME 07/10/2024 21:00 PRE-OPERATIVE DIAGNOSIS: peripheral arterial disease POST-OPERATIVE DIAGNOSIS: peripheral arterial disease INDICATION(S): non-healing right foot wounds NAME OF PROCEDURE: right lower extremity angiography Surgeon:NAVJOT FINN MD STRIPE MARKER(S): None ANESTHESIA: moderate sedation ESTIMATED BLOOD LOSS [...] retrograde fashion under ultrasound guidance. A 5 Cuban sheath was placed. A sheath angiogram was [...] I inserted a J-wire into the 5 Cuban sheath prior to removal and deployment of [...] * * Edits and ammendments created in [employer] are not visible * * in Patient Keeper or the legal medical record (HPF). * RPT #: [id number] END OF REPORT [facility] 2024-07-10 16:58:00 [facility] ([facility]) Cardiology Consultation REPORT #: [id number] REPORT STATUS: Signed DATE: 07/10/24 TIME: 1658 PATIENT: NAVJOT DAS UNIT #: [id number] ROOM #: P.0905 BED: 1 : 38 AGE: 83 SEX: M ATTEND: Yuko Beauchamp MD [facility] AUTHOR: Karma Patterson DO [facility] AT [facility] *EDITS and/or ADDENDA must be made in Patient Keeper for this note. * * Edits and ammendments created in [employer] are not visible * * in Patient [...] and infrapopliteal (TP trunk 70-80%, KATHY and MECHANICAL STRIPER both CHILDREN'S AUTHOR, 80-90% lesions in peroneal) disease with single [...] stage II CKD, who was transferred from [facility] on 07/09/24 for evaluation for right lower extremity revascularization by vascular surgery team (Dr. Finn). Angiography of the limb at [place] reportedly showed severe popliteal (80%) and infrapopliteal (TP trunk 70-80%, KATHY and MECHANICAL STRIPER both CHILDREN'S AUTHOR, 80-90% lesions in peroneal) disease with single [...] been fairly active. 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 [...] 4 MG PO C BK FLU VACC [id number](65YR UP)/PF 180 MCG IM ASDIR hydrALAZINE HCL [...] * * Edits and ammendments created in [facility] are not visible * * in Patient Keeper or the legal medical record (HPF). * RPT #: [id number] END OF REPORT [facility] 2024-07-10 11:17:00 [facility] ([facility]) Hospitalist Progress Note REPORT#:[id number] REPORT STATUS: Signed REPORT INITIALIZATION DATE:07/10/24 TIME: 1116 PATIENT: NAVJOT DAS UNIT #: [id number] ROOM: [facility] BED: 1 : 38 AGE: 83 [...] 83 18 116/54 74.9 97 Room air 07/09 2317 37.0 84 16 112/50 70.6 98 Room air 03/11 2024 37.0 74 16 116/52 73.6 99 [...] motion, femoral pulses, no clubbing, no cyanosis Neuro/MATCHBOOK ASSEMBLER: alert, oriented X 3, CNII-XII intact, normal [...] (Auto) (20.5 - 51.1 %) 16.4 L [place] % (Auto) (1.7 - 9.3 %) 7.3 Eos % (Auto) (0.0 - 7.0 %) 5.6 Baso % (Auto) (0 - 2.5 %) 0.4 Neut # (Auto) (1.80 - 7.70 x10 3/uL) 6.28 Lymph # (Auto) (1.00 - 4.80 x10 3/uL) 1.47 Yolo # (Auto) (0.00 - 0.80 x10 3/uL) 0.66 Eos # (Auto) (0.00 - 0.45 x10 3/uL) 0.50 H Baso # (Auto) (0.0 - 0.20 x10 3/uL) 0.04 Radiology data: Recent Impressions: ULTRASOUND - DUP VEIN BENJAMIN 07/10 1919 Report Impression - Status: SIGNED Entered: 07/09/20242099 IMPRESSION: RIGHT: Right greater saphenous vein Proximal [...] -will continue to follow at 2044 RPT #:[id number] END OF REPORT [facility] 2024-07-09 14:15:00 [facility] ([facility]) Hospitalist Progress Note REPORT#:[id number] REPORT STATUS: Signed REPORT INITIALIZATION DATE:07/09/24 TIME: 1415 PATIENT: NAVJOT DAS UNIT #: [id number] ROOM: [facility] BED: 1 : 38 AGE: 83 [...] motion, femoral pulses, no clubbing, no cyanosis Neuro/MATCHBOOK ASSEMBLER: alert, oriented X 3, CNII-XII intact, normal [...] (Auto) (20.5 - 51.1 %) 19.4 L Yolo % (Auto) (1.7 - 9.3 %) 8.2 Eos % (Auto) (0.0 - 7.0 %) 4.4 Baso % (Auto) (0 - 2.5 %) 0.3 Neut # (Auto) (1.80 - 7.70 x10 3/uL) 4.40 Lymph # (Auto) (1.00 - 4.80 x10 3/uL) 1.27 Yolo # (Auto) (0.00 - 0.80 x10 3/uL) [...] -will continue to follow at 1509 RPT #:[id number] END OF REPORT [facility] 2024-07-09 08:34:00 [facility] ([facility]) Vascular Surg. Consultation REPORT #: [id number] REPORT STATUS: Signed DATE: 07/09/24 TIME: 08 PATIENT: NAVJOT DAS UNIT #: [id number] ROOM #: [facility] BED: 1 : 38 AGE: 83 SEX: M ATTEND: Yuko Beauchamp MD ADM AUTHOR: Heather Granados MD R3 AT TENTION *EDITS and/or ADDENDA must be made in Patient Keeper for this note. * * Edits and ammendments created in [email or web address] are not visible * * in [...] male with PMH of DM, CKD, PAD CABG/OR years ago transferred from [facility] for PAD with associated right foot wound (webspace between 08/03 digits) 07/05 [facility] RLE angiogram showed bilateral infrapopliteal disease with single-vessel runoff. Details below: Right superficial femoral artery has 50 to 60% stenosis. Right popliteal artery is an 80% stenosis Right TP trunk has 70 to 80% stenosis Right anterior tibial artery is CHILDREN'S AUTHOR Right posterior tibial artery CHILDREN'S AUTHOR Right peroneal artery is the only single-vessel [...] male with PMH of DM, CKD, PAD CABG/OR years ago, initially presented to ED in [facility] with chest pain. Workup showed hyperkalemia and elevated BNP. ECHO showed preserved EF. He underwent RLE angiogram at [place] showed severe bilateral infrapopliteal disease with single-vessel runoff, and patient was recommended to follow up with vascular surgery for revascularization. He was transferred [facility] for further evaluation. Patient reports that [...] * * Edits and ammendments created in [employer] are not visible * * in Patient Keeper or the legal medical record (HPF). * RPT #: [id number] END OF REPORT [facility] 2024-07-09 00:15:00 [facility] ([facility]) Hospitalist History Physical REPORT#:[id number] REPORT STATUS: Signed REPORT INITIALIZATION DATE:07/09/24 TIME: 14 PATIENT: NAVJOT DAS UNIT #: [id number] ROOM: [facility] BED: 1 : 38 AGE: 83 SEX: M ATTEND: Yuko Beauchamp MD ADM AUTHOR: Yuko Beauchamp MD REPT SERVICE DT/TIME: 07/08/24 1800 * ALL edits or amendments must be made on the electronic/computer document * History of Present Illness HPI Chief complaint: RLE pain PCP: PCP: Undefined Provider HPI: 83yo M with multi-comorbid past medical history presenting to [facility] for evaluation of progressively worsening right lower extremity associated with impaired ambulation over the course of approximately one month. Patient was transferred to this facility for optimization of care from [facility] following failed revascularization attempt. Apart from the aforementioned; patient denies cardiopulmonary, MATCHBOOK ASSEMBLER, or GI/ deviation from clinical baseline prior [...] Admin Metoprolol Succinate 25 MG DAILY 07/09 09 AC (TOPROL XL) PO 08/08 900 Atorvastatin Calcium 80 MG BEDTIME 07/08 2099 AC 07/08 (LIPITOR) PO 08/07 Sacubitril/Valsartan 1 TAB BID 07/08 2100 AC 07/08 (Entresto 49 MG-51 PO 08/07 MG Tablet) Hydralazine HCl 10 MG Q6H [...] Time Status Admin Empagliflozin 25 MG DAILY 0800 07/09 0800 CAN (Jardiance) PO 08/08 800 Glimepiride 4 MG C BK 07/09 08 DC (GLIMEPIRIDE PO 08/08 800 (GENERIC AMARYL)) Glimepiride 4 MG C BK 07/09 08 AC (GLIMEPIRIDE PO 08/08 800 (GENERIC AMARYL)) Insulin Human Lispro See Dose C MEALS HS 07/08 2100 AC 07/08 (AdmeLOG) Insts (1) SUBQ 08/07 2101 2103 Glucagon 1 MG ASDIR PRN 07/08 174 AC (GLUCAGON) IM 08/07 174 Miscellaneous Therapeutic Agen Sig/Krysten Start time Last Medication Dose Route Stop Time Status Admin Finasteride 5 MG DAILY 0800 07/09 0800 AC (PROSCAR) PO 08/07 174 [...] motion, femoral pulses, no clubbing, no cyanosis Neuro/MATCHBOOK ASSEMBLER: alert, oriented X 3, CNII-XII intact, normal [...] (3.2 - 4.8 g/dL) 3.3 Laboratory Tests 07/087 Hematology WBC (4.8 - 10.8 x10 3/uL) [...] (Auto) (20.5 - 51.1 %) 19.4 L Yolo % (Auto) (1.7 - 9.3 %) 8.2 Eos % (Auto) (0.0 - 7.0 %) 4.4 Baso % (Auto) (0 - 2.5 %) 0.3 Neut # (Auto) (1.80 - 7.70 x10 3/uL) 4.40 Lymph # (Auto) (1.00 - 4.80 x10 3/uL) 1.27 Yolo # (Auto) (0.00 - 0.80 x10 3/uL) [...] wound. #PAD: b/l infrapopliteal disease observed by leonel @ [facility](07/05) -continue PRN analgesia, hold eliquis [...] -will continue to follow at 1415 RPT #:[id number] END OF REPORT [facility] 2024-07-08 13:59:00 [facility] ([facility]) Cardiology Progress Note REPORT#:[id number] REPORT STATUS: Signed REPORT INITIALIZATION DATE:07/08/24 TIME:1358 PATIENT: NAVJOT DAS UNIT #: [id number] ROOM/BED: [place] [address] : 38 AGE: 83 SEX: M ATTEND: Eduardo Mishra MD ADM AUTHOR: Modesto Turner CITY ENGINEER REPT SERVICE DT/TIME: 07/08/24 1359 * ALL [...] 92 16 120/58 78.8 98 Room air / 1510 37.0 94 18 130/59 82.5 98 [...] this time Case discussed with Dr. Emerson Norman,[facility] 09/01/24 2310: Diagnosis, Assessment Plan Free Text DxA P Notes Free Text DxA P Notes: I have examined patient. I have reviewed records. I have gone over all the information in detail. I have also discussed this patient in detail with Catie MARQUEZ BLACK STUDIES PROFESSOR-C . Assessment and plan formulated by me. [...] 2. at 1407 at 2313 RPT #: [id number] END OF REPORT [facility] 2024-07-08 13:03:00 [facility] ([facility]) Hospitalist Discharge Summary REPORT#:[id number] REPORT STATUS: Signed REPORT INITIALIZATION DATE:07/08/24 TIME:1303 PATIENT: NAVJOT DAS UNIT #: [id number] ROOM/BED: [place] [address] : 38 AGE: 83 SEX: M ATTEND: [...] dyslipidemia, PAD with chronic right foot ulcer, OR and status post CABG, admitted for # Ischemic limb, right lower extremity/severe PAD # Diabetic foot ulcer Ultrasound showed "Right lower extremity demonstrates occluded dorsalis pedis artery". Keep patient on tele- Patient was on heparin drip, transition to Eliquis per recommendation by vascular surgeon. Patient is also on statin and aspirin Polymer Scientist and chief cruiser following , appreciate input Status post angiogram [...] # Atypical chest pain # History of OR status post CABG on pravastatin and aspirin and Eliquis DVT prophylaxis with Eliquis Full code Dispo Patient has persistent pain in the right foot Discussed with nail tech recommend initiation of transfer to where vascular surgeon's is available for Revascularization. Patient is accepted to [facility] and accepting vascular surgeon is Dr. Navjot Finn Updated patient family Ms Messina over the phone. Med Rec Med Rec Discharge meds: Stop taking the following medications: CLOPIDOGREL (PLAVIX) 75 MG TAB 75 MILLIGRAM ORAL DAILY. Continue taking these medications: Hydrocodone/Acetaminophen (HYDROcodone/APAP 5/325) 5 MG-325 MG TAB 1 TABLET ORAL EVERY 8 HR NEEDED. as needed for PAIN Comments: 5 Days #15 TAB - SIG Obtained From [employer] SPIRONOLACTONE (ALDACTONE) 25 MG TAB 25 MILLIGRAM ORAL DAILY. Comments: TAKE ONE (1) TABLET(S) BY MOUTH DAILY.; 90 Days #90 ADULT - SIG Obtained From [employer] FINASTERIDE (PROSCAR) 5 MG TAB 5 MILLIGRAM ORAL DAILY. Comments: TAKE ONE (1) TABLET(S) BY MOUTH DAILY.; 90 Days #90 ADULT - SIG Obtained From [employer] METOPROLOL SUCC XL (TOPROL XL) 25 MG TAB.SR.24H 25 MILLIGRAM ORAL DAILY. Comments: TAKE ONE (1) TABLET(S) BY MOUTH DAILY.; 90 Days #90 ADULT - SIG Obtained From [employer] Sacubitril/Valsartan (Entresto 49 MG-51 MG Tablet) 49 MG-51 MG TAB 1 EACH ORAL TWICE DAILY. Comments: TAKE ONE (1) TABLET(S) BY MOUTH TWICE A DAY.; 30 Days #60 ADULT - SIG Obtained From [employer] EMPAGLIFLOZIN (JARDIANCE) 25 MG TAB 25 MILLIGRAM ORAL DAILY. Comments: TAKE ONE (1) TABLET(S) BY MOUTH ONCE A DAY.; 90 Days #90 ADULT - SIG Obtained From [employer] [TRESIBA FLEXTOUCH ] SUBCUTANEOUS BEDTIME. Comments: INJECT 20 UNITS UNDER THE SKIN AT BEDTIME. FOR TRESIBA_ TAKE HALF DOSE IF BLOOD GLUCOSE 80 - 120 MG/DL, HOLD IF LESS THAN 80.; 90 Days #9 ADULT - SIG Obtained From [employer] ATORVASTATIN (LIPITOR) 80 MG TAB 80 MILLIGRAM ORAL BEDTIME. Comments: TAKE ONE (1) TABLET(S) BY MOUTH DAILY WITH EVENING MEAL.; 100 Days #100 ADULT - SIG Obtained From [employer] GLIMEPIRIDE (GLIMEPIRIDE) 4 MG TAB 4 MILLIGRAM ORAL WITH BREAKFAST. Comments: 90 Days #90 TAB - SIG Obtained From [employer] Start taking the following new medications: APIXABAN [...] with clean bandage Musculoskeletal: Moves all extremities Neuro/MATCHBOOK ASSEMBLER: alert, oriented X 3, normal speech Skin: See wound care notes Psychiatry: normal affect, normal mood Discharge Instructions Additional Discharge Routines: PCP Follow-Up, Foxing Painter Follow-Up at 1701 RPT #: [id number] END OF REPORT [facility] 2024-07-08 12:23:00 [facility] ([facility]) Podiatry Progress Note REPORT#:[id number] REPORT STATUS: Signed REPORT INITIALIZATION DATE:07/08/24 TIME:1223 PATIENT: NAVJOT DAS UNIT #: [id number] ROOM/BED: [place] [address] : 38 AGE: 83 SEX: M ATTEND: [...] Result Date Time Pulse Ox 98 07/08 1138 B/P 118/64 07/08 1138 B/P Mean 82.2 07/08 1138 O2 Delivery Room air 07/08 1138 Temp 97.7 07/08 1138 Pulse 83 07/08 1138 Resp 16 07/08 1138 PATIENT WEIGHT: Weight (lb): Weight (oz): Weight [...] dyslipidemia, PAD with chronic right foot ulcer, OR and status post CABG presents to the [...] and antibiotic therapy. at 1224 RPT #: [id number] END OF REPORT [facility] 2024-07-08 10:49:00 [facility] ([facility]) Hospitalist Progress Note REPORT#:[id number] REPORT STATUS: Signed REPORT INITIALIZATION DATE:07/08/24 TIME:1048 PATIENT: NAVJOT DAS UNIT #: [id number] ROOM/BED: [place] [address] : 38 AGE: 83 SEX: M ATTEND: [...] IV (CKD) Results Findings/Data: Laboratory Tests 07/08 07/07 07/07 0351 1648 1206 Chemistry Sodium (136 - 145 [...] (Auto) (20.5 - 51.1 %) 17.3 L Yolo % (Auto) (1.7 - 9.3 %) 8.5 Eos % (Auto) (0.0 - 6.0 %) 5.5 Baso % (Auto) (0.0 - 2.0 %) 0.4 Neut # (Auto) (1.8 - 7.6 K/mm3) 5.2 Lymph # (Auto) (0.6 - 3.0 K/mm3) 1.3 Yolo # (Auto) (0.2 - 1.5 K/mm3) 0.7 [...] with clean bandage Musculoskeletal: Moves all extremities Neuro/MATCHBOOK ASSEMBLER: alert, oriented X 3, normal speech Skin: See wound care notes Psychiatry: normal affect, normal mood Diagnosis, Assessment Plan Free Text DxA P Notes Free text DxA P notes: 83-year-old male patient with past medical history of diabetes mellitus, hypertension, dyslipidemia, PAD with chronic right foot ulcer, OR and status post CABG, admitted for # Ischemic limb, right lower extremity/severe PAD # Diabetic foot ulcer Ultrasound showed "Right lower extremity demonstrates occluded dorsalis pedis artery". Keep patient on tele- Patient was on heparin drip, transition to Eliquis per recommendation by vascular surgeon. Patient is also on statin and aspirin Polymer Scientist and chief cruiser following , appreciate input Status post angiogram [...] # Atypical chest pain # History of OR status post CABG on pravastatin and aspirin and Eliquis DVT prophylaxis with Eliquis Full code Dispo Possible discharge in 24 to 48 hours at 1101 Addendum 1: 07/08/24 1214 by Myke Woods MD Patient has persistent pain in the right foot Vascular surgeon on-call is out of town discussed with nail tech recommend initiation of transfer to where vascular surgeon's is available for Revascularization. prefarably [facility] Yancy. at 1217 RPT #: [id number] END OF REPORT [facility] 2024-07-08 10:19:00 [facility] ([facility]) Wound Care Progress Note REPORT#:[id number] REPORT STATUS: Signed REPORT INITIALIZATION DATE:07/08/24 TIME:1019 PATIENT: NAVJOT DAS UNIT #: [id number] ROOM/BED: [place] [address] : 38 AGE: 83 SEX: M ATTEND: [...] no distress Abdomen: non-tender Extremities: no edema Neuro/MATCHBOOK ASSEMBLER: diminished hearing bl Skin: lesions (multiple excoriations), [...] Plan Problem List/A P: 1. 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0 K/mm3) 7.6 [...] (Auto) (20.5 - 51.1 %) 17.3 L Yolo % (Auto) (1.7 - 9.3 %) 8.5 Eos % (Auto) (0.0 - 6.0 %) 5.5 Baso % (Auto) (0.0 - 2.0 %) 0.4 Neut # (Auto) (1.8 - 7.6 K/mm3) 5.2 Lymph # (Auto) (0.6 - 3.0 K/mm3) 1.3 Yolo # (Auto) (0.2 - 1.5 K/mm3) 0.7 [...] for the consultation, any question please call [phone] at 1848 RPT #: [id number] END OF REPORT [facility] 2024-07-07 23:20:00 [id number] [address] PATIENT NAME: NAVJOT DAS ADMIT DATE: 07/02/24 ACCOUNT NO: [id number] ROOM NO: [facility] AGE: 83 REPORT TYPE: CONSULTATION SEX: M [...] 5. Chronic foot ulcers. 6. History of OR. PAST SURGICAL HISTORY: Status post CABG. FAMILY [...] will follow the patient closely. Dictated By: Brittain Bañuelos MD Date Dictated: 07/07/2024 23:20:33 Date Transcribed: 07/08/2024 03:35:18 JENNIFER/HAILEE/OLIVERIO Receipt ID: [id number] Authenticated by Brittani Bañuelos MD On 08/10/2024 01:16:35 PM at 0116 PATIENT NAME: NAVJOT DAS [facility] 2024-07-07 14:16:00 [facility] ([facility]) Infect Dis Consult Note_ Brief REPORT#:[id number] REPORT STATUS: Signed REPORT INITIALIZATION DATE:07/07/24 TIME:1415 PATIENT: NAVJOT DAS UNIT #: [id number] ROOM/BED: [place] [address] : 38 AGE: 83 SEX: M ATTEND: [...] codeine (ITCHING 07/02/24) at 2238 RPT #: [id number] END OF REPORT [facility] 2024-07-07 12:10:00 [facility] ([facility]) Hospitalist Progress Note REPORT#:[id number] REPORT STATUS: Signed REPORT INITIALIZATION DATE:07/07/24 TIME:1210 PATIENT: NAVJOT DAS UNIT #: [id number] ROOM/BED: [place] [address] : 38 AGE: 83 SEX: M ATTEND: [...] Tests 07/07 07/07 07/06 07/06 08 0357 2038 1639 Chemistry Sodium (136 - 145 mmol/L) [...] (Auto) (20.5 - 51.1 %) 20.1 L Yolo % (Auto) (1.7 - 9.3 %) 6.9 Eos % (Auto) (0.0 - 6.0 %) 5.5 Baso % (Auto) (0.0 - 2.0 %) 0.5 Neut # (Auto) (1.8 - 7.6 K/mm3) 4.9 Lymph # (Auto) (0.6 - 3.0 K/mm3) 1.5 Yolo # (Auto) (0.2 - 1.5 K/mm3) 0.5 [...] with clean bandage Musculoskeletal: Moves all extremities Neuro/MATCHBOOK ASSEMBLER: alert, oriented X 3, normal speech Skin: See wound care notes Psychiatry: normal affect, normal mood Diagnosis, Assessment Plan Free Text DxA P Notes Free text DxA P notes: 83-year-old male patient with past medical history of diabetes mellitus, hypertension, dyslipidemia, PAD with chronic right foot ulcer, OR and status post CABG, admitted for # Ischemic limb, right lower extremity/severe PAD # Diabetic foot ulcer Ultrasound showed "Right lower extremity demonstrates occluded dorsalis pedis artery". Keep patient on tele- Patient was on heparin drip, transition to Eliquis per recommendation by vascular surgeon. Patient is also on statin and aspirin Polymer Scientist and chief cruiser following , appreciate input Status post angiogram [...] # Atypical chest pain # History of OR status post CABG on pravastatin and aspirin and Eliquis DVT prophylaxis with Eliquis Full code Called to update family yesterday no response at 1216 RPT #: [id number] END OF REPORT [facility] 2024-07-07 11:28:00 [facility] Nephrology Progress Note REPORT#:[id number] REPORT STATUS: Signed REPORT INITIALIZATION DATE:07/07/24 TIME:112 PATIENT: NAVJOT DAS UNIT #: [id number] ROOM/BED: [place] [address] : 38 AGE: 83 SEX: M ATTEND: [...] distention Extremities: no edema Musculoskeletal: no tendereness Neuro/MATCHBOOK ASSEMBLER: alert, oriented X 3 Results Findings/Data: Laboratory [...] (Auto) (20.5 - 51.1 %) 20.1 L Yolo % (Auto) (1.7 - 9.3 %) 6.9 Eos % (Auto) (0.0 - 6.0 %) 5.5 Baso % (Auto) (0.0 - 2.0 %) 0.5 Neut # (Auto) (1.8 - 7.6 K/mm3) 4.9 Lymph # (Auto) (0.6 - 3.0 K/mm3) 1.5 Yolo # (Auto) (0.2 - 1.5 K/mm3) 0.5 [...] for the consultation, any question please call [phone] at 1130 RPT #: [id number] END OF REPORT [facility] 2024-07-07 11:06:00 [facility] ([facility]) Cardiology Progress Note REPORT#:[id number] REPORT STATUS: Signed REPORT INITIALIZATION DATE:07/07/24 TIME:1105 PATIENT: NAVJOT DAS UNIT #: [id number] ROOM/BED: [address] : 38 AGE: 83 SEX: M ATTEND: Eduardo Mishra MD ADM AUTHOR: Jabari Norman MD REPT SERVICE DT/TIME: 07/06/24 1106 * ALL edits or amendments must be made on the electronic/computer document * Subjective HPI: 83-year-old male history of diabetes, CKD, PAD with chronic right foot wound, CABG/OR years ago, hypertension presents to the emergency [...] Flow FiO2 Mean Ox Delivery Rate 07/07 0724 98.4 84 18 134/63 87.0 98 Room [...] dyslipidemia, PAD with chronic right foot ulcer, OR and status post CABG, admitted for Ischemic [...] shows preserved EF at 1110 RPT #: [id number] END OF REPORT [facility] 2024-07-06 13:07:00 [facility] ([facility]) Wound Care Progress Note REPORT#:[id number] REPORT STATUS: Signed REPORT INITIALIZATION DATE:07/06/24 TIME:130 PATIENT: NAVJOT DAS UNIT #: [id number] ROOM/BED: [place] [address] : 38 AGE: 83 SEX: M ATTEND: [...] Documented: Result Date Time Pulse Ox 97 07/06 1132 B/P 107/47 07/06 1132 B/P Mean 66.7 07/06 1132 O2 Delivery Room air 07/06 1132 Temp 98.2 07/06 1132 Pulse 84 07/06 1132 Resp 16 07/06 1132 PATIENT WEIGHT: Weight (lb): Weight (oz): Weight (kg): 61.364 Medications: Active Meds + DC'd Last 24 Hrs Sodium Chloride (0.9% Sodium Chloride) 1,000 ML .[id number] IV (DC) Hydrocodone Bitart/Acetaminophen (NORCO 5/325) 1 [...] no distress Abdomen: non-tender Extremities: no edema Neuro/MATCHBOOK ASSEMBLER: diminished hearing bl Skin: lesions (multiple excoriations), [...] Plan Problem List/A P: 1. 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 Defer wound care to podiatry 2. Scrotal ulcer apply antifungal barrier cream once per RN shift. 3. Intertrigo apply antifungal barrier cream once per RN shift. 4. Multiple excoriations leave open to air 5. Decubitus ulcer of sacral region, stage 1 turn every 2 hours at 1309 RPT #: [id number] END OF REPORT [facility] 2024-07-06 11:53:00 [facility] ([facility]) Hospitalist Progress Note REPORT#:[id number] REPORT STATUS: Signed REPORT INITIALIZATION DATE:07/06/24 TIME:115 PATIENT: NAVJOT DAS UNIT #: [id number] [address]BED: [address] : 38 AGE: 83 SEX: M ATTEND: [...] Sodium Chloride (0.9% Sodium Chloride) 1,000 ML .[id number] IV (DC) Hydrocodone Bitart/Acetaminophen (NORCO 5/325) 1 [...] erythema, nd gangrene Musculoskeletal: Moves all extremities Neuro/MATCHBOOK ASSEMBLER: alert, oriented X 3, normal speech Skin: erythema, lesions Psychiatry: normal affect, normal mood Diagnosis, Assessment Plan Free Text DxA P Notes Free text DxA P notes: 83-year-old male patient with past medical history of diabetes mellitus, hypertension, dyslipidemia, PAD with chronic right foot ulcer, OR and status post CABG, admitted for # Ischemic limb, right lower extremity/severe PAD # Diabetic foot ulcer Ultrasound showed "Right lower extremity demonstrates occluded dorsalis pedis artery". Keep patient on tele- Patient is presently on heparin drip Patient is also on statin and aspirin Polymer Scientist and chief cruiser following , appreciate input Status post angiogram [...] # Atypical chest pain # History of OR status post CABG on pravastatin and aspirin and heparin drip. DVT prophylaxis with heparin Full code at 1209 Addendum 1: 07/06/24 1414 by Myke Woods MD Called patient daughter Mayuri at [phone] no response at 1416 RPT #: [id number] END OF REPORT [facility] 2024-07-06 11:09:00 [facility] ([facility]) Nephrology Progress Note REPORT#:[id number] REPORT STATUS: Signed REPORT INITIALIZATION DATE:07/06/24 TIME:1109 PATIENT: NAVJOT DAS UNIT #: [id number] ROOM/BED: [place] [address] : 38 AGE: 83 SEX: M ATTEND: Eduardo Mishra MD ADM AUTHOR: Gatito Avila MD REPT SERVICE DT/TIME: 07/06/24 1109 * ALL edits or amendments must be [...] Sodium Chloride (0.9% Sodium Chloride) 1,000 ML .[id number] IV (DC) Hydrocodone Bitart/Acetaminophen (NORCO 5/325) 1 [...] distention Extremities: no edema Musculoskeletal: no tendereness Neuro/MATCHBOOK ASSEMBLER: alert, oriented X 3 Results Findings/Data: Laboratory [...] L Laboratory Tests 07/06 050 Coagulation PTT (Cottle) (26 - 35 SECONDS) 46.9 H Laboratory [...] % (Auto) (20.5 - 51.1 %) 22.2 [place]olo % (Auto) (1.7 - 9.3 %) 7.5 Eos % (Auto) (0.0 - 6.0 %) 5.5 Baso % (Auto) (0.0 - 2.0 %) 0.4 Neut # (Auto) (1.8 - 7.6 K/mm3) 3.6 Lymph # (Auto) (0.6 - 3.0 K/mm3) 1.2 Yolo # (Auto) (0.2 - 1.5 K/mm3) 0.4 [...] for the consultation, any question please call [phone] at 1356 RPT #: [id number] END OF REPORT [facility] 2024-07-05 21:30:00 [facility] ([facility]) Podiatry Progress Note REPORT#:[id number] REPORT STATUS: Signed REPORT INITIALIZATION DATE:07/05/24 TIME:2129 PATIENT: NAVJOT DAS UNIT #: [id number] ROOM/BED: [place] [address] : 38 AGE: 83 SEX: M ATTEND: Eduardo Mishra MD ADM AUTHOR: Nathan Bernard DPM REPT SERVICE DT/TIME: 07/05/242129 * ALL edits or amendments must be made on the electronic/computer document * Subjective Chief complaint: right foot wound HPI: 83-year-old male patient with past medical history of diabetes mellitus, hypertension, dyslipidemia, PAD with chronic right foot ulcer, OR and status post CABG, presents to the hospital with a complaint of shortness of breath and right lower extremity pain. Podiatry has been consulted for further care of right foot ulceration. The patient states that he noticed an ulceration approximately 3 weeks ago. The patient has been visiting an off centered doctor who is recommended revascularization. The patient denies seeing any wound care doctor/chief cruiser for the ulceration. The patient has kept [...] Sodium Chloride (0.9% Sodium Chloride) 1,000 ML .[id number] IV (DC) Hydrocodone Bitart/Acetaminophen (NORCO 5/325) 1 [...] % (Auto) (20.5 - 51.1 %) 23.7 Yolo % (Auto) (1.7 - 9.3 %) 7.7 Eos % (Auto) (0.0 - 6.0 %) 5.4 Baso % (Auto) (0.0 - 2.0 %) 0.4 Neut # (Auto) (1.8 - 7.6 K/mm3) 4.2 Lymph # (Auto) (0.6 - 3.0 K/mm3) 1.6 Yolo # (Auto) (0.2 - 1.5 K/mm3) 0.5 [...] dyslipidemia, PAD with chronic right foot ulcer, OR and status post CABG presents to the [...] for Dr. Echeverria at 2132 RPT #: [id number] END OF REPORT [facility] 2024-07-05 13:23:00 [facility] ([facility]) Hospitalist Progress Note REPORT#:[id number] REPORT STATUS: Signed REPORT INITIALIZATION DATE:07/05/24 TIME:1322 PATIENT: NAVJOT DAS UNIT #: [id number] ROOM/BED: [place] [address] : 38 AGE: 83 SEX: M ATTEND: Eduardo Mishra MD ADM AUTHOR: Myke Woods MD REPT SERVICE DT/TIME: 07/05/24 1323 * ALL edits or amendments must be made on the electronic/computer document * Subjective Free Text Subj Notes Free Text Subj Notes: Patient seen at bedside Scheduled for angiogram Objective Results Findings/Data: Laboratory Tests 07/05 07/05 07/05 07/04 07/04 1218 0930 0712 2003 195 Chemistry POC Glucose (70 - 110 mg/dL) 92 153 H 69 L 121 H 127 H 07/04 1745 Chemistry POC Glucose (70 - 110 mg/dL) 206 H Laboratory Tests 07/05 1407 Coagulation PTT (Eileen) (26 - 35 SECONDS) 57.7 H 47.4 [...] % (Auto) (20.5 - 51.1 %) 23.7 Yolo % (Auto) (1.7 - 9.3 %) 7.7 Eos % (Auto) (0.0 - 6.0 %) 5.4 Baso % (Auto) (0.0 - 2.0 %) 0.4 Neut # (Auto) (1.8 - 7.6 K/mm3) 4.2 Lymph # (Auto) (0.6 - 3.0 K/mm3) 1.6 Yolo # (Auto) (0.2 - 1.5 K/mm3) 0.5 [...] erythema, nd gangrene Musculoskeletal: Moves all extremities Neuro/MATCHBOOK ASSEMBLER: alert, oriented X 3, normal speech Skin: erythema, lesions Psychiatry: normal affect, normal mood Diagnosis, Assessment Plan Free Text DxA P Notes Free text DxA P notes: 83-year-old male patient with past medical history of diabetes mellitus, hypertension, dyslipidemia, PAD with chronic right foot ulcer, OR and status post CABG, admitted for # Ischemic limb, right lower extremity/severe PAD # Diabetic foot ulcer Ultrasound showed "Right lower extremity demonstrates occluded dorsalis pedis artery". Keep patient on tele- Patient is presently on heparin drip Patient is also on statin and aspirin Polymer Scientist and chief cruiser consulted, appreciate input For angiogram today Vascular [...] # Atypical chest pain # History of OR status post CABG on pravastatin and aspirin and heparin drip. DVT prophylaxis with heparin Full code at 1324 RPT #: [id number] END OF REPORT [facility] 2024-07-05 12:09:00 [facility] ([facility]) Cath Post Proc-Full REPORT#:[id number] REPORT STATUS: Signed REPORT INITIALIZATION DATE:07/05/24 TIME:1209 PATIENT: NAVJOT DAS UNIT #: [id number] ROOM/BED: [place] [address] : 38 AGE: 83 SEX: M ATTEND: [...] (mGy/cm 2): 38.9 Performed by: Jabari Norman [employer] Sales Consultant(s): none Procedure details: SEDATION : MODERATE SEDATION [...] sheath. Glidewire advantage was advanced and 5 Cuban sheath was passed without difficulty. We then advanced a 5 Cuban Omni catheter into the descending aorta. Nonselective angiogram of the descending aorta was taken using CO2 angiography We then advanced a Glidewire advantage wire and advanced it into the popliteal artery. We then advanced a 5 Cuban glide catheter over the wire through the [...] 80% stenosis Right anterior tibial artery is CHILDREN'S AUTHOR Right posterior tibial artery CHILDREN'S AUTHOR Right peroneal artery is the only single-vessel runoff. Has multiple lesions of 80 to 90% Left superficial femoral artery is 70% stenosis. There multiple liver lesion 40 to 50% and the left superficial femoral. Left popliteal artery with 60% stenosis. Popliteal is two-vessel runoff. Anterior tibial appears to be CHILDREN'S AUTHOR. Posterior tibialis 70% lesion Findings: Procedures performed [...] none Implants: none at 1107 RPT #: [id number] END OF REPORT [facility] 2024-07-05 10:29:00 [facility] ([facility]) Wound Care Consultation Note REPORT#:[id number] REPORT STATUS: Signed REPORT INITIALIZATION DATE:07/05/24 TIME:1028 PATIENT: NAVJOT DAS UNIT #: [id number] ROOM/BED: [place] [address] : 38 AGE: 83 SEX: M ATTEND: [...] dyslipidemia, PAD with chronic right foot ulcer, OR and status post CABG, presents to the emergency room with a complaint of shortness of breath and right lower extremity pain. According to patient, this shortness of breath started a few days ago and progressively got worse. The alazgtxj-in-ulg at bedside said the home health care [...] Sodium Chloride (0.9% Sodium Chloride) 1,000 ML .[id number] IV Hydrocodone Bitart/Acetaminophen (NORCO 5/325) 1 TAB [...] Sodium Chloride (0.9% Sodium Chloride) 1,000 ML .[id number] IV (DC) Dietitian Nutrition assessment The data set between the solid lines has been imported from the dietitian's assessment. BMI Calculated: 20.0 Nutrition related diagnosis: Nutrition diagnosis details: Nutrition problem: Nutrition etiology: Nutrition signs and symptoms: Nutrition prescription: Dietitian name: Assessment completed: Physical Exam General appearance: chronically ill appearing Head/eyes: atraumatic Extremities: no edema Neuro/MATCHBOOK ASSEMBLER: diminished hearing bl Skin: lesions (multiple excoriations), [...] Plan Problem List/A P: 1. 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 Defer wound care to podiatry 2. Scrotal ulcer A P apply antifungal barrier cream once per RN shift. 3. Intertrigo A P apply antifungal barrier cream once per RN shift. 4. Multiple excoriations 5. Decubitus ulcer of sacral region, stage 1 at 1255 RPT #: [id number] END OF REPORT [facility] 2024-07-05 10:06:00 [facility] Nephrology Progress Note REPORT#:[id number] REPORT STATUS: Signed REPORT INITIALIZATION DATE:07/05/24 TIME:1006 PATIENT: NAVJOT DAS UNIT #: [id number] ROOM/BED: [place] [address] : 38 AGE: 83 SEX: M ATTEND: [...] O2 Flow FiO2 Mean Ox Delivery Rate 07/05 0616 36.5 87 15 119/61 80.8 96 Room air 07/05 0409 36.8 89 16 126/60 82.2 97 Room air 07/04 2357 36.8 93 16 118/62 80.7 97 Room air 07/04 1953 36.6 94 16 129/61 83.5 98 Room air 07/04 1122 36.3 99 16 110/59 75.8 99 Room air 24 hour I O ending at 0700: 07 0700 06 1900 Intake Total 200 980 Output Total [...] Sodium Chloride (0.9% Sodium Chloride) 1,000 ML .[id number] IV Hydrocodone Bitart/Acetaminophen (NORCO 5/325) 1 TAB [...] Sodium Chloride (0.9% Sodium Chloride) 1,000 ML .[id number] IV (DC) Physical Exam General appearance: awake Head/eyes: normocephalic ENT: normal nose Neck: no JVD (a) C-Spine clearance: no midline tenderness Cardiovascular: no murmur Respiratory: no distress Abdomen: non-tender, soft Genitourinary: no bladder distention Extremities: no edema Musculoskeletal: no tendereness Neuro/MATCHBOOK ASSEMBLER: alert, oriented X 3 Results Findings/Data: Laboratory Tests 07/05 07/05 07/04 07/04 07/04 0930 0712 2003 1950 1745 Chemistry POC Glucose (70 - 110 mg/dL) 153 H 69 L 121 H 127 H 206 H 07/04 1203 Chemistry POC Glucose (70 - 110 mg/dL) 105 Laboratory Tests 07/05 07/04 07/04 0332 202 1407 Coagulation PTT (Eileen) (26 - 35 SECONDS) 57.7 H 47.4 H 51.8 H Laboratory Tests 07/05 0332 Hematology WBC (3.5 - 11.0 K/mm3) 6.7 [...] % (Auto) (20.5 - 51.1 %) 23.7 Yolo % (Auto) (1.7 - 9.3 %) 7.7 Eos % (Auto) (0.0 - 6.0 %) 5.4 Baso % (Auto) (0.0 - 2.0 %) 0.4 Neut # (Auto) (1.8 - 7.6 K/mm3) 4.2 Lymph # (Auto) (0.6 - 3.0 K/mm3) 1.6 Yolo # (Auto) (0.2 - 1.5 K/mm3) 0.5 [...] for the consultation, any question please call [phone] at 1811 RPT #: [id number] END OF REPORT [facility] 2024-07-04 12:46:00 [facility] ([facility]) Hospitalist Progress Note REPORT#:[id number] REPORT STATUS: Signed REPORT INITIALIZATION DATE:07/04/24 TIME:1245 PATIENT: NAVJOT DAS UNIT #: [id number] ROOM/BED: [place] [address] : 38 AGE: 83 SEX: M ATTEND: [...] Sodium Chloride (0.9% Sodium Chloride) 1,000 ML .[id number] IV Results Findings/Data: Laboratory Tests 07/04 07/04 07/03 07/03 0802 0626 2025 1725 Chemistry Sodium (136 - 145 mmol/L) [...] 8.8 Laboratory Tests 07/04 06 Coagulation PTT (Cottle) (26 - 35 SECONDS) 71.3 H Laboratory [...] (Auto) (20.5 - 51.1 %) 19.8 L Yolo % (Auto) (1.7 - 9.3 %) 7.5 Eos % (Auto) (0.0 - 6.0 %) 3.3 Baso % (Auto) (0.0 - 2.0 %) 0.6 Neut # (Auto) (1.8 - 7.6 K/mm3) 5.7 Lymph # (Auto) (0.6 - 3.0 K/mm3) 1.7 Yolo # (Auto) (0.2 - 1.5 K/mm3) 0.6 [...] erythema, nd gangrene Musculoskeletal: Moves all extremities Neuro/MATCHBOOK ASSEMBLER: alert, oriented X 3, normal speech Skin: erythema, lesions Psychiatry: normal affect, normal mood Diagnosis, Assessment Plan Free Text DxA P Notes Free text DxA P notes: 83-year-old male patient with past medical history of diabetes mellitus, hypertension, dyslipidemia, PAD with chronic right foot ulcer, OR and status post CABG, admitted for # Ischemic limb, right lower extremity/severe PAD # Diabetic foot ulcer Ultrasound showed "Right lower extremity demonstrates occluded dorsalis pedis artery". Keep patient on tele- Patient is presently on heparin drip Patient is also on statin and aspirin Polymer Scientist and chief cruiser consulted, appreciate input # Hyperkalemia -resolved Nephrology [...] # Atypical chest pain # History of OR status post CABG on pravastatin and aspirin and heparin drip. DVT prophylaxis with heparin Full code at 1252 RPT #: [id number] END OF REPORT [facility] 2024-07-04 12:26:00 [facility] ([facility]) Podiatry Consult Note REPORT#:[id number] REPORT STATUS: Signed REPORT INITIALIZATION DATE:07/04/24 TIME:1226 PATIENT: NAVJOT DAS UNIT #: [id number] ROOM/BED: [place] [address] : 38 AGE: 83 SEX: M ATTEND: [...] dyslipidemia, PAD with chronic right foot ulcer, OR and status post CABG, presents to the hospital with a complaint of shortness of breath and right lower extremity pain. Podiatry has been consulted for further care of right foot ulceration. The patient states that he noticed an ulceration approximately 3 weeks ago. The patient has been visiting an off centered doctor who is recommended revascularization. The patient denies seeing any wound care doctor/chief cruiser for the ulceration. The patient has kept [...] 110/59 07/04 1122 B/P Mean 75.8 07/04 1122 O2 Delivery Room air 07/04 1121 Temp 97.3 07/04 112 Pulse 99 07/04 1122 Resp 16 07/04 [...] Sodium Chloride (0.9% Sodium Chloride) 1,000 ML .[id number] IV I O: 24 hour I O [...] (8.5 - 10.1 MG/DL) 8.8 Coagulation PTT (Eileen) (26 - 35 SECONDS) 71.3 H Hematology [...] (Auto) (20.5 - 51.1 %) 19.8 L Yolo % (Auto) (1.7 - 9.3 %) 7.5 Eos % (Auto) (0.0 - 6.0 %) 3.3 Baso % (Auto) (0.0 - 2.0 %) 0.6 Neut # (Auto) (1.8 - 7.6 K/mm3) 5.7 Lymph # (Auto) (0.6 - 3.0 K/mm3) 1.7 Yolo # (Auto) (0.2 - 1.5 K/mm3) 0.6 [...] (0 - 78 ng/L) 38.0 Coagulation PTT (Cottle) (26 - 35 SECONDS) 55.1 H Diagnosis, Assessment Plan Free Text A P: 83-year-old male patient with past medical history of diabetes mellitus, hypertension, dyslipidemia, PAD with chronic right foot ulcer, OR and status post CABG presents to the [...] for the consultation at 1231 RPT #: [id number] END OF REPORT [facility] 2024-07-04 11:27:00 [facility] ([facility]) Cardiology Progress Note REPORT#:[id number] REPORT STATUS: Signed REPORT INITIALIZATION DATE:07/04/24 TIME:1126 PATIENT: NAVJOT DAS UNIT #: [id number] ROOM/BED: [place] [address] : 38 AGE: 83 SEX: M ATTEND: Eduardo Mishra MD ADM AUTHOR: Modesto Turner APRN REPT SERVICE DT/TIME: 07/04/24 112 * ALL edits or amendments must be made on the electronic/computer document * Modesto Turner 07/04/24 1127: Subjective HPI: 83-year-old male history of diabetes, CKD, PAD with chronic right foot wound, CABG/OR years ago, hypertension presents to the emergency [...] Reviewed vital signs, labs, and testing Tele [facility] Diagnosis, Assessment Plan Free Text DxA P Notes Free Text DxA P Notes: 83-year-old male patient with past medical history of diabetes mellitus, hypertension, dyslipidemia, PAD with chronic right foot ulcer, OR and status post CABG, admitted for # [...] # Atypical chest pain # History of OR status post CABG Trend troponin Review home [...] reduction in ischemic events. Risks: Potential for OR, stroke, bleeding, contrast nephropathy, arrhythmias, peripheral vessel [...] Patient examined at bedside. Discussed with the CITY ENGINEER. Agree with above assessment and plan. Patient leg pain is stable. Creatinine is around 2 which appears to be his baseline. Hyperkalemia has resolved. N.p.o. after midnight. Will proceed with peripheral angiogram. Continue on heparin drip in the interim. Echocardiogram shows preserved ejection fraction. No active chest discomfort. at 1428 at 1112 RPT #: [id number] END OF REPORT [facility] 2024-07-04 09:56:00 [facility] ([facility]) Nephrology Progress Note REPORT#:[id number] REPORT STATUS: Signed REPORT INITIALIZATION DATE:07/04/24 TIME:955 PATIENT: NAVJOT DAS UNIT #: [id number] ROOM/BED: [place]2OB-3 : 38 AGE: 83 SEX: [...] Sodium Chloride (0.9% Sodium Chloride) 1,000 ML .[id number] IV (DC) Physical Exam General appearance: awake Head/eyes: normocephalic ENT: normal nose Neck: no JVD (a) C-Spine clearance: no midline tenderness Cardiovascular: no murmur Respiratory: no distress Abdomen: non-tender, soft Genitourinary: no bladder distention Extremities: no edema Musculoskeletal: no tendereness Neuro/MATCHBOOK ASSEMBLER: alert, oriented X 3 Results Findings/Data: Laboratory Tests 07/04 07/04 07/03 07/03 07/03 0802 0626 2026 1725 1234 Chemistry Sodium (136 - 145 [...] Tests 07/04 07/03 0626 1233 Coagulation PTT (Eileen) (26 - 35 SECONDS) 71.3 H 55.1 [...] (Auto) (20.5 - 51.1 %) 19.8 L [place]olo % (Auto) (1.7 - 9.3 %) 7.5 Eos % (Auto) (0.0 - 6.0 %) 3.3 Baso % (Auto) (0.0 - 2.0 %) 0.6 Neut # (Auto) (1.8 - 7.6 K/mm3) 5.7 Lymph # (Auto) (0.6 - 3.0 K/mm3) 1.7 Yolo # (Auto) (0.2 - 1.5 K/mm3) 0.6 [...] for the consultation, any question please call [phone] at 1728 RPT #: [id number] END OF REPORT [facility] 2024-07-03 13:00:00 [facility] ([facility] Hospitalist Progress Note REPORT#:[id number] REPORT STATUS: Signed REPORT INITIALIZATION DATE:07/03/24 TIME:1300 PATIENT: NAVJOT DAS UNIT #: [id number] ROOM/BED: [place] [address] : 38 AGE: 83 SEX: M ATTEND: [...] Laboratory Tests 07/03 07/03 07/03 07/03 07/03 1214 0808 0426 0426 0426 Chemistry Sodium [...] 1.59 07/03 07/03 07/02 07/02 07/02 0403 3 2013 2013 2013 Chemistry Potassium (3.4 - 5.0 mmol/L) 5.6 H POC Glucose (70 - 110 mg/dL) 280 H Lactic Acid (0.4 - 1.9 mmol/L) 1.9 Uric Acid (3.5 - 7.2 MG/DL) 6.1 Troponin I High Sens (0 - 78 ng/L) 24.1 03/04 03/04 03/04 03/04 03/04 2014 1600 1557 1347 1347 Chemistry Sodium (136 [...] (0.8 - 1.2 INR Unit) 1.04 PTT (Eileen) (26 - 35 SECONDS) 51.8 H 24.0 [...] - 51.1 %) 14.4 L 15.0 L Yolo % (Auto) (1.7 - 9.3 %) 6.8 8.4 Eos % (Auto) (0.0 - 6.0 %) 0.2 0.5 Baso % (Auto) (0.0 - 2.0 %) 0.2 0.3 Neut # (Auto) (1.8 - 7.6 K/mm3) 6.3 6.7 Lymph # (Auto) (0.6 - 3.0 K/mm3) 1.2 1.3 Yolo # (Auto) (0.2 - 1.5 K/mm3) 0.6 [...] Impression By: Eva Crawford M.D. ULTRASOUND - [facility] RT 07/02 1640 Report Impression - Status: SIGNED Entered: 07/02/2024 1735 IMPRESSION: Right lower extremity demonstrates occluded dorsalis pedis artery. Monophasic waveforms in the posterior tibial artery. Impression By: [email or web address] Adrian Cline M.D. NUCLEAR MEDICINE - PULM VENT PERF IMAG 07/02 1800 Report Impression - Status: SIGNED Entered: 07/02/20241914 IMPRESSION: Low probability of pulmonary embolism. Impression By: Huong Bernard M.D. Free Text Obj Notes Free [...] erythema, nd gangrene Musculoskeletal: Moves all extremities Neuro/MATCHBOOK ASSEMBLER: alert, oriented X 3, normal speech Skin: erythema, lesions Psychiatry: normal affect, normal mood Diagnosis, Assessment Plan Free Text DxA P Notes Free text DxA P notes: 83-year-old male patient with past medical history of diabetes mellitus, hypertension, dyslipidemia, PAD with chronic right foot ulcer, OR and status post CABG, admitted for # Ischemic limb, right lower extremity/severe PAD # Diabetic foot ulcer Ultrasound showed "Right lower extremity demonstrates occluded dorsalis pedis artery". Keep patient on tele- Patient is presently on heparin drip Patient is on statin and aspirin Polymer Scientist and chief cruiser consulted, appreciate input # Hyperkalemia Patient given [...] # Atypical chest pain # History of OR status post CABG Trend troponin on pravastatin and aspirin and heparin drip. DVT prophylaxis with heparin Full code at 1304 Addendum 1: 07/03/24 1306 by Myke Woods MD Sepsis Patient is on antibiotic at 1306 RPT #: [id number] END OF REPORT [facility] 2024-07-03 12:44:00 [id number] [facility] [address] [place] [address] PATIENT NAME: NAVJOT DAS ADMIT DATE: 07/02/24 ACCOUNT NO: [id number] ROOM NO: [facility] AGE: 83 REPORT TYPE: eECHOCARDIOGRAM REPORT SEX: M ADMITTING PHYSICIAN: Eduardo Mishra MD ATTENDING PHYSICIAN: Eduardo Mishra MD *[facility]* [id number] [place] [address] Transthoracic Echocardiogram Patient: Navjot Das Study Date: 07/03/2024 BP: 101 / 56 URN: [id number] Location: : 1940 Age: 83 Gender: M Height: 69 in / 175.3 cm Weight: 135.3 lb / 61.4 kg BMI/BSA: 20 kg/m 2 / 1.72 m 2 *Ordering Physician: Susan Antoine Msn *Interpreting Physician: * Jabari Norman MD *Senior Net Architect: * OLIVER Covarrubias Indications: CHF. Study data: Transthoracic echocardiogram. Procedure: [...] . Agitated saline contrast study shows a iditc-cf-talu shunt. Aorta: Aortic root: The root is [...] Peak E 1.17 m/sec --------- PATIENT NAME: NAVJOT DAS Peak A 0.49 m/sec --------- Decel time [...] . Agitated saline contrast study shows a osktd-gx-tbqw shunt. 3. Aortic valve: The findings are consistent with mild to moderate stenosis. There is moderate regurgitation. 4. Mitral valve: The annulus is mildly calcified. The leaflets are mildly calcified. Electronically signed by Jabari Norman MD 07/03/2024 12:44 at 1244 PATIENT NAME: NAVJOT DAS [facility] 2024-07-03 11:51:00 [facility] ([facility] Nephrology Progress Note REPORT#:[id number] REPORT STATUS: Signed REPORT INITIALIZATION DATE:07/03/24 TIME:1151 PATIENT: NAVJOT DAS UNIT #: [id number] ROOM/BED: [place] [address] : 38 AGE: 83 SEX: M ATTEND: [...] 112 18 101/56 71.2 97 Room air 07/02 2253 36.7 108 18 137/70 92.1 98 Room air 03 2001 36.7 112 18 109/38 61.7 98 Room air 03 1521 36.7 99 18 110/80 99 Room [...] Sodium Chloride (0.9% Sodium Chloride) 1,000 ML .[id number] IV Vancomycin HCl (Vancomycin HCl) 1,500 MG [...] distention Extremities: no edema Musculoskeletal: no tendereness Neuro/MATCHBOOK ASSEMBLER: alert, oriented X 3 Results Findings/Data: Laboratory [...] 100 PG/ML) 854 H Laboratory Tests 07/03 Coagulation INR (0.8 - 1.2 INR Unit) 1.04 PTT (Cottle) (26 - 35 SECONDS) 51.8 H 24.0 [...] - 51.1 %) 14.4 L 15.0 L [place]olo % (Auto) (1.7 - 9.3 %) 6.8 8.4 Eos % (Auto) (0.0 - 6.0 %) 0.2 0.5 Baso % (Auto) (0.0 - 2.0 %) 0.2 0.3 Neut # (Auto) (1.8 - 7.6 K/mm3) 6.3 6.7 Lymph # (Auto) (0.6 - 3.0 K/mm3) 1.2 1.3 Yolo # (Auto) (0.2 - 1.5 K/mm3) 0.6 [...] Date/Time Procedure - Status Source Growth 07/02 134 Influenza Virus Type B Antigen [...] 5. DM. 6. HTN. 7. CAD. Recommendations /5: NS 75 ml/hour. Avoid NSAID. 3/4: Received medical treatment for potassium. Repeat BMP. Sodium bicarbonate drip 100 ml/hour. Avoid NSAID. Urine studies Renal US Thank you for the consultation, any question please call [phone] at 1446 RPT #: [id number] END OF REPORT [facility] 2024-07-03 10:50:00 [facility] ([facility]) Cardiology Consultation REPORT#:[id number] REPORT STATUS: Signed REPORT INITIALIZATION DATE:07/03/24 TIME:105 PATIENT: NAVJOT DAS UNIT #: [id number] ROOM/BED: [place] [address] : 38 AGE: 83 SEX: M ATTEND: Eduardo Mishra MD ADM AUTHOR: Modesto Turner CITY ENGINEER REPT SERVICE DT/TIME: 07/03/24 1050 * ALL edits or amendments must be made on the electronic/computer document * Modesto Turner 07/03/24 1050: History of Present Illness HPI HPI: 83-year-old male history of diabetes, CKD, PAD with chronic right foot wound, CABG/OR years ago, hypertension presents to the emergency [...] 108 18 137/70 92.1 98 Room air / 2001 36.7 112 18 109/38 61.7 98 Room air 03/ 1521 36.7 99 18 110/80 99 Room air 03/ 1334 36.7 106 18 108/74 99 Room [...] dyslipidemia, PAD with chronic right foot ulcer, OR and status post CABG, admitted for # [...] # Atypical chest pain # History of OR status post CABG Trend troponin Review home [...] reduction in ischemic events. Risks: Potential for OR, stroke, bleeding, contrast nephropathy, arrhythmias, peripheral vessel [...] Notes: Patient examined at bedside. Discussed with CITY ENGINEER. Agree with above assessment and plan. Patient [...] angiogram. at 1519 at 1111 RPT #: [id number] END OF REPORT [facility] 2024-07-02 20:30:00 [facility] ([facility]) Nephrology Consultation Note REPORT#:[id number] REPORT STATUS: Signed REPORT INITIALIZATION DATE:07/02/24 TIME:2029 PATIENT: NAVJOT DAS UNIT #: [id number] ROOM/BED: [facility]-3 : 38 AGE: 83 SEX: M [...] 07/02 2359 1618 Sodium Chloride 1,000 ML .[id number] 07/02 1600 AC (0.9% Sodium IV 07/03 [...] Sodium Chloride (0.9% Sodium Chloride) 1,000 ML .[id number] IV Vancomycin HCl (Vancomycin HCl) 1,500 MG [...] distention Extremities: no edema Musculoskeletal: no tendereness Neuro/MATCHBOOK ASSEMBLER: alert, oriented X 3 Results Findings/Data: Laboratory [...] the posterior tibial artery. Impression By: [email or web address] - Javed Cline M.D. NUCLEAR MEDICINE - PULM VENT [...] for the consultation, any question please call [phone] at 2037 RPT #: [id number] END OF REPORT [facility] 2024-07-02 18:18:00 [facility] ([facility]) History Physical - Adult REPORT#:[id number] REPORT STATUS: Signed REPORT INITIALIZATION DATE:07/02/24 TIME:1817 PATIENT: NAVJOT DAS UNIT #: [id number] ROOM/BED: S204-1 : 38 AGE: 83 SEX: M ATTEND: [...] dyslipidemia, PAD with chronic right foot ulcer, OR and status post CABG, presents to the emergency room with a complaint of shortness of breath and right lower extremity pain. According to patient, this shortness of breath started a few days ago and progressively got worse. The yuvjxmmm-gd-jav at bedside said the home health care [...] supposed to see a vascular surgeon and chief cruiser for possible surgical intervention next week but they would rather have it done here in [place] hence the drop from [facility] to [place]. Dr. Norman nail tech and Dr. Sujit conley chief cruiser both consulted History Past medical history: Reports: [...] 500 MG X1ED STA 07/02 1412 DC 03 (ZITHROMAX) IV 07/02 1511 1610 Sodium Chloride 250 ML (0.9% Sodium Chloride) Ceftriaxone Sodium 1,000 MG X1ED STA 07/02 1412 AC 03/04 (ROCEPHIN) IV 07/03 0011 1609 Sterile Water [...] 07/02 2359 1618 Sodium Chloride 1,000 ML .[id number] 07/02 1600 AC (0.9% Sodium IV 07/03 1456 Chloride) Sodium Chloride 250 ML X1ED STA 07/02 1412 AC 07/02 (0.9% Sodium IV / 2359 1610 Chloride) Gastrointestinal Drugs Sig/Krysten Start [...] erythema, nd gangrene Musculoskeletal: Moves all extremities Neuro/MATCHBOOK ASSEMBLER: alert, oriented X 3, normal speech Skin: [...] Report Impression - Status: SIGNED Entered: 07/02/2024 141 IMPRESSION: No acute intrathoracic abnormality. Impression By: Eva Crawford M.D. CAT SCAN - CT HEAD/BRAIN W/O CONT 07/02 1405 Report Impression - Status: SIGNED Entered: 07/02/2024 141 IMPRESSION: No acute intracranial abnormality. Impression By: Eva Crawford M.D. CAT SCAN - CT C-SPINE W/O CONT 07/02 1405 Report Impression - [...] Impression By: Eva Crawford M.D. ULTRASOUND - [facility] ART UNI RT 07/02 1640 Report Impression - Status: SIGNED Entered: 07/02/2024 1735 IMPRESSION: Right lower extremity demonstrates occluded dorsalis pedis artery. Monophasic waveforms in the posterior tibial artery. Impression By: [email or web address] - Javed Cline M.D. Diagnosis, Assessment Plan Problem List/A P: 1. CORI (acute kidney injury) 2. Chronic ulcer of right foot 3. Hyperkalemia Free Text DxA P Notes Free Text DxA P Notes: 83-year-old male patient with past medical history of diabetes mellitus, hypertension, dyslipidemia, PAD with chronic right foot ulcer, OR and status post CABG, admitted for # Ischemic limb, right lower extremity/severe PAD # Diabetic foot ulcer Ultrasound showed "Right lower extremity demonstrates occluded dorsalis pedis artery". Admit to telemetry, inpatient Routine vital signs Strict I's and O's Started on heparin drip, statin and aspirin Polymer Scientist and chief cruiser consulted, appreciate input # Hyperkalemia Patient given [...] # Atypical chest pain # History of OR status post CABG Trend troponin Review home medications and start the appropriate ones. Currently we do not have the list family to bring. Started on pravastatin and aspirin and heparin drip. DVT prophylaxis with heparin Full code Plan of care discussed with patient and family and all questions addressed Next of kin: Spouse at 1845 at 1221 RPT #: [id number] END OF REPORT [facility] 2024-07-02 13:53:00 [facility] ([facility]) EMERGENCY PROVIDER REPORT REPORT#:[id number] REPORT STATUS: Signed DATE:07/02/24 TIME:1353 PATIENT: NAVJOT DAS UNIT #: [id number] ROOM/BED: [place] [id number] : 38 AGE: 83 SEX: M PCP PHYS: Leatha Mcdowell DO SERVICE AUTHOR: Jasiel Sullivan MD REP SRV REP SRV TM: 1356 * ALL edits or amendments must be made on the electronic/computer document * HPI-Chest Pain 40 and Over Free Text HPI Notes Free Text HPI Notes 83-year-old male history of diabetes, CKD, PAD with chronic right foot wound, CABG/OR years ago, hypertension presents to the emergency [...] Delivery Room air 07/02 1521 Temp 36.7 / 1521 Pulse 99 07/02 1521 Resp 18 07/02 1521 Review of [...] - XR FOREARM 2 VIEWS LT 07/02 142 Report Impression - Status: SIGNED Entered: 07/02/2024 1457 IMPRESSION: No acute bony abnormality of the left forearm. Impression By: Eva Crawford M.D. RADIOLOGY - XR HUMERUS 2+V LT 07/02 1422 Report Impression - Status: SIGNED Entered: 07/02/2024 1456 IMPRESSION: No acute bony abnormality of the left humerus. Impression By: Eva Crawford M.D. RADIOLOGY - XR CHEST 1 V 07/02 142 Report Impression - Status: SIGNED Entered: 07/02/2024 1458 IMPRESSION: No acute cardiopulmonary disease. Impression By: Eva Crawford M.D. Lab Imaging Statement Laboratory radiographic studies reviewed and considered in the medical decision-making. Point of Care Testing Pulse Oximetry Pulse Ox % 99 On: Room air Interpretation Interpreted by me, Pulse oximetry normal Time 1356 ECG #1 [...] as stated above 3. Consultants: Dr. Self; pusher runner recommends 75 cc/h of NS for hyponatremia. [...] 1,500 MG X1ED STA 07/02 1452 DC 03/04 Sodium Chloride 250 ML IV 03/ 1751 1610 Azithromycin 500 MG X1ED STA / 1412 DC 03/04 Sodium Chloride 250 ML IV 03/04 1511 1610 Ceftriaxone Sodium 1,000 MG X1ED STA / 1412 AC 03/04 Sterile Water 10 ML IV / 0011 1609 Central Nervous System Agents Sig/Krysten Start time Last Medication Dose Route Stop Time Status Admin Fentanyl Citrate 50 MCG X1ED STA 07/02 1346 AC 03/04 IV / 2359 1617 Aspirin 324 MG X1ED STA 07/02 1335 AC 03/04 PO / 2359 1618 Electrolytic, Caloric, And Isaias Sig/Krysten Start time Last Medication Dose Route Stop Time Status Admin Sodium Bicarbonate 100 MEQ X1ED STA 07/02 1601 AC 03/04 IV / 2359 1618 Sodium Chloride 1,000 ML .[id number] 07/02 1600 AC IV 07/03 1456 Sodium Chloride 250 ML X1ED STA 07/02 1412 AC / IV 07/02 2359 1610 Gastrointestinal Drugs Sig/Krysten Start time Last Medication Dose Route Stop Time Status Admin Ondansetron HCl 4 MG X1ED STA 07/02 1346 AC / IV 07/02 2359 1618 Differential Diagnosis )( Differential Diagnosis Acute [...] 99 / 1521 Resp 18 07/02 1521 All vital [...] with the family or caregiver. at [address] [facility] #: [id number] END OF REPORT [facility] 2024-06-28 10:38:03 Available refill at pharmacy, no [...] FlexTouch U-200) Class: eRX Route: Subcutaneous Order: [id number] Date/Time Signed: 04/19/2024 14:24 E-Prescribing Status: Receipt confirmed by pharmacy (04/19/2024 2:24 PM SCRAP DROP ENGINEER) P DROP ENGINEER Justine Kee RN [facility] 2024-06-28 10:36:11 Navjot Das is a 83 year old male Pt called requesting refill on rx insulin degludec (TRESIBA FLEXTOUCH U-200) 200 unit/mL (3 mL) InPn please advise. [facility] [address] AT [place] [address] [facility] 2024-06-17 10:10:46 Left voicemail for patient to call back and discuss scheduling with [place] EY Lamar [facility] 2024-06-17 09:54:30 At this time we do not have any OB available, the patient is welcome to make a sooner appt in [place] if he wishes. EY Kee RN [facility] 2024-06-17 09:49:17 Please advise EY Lamar [facility] 2024-06-14 08:44:20 Navjot Leigh Das is a 83 year old male Pt called to reschedule appt cancelled in june next avail was not till 10/08/2024 pt states he can not wait that long asking for something sooner is there any way pt can be OB in to schedule pt is also on the wait list please advise [phone] (home). EY Cam [facility] 2024-02-06 13:26:38 CLINICAL PHARMACY ENDOCRINOLOGY VISIT [...] future. Thank you. Mani Major PharmD PGY2 Labor And Delivery Nurse Fire Pot Operator Mani Major [facility] 2024-01-09 16:20:04 I was present with the resident at the time of this encounter on 01/09/24. Patient missed appointment with EILEEN [place] on 01/05/2024. BLACK STUDIES PROFESSOR requested PharmD to call patient to adjust insulin since he missed his appointment. I discussed the case with Josselin Castillo PharmD (PGY1 Fire Pot Operator) and agree to sign off due to multiple unsuccessful attempts to reach the patient. Debby Peralta PharmD, [facility] Pharmacy Clinical Counsel- Endocrinology Debby Peralta [facility] 2024-01-09 15:15:36 CLINICAL PHARMACY ENDOCRINOLOGY VISIT DATE: [...] future. Thank you. Josselin Castillo, PharmD PGY1 Fire Pot Operator Josselin Castillo [facility] 2024-01-09 09:15:44 CLINICAL PHARMACY ENDOCRINOLOGY VISIT Navjot [...] daily and will notify Beronica Bueno NP. 01/08/24: Unable to reach patient. Left voicemail with callback number. Will try again tomorrow. Josselin Castillo PharmD PGY1 Fire Pot Operator [facility] 2024-01-03 14:40:31 I was present with the resident at the time of this encounter on 01/03/24. I discussed the case with Josselin Castillo PharmD (PGY1 Fire Pot Operator) and agree with the recommendations provided. PharmD will follow up with patient after Endocrinology visit. Debby Peralta PharmD, [facility] Pharmacy Clinical Counsel- Endocrinology Debby Peralta [facility] 2024-01-03 07:03:24 CLINICAL PHARMACY ENDOCRINOLOGY VISIT DATE: [...] Phone 01/05/2024 2:00 PM Beronica Bueno AGPCNP [facility] Endocrinology, [facility] [phone] Josselin Castillo, PharmD PGY1 Fire Pot Operator Josselin Castillo [facility] 2023-11-10 14:00:00 Addended by: BERONICA RODRÍGUEZ on: 11/19/2023 07:43 PM Modules accepted: Orders [facility]
[2025-01-24 10:30] LABS: Absolute Lymphocytes (CBC) 1.2 K/uL (0.7-4.9); Hematocrit 32.0 % (39.6-49.0); Hemoglobin 10.3 g/dL (13.6-17.9); MCH 24.9 pg (27.0-35.0); MCHC 32.1 g/dL (32.0-36.0); MCV 77.3 fL (80-100); MPV 7.9 fL (7.6-11.3); Nucleated RBC Absolute Count 0.0 (0-0); Nucleated Red Blood Cells % 0.1 % (0-0); RBC Red Blood Cell Count 4.14 M/uL (4.33-5.43); White Blood Count 5.90 thou/uL (4.3-10.9)
--- NOTE | 2025-01-24 10:39 | RAD REPORT ---
EXAM: CT brain without contrast HISTORY: STROKE ALERT COMPARISON: None TECHNIQUE: Multiple contiguous axial images were obtained and a CT of the brain without contrast. Sag ittal and coronal reformats were performed. One or more of the following dose reduction techniques were used: Automated exposure control, adjust ment of the mA and/or kV according to patient size, and/or iterative reconstruction. FINDINGS: There is a large area of diminished density seen in the distribution of the right MCA territory carly tible with acute to subacute infarct. No hemorrhagic component. No midline shift. No evidence of hydrocephalus. The calvarium is intact. The visualized paranasal sinuses and mastoid air cells are essentially clear . Vertebral atherosclerosis. 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 The findings were communicated with Terry Wells MD at 01/24/2025 10:19 AM by telephone.
[2025-01-24 10:58] LABS: PT Prothrombin Time 13.6 SECONDS (10-13.0); Protime INR 1.21
[2025-01-24] MEDS ORDERED: FAMOTIDINE 20 MG/2 ML VIAL IV ONE (11:00)
[2025-01-24] MEDS ORDERED: NA CHLORIDE 0.9% 1,000 ML ONE (11:00)
[2025-01-24] MEDS ORDERED: FOLIC ACID 5 MG/ML VIAL ONE (11:00)
--- NOTE | 2025-01-24 11:00 | RAD REPORT ---
EXAMINATION: CTA HEAD CLINICAL INDICATION: STROKE ALERT TECHNIQUE: Axial CT images were obtained through the head after intravenous contrast utilizing angiog raphic protocol with 3D post-processing (maximum intensity projection images, volume rendered images and/or shaded surface rendered images). One or more of the following dose reduction technique s were used: Automated exposure control, adjustment of the mA and/or kV according to patient size, and/or iterative reconstruction. Unless otherwise specified, incidental findings do not require dedic ated imaging follow-up. COMPARISON: No prior exam. FINDINGS: ICA: The petrous, cavernous, and supraclinoid segments of the bilateral internal carotid arteries are normal. The ophthalmic artery origins are visualized and normal. The posterior communicating arteries are patent. HELGA: Anterior cerebral arteries are normal bilaterally. The anterior communicating artery is patent. MCA: Right distal M1 segment demonstrates abrupt flow truncation. Left MCA appears patent. MEDICAL TECHNOLOGIST PRN: Posterior cerebral arteries are normal bilaterally. Vertebrobasilar: Moderately severe atherosclerotic plaquing of both vertebral arteries. Patent basila r artery. 3D images confirm these findings. IMPRESSION: Evidence of right M1 segment large vessel occlusion.
--- NOTE | 2025-01-24 11:04 | RAD REPORT ---
EXAMINATION: CT CERVICAL SPINE WITHOUT CONTRAST HISTORY: PAIN COMPARISON: None TECHNIQUE: Multiple contiguous axial images were obtained in a CT of the cervical spine without IV co ntrast. Sagittal and coronal reformats were performed. One or more of the following dose reduction techniques were used: Automated exposure control, adjustment of the mA and kV according to patient si ze, and iterative reconstruction. Unless otherwise specified, incidental findings do not require dedicated imaging follow-up. FINDINGS: No evidence of acute fracture or subluxation. Moderate mid and lower cervical degenerative spondylosi s. Odontoid is normal lateral masses are symmetric. Small right pleural effusion. IMPRESSION: No evidence of acute osseous abnormality of the cervical spine.
[2025-01-24 11:12] LABS: AST/SGOT 12 U/L (15-37); Albumin 2.2 g/dL (3.4-5.0); Albumin/Globulin Ratio 0.5 (1.1-1.8); Alkaline Phosphatase 161 U/L (45-117); Anion Gap 9.5 mEq/L (5.0-15.0); BUN Blood Urea Nitrogen 42 mg/dL (7-18); Globulin 4.1 g/dL (2.3-3.5); Glucose Level 176 mg/dL (74-106); Lipase 10 U/L (13-75); Magnesium 1.3 mg/dL (1.6-2.4); NT PRO-BNP 10965 pg/mL (<450); Potassium 4.5 mEq/L (3.5-5.1)
[2025-01-24 11:15] LABS: ALT/SGPT < 14 U/L (16-61); Bilirubin Indirect, Calculated 0.0 mg/dL (0.2-0.8)
[2025-01-24 11:17] LABS: Troponin High Sensitivity 2325.8 pg/mL (<58.9)
--- NOTE | 2025-01-24 11:17 | RAD REPORT ---
EXAMINATION: CTA NECK CLINICAL INDICATION: PAIN TECHNIQUE: Axial CT images were obtained from the aortic arch to the skull base after intravenous con trast utilizing angiographic protocol with 3D post-processing (maximum intensity projection images, volume rendered images and/or shaded surface rendered images). One or more of the following dose redu ction techniques were used: Automated exposure control, adjustment of the mA and/or kV according to patient size, and/or iterative reconstruction. Unless otherwise specified, incidental findings do not require dedicated imaging follow-up. COMPARISON: No prior exam. FINDINGS: AORTA: The imaged aortic arch is normal. Moderate atherosclerosis of the origin of left subclavian ar crystal. CCA: Moderate atherosclerosis of both distal common carotid arteries, greater on the left. ICA/ECA: Atherosclerotic hard plaque noted proximal right ICA and bulb results in stenosis estimated at 80-90%. Heavy atherosclerotic plaquing proximal left ICA and carotid bulb results in severe stenosis estimated at 95%. VERTEBRAL: The cervical vertebral arteries are patent. Left vertebral artery mildly dominant. SOFT TISSUE: No significant neck soft tissue abnormalities. Right pleural effusion seen. 3D images confirm these findings. IMPRESSION: Severe carotid stenosis identified both proximal ICA, greater on the left. NASCET criteria used. Mild 0-49% stenosis Moderate 50-69% stenosis Severe 70-99% stenosis
--- NOTE | 2025-01-24 11:25 | RAD REPORT ---
EXAM: CT CHEST, ABDOMEN AND PELVIS WITH CONTRAST CLINICAL INDICATION: PAIN TECHNIQUE: CT chest, abdomen and pelvis was performed, following the administration of contrast, as p er department protocol. Axial, sagittal and coronal reconstructions were obtained. One or more of the following dose reduction techniques were used: Automated exposure control, adjustment of the mA a nd/or kV according to patient size, and/or iterative reconstruction. Unless otherwise specified, incidental findings do not require dedicated imaging follow-up. COMPARISON: No prior exam. FINDINGS: LUNGS: Atelectasis is present in the right lung base. Mild interstitial pulmonary edema likely presen t. PLEURA: Small left and moderate to large right pleural effusion. Calcified pleural plaques are presen t. MEDIASTINUM AND LYMPH NODES: No mediastinal mass or fluid collection. Normal size mediastinal, hilar, and axillary lymph nodes. Mild cardiomegaly. OSSEOUS STRUCTURES AND CHEST WALL: Intact. LIVER: 15 mm low-density lesion superior lateral right lobe liver. This is likely benign. No aggressi ve liver lesion or biliary dilatation. Grossly unremarkable gallbladder. PANCREAS: Stigmata of chronic pancreatitis noted. SPLEEN: Normal size. No focal lesion. ADRENALS: Normal; no mass. KIDNEYS: No renal mass or significant hydronephrosis. There is mild enhancement of the uroepithelium noted, greater on the right. URINARY BLADDER: Significant wall thickening and surrounding inflammation suggesting cystitis. GASTROINTESTINAL TRACT: No bowel obstruction, free air, significant free fluid or abscess. APPENDIX: Appendix not visualized, but no inflammatory changes in region of appendix. LYMPH NODES: No lymphadenopathy. MUSCULOSKELETAL: No acute or suspicious osseous abnormality. IMPRESSION: Small left and moderate to large right pleural effusion. 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 Cystitis findings are suspected with probable ascending urinary tract infection the right. Chronic pancreatitis. Mild CHF with cardiomegaly. No definitive trauma-related abnormality seen.
--- NOTE | 2025-01-24 11:28 | EDPHYS ---
Physician Documentation [facility] Name: Bon Das Age: 84 yrs Sex: Male : 1940 Arrival Date: 01/24/2025 Time: 10:04 Bed 14 Private MD: ED Physician Terry Wells HPI: 01/24 11:15 This 84 yrs old Male presents to ER via EMS with complaints of S/S of bonnie Possible Stroke. 11:15 The patient's problem is reported as weakness, in the left upper extremity, in the left bonnie lower extremity, in the left side of face. Onset: The symptoms/episode began/occurred last night, last normal 11 pm. Duration: The episode is continuous. Context: the episode(s) was witnessed, by family, symptoms became apparent [employer]. The symptoms are alleviated by nothing. The symptoms are aggravated by nothing. Associated signs and symptoms: The patient has no apparent associated signs or symptoms. Severity of symptoms: At their worst the symptoms were moderate in the emergency department the symptoms are unchanged. Patient's baseline: Neuro: alert and fully oriented. It is unknown whether or not the patient has had similar symptoms in the past. Historical: - Allergies: 10:15 Doxycycline; hb - Home Meds: 10:15 glipizide 10 mg Oral tab [Active]; hydrochlorothiazide 25 mg Oral tab [Active]; hb lisinopril 5 mg Oral tab [Active]; metformin 1 Oral tab 1 tab 2 times per day [Active]; metoprolol tartrate 50 mg Oral tab [Active]; simvastatin 40 mg Oral tab [Active]; simvastatin 40 mg Oral tab [Active]; - PMHx: 10:15 diabetes mellitus; Hypertensive disorder; Myocardial infarction; june 2023; hb - PSHx: 10:15 cardiac stents; Coronary artery bypass graft; hb - Immunization history:: Adult Immunizations up to date. - Infectious Disease History:: Denies. - Social history:: Smoking status: . - Family history:: not pertinent. ROS: 11:15 Constitutional: Negative for fever, chills, and weight loss, Eyes: Negative for injury, bonnie pain, redness, and discharge, ENT: Negative for injury, pain, and discharge, Neck: Negative for injury, pain, and swelling, Cardiovascular: Negative for chest pain, palpitations, and edema, Respiratory: Negative for shortness of breath, cough, wheezing, and pleuritic chest pain, Abdomen/GI: Negative for abdominal pain, nausea, vomiting, diarrhea, and constipation, Back: Negative for injury and pain, : Negative for injury, bleeding, discharge, and swelling, Skin: Negative for injury, rash, and discoloration, Psych: Negative for depression, anxiety, suicide ideation, homicidal ideation, and hallucinations, Allergy/Immunology: Negative for hives, rash, and allergies, Endocrine: Negative for neck swelling, polydipsia, polyuria, polyphagia, and marked weight changes, Hematologic/Lymphatic: Negative for swollen nodes, abnormal bleeding, and unusual bruising, 11:15 MS/extremity: Positive for decreased range of motion, of the face, left arm and left leg, 11:15 Neuro: Positive for Exam: :21 Radiologist reports: large m1 right mca bonnie 11:21 Constitutional: This is a well developed, well nourished patient who is awake, alert, and in no acute distress. Head/Face: Normocephalic, atraumatic. Eyes: Pupils equal round and reactive to light, extra-ocular motions intact. Lids and lashes normal. Conjunctiva and sclera are non-icteric and not injected. Cornea within normal limits. Periorbital areas with no swelling, redness, or edema. ENT: Nares patent. No nasal discharge, no septal abnormalities noted. Tympanic membranes are normal and external auditory canals are clear. Oropharynx with no redness, swelling, or masses, exudates, or evidence of obstruction, uvula midline. Mucous membranes moist. Neck: Trachea midline, no thyromegaly or masses palpated, and no cervical lymphadenopathy. Supple, full range of motion without nuchal rigidity, or vertebral point tenderness. No Meningismus. Chest/axilla: Normal chest wall appearance and motion. Nontender with no deformity. No lesions are appreciated. Cardiovascular: Regular rate and rhythm with a normal S1 and S2. No gallops, murmurs, or rubs. Normal PMI, no JVD. No pulse deficits. Respiratory: Lungs have equal breath sounds bilaterally, clear to auscultation and percussion. No rales, rhonchi or wheezes noted. No increased work of breathing, no retractions or nasal flaring. Abdomen/GI: Soft, non-tender, with normal bowel sounds. No distension or tympany. No guarding or rebound. No evidence of tenderness throughout. Back: No spinal tenderness. No costovertebral tenderness. Full range of motion. Male : Normal genitalia with no discharge or lesions. Skin: Warm, dry with normal turgor. Normal color with no rashes, no lesions, and no evidence of cellulitis. Psych: Awake, alert, with orientation to person, place and time. Behavior, mood, and affect are within normal limits. 11:21 ECG was reviewed by the Attending Physician. 11:21 Neuro: Orientation: Not oriented to person, place, time, situation, Mentation: slow to respond, Memory: unable to test, Cranial nerves: facial droop noted on left, Cerebellar function: unable to test, Motor: Strength is 1/5 in the left arm and left leg, Sensation: light touch is decreased in the left arm and left leg, Gait: not tested. Deep tendon reflexes are 1 (trace) + in the right bicep, right patellar and left bicep, Babinski testing is not performed, seizure activity, is not displayed by the patient, Vital Signs: 10:37 BP 141 / 77; Pulse 83; Resp 16; Temp 98.3; Pulse Ox 100% on R/A; Pain 0/10; hb 12:00 BP 146 / 76; Pulse 81; Resp 15; Pulse Ox 98% on R/A; hb 10:37 Pain Scale: Adult hb NIH Stroke Scale Scores: 10:41 NIHSS Score: 21 hb 11:20 NIHSS Score: 21 bonnie MDM: 10:05 Medical Screening Exam initiated bonnie 11:24 Differential diagnosis: CVA, TIA, Dementia, paralysis, metabolic disorder, drug bonnie effects. TNKase (Tenecteplase) Screening: Indications: Definite evidence of stroke, ischemic, embolic, or hypertensive: No. Treatment will start within 4.5 hours onset of symptoms: No. No evidence of intracranial hemorrhage or CT of head and no evidence of peripheral hemorrhage or recent CVA: Yes. Consent for thrombolytic therapy: No. Contraindications: Patient reports onset of signs and symptoms of stroke greater than 6 hours ago: Yes. Data reviewed: vital signs, nurses notes, EMS record, lab test result(s), EKG, radiologic studies, CT scan, plain films. Consideration of Admission/Observation Escalation of care including admission/observation considered. I considered the following discharge prescriptions or medication management in the emergency department Medications were administered in the Emergency Department. See MAR. Independent interpretation of the following test(s) in the Emergency Department EKG: See my EKG interpretation above. Test considered but Not performed: MRI: no mri. Historians other than the Patient: EMS: ems well informed. Care significantly affected by the following chronic conditions: Diabetes, Hypertension, Liver Disease, cad mi+. 01/24 10:10 Order name: Basic Metabolic Panel; Complete Time: [facility] 01/24 10:10 Order name: CBC with Diff; Complete Time: [facility] 01/24 10:10 Order name: LFT's; Complete Time: [facility] 01/24 10:10 Order name: Magnesium; Complete Time: [facility] 01/24 10:10 Order name: NT PRO-BNP; Complete Time: [facility] 01/24 10:10 Order name: PT-INR; Complete Time: [facility] 01/24 10:10 Order name: Troponin HS; Complete Time: [facility] 01/24 10:10 Order name: Lipase; Complete Time: [facility] 01/24 10:43 Order name: CREATININE WHOLE BLOOD; Complete Time: [facility] 01/24 10:10 Order name: XRAY Chest (1 view); Complete Time: [facility] 01/24 10:10 Order name: CT Stroke Brain w/o Contrast; Complete Time: [facility] 01/24 10:10 Order name: CT Head Angio; Complete Time: [facility] 01/24 10:10 Order name: CT Neck Angio; Complete Time: [facility] 01/24 10:10 Order name: CT C Spine; Complete Time: [facility] 01/24 10:10 Order name: CT Chest, Abdomen, Pelvis - W/Contrast; Complete Time: : [facility] 01/24 10:10 Order name: EKG; Complete Time: 10:10 [facility] 01/24 10:10 Order name: Cardiac monitoring; Complete Time: 10:55 [facility] 01/24 10:10 Order name: EKG - Nurse/Tech; Complete Time: 10:55 [facility] 01/24 10:10 Order name: IV Saline Lock; Complete Time: 11:05 [facility] 01/24 10:10 Order name: Labs collected and sent; Complete Time: 11:05 [facility] 01/24 10:10 Order name: O2 Per Protocol; Complete Time: 10:55 [facility] 01/24 10:10 Order name: O2 Sat Monitoring; Complete Time: 10:55 [facility] 01/24 11:28 Order name: IV Saline Lock - Large Bore [facility] 01/24 11:28 Order name: NPO; Complete Time: 11:30 bonnie EC:21 Rate is 81 beats/min. Rhythm is regular. QRS Pioneer is Normal. OR interval is normal. QRS bonnie interval is normal. QT interval is normal. No Q waves. T waves are Normal. No ST changes noted. Clinical impression: NSR w/ Non-specific ST/T Changes and No evidence of ischemia. Interpreted by me. Reviewed by me. Administered Medications: 11:04 Drug: Famotidine IVP 20 mg IVP once; dilute with 10 mL 0.9% NaCl; give over 2 minutes hb Route: IVP; Site: right antecubital; 11:05 Drug: foLIC Acid IVPB 1 mg IVPB once Route: IVPB; Site: right antecubital; hb 11:05 Drug: NS 0.9% IV 1000 ml IV at 1000 ml once; to be given as a bolus over 60 minutes hb Route: IV; Rate: 1000 ml; Site: right antecubital; 11:50 Drug: Keppra IV 1000 mg IV at per protocol once Route: IV; Rate: per protocol; Site: hb right antecubital; Point of Care Testing: Blood Glucose: 10:24 Blood Glucose: 190 mg/dL; hb Ranges: Critical Glucose Levels:Adult <50 mg/dl or >400 mg/dl <40 mg/dl or >180 mg/dl Disposition Summary: 01/24/25 11:28 Transfer Ordered Notes: Transfer Location: [facility] bonnie Reason: Higher level of care bonnie Condition: Critical bonnie Problem: new bonnie Symptoms: are unchanged bonnie Accepting Physician: to er , DR VIDES(01/24/25 12:01) hb Diagnosis - Cerebral infarction, unspecified - LARGE RIGHT MCA CVA, WITH LVO M1 OCCULSION bonnie - Type 2 diabetes mellitus with hyperglycemia bonnie - Hypomagnesemia bonnie - Pleural effusion in other conditions classified elsewhere - LARGE RIGHT bonnie - Non ST elevation [place] bonnie - Chronic kidney disease, unspecified bonnie Forms: - Medication Reconciliation Form bonnie - SBAR form bonnie Critical care time excluding procedures: 11:24 Critical care time: Bedside Care: 30 minutes, Consultation: 15 minutes, Family bonnie Intervention: 10 minutes. Total time: 55 minutes NIH Stroke Scale - NIH Stroke Score Date: 01/24/2025 Time: 10:41 Total Score = 21 10. Dysarthria (speech clarity - read or repeat words) - 1(Mild to Moderate) 11. Extinction and Inattention (visual/tactile/auditory/spatial/personal) - 2(Profound) 1a. Level of Consciousness (LOC) - 0(Alert) 1b. Level of Consciousness (LOC) (Month \T\ Age) - 0(Both) 1c. LOC Commands (Open \T\ Closes Eyes/Expert Witness) - 0(Both) 2. Best Gaze (Lateral Gaze Paresis) - 2(Forced deviation) 3. Visual Field Loss - 1(Partial hemianopia) 4. Facial Palsy - 1(Minor Paralysis) 5a. Left Arm: Motor (10-second hold) - 4(No movement) 5b. Right Arm: Motor (10-second hold) - 3(No effort against gravity) 6a. Left Leg: Motor (5-second hold - always test supine) - 4(No movement) 6b. Right Leg: Motor (5-second hold - always test supine) - 0(No drift) 7. Limb Ataxia (finger/nose \T\ heel/astorga - test with eyes open) - Notes: Right BKA 8. Sensory Loss (pinprick arms/legs/face) - 1(Mild to moderate loss) 9. Best Language: Aphasia (description/naming/reading) - 2(Severe aphasia) Initials: NIH Stroke Scale - NIH Stroke Score Date: 01/24/2025 Time: 11:20 Total Score = 21 10. Dysarthria (speech clarity - read or repeat words) - 1(Mild to Moderate) 11. Extinction and Inattention (visual/tactile/auditory/spatial/personal) - 1(Present) 1a. Level of Consciousness (LOC) - 1(Not Alert) 1b. Level of Consciousness (LOC) (Month \T\ Age) - 2(Neither) 1c. LOC Commands (Open \T\ Closes Eyes/Expert Witness) - 2(Neither) 2. Best Gaze (Lateral Gaze Paresis) - 1(Partial gaze palsy) 3. Visual Field Loss - 0(No visual loss) 4. Facial Palsy - 1(Minor Paralysis) 5a. Left Arm: Motor (10-second hold) - 4(No movement) 5b. Right Arm: Motor (10-second hold) - 0(No drift) 6a. Left Leg: Motor (5-second hold - always test supine) - 4(No movement) 6b. Right Leg: Motor (5-second hold - always test supine) - 0(No drift) 7. Limb Ataxia (finger/nose \T\ heel/astorga - test with eyes open) - 2(Present in two limbs) 8. Sensory Loss (pinprick arms/legs/face) - 1(Mild to moderate loss) 9. Best Language: Aphasia (description/naming/reading) - 1(Mild to moderate aphasia) Initials: bonnie Signatures: Dispatcher [employer] Terry Rodney MD MD cha Baxter, Heather RN RN hb Corrections: (The following items were deleted from the chart) 11:30 11:28 to er , DR PEEWEE nicole cha 11:30 11:30 to er , DR PEEWEE nicole cha 12:01 11:30 to er , DR PEEWEE nicole hb
--- NOTE | 2025-01-24 11:28 | ER ---
Nurse's Notes [facility] Name: Bon Das Age: 84 yrs Sex: Male : 1940 Arrival Date: 01/24/2025 Time: 10:04 Bed 14 Private MD: Diagnosis: Cerebral infarction, unspecified-LARGE RIGHT MCA CVA, WITH LVO M1 OCCULSION;Type 2 diabetes mellitus with hyperglycemia;Hypomagnesemia;Pleural effusion in other conditions classified elsewhere-LARGE RIGHT;Non ST elevation [place];Chronic kidney disease, unspecified Presentation: 01/24 10:15 Chief complaint: EMS states: Left sided paralysis upon waking today. Last seen normal hb last night at approx 11pm when EMS crew responded to fall/lift assist. 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 Coronavirus screen: At this time, the client does not indicate any symptoms associated with coronavirus-19. Ebola Screen: No symptoms or risks identified at this time. Initial Sepsis Screen: Does the patient meet any 2 criteria? No. Patient's initial sepsis screen is negative. Does the patient have a suspected source of infection? No. Patient's initial sepsis screen is negative. Risk Assessment: Do you want to hurt yourself or someone else? Patient reports no desire to harm self or others. Onset of symptoms was January 24, 2025. 10:15 Method Of Arrival: EMS: [facility] hb 10:15 Acuity: JOSE CRUZ 2 hb 10:24 An acute neurological deficit is present. The patients blood glucose was checked before hb arriving to the hospital and was found to be normal. Stroke Activation: Symptom onset > 6 hours Physician: ED Attending; Name: ; Notified At: ; Arrived At: Physician: Mid-Level Provider; Name: ; Notified At: ; Arrived At: Physician: [not used]; Name: ; Notified At: ; Arrived At: Physician: [not used]; Name: ; Notified At: ; Arrived At: Physician: [not used]; Name: ; Notified At: ; Arrived At: Historical: - Allergies: 10:15 Doxycycline; hb - Home Meds: 10:15 glipizide 10 mg Oral tab [Active]; hydrochlorothiazide 25 mg Oral tab [Active]; hb lisinopril 5 mg Oral tab [Active]; metformin 1 Oral tab 1 tab 2 times per day [Active]; metoprolol tartrate 50 mg Oral tab [Active]; simvastatin 40 mg Oral tab [Active]; simvastatin 40 mg Oral tab [Active]; - PMHx: 10:15 diabetes mellitus; Hypertensive disorder; Myocardial infarction; june 2023; hb - PSHx: 10:15 cardiac stents; Coronary artery bypass graft; hb - Immunization history:: Adult Immunizations up to date. - Infectious Disease History:: Denies. - Social history:: Smoking status: . - Family history:: not pertinent. Screenin:48 [facility] ED Fall Risk Assessment (Adult) History of falling in the last 3 months, hb including since admission Yes- physiologic fall (2 pts) Confusion or Disorientation Yes (5 pts) Intoxicated or Sedated No (0 pts) Impaired Gait Yes (1 pt) Mobility Assist Device Used Yes (1 pt) Altered Elimination Yes (1 pt) Score/Fall Risk Level 3 or more points = High Risk Oriented to surroundings, Maintained a safe environment, Educated pt \T\ family on fall prevention, incl call for assistance when getting out of bed. Abuse screen: Denies threats or abuse. Denies injuries from another. Nutritional screening: No deficits noted. Tuberculosis screening: No symptoms or risk factors identified. 11:04 [place] Swallow Protocol Exclusion Criteria: Unable to remain alert for testing: No hb Exclusion Criteria Result: Proceed Brief Cognitive Screen What is your name? Normal, Where are you right now? Normal, What year is it? Abnormal Oral Mechanism Examination Facial Symmetry: Normal, Motion: Normal, Lip Closure: Abnormal Oral Mechanism Result: Abnormal: . 3 oz Water Swallow Challenge: Pt able to drink all water without stopping, coughing, choking or throat clearing: No Result: PÉREZ GERBER Notified: Terry Wells MD. Assessment: 10:06 Reassessment: Code Stroke called. Pt to CT via stretcher with Nancy BAUM. hb 10:12 Reassessment: Blood sent to lab, outside lab notified. hb 10:36 Reassessment: Returned from CT with Nancy BAUM. Family at bedside. hb 10:41 VAN Scoring: Neglect: Forced gaze noted or unable to track to one side. Provider hb notified of +VAN scoring. [place] Swallow Protocol Exclusion Criteria: Unable to remain alert for testing: No Brief Cognitive Screen What is your name? Normal, Where are you right now? Normal, What year is it? Abnormal Oral Mechanism Examination Facial Symmetry: Abnormal Motion: Abnormal Lip Closure: Abnormal Oral Mechanism Result: Abnormal: not following commands . 3 oz Water Swallow Challenge: Result: FAIL MD Notified: Terry Wells MD. TNKase (Tenecteplase) Screening: Indications: Definite evidence of stroke, ischemic, embolic, or hypertensive: Yes. Treatment will start within 4.5 hours onset of symptoms: No. Vital Signs: 10:37 BP 141 / 77; Pulse 83; Resp 16; Temp 98.3; Pulse Ox 100% on R/A; Pain 0/10; hb 12:00 BP 146 / 76; Pulse 81; Resp 15; Pulse Ox 98% on R/A; hb 10:37 Pain Scale: Adult hb NIH Stroke Scale Scores: 10:41 NIHSS Score: 21 hb 11:20 NIHSS Score: 21 [facility] ED Course: 10:05 Patient arrived in ED. hb 10:05 Terry Wells MD is Attending Physician. bonnie 10:24 Triage completed. hb 10:24 Arm band placed on. hb 10:30 Patient has correct armband on for positive identification. Bed in low position. Call hb light in reach. Provided Education on: tests, result times. 10:30 Client placed on continuous cardiac and pulse oximetry monitoring. NIBP monitoring hb applied. conveyor monitor on. Pulse ox on. NIBP on. Warm blanket given. Pillow given. 10:31 CT Stroke Brain w/o Contrast In Process Unspecified. EDMS 10:31 CT Head Angio In Process Unspecified. EDMS 10:31 CT Neck Angio In Process Unspecified. EDMS 10:31 CT C Spine In Process Unspecified. EDMS 10:31 CT Chest, Abdomen, Pelvis - W/Contrast In Process Unspecified. EDMS 10:56 EKG done, by ED staff, reviewed by Terry Wells MD. em1 11:02 Maintain EMS IV. Dressing intact. Good blood return noted. Site clean \T\ dry. Gauge \T\ hb site: 20gRAC. Flushed with 10 mL NS. 11:[address] Wells with Aimee Lam from the [facility] eb Center. 11:19 XRAY Chest (1 view) In Process Unspecified. EDMS 11:[address] Hand the neuro salon professional for [facility] with Dr. Wells for eb patient transfer consultation. 11:23 Nancy Cline, RN is Primary Nurse. hb 11:59 No provider procedures requiring assistance completed. Patient transferred, IV remains hb in place. Administered Medications: 11:04 Drug: Famotidine IVP 20 mg IVP once; dilute with 10 mL 0.9% NaCl; give over 2 minutes hb Route: IVP; Site: right antecubital; 11:05 Drug: foLIC Acid IVPB 1 mg IVPB once Route: IVPB; Site: right antecubital; hb 11:05 Drug: NS 0.9% IV 1000 ml IV at 1000 ml once; to be given as a bolus over 60 minutes hb Route: IV; Rate: 1000 ml; Site: right antecubital; 11:50 Drug: Keppra IV 1000 mg IV at per protocol once Route: IV; Rate: per protocol; Site: hb right antecubital; Medication: 12:00 VIS not applicable for this client. hb Point of Care Testing: Blood Glucose: 10:24 Blood Glucose: 190 mg/dL; hb Ranges: Outcome: 11:28 ER care complete, transfer ordered by . bonnie 12:00 Transferred by helicopter to [facility], [facility] [place], 12:00 critical 12:00 Instructed on the need for transfer, 12:01 Patient left the ED. hb NIH Stroke Scale - NIH Stroke Score Date: 01/24/2025 Time: 10:41 Total Score = 21 10. Dysarthria (speech clarity - read or repeat words) - 1(Mild to Moderate) 11. Extinction and Inattention (visual/tactile/auditory/spatial/personal) - 2(Profound) 1a. Level of Consciousness (LOC) - 0(Alert) 1b. Level of Consciousness (LOC) (Month \T\ Age) - 0(Both) 1c. LOC Commands (Open \T\ Closes Eyes/Property Insurance Inspector) - 0(Both) 2. Best Gaze (Lateral Gaze Paresis) - 2(Forced deviation) 3. Visual Field Loss - 1(Partial hemianopia) 4. Facial Palsy - 1(Minor Paralysis) 5a. Left Arm: Motor (10-second hold) - 4(No movement) 5b. Right Arm: Motor (10-second hold) - 3(No effort against gravity) 6a. Left Leg: Motor (5-second hold - always test supine) - 4(No movement) 6b. Right Leg: Motor (5-second hold - always test supine) - 0(No drift) 7. Limb Ataxia (finger/nose \T\ heel/astorga - test with eyes open) - Notes: Right BKA 8. Sensory Loss (pinprick arms/legs/face) - 1(Mild to moderate loss) 9. Best Language: Aphasia (description/naming/reading) - 2(Severe aphasia) Initials: NIH Stroke Scale - NIH Stroke Score Date: 01/24/2025 Time: 11:20 Total Score = 21 10. Dysarthria (speech clarity - read or repeat words) - 1(Mild to Moderate) 11. Extinction and Inattention (visual/tactile/auditory/spatial/personal) - 1(Present) 1a. Level of Consciousness (LOC) - 1(Not Alert) 1b. Level of Consciousness (LOC) (Month \T\ Age) - 2(Neither) 1c. LOC Commands (Open \T\ Closes Eyes/Property Insurance Inspector) - 2(Neither) 2. Best Gaze (Lateral Gaze Paresis) - 1(Partial gaze palsy) 3. Visual Field Loss - 0(No visual loss) 4. Facial Palsy - 1(Minor Paralysis) 5a. Left Arm: Motor (10-second hold) - 4(No movement) 5b. Right Arm: Motor (10-second hold) - 0(No drift) 6a. Left Leg: Motor (5-second hold - always test supine) - 4(No movement) 6b. Right Leg: Motor (5-second hold - always test supine) - 0(No drift) 7. Limb Ataxia (finger/nose \T\ heel/astorga - test with eyes open) - 2(Present in two limbs) 8. Sensory Loss (pinprick arms/legs/face) - 1(Mild to moderate loss) 9. Best Language: Aphasia (description/naming/reading) - 1(Mild to moderate aphasia) Initials: bonnie Signatures: Dispatcher [employer] Terry Rodney MD MD cha Martinez, Benjamin em1 Nancy Cline, SARIKA RN Eileen Butterfield
--- NOTE | 2025-01-24 11:35 | RAD REPORT ---
EXAMINATION: ONE VIEW CHEST XR CLINICAL INDICATION: COUGH TECHNIQUE: Frontal chest projection is submitted. Examination is limited by patient positioning and t echnique. COMPARISON: 10/24/2024 FINDINGS: Bilateral pulmonary opacities greater on the right likely representing edema. Moderate right pleural effusion. The heart is upper limit of normal in size. Sternotomy wires.
[2025-01-24] MEDS ORDERED: NA CHLORIDE 0.9% 100 ML ONE (11:42)
[2025-01-24] MEDS ORDERED: MAGNESIUM SULFATE 1 gm IVPB 1 GM/100 ML BAG IV ONE (11:42)
[2025-01-24] MEDS ORDERED: LEVETIRACETAM 500 MG/5 ML VIAL IV ONE (11:42)
[2025-01-24 12:06] VITALS: TEMP 98.3
[2025-01-24 12:07] VITALS: BP 146/76; O2SAT 98
== END 2025-01-24 12:01 | disposition short-term general hospital (02) ==
LOC: ER 10:04
DX: I63.511 Cerebral infarction due to unspecified occlusion or stenosis of right middle cerebral artery (principal); I21.4 Non-ST elevation (NSTEMI) myocardial infarction; R29.721 NIHSS score 21; J91.8 Pleural effusion in other conditions classified elsewhere; E11.65 Type 2 diabetes mellitus with hyperglycemia; E83.42 Hypomagnesemia; I12.9 Hypertensive chronic kidney disease with stage 1 through stage 4 chronic kidney disease, or unspecified chronic kidney disease; N18.9 Chronic kidney disease, unspecified; Z95.1 Presence of aortocoronary bypass graft; Z95.818 Presence of other cardiac implants and grafts
CPT/HCPCS: 93005; 85025; 80048; 36415; 83735; 85610; 82565; 80076; 84484; 83690; 83880; 72125; 71260; 70496; 70498; 74177; 70450; 71045; 96375; 96374; 99285; Q9967; J3475; J1953; J7030